=== PATIENT | female | born 1950 | race Caucasian/White ===

== ENCOUNTER → 2016-04-01 | Outpatient (CLI) | payer OTHER, MEDICARE ==
[~2016-04-01] MED LIST: ASPI81TA28 PO; CHOL2000 PO; EFFSR150 PO; GABA-113 PO; HMLI SC; INSDGIPEN SC; INSU100I2 SC; INSUINJ SC; METF-384 PO; NXM/40 PO; SIMV20TA2 PO; VENL150T33 PO
[2016-04-01 13:22] LABS: ALT/SGPT 22 U/L (12-78); BLOOD UREA NITROGEN 16 mg/dl (7-18); BUN/CREATININE RATIO 24.1 (10-20); CALCIUM 8.9 mg/dl (8.5-10.1); CARBON DIOXIDE 28 mmol/L (21-32); CHLORIDE 105 mmol/L (98-107); CHOLESTEROL 249 mg/dl (0-200); CREATININE 0.68 mg/dl (0.60-1.20); GLUCOSE 160 mg/dl (70-99); POTASSIUM 4.1 mmol/L (3.5-5.1); SODIUM 141 mmol/L (136-145); TRIGLYCERIDES 108 mg/dl (0-150); VERY LOW DENSITY LIPOPROT CALC 22 mg/dl
[2016-04-01 13:25] LABS: ALB/GLOB RATIO 0.9 (0.9-2); ALKALINE PHOSPHATASE 105 U/L (45-117); AST/SGOT 14 U/L (15-37); CHOLESTEROL/HDL RATIO 3.2; HDL CHOLESTEROL 77 mg/dl; LDL CHOLESTEROL CALCULATED 150 mg/dl
[2016-04-01 13:34] LABS: ESTIMATED AVERAGE GLUCOSE 286 mg/dl; HA1C FLAG Normal (Normal)
== END | disposition home or self-care (01) ==
LOC: C.LABBC 11:57
PROVIDERS: ATTEND Internal Medicine Geriatric Medicine
DX: E78.5 Hyperlipidemia, unspecified (principal); E11.65 Type 2 diabetes mellitus with hyperglycemia

== ENCOUNTER → 2016-06-24 | Outpatient (CLI) | payer OTHER, MEDICARE ==
[2016-06-24 13:14] LABS: URINE APPEARANCE CLEAR (CLEAR); URINE BILIRUBIN NEG (NEG); URINE COLOR YELLOW; URINE NITRITE NEG (NEG); URINE PH 6.5 (4.5-7.5); UROBILINOGEN NEG (NEG)
[2016-06-24 13:19] LABS: MANUAL MICROSCOPIC REQUIRED? NO; REVIEW REQ? NO
== END | disposition home or self-care (01) ==
LOC: C.LABBC 11:10
PROVIDERS: ATTEND Internal Medicine Geriatric Medicine
DX: R39.9 Unspecified symptoms and signs involving the genitourinary system (principal)

== ENCOUNTER → 2016-07-21 | Outpatient (CLI) | payer OTHER, MEDICARE ==
[~2016-07-21] MED LIST changes: -ASPI81TA28 PO; -INSUINJ SC
--- NOTE | 2016-07-21 16:09 | MAMMOGRAPHY REPORT ---
BILATERAL DIGITAL SCREENING MAMMOGRAM WITH CAD: 07/21/2016 CLINICAL HISTORY: Routine screening. Patient has no complaints. TECHNIQUE: Current study was also evaluated with a Computer Aided Detection (CAD) system. Bilatera l CC and MLO views were obtained. COMPARISON: Comparison is made to exams dated: 07/02/2015 mammogram, 09/10/2013 mammogram, 08/20/2012 m ammogram, 08/17/2009 mammogram - [facility], 08/04/2008, and 02/18/2008 mammogram - [facility]. BREAST COMPOSITION: There are scattered areas of fibroglandular density in both breasts. FINDINGS: No suspicious masses, calcifications, or areas of architectural distortion are noted in e ither breast. There has been no significant interval change compared to prior exams. Bilateral matt gn appearing masses/asymmetries are stable compared to prior exams. Bilateral benign-appearing calc ifications are stable. IMPRESSION: ACR BI-RADS CATEGORY 2: BENIGN There is no mammographic evidence of malignancy. A 1 year screening mammogram is recommended. The p atient will receive written notification of the results. Approximately 10% of breast cancers are not detected with mammography. A negative mammographic repor t should not delay biopsy if a clinically suggestive mass is present. Sue Nur M.D. /:07/21/2016 16:00:06 Asphalt Paving Superintendent: Mary Carmen Ortiz, [facility] letter sent: Normal 1/2 BI-RADS Code: ACR BI-RADS Category 2: Benign
== END | disposition home or self-care (01) ==
LOC: C.MAMM 13:07
PROVIDERS: ATTEND Internal Medicine Geriatric Medicine
DX: Z12.31 Encounter for screening mammogram for malignant neoplasm of breast (principal)

== ENCOUNTER → 2016-08-08 | Outpatient (CLI) | payer OTHER, MEDICARE ==
[2016-08-08 15:10] LABS: MANUAL MICROSCOPIC REQUIRED? YES; URINE APPEARANCE CLOUDY (CLEAR); URINE BILIRUBIN NEG (NEG); URINE NITRITE NEG (NEG); URINE SPECIFIC GRAVITY 1.025 (1.000-1.030); UROBILINOGEN NEG (NEG)
[2016-08-08 15:20] LABS: REVIEW REQ? NO; URINE COLOR YELLOW
[2016-08-08 15:22] LABS: URINE RBC 0-4 /hpf (0-4)
[2016-08-08 15:23] LABS: URINE BACTERIA 2+ (NEG)
[2016-08-08 15:55] LABS: RATIO 21.6 mcg/mg (0-30.0)
[2016-08-09 06:25] LABS: ESTIMATED AVERAGE GLUCOSE 269 mg/dl; HA1C FLAG Normal (Normal)
== END | disposition home or self-care (01) ==
LOC: C.LABBC 10:41
PROVIDERS: ATTEND Physician Assistant
DX: E66.9 Obesity, unspecified (principal); E11.65 Type 2 diabetes mellitus with hyperglycemia; R30.0 Dysuria

== ENCOUNTER 2016-10-28 16:39 | Emergency (ER) | payer OTHER, MEDICARE ==
[~2016-10-28 16:39] MED LIST changes: -CHOL2000 PO; -INSU100I2 SC; -VENL150T33 PO
[2016-10-28 16:44] VITALS: BP 119/77; PULSE 98; TEMP 36.7; O2SAT 98
[2016-10-28] MEDS ORDERED: VENL150T33 PO (17:26)
[2016-10-28] MEDS ORDERED: INSU100I2 SC ×3 (17:26)
[2016-10-28] MEDS ORDERED: CHOL2000 PO (17:27)
--- NOTE | 2016-10-28 20:31 | EMERGENCY ROOM VISIT NOTE ---
History First contact with patient: 16:47 Chief Complaint: FOREIGNBODY ANY BODY PART Stated Complaint: SOMETHING STUCK IN R EAR History of Present Illness The patient is a 66 year old female who presents to the Emergency Room with complaints of a Q-tip head stuck in her ear. The patient reports that she uses Q-tips daily. Her right ear has been itchy lately. She stuck a generic Q-tip in the ear and the cotton fell off. She was seen at her PCPs office where they tried to flush it out without success. The patient denies any pain or bleeding from the ear. Review of Systems 10 system review was performed and was negative except for pertinent positives and negatives as indicated in history of present illness Past Medical/Surgical History Medical Problems: (1) Gastroparesis (2) Major Depressive Disorder, Single Episode, Unspecified (3) Reflux Esophagitis (4) Type 2 Diabetes Mellitus Without Complications Surgical Problems: (1) History of right knee joint replacement Social History Problems: (1) Radiculopathy, Lumbar Region Family History FH: cancer Social History Smoking Status: Current Every Day Smoker Alcohol Use: occasionally Marital Status: Occupation Status: disabled Current/Historical Medications Scheduled Cholecalciferol (Vitamin D3), 1 CAP PO DAILY Esomeprazole Magnesium (Nexium), 40 MG PO DAILY Gabapentin (Neurontin), 300 MG PO BID Insulin Glargine (Lantus Solostar), 68 SC QPM Insulin Lispro (Human) (Humalog Kwikpen), 20 UNITS SC QAM Insulin Lispro (Human) (Humalog Kwikpen), 15 UNITS SC W/LUNCH Insulin Lispro (Human) (Humalog Kwikpen), 28 UNITS SC W/SUPPER Metformin Hcl (Glucophage), 1,000 MG PO BID Simvastatin (Zocor), 20 MG PO QPM Venlafaxine Hcl (Venlafaxine Hcl Er), 1 TAB PO DAILY Physical Exam Vital Signs Date Time Temp Pulse Resp B/P (MAP) Pulse Ox O2 Delivery O2 Flow Rate FiO2 10/28/16 16:44 36.7 98 20 119/77 98 Room Air Pain Rating (0-10): 0 Physical Exam CONSTITUTIONAL: Healthy and well nourished. Alert and oriented X 3 with positive affect. She does not appear in any acute distress. HEENT: Normocephalic, atraumatic. Pupils equal, round and reactive. Examination of the right ear shows white cotton consistent with a head of a Q- tip. There is no obvious trauma to the outer ear or auditory canal. Examination of the left ear shows significant scarring of the TM and external auditory canal. There is no erythema or edema of the auditory canal. NECK: Full active range of motion without discomfort. RESPIRATORY: Clear to auscultation bilaterally with no wheezing, crackles, rhonchi or stridor. CARDIOVASCULAR: Regular rate and rhythm with no murmurs, rubs or gallops. INTEGUMENTARY: No rash or other significant dermatologic conditions noted. NEUROLOGIC: No focal neurologic deficits noted. Medical Decision & Procedures Procedure The cotton Q-tip head was successfully removed using an otoscope and mosquito forceps. ED Course Patient history and physical exam were performed. Nurse's notes were reviewed. Vital signs were reviewed and normal. Foreign-body removal was performed using an otoscope and mosquito forceps. Reexamination of the ear does not show any additional trauma. The patient does have chronic changes in both ears consistent with prior Q-tip trauma. The patient was encouraged to refrain from cleaning her ears with a Q-tip. I did suggest using mineral oil. She may also follow-up with her family doctor for further management. The patient voiced understanding of all discharge instructions, and denied any pain at the time of discharge. The patient was also seen and examined by Dr. Trejo, ED attending physician, who agrees with workup and plan of care. Medical Decision Medication Reconcilliation Current Medication List: was personally reviewed by me Blood Pressure Screening Patient's blood pressure: Normal blood pressure Impression Primary Impression: Foreign body of ear, right Departure Information Dispostion Home / Self-Care Condition GOOD Forms HOME CARE DOCUMENTATION FORM, IMPORTANT VISIT INFORMATION Patient Instructions My [facility] [employer] Additional Instructions Do not use Q-tips inside the ear canal as it can cause damage and infection, plus impact what little earwax you may have further into the canal. Suggest applying a drop of mineral oil twice weekly over the next few weeks, then once weekly to help moisturize and keep your earwax soft. It is much safer to irrigate the ear with warm water and bulb suction. Problem Qualifiers Primary Impression: Foreign body of ear, right Encounter type: initial encounter Qualified Codes: T16.1XXA - Foreign body in right ear, initial encounter
== END 2016-10-28 17:27 | disposition home or self-care (01) ==
LOC: C.EDB 16:40 → C.EDD 17:27
DX: T16.1XXA Foreign body in right ear, initial encounter (principal); X58.XXXA Exposure to other specified factors, initial encounter; F32.9 Major depressive disorder, single episode, unspecified; K21.0 Gastro-esophageal reflux disease with esophagitis; K31.84 Gastroparesis; Z80.9 Family history of malignant neoplasm, unspecified; F17.210 Nicotine dependence, cigarettes, uncomplicated; Z79.4 Long term (current) use of insulin; Z79.899 Other long term (current) drug therapy; E78.5 Hyperlipidemia, unspecified; E11.65 Type 2 diabetes mellitus with hyperglycemia; R53.83 Other fatigue; E55.9 Vitamin D deficiency, unspecified; R39.9 Unspecified symptoms and signs involving the genitourinary system

== ENCOUNTER → 2016-10-28 | Outpatient (CLI) | payer OTHER, MEDICARE ==
[2016-10-28 13:14] LABS: BASO % 0.4 %; BASO ABS # 0.03 K/uL (0-0.2); COMPLETE YES; EOS % 3.2 %; HEMATOCRIT 42.5 % (37-47); IG% 0.3 %; LYMPH % 29.8 %; LYMPH ABS # 2.36 K/uL (1.2-3.4); MEAN CELL VOLUME 85.9 fL (80-100); MEAN CORPUSCULAR HEMOGLOBIN 28.3 pg (25-34); MEAN CORPUSCULAR HGB CONC 32.9 g/dl (32-36); MEAN PLATELET VOLUME 9.6 fL (7.4-10.4); MONO % 5.5 %; NEUT % 60.8 %; PLATELET COUNT 271 K/uL (130-400); RED BLOOD COUNT 4.95 M/uL (4.2-5.4); WHITE BLOOD COUNT 7.93 K/uL (4.8-10.8)
[2016-10-28 13:30] LABS: ALT/SGPT 34 U/L (12-78); BLOOD UREA NITROGEN 14 mg/dl (7-18); BUN/CREATININE RATIO 18.5 (10-20); CALCIUM 9.3 mg/dl (8.5-10.1); CARBON DIOXIDE 31 mmol/L (21-32); CHLORIDE 99 mmol/L (98-107); CHOLESTEROL 164 mg/dl (0-200); CREATININE 0.78 mg/dl (0.60-1.20); GLUCOSE 263 mg/dl (70-99); POTASSIUM 3.7 mmol/L (3.5-5.1); SODIUM 136 mmol/L (136-145)
[2016-10-28 13:39] LABS: ALKALINE PHOSPHATASE 127 U/L (45-117); AST/SGOT 13 U/L (15-37); CHOLESTEROL/HDL RATIO 2.6; HDL CHOLESTEROL 64 mg/dl; LDL CHOLESTEROL CALCULATED 76 mg/dl; TRIGLYCERIDES 121 mg/dl (0-150); VERY LOW DENSITY LIPOPROT CALC 24 mg/dl
[2016-10-28 14:54] LABS: MANUAL MICROSCOPIC REQUIRED? YES; URINE APPEARANCE SL CLOUDY (CLEAR); URINE BILIRUBIN NEG (NEG); URINE COLOR YELLOW; URINE NITRITE POS (NEG); URINE SPECIFIC GRAVITY >= 1.030 (1.000-1.030); UROBILINOGEN NEG (NEG)
[2016-10-28 14:55] LABS: REVIEW REQ? NO
[2016-10-28 15:03] LABS: ZZUR CULT IF INDIC CLEAN CATCH YES
[2016-10-28 15:10] LABS: URINE BACTERIA 4+ (NEG)
[2016-10-28 15:11] LABS: URINE RBC 0-4 /hpf (0-4)
== END | disposition home or self-care (01) ==
LOC: C.LABBC 12:09
PROVIDERS: ATTEND Internal Medicine Geriatric Medicine
DX: E78.5 Hyperlipidemia, unspecified (principal); E11.65 Type 2 diabetes mellitus with hyperglycemia; R53.83 Other fatigue; E55.9 Vitamin D deficiency, unspecified; R39.9 Unspecified symptoms and signs involving the genitourinary system

== ENCOUNTER → 2016-11-18 | Outpatient (CLI) | payer OTHER, MEDICARE ==
[~2016-11-18] MED LIST changes: +CHOL2000 PO; -EFFSR150 PO; -HMLI SC; +INSU100I2 SC; +VENL150T33 PO
[2016-11-18 13:39] LABS: ESTIMATED AVERAGE GLUCOSE 246 mg/dl; HA1C FLAG Normal (Normal)
== END | disposition home or self-care (01) ==
LOC: C.LABBC 11:43
PROVIDERS: ATTEND Nurse Practitioner Family
DX: E11.65 Type 2 diabetes mellitus with hyperglycemia (principal)

== ENCOUNTER → 2017-01-08 | Outpatient (CLI) | payer OTHER, MEDICARE ==
--- NOTE | 2017-01-08 16:53 | DIAGNOSTIC IMAGING REPORT ---
CHEST 2 VIEWS ROUTINE CLINICAL HISTORY: Shortness of breath on exertion. COMPARISON STUDY: Chest radiograph February 09, 2015. FINDINGS: Lung volumes are normal. No pneumothorax or pleural effusion is present. Minimal left basilar opacity favors atelectasis. There is no consolidation to suggest pneumonia and there is no evidence of pulmonary edema. Cardiomediastinal silhouette is stable. IMPRESSION: No acute cardiopulmonary findings. Electronically signed by: Noel New M.D. 01/08/2017 4:52 PM Dictated Date/Time: 01/08/2017 4:51 PM
== END | disposition home or self-care (01) ==
LOC: C.RADBC 15:44
PROVIDERS: ATTEND Physician Assistant
DX: R06.02 Shortness of breath (principal)

== ENCOUNTER 2017-02-13 10:14 | Inpatient (IN) | payer OTHER, MEDICARE ==
[~2017-02-13] VITALS: Ht 160 cm; Wt 97.3 kg
[2017-02-13] MEDS ORDERED: SODIUM CHLORIDE 0.9% 1000ML 2,000 ML IV STA (10:31)
[2017-02-13 10:39] LABS: MANUAL MICROSCOPIC REQUIRED? YES; URINE APPEARANCE CLEAR (CLEAR); URINE BILIRUBIN NEG (NEG); URINE COLOR YELLOW; URINE NITRITE NEG (NEG); URINE SPECIFIC GRAVITY <= 1.005 (1.000-1.030); UROBILINOGEN NEG (NEG)
[2017-02-13 10:42] LABS: REVIEW REQ? NO
[2017-02-13 10:50] LABS: BASO % 0.3 %; BASO ABS # 0.03 K/uL (0-0.2); COMPLETE YES; EOS % 0.9 %; HEMATOCRIT 40.2 % (37-47); IG% 0.3 %; LYMPH % 15.7 %; LYMPH ABS # 1.62 K/uL (1.2-3.4); MEAN CELL VOLUME 85.9 fL (80-100); MEAN CORPUSCULAR HEMOGLOBIN 29.1 pg (25-34); MEAN CORPUSCULAR HGB CONC 33.8 g/dl (32-36); MEAN PLATELET VOLUME 9.7 fL (7.4-10.4); MONO % 4.6 %; NEUT % 78.2 %; PLATELET COUNT 258 K/uL (130-400); RED BLOOD COUNT 4.68 M/uL (4.2-5.4); WHITE BLOOD COUNT 10.29 K/uL (4.8-10.8)
[2017-02-13] MEDS ORDERED: INSULIN IV INFUSION PROTOCOL STA ×2 (10:51→12:45)
[2017-02-13 10:55] LABS: ISTAT CARBON DIOXIDE 22 mEq/l (24-31); ISTAT CHLORIDE 96 mEq/L (101-112); ISTAT CREATININE 0.7 mg/dl (0.6-1.3); ISTAT HEMATOCRIT 41 % (37-47); ISTAT HEMOGLOBIN 13.9 g/dl (12.0-16.0); ISTAT IONIZED CALCIUM 1.26 mmol/l (1.12-1.32); ISTAT SODIUM 132 mEq/L (135-144)
[2017-02-13 10:57] LABS: URINE BACTERIA NEG (NEG); URINE RBC 0-4 /hpf (0-4)
[2017-02-13 10:59] LABS: ZZUR CULT IF INDIC CLEAN CATCH YES
[2017-02-13] MEDS ORDERED: DKA GOAL RANGE 150-250 mg/dl 1 EA ONE (11:00)
[2017-02-13] MEDS ORDERED: INSULIN PROTOCOL GOAL RANGE ONE (11:00)
[2017-02-13] MEDS ORDERED: MODERATE STRESS LEVEL ONE ×2 (11:00→12:45)
[2017-02-13 11:11] LABS: BUN/CREATININE RATIO 23.4 (10-20); CALCIUM 9.7 mg/dl (8.5-10.1); CREATININE 1.03 mg/dl (0.60-1.20); POTASSIUM 4.5 mmol/L (3.5-5.1)
[2017-02-13 11:22] LABS: BETA-HYDROXYBUTYRATE 29.34 mg/dL (0.2-2.81)
[2017-02-13] MEDS ORDERED: DEXTROSE 50% 50 ML SYR IV PRN (11:30)
[2017-02-13] MEDS ORDERED: GLUCAGON FOR INJ 1 MG VIAL SQ PRN (11:30)
[2017-02-13] MEDS ORDERED: INSULIN REGULAR 250 UNITS in SODIUM CHLORIDE 0.9% 250ML 250 ML IV SCH (11:30)
[2017-02-13] MEDS ORDERED: GLUCOSE 40% GEL 15 GM TUBE PO PRN (11:30)
[2017-02-13] MEDS ORDERED: NovoLIN R BOLUS FROM BAG IV ONE (11:30)
[2017-02-13] MEDS ORDERED: GLUCOSE 10 TABS/TUBE PO PRN (11:30)
[2017-02-13 12:10] VITALS: O2SAT 96; BMI 36.7
[2017-02-13 12:18] LABS: VEN BLD GAS O2 SATURATION < 60.0 %; VEN BLOOD GAS BASE EXCESS -1.7 mEq/L; VENOUS BLOOD GAS PCO2 50 mmHg (38.0-50.0); VENOUS BLOOD GAS PO2 28 mmHg
[2017-02-13 12:38] LABS: BUN/CREATININE RATIO 20.8 (10-20); CALCIUM 9.1 mg/dl (8.5-10.1); CREATININE 1.08 mg/dl (0.60-1.20); MAGNESIUM 2.3 mg/dl (1.8-2.4); PHOSPHORUS 4.1 mg/dl (2.5-4.9); POTASSIUM 4.3 mmol/L (3.5-5.1)
[2017-02-13] MEDS ORDERED: ONDANSETRON INJ 2 MG/ML 2 ML VIAL IV PRN (12:45)
[2017-02-13] MEDS ORDERED: PENDING NSS+20mEq KCL IVF SCH (12:45)
[2017-02-13] MEDS ORDERED: MAGNESIUM HYDROXIDE SUSP 30 ML UDC PO PRN (12:45)
[2017-02-13] MEDS ORDERED: ACETAMINOPHEN 325 MG TAB PO PRN (12:45)
[2017-02-13] MEDS ORDERED: HHS GOAL RANGE 250-350 mg/dl ONE (12:45)
[2017-02-13] MEDS ORDERED: PHARMACY GLYCEMIC MGMT CONSULT PRN (12:45)
[2017-02-13 12:55] LABS: BETA-HYDROXYBUTYRATE 28.94 mg/dL (0.2-2.81)
[2017-02-13] MEDS ORDERED: INSULIN ASPART 100 UNITS/ML 3 ML PEN SC SCH (13:00)
--- NOTE | 2017-02-13 13:04 | History and Physical ---
History & Physical Date & Time of Service: Feb 13, 2017 at 12:50 Chief Complaint: Confusion/Hyperglycemia Primary Care Physician: Dewayne Kay M.D. History of Present Illness Source: patient 66 y/o F who was sent here from her pain management office for AMS and elevated BS. Pt states that she was very thirsty all night last night, so she tried to stay hydrated by having several Coke Zeros and some sort of strawberries and cream breakfast supplement. She was having increased urination as well. This continued into today. She went to her scheduled pain management appt and had ongoing increased thirst and was noted to be somewhat confused. They took her BS in the office and it was unreadable by their machine, so she was sent to [facility] ED for further evaluation. Pt states that she ate dinner at [facility] last night for friend's birthday. She took her humulog last night, but did not take her lantus as she thought it was too late in the night and did not want to take it at the same time as she took her humulog. She did not take her humulog this AM because she was not having breakfast until she met with a friend after her appt today. Pt states she otherwise is at her usual. She gets occasional n/t in her feet and this is worse today. Pt states she never usually has SOB, but she was SOB going up the stairs for her appt today. No SOB at rest and no chest pain. Pt denies fever, abd pain, n/v/c/d, LE pain or swelling. She states that she is always thirsty and this has increased over the last 1-2 weeks. She does drink some water, but mostly Coke Zero. She usually does not have breakfast and therefore does not usually take her AM humalog. Pt states she follows with a DM educator named Criselda Pt is very concerned about a dog she is watching for a friend. Food was put out by the supervisor fabrication and assembly this AM, but she was to care for the dog tonight. He does have access to the outdoors, but no one else is available to feed him. She is considering leaving [place] for this purpose. Past Medical/Surgical History DM Hyperlipidemia Gastroparesis Depression Family History Family history was reviewed; no changes noted. Social History Smoking Status: Never Smoker Alcohol Use: occasionally (rare) Drug Use: none Marital Status: Housing status: lives with family Occupational Status: disabled Immunizations History of Influenza Vaccine: No History of Tetanus Vaccine?: Unknown History of Pneumococcal: Unknown History of Hepatitis B Vaccine: Unknown Multi-Drug Resistant Organisms History of MDRO: No Allergies Coded Allergies: No Known Allergies (Verified , 02/13/17) Home Medications Scheduled Cholecalciferol (Vitamin D3), 1 CAP PO 1700 Esomeprazole Magnesium (Nexium), 40 MG PO DAILY Gabapentin (Neurontin), 300 MG PO BID Insulin Glargine (Lantus Solostar), 70 SC QPM Insulin Lispro (Human) (Humalog Kwikpen), 20 UNITS SC QAM Insulin Lispro (Human) (Humalog Kwikpen), 15 UNITS SC W/LUNCH Insulin Lispro (Human) (Humalog Kwikpen), 28 UNITS SC W/SUPPER Metformin Hcl (Glucophage), 1,000 MG PO BID Simvastatin (Zocor), 20 MG PO QPM Venlafaxine Hcl (Venlafaxine Hcl Er), 1 TAB PO DAILY Review of Systems Pertinent positives and negatives reviewed in HPI--all others negative Physical Exam Vital Signs Date Time Temp Pulse Resp B/P (MAP) Pulse Ox O2 Delivery O2 Flow Rate FiO2 02/13/17 12:10 96 Room Air 02/13/17 11:52 77 20 138/73 96 02/13/17 10:26 87 02/13/17 10:21 36.6 88 18 158/83 95 Room Air General Appearance: no apparent distress, + obese Head: normocephalic, atraumatic Eyes: normal inspection, EOMI ENT: hearing grossly normal Neck: supple Respiratory/Chest: normal breath sounds, no respiratory distress Cardiovascular: regular rate, rhythm, no edema Abdomen/GI: non tender, soft Extremities/Musculoskelatal: no calf tenderness, no pedal edema Neurologic/Psych: alert, oriented x 3 Skin: normal color, warm/dry Diagnostics Laboratory Results Results Past 24 Hours Test 02/13/17 10:17 02/13/17 10:19 02/13/17 10:20 02/13/17 10:34 Range/Units Urine Color YELLOW Urine Appearance CLEAR CLEAR Urine pH 5.0 4.5-7.5 Urine Specific Hoven <= 1.005 1.000-1.030 Urine Protein NEG NEG Urine Glucose (UA) 3+ NEG Urine Ketones 2+ NEG Urine Occult Blood TRACE NEG Urine Nitrite NEG NEG Urine Bilirubin NEG NEG Urine Urobilinogen NEG NEG Urine Leukocyte Esterase NEG NEG Urine RBC 0-4 0-4 /hpf Urine WBC 5-10 0-5 /hpf Urine Epithelial Cells 10-20 0-5 /lpf Urine Bacteria NEG NEG Bedside Glucose > 600 > 600 70-90 mg/dl White Blood Count 10.29 4.8-10.8 K/uL Red Blood Count 4.68 4.2-5.4 M/uL Hemoglobin 13.6 12.0-16.0 g/dL Hematocrit 40.2 37-47 % Mean Corpuscular Volume 85.9 80-100 fL Mean Corpuscular Hemoglobin 29.1 25-34 pg Mean Corpuscular Hemoglobin Concent 33.8 32-36 g/dl Platelet Count 258 130-400 K/uL Mean Platelet Volume 9.7 7.4-10.4 fL Neutrophils (%) (Auto) 78.2 % Lymphocytes (%) (Auto) 15.7 % Monocytes (%) (Auto) 4.6 % Eosinophils (%) (Auto) 0.9 % Basophils (%) (Auto) 0.3 % Neutrophils # (Auto) 8.05 1.4-6.5 K/uL Lymphocytes # (Auto) 1.62 1.2-3.4 K/uL Monocytes # (Auto) 0.47 0.11-0.59 K/uL Eosinophils # (Auto) 0.09 0-0.5 K/uL Basophils # (Auto) 0.03 0-0.2 K/uL RDW Standard Deviation 40.8 36.4-46.3 fL RDW Coefficient of Variation 13.2 11.5-14.5 % Immature Granulocyte % (Auto) 0.3 % Immature Granulocyte # (Auto) 0.03 0.00-0.02 K/uL Sodium Level 131 136-145 mmol/L Potassium Level 4.5 3.5-5.1 mmol/L Chloride Level 96 98-107 mmol/L Carbon Dioxide Level 22 21-32 mmol/L Anion Gap 13.0 3-11 mmol/L Blood Urea Nitrogen 24 7-18 mg/dl Creatinine 1.03 0.60-1.20 mg/dl Est Creatinine Clear Calc Drug Dose 59.3 ml/min Estimated GFR () 66.1 Estimated GFR (Non- 57.0 BUN/Creatinine Ratio 23.4 10-20 Random Glucose 695 70-99 mg/dl Calcium Level 9.7 8.5-10.1 mg/dl Total Bilirubin 0.8 0.2-1 mg/dl Direct Bilirubin 0.2 0-0.2 mg/dl Aspartate Amino Transf (AST/SGOT) 11 15-37 U/L Alanine Aminotransferase (ALT/SGPT) 40 12-78 U/L Alkaline Phosphatase 213 45-117 U/L Total Protein 7.8 6.4-8.2 gm/dl Albumin 3.5 3.4-5.0 gm/dl Lipase 124 73-393 U/L Beta-Hydroxybutyric Acid 29.34 0.2-2.81 mg/dL Test 02/13/17 10:43 02/13/17 12:01 Range/Units Bedside Hemoglobin 13.9 12.0-16.0 g/dl Bedside Hematocrit 41 37-47 % Bedside Sodium 132 135-144 mEq/L Bedside Potassium 4.6 3.3-5.0 mEq/L Bedside Chloride 96 101-112 mEq/L Bedside Total CO2 22 24-31 mEq/l Anion Gap 19.0 11.0 3-11 mmol/L Bedside Blood Urea Nitrogen 24 7-18 mg/dl Bedside Creatinine 0.7 0.6-1.3 mg/dl Bedside Glucose (other) > 700 70-99 mg/dl Bedside Ionized Calcium (Wiley) 1.26 1.12-1.32 mmol/l Venous Blood pH 7.31 7.36-7.41 Venous Blood Partial Pressure CO2 50 38.0-50.0 mmHg Venous Blood Partial Pressure O2 28 mmHg Venous Blood HCO3 25 mmol/L Venous Blood Oxygen Saturation < 60.0 % Venous Blood Base Excess -1.7 mEq/L Sodium Level 135 136-145 mmol/L Potassium Level 4.3 3.5-5.1 mmol/L Chloride Level 100 98-107 mmol/L Carbon Dioxide Level 24 21-32 mmol/L Blood Urea Nitrogen 22 7-18 mg/dl Creatinine 1.08 0.60-1.20 mg/dl Est Creatinine Clear Calc Drug Dose 56.6 ml/min Estimated GFR () 62.4 Estimated GFR (Non- 53.8 BUN/Creatinine Ratio 20.8 10-20 Random Glucose 592 70-99 mg/dl Calcium Level 9.1 8.5-10.1 mg/dl Phosphorus Level 4.1 2.5-4.9 mg/dl Magnesium Level 2.3 1.8-2.4 mg/dl Microbiology Results 02/13/17 Urine Culture, Received Pending Impression Assessment and Plan 66 y/o F who was sent to the ED from pain management office for AMS and hyperglycemia AMS/hyperglycemia: pt is known DM pt, seems related to missing insulin doses in the setting of a large meal DKA/HHS protocol with BS >700 on arrival Elevated BHA with mildly elevated AG of 13 on arrival, now corrected UA noted for glucose and ketones Monitor electrolytes Pt has dietary issues including minimal water intake and large diet soda/ artificial sugar use Has a DM educator Last A1c 10.2 (11/18/16), will recheck HypoNa: in the setting of hyperglycemia Monitor with insulin correction Depression: continue home meds Advised that artificial sugars can interact with depression/anxiety medications and worsen these conditions Other: Full code, although pt is conflicted about vent status. She is aware that she will be a full code as default but that she can change her mind regarding this at any time. She does not wish for prolonged life support. SCDs for DVT proph NPO with sips until BS in WNL Level of Care Telemetry Advanced Directives Existing Living Will: No Existing Power of Sampler Radioactive Waste: No Resuscitation Status FULL RESUSCITATION VTE Prophylaxis VTE Risk Assessment Done? Y/N: Yes Risk Level: Low
--- NOTE | 2017-02-13 14:12 | Pharmacy Progress Note ---
Glycemic Control Intl Consult Date of Service Feb 13, 2017. Scope Glycemic Pharmacist consulted by Dr Snow on 02/13/17 for glycemic control and to write orders per [facility] inpatient glycemic control protocol Objective Weight (Kilograms): 94.000 Accuchecks BSG (last 24hrs): Test 02/13/17 10:19 02/13/17 10:20 02/13/17 10:34 02/13/17 12:01 Bedside Glucose > 600 mg/dl (70-90) > 600 mg/dl (70-90) Random Glucose 695 mg/dl (70-99) 592 mg/dl (70-99) Laboratory Data (last 24hrs) Test 02/13/17 10:34 02/13/17 10:43 02/13/17 12:01 Anion Gap 13.0 mmol/L 19.0 mmol/L 11.0 mmol/L BUN/Creatinine Ratio 23.4 20.8 Blood Urea Nitrogen 24 mg/dl 22 mg/dl Creatinine 1.03 mg/dl 1.08 mg/dl Potassium Level 4.5 mmol/L 4.3 mmol/L Sodium Level 131 mmol/L 135 mmol/L White Blood Count 10.29 K/uL Red Blood Count 4.68 M/uL Hemoglobin 13.6 g/dL Hematocrit 40.2 % Mean Corpuscular Volume 85.9 fL Mean Corpuscular Hemoglobin 29.1 pg Mean Corpuscular Hemoglobin Concent 33.8 g/dl Platelet Count 258 K/uL Mean Platelet Volume 9.7 fL Neutrophils (%) (Auto) 78.2 % Lymphocytes (%) (Auto) 15.7 % Monocytes (%) (Auto) 4.6 % Eosinophils (%) (Auto) 0.9 % Basophils (%) (Auto) 0.3 % Neutrophils # (Auto) 8.05 K/uL Lymphocytes # (Auto) 1.62 K/uL Monocytes # (Auto) 0.47 K/uL Eosinophils # (Auto) 0.09 K/uL Basophils # (Auto) 0.03 K/uL HbA1c Test 02/13/17 10:34 Recent Pertinent Medications Outpatient Anti-diabetic Regimen: * Lantus 70 units QPM * Humalog units TIDM - sometimes missed breakfast dosing * Metformin 1 g PO BIDM * A1C = 10.2% 11/18/16 Assessment & Plan ASSESSMENT: * 66 yo T2D female admitted with severe hyperglycemia/HHS * Most recent A1c >9% indicative of poor glycemic control * Pt with extreme thirst over the past 24 hours and drank multiple coke zeros - pt does not like to drink water * Following HHS recommendations - initiate aggressive fluid replacement in addition to insulin drip per HHS protocol * Hold SQ insulin at this time and reassess in the AM PLAN FOR INPATIENT GLYCEMIC CONTROL: * Start IV insulin infusion per HHS protocol * Goal Range 200 - 300 mg/dl * Please note that the plan above was derived based on current level of insulin resistance and hospital stress. These recommendations are appropriate for inpatient admission only. Plan of care upon discharge will need to be reassessed to avoid potential outpatient hypo/hyperglycemia. Thank you.
--- NOTE | 2017-02-13 14:13 | EMERGENCY ROOM VISIT NOTE ---
History Report prepared by Susanne: Shelly Vick Under the Supervision of: Dr. Alan Miller D.O. First contact with patient: 10:15 Stated Complaint: CONFUSION/HYPERGLYCEMIA History of Present Illness The patient is a 66 year old female who presents to the Emergency Room with complaints of persistent hyperglycemia that was found today prior to arrival. The patient states that since last evening she was noticing increased thirst and urination. She states that today she went for a follow up appointment with the pain clinic after she got an epidural two weeks ago. The patient states that she received the epidural due to pain that has been radiating down her legs. She states that she is a diabetic but denies checking her blood glucose her level. She states that she took her normal Humalog last night and Metformin. The patient states that she was supposed to take 71 units of Lantus last evening but states that she did not. Pt denies headache, change in vision , fevers, chest pain, shortness of breath, nausea, vomiting, diarrhea, pain with urination, and melena. Source of History: patient Onset: prior to arrival Position: other (global) Quality: other (hyperglycemia) Timing: other (persistent) Note: Associated symptoms: increased urination and thirst Review of Systems See HPI for pertinent positives & negatives. A total of 10 systems reviewed and were otherwise negative. Past Medical & Surgical Medical Problems: (1) Altered mental status (2) Gastroparesis (3) Major Depressive Disorder, Single Episode, Unspecified (4) Reflux Esophagitis (5) Type 2 Diabetes Mellitus Without Complications Surgical Problems: (1) History of right knee joint replacement Social History Problems: (1) Radiculopathy, Lumbar Region Family History FH: cancer Social History Smoking Status: Never Smoker Alcohol Use: occasionally Marital Status: Occupation Status: disabled Current/Historical Medications Scheduled Cholecalciferol (Vitamin D3), 1 CAP PO 1700 Esomeprazole Magnesium (Nexium), 40 MG PO DAILY Gabapentin (Neurontin), 300 MG PO BID Insulin Glargine (Lantus Solostar), 70 SC QPM Insulin Lispro (Human) (Humalog Kwikpen), 20 UNITS SC QAM Insulin Lispro (Human) (Humalog Kwikpen), 15 UNITS SC W/LUNCH Insulin Lispro (Human) (Humalog Kwikpen), 28 UNITS SC W/SUPPER Metformin Hcl (Glucophage), 1,000 MG PO BID Simvastatin (Zocor), 20 MG PO QPM Venlafaxine Hcl (Venlafaxine Hcl Er), 1 TAB PO DAILY Allergies Coded Allergies: No Known Allergies (Verified , 02/13/17) Physical Exam Vital Signs Date Time Temp Pulse Resp B/P (MAP) Pulse Ox O2 Delivery O2 Flow Rate FiO2 02/13/17 13:36 81 18 138/73 99 02/13/17 12:10 96 Room Air 02/13/17 11:52 77 20 138/73 96 02/13/17 10:26 87 02/13/17 10:21 36.6 88 18 158/83 95 Room Air Physical Exam GENERAL: Sitting up in bed, anxious, alert, well appearing, well nourished, no distress, non-toxic EYE EXAM: normal conjunctiva. OROPHARYNX: no exudate, no erythema, lips, buccal mucosa, and tongue normal and mucous membranes are moist NECK: supple, no nuchal rigidity, no adenopathy, non-tender LUNGS: Clear to auscultation. Normal chest wall mechanics HEART: no murmurs, S1 normal and S2 normal ABDOMEN: abdomen soft, non-tender, normo-active bowel sounds, no masses, no rebound or guarding. BACK: Back is symmetrical on inspection and there is no deformity, no midline tenderness, no CVA tenderness. SKIN: no rashes and no bruising UPPER EXTREMITIES: upper extremities are grossly normal. LOWER EXTREMITIES: No pitting edema. NEURO EXAM: Oriented to person, place, year, and day, cranial nerves II-XII grossly intact, normal speech, no gross weakness of arms, no gross weakness of legs. Medical Decision & Procedures Laboratory Results 02/13/17 10:34 Red Blood Count 4.68, Mean Corpuscular Volume 85.9, Mean Corpuscular Hemoglobin 29.1, Mean Corpuscular Hemoglobin Concent 33.8, Mean Platelet Volume 9.7, Neutrophils (%) (Auto) 78.2, Lymphocytes (%) (Auto) 15.7, Monocytes (%) (Auto) 4.6, Eosinophils (%) (Auto) 0.9, Basophils (%) (Auto) 0.3, Neutrophils # (Auto) 8.05, Lymphocytes # (Auto) 1.62, Monocytes # (Auto) 0.47, Eosinophils # (Auto) 0.09, Basophils # (Auto) 0.03 02/13/17 12:01 Test 02/13/17 10:17 02/13/17 10:20 02/13/17 10:34 02/13/17 10:43 Urine Color YELLOW Urine Appearance CLEAR (CLEAR) Urine pH 5.0 (4.5-7.5) Urine Specific [place] <= 1.005 (1.000-1.030) Urine Protein NEG (NEG) Urine Glucose (UA) 3+ (NEG) Urine Ketones 2+ (NEG) Urine Occult Blood TRACE (NEG) Urine Nitrite NEG (NEG) Urine Bilirubin NEG (NEG) Urine Urobilinogen NEG (NEG) Urine Leukocyte Esterase NEG (NEG) Urine RBC 0-4 /hpf (0-4) Urine WBC 5-10 /hpf (0-5) Urine Epithelial Cells 10-20 /lpf (0-5) Urine Bacteria NEG (NEG) Bedside Glucose > 600 mg/dl (70-90) White Blood Count 10.29 K/uL (4.8-10.8) Red Blood Count 4.68 M/uL (4.2-5.4) Hemoglobin 13.6 g/dL (12.0-16.0) Hematocrit 40.2 % (37-47) Mean Corpuscular Volume 85.9 fL (80-100) Mean Corpuscular Hemoglobin 29.1 pg (25-34) Mean Corpuscular Hemoglobin Concent 33.8 g/dl (32-36) Platelet Count 258 K/uL (130-400) Mean Platelet Volume 9.7 fL (7.4-10.4) Neutrophils (%) (Auto) 78.2 % Lymphocytes (%) (Auto) 15.7 % Monocytes (%) (Auto) 4.6 % Eosinophils (%) (Auto) 0.9 % Basophils (%) (Auto) 0.3 % Neutrophils # (Auto) 8.05 K/uL (1.4-6.5) Lymphocytes # (Auto) 1.62 K/uL (1.2-3.4) Monocytes # (Auto) 0.47 K/uL (0.11-0.59) Eosinophils # (Auto) 0.09 K/uL (0-0.5) Basophils # (Auto) 0.03 K/uL (0-0.2) RDW Standard Deviation 40.8 fL (36.4-46.3) RDW Coefficient of Variation 13.2 % (11.5-14.5) Immature Granulocyte % (Auto) 0.3 % Immature Granulocyte # (Auto) 0.03 K/uL (0.00-0.02) Total Bilirubin 0.8 mg/dl (0.2-1) Direct Bilirubin 0.2 mg/dl (0-0.2) Aspartate Amino Transf (AST/SGOT) 11 U/L (15-37) Alanine Aminotransferase (ALT/SGPT) 40 U/L (12-78) Alkaline Phosphatase 213 U/L (45-117) Total Protein 7.8 gm/dl (6.4-8.2) Albumin 3.5 gm/dl (3.4-5.0) Lipase 124 U/L (73-393) Bedside Hemoglobin 13.9 g/dl (12.0-16.0) Bedside Hematocrit 41 % (37-47) Bedside Sodium 132 mEq/L (135-144) Bedside Potassium 4.6 mEq/L (3.3-5.0) Bedside Chloride 96 mEq/L (101-112) Bedside Total CO2 22 mEq/l (24-31) Bedside Blood Urea Nitrogen 24 mg/dl (7-18) Bedside Creatinine 0.7 mg/dl (0.6-1.3) Bedside Glucose (other) > 700 mg/dl (70-99) Bedside Ionized Calcium (Wiley) 1.26 mmol/l (1.12-1.32) Test 02/13/17 12:01 Venous Blood pH 7.31 (7.36-7.41) Venous Blood Partial Pressure CO2 50 mmHg (38.0-50.0) Venous Blood Partial Pressure O2 28 mmHg Venous Blood HCO3 25 mmol/L Venous Blood Oxygen Saturation < 60.0 % Venous Blood Base Excess -1.7 mEq/L Anion Gap 11.0 mmol/L (3-11) Est Creatinine Clear Calc Drug Dose 56.6 ml/min Estimated GFR () 62.4 Estimated GFR (Non- 53.8 BUN/Creatinine Ratio 20.8 (10-20) Calcium Level 9.1 mg/dl (8.5-10.1) Phosphorus Level 4.1 mg/dl (2.5-4.9) Magnesium Level 2.3 mg/dl (1.8-2.4) Beta-Hydroxybutyric Acid 28.94 mg/dL (0.2-2.81) Laboratory results per my review. Medications Administered Medications (Trade) Dose Ordered Sig/Manjeet Route Start Time Stop Time Status Last Admin Dose Admin Sodium Chloride 2,000 ml @ 999 mls/hr Q2H1M STAT IV 02/13/17 10:31 02/13/17 12:31 DC 02/13/17 10:46 999 MLS/HR Insulin Human Regular (NovoLIN R BOLUS FROM BAG) 4 unit ONE ONCE IV 02/13/17 11:30 02/13/17 11:31 DC 02/13/17 11:47 4 UNIT Insulin Human Regular 250 units/ Sodium Chloride 252.5 ml @ 0 mls/hr Q24H IV 02/13/17 11:30 02/13/17 11:31 DC 02/13/17 11:45 5 MLS/HR ED Course ED COURSE: Vital signs were reviewed and showed hypertension The patients medical record was reviewed The above diagnostic studies were performed and reviewed. ED treatments and interventions as stated above. 1020: The patient was evaluated in room B12B. A complete history and physical examination was performed. 1031: Ordered Sodium Chloride 2000 ml @ 999 mls/hr IV. 1051: Ordered Insulin IV Infusion Protocol 1 ea Protocol NA. 1130: Ordered Glucagon 1 mg SQ, Dextrose 50 ml IV, Glucose 1 tabs PO, Glucose PO , Insulin Human Regular 250 units/Sodium Chloride 252.5 ml @ 9 mls/hr IV, Insulin Human Regular 4 units IV. 1148: I discussed the patients case with Dr. Snow [facility] [place]. She is going to evaluate the patient for further treatment. 1152: Upon reevaluation, the patient is resting comfortably.I discussed my findings with the patient and she understands and agrees with the treatment plan. Based on the patients age, coexisting illnesses, exam and lab findings the decision to treat as an inpatient was made. The patient remained stable while under my care. The patient will be evaluated for further management. 1300: Ordered Insulin Aspart Sliding Scale SC. Medical Decision Differential Diagnosis includes but is not limited to dehydration, stroke, anemia, hypoglycemia, hyponatremia, hypernatremia, urinary tract infection, pneumonia, bronchitis, sepsis, gastroenteritis, additional abdominal pathology, metabolic abnormalities and infections. Patient is a 66-year-old female who is a type II diabetic and was sent over from pain management for confusion associated with hyperglycemia. Upon arrival i-STAT shows blood sugar greater than 700. Patient is completely oriented. She is confused whether she took Lantus last night or not she notes she did not take her morning insulin. She has been feeling very thirsty. CBC was unremarkable. Mild anion gap of 13. Ketones in UA +2. Patient was updated bedside. She is given 2 L normal saline. She was placed on insulin drip and bolus. She is admitted to internal medicine for further workup of her DKA which I favor secondary to noncompliance with medications. Medication Reconcilliation Current Medication List: was personally reviewed by me Blood Pressure Screening Patient's blood pressure: Elevated blood pressure Blood pressure disposition: Elevated BP felt to be situational, Did not require urgent referral Consults Time Called: 1147 Consulting Physician: MACHELLE Palmer Returned Call: [phone] I discussed the patients case with MACHELLE Palmer. She is going to evaluate the patient for further treatment. Impression Primary Impression: DKA (diabetic ketoacidoses) Critical Care I have personally spent 35 minutes of critical care time in the direct management of this patient. This includes bedside care, interpretation of diagnostic studies, and testing, discussion with consultants, patient, and family members, and other required patient management activities. This 35 minutes is in excess of all separately billable procedures. Scribe Attestation The scribe's documentation has been prepared under my direction and personally reviewed by me in its entirety. I confirm that the note above accurately reflects all work, treatment, procedures, and medical decision making performed by me. Departure Information Dispostion Being Evaluated By Hospitalist Dewayne Mandel M.D. (PCP) Problem Qualifiers Primary Impression: DKA (diabetic ketoacidoses) Diabetes mellitus type: type 2 Diabetes mellitus complication detail: without coma Qualified Codes: E13.10 - Other specified diabetes mellitus with ketoacidosis without coma
[2017-02-13 14:24] VITALS: BP 122/66; PULSE 81; O2SAT 97
[2017-02-13] MEDS ORDERED: SODIUM CHLORIDE 0.9% 1000ML 1,000 ML IV SCH (15:00)
[2017-02-13] MEDS: INSULIN REGULAR 250 UNITS in SODIUM CHLORIDE 0.9% 250ML 250 ML IV SCH (15:00)
[2017-02-13 15:38] VITALS: BP 112/68; PULSE 88; TEMP 36.7; O2SAT 97
[2017-02-13] MEDS ORDERED: PNEUMOCOCCAL ADMINISTRATION CHARGE ONE (16:00)
[2017-02-13] MEDS ORDERED: PNEUMOCOCCAL POLYSACCHARIDES 25 MCG/0.5 ML VIAL/SYR IM. ONE (16:00)
[2017-02-13] MEDS ORDERED: PENDING D5 1/2NS+20mEq KCL IVF SCH (16:00)
[2017-02-13 16:40] LABS: BUN/CREATININE RATIO 19.5 (10-20); CALCIUM 9.4 mg/dl (8.5-10.1); CREATININE 0.88 mg/dl (0.60-1.20); MAGNESIUM 2.1 mg/dl (1.8-2.4)
[2017-02-13 16:55] LABS: PHOSPHORUS 2.9 mg/dl (2.5-4.9)
[2017-02-13] MEDS: INSULIN ASPART 100 UNITS/ML 3 ML PEN SC SCH ×2 (17:15→20:19)
[2017-02-13] MEDS ORDERED: NURSING DECISION MEDICATION ORDER SCH (18:15)
[2017-02-13] MEDS: CHOLECALCIFEROL 1000 INTER.UNIT TAB PO SCH (18:42)
[2017-02-13] MEDS: D5W AND 1/2NSS + 20MEQ KCL 1000 ML IV SCH ×2 (18:42→23:43)
[2017-02-13 19:17] VITALS: BP 110/63; PULSE 82; TEMP 37.1; O2SAT 94
[2017-02-13] MEDS: GABAPENTIN 300 MG CAP PO SCH (20:19)
[2017-02-13] MEDS: SIMVASTATIN 20 MG TAB PO SCH (20:19)
[2017-02-13 20:27] LABS: BUN/CREATININE RATIO 19.8 (10-20); CREATININE 0.77 mg/dl (0.60-1.20); PHOSPHORUS 3.2 mg/dl (2.5-4.9); POTASSIUM 3.8 mmol/L (3.5-5.1)
[2017-02-13 23:40] VITALS: BP 139/73; PULSE 71; TEMP 37; O2SAT 95
[2017-02-14] VITALS (10 sets, daily range): BP systolic 107–129; BP diastolic 66–81; PULSE 72–92; TEMP 36.5–37; O2SAT 94–98; Ht 160 cm; Wt 97.3 kg
[2017-02-14 00:22] LABS: BUN/CREATININE RATIO 18.5 (10-20); CALCIUM 8.4 mg/dl (8.5-10.1); CREATININE 0.72 mg/dl (0.60-1.20); MAGNESIUM 1.9 mg/dl (1.8-2.4); PHOSPHORUS 3.2 mg/dl (2.5-4.9); POTASSIUM 3.8 mmol/L (3.5-5.1)
[2017-02-14 04:31] LABS: BUN/CREATININE RATIO 13.3 (10-20); CALCIUM 8.5 mg/dl (8.5-10.1); CREATININE 0.9 mg/dl (0.60-1.20); MAGNESIUM 1.8 mg/dl (1.8-2.4); POTASSIUM 4.1 mmol/L (3.5-5.1)
[2017-02-14] MEDS: D5W AND 1/2NSS + 20MEQ KCL 1000 ML IV SCH ×2 (04:42→09:44)
[2017-02-14 07:47] LABS: ESTIMATED AVERAGE GLUCOSE 243 mg/dl; HA1C FLAG Normal (Normal)
[2017-02-14] MEDS: INSULIN ASPART 100 UNITS/ML 3 ML PEN SC SCH ×4 (08:00→21:03)
[2017-02-14] MEDS: PANTOprazole SOD 40 MG TAB PO SCH (08:17)
[2017-02-14] MEDS: VENLAFAXINE HCL XR 150 MG CAPXR PO SCH (08:17)
[2017-02-14] MEDS: GABAPENTIN 300 MG CAP PO SCH ×2 (08:17→21:00)
[2017-02-14 08:38] LABS: BUN/CREATININE RATIO 12.7 (10-20); CALCIUM 8.7 mg/dl (8.5-10.1); CREATININE 0.78 mg/dl (0.60-1.20); MAGNESIUM 1.8 mg/dl (1.8-2.4)
[2017-02-14 08:48] LABS: PHOSPHORUS 2.3 mg/dl (2.5-4.9)
[2017-02-14 08:56] LABS: HEMATOCRIT 35.9 % (37-47); MEAN CELL VOLUME 86.7 fL (80-100); MEAN CORPUSCULAR HEMOGLOBIN 28.7 pg (25-34); MEAN CORPUSCULAR HGB CONC 33.1 g/dl (32-36); MEAN PLATELET VOLUME 9.2 fL (7.4-10.4); PLATELET COUNT 232 K/uL (130-400); RED BLOOD COUNT 4.14 M/uL (4.2-5.4); WHITE BLOOD COUNT 10.78 K/uL (4.8-10.8)
--- NOTE | 2017-02-14 09:24 | Clinical Documentation Query ---
DAVE Santoro : CLINICAL DOCUMENTATION QUERIES QUERY 1 OF 2 Patient is a 66 year old female with known DM admitted for evaluation and treatment of "AMS and hyperglycemia" in the setting of non-compliance and a "large meal". Anion gap acidosis on arrival. POC glucose > 700. 2+ ketones in urine. Serum pH mildly acidotic. Please clarify as clinically appropriate. In your clinical opinion is this patient being managed for: (x ) Type 2 diabetes mellitus with hyperosmolarity/HHNKS, ( ) DKA ( ) Not Agree ( ) Other explanation of clinical findings (Please Explain) ( ) Unable to determine (Please Define) ( ) Need to Discuss The medical record reflects the following clinical findings, treatment, and risk factors. Clinical Indicators: As above Treatment: IVF, IV insulin, serial chemistries Risk Factors: DM, non-compliance with medication regimen QUERY 2 OF 2 "AMS" is the hallmark symptom of encephalopathy. Patient notably hyperglycemia, hyponatremic, and acidotic on admission with previously mentioned ketonuria. Please clarify as clinically appropriate. Thank you. In your clinical opinion is this patient being managed for: ( ) Metabolic encephalopathy upon admission ( ) Not Agree ( ) Other explanation of clinical findings (Please Explain) ( ) Unable to determine (Please Define) ( ) Need to Discuss The medical record reflects the following clinical findings, treatment, and risk factors. Clinical Indicators: As above Treatment: IVF, IV insulin, serial chemistries Risk Factors: DM, noncompliance with therapeutic regimen Please clarify and document your clinical opinion in the progress notes and discharge summary. Terms such as "probable", "suspected", "likely", "questionable", "possible", or "still to be ruled out" are acceptable. IF IN AGREEMENT, YOU MUST DOCUMENT ABOVE DIAGNOSTIC STATEMENT IN DAILY PROGRESS NOTES AND DISCHARGE SUMMARY. This document is not part of the patient's record. Thank You, Gabriel Gooden, RN [phone]
[2017-02-14] MEDS: SODIUM CHLOR 0.45% + 20MEQ KCL 1,000 ML IV SCH (10:51)
[2017-02-14] MEDS ORDERED: INSULIN GLARGINE SOLOSTAR 100 UNITS/ML 3 ML PEN SC ONE (11:00)
--- NOTE | 2017-02-14 12:32 | Progress Note ---
Progress Note Date of Service Feb 14, 2017. Progress Note Type 2 diabetes mellitus with hyperosmolarity/and possible HHNKS, Possible Metabolic encephalopathy upon admission
[2017-02-14] MEDS ORDERED: POTASSIUM PHOS 3 MMOL/1 ML INFUSION IV ONE (13:45)
--- NOTE | 2017-02-14 13:49 | Hospitalist Progress Note ---
Hospitalist Progress Note Date of Service Feb 14, 2017. Subjective Pt evaluation today including: conversation w/ patient, physical exam, chart review, lab review, review of inpatient medication list Pain: None PO Intake: Eating PO diet, vomited during meal Voiding: no voiding problems The patient reports feeling well. She was able to eat breakfast and lunch, however she did have some vomiting. She denied any preceding nausea. Per nursing, there was not any food in the emesis, and it appears more regurgitation secondary to her reflux than vomit. The patient reports that she has not taken her Nexium at home for the last few days, and this can make her GERD very severe. The patient denies fevers, chills, sweats, chest pain, palpitations, claudication, cough, wheezing, shortness of breath, nausea, abdominal pain, dysuria, hematuria, urinary retention, paralysis, weakness, numbness and tingling. Additional Comments: See HPI for pertinent positives and negatives. All other systems reviewed and negative. Objective Vital Signs Date Time Temp Pulse Resp B/P (MAP) Pulse Ox O2 Delivery O2 Flow Rate FiO2 02/14/17 12:00 96 Room Air 02/14/17 11:43 36.7 84 20 126/80 (95) 96 02/14/17 08:00 98 Room Air 02/14/17 07:50 36.5 75 20 113/81 (92) 98 02/14/17 04:11 36.8 72 18 107/66 (80) 94 Room Air 02/14/17 04:00 Room Air 02/13/17 23:59 Room Air 02/13/17 23:40 37.0 71 17 139/73 (95) 95 Room Air 02/13/17 20:00 Room Air 02/13/17 19:17 37.1 82 18 110/63 (79) 94 Room Air 02/13/17 16:18 Room Air 02/13/17 15:38 36.7 88 18 112/68 (83) 97 Room Air 02/13/17 14:24 81 16 122/66 (84) 97 Room Air 02/13/17 13:36 81 18 138/73 99 Physical Exam Notes: General appearance: +Obese. Well-developed, well-nourished, no apparent distress Head: Normocephalic, atraumatic Eyes: Normal inspection, PERRL, EOMI ENT: Normal ENT inspection, hearing grossly normal, pharynx normal Neck: Supple, no JVD, trachea midline Respiratory/Chest: Lungs clear to auscultation, normal breath sounds, no respiratory distress Cardiovascular: Regular rate & rhythm, no gallop, no murmur Abdomen/GI: Normal bowel sounds, non-tender, soft Extremities/Musculoskeletal: Normal inspection, no calf tenderness, no pedal edema Neurological/Psych: Alert, normal mood/affect, oriented x 3 Skin: Normal color, warm/dry, no rash Laboratory Results Last 24 Hours Test 02/13/17 13:50 02/13/17 14:49 02/13/17 16:01 02/13/17 16:13 Bedside Glucose 342 mg/dl 323 mg/dl 337 mg/dl Venous Blood pH 7.39 Sodium Level 138 mmol/L Potassium Level 4.0 mmol/L Chloride Level 103 mmol/L Carbon Dioxide Level 27 mmol/L Anion Gap 8.0 mmol/L Blood Urea Nitrogen 17 mg/dl Creatinine 0.88 mg/dl Est Creatinine Clear Calc Drug Dose 69.5 ml/min Estimated GFR () 79.9 Estimated GFR (Non- 68.9 BUN/Creatinine Ratio 19.5 Random Glucose 247 mg/dl Calcium Level 9.4 mg/dl Phosphorus Level 2.9 mg/dl Magnesium Level 2.1 mg/dl Test 02/13/17 17:16 02/13/17 18:04 02/13/17 19:16 02/13/17 19:58 Bedside Glucose 169 mg/dl 150 mg/dl 160 mg/dl Venous Blood pH 7.39 Sodium Level 138 mmol/L Potassium Level 3.8 mmol/L Chloride Level 104 mmol/L Carbon Dioxide Level 28 mmol/L Anion Gap 6.0 mmol/L Blood Urea Nitrogen 15 mg/dl Creatinine 0.77 mg/dl Est Creatinine Clear Calc Drug Dose 79.4 ml/min Estimated GFR () 93.9 Estimated GFR (Non- 81.0 BUN/Creatinine Ratio 19.8 Random Glucose 164 mg/dl Calcium Level 9.0 mg/dl Phosphorus Level 3.2 mg/dl Magnesium Level 2.0 mg/dl Test 02/13/17 20:07 02/13/17 21:08 02/13/17 22:08 02/13/17 23:03 Bedside Glucose 154 mg/dl 143 mg/dl 151 mg/dl 137 mg/dl Test 02/13/17 23:52 02/14/17 00:09 02/14/17 00:57 02/14/17 02:03 Venous Blood pH 7.37 Sodium Level 139 mmol/L Potassium Level 3.8 mmol/L Chloride Level 104 mmol/L Carbon Dioxide Level 27 mmol/L Anion Gap 8.0 mmol/L Blood Urea Nitrogen 13 mg/dl Creatinine 0.72 mg/dl Est Creatinine Clear Calc Drug Dose 84.9 ml/min Estimated GFR () 101.9 Estimated GFR (Non- 87.9 BUN/Creatinine Ratio 18.5 Random Glucose 148 mg/dl Calcium Level 8.4 mg/dl Phosphorus Level 3.2 mg/dl Magnesium Level 1.9 mg/dl Bedside Glucose 163 mg/dl 197 mg/dl 190 mg/dl Test 02/14/17 03:57 02/14/17 04:09 02/14/17 06:12 02/14/17 07:47 Venous Blood pH 7.35 Sodium Level 139 mmol/L Potassium Level 4.1 mmol/L Chloride Level 106 mmol/L Carbon Dioxide Level 27 mmol/L Anion Gap 6.0 mmol/L Blood Urea Nitrogen 12 mg/dl Creatinine 0.90 mg/dl Est Creatinine Clear Calc Drug Dose 67.9 ml/min Estimated GFR () 77.8 Estimated GFR (Non- 67.1 BUN/Creatinine Ratio 13.3 Random Glucose 205 mg/dl Calcium Level 8.5 mg/dl Phosphorus Level 3.0 mg/dl Magnesium Level 1.8 mg/dl Bedside Glucose 217 mg/dl 288 mg/dl 232 mg/dl Test 02/14/17 07:55 02/14/17 08:00 02/14/17 09:07 02/14/17 10:06 White Blood Count 10.78 K/uL Red Blood Count 4.14 M/uL Hemoglobin 11.9 g/dL Hematocrit 35.9 % Mean Corpuscular Volume 86.7 fL Mean Corpuscular Hemoglobin 28.7 pg Mean Corpuscular Hemoglobin Concent 33.1 g/dl RDW Standard Deviation 42.5 fL RDW Coefficient of Variation 13.5 % Platelet Count 232 K/uL Mean Platelet Volume 9.2 fL Sodium Level 137 mmol/L Potassium Level 4.0 mmol/L Chloride Level 105 mmol/L Carbon Dioxide Level 25 mmol/L Anion Gap 7.0 mmol/L Blood Urea Nitrogen 10 mg/dl Creatinine 0.78 mg/dl Est Creatinine Clear Calc Drug Dose 78.4 ml/min Estimated GFR () 92.5 Estimated GFR (Non- 79.8 BUN/Creatinine Ratio 12.7 Random Glucose 230 mg/dl Calcium Level 8.7 mg/dl Phosphorus Level 2.3 mg/dl Magnesium Level 1.8 mg/dl Venous Blood pH 7.38 Bedside Glucose 231 mg/dl 241 mg/dl Test 02/14/17 11:29 Bedside Glucose 223 mg/dl Assessment and Plan 66 y/o female with a history of DM II with neuropathy, HLD, depression and GERD who presents with hyperglycemia. Hyperglycemia, HSS vs DKA, h/o DM II--improving. Likely secondary to eating large meal and not taking her Lantus/Humalog -Admitted to telemetry. No acute events overnight. Pt in sinus rhythm with HR in 70s. -Pharmacy consulted for glycemic control, on [facility] protocol -Discussed with pharmacy. Start diet and will wean off insulin drip -Pt receiving Lantus and ISS per protocol. Insulin drip scheduled to stop at 1700 -IVF changed to 1/2NSS + 20 mEq KCl at 100 cc/hr -Elevated beta hydroxybutyric acid on admission -Anion gap 13 on admission, now WNL -UA positive for ketones -Non acidotic, bicarb WNL -BSGs improved, in 200 range -HgbA1c 10.1 on 02/13 -Monitor electrolytes, replace prn. Potassium and magnesium WNL. Phosphorus 2.3, given k phos 15 mmol IV x1 -Pt seen by perioperative educator Hyponatremia--resolved -Likely secondary to hyperglycemia Diabetic neuropathy--stable -Continue gabapentin 300 mg PO BID HLD -Continue simvastatin 20 mg PO hs Depression -Continue Effexor 150 mg PO qd GERD -Nexium converted to Protonix DVT prophylaxis -SCDs Code Status -Level I, FULL RESUSCITATION STATUS
[2017-02-14] MEDS ORDERED: POTASSIUM PHOSPHATE INJ 15 MMOL in SODIUM CHLORIDE 0.9% 250ML 250 ML IV ONE (14:00)
--- NOTE | 2017-02-14 14:05 | Pharmacy Progress Note ---
Glycemic Control Progress Note Date of Service Feb 14, 2017. Scope Glycemic Pharmacist consulted for glycemic control to write orders per [facility] inpatient glycemic control protocol. Objective Accuchecks BSG (last 24hrs): Test 02/13/17 14:49 02/13/17 16:01 02/13/17 16:13 02/13/17 17:16 Bedside Glucose 323 mg/dl (70-90) 337 mg/dl (70-90) 169 mg/dl (70-90) Random Glucose 247 mg/dl (70-99) Test 02/13/17 18:04 02/13/17 19:16 02/13/17 19:58 02/13/17 20:07 Bedside Glucose 150 mg/dl (70-90) 160 mg/dl (70-90) 154 mg/dl (70-90) Random Glucose 164 mg/dl (70-99) Test 02/13/17 21:08 02/13/17 22:08 02/13/17 23:03 02/13/17 23:52 Bedside Glucose 143 mg/dl (70-90) 151 mg/dl (70-90) 137 mg/dl (70-90) Random Glucose 148 mg/dl (70-99) Test 02/14/17 00:09 02/14/17 00:57 02/14/17 02:03 02/14/17 03:57 Bedside Glucose 163 mg/dl (70-90) 197 mg/dl (70-90) 190 mg/dl (70-90) Random Glucose 205 mg/dl (70-99) Test 02/14/17 04:09 02/14/17 06:12 02/14/17 07:47 02/14/17 07:55 Bedside Glucose 217 mg/dl (70-90) 288 mg/dl (70-90) 232 mg/dl (70-90) Random Glucose 230 mg/dl (70-99) Test 02/14/17 09:07 02/14/17 10:06 02/14/17 11:29 Bedside Glucose 231 mg/dl (70-90) 241 mg/dl (70-90) 223 mg/dl (70-90) HbA1c: Test 02/13/17 10:34 Hemoglobin A1c 10.1 % (4.5-5.6) H Recent Pertinent Medications The patient is currently receiving: * Basal insulin: Lantus 0 units every 24 hours * Correctional Insulin: Novolog Correction per scale ACHS Goal Range: Low 150 mg/dL - High 250 mg/dL Correction Factor: -- mg/dL/unit * Prandial insulin: Per carb ratio of 1 unit per (per insulin infusion) grams CHO consumed * Insulin infusion: currently running at 2.3-2.8 units/hr Outpatient Anti-Diabetic Meds Lantus 70 units in the evening and Humalog with meals....patient non- compliant with breakfast dose and appears to miss many doses Assessment & Plan ASSESSMENT: * See progress note from 02/13/17 for more background info, in short: * Pt receiving SQ basal bolus insulin regimen for hyperglycemia secondary to baseline DM (outpatient regimen on hold), stress (currently on insulin infusion for HHS), and now just started on type 2 diabetic diet * Patient is currently receiving an average of 55-65 units of insulin per day * 0 units of basal insulin * 0 units of prandial/correctional insulin * BSGs ranging 150 - >600 on admission mg/dl over the past 24hrs * Changes needed to insulin regimen: * AM Fasting BSG = 205 mg/dl. This is slightly above goal range for patient based on inpatient targets and co-morbidities. Insulin infusion continued until glycemic pharmacist spoke with hospitalist. Diet started for patient and dextrose removed from IV fluids. For first Lantus dose, 24 hours of Lantus given... as the patient missed her Lantus dose for 2 days a slightly higher dose was given. This correlated roughly to weight-based stress of 3. A scale based upon weight-based values was added for evening. * Post-prandial BSGs cannot be evaluated. Started weight-based stress of 3 as patient will be insulin resistant with insulin infusion stopping. Overnight accuchecks added to ensure 24 hours coverage. * Total daily dose = ~100 units. Estimate 1 unit/kg .... this is a 20-25% reduction from home dose. PLAN FOR INPATIENT GLYCEMIC CONTROL: * Basal insulin * Lantus 55 units SQ x 1 then Lantus 9-23 units SQ BID * Bolus insulin * NovoLog per scale ACHS or Q6hrs while NPO * Goal Range: Low 110 mg/dL - High 140 mg/dL * Correction Factor: 15 mg/dL/unit * Nutritional / Prandial insulin per carb ratio of 1 unit per 6 grams CHO consumed * Please note that the plan above was derived based on current level of insulin resistance and hospital stress. These recommendations are appropriate for inpatient admission only. Plan of care upon discharge will need to be reassessed to avoid potential outpatient hypo/hyperglycemia. Thank you.
[2017-02-14] MEDS: INSULIN REGULAR 250 UNITS in SODIUM CHLORIDE 0.9% 250ML 250 ML IV SCH (15:00)
[2017-02-14] MEDS: CHOLECALCIFEROL 1000 INTER.UNIT TAB PO SCH (16:48)
[2017-02-14] MEDS ORDERED: DC IV INSULIN INFUSION ONE (17:00)
[2017-02-14] MEDS ORDERED: INSULIN GLARGINE SOLOSTAR 100 UNITS/ML 3 ML PEN SC SCH (21:00)
[2017-02-14] MEDS: SIMVASTATIN 20 MG TAB PO SCH (21:00)
[2017-02-15] VITALS (8 sets, daily range): BP systolic 118–126; BP diastolic 64–79; PULSE 73–80; TEMP 36.7–37.6; O2SAT 93–97
[2017-02-15] MEDS: INSULIN ASPART 100 UNITS/ML 3 ML PEN SC SCH ×4 (00:02→11:44)
[2017-02-15 06:04] LABS: HEMATOCRIT 36.4 % (37-47); MEAN CELL VOLUME 88.1 fL (80-100); MEAN CORPUSCULAR HEMOGLOBIN 28.3 pg (25-34); MEAN CORPUSCULAR HGB CONC 32.1 g/dl (32-36); MEAN PLATELET VOLUME 9.1 fL (7.4-10.4); PLATELET COUNT 207 K/uL (130-400); RED BLOOD COUNT 4.13 M/uL (4.2-5.4); WHITE BLOOD COUNT 7.35 K/uL (4.8-10.8)
[2017-02-15 06:32] LABS: BUN/CREATININE RATIO 11.4 (10-20); CALCIUM 8.8 mg/dl (8.5-10.1); CREATININE 0.84 mg/dl (0.60-1.20); MAGNESIUM 1.9 mg/dl (1.8-2.4); POTASSIUM 4.2 mmol/L (3.5-5.1)
[2017-02-15 06:47] LABS: PHOSPHORUS 3.3 mg/dl (2.5-4.9)
[2017-02-15] MEDS: SODIUM CHLOR 0.45% + 20MEQ KCL 1,000 ML IV SCH ×2 (07:40)
[2017-02-15] MEDS: GABAPENTIN 300 MG CAP PO SCH (07:41)
[2017-02-15] MEDS: PANTOprazole SOD 40 MG TAB PO SCH (07:41)
[2017-02-15] MEDS: VENLAFAXINE HCL XR 150 MG CAPXR PO SCH (07:41)
[2017-02-15] MEDS ORDERED: INSULIN GLARGINE SOLOSTAR 100 UNITS/ML 3 ML PEN SC SCH (09:00)
[2017-02-15] MEDS ORDERED: INSDGIPEN SC (11:02)
--- NOTE | 2017-02-15 11:09 | Discharge Instructions ---
Discharge Instructions Date of Service Feb 15, 2017. Admission Reason for Admission: Altered Mental Status, Hyperglycemia Discharge Discharge Diagnosis / Problem: Hyperglycemia Discharge Goals Goal(s): Improve disease control, Therapeutic intervention Activity Recommendations Activity Limitations: resume your previous activity Exercise/Sports Limitations: gradually increase as tolerated Shower/Bathe: no limitations Driving or Machine Use: no limitations . Instructions / Follow-Up Instructions / Follow-Up You were admitted with hyperglycemia (very elevated glucose) due to missing your usual dose of Lantus. You were treated with an insulin drip and then eventually placed back on your Lantus. You received Lantus 30 units this morning, so ONLY TAKE LANTUS 40 UNITS TONIGHT , THEN RESUME YOUR USUAL LANTUS 70 UNITS WITH DINNER TOMORROW EVENING. You should be checking your glucose before each meal as well as every night at bedtime around 10 PM. Please call your Primary Care Doctor or your Die Attacher if you are experiencing any further high glucose readings (>300) or low glucose readings ( less than 70). If you have a glucose that is less then 70, please take a glucose tablet which can be bought at the drug store. Otherwise, you can drink 4-6 oz of orange juice. Please follow up with your PCP within 1-2 weeks and with Endocrinology as scheduled in February. Current Hospital Diet Patient's current hospital diet: Diabetes Type 2 Diet, AHA Diet (Heart Healthy) Discharge Diet Recommended Diet: Diabetes Type 2 Diet Pending Studies Studies pending at discharge: no Laboratory Results Hemoglobin A1c Test 02/13/17 10:34 Range/Units Estimated Average Glucose 243 mg/dl Hemoglobin A1c 10.1 H 4.5-5.6 % Medical Emergencies . Who to Call and When: Medical Emergencies: If at any time you feel your situation is an emergency, please call 911 immediately. . Non-Emergent Contact Non-Emergency issues call your: Primary Care Provider, Specialist ( Die Attacher) Call Non-Emergent contact if: you have any medication questions Your glucose is consistently > 300, or consistently < 70, or for any other acute concerns. . . "Provider Documentation" section prepared by Lu Herrera. . VTE Core Measure Inpt VTE Proph given/why not?: SCD's
--- NOTE | 2017-02-15 11:15 | Discharge Summary ---
Discharge Summary Date of Service Feb 15, 2017. 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 HLD Depression GERD Pseudohyponatremia Diabetic neuropathy Obesity, BMI 38 Immunizations: Have You Had Influenza Vaccine: No History of Tetanus Vaccine?: Unknown History of Pneumococcal: Unknown History of Hepatitis B Vaccine: Unknown Procedures: None Consultations: None Medication Reconciliation Changed Medications: Insulin Glargine (Lantus Solostar) 100 Unit/Ml Inj 70 UNIT SC QPM for 30 Days (Changed from: 70 ) TAKE LANTUS 40 UNITS THIS EVENING ONLY, THEN START BACK ON 70 UNITS WITH DINNER ON 02/16/17 Continued Medications: Cholecalciferol (Vitamin D3) 2,000 Unit Cap 1 CAP PO 1700 Esomeprazole Magnesium (Nexium) 40 Mg Capcr 40 MG PO DAILY Gabapentin (Neurontin) 300 Mg Cap 300 MG PO BID Insulin Lispro (Human) (Humalog Kwikpen) 100 Unit/Ml Inj 20 UNITS SC QAM Insulin Lispro (Human) (Humalog Kwikpen) 100 Unit/Ml Inj 15 UNITS SC W/LUNCH Insulin Lispro (Human) (Humalog Kwikpen) 100 Unit/Ml Inj 28 UNITS SC W/SUPPER Metformin Hcl (Glucophage) 1,000 Mg Tab 1000 MG PO BID Simvastatin (Zocor) 20 Mg Tab 20 MG PO QPM Venlafaxine Hcl (Venlafaxine Hcl Er) 150 Mg Tab 1 TAB PO DAILY Discharge Exam Pt feeling very well, no concerns. Glucose much improved. Discussed importance of routinely checking glucose qac and qhs Review of Systems: Constitutional: No fever Eyes: No problem reported ENT: No problem reported Respiratory: No shortness of breath Cardiovascular: No chest pain Abdomen: No nausea, No vomiting, No problem reported Musculoskeletal: No problem reported Genitourinary - Female: No problem reported Neurologic: No problem reported Psychiatric: No problem reported Endocrine: No problem reported Hematologic / Lymphatic: No problem reported Integumentary: No problem reported Physical Exam: General Appearance: WD/WN, no apparent distress, + obese Eyes: normal inspection, sclerae normal ENT: hearing grossly normal Neck: trachea midline Respiratory/Chest: lungs clear, normal breath sounds, no respiratory distress, no accessory muscle use Cardiovascular: regular rate, rhythm, no edema, no gallop, no murmur Abdomen / GI: normal bowel sounds, non tender, soft, no organomegaly, no pulsatile mass Extremities: normal inspection, no calf tenderness, normal capillary refill , no pedal edema Neurologic/Psychiatric: alert, normal mood/affect, oriented x 3 Skin: normal color, warm/dry, no rash Hospital Course 66 y/o female with a history of DM II with neuropathy, HLD, depression and GERD who presents with hyperglycemia in the 600s after skipping her evening Lantus dose and eating a large meal at [employer]. She states she just forgot to take it. Hyperglycemia, HSS, h/o DM II--Resolved. Was on insulin gtt and transitioned back to Lantus and Humalog for home use. Likely secondary to eating large meal and not taking her Lantus/Humalog -Admitted to telemetry. Pt in sinus rhythm with HR in 70s. treated with insulin gtt and IVFs, close monitoring of electrolytes -Elevated beta hydroxybutyric acid on admission -Anion gap 13 on admission, now WNL -UA positive for ketones -Non acidotic, bicarb WNL -BSGs improved, in 100-200 range -HgbA1c 10.1 on 02/13-uncontrolled- f/u with Endocrine as planned in 2 weeks -Monitor electrolytes, replaced prn. Potassium and magnesium WNL. Phosphorus 2.3, given k phos 15 mmol IV x1 -Pt seen by patient educator Pseudohyponatremia--resolved -secondary to hyperglycemia Diabetic neuropathy--stable -Continue gabapentin 300 mg PO BID HLD -Continue simvastatin 20 mg PO hs Depression -Continue Effexor 150 mg PO qd GERD -Nexium Stable for discharge to home Total Time Spent: Greater than 30 minutes This includes examination of the patient, discharge planning, medication reconciliation, and communication with other providers. Discharge Instructions Please refer to the electronic Patient Visit Report (Discharge Instructions) for additional information. Follow-Up PCP within 1-2 weeks Endocrinology as planned in 2 weeks Additional Copies To Dewanye Kay M.D.; Kelly Junior.[email or web address]
== END 2017-02-15 12:55 | disposition home or self-care (01) | DRG 637 ==
LOC: C.EDB 10:14 → EDBD 10:14 → C.2E 12:50 → ENRESERV 13:33 → C.2E 14:43 → UNDOADMIN 14:43
PROVIDERS: ADMIT Family Medicine; ATTEND Family Medicine
DX: E11.65 Type 2 diabetes mellitus with hyperglycemia (principal); G93.41 Metabolic encephalopathy; E87.1 Hypo-osmolality and hyponatremia; E78.5 Hyperlipidemia, unspecified; F32.9 Major depressive disorder, single episode, unspecified; E11.40 Type 2 diabetes mellitus with diabetic neuropathy, unspecified; Z79.4 Long term (current) use of insulin; Z79.84 Long term (current) use of oral hypoglycemic drugs; Z79.899 Other long term (current) drug therapy

== ENCOUNTER → 2017-02-26 | Outpatient (CLI) | payer OTHER, MEDICARE ==
[2017-02-26 12:18] LABS: ESTIMATED AVERAGE GLUCOSE 232 mg/dl; HA1C FLAG Normal (Normal)
== END | disposition home or self-care (01) ==
LOC: C.LAB 11:00
PROVIDERS: ATTEND Nurse Practitioner Family
DX: E11.65 Type 2 diabetes mellitus with hyperglycemia (principal)

== ENCOUNTER → 2017-05-01 | Outpatient (CLI) | payer OTHER, MEDICARE ==
[2017-05-02 06:50] LABS: HEMOGLOBIN A1C 9.2 % (4.5-5.6)
== END | disposition home or self-care (01) ==
LOC: C.LABBC 12:51
PROVIDERS: ATTEND Nurse Practitioner Family
DX: E11.65 Type 2 diabetes mellitus with hyperglycemia (principal)

== ENCOUNTER → 2017-06-06 | Outpatient (CLI) | payer OTHER, MEDICARE ==
[2017-06-06 13:53] LABS: ALBUMIN 3.5 gm/dl (3.4-5.0); ALT/SGPT 31 U/L (12-78); BLOOD UREA NITROGEN 16 mg/dl (7-18); CALCIUM 9.8 mg/dl (8.5-10.1); CARBON DIOXIDE 27 mmol/L (21-32); CREATININE 0.81 mg/dl (0.60-1.20); GLUCOSE 173 mg/dl (70-99); POTASSIUM 4.4 mmol/L (3.5-5.1); SODIUM 137 mmol/L (136-145)
[2017-06-06 13:56] LABS: ALKALINE PHOSPHATASE 125 U/L (45-117); AST/SGOT 17 U/L (15-37); TOTAL PROTEIN 6.8 gm/dl (6.4-8.2)
== END | disposition home or self-care (01) ==
LOC: C.LABBC 11:09
PROVIDERS: ATTEND Internal Medicine Geriatric Medicine
DX: E78.5 Hyperlipidemia, unspecified (principal); Z68.39 Body mass index [BMI] 39.0-39.9, adult; E11.65 Type 2 diabetes mellitus with hyperglycemia

== ENCOUNTER → 2017-07-12 | Outpatient (CLI) | payer OTHER, MEDICARE ==
--- NOTE | 2017-07-12 17:00 | DIAGNOSTIC IMAGING REPORT ---
L KNEE 1 OR 2 VIEWS ROUTINE HISTORY: 66 years-old Female M25.562 Left knee [id number] acute left knee pain COMPARISON: None available TECHNIQUE: 2 views of the left knee FINDINGS: At least moderate joint space narrowing with marginal spurring involves the medial and patellofemoral compartments. 9 mm lucency with mild cortical undulation involves the medial femoral condyle. Mild joint space narrowing with marginal spurring seen within the lateral compartment. Small joint effusion. No acute fracture or dislocation.10 mm linear density adjacent to the medial femoral condyle may reflect dystrophic calcification of the MCL. IMPRESSION: 1. No acute fracture or dislocation. 2. Tricompartmental osteoarthritis with probable osteochondral defect of the medial femoral condyle. The above report was generated using voice recognition software. It may contain grammatical, syntax or spelling errors. Electronically signed by: Steven Hylton M.D. 07/12/2017 4:59 PM Dictated Date/Time: 07/12/2017 4:55 PM
== END | disposition home or self-care (01) ==
LOC: C.RADBC 16:14
PROVIDERS: ATTEND Internal Medicine Geriatric Medicine
DX: M25.562 Pain in left knee (principal); M17.12 Unilateral primary osteoarthritis, left knee

== ENCOUNTER → 2017-07-13 | Outpatient (CLI) | payer OTHER, MEDICARE ==
--- NOTE | 2017-07-13 08:35 | DIAGNOSTIC IMAGING REPORT ---
ABDOMEN LIMITED (US) CLINICAL HISTORY: 66 years-old Female presenting with ELEVATED ALKALINE PHOPHATASE LEVEL. TECHNIQUE: Real-time grayscale and limited color Doppler ultrasound imaging of the abdomen limited to the right upper quadrant was performed. COMPARISON: None. FINDINGS: Pancreas: Visualized portions of the pancreatic head and body normal. Liver: Normal echogenicity and echotexture. No sonographic evidence of hepatic mass. Main portal vein patent with normal directional flow. Biliary: No intrahepatic biliary ductal dilatation. Common bile duct measures up to 4 mm in diameter. Gallbladder: Decompressed. The gallbladder is not well evaluated. Gallbladder sludge or gallstones are difficult to exclude. Right kidney: Normal in appearance. No hydronephrosis. Ascites: None. Other: None. IMPRESSION: Decompressed gallbladder, which is poorly evaluated. If there is continuing clinical concern, MRCP could be considered. No gross sonographic evidence of acute right upper quadrant pathology. Electronically signed by: Ric Darling M.D. 07/13/2017 8:33 AM Dictated Date/Time: 07/13/2017 8:31 AM
== END | disposition home or self-care (01) ==
LOC: C.ULTRBC 07:56
PROVIDERS: ATTEND Internal Medicine Geriatric Medicine
DX: R74.8 Abnormal levels of other serum enzymes (principal)

== ENCOUNTER → 2017-07-23 | Outpatient (CLI) | payer OTHER, MEDICARE ==
--- NOTE | 2017-07-24 12:46 | MAMMOGRAPHY REPORT ---
BILATERAL DIGITAL SCREENING MAMMOGRAM TOMOSYNTHESIS WITH CAD: 07/23/2017 CLINICAL HISTORY: Routine screening. Patient has no complaints. TECHNIQUE: Breast tomosynthesis in addition to standard 2D mammography was performed. Current study was also evaluated with a Computer Aided Detection (CAD) system. COMPARISON: Comparison is made to exams dated: 02/18/2008 mammogram - [facility], 08/04/2008, 08/17/2009 mammogram, 08/20/2012 mammogram, 09/10/2013 mammogram, and 07/02/2015 mammogram - [facility]. BREAST COMPOSITION: There are scattered areas of fibroglandular density in both breasts. FINDINGS: Benign circumscribed masses in each upper outer quadrant are stable in size and appearance dating back to at least 08/04/2008, therefore considered benign. There is expected architectural dist ortion in the superior left breast at the site of prior excision. A few benign-appearing calcificati ons bilaterally. No suspicious mass, architectural distortion or cluster of suspicious microcalcific ations is seen. IMPRESSION: ACR BI-RADS CATEGORY 1: NEGATIVE There is no mammographic evidence of malignancy. A 1 year screening mammogram is recommended. The pa tient will receive written notification of the results. Approximately 10% of breast cancers are not detected with mammography. A negative mammographic report should not delay biopsy if a clinically suggestive mass is present. Bailey Moran M.D. ay/:07/23/2017 16:40:57 Engine Maintenance Mechanic: Jessica MEJIA)([place]), [facility] letter sent: Normal 1/2 BI-RADS Code: ACR BI-RADS Category 1: Negative
== END | disposition home or self-care (01) ==
LOC: C.MAMM 14:38
PROVIDERS: ATTEND Internal Medicine Geriatric Medicine
DX: Z12.31 Encounter for screening mammogram for malignant neoplasm of breast (principal)

== ENCOUNTER → 2017-07-24 | Outpatient (CLI) | payer OTHER, MEDICARE ==
--- NOTE | 2017-07-24 18:01 | DIAGNOSTIC IMAGING REPORT ---
MRCP HISTORY: 67 years-old Female R93.8 Abnormal finding on [id number] elevated alkaline phosphatase level. Decompressed gallbladder seen on comparison ultrasound COMPARISON: Abdominal right upper quadrant ultrasound 07/13/2017 TECHNIQUE: MRCP without contrast was obtained according to institutional protocol FINDINGS: Large [id number] plant manager localizer images demonstrate sigmoidal scoliosis of the thoracolumbar spine. Patient obesity is noted. There are suggested renal sinus cysts noted bilaterally, right greater than left. 10 x 9 x 11 mm cystic lesion of the proximal pancreatic body appears to communicate with the main pancreatic duct. No pancreatic ductal dilation. No evidence of pancreatic divisum. Common bile duct is normal measuring 5 mm. No filling defects identified within the common bile duct. Multiple gallstones are seen within a partially decompressed gallbladder lumen. No evidence of gallbladder wall thickening or pericholecystic fluid. No intrahepatic biliary ductal dilation. No focal strictures or biliary filling defects. IMPRESSION: 1. Cholelithiasis without evidence of acute cholecystitis. 2. No biliary ductal dilation or biliary filling defects. 3. 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 The above report was generated using voice recognition software. It may contain grammatical, syntax or spelling errors. Electronically signed by: Steven Hylton M.D. 07/24/2017 6:00 PM Dictated Date/Time: 07/24/2017 5:50 PM
== END | disposition home or self-care (01) ==
LOC: C.MRIBC 15:15
PROVIDERS: ATTEND Internal Medicine Geriatric Medicine
DX: K80.20 Calculus of gallbladder without cholecystitis without obstruction (principal); K86.9 Disease of pancreas, unspecified; R93.8 Abnormal findings on diagnostic imaging of other specified body structures

== ENCOUNTER 2017-10-31 16:30 | Emergency (ER) | payer OTHER, MEDICARE ==
[~2017-10-31] VITALS: Ht 160 cm; Wt 92.0 kg
[~2017-10-31 16:30] MED LIST changes: -CHOL2000 PO; -INSU100I2 SC
[2017-10-31 16:32] VITALS: TEMP 36.6; Ht 160 cm; Wt 92.0 kg
[2017-10-31] MEDS ORDERED: ROSU20TA PO (17:22)
[2017-10-31] MEDS ORDERED: INSU100I2 SC ×3 (17:26)
--- NOTE | 2017-10-31 17:38 | DIAGNOSTIC IMAGING REPORT ---
HEAD WITHOUT CONTRAST (CT) CT DOSE: 1807.37 mGy.cm HISTORY: Trauma fall, head and neck pain TECHNIQUE: Multiaxial CT images of the head were performed without the use of intravenous contrast. A dose lowering technique was utilized adhering to the principles of ALARA. Comparison: 03/24/2014 Findings: The paranasal sinuses and mastoid air cells are clear. The calvarium and skull base are intact. The ventricles and sulci are within normal limits. There is no mass, hematoma, midline shift, or acute infarct. Impression: No acute intracranial abnormality. The above report was generated using voice recognition software. It may contain grammatical, syntax or spelling errors. Electronically signed by: Tim Piper M.D. 10/31/2017 5:36 PM Dictated Date/Time: 10/31/2017 5:35 PM
--- NOTE | 2017-10-31 17:40 | DIAGNOSTIC IMAGING REPORT ---
CERVICAL SPINE W/O CT DOSE: HISTORY: Trauma fall, head and neck pain TECHNIQUE: Multiaxial CT images of the cervical spine were performed and reformatted in the sagittal and coronal plane without the use of contrast. A dose lowering technique was utilized adhering to the principles of ALARA. COMPARISON: None. FINDINGS: No fractures. No subluxation. Prevertebral soft tissues and the C1-C2 interval are intact. No pneumothorax. Considerable degenerative disc changes throughout. IMPRESSION: No fractures within the cervical spine. Considerable degenerative change. The above report was generated using voice recognition software. It may contain grammatical, syntax or spelling errors. Electronically signed by: Tim Piper M.D. 10/31/2017 5:39 PM Dictated Date/Time: 10/31/2017 5:37 PM
[2017-10-31] MEDS ORDERED: ACETAMINOPHEN 500 MG TAB PO STA (18:21)
--- NOTE | 2017-10-31 19:03 | DIAGNOSTIC IMAGING REPORT ---
SACRUM COCCYX MIN 2 VIEWS CLINICAL HISTORY: low back pain, fall trauma. Pain. COMPARISON STUDY: No previous studies for comparison. FINDINGS: Nondisplaced cortical fracture sacrococcygeal junction. No additional acute abnormality. Sacral foramina are symmetric. IMPRESSION: Nondisplaced cortical fracture sacrococcygeal junction. The above report was generated using voice recognition software. It may contain grammatical, syntax or spelling errors. Electronically signed by: Tim Piper M.D. 10/31/2017 7:00 PM Dictated Date/Time: 10/31/2017 6:59 PM
--- NOTE | 2017-10-31 19:04 | DIAGNOSTIC IMAGING REPORT ---
L-SPINE MIN 4 VIEWS ROUTINE HISTORY: Pain. Trauma. low back pain, fall COMPARISON: None. FINDINGS: There is no fracture. Mild rotational scoliosis. Moderate degenerative disc change throughout. No evidence for compression deformity. IMPRESSION: Degenerative change. No acute process. The above report was generated using voice recognition software. It may contain grammatical, syntax or spelling errors. Electronically signed by: Tim Piper M.D. 10/31/2017 7:01 PM Dictated Date/Time: 10/31/2017 7:00 PM
--- NOTE | 2017-10-31 19:29 | EMERGENCY ROOM VISIT NOTE ---
ED Visit Note First contact with patient: 16:43 This Patient was discussed with the physician healthcare administrative assistant, Fabiola Farfan PA-C. The pertinent historical and physical exam findings were confirmed. I agree with the studies ordered and with the interpretations of these studies. I agree with the disposition and care plan.
[2017-10-31] MEDS ORDERED: NORCO 5/325MG HOME PACK PO ONE (19:30)
[2017-10-31] MEDS ORDERED: HYDR-5688 PO (19:32)
--- NOTE | 2017-10-31 19:35 | EMERGENCY ROOM VISIT NOTE ---
History First contact with patient: 16:43 Chief Complaint: FALL Stated Complaint: FALL History of Present Illness The patient is a 67 year old female who presents to the Emergency Room with complaints of a fall which occurred just prior to arrival. The patient states that she was looking in her car for her phone when she backed up, tripped and fell into the car mirror. She then fell backward onto her head and back. She does report a history of back trouble, but states she is having increased pain in her low back and tailbone since the injury. The pain is worse in the left buttock and back. She rates the discomfort a 9/10. She has not taken any medication for pain. She denies any loss of consciousness, significant headache , nausea/vomiting, numbness or weakness. Review of Systems A complete 6 point review of systems was reviewed with the patient with pertinent positives and negatives as per history of present illness. All else were negative. Past Medical/Surgical History Medical Problems: (1) Altered mental status (2) Gastroparesis (3) Major Depressive Disorder, Single Episode, Unspecified (4) Reflux Esophagitis (5) Type 2 Diabetes Mellitus Without Complications Surgical Problems: (1) History of right knee joint replacement Social History Problems: (1) Radiculopathy, Lumbar Region Family History FH: cancer Social History Smoking Status: Never Smoker Alcohol Use: occasionally Drug Use: none Marital Status: Occupation Status: disabled Current/Historical Medications Scheduled Docusate Sodium (Colace), 1 CAP PO BID Esomeprazole Magnesium (Nexium), 40 MG PO DAILY Gabapentin (Neurontin), 300 MG PO TID Insulin Glargine (Lantus Solostar), 48 UNITS SC W/SUPPER Insulin Lispro (Human) (Humalog Kwikpen), 17 UNITS SC W/BREAKFAST Insulin Lispro (Human) (Humalog Kwikpen), 12 UNITS SC W/LUNCH Insulin Lispro (Human) (Humalog Kwikpen), 17 UNITS SC W/SUPPER Metformin Hcl (Glucophage), 1,000 MG PO BID Rosuvastatin Calcium (Crestor), 20 MG PO DAILY Venlafaxine Hcl (Venlafaxine Hcl Er), 150 MG PO DAILY Scheduled PRN Hydrocodone/Acetaminophen 5MG/325MG (Elsah 5MG/325MG), 1 TABLET PO Q4H PRN for Pain Physical Exam Vital Signs Date Time Temp Pulse Resp B/P (MAP) Pulse Ox O2 Delivery O2 Flow Rate FiO2 10/31/17 19:47 93 16 98/71 100 Room Air 10/31/17 16:32 36.6 102 20 122/70 97 Room Air Physical Exam VITALS: Vitals are noted on the nurse's note and reviewed by myself. Vital signs stable. GENERAL: This is a 67-year-old female, in no acute distress, nondiaphoretic, well-developed well-nourished. SKIN: The skin was without rashes, erythema, edema, or bruising. HEAD: Normocephalic atraumatic. EARS: External auditory canals clear, tympanic membranes pearly quiroga without erythema or effusion bilaterally. EYES: Pupils equal round and reactive to light and accommodation. Extraocular movements intact. MOUTH: Mucous membranes moist. NECK: Supple without nuchal rigidity. Cervical spine is nontender. HEART: Regular rate and rhythm without murmurs gallops or rubs. LUNGS: Clear to auscultation bilaterally without wheezes, rales or rhonchi. MUSCULOSKELETAL: No deformities. There is tenderness to palpation of the left lumbar region and the sacrum/coccyx. NEURO: Patient was alert and oriented to person place and time. Medical Decision & Procedures ER Provider Diagnostic Interpretation: HEAD WITHOUT CONTRAST (CT) Findings: The paranasal sinuses and mastoid air cells are clear. The calvarium and skull base are intact. The ventricles and sulci are within normal limits. There is no mass, hematoma, midline shift, or acute infarct. Impression: No acute intracranial abnormality. CERVICAL SPINE W/O FINDINGS: No fractures. No subluxation. Prevertebral soft tissues and the C1-C2 interval are intact. No pneumothorax. Considerable degenerative disc changes throughout. IMPRESSION: No fractures within the cervical spine. Considerable degenerative change. L-SPINE MIN 4 VIEWS ROUTINE FINDINGS: There is no fracture. Mild rotational scoliosis. Moderate degenerative disc change throughout. No evidence for compression deformity. IMPRESSION: Degenerative change. No acute process. SACRUM COCCYX MIN 2 VIEWS FINDINGS: Nondisplaced cortical fracture sacrococcygeal junction. No additional acute abnormality. Sacral foramina are symmetric. IMPRESSION: Nondisplaced cortical fracture sacrococcygeal junction. Medications Administered Medications (Trade) Dose Ordered Sig/Manjeet Route Start Time Stop Time Status Last Admin Dose Admin Acetaminophen (Tylenol Tab) 1,000 mg NOW STAT PO 10/31/17 18:21 10/31/17 18:22 DC 10/31/17 18:28 1,000 MG Acetaminophen/ Hydrocodone Bitart (Elsah 5/325mg Home Pack) 1 homepack UD ONCE PO 10/31/17 19:30 10/31/17 19:31 DC 10/31/17 20:07 1 HOMEPACK Medical Decision Differential diagnosis includes fracture, contusion, sprain, closed head injury , intracranial bleed, among others. The patient was evaluated as above. Imaging studies were performed and read by radiology as above. The patient did sustain a fracture of the coccyx. She was given a home pack and prescription for pain medication. She was advised to follow-up with her primary care provider. She verbalized understanding of my assessment and treatment plan and was discharged home in good condition. The patient was independently evaluated by Dr. Gutierrez, ED attending physician, who agreed with my assessment and treatment plan. [place] Drug Monitoring Program Search Results: patient reviewed within database, no issues identified Head Trauma GCS Score: 15 Medication Reconcilliation Current Medication List: was personally reviewed by nm Blood Pressure Screening Patient's blood pressure: Normal blood pressure Impression Primary Impression: Fracture of coccyx Departure Information Dispostion Home / Self-Care Condition GOOD Prescriptions Docusate Sodium (COLACE) 100 Mg Cap 1 CAP PO BID for 5 Days, #10 CAP Prov: Fabiola Farfan PA-C 10/31/17 Hydrocodone/Acetaminophen 5MG/325MG (Elsah 5MG/325MG) Tab 1 TABLET PO Q4H Y for Pain, #15 TAB For Initial Treatment Prov: Fabiola Farfan PA-C 10/31/17 Referrals Dewayne Kay M.D. (PCP) Patient Instructions My [facility] Additional Instructions You have been treated in the Emergency Department for Back Pain. You have received pain medicine in the emergency department which impairs your ability to operate a vehicle. It is illegal for you to drive after receiving these medicines. You have been prescribed Elsah to be used for pain control. This is a narcotic medication. You cannot drive or consume alcohol while on this medicine. This medicine should only be used for pain that cannot be controlled with over-the- counter pain medicines. For pain control, you can use the following [id number] medicines (if >12 yo): - Regular strength (325mg/tab) Tylenol (acetaminophen) 2 tabs every 4-6 hours as needed. Do not exceed 12 tablets in a 24 hour period. Avoid taking more than 4 grams (4000 mg) of Tylenol per day. This includes any other sources of acetaminophen you may take on a regular basis. - Regular strength (200 mg/tab) Advil (ibuprofen) 1-2 tabs every 4-6 hours as needed. Do not exceed a dose of 3200 mg per day. Follow-up with your primary care provider within 1 week for a recheck. Return to the Emergency Department if your current symptoms worsen despite treatment course outlined above, or if you develop any of the following symptoms : intractable pain despite aforementioned treatment course, loss of control of your bowel or bladder, numbness or tingling in your groin, or development of a fever. Problem Qualifiers Primary Impression: Fracture of coccyx Encounter type: initial encounter Fracture type: closed Qualified Codes: S32.2XXA - Fracture of coccyx, initial encounter for closed fracture
[2017-10-31 19:47] VITALS: BP 98/71; PULSE 93; O2SAT 100
[2017-10-31] MEDS ORDERED: DOCU-94 PO (19:47)
== END 2017-10-31 20:29 | disposition home or self-care (01) ==
LOC: C.EDB 16:31 → C.EDD 20:29
DX: S32.2XXA Fracture of coccyx, initial encounter for closed fracture (principal); W01.198A Fall on same level from slipping, tripping and stumbling with subsequent striking against other object, initial encounter; R40.2412 Glasgow coma scale score 13-15, at arrival to emergency department; E11.9 Type 2 diabetes mellitus without complications; Z79.4 Long term (current) use of insulin; Z79.84 Long term (current) use of oral hypoglycemic drugs; Z79.899 Other long term (current) drug therapy

== ENCOUNTER 2018-04-10 19:44 | Observation (INO) ==
[2018-04-10] MEDS ORDERED: SODIUM CHLORIDE 0.9% 500 ML IV SCH (21:15)
[2018-04-10 21:23] LABS: Basophils # (auto) 0.06 K/uL (0-0.2); Basophils % (auto) 0.6 %; Eosinophils # (auto) 0.17 K/uL (0-0.5); Eosinophils % (auto) 1.6 %; Hematocrit (blood only) 39.8 % (37-47); Immature Granulocytes # (auto) 0.03 K/uL (0.00-0.02); Immature Granulocytes % (auto) 0.3 %; Lymphocytes % (auto) 33.2 %; Mean Corpuscular Hgb Conc 32.7 g/dL (32-36); Mean Corpuscular Volume 86.3 fL (80-100); Mean Platelet Volume 9.7 fL (7.4-10.4); Monocytes # (auto) 0.65 K/uL (0.11-0.59); Monocytes % (auto) 6.2 %; Neutrophils # (auto) 6.13 K/uL (1.4-6.5); Neutrophils % (auto) 58.1 %; Platelet Count 261 K/uL (130-400); RDW Coefficient of Variation 13.1 % (11.5-14.5); RDW Standard Deviation 41.1 fL (36.4-46.3); Red Blood Count 4.61 M/uL (4.2-5.4); White Blood Count 10.54 K/uL (4.8-10.8)
[2018-04-10] MEDS ORDERED: LORazepam 1 MG/2 ML VIAL IV STA (21:35)
[2018-04-10] MEDS ORDERED: LORazepam 1 MG/2 ML VIAL IV PRN (21:36)
[2018-04-10 21:37] LABS: iSTAT Hemoglobin 13.3 g/dl (12.0-16.0); iSTAT Ionized Calcium 1.27 mmol/l (1.12-1.32)
[2018-04-10 21:44] LABS: Albumin Level 3.4 gm/dl (3.4-5.0); BUN Creatinine Ratio 25.8 (10-20); Calcium 9.5 mg/dl (8.5-10.1); Creatinine Clr Calc Pharmacy 55.1 ml/min; Est GFR (African American) 66.4; Est GFR (Non-African American) 57.3; Magnesium 1.6 mg/dl (1.8-2.4); Potassium 3.7 mmol/L (3.5-5.1)
--- NOTE | 2018-04-10 21:53 | XRay Report ---
XR chest 1V portable HISTORY: Atypical Chest Pain COMPARISON: Chest 04/10/2018. FINDINGS: Slightly rotated study. No pneumothorax. No pleural effusions. No focal lung consolidations to suggest pneumonia. No evidence for pulmonary edema. The heart is stable in size. IMPRESSION: No acute process. Electronically signed by: Erasto Wilburn M.D. 04/10/2018 9:52 PM
[2018-04-10 22:00] LABS: Bilirubin,Total 0.2 mg/dl (0.2-1); Globulin 3.6 gm/dl (2.5-4.0); Troponin I 2.67 ng/ml (0-0.045)
[2018-04-10] MEDS ORDERED: OPTIRAY 320 125ml IV PRN (22:34)
[2018-04-10] MEDS ORDERED: ASPIRIN CHEW 324 MG PO STA (22:36)
--- NOTE | 2018-04-10 22:48 | CT Scan Report ---
CHEST CTA for PULMONARY ARTERIES CT DOSE: 544.24 mGy.cm HISTORY: Atypical chest pain. Short of breath. TECHNIQUE: Multiaxial CT images of the chest were performed following the intravenous administration of contrast to evaluate the pulmonary arteries. Maximal intensity projection images were also obtaine d. A dose lowering technique was utilized adhering to the principles of ALARA. COMPARISON STUDY: None. FINDINGS: Normal caliber thoracic aorta with no evidence for dissection. The heart is normal in size. Trace pericardial fluid. No pleural effusions. No filling defects within the pulmonary arteries to s uggest pulmonary embolus. Kyphosis of the thoracic spine. No suspicious lytic or blastic osseous lesi ons. Partially visualized cholelithiasis. The visualized liver, spleen, and adrenal glands are unrema rkable. Mild elevation of the left hemidiaphragm. The esophagus is normal in course and caliber. Tiny hiatus hernia. No mediastinal or hilar lymphadenopathy. No pneumothorax. The central airways are pat ent. Small subpleural densities within the lung apices favor mild scarring. No focal lung consolidati ons to suggest pneumonia. IMPRESSION: 1. No evidence for pulmonary embolus. 2. No focal lung consolidations to suggest pneumonia. 3. Trace pericardial effusion. 4. Cholelithiasis. Electronically signed by: Erasto Wilburn M.D. 04/10/2018 10:46 PM
--- NOTE | 2018-04-11 00:53 | History & Physical Report ---
Date of Service April 11, 2018 Assessment & Plan (1) Elevated troponin: Patient presently CP free. Elevated troponin at 2.67, no STEMI on EKG but nonspecific ST changes. Patient with cardiac risk factors to include DM, HTN, HLP. New murmur is concerning. Patient does not appear to be volume overloaded or in florid CHF at this time. She was administered ASA 324mg in ER. * Admit to medical floor with telemetry * Trend troponin x 3 sets * Repeat EKG on arrival to floor * Echocardiogram in the AM * Consider Cardiology consultation * Start ASA 81mg po daily * Continue Crestor 20mg po daily * Should patient develop chest pain will initiate heparin gtt and notify Cardiology * Will keep patient NPO after midnight tonight for possible cath in AM * Present on Admission?: Yes (2) Dyspnea on exertion: Patient does not endorse CP but does have some severe SORENSON which may be an anginal equivalent in diabetic female. Presently no respiratory distress, adequate oxygenation and ventilation on room air * Cardiac plan as above * Present on Admission?: Yes (3) DM type 2 (diabetes mellitus, type 2): Patient with longstanding history of DM on insulin therapy. Last HgAIC 9.3 on 01/11/18 * Continue Lantus 40 u qHS - Will give 20u tonight as patient will be NPO * ISS while NPO - CF 30, CR 7. * When diet advanced may continue Novolog at home dose (17u with breakfast, 12u with lunch and 13u with dinner) * Monitor blood glucose * Hold Metformin while inpatient * Present on Admission?: Yes (4) Hypertension: Blood pressure normal at present, 101/50 * Continue to monitor - patient presently not on antihypertensive agents Present on Admission?: Yes (5) Dyslipidemia: Chronic * Continue Crestor * Present on Admission?: Yes (6) Anxiety: Patient appears anxious during exam. Her PCP was planning to increase her PM Buspirone to 7.5mg. * Will continue Buspirone 5mg po TID * She may be discharged home on 5mg po in AM and afternoon and 7.5mg in the evening * Continue Effexor 150mg po daily * Present on Admission?: Yes (7) Chronic pain: Patient is in the process of decreasing her pain medication. She is presently taking one 5mg percocet daily and using Tylenol as needed * Will continue Oxycodone 5mg po daily PRN * Tylenol PRN * Present on Admission?: Yes (8) Seasonal allergies: Continue Claritin (9) GERD (gastroesophageal reflux disease): Chronic. Symptoms well controlled * Continue Nexium and Zantac at home dosages * \\ F/E/N - Heplock. Monitor electrolytes and replete as needed. NPO for now for possible procedure in AM Ppx - Lovenox for DVT prophylaxis Code - Full per discussion with patient Dispo - Medical floor with telemetry History of Present Illness Chief Complaint: elevated troponin Primary Care Provider: Ashlee Wan PA-C Patient is a 67yo C female with history of DM on insulin, HLP, GERD and Anxiety presenting with elevated troponin. Patient reports that on Sunday04/08/18 she had some hot flashes with chills and two episodes of non-bloody/non-bilious vomiting and abdominal pain. Also had a feeling of pressure in her chest and an episode of mild confusion which rapidly resolved. Her symptoms resolved quickly, however, she reports that she has been feeling quite anxious since. She was seen by her PCP today for the complaint of persistent anxiety. During the exam a new systolic murmur was appreciated. Labs were drawn and the patient was to be set up for an echocardiogram. Patient's troponin came back elevated at > 3 therefore she was contacted by Dr. Kay and instructed to come to the ER. Patient reports no additional episodes of chest heaviness or pain. She has occasional palpitations which she associates with her blood sugar being low. Denies dizziness, confusion or loss of consciousness. She does report a stable SORENSON that she feels has been present and unchanged for "months to years". She states that after climbing a flight of stairs she is extremely short of breath as if she "climbed a mountain". To her knowledge she has no history of CAD, has never had a heart attack, arrhythmia or CHF. She does report having a stress test in the past but does not recall when. No additional complaints at this time. ER Course: ASA 324mg, Ativan 1mg IV Allergies Allergy/AdvReac Type Severity Reaction Status Date / Time No Known Allergies Allergy Verified 04/10/18 22:48 Home Medications Home Medications Medication Instructions Recorded Confirmed Type buspirone 5 mg PO TID 01/11/18 04/10/18 History esomeprazole magnesium [Nexium] 40 mg PO QAM 01/11/18 04/10/18 History insulin glargine [Lantus U-100 42 unit SUBCUT QPM 01/11/18 04/10/18 History Insulin] insulin lispro [Humalog KwikPen 1 dose SUBCUT UD 01/11/18 04/10/18 History Insulin] metformin 1,000 mg PO BID 01/11/18 04/10/18 History rosuvastatin 20 mg PO QAM 01/11/18 04/10/18 History venlafaxine [Effexor XR] 150 mg PO QAM 01/11/18 04/10/18 History celecoxib [Celebrex] 200 mg PO BID #60 cap 01/27/18 04/10/18 Rx ondansetron HCl [Zofran] 8 mg PO Q8H PRN #20 tab 01/27/18 04/10/18 Rx oxycodone 5 - 10 mg PO Q4H PRN #60 tab 01/27/18 04/10/18 Rx oxycodone [OxyContin] 10 mg PO BID #20 tab 01/27/18 04/10/18 Rx diphenhydramine HCl [Benadryl] 25 mg PO Q6H #60 cap 03/15/18 04/10/18 Rx loratadine [Claritin] 10 mg PO DAILY #30 tab 03/15/18 04/10/18 Rx ranitidine HCl [Zantac] 150 mg PO BID #60 tab 03/15/18 04/10/18 Rx Past Med/Surg History Medical History Anxiety Depression Diabetes mellitus, type 2 GERD (gastroesophageal reflux disease) Hiatal hernia Small Hyperlipidemia Osteoarthritis Peripheral neuropathy Surgical History History of tonsillectomy History of total knee replacement RT TKA 12/2017 L TKA Social History Current Living Situation: Family Current Living Situation Comment: LIVES WITH MOTHER Feels Safe at Home: Yes Smoking Status: Never smoker Second Hand Exposure: No Hx Alcohol Use: No Hx Substance Use: No Beliefs That Will Affect Care: None Preferred Language: Sami Review of Systems All systems reviewed & are unremarkable except as noted in HPI & below Physical Exam 2 Vital Signs (Past 24 Hours): Last Vital Signs Temp 36.7 C 04/10/18 20:15 Pulse 93 H 04/10/18 22:55 Resp 20 04/10/18 22:55 BP 101/50 L 04/10/18 22:55 Pulse Ox 95 04/10/18 22:55 Physical Exam: General: patient resting comfortably, NAD, non-toxic in appearance, AA&O x 4 Skin: warm, dry, intact, no rashes or lesions HEENT: NC/AT, PERRL, EOMI, anicteric sclera, conjunctiva without injection, external ear normal to inspection and nontender, nares patent, moist mucus membranes, dentition intact, no oropharyngeal lesions, neck supple, trachea midline, no LAD, no thyromegaly, no JVD Heart: +S1/S2, regular, 2/6 MALA at cardiac apex with radiation to the axilla and back, no rubs/gallops Lungs: equal air entry bilaterally, no rales/rhonchi/wheezes Abd: +BS, soft, NT/ND, no masses/organomegaly/ascites Ext: warm, 2+ pulses in UE/LE bilaterally, no clubbing/cyanosis or edema Neuro: nonfocal, patient AA&O x 4, speech intact, no facial droop, moving all extremities on command with equal strength 5/5 Results & Data Laboratory Results Lab Results 04/10/18 04/10/18 04/10/18 Range/Units 21:10 21:10 21:24 WBC 10.54 (4.8-10.8) K/uL RBC 4.61 (4.2-5.4) M/uL Hgb 13.0 (12.0-16.0) g/dL POC Hgb 13.3 (12.0-16.0) g/dl Hct 39.8 (37-47) % POC Hct 39 (37-47) % MCV 86.3 (80-100) fL MCH 28.2 (25-34) pg MCHC 32.7 (32-36) g/dL RDW Std Deviation 41.1 (36.4-46.3) fL RDW Coeff of Barrett 13.1 (11.5-14.5) % Plt Count 261 (130-400) K/uL MPV 9.7 (7.4-10.4) fL Immature Gran % (Auto) 0.3 % Neut % (Auto) 58.1 % Lymph % (Auto) 33.2 % Knott % (Auto) 6.2 % Eos % (Auto) 1.6 % Baso % (Auto) 0.6 % Immature Gran # (Auto) 0.03 H (0.00-0.02) K/uL Neut # (Auto) 6.13 (1.4-6.5) K/uL Lymph # (Auto) 3.50 H (1.2-3.4) K/uL Knott # (Auto) 0.65 H (0.11-0.59) K/uL Eos # (Auto) 0.17 (0-0.5) K/uL Baso # (Auto) 0.06 (0-0.2) K/uL POC Sodium 139 (135-144) mEq/L Sodium 138 (136-145) mmol/L POC Potassium 3.7 (3.3-5.0) mEq/L Potassium 3.7 (3.5-5.1) mmol/L POC Chloride 103 (101-112) mEq/L Chloride 104 (98-107) mmol/L Carbon Dioxide 24 (21-32) mmol/L POC Total CO2 23 L (24-31) mEq/l Anion Gap 10.0 (3-11) POC Anion Gap 17.0 (16-25) mmol/L POC BUN 24 H (7-18) mg/dl BUN 26 H (7-18) mg/dl Creatinine 1.02 (0.6-1.2) mg/dl POC Creatinine 0.8 (0.6-1.3) mg/dl Est Cr Clr Drug Dosing 55.1 ml/min Est GFR ( Amer) 66.4 Est GFR (Non-Af Amer) 57.3 BUN/Creatinine Ratio 25.8 H (10-20) Glucose 139 H (70-99) mg/dl POC Glucose (other) 134 H (70-99) mg/dl Calcium 9.5 (8.5-10.1) mg/dl POC Ioniz Calcium Wiley 1.27 (1.12-1.32) mmol/l Magnesium 1.6 L (1.8-2.4) mg/dl Total Bilirubin 0.2 (0.2-1) mg/dl AST 20 (15-37) U/L ALT 24 (12-78) U/L Alkaline Phosphatase 112 (45-117) U/L Troponin I 2.670 H* (0-0.045) ng/ml NT-Pro-B Natriuret Pep 41191 H (0-900) pg/ml Total Protein 7.0 (6.4-8.2) gm/dl Albumin 3.4 (3.4-5.0) gm/dl Globulin 3.6 (2.5-4.0) gm/dl Albumin/Globulin Ratio 1.0 (0.9-2) Lipase 41 L (73-393) U/L Diagnostic Findings XR chest 1V portable HISTORY: Atypical Chest Pain COMPARISON: Chest 04/10/2018. FINDINGS: Slightly rotated study. No pneumothorax. No pleural effusions. No focal lung consolidations to suggest pneumonia. No evidence for pulmonary edema. The heart is stable in size. IMPRESSION: No acute process. Electronically signed by: Erasto Wilburn M.D. 04/10/2018 9:52 PM Dictated: 04/10/[id number] Transcribed: 04/10/182151 CHEST CTA for PULMONARY ARTERIES CT DOSE: 544.24 mGy.cm HISTORY: Atypical chest pain. Short of breath. TECHNIQUE: Multiaxial CT images of the chest were performed following the intravenous administration of contrast to evaluate the pulmonary arteries. Maximal intensity projection images were also obtained. A dose lowering technique was utilized adhering to the principles of ALARA. COMPARISON STUDY: None. FINDINGS: Normal caliber thoracic aorta with no evidence for dissection. The heart is normal in size. Trace pericardial fluid. No pleural effusions. No filling defects within the pulmonary arteries to suggest pulmonary embolus. Kyphosis of the thoracic spine. No suspicious lytic or blastic osseous lesions. Partially visualized cholelithiasis. The visualized liver, spleen, and adrenal glands are unremarkable. Mild elevation of the left hemidiaphragm. The esophagus is normal in course and caliber. Tiny hiatus hernia. No mediastinal or hilar lymphadenopathy. No pneumothorax. The central airways are patent. Small subpleural densities within the lung apices favor mild scarring. No focal lung consolidations to suggest pneumonia. IMPRESSION: 1. No evidence for pulmonary embolus. 2. No focal lung consolidations to suggest pneumonia. 3. Trace pericardial effusion. 4. Cholelithiasis. Electronically signed by: Erasto Wilburn M.D. 04/10/2018 10:46 PM Dictated: [id number] Transcribed: 04/10/[id number] ECG Additional Comments: EKG shows sinus tachycardia at 104bpm, right axis deviation , FC=636, QRS=88, FRq=870, nonspecific ST changes in inferior leads Code Status & VTE Plan Code Status Full VTE Prophylaxis Plan VTE Prophylaxis will be ordered: Yes Critical Care Time Critical Care Time: No _ (1) DM type 2 (diabetes mellitus, type 2) Diabetes mellitus [employer] insulin use: with intermediate use Diabetes mellitus complication status: without complication Qualified Code(s): E11.9 - Type 2 diabetes mellitus without complications; Z79.4 - [facility]FP (current) use of insulin (2) Hypertension Hypertension type: essential hypertension Qualified Code(s): I10 - Essential (primary) hypertension (3) Chronic pain Chronic pain type: other chronic pain Qualified Code(s): G89.29 - Other chronic pain (4) GERD (gastroesophageal reflux disease) Esophagitis presence: esophagitis presence not specified Qualified Code(s): K21.9 - Gastro-esophageal reflux disease without esophagitis
--- NOTE | 2018-04-11 01:06 | Emergency Department Note ---
Entered by Kiya Nielsen acting as a scribe for History of Present Illness General Chief complaint: Abnormal Labs/Diagnostic Testing Stated complaint: ABNORMAL LABS Time Seen by Provider: 04/10/18 21:03 Source: patient History of Present Illness Onset (ago): hour(s) (today) Pain Consistency: + constant Maximum Pain Intensity: 0 Quality: + other (abnormal labs) Associated symptoms: no chest pain and no shortness of breath Treatments prior to arrival: none The patient is a 67 year old white female w/ PMHx of Hypertension and Diabetes who presents to the ED w/ CC of abnormal labs beginning today. The patient states that she has not felt well over the past couple days, and states that she was found to have a murmur today. She states that she then had blood work done, which were found to be abnormal. The patient states that she was referred to the ED for further testing. The patient denies chest pain, shortness of breath, and swelling in her legs. The patient states that she vomited twice 3 days ago. She denies being on blood thinners currently. The patient denies a history of blood clots. Home Medications Home Medications Medication Instructions Recorded Confirmed Type buspirone 5 mg PO TID 01/11/18 04/10/18 History esomeprazole magnesium [Nexium] 40 mg PO QAM 01/11/18 04/10/18 History insulin glargine [Lantus U-100 42 unit SUBCUT QPM 01/11/18 04/10/18 History Insulin] insulin lispro [Humalog KwikPen 1 dose SUBCUT UD 01/11/18 04/10/18 History Insulin] metformin 1,000 mg PO BID 01/11/18 04/10/18 History rosuvastatin 20 mg PO QAM 01/11/18 04/10/18 History venlafaxine [Effexor XR] 150 mg PO QAM 01/11/18 04/10/18 History celecoxib [Celebrex] 200 mg PO BID #60 cap 01/27/18 04/10/18 Rx ondansetron HCl [Zofran] 8 mg PO Q8H PRN #20 tab 01/27/18 04/10/18 Rx oxycodone 5 - 10 mg PO Q4H PRN #60 tab 11/04/18 01/16/19 Rx oxycodone [OxyContin] 10 mg PO BID #20 tab 01/27/18 04/10/18 Rx diphenhydramine HCl [Benadryl] 25 mg PO Q6H #60 cap 03/15/18 04/10/18 Rx loratadine [Claritin] 10 mg PO DAILY #30 tab 03/15/18 04/10/18 Rx ranitidine HCl [Zantac] 150 mg PO BID #60 tab 03/15/18 04/10/18 Rx Allergies Allergy/AdvReac Type Severity Reaction Status Date / Time No Known Allergies Allergy Verified 04/10/18 22:48 Past Med/Surg History Medical History Anxiety Depression Diabetes mellitus, type 2 GERD (gastroesophageal reflux disease) Hiatal hernia Small Hyperlipidemia Osteoarthritis Peripheral neuropathy Surgical History History of tonsillectomy History of total knee replacement RT TKA 12/2017 L TKA Social History Current Living Situation: Family Current Living Situation Comment: LIVES WITH MOTHER Feels Safe at Home: Yes Smoking Status: Never smoker Second Hand Exposure: No Hx Alcohol Use: No Hx Substance Use: No Beliefs That Will Affect Care: None Preferred Language: Georgian Review of Systems See HPI for pertinent positives & negatives. and A total of 10 systems reviewed and were otherwise negative Physical Exam Vital Signs Vital Signs - 24 hr 04/10/18 20:15 04/10/18 21:13 04/10/18 22:55 Temperature 36.7 C Temperature Source Oral Sepsis Recent Fever Within 48 Hours No Sepsis New/Unexplained Change in Mental Status No Sepsis Action Taken by Nursing No Action Required Pulse Rate 118 H Pulse Rate [Left] 93 H Respiratory Rate 16 20 Respiratory Effort / Characteristics Non-Labored Spontaneous Non-Labored Spontaneous Respiratory Depth Normal Normal Blood Pressure 94/58 L Blood Pressure [Right Arm] 101/50 L Blood Pressure Mean 70 Blood Pressure Mean [Right Arm] 67 Pulse Oximetry 97 95 Oxygen Delivery Method Room Air Room Air Room Air GENERAL: Well appearing, well nourished, NAD, non-toxic. EYE EXAM: Normal conjunctiva. PERRL, no anisocoria and EOM's grossly intact w/o pain OROPHARYNX: No exudate, posterior pharynx is clear, no tonsillar/uvular deviation or swelling, NECK: Supple, no nuchal rigidity, no adenopathy, non-tender. no signs of meningismus LUNGS: Clear to auscultation. Normal chest wall mechanics HEART: Tachycardic rate, regular rhythm. Trace systolic injection murmur. ABDOMEN: Abdomen soft, non-tender, normo-active bowel sounds, no masses, no rebound or guarding. BACK: No CVA TTP SKIN: No rashes and no bruising UPPER EXTREMITIES: Upper extremities are grossly normal. LOWER EXTREMITIES: No pitting edema. No calf pain NEURO EXAM: Cranial nerves II-XII grossly intact, normal speech, 5/5 strength throughout, moves all 4s on command w/o issue Course 2105: Past medical records reviewed. The patient was evaluated in room C2B, and a complete history and physical examination were performed. 2255: I updated the patient and checked on her. 7: I discussed the case with Dr. Rosie Tang Cardiology. He agrees with giving the patient Aspirin. He does not recommend Heparin as the patient is not symptomatic and has a down-trending troponin. He states that he will heparinize the patient if her clinical condition changes. 2311: I discussed the case with Dr. Geo Tang Hospitalist who will further evaluate the patient. Consultations Consultation #1: I discussed the case with Dr. Rosie Tang Cardiology. He agrees with giving the patient Aspirin. He does not recommend Heparin as the patient is not symptomatic and has a down-trending troponin. He states that he will heparinize the patient if her clinical condition changes. Time: 23:07 Consultation #2: I discussed the case with Dr. Geo Tang Hospitalist who will further evaluate the patient. Time: 23:11 Administered Medications Ioversol (Optiray 320 125ml) 125 ml IV ONCE PRN PRN Reason: Interaction Checking Stop: 04/14/18 22:33 Last Admin: 04/10/18 22:34 Dose: 115 ml Discontinued Medications Aspirin (Aspirin) 324 mg PO NOW STA Stop: 04/10/18 22:37 Last Admin: 04/10/18 22:55 Dose: 324 mg Sodium Chloride (Nss) 500 mls @ 999 mls/hr IV .Q31M PETROS Stop: 04/10/18 21:45 Last Infusion: 04/10/18 22:42 Dose: 0 mls/hr Admin: 04/10/18 22:03 Dose: 999 mls/hr Lorazepam (Ativan) 1 mg in 2 mls @ 2 mls/min IV NOW STA Stop: 04/10/18 21:36 Last Admin: 04/10/18 22:03 Dose: 2 mls/min Medical Decision Making Medical Records Attestation: I reviewed the patient's medical records. Home Medications Current Medication List: was personally reviewed by me Laboratory Data Attestation: I reviewed the patient's lab results. Result diagrams: 04/10/18 21:10 04/10/18 21:10 Lab Results 04/10/18 04/10/18 04/10/18 Range/Units 21:10 21:10 21:24 WBC 10.54 (4.8-10.8) K/uL RBC 4.61 (4.2-5.4) M/uL Hgb 13.0 (12.0-16.0) g/dL POC Hgb 13.3 (12.0-16.0) g/dl Hct 39.8 (37-47) % POC Hct 39 (37-47) % MCV 86.3 (80-100) fL MCH 28.2 (25-34) pg MCHC 32.7 (32-36) g/dL RDW Std Deviation 41.1 (36.4-46.3) fL RDW Coeff of Barrett 13.1 (11.5-14.5) % Plt Count 261 (130-400) K/uL MPV 9.7 (7.4-10.4) fL Immature Gran % (Auto) 0.3 % Neut % (Auto) 58.1 % Lymph % (Auto) 33.2 % [place] % (Auto) 6.2 % Eos % (Auto) 1.6 % Baso % (Auto) 0.6 % Immature Gran # (Auto) 0.03 H (0.00-0.02) K/uL Neut # (Auto) 6.13 (1.4-6.5) K/uL Lymph # (Auto) 3.50 H (1.2-3.4) K/uL [place] # (Auto) 0.65 H (0.11-0.59) K/uL Eos # (Auto) 0.17 (0-0.5) K/uL Baso # (Auto) 0.06 (0-0.2) K/uL POC Sodium 139 (135-144) mEq/L Sodium 138 (136-145) mmol/L POC Potassium 3.7 (3.3-5.0) mEq/L Potassium 3.7 (3.5-5.1) mmol/L POC Chloride 103 (101-112) mEq/L Chloride 104 (98-107) mmol/L Carbon Dioxide 24 (21-32) mmol/L POC Total CO2 23 L (24-31) mEq/l Anion Gap 10.0 (3-11) POC Anion Gap 17.0 (16-25) mmol/L POC BUN 24 H (7-18) mg/dl BUN 26 H (7-18) mg/dl Creatinine 1.02 (0.6-1.2) mg/dl POC Creatinine 0.8 (0.6-1.3) mg/dl Est Cr Clr Drug Dosing 55.1 ml/min Est GFR ( Amer) 66.4 Est GFR (Non-Af Amer) 57.3 BUN/Creatinine Ratio 25.8 H (10-20) Glucose 139 H (70-99) mg/dl POC Glucose (other) 134 H (70-99) mg/dl Calcium 9.5 (8.5-10.1) mg/dl POC Ioniz Calcium Wiley 1.27 (1.12-1.32) mmol/l Magnesium 1.6 L (1.8-2.4) mg/dl Total Bilirubin 0.2 (0.2-1) mg/dl AST 20 (15-37) U/L ALT 24 (12-78) U/L Alkaline Phosphatase 112 (45-117) U/L Troponin I 2.670 H* (0-0.045) ng/ml NT-Pro-B Natriuret Pep 35293 H (0-900) pg/ml Total Protein 7.0 (6.4-8.2) gm/dl Albumin 3.4 (3.4-5.0) gm/dl Globulin 3.6 (2.5-4.0) gm/dl Albumin/Globulin Ratio 1.0 (0.9-2) Lipase 41 L (73-393) U/L Imaging Data Radiologist's Impression: Radiology results as stated below per my review and the radiologist's interpretation: CHEST CTA for PULMONARY ARTERIES CT DOSE: 544.24 mGy.cm HISTORY: Atypical chest pain. Short of breath. TECHNIQUE: Multiaxial CT images of the chest were performed following the intravenous administration of contrast to evaluate the pulmonary arteries. Maximal intensity projection images were also obtained. A dose lowering technique was utilized adhering to the principles of ALARA. COMPARISON STUDY: None. FINDINGS: Normal caliber thoracic aorta with no evidence for dissection. The heart is normal in size. Trace pericardial fluid. No pleural effusions. No filling defects within the pulmonary arteries to suggest pulmonary embolus. Kyphosis of the thoracic spine. No suspicious lytic or blastic osseous lesions. Partially visualized cholelithiasis. The visualized liver, spleen, and adrenal glands are unremarkable. Mild elevation of the left hemidiaphragm. The esophagus is normal in course and caliber. Tiny hiatus hernia. No mediastinal or hilar lymphadenopathy. No pneumothorax. The central airways are patent. Small subpleural densities within the lung apices favor mild scarring. No focal lung consolidations to suggest pneumonia. IMPRESSION: 1. No evidence for pulmonary embolus. 2. No focal lung consolidations to suggest pneumonia. 3. Trace pericardial effusion. 4. Cholelithiasis. Electronically signed by: Erasto Wilburn M.D. 04/10/2018 10:46 PM XR chest 1V portable HISTORY: Atypical Chest Pain COMPARISON: Chest 04/10/2018. FINDINGS: Slightly rotated study. No pneumothorax. No pleural effusions. No focal lung consolidations to suggest pneumonia. No evidence for pulmonary edema. The heart is stable in size. IMPRESSION: No acute process. Electronically signed by: Erasto Wilburn M.D. 04/10/2018 9:52 PM ECG Data Attestation: I personally reviewed and interpreted this ECG as follows: Indication: tachycardia Rate (beats per minute): 104 Rhythm: sinus tachycardia Findings: + other (normal intervals; right axis deviation) and + Q waves (V1, V2 , and avL ) Comparison ECG Date: from (01/11/2018) Change: the following changes noted (Q waves new; right axis deviation new ) Blood Pressure Blood Pressure Findings: Elevated blood pressure Blood Pressure Disposition: further management by hospitalist REGAN Narrative The patient is a 67 year old white female w/ PMHx of Hypertension and Diabetes who presents to the ED w/ CC of abnormal labs beginning today. Differential diagnosis: Etiologies such as infections, reactive airway disease, COPD, pneumonia, pleural effusion, pulmonary edema, ARDS, pneumothorax, CHF, cardiac ischemia, cardiac tamponade, dysrhythmia, anemia, pulmonary embolism, musculoskeletal, gastrointestinal process, as well as others were entertained. Patient was seen at the bedside. The patient was referred as the patient apparently had some abnormal blood work today. The patient states that she has been chronic dyspnea on exertion but no acute change recently. Patient denies any fevers or chills. Patient denies any recent prolonged car plane travel or history of blood clots in legs or lungs. Patient's EKG does show some right axis deviation as well as some Q waves which are changed compared to prior. No evidence of overt depressions or elevations seen on the CT troponin prior to arrival. This was repeated. Troponin is downtrending from 3-2. The patient denies any chest pains or shortness of breath. The patient was given a full dose aspirin. Patient did have a CT PE angiogram completed. The patient does not have any evidence of blood clot. I did speak the on-call plaster tender who stated given the patient's absence of chest pain downtrending troponin would not heparinize and that she has a clinical change in her condition. Patient did respond well to some fluids. I did speak with the on-call hospitalist who agreed to further evaluate treat the patient. Impression & Plan Elevated troponin, Acute electrocardiogram changes, Dyspnea on exertion Discharge Plan Visit Data Chief Complaint: Abnormal Labs/Diagnostic Testing Stated Complaint: ABNORMAL LABS ED Provider: Shay Trejo Discharge Problem: Elevated troponin, Acute electrocardiogram changes, Dyspnea on exertion Patient Disposition: Being Evaluated by Hospitalist Forms Stand Alone Forms: My [facility] Prescriptions Prescriptions: No Action buspirone 5 mg Tablet 5 mg PO TID RF: 0 insulin glargine [Lantus U-100 Insulin] 100 unit/mL Solution 42 unit SUBCUT QPM RF: 0 venlafaxine [Effexor XR] 150 mg Capsule,Extended Release 24hr 150 mg PO QAM RF: 0 metformin 1,000 mg Tablet 1,000 mg PO BID RF: 0 esomeprazole magnesium [Nexium] 40 mg Capsule,Delayed Release(Dr/Ec) 40 mg PO QAM RF: 0 insulin lispro [Humalog KwikPen Insulin] 100 unit/mL Insulin Pen 1 dose SUBCUT UD RF: 0 rosuvastatin 20 mg Tablet 20 mg PO QAM RF: 0 celecoxib [Celebrex] 200 mg Capsule 200 mg PO BID Qty: 60 RF: 0 oxycodone [OxyContin] 10 mg Tablet,Oral Only,Ext.Rel.12 Hr 10 mg PO BID Qty: 20 RF: 0 oxycodone 5 mg Tablet 5 - 10 mg PO Q4H PRN (Reason: pain) Qty: 60 RF: 0 ondansetron HCl [Zofran] 8 mg tablet 8 mg PO Q8H PRN (Reason: nausea and vomiting) Qty: 20 RF: 0 ranitidine HCl [Zantac] 150 mg tablet 150 mg PO BID Qty: 60 RF: 0 loratadine [Claritin] 10 mg tablet 10 mg PO DAILY Qty: 30 RF: 0 diphenhydramine HCl [Benadryl] 25 mg capsule 25 mg PO Q6H Qty: 60 RF: 0 Referrals Referrals: Ashlee Wan PAAngel LuisC [Primary Care Provider] - The scribe's documentation has been prepared under my direction and personally reviewed by me in its entirety. I confirm that the note above accurately reflects all work, treatment, procedures, and medical decision making performed by me.
[2018-04-11] MEDS ORDERED: GLUCOSE 40% GEL 15 GM TUBE PO PRN (01:46)
[2018-04-11] MEDS ORDERED: CARBOHYDRATES FOR HYPOGLYCEMIA PO PRN (01:46)
[2018-04-11] MEDS ORDERED: LORATADINE 10 MG TAB PO SCH ×2 (01:46→21:00)
[2018-04-11] MEDS ORDERED: ONDANSETRON INJ 2 MG/ML 2 ML VIAL IV PRN (01:46)
[2018-04-11] MEDS ORDERED: GLUCOSE 10 TABS/TUBE PO PRN (01:46)
[2018-04-11] MEDS ORDERED: ACETAMINOPHEN 325 MG TAB PO PRN ×2 (01:46→13:15)
[2018-04-11] MEDS ORDERED: DEXTROSE 50% 50 ML SYRINGE IV PRN (01:46)
[2018-04-11] MEDS ORDERED: GLUCAGON FOR INJ 1 MG VIAL SQ PRN (01:46)
[2018-04-11] MEDS ORDERED: DOCUSATE SODIUM 100 MG CAP PO ONE (02:15)
[2018-04-11] MEDS ORDERED: Nursing to Pharmacy Communication ONE (02:18)
[2018-04-11 02:26] LABS: BUN Creatinine Ratio 30.2 (10-20); Calcium 8.9 mg/dl (8.5-10.1); Creatinine Clr Calc Pharmacy 70.2 ml/min; Est GFR (Non-African American) 76.8; Potassium 3.5 mmol/L (3.5-5.1)
[2018-04-11] MEDS: OXYCODONE HCL IR 5 MG TAB (IMMEDIATE RELEASE) PO PRN (02:34)
[2018-04-11] MEDS: MAGNESIUM SULFATE / D5W 1 GM/100 ML BAG IV SCH ×2 (02:35→03:36)
[2018-04-11 02:40] LABS: Phosphorus 4.2 mg/dl (2.5-4.9); Troponin I 2.18 ng/ml (0-0.045)
[2018-04-11] MEDS: INSULIN ASPART 100 UNITS/ML 3 ML PEN SC SCH ×4 (05:47→20:20)
[2018-04-11] MEDS ORDERED: INSULIN ASPART 100 UNITS/ML 3 ML PEN SC SCH (07:30)
[2018-04-11] MEDS: ENOXAPARIN INJ 40 MG/0.4 ML SYR SQ SCH (07:59)
[2018-04-11] MEDS: DOCUSATE SODIUM 100 MG CAP PO SCH ×2 (07:59→20:10)
[2018-04-11] MEDS: ROSUVASTATIN CALCIUM 20 MG TAB PO SCH (08:00)
[2018-04-11] MEDS: PANTOprazole 40 MG TAB PO SCH (08:00)
[2018-04-11] MEDS: ASPIRIN 81 MG ECTAB PO SCH (08:00)
[2018-04-11] MEDS: VENLAFAXINE HCL XR 150 MG CAPXR PO SCH (08:00)
[2018-04-11 08:04] LABS: Basophils # (auto) 0.03 K/uL (0-0.2); Basophils % (auto) 0.5 %; Eosinophils % (auto) 1.7 %; Hematocrit (blood only) 36.3 % (37-47); Hemoglobin 11.7 g/dL (12.0-16.0); Immature Granulocytes # (auto) 0.02 K/uL (0.00-0.02); Immature Granulocytes % (auto) 0.3 %; Mean Corpuscular Hgb Conc 32.2 g/dL (32-36); Mean Corpuscular Volume 86.4 fL (80-100); Mean Platelet Volume 9.4 fL (7.4-10.4); Monocytes # (auto) 0.24 K/uL (0.11-0.59); Neutrophils # (auto) 3.65 K/uL (1.4-6.5); Neutrophils % (auto) 61.5 %; Platelet Count 204 K/uL (130-400); RDW Coefficient of Variation 13.3 % (11.5-14.5); RDW Standard Deviation 41.9 fL (36.4-46.3); White Blood Count 5.94 K/uL (4.8-10.8)
[2018-04-11 08:33] LABS: BUN Creatinine Ratio 25.6 (10-20); Calcium 8.8 mg/dl (8.5-10.1); Creatinine Clr Calc Pharmacy 70.3 ml/min; Est GFR (Non-African American) 76.8; Potassium 3.7 mmol/L (3.5-5.1)
[2018-04-11 08:42] LABS: Troponin I 1.76 ng/ml (0-0.045)
--- NOTE | 2018-04-11 09:46 | Cardiology Consultation ---
Addendum entered and electronically signed by Bailey Randall PA-C 04/11/18 11 :11: Addendum (Blank) Addendum April 11, 2018 11:10 Original Note: Date of Consultation April 11, 2018 Assessment & Plan (1) Elevated troponin: She had some fevers/chills, diaphoresis, vomiting, and an episode of chest pain earlier this week. She subsequently saw her PCP yesterday, and an outpatient troponin was drawn that was elevated at 3.49. Her troponin has since trended downward. ECG on arrival to the ED yesterday showed inferior T wave abnormality, which have now resolved. Echocardiogram shows large area of hypokinesis involving the entire apex and mid to distal anterior, anteroseptum, lateral, inferior and posterior brown. Her LV systolic function is moderate to severely reduced with an EF of 25-30%. Given the concerning nature of her symptoms earlier this week, elevated troponin, and abnormal echocardiogram, recommend proceed with cardiac catheterization for further evaluation. Will discuss with patient to see if she is agreeable to undergoing the study. Would keep her NPO for the time being. (2) Cardiomyopathy: Her echo showed an EF of 25-30% and wall motion abnormalities as noted above. This is a new finding compared to a prior echo in December 2016. Recommend cardiac catheterization as noted above. Patient would also benefit from the addition of a beta claudio and GARTH/ARB if heart rate and blood pressure will allow. (3) Dyslipidemia: Continue statin therapy. Patient was discussed with Dr. Jennings who will also be in to see the patient later this morning, and will further discuss cardiac catheterization with the patient at that time. History of Present Illness Reason for Consultation: Elevated troponin Requesting Physician: Dr. Metcalf Attending Physician: Dr. Jennings History of Present Illness Ms. Judge is a 67-year-old female with a past medical history significant for type 2 diabetes mellitus, dyslipidemia, GERD, and depression/anxiety who was admitted yesterday in the setting of an elevated troponin. The patient states that on Sunday, she felt hot then cold at times, and she also was rather diaphoretic. On Sunday night, she had an episode where she briefly felt disoriented and then vomited twice. She also reports an episode where she felt as though someone was sitting on her chest, but she is not sure as to when the chest discomfort occurred. She states that the pain was non- radiating and lasted a few minutes in duration. She states that she began feeling nervous, jittery, and anxious following all of these symptoms and decided to see her PCP yesterday for further evaluation of the anxiety and possible stomach flu. ECG in her PCP's office reportedly showed no acute changes. She was also ordered a chest x-ray and laboratory studies, including CBC, chem profile, lipase, and troponin. Her troponin was elevated at 3.490, and she was referred to the ED where she was then admitted. Her subsequent troponins have trended downward. Repeat ECG in the ED showed inferior T wave abnormality. Echocardiogram is abnormal with new wall motion abnormalities and reduced LV systolic function with an EF of 25-30%. The patient states that she is currently feeling well aside from left knee pain where she had a prior TKA. She denies any further episodes of chest discomfort. She reports chronic dyspnea on exertion, which she feels has been stable in nature. She denies orthopnea, PND, or edema. She reports occasional episodes of palpitations when her blood sugar is low. She denies syncope or presyncope. She denies abnormal bleeding such as melena, hematochezia, or hematuria. She denies cerebrovascular symptoms. Review of Systems: As noted in HPI. All other 10 point ROS are reviewed and otherwise negative at this time. PMH: 1. Type 2 diabetes mellitus - on insulin 2. Dyslipidemia 3. Depression/anxiety 4. GERD 5. Osteopenia 6. Hiatal hernia 7. Left total knee arthroplasty 01/23/2018 8. Left GSV RFA 12/06/2013 Family hx: She states that her parents have no cardiovascular history. She does not know the rest of her family history. Social hx: She is . She does not have children. She lives with her mother. She denies smoking. Rare alcohol use. Allergies Allergy/AdvReac Type Severity Reaction Status Date / Time No Known Allergies Allergy Verified 05/02/18 07:57 Home Medications Home Medications Medication Instructions Recorded Confirmed Type buspirone 5 mg PO TID 01/11/18 05/02/18 History esomeprazole magnesium [Nexium] 40 mg PO QAM 01/11/18 05/02/18 History insulin glargine [Lantus U-100 42 unit SUBCUT QPM 01/11/18 05/02/18 History Insulin] insulin lispro [Humalog KwikPen 1 dose SUBCUT UD 01/11/18 05/02/18 History Insulin] metformin 1,000 mg PO BID 01/11/18 05/02/18 History rosuvastatin 20 mg PO QAM 01/11/18 05/02/18 History venlafaxine [Effexor XR] 150 mg PO QAM 01/11/18 05/02/18 History ondansetron HCl [Zofran] 8 mg PO Q8H PRN #20 tab 01/27/18 05/02/18 Rx oxycodone 5 - 10 mg PO Q4H PRN #60 tab 01/27/18 05/02/18 Rx oxycodone [OxyContin] 10 mg PO BID #20 tab 01/27/18 05/02/18 Rx diphenhydramine HCl [Benadryl] 25 mg PO Q6H #60 cap 03/15/18 05/02/18 Rx loratadine [Claritin] 10 mg PO DAILY #30 tab 03/15/18 05/02/18 Rx ranitidine HCl [Zantac] 150 mg PO BID #60 tab 03/15/18 05/02/18 Rx aspirin [Ecotrin Low Strength] 81 mg PO DAILY #30 tab 04/12/18 05/02/18 Rx metoprolol succinate 25 mg PO QAM #30 tab 04/12/18 05/02/18 Rx Patient History Medical History Lumbago (Chronic) Lumbar spondylosis (Chronic) Lumbar facet joint syndrome (Chronic) Cardiomyopathy Seasonal allergies (Chronic) GERD (gastroesophageal reflux disease) (Chronic) Chronic pain (Chronic) Anxiety (Chronic) Elevated troponin (Acute) Acute electrocardiogram changes (Acute) Dyslipidemia (Chronic) Left knee DJD (Chronic) Hypertension (Chronic) DM type 2 (diabetes mellitus, type 2) (Chronic) Venous insufficiency (Acute 11/26/13) Back contusion (Acute) Fracture of coccyx (Acute) Anxiety Depression Diabetes mellitus, type 2 GERD (gastroesophageal reflux disease) Hiatal hernia Small Hyperlipidemia Osteoarthritis Peripheral neuropathy Surgical History History of tonsillectomy History of total knee replacement RT TKA 12/2017 L TKA Social History Current Living Situation: Parent Current Living Situation Comment: LIVES WITH MOTHER Feels Safe at Home: Yes Smoking Status: Never smoker Second Hand Exposure: No Hx Alcohol Use: No Hx Substance Use: Yes substance use type: prescription drug Substance Use Type Other:: joel prn Beliefs That Will Affect Care: None Preferred Language: Malay Physical Exam 2 Vital Signs (Past 24 Hours): Last Vital Signs Temp 36.7 C 04/11/18 07:52 Pulse 86 04/11/18 08:00 Resp 18 04/11/18 07:52 BP 104/66 04/11/18 07:52 Pulse Ox 96 04/11/18 07:52 Constitutional: Alert, oriented, in no acute distress HEENT: Head is atraumatic and normocephalic. EOMs intact. Sclera anicteric. Face is symmetric. No perioral cyanosis. Mucous membranes moist. Neck: Supple, no JVD, no carotid bruits Pulmonary: Normal respiratory effort, clear to auscultation bilaterally Cardiac: Regular rate and rhythm, normal S1 and S2, no gallops, no rubs, grade 2/6 apical systolic murmur Extremities: No clubbing, cyanosis, or edema. Pulses 2+ and symmetric Abdomen: Obese. Normal bowel sounds, soft, non-tender, no abdominal mass palpated Skin: Normal skin color, turgor, and pigmentation, no rash, no skin lesions Neurological: Oriented to person, place, and time Results & Data Laboratory Results Laboratory Results WBC 5.94 K/uL (4.8-10.8) 04/11/18 07:55 RBC 4.20 M/uL (4.2-5.4) 04/11/18 07:55 Hgb 11.7 g/dL (12.0-16.0) L 04/11/18 07:55 POC Hgb 13.3 g/dl (12.0-16.0) 04/10/18 21:24 Hct 36.3 % (37-47) L 04/11/18 07:55 POC Hct 39 % (37-47) 04/10/18 21:24 MCV 86.4 fL (80-100) 04/11/18 07:55 MCH 27.9 pg (25-34) 04/11/18 07:55 MCHC 32.2 g/dL (32-36) 04/11/18 07:55 RDW Std Deviation 41.9 fL (36.4-46.3) 04/11/18 07:55 RDW Coeff of Barrett 13.3 % (11.5-14.5) 04/11/18 07:55 Plt Count 204 K/uL (130-400) 04/11/18 07:55 MPV 9.4 fL (7.4-10.4) 04/11/18 07:55 Immature Gran % (Auto) 0.3 % 04/11/18 07:55 Neut % (Auto) 61.5 % 04/11/18 07:55 Lymph % (Auto) 32.0 % 04/11/18 07:55 [place] % (Auto) 4.0 % 04/11/18 07:55 Eos % (Auto) 1.7 % 04/11/18 07:55 Baso % (Auto) 0.5 % 04/11/18 07:55 Immature Gran # (Auto) 0.02 K/uL (0.00-0.02) 04/11/18 07:55 Neut # (Auto) 3.65 K/uL (1.4-6.5) 04/11/18 07:55 Lymph # (Auto) 1.90 K/uL (1.2-3.4) 04/11/18 07:55 [place] # (Auto) 0.24 K/uL (0.11-0.59) 04/11/18 07:55 Eos # (Auto) 0.10 K/uL (0-0.5) 04/11/18 07:55 Baso # (Auto) 0.03 K/uL (0-0.2) 04/11/18 07:55 PT 10.0 Seconds (9.0-12.0) 04/10/18 21:10 INR 1.0 (0.9-1.1) 04/10/18 21:10 POC Sodium 139 mEq/L (135-144) 04/10/18 21:24 Sodium 137 mmol/L (136-145) 04/11/18 07:55 POC Potassium 3.7 mEq/L (3.3-5.0) 04/10/18 21:24 Potassium 3.7 mmol/L (3.5-5.1) 04/11/18 07:55 POC Chloride 103 mEq/L (101-112) 04/10/18 21:24 Chloride 103 mmol/L (98-107) 04/11/18 07:55 Carbon Dioxide 26 mmol/L (21-32) 04/11/18 07:55 POC Total CO2 23 mEq/l (24-31) L 04/10/18 21:24 Anion Gap 8.0 (3-11) 04/11/18 07:55 POC Anion Gap 17.0 mmol/L (16-25) 04/10/18 21:24 POC BUN 24 mg/dl (7-18) H 04/10/18 21:24 BUN 20 mg/dl (7-18) H 04/11/18 07:55 Creatinine 0.80 mg/dl (0.6-1.2) 04/11/18 07:55 POC Creatinine 0.8 mg/dl (0.6-1.3) 04/10/18 21:24 Est Cr Clr Drug Dosing 70.3 ml/min 04/11/18 07:55 Est GFR ( Amer) 89.0 04/11/18 07:55 Est GFR (Non-Af Amer) 76.8 04/11/18 07:55 BUN/Creatinine Ratio 25.6 (10-20) H 04/11/18 07:55 Glucose 154 mg/dl (70-99) H 04/11/18 07:55 POC Glucose 105 (70-99) H 04/11/18 05:42 POC Glucose (other) 134 mg/dl (70-99) H 04/10/18 21:24 Calcium 8.8 mg/dl (8.5-10.1) 04/11/18 07:55 POC Ioniz Calcium Wiley 1.27 mmol/l (1.12-1.32) 04/10/18 21:24 Phosphorus 4.2 mg/dl (2.5-4.9) 04/11/18 01:54 Magnesium 1.6 mg/dl (1.8-2.4) L 04/10/18 21:10 Total Bilirubin 0.2 mg/dl (0.2-1) 04/10/18 21:10 AST 20 U/L (15-37) 04/10/18 21:10 ALT 24 U/L (12-78) 04/10/18 21:10 Alkaline Phosphatase 112 U/L (45-117) 04/10/18 21:10 Troponin I 1.760 ng/ml (0-0.045) H* 04/11/18 07:55 NT-Pro-B Natriuret Pep 30919 pg/ml (0-900) H 04/10/18 21:10 Total Protein 7.0 gm/dl (6.4-8.2) 04/10/18 21:10 Albumin 3.4 gm/dl (3.4-5.0) 04/10/18 21:10 Globulin 3.6 gm/dl (2.5-4.0) 04/10/18 21:10 Albumin/Globulin Ratio 1.0 (0.9-2) 04/10/18 21:10 Lipase 41 U/L (73-393) L 04/10/18 21:10 Diagnostic Findings Echocardiogram: 1. Left ventricular systolic function is moderate to severely reduced, EF 25-30% . 2. Large area of hypokinesis involving the entire apex and mid to distal anterior, anteroseptum, lateral, inverior and posterior brown. 3. Mild MR. 4. Compared to prior study in December 2016, LV systolic function has declined and wall motion abnormalities are now present. Chest CTA: 1. No evidence for pulmonary embolus. 2. No focal lung consolidations to suggest pneumonia. 3. Trace pericardial effusion. 4. Cholelithiasis. CXR: No acute process. ECG 04/11/2018: Normal sinus rhythm. Low voltage QRS. ECG 04/10/2018: Sinus tachycardia at 104 bpm. T wave inversion in leads III and aVF. Telemetry monitoring: Sinus rhythm in the 70s-80s.
--- NOTE | 2018-04-11 11:26 | Pre Anesthesia Assessment ---
Date of Service April 11, 2018 Pre Sedation Assessment Vital Signs Temp Pulse Pulse Resp BP BP Pulse Ox 04/11/18 08:00 86 04/11/18 07:52 36.7 C 83 18 104/66 96 04/11/18 04:02 36.6 C 80 18 111/67 97 04/11/18 02:50 86 04/11/18 01:42 76 04/11/18 01:35 36.5 C 85 18 103/63 95 04/11/18 01:00 90 18 118/58 L 97 04/11/18 00:00 88 18 112/63 95 04/10/18 22:55 93 H 20 101/50 L 95 04/10/18 20:15 36.7 C 118 H 16 94/58 L 97 Cardiovascular + regular rate Respiratory + respiratory effort normal Pre-Sedation Airway Assessment Smoking Status: Never smoker Hx Sleep Apnea: No Hx Difficult Intubation: No Short, Thick Neck: No Thyromental Distance: > or= 3.5 Finger Breadths Oral Cavity: + WNL Mallampati Class: III ASA: ASA3 Procedure Planning Contraindications for Sedation: none Current Medications Reviewed: Yes Notes The planned sedation has been discussed with the patient. Informed Consent was obtained. I have identified the patient, determined the appropriateness of sedation and have assessed the patient immediately prior to the procedure. All medicine(s) and interventions are by my order.
[2018-04-11] MEDS ORDERED: NiCARDipine HCL INJ 2.5 MG/ML 10 ML AMP ONE (11:44)
[2018-04-11] MEDS ORDERED: NITROGLYCERIN/D5W 100MCG/ML 20ML SYR ONE (11:45)
[2018-04-11] MEDS ORDERED: HEPARIN (PORCINE) 1000 UNIT/ML 10 ML (CATH LAB USE ONLY) ONE (11:45)
[2018-04-11] MEDS ORDERED: MIDAZOLAM HCL 1 MG/ML 2ML VIAL ONE (11:45)
[2018-04-11] MEDS ORDERED: fentaNYL citrate 100 MCG/2 ML VIAL ONE (11:46)
[2018-04-11] MEDS ORDERED: LIDOCAINE HCL 1% 20 ML VIAL ONE (11:53)
[2018-04-11] MEDS ORDERED: PNEUMOCOCCAL POLYSACCHARIDES 25 MCG/0.5 ML VIAL/SYR IM ONE (12:00)
[2018-04-11] MEDS ORDERED: PNEUMOCOCCAL ADMINISTRATION CHARGE ONE (12:00)
--- NOTE | 2018-04-11 13:15 | Cardiac Catheterization ---
Cardiac Cath Procedure: Brief Procedure Date April 11, 2018 Pre-Procedure Diagnosis Pre-Procedure Diagnosis: Non STEMI AUC Score AUC Score: 8 Post-Procedure Diagnosis Post-Procedure Diagnosis: Normal Coronary Arteries Procedure(s) Performed Procedure(s) Performed: Coronary Angiography and Left Heart Cath Building Service Worker Aubrey Jennings MD Casualty Claims Supervisor(s) [place] Estimated Blood Loss Estimated Blood Loss: 5cc Medication(s) Medication(s): Heparin, Morphine, Nicardipine, Nitroglycerin and Versed Preliminary Findings Normal coronaries. LV EDP 19mm/Hg Recommendations Recommendations: Medical Therapy and/or Counseling Specimens Specimens: None Procedural Complication(s) None Disposition PCU
[2018-04-11] MEDS: ACETAMINOPHEN W/CODEINE #3 1 TAB PO PRN ×2 (15:57→20:28)
[2018-04-11] MEDS: METOPROLOL SUCC 25MG EXT REL TAB PO SCH (15:58)
[2018-04-11] MEDS ORDERED: INSULIN GLARGINE SOLOSTAR 100 UNITS/ML 3 ML PEN SQ SCH (21:00)
--- NOTE | 2018-04-11 22:43 | Family Medicine Progress Note ---
Date of Service April 11, 2018 Assessment & Plan (1) Cardiomyopathy: (2) GERD (gastroesophageal reflux disease): (3) Chronic pain: (4) Anxiety: (5) Elevated troponin: (6) Acute electrocardiogram changes: (7) Dyslipidemia: (8) Left knee DJD: (9) Dyspnea on exertion: (10) Hypertension: (11) DM type 2 (diabetes mellitus, type 2): Elevated troponin/NSTEMI/Cardiomyopathy -Trops have trended down. nonspecific ST changes on EKG. -New murmur is concerning. Patient does not appear to be volume overloaded or in florid CHF at this time. -Echocardiogram shows global hypokinesis, EF 25-30% -Cardiology consultation appreciated, taken for catheterization today, normal coronary arteries -ASA 81mg po daily -Continue Crestor 20mg po daily Dyspnea on exertion: -Patient does not endorse CP but does have some severe SORENSON, this may be an anginal equivalent in diabetic female. -Vitals stable, no respiratory distress, adequate oxygenation and ventilation on room air -Cardiac plan as above DM type 2 (diabetes mellitus, type 2): -HbAIC 9.7 -Continue Lantus 40 u qHS -ISS, continue Novolog at home dose (17u with breakfast, 12u with lunch and 13u with dinner) -Monitor blood glucose -Hold Metformin Hypertension: -BPs well controlled -patient presently not on antihypertensive agents, consider adding GARTH/ARB/BB if BP and HR allow Dyslipidemia: -Chronic, Continue Crestor Anxiety: -PCP was planning to increase her PM Buspirone to 7.5mg. -Will continue Buspirone 5mg po TID -She may be discharged home on 5mg po in AM and afternoon and 7.5mg in the evening -Continue Effexor 150mg po daily Chronic pain: -Patient is in the process of decreasing her pain medication. Takes one 5mg percocet daily and using Tylenol as needed -Continue Oxycodone 5mg po daily PRN -Tylenol PRN -Tylenol #3 added post-cath Seasonal allergies: -Continue Claritin GERD (gastroesophageal reflux disease): -Chronic. Symptoms well controlled -Continue Nexium and Zantac at home dosages Ppx - Lovenox for DVT prophylaxis Code - Full per discussion with patient Dispo -PCU, likely home tomorrow Supervising Physician Co-Signing Physician Notes Resident Physician Supervision Note: I independently interviewed and examined the patient and verified the whatley history and physical, reviewed labs and image studies, discussed the case with the resident Dr. Christie and agree with the findings and care plan. Subjective Patient report she is feeling well this morning, and most of her symptoms have resolved. She states she is still a bit anxious as to what happened to her, and was surprised to hear she may have had a heart attack. She has many questions about what will be happening to her. Review of Systems All systems reviewed & are unremarkable except as noted in HPI & below Constitutional: no fever, no chills and no body aches Respiratory: + dyspnea on exertion; no cough and no chest congestion Cardiovascular: + dyspnea on exertion; no chest pain, no chest pain with activity, no radiating jaw, neck or arm pain and no palpitations Gastrointestinal: + heartburn; no abdominal pain Physical Exam 2 Vital Signs (Past 24 Hours): Last Vital Signs Temp 37 C 04/11/18 19:15 Pulse 77 04/11/18 19:15 Resp 20 04/11/18 19:15 BP 102/60 04/11/18 20:30 Pulse Ox 94 04/11/18 19:15 Constitutional: WD/WN, vitals as above Eyes: PERRL, conjunctivae normal, anicteric sclerae ENMT: external ear and nose normal, oropharynx normal Neck: normal visual inspection Respiratory: normal respiratory effort, lungs clear to auscultation Cardiovascular: Rate/Rhythm: regular rate and regular rhythm Heart Sounds: + murmur (MALA) Extremities: no calf tenderness and no pedal edema Gastrointestinal (Abdomen): normal bowel sounds, soft, nontender, no hepatosplenomegaly Musculoskeletal: no cyanosis or clubbing, extremities motor strength 5/5 Skin: no rashes, warm and dry Neurologic: PERRL, EOMI, accommodation nl, no face palsy, no dysarthria Psychiatric: A+Ox3, euthymic affect Results & Data Laboratory Results 04/11/18 04/11/18 04/11/18 Range/Units 20:17 16:26 13:42 WBC (4.8-10.8) K/uL RBC (4.2-5.4) M/uL Hgb (12.0-16.0) g/dL Hct (37-47) % MCV (80-100) fL MCH (25-34) pg MCHC (32-36) g/dL RDW Std Deviation (36.4-46.3) fL RDW Coeff of Barrett (11.5-14.5) % Plt Count (130-400) K/uL MPV (7.4-10.4) fL Immature Gran % (Auto) % Neut % (Auto) % Lymph % (Auto) % [place] % (Auto) % Eos % (Auto) % Baso % (Auto) % Immature Gran # (Auto) (0.00-0.02) K/uL Neut # (Auto) (1.4-6.5) K/uL Lymph # (Auto) (1.2-3.4) K/uL [place] # (Auto) (0.11-0.59) K/uL Eos # (Auto) (0-0.5) K/uL Baso # (Auto) (0-0.2) K/uL PT (9.0-12.0) Seconds INR (0.9-1.1) Sodium (136-145) mmol/L Potassium (3.5-5.1) mmol/L Chloride (98-107) mmol/L Carbon Dioxide (21-32) mmol/L Anion Gap (3-11) BUN (7-18) mg/dl Creatinine (0.6-1.2) mg/dl Est Cr Clr Drug Dosing ml/min Est GFR ( Amer) Est GFR (Non-Af Amer) BUN/Creatinine Ratio (10-20) Glucose (70-99) mg/dl POC Glucose 241 H 298 H 268 H (70-99) Calcium (8.5-10.1) mg/dl Phosphorus (2.5-4.9) mg/dl Troponin I (0-0.045) ng/ml 04/11/18 04/11/18 04/11/18 Range/Units 07:55 07:55 05:42 WBC 5.94 (4.8-10.8) K/uL RBC 4.20 (4.2-5.4) M/uL Hgb 11.7 L (12.0-16.0) g/dL Hct 36.3 L (37-47) % MCV 86.4 (80-100) fL MCH 27.9 (25-34) pg MCHC 32.2 (32-36) g/dL RDW Std Deviation 41.9 (36.4-46.3) fL RDW Coeff of Barrett 13.3 (11.5-14.5) % Plt Count 204 (130-400) K/uL MPV 9.4 (7.4-10.4) fL Immature Gran % (Auto) 0.3 % Neut % (Auto) 61.5 % Lymph % (Auto) 32.0 % [place] % (Auto) 4.0 % Eos % (Auto) 1.7 % Baso % (Auto) 0.5 % Immature Gran # (Auto) 0.02 (0.00-0.02) K/uL Neut # (Auto) 3.65 (1.4-6.5) K/uL Lymph # (Auto) 1.90 (1.2-3.4) K/uL [place] # (Auto) 0.24 (0.11-0.59) K/uL Eos # (Auto) 0.10 (0-0.5) K/uL Baso # (Auto) 0.03 (0-0.2) K/uL PT (9.0-12.0) Seconds INR (0.9-1.1) Sodium 137 (136-145) mmol/L Potassium 3.7 (3.5-5.1) mmol/L Chloride 103 (98-107) mmol/L Carbon Dioxide 26 (21-32) mmol/L Anion Gap 8.0 (3-11) BUN 20 H (7-18) mg/dl Creatinine 0.80 (0.6-1.2) mg/dl Est Cr Clr Drug Dosing 70.3 ml/min Est GFR ( Amer) 89.0 Est GFR (Non-Af Amer) 76.8 BUN/Creatinine Ratio 25.6 H (10-20) Glucose 154 H (70-99) mg/dl POC Glucose 105 H (70-99) Calcium 8.8 (8.5-10.1) mg/dl Phosphorus (2.5-4.9) mg/dl Troponin I 1.760 H* (0-0.045) ng/ml 04/11/18 04/11/18 04/10/18 Range/Units 02:27 01:54 21:10 WBC (4.8-10.8) K/uL RBC (4.2-5.4) M/uL Hgb (12.0-16.0) g/dL Hct (37-47) % MCV (80-100) fL MCH (25-34) pg MCHC (32-36) g/dL RDW Std Deviation (36.4-46.3) fL RDW Coeff of Barrett (11.5-14.5) % Plt Count (130-400) K/uL MPV (7.4-10.4) fL Immature Gran % (Auto) % Neut % (Auto) % Lymph % (Auto) % [place] % (Auto) % Eos % (Auto) % Baso % (Auto) % Immature Gran # (Auto) (0.00-0.02) K/uL Neut # (Auto) (1.4-6.5) K/uL Lymph # (Auto) (1.2-3.4) K/uL [facility] # (Auto) (0.11-0.59) K/uL Eos # (Auto) (0-0.5) K/uL Baso # (Auto) (0-0.2) K/uL PT 10.0 (9.0-12.0) Seconds INR 1.0 (0.9-1.1) Sodium 138 (136-145) mmol/L Potassium 3.5 (3.5-5.1) mmol/L Chloride 107 (98-107) mmol/L Carbon Dioxide 26 (21-32) mmol/L Anion Gap 5.0 (3-11) BUN 24 H (7-18) mg/dl Creatinine 0.80 (0.6-1.2) mg/dl Est Cr Clr Drug Dosing 70.2 ml/min Est GFR ( Amer) 89.0 Est GFR (Non-Af Amer) 76.8 BUN/Creatinine Ratio 30.2 H (10-20) Glucose 68 L (70-99) mg/dl POC Glucose 78 (70-99) Calcium 8.9 (8.5-10.1) mg/dl Phosphorus 4.2 (2.5-4.9) mg/dl Troponin I 2.180 H* (0-0.045) ng/ml Medications Administered Current Inpatient Medications Acetaminophen (Tylenol) 650 mg PO Q4H PRN PRN Reason: PAIN 1-3 Stop: 05/11/18 13:14 Acetaminophen/Codeine Phosphate (Tylenol W/Codeine #3) 1 tab PO Q4H PRN PRN Reason: Pain Stop: 05/11/18 15:28 Last Admin: 04/11/18 20:28 Dose: 1 tab Aspirin (Ecotrin Ectab) 81 mg PO DAILY PETROS Stop: 05/11/18 08:59 Last Admin: 04/11/18 08:00 Dose: 81 mg Buspirone HCl (Buspar) 5 mg PO TID PETROS Stop: 05/11/18 01:45 Last Admin: 04/11/18 20:13 Dose: 5 mg Dextrose (Dextrose 50%) 25 - 50 ml IV UD PRN; Protocol PRN Reason: Hypoglycemia Protocol Stop: 05/11/18 01:45 Docusate Sodium (Colace) 100 mg PO BID [facility] Stop: 05/11/18 08:59 Last Admin: 04/11/18 20:10 Dose: 100 mg Enoxaparin Sodium (Lovenox) 40 mg SQ Q24H PETROS Stop: 05/11/18 07:59 Last Admin: 04/11/18 07:59 Dose: 40 mg Glucagon (Glucagen) 1 mg SQ UD PRN; Protocol PRN Reason: Hypoglycemia Protocol Stop: 05/11/18 01:45 Glucose (Dex4 Glucose) 4 - 8 tabs PO UD PRN; Protocol PRN Reason: Hypoglycemia Protocol Stop: 05/11/18 01:45 Glucose (Glucose 40%) 15 - 30 gm PO UD PRN; Protocol PRN Reason: Hypoglycemia Protocol Stop: 05/11/18 01:45 Insulin Aspart (Novolog Flexpen) 0 units SC ACHS [facility] Stop: 04/16/18 16:29 Last Admin: 04/11/18 20:20 Dose: 10 units Insulin Glargine (Lantus Solostar Pen) 40 units SQ QPM [facility] Stop: 05/11/18 20:59 Last Admin: 04/11/18 20:20 Dose: 40 units Loratadine (Claritin) 10 mg PO HS [facility]ROS Stop: 05/11/18 20:59 Last Admin: 04/11/18 20:11 Dose: 10 mg Metoprolol Succinate (Toprol Xl) 25 mg PO QAM [facility] Stop: 05/11/18 15:29 Last Admin: 04/11/18 15:58 Dose: 25 mg Miscellaneous (Carbohydrates For Hypoglycemia) 15 - 30 gm PO UD PRN PRN Reason: Hypoglycemia Treatment Stop: 05/11/18 01:45 Ondansetron HCl (Zofran) 4 mg IV Q6H PRN PRN Reason: Nausea Stop: 05/11/18 01:45 Oxycodone HCl (Roxicodone Immediate Rel) 5 mg PO DAILY PRN PRN Reason: Pain Stop: 04/25/18 01:45 Last Admin: 04/11/18 02:34 Dose: 5 mg Pantoprazole Sodium (Protonix) 40 mg PO QAM [facility] Stop: 05/11/18 08:59 Last Admin: 04/11/18 08:00 Dose: 40 mg Ranitidine HCl (Zantac) 150 mg PO BID [facility] Stop: 05/11/18 08:59 Last Admin: 04/11/18 20:13 Dose: 150 mg Rosuvastatin Calcium ([facility]restor) [facility] [place] Stop: 05/11/18 08:59 Last Admin: 04/11/18 08:00 Dose: 20 mg Venlafaxine HCl (Effexor Extended Release) 150 mg PO QAM [facility] Stop: 05/11/18 08:59 Last Admin: 04/11/18 08:00 Dose: 150 mg Resident Activity Tracking Resident Involvement: Resident Care Provided Care Provided: [facility] _ (1) Chronic pain Chronic pain type: other chronic pain Qualified Code(s): G89.29 - Other chronic pain (2) DM type 2 (diabetes mellitus, type 2) Chronic kidney disease stage: Diabetes mellitus complication detail: Diabetes mellitus complication status: without complication Diabetes mellitus inspector automatic typewriter insulin use: with inspector automatic typewriter use Diabetes mellitus macular edema: Diabetic retinopathy severity: Laterality: Proliferative retinopathy type: Qualified Code(s): E11.9 - Type 2 diabetes mellitus without complications; Z79.4 - nursing home (current) use of insulin (3) GERD (gastroesophageal reflux disease) Esophagitis presence: esophagitis presence not specified Qualified Code(s): K21.9 - Gastro-esophageal reflux disease without esophagitis (4) Hypertension Hypertension type: essential hypertension Qualified Code(s): I10 - Essential (primary) hypertension
[2018-04-12] MEDS: ACETAMINOPHEN W/CODEINE #3 1 TAB PO PRN ×3 (00:26→08:40)
[2018-04-12 05:47] LABS: Basophils # (auto) 0.05 K/uL (0-0.2); Basophils % (auto) 0.7 %; Eosinophils # (auto) 0.22 K/uL (0-0.5); Hematocrit (blood only) 38.3 % (37-47); Hemoglobin 12.5 g/dL (12.0-16.0); Immature Granulocytes # (auto) 0.01 K/uL (0.00-0.02); Immature Granulocytes % (auto) 0.1 %; Lymphocytes # (auto) 2.26 K/uL (1.2-3.4); Lymphocytes % (auto) 31.3 %; Mean Corpuscular Hgb Conc 32.6 g/dL (32-36); Mean Corpuscular Volume 86.5 fL (80-100); Mean Platelet Volume 9.5 fL (7.4-10.4); Monocytes # (auto) 0.53 K/uL (0.11-0.59); Monocytes % (auto) 7.3 %; Neutrophils # (auto) 4.15 K/uL (1.4-6.5); Neutrophils % (auto) 57.6 %; Platelet Count 222 K/uL (130-400); RDW Coefficient of Variation 13.1 % (11.5-14.5); Red Blood Count 4.43 M/uL (4.2-5.4); White Blood Count 7.22 K/uL (4.8-10.8)
[2018-04-12 06:24] LABS: BUN Creatinine Ratio 18.6 (10-20); Calcium 9.4 mg/dl (8.5-10.1); Est GFR (African American) 72.3; Est GFR (Non-African American) 62.4; Potassium 4.5 mmol/L (3.5-5.1)
[2018-04-12] MEDS: DOCUSATE SODIUM 100 MG CAP PO SCH (07:42)
[2018-04-12] MEDS: PANTOprazole 40 MG TAB PO SCH (07:42)
[2018-04-12] MEDS: VENLAFAXINE HCL XR 150 MG CAPXR PO SCH (07:42)
[2018-04-12] MEDS: ROSUVASTATIN CALCIUM 20 MG TAB PO SCH (07:42)
[2018-04-12] MEDS: ASPIRIN 81 MG ECTAB PO SCH (07:43)
[2018-04-12] MEDS: ENOXAPARIN INJ 40 MG/0.4 ML SYR SQ SCH (07:43)
[2018-04-12] MEDS: METOPROLOL SUCC 25MG EXT REL TAB PO SCH (07:43)
[2018-04-12] MEDS: INSULIN ASPART 100 UNITS/ML 3 ML PEN SC SCH ×2 (07:50→13:06)
[2018-04-12] MEDS: OXYCODONE HCL IR 5 MG TAB (IMMEDIATE RELEASE) PO PRN (12:40)
--- NOTE | 2018-04-12 14:52 | Discharge Summary ---
Date of Service April 12, 2018 Admission HPI Per Admitting Provider Patient is a 67yo C female with history of DM on insulin, HLP, GERD and Anxiety presenting with elevated troponin. Patient reports that on Sunday04/08/18 she had some hot flashes with chills and two episodes of non-bloody/non-bilious vomiting and abdominal pain. Also had a feeling of pressure in her chest and an episode of mild confusion which rapidly resolved. Her symptoms resolved quickly, however, she reports that she has been feeling quite anxious since. She was seen by her PCP today for the complaint of persistent anxiety. During the exam a new systolic murmur was appreciated. Labs were drawn and the patient was to be set up for an echocardiogram. Patient's troponin came back elevated at > 3 therefore she was contacted by Dr. Kay and instructed to come to the ER. Patient reports no additional episodes of chest heaviness or pain. She has occasional palpitations which she associates with her blood sugar being low. Denies dizziness, confusion or loss of consciousness. She does report a stable SORENSON that she feels has been present and unchanged for "months to years". She states that after climbing a flight of stairs she is extremely short of breath as if she "climbed a mountain". To her knowledge she has no history of CAD, has never had a heart attack, arrhythmia or CHF. She does report having a stress test in the past but does not recall when. No additional complaints at this time. ER Course: ASA 324mg, Ativan 1mg IV Principal Diagnosis NSTEMI, Cardiomyopathy Discharge Exam Constitutional WD/WN, vitals as above comfortable; no acute distress Eyes PERRL, conjunctivae normal, anicteric sclerae ENMT external ear and nose normal, oropharynx normal Neck normal visual inspection Respiratory normal respiratory effort, lungs clear to auscultation Cardiovascular Rate/Rhythm: regular rate and regular rhythm Heart Sounds: normal S1, normal S2 and + murmur (soft systolic murmur at lower apex) Palpation: normal PMI Vessels: no JVD and no carotid bruit Extremities: normal capillary refill; no calf tenderness and no edema Gastrointestinal (Abdomen) normal bowel sounds, soft, nontender, no hepatosplenomegaly Musculoskeletal Extremities: extremities normal to inspection Skin no rashes, warm and dry Neurologic moves all extremities; no focal motor deficits Psychiatric A+Ox3, euthymic affect Lymphatic no cervical lymphadenopathy Discharge Data Allergies Allergy/AdvReac Type Severity Reaction Status Date / Time No Known Allergies Allergy Verified 04/10/18 22:48 Consultations 04/10/18 23:23 ED Decision to Admit Stat 04/11/18 07:40 Consult Cardiology Routine 04/12/18 12:34 Consult [facility] aircraft time clerk Routine Procedures Performed Operation Date: 04/11/18 11:30 Actual Procedures p Cath, Left with Cors and Vent - Yaya Jennings MD s Cineradiography w/Routine Exam - Yaya Jennings MD Ordered Studies 04/10/18 21:13 CT angio chest PE protocol Stat 04/11/18 11:31 CL Cath Imgs for PACS use only Urgent Hospital Course (1) Cardiomyopathy: (2) GERD (gastroesophageal reflux disease): (3) Chronic pain: (4) Anxiety: (5) Dyslipidemia: (6) Hypertension: (7) DM type 2 (diabetes mellitus, type 2): Elevated troponin/NSTEMI/Cardiomyopathy Trops peaked prior to arrival and trended trended down. Nonspecific ST changes on EKG. New murmur is concerning. Patient does not appear to be volume overloaded or in florid CHF at this time. Echocardiogram shows global hypokinesis, EF 25-30%. Catheterization revealed normal coronary arteries. PR likely from vasospasm. -Started ASA 81mg and metoprolol 50mg po daily, continue Crestor 20mg po daily -Follow up with cardiology DM type 2 HbAIC 9.7 -Continue metformin + Lantus 40 u qHS and Humalog 17u with breakfast, 12u with lunch and 13u with dinner -Follow up with PCP re: further optimization of DM control Hypertension -BPs well controlled -Metoprolol added for crdioprotective benefits. -Follow up with PCP and consider adding GARTH/ARB if BP and HR allow Dyslipidemia -Chronic, Continue Crestor Anxiety -Continue Buspirone 5mg po TID and Effexor 150mg po daily Chronic pain -Continue home meds Seasonal allergies -Continue Claritin GERD -Chronic, symptoms well controlled. Continue Nexium and Zantac Ppx - Lovenox for DVT prophylaxis Code - Full per discussion with patient Total Time Total Time Spent Total Time Spent (In Minutes): 20 Total Time Includes: Examination of the Patient, Discharge Planning and Medication Reconciliation Discharge Plan Discharge Items Patient Disposition: Home - Self-Care Reason For Visit: ELEVATED TROPONIN Discharge Diagnosis: Heart Attack, cardiomyopathy Condition: Good Discharge Goals: Decrease discomfort, Increase independence and Therapeutic intervention Activity: Resume your previous activity Non-emergency contact: Primary Care Provider and Mason Foreman/Superintendant Call non-emergency contact if: your symptoms worsen Diet: Carb Consistent or DM2 and Heart Healthy Addtl Provider Instructions: You were admitted to the hospital with an elevated troponin (heart muscle protein that leaks into the blood when the heart is strained) that was worrisome of a heart attack. Though no artery was blocked was noted during the cardiac catheterization, it was noted on echo that your heart is not squeezing as well. On discharge, we have added 2 new medications: a baby aspirin and metoprolol ( controls heart rate), both of which need to be taken daily. Continue all other medication as previous, unless otherwise instructed by your providers at the follow up appointment. Follow up with your PCP and packaging line attendant will be arranged for you. If you are not provided an appointment time by Sunday, April 15, 2018, please call their offices, or the hospital to verify scheduling. During follow up, you may want to discuss improved diabetes control, as well as cholesterol and blood pressure management. Seek medical care urgently if similar/worsening chest pain/pressure symptoms recur. Prescriptions: New metoprolol succinate 25 mg Tablet Extended Release 24 Hr 25 mg PO QAM Qty: 30 RF: 1 aspirin [Ecotrin Low Strength] 81 mg Tablet,Delayed Release (Dr/Ec) 81 mg PO DAILY Qty: 30 RF: 1 Continue buspirone 5 mg Tablet 5 mg PO TID RF: 0 insulin glargine [Lantus U-100 Insulin] 100 unit/mL Solution 42 unit SUBCUT QPM RF: 0 venlafaxine [Effexor XR] 150 mg Capsule,Extended Release 24hr 150 mg PO QAM RF: 0 metformin 1,000 mg Tablet 1,000 mg PO BID RF: 0 esomeprazole magnesium [Nexium] 40 mg Capsule,Delayed Release(Dr/Ec) 40 mg PO QAM RF: 0 insulin lispro [Humalog KwikPen Insulin] 100 unit/mL Insulin Pen 1 dose SUBCUT UD RF: 0 rosuvastatin 20 mg Tablet 20 mg PO QAM RF: 0 celecoxib [Celebrex] 200 mg Capsule 200 mg PO BID Qty: 60 RF: 0 oxycodone [OxyContin] 10 mg Tablet,Oral Only,Ext.Rel.12 Hr 10 mg PO BID Qty: 20 RF: 0 oxycodone 5 mg Tablet 5 - 10 mg PO Q4H PRN (Reason: pain) Qty: 60 RF: 0 ondansetron HCl [Zofran] 8 mg tablet 8 mg PO Q8H PRN (Reason: nausea and vomiting) Qty: 20 RF: 0 ranitidine HCl [Zantac] 150 mg tablet 150 mg PO BID Qty: 60 RF: 0 loratadine [Claritin] 10 mg tablet 10 mg PO DAILY Qty: 30 RF: 0 diphenhydramine HCl [Benadryl] 25 mg capsule 25 mg PO Q6H Qty: 60 RF: 0 Stand-Alone Forms: [facility] Discharge Orders: Discharge Order (Routine); Ordered 04/12/18 Ordered By: Cindi Metcalf Admission Data Admit Date/Time: 04/11/18 00:27 Attending Provider: Shelly Rain Admit Provider: Shelly Rain Primary Care Provider: Ashlee Wan Other Providers: Shelly Rain ; Mack Nayak Service: Telemetry Medical Other Interventions: Discharge Summary Assessment (RN) Last Done: 04/12/18 15:19 DC Date/Time DO NOT enter until pt leaves facility: 04/12/18 16:40 Supervising Physician Co-Signing Physician Notes Resident Physician Supervision Note: I independently interviewed and examined the patient and verified the whatley history and physical, reviewed labs and image studies, discussed the case with the resident Dr. Metcalf and agree with the findings and care plan. Time spent in discharge 35 min Resident Activity Tracking Resident Involvement: Resident Care Provided Care Provided: Adult Hospital Medicine
--- NOTE | 2018-04-12 17:59 | Cardiology Progress Note ---
Date of Service April 12, 2018 Assessment & Plan (1) Elevated troponin: She had some fevers/chills, diaphoresis, vomiting, and an episode of chest pain earlier this week. She subsequently saw her PCP yesterday, and an outpatient troponin was drawn that was elevated at 3.49. Her troponin has since trended downward. ECG on arrival to the ED yesterday showed inferior T wave abnormality, which have now resolved. Echocardiogram shows large area of hypokinesis involving the entire apex and mid to distal anterior, anteroseptum, lateral, inferior and posterior brown. Her LV systolic function is moderate to severely reduced with an EF of 25-30%. Given the concerning nature of her symptoms earlier this week, elevated troponin, and abnormal echocardiogram, recommend proceed with cardiac catheterization for further evaluation. Will discuss with patient to see if she is agreeable to undergoing the study. Would keep her NPO for the time being. (2) Cardiomyopathy: Her echo showed an EF of 25-30% and wall motion abnormalities as noted above. This is a new finding compared to a prior echo in December 2016. Recommend cardiac catheterization as noted above. Patient would also benefit from the addition of a beta claudio and GARTH/ARB if heart rate and blood pressure will allow. (3) Dyslipidemia: Continue statin therapy. Patient was discussed with Dr. Jennings who will also be in to see the patient later this morning, and will further discuss cardiac catheterization with the patient at that time. Subjective This morning patient claims to be feeling well. She was some concern about some bruising on her right forearm but has no pain at that site. She has been ambulatory to the bathroom without chest pain or dizziness. She has not report significant dyspnea and overall is feeling well. Physical Exam 2 Vital Signs (Past 24 Hours): Last Vital Signs Temp 36.6 C 04/12/18 15:19 Pulse 82 04/12/18 15:19 Resp 16 04/12/18 15:19 BP 89/55 L 04/12/18 15:19 Pulse Ox 96 04/12/18 15:19 Physical Exam: She is alert and oriented x3. Mood affect appear normal. She answered all questions appropriately. HEENT: Sclerae are anicteric. Pupils are equal and reactive to light and accommodation. Extraocular movements were intact. Neuro: Cranial nerves intact Neck: Examination of the submandibular region did not reveal any significant lymphadenopathy. Carotids are palpable bilaterally and free of bruits on auscultation. There was no evidence of jugular venous distention. The thyroid was not enlarged. Lungs: Lungs are clear to auscultation bilaterally. There are no rales wheezes or rhonchi. She has normal respiratory effort without use of accessory muscles. There is normal pulmonary excursion. Cardiac: The rhythm was regular. S1 and S2 were normal. Systolic murmur appreciated. The PMI was not markedly displaced on palpation. Abdomen: The abdomen was soft and nontender. Extremities: Patient has bilateral radial pulses that are equal in intensity. The hands are warm. There is some mild ecchymosis along the inner aspect of the left forearm There is no evidence cyanosis or clubbing. There was no evidence of significant peripheral edema bilaterally. Skin: There are no rashes noted on examination today. Results & Data Laboratory Results Abnormal Lab Results 04/11/18 04/12/18 04/12/18 20:17 05:32 05:32 WBC 7.22 RBC 4.43 Hgb 12.5 Hct 38.3 MCV 86.5 MCH 28.2 MCHC 32.6 RDW Std Deviation 42.0 RDW Coeff of Barrett 13.1 Plt Count 222 MPV 9.5 Immature Gran % (Auto) 0.1 Neut % (Auto) 57.6 Lymph % (Auto) 31.3 [place] % (Auto) 7.3 Eos % (Auto) 3.0 Baso % (Auto) 0.7 Immature Gran # (Auto) 0.01 Neut # (Auto) 4.15 Lymph # (Auto) 2.26 [place] # (Auto) 0.53 Eos # (Auto) 0.22 Baso # (Auto) 0.05 Sodium 138 Potassium 4.5 D Chloride 102 Carbon Dioxide 28 Anion Gap 8.0 BUN 18 Creatinine 0.95 Est Cr Clr Drug Dosing 59.0 Est GFR ( Amer) 72.3 Est GFR (Non-Af Amer) 62.4 BUN/Creatinine Ratio 18.6 Glucose 234 H POC Glucose 241 H Calcium 9.4 04/12/18 04/12/18 07:32 11:03 WBC RBC Hgb Hct MCV MCH MCHC RDW Std Deviation RDW Coeff of Barrett Plt Count MPV Immature Gran % (Auto) Neut % (Auto) Lymph % (Auto) [place] % (Auto) Eos % (Auto) Baso % (Auto) Immature Gran # (Auto) Neut # (Auto) Lymph # (Auto) [place] # (Auto) Eos # (Auto) Baso # (Auto) Sodium Potassium Chloride Carbon Dioxide Anion Gap BUN Creatinine Est Cr Clr Drug Dosing Est GFR ( Amer) Est GFR (Non-Af Amer) BUN/Creatinine Ratio Glucose POC Glucose 294 H 288 H Calcium
--- NOTE | 2018-04-16 09:35 | Cardiac Catheterization ---
Date of Service April 11, 2018 Cardiac Cath Report Cardiac Cath Report Procedure performed: Cardiac catheterization Staff curing supervisor: Aubrey Jennings MD Indication: Patient is a 67-year-old woman without a known history of coronary disease who presented with evidence of reduced LV systolic function and elevated cardiac biomarkers. She was felt to be a good candidate for coronary angiography in order to exclude significant coronary disease and recent non ST elevation myocardial infarction. Procedure in detail: The patient was informed of the risks benefits and alternatives to the intended procedure, he understood such and wished to proceed. He was taken to the cardiac catheterization suite in a fasting state. Conscious sedation was administered per protocol and the patient was monitored electrocardiographically throughout today's procedure. The right wrist area was prepped and draped in usual sterile fashion. This area was anesthetized using subcutaneous administration of a lidocaine solution. The right radial artery was then accessed using Seldinger technique, and a arterial sheath was placed at this site over a guidewire. The patient is left subclavian artery entered the ascending aorta at an odd angle which made transitioning to the ascending aorta and aortic root extremely difficult. After multiple attempts at correcting the catheter to the aortic root, the catheter and right radial artery sheath were removed and hemostasis was achieved at the access site using manual pressure. The left radial artery was then prepped and draped in the usual sterile fashion. This artery was subsequently access using Seldinger technique and a sheath was placed over guidewires at this site. This sheath was then used to facilitate passage of the cardiac catheters under fluoroscopic guidance. Coronary angiograms was then obtained in multiple orthogonal views prior to removal of the catheter. Left heart catheterization was also performed. At the conclusion of the procedure the sheath was removed and hemostasis was achieved at the access site using manual pressure. The patient tolerated procedure well, there were no immediate complications. Equipment used: 5 [place] a L2, 5 [place] JR4 Findings: Opening aortic pressure: 110/66 millimeters of mercury Left ventricular pressure: 106/7 millimeters of mercury Left ventricular end-diastolic pressure 19 millimeters of mercury Closing aortic pressure 106/54 millimeters of mercury Coronary angiography: Left main: Left main coronary is normal in size and caliber and bifurcated normally into the left anterior descending left circumflex artery. No significant disease in this vessel Left anterior descending: Left anterior descending artery was large transapical vessel. It produced essentially 1 large diagonal branch in its proximal portion which bifurcated immediately. There is approximately 30 percent stenosis just prior to the takeoff of this large diagonal system. There is no other obstructive disease in this vessel. Left circumflex: Left circumflex artery was a large codominant system. It produced an early high OM and 2 additional obtuse marginal branches. There is no obstructive disease in this distribution Right coronary artery: Right coronary artery was normal in size and caliber. There were luminal irregularities without discrete stenoses. Impression: Difficult right radial access requiring left radial access for coronary angiography Normal coronary anatomy without obstructive coronary disease Mildly elevated left ventricular end-diastolic pressure No evidence of aortic stenosis
== END 2018-04-12 16:40 | disposition home or self-care (01) ==
LOC: ED 19:44 → 2N 19:44 → 2S 04-11 13:34

== ENCOUNTER 2021-02-20 13:17 | Inpatient (IN) ==
[2021-02-20] MEDS ORDERED: OPTIRAY 320 100ml IV ONE (13:23)
[2021-02-20] MEDS ORDERED: MoRPHine SULFATE 4 MG/ML 1 ML CARP\\VIAL IV PRN (13:27)
[2021-02-20] MEDS ORDERED: ceFAZolin 2000MG 2,000 MG/15 ML SYR IV STA (13:27)
[2021-02-20] MEDS ORDERED: ONDANSETRON INJ 2 MG/ML 2 ML VIAL IV STA (13:27)
--- NOTE | 2021-02-20 13:32 | CT Scan Report ---
CT head/brain wo con CLINICAL HISTORY: Status post fall with left-sided facial pain COMPARISON STUDY: 11/19/2019 TECHNIQUE: Standard CT of the Brain was performed without IV contrast. A dose lowering technique was utilized adhering to the principles of ALARA. FINDINGS: Extraaxial space: There is no evidence for subdural hematoma. There are no extra-axial fluid collecti ons. Ventricles and cisterns: The ventricles are again mildly to moderately dilated bilaterally. There is no evidence for midline shift or mass effect. Parenchyma: There is no subarachnoid or intraparenchymal hemorrhage. There is no evidence for an acu te infarct or cerebral edema. There is mild cerebral cortical atrophy and decreased attenuation in th e periventricular white matter representing remote small vessel disease. There are no gross mass lesi ons. Osseous structures: There are nasal bone fractures present. There is no evidence for an acute fractur e. There is a fluid level in the left maxillary antrum. The remaining visualized paranasal sinuses ar e clear. The mastoid air cells are clear bilaterally. Soft tissues: There is no evidence for focal soft tissue swelling. IMPRESSION: No acute intracerebral pathology. Mild cerebral cortical atrophy and remote small vessel disease are again seen. Multiple nasal bone fractures and fluid level within the left maxillary antru m are present. Please see CT facial bones for further evaluation. ACT 112: Negative or not required by law. Electronically signed by: Kirk Sosa M.D. 02/20/2021 1:31 PM
--- NOTE | 2021-02-20 13:40 | Emergency Department Note ---
Impression & Plan Fracture closed, nasal bone, Acute anterior epistaxis, C6 cervical fracture, Fall, Contusion of face ED Provider Note NAME: PAUL PERSON AGE: 70 SEX: F : 1950 ARRIVES VIA: Ambulance INFORMANT: Patient, EMS personnel ED PROVIDER(S): Cody Gutierrez DO CHIEF COMPLAINT: Fall HPI: The patient is a 70-year-old female who presented to the emergency department for an evaluation of injury to her face. The patient arrived via ALS. The patient was walking this morning and trying to manage her dog when she fell forward walking up a hill. She struck her face. She was found to have very significant trauma and was found to have elevated blood sugar by the prehospital personnel. I did receive a prehospital notification about the patient. Orders were placed and she was taken directly to CT for trauma evaluation. Initially the patient's oxygen saturation was low. This improved with supplemental oxygen. She states initially she had a very severe nosebleed which stopped spontaneously. She complains of a headache as well as facial pain. She also states that she has dental pain. She denies having any chest pain or difficulty breathing. She was able to ambulate. She does not take oral anticoagulation that she is aware of. She does live locally but was watching a friend's dog today. ROS: See above HPI for pertinent positives & negatives. A total of 10 systems reviewed and were otherwise negative. PAST MEDICAL HISTORY: See Below PAST SURGICAL HISTORY: See Below FAMILY HISTORY: See Below SOCIAL HISTORY: See Below HOME MEDICATIONS: See Below ALLERGIES: See Below VITALS: See Below PHYSICAL EXAMINATION: GENERAL: The patient is awake and alert. The patient is very anxious appearing. EYES: The conjunctivae are clear. The pupils are round and reactive. Raccoon eyes are noted. EARS, NOSE, MOUTH AND THROAT: There is significant facial swelling and periorbital ecchymosis noted. There is tenderness over the bridge of the nose. There is also tenderness with palpation over the maxilla. Clotted blood is noted at both nares. There is no septal hematoma appreciated. NECK: Rigid cervical collar was placed prior to arrival. It remains in place. RESPIRATORY: Diminished breath sounds noted throughout. There is no tachypnea or conversational dyspnea. CARDIOVASCULAR: Regular rate and rhythm was noted to auscultation. Systolic murmur was suggested. GASTROINTESTINAL: The abdomen is soft. Abdomen is nontender. BACK: No midline tenderness or or step-off noted range of motion in flexion extension as well as rotation no signs of muscle spasm noted MUSCULOSKELETAL/EXTREMITIES: There is no evidence of gross deformity full range of motion is noted in the hips and shoulders. SKIN: Skin is warm and dry. There is no significant pedal edema noted. NEUROLOGIC: Patient is awake alert and oriented x3 strength is symmetric patellar reflexes are 2+ bilaterally MEDICAL DECISION MAKING: The patient is a 70-year-old female who presented to the emergency department after a fall. The patient had a very significant fall on her face had facial contusion and facial swelling. There was concern for a [place] fracture. The patient was initially hypoxic. When she was placed on submental oxygen she was able to clear her secretions and did much better. The patient appears to have signs of nasal bone fracture on radiographic studies. She does have some fluid in her sinus but this was not felt to be a facial bone injury otherwise or blood in the sinus. She also has a C6 fracture which appears to be stable. I discussed the patient's laboratory and radiographic studies with her. She was treated with pain medication as well as antibiotics. Given her difficulty breathing I discussed her case with the on-call ENT physician as well as orthopedic spine. I also discussed this case with the [facility] hospitalist group. They have agreed to evaluate the patient in the emergency department for further management and disposition. Triage Nursing notes reviewed. Prior medical records reviewed Vital Signs: reviewed and remarkable for no significant abnormalities Differential diagnosis: Fracture, dislocation, contusion, intra-abdominal, pneumothorax, intrathoracic, intracranial, neurologic, compartment syndrome, rhabdomyolysis, as well as other pathologies. ER treatment provided: See below Diagnostics interpreted by me: ECG: EKG was obtained in the emergency department. My interpretation is normal sinus rhythm at 77 bpm. There is no ectopy. Inferior Q waves were noted. This was compared to a tracing from April 11, 2018. No specific changes were noted. Cardiac Monitoring: An order was placed for continuous cardiac monitoring. The monitor shows a rate of 83 bpm with sinus rhythm. Laboratory studies: As stated above and show below. Imaging studies: See below Consultation(s): I discussed this case with Dr. Connor who is on-call for ear nose and throat. I discussed the patient's radiographic studies with him. He does not feel the patient would require emergency surgery and will likely require follow-up as an outpatient when the swelling is improved and the cervical spine fracture has been stabilized. I discussed his case with Dr. Kirkland who is on-call for orthopedic spine. He will evaluate the patient in consultation if needed. I discussed this case with Dr. Herrera who is on-call for the [facility] hospitalist group. They have agreed to evaluate the patient in the emergency department for further management and disposition. Past Med/Surg History Medical History Anxiety Cardiomyopathy Chronic osteoarthritis Depression Diabetic peripheral neuropathy associated with type 2 diabetes mellitus Dysesthesia Dyslipidemia Frequent falls Gastroparesis GERD (gastroesophageal reflux disease) Hiatal hernia Small Hypertension Lumbar radiculopathy Mixed conductive and sensorineural hearing loss of both ears NSTEMI (non-ST elevated myocardial infarction) Pancreatic cyst [facility] Perianal abscess Urinary incontinence Venous insufficiency (chronic) (peripheral) Vitamin D deficiency Vitiligo Surgical History History of total knee replacement RT TKA APPROX 15 YEARS AGO L TKA 01/23/2018 Hx of cardiac cath Mar 2018. Normal coronary arteries. Family History Mother Hypertension Father Breast cancer Family/Other Breast cancer Unknown Osteoarthritis Denies family history of Ovarian cancer Prostate cancer Colorectal cancer Lung disease Social History Smoking Status: Never smoker Second Hand Exposure: No; Hx Alcohol Use: No Hx Substance Use: No Preferred Language: Austrian Communication Ability: Effective Visual Impairment: Diminished Hearing Ability: Normal Green Hide Inspector Required: No Beliefs That Will Affect Care: None marital status: Current Living Situation: Family Current Living Situation Comment: RESIDES WITH MOTHER current occupational status: disabled Feels Safe at Home: Yes Childhood Exposure to Second-Hand Smoke: No caffeine: Yes Dental Care, Regularly: Yes Physical Activity Frequency: 3-4 Times per Week Physical Activity Frequency Comment: walk Seatbelt Use: always Sunscreen Use: No (not in the sun) Do you think of yourself as: straight/heterosexual Assistive Devices: Glasses Allergies Allergies Allergy/AdvReac Type Severity Reaction Status Date / Time No Known Allergies Allergy Verified 02/20/21 14:07 Home Meds Home Medications Medication Instructions Recorded Confirmed blood-glucose meter (OneTouch #1 ea 10/29/18 01/17/21 UltraMini) cholecalciferol (vitamin D3) 50 2,000 units PO DAILY 11/08/18 02/20/21 mcg (2,000 unit) capsule cyanocobalamin (vitamin B-12) 1,000 mcg PO DAILY 11/08/18 02/20/21 1,000 mcg tablet cyclobenzaprine 10 mg tablet 10 mg PO TID PRN tab 12/12/19 02/20/21 insulin lispro 100 unit/mL 0 unit SUBCUT TID ml 09/23/20 02/20/21 subcutaneous pen (Humalog KwikPen (U-100) Insulin) insulin glargine 100 unit/mL (3 44 unit SQ QPM ml 11/25/20 02/20/21 mL) subcutaneous pen (Lantus Solostar U-100 Insulin) venlafaxine 150 mg 150 mg PO DAILY 02/20/21 02/20/21 capsule,extended release 24 hr Previous Rx's Medication Instructions Recorded aspirin 81 mg tablet,delayed 81 mg PO DAILY #90 tab 06/23/19 release pen needle, diabetic 32 gauge x #200 ea 01/29/20" (BD Ultra-Fine Marleny Pen Needle) lisinopril 2.5 mg tablet 2.5 mg PO QAM #90 tab 04/06/20 albuterol sulfate 90 mcg/actuation 2 puff INH Q4H PRN #8.5 g 06/24/20 aerosol inhaler (ProAir HFA) ondansetron 8 mg disintegrating 8 mg PO Q8H PRN #42 tab 07/23/20 tablet gabapentin 300 mg capsule 300 mg PO TID #90 cap 08/09/20 amoxicillin 500 mg capsule See Rx Instructions PO .COMPLEX 08/19/20 #16 cap OneTouch Ultra Blue Test Strip #300 ea NS 09/13/20 (blood sugar diagnostic) metformin 1,000 mg tablet 1,000 mg PO BID #180 tab 09/14/20 rosuvastatin 20 mg tablet 20 mg PO QAM #90 tab 10/12/20 diclofenac sodium 75 mg 75 mg PO BID #60 tab 10/20/20 tablet,delayed release esomeprazole magnesium 40 mg 40 mg PO QAM #90 cap 12/06/20 capsule,delayed release (Nexium) buspirone 15 mg tablet 15 mg PO TID #90 tab 01/31/21 Results & Data (ED) Vital Signs Vital Signs - 24 hr 02/20/21 13:17 02/20/21 13:47 02/20/21 14:00 Temperature 36.5 C Temperature Source Oral Pulse Rate 80 80 77 Pulse Rate [Right Finger] Pulse Rate from SpO2 Sensor 77 Pulse Rhythm Regular Regular Respiratory Rate 12 12 13 Respiratory Effort / Characteristics Non-Labored Respiratory Depth Normal Respiratory Pattern Regular Blood Pressure 113/51 L 102/57 L Blood Pressure Mean 71 72 Pulse Oximetry 95 95 95 Oxygen Delivery Method Room Air Room Air Room Air Sepsis Recent Fever Within 48 Hours No Sepsis New/Unexplained Change in Mental Status No Sepsis Action Taken by Nursing No Action Required 02/20/21 14:30 02/20/21 15:00 02/20/21 16:27 Temperature Temperature Source Pulse Rate 77 82 Pulse Rate [Right Finger] 83 Pulse Rate from SpO2 Sensor 77 82 Pulse Rhythm Respiratory Rate 12 17 16 Respiratory Effort / Characteristics Respiratory Depth Respiratory Pattern Blood Pressure 98/64 L 115/85 Blood Pressure Mean 75 95 Pulse Oximetry 95 98 98 Oxygen Delivery Method Room Air Room Air Room Air Sepsis Recent Fever Within 48 Hours Sepsis New/Unexplained Change in Mental Status Sepsis Action Taken by Long Term Medications Current Medication List: was personally reviewed by me Laboratory Data Attestation: I reviewed the patient's lab results. Result diagrams: 02/20/21 13:25 02/20/21 13:25 Lab Results 02/20/21 02/20/21 02/20/21 Range/Units 13:25 13:25 13:25 WBC 9.90 (4.8-10.8) K/uL RBC 3.66 L (4.2-5.4) M/uL Hgb 10.7 L (12.0-16.0) g/dL POC Hgb (12.0-16.0) g/dl Hct 32.7 L (37-47) % POC Hct (37-47) % MCV 89.3 (80-100) fL MCH 29.2 (25-34) pg MCHC 32.7 (32-36) g/dL RDW Std Deviation 42.0 (36.4-46.3) fL RDW Coeff of Barrett 13.0 (11.5-14.5) % Plt Count 215 (130-400) K/uL MPV 10.1 (7.4-10.4) fL Immature Gran % (Auto) 0.2 % Neut % (Auto) 78.1 % Lymph % (Auto) 14.4 % [place] % (Auto) 6.4 % Eos % (Auto) 0.5 % Baso % (Auto) 0.4 % Neut # (Auto) 7.73 H (1.4-6.5) K/uL Lymph # (Auto) 1.43 (1.2-3.4) K/uL [place] # (Auto) 0.63 H (0.11-0.59) K/uL Eos # (Auto) 0.05 (0-0.5) K/uL Baso # (Auto) 0.04 (0-0.2) K/uL Immature Gran # (Auto) 0.02 (0.00-0.02) K/uL PT 10.4 (9.0-12.0) Seconds INR 1.0 (0.9-1.1) APTT 21.9 (21.0-31.0) Seconds PTT Ratio 0.8 POC Sodium (135-144) mmol/L Sodium 136 (136-145) mmol/L POC Potassium (3.3-5.0) mmol/L Potassium 4.5 (3.5-5.1) mmol/L POC Chloride (101-112) mmol/L Chloride 101 (98-107) mmol/L Carbon Dioxide 27 (21-32) mmol/L POC Total CO2 (24-31) mmol/L Anion Gap 8.0 (3-11) POC Anion Gap (16-25) mmol/L POC BUN (7-18) mg/dl BUN 41 H (7-18) mg/dl Creatinine 1.35 H (0.6-1.2) mg/dl POC Creatinine (0.6-1.3) mg/dl Est Cr Clr Drug Dosing 39.2 ml/min Est GFR ( Amer) 46.3 ml/min Est GFR (Non-Af Amer) 40.0 ml/min BUN/Creatinine Ratio 30.2 H (10-20) Glucose 355 H* (70-99) mg/dl POC Glucose (other) (70-99) mg/dl Calcium 9.2 (8.5-10.1) mg/dl POC Ioniz Calcium Wiley (1.12-1.32) mmol/l Magnesium 1.6 L (1.8-2.4) mg/dl Total Bilirubin 0.5 (0.2-1) mg/dl AST 22 (15-37) U/L ALT 162 H (12-78) U/L Alkaline Phosphatase 247 H (45-117) U/L Total Creatine Kinase 77 (26-192) U/L Troponin I 0.038 (0-0.045) ng/ml Total Protein 6.1 L (6.4-8.2) gm/dl Albumin 2.8 L (3.4-5.0) gm/dl Globulin 3.3 (2.5-4.0) gm/dl Albumin/Globulin Ratio 0.8 L (0.9-2) Beta-Hydroxybutyric Acd 1.24 (0.2-2.81) mg/dl TSH 2.180 (0.300-4.500) uIu/ml SARS-CoV-2, RNA, NAAT (NEGATIVE) 02/20/21 02/20/21 Range/Units 13:33 13:47 WBC (4.8-10.8) K/uL RBC (4.2-5.4) M/uL Hgb (12.0-16.0) g/dL POC Hgb 10.5 L (12.0-16.0) g/dl Hct (37-47) % POC Hct 31 L (37-47) % MCV (80-100) fL MCH (25-34) pg MCHC (32-36) g/dL RDW Std Deviation (36.4-46.3) fL RDW Coeff of Barrett (11.5-14.5) % Plt Count (130-400) K/uL MPV (7.4-10.4) fL Immature Gran % (Auto) % Neut % (Auto) % Lymph % (Auto) % [place] % (Auto) % Eos % (Auto) % Baso % (Auto) % Neut # (Auto) (1.4-6.5) K/uL Lymph # (Auto) (1.2-3.4) K/uL [place] # (Auto) (0.11-0.59) K/uL Eos # (Auto) (0-0.5) K/uL Baso # (Auto) (0-0.2) K/uL Immature Gran # (Auto) (0.00-0.02) K/uL PT (9.0-12.0) Seconds INR (0.9-1.1) APTT (21.0-31.0) Seconds PTT Ratio POC Sodium 136 (135-144) mmol/L Sodium (136-145) mmol/L POC Potassium 4.6 (3.3-5.0) mmol/L Potassium (3.5-5.1) mmol/L POC Chloride 98 L (101-112) mmol/L Chloride (98-107) mmol/L Carbon Dioxide (21-32) mmol/L POC Total CO2 26 (24-31) mmol/L Anion Gap (3-11) POC Anion Gap 18.0 (16-25) mmol/L POC BUN 38 H (7-18) mg/dl BUN (7-18) mg/dl Creatinine (0.6-1.2) mg/dl POC Creatinine 1.2 (0.6-1.3) mg/dl Est Cr Clr Drug Dosing ml/min Est GFR ( Amer) ml/min Est GFR (Non-Af Amer) ml/min BUN/Creatinine Ratio (10-20) Glucose (70-99) mg/dl POC Glucose (other) 344 H (70-99) mg/dl Calcium (8.5-10.1) mg/dl POC Ioniz Calcium Wiley 1.31 (1.12-1.32) mmol/l Magnesium (1.8-2.4) mg/dl Total Bilirubin (0.2-1) mg/dl AST (15-37) U/L ALT (12-78) U/L Alkaline Phosphatase (45-117) U/L Total Creatine Kinase (26-192) U/L Troponin I (0-0.045) ng/ml Total Protein (6.4-8.2) gm/dl Albumin (3.4-5.0) gm/dl Globulin (2.5-4.0) gm/dl Albumin/Globulin Ratio (0.9-2) Beta-Hydroxybutyric Acd (0.2-2.81) mg/dl TSH (0.300-4.500) uIu/ml SARS-CoV-2, RNA, NAAT NEGATIVE (NEGATIVE) Administered Medications Morphine Sulfate (Morphine Sulfate 4 Mg/Ml 1 Ml Carp\\Vial) 4 mg IV Q30M PRN PRN Reason: Pain Stop: 03/06/21 13:26 Last Admin: 02/20/21 13:40 Dose: 4 mg Documented by: [id number] Discontinued Medications Cefazolin Sodium (Ancef 2000mg) 2,000 mg in 15 mls @ 3.75 mls/min IV NOW STA Stop: 02/20/21 13:30 Last Admin: 02/20/21 13:40 Dose: 3.75 mls/min Documented by: [id number] Ioversol (Optiray 320 100ml) 95 ml IV ONCE ONE Stop: 02/20/21 13:24 Last Admin: 02/20/21 13:23 Dose: 95 ml Documented by: [id number] Ondansetron HCl (Ondansetron Inj 2 Mg/Ml 2 Ml Vial) 4 mg IV NOW STA Stop: 02/20/21 13:28 Last Admin: 02/20/21 13:40 Dose: 4 mg Documented by: [id number] Imaging Data Radiologist's Impression: Abdomen/Pelvis CT 02/20/21 13:01 CT abd pelvis IV con only CLINICAL HISTORY: Status post fall with pain COMPARISON STUDY: 04/01/2020 TECHNIQUE: Standard CT of the Abdomen and Pelvis was performed with IV contrast. A dose lowering technique was utilized adhering to the principles of ALARA. Contrast Volume: Omnipaque 320, 95 ml. The patient did not receive oral contrast. FINDINGS: Lung base: The lung bases are clear. Abdominal cavity: There is no evidence for abdominal mass, adenopathy or ascites. Liver: There is homogeneous attenuation of the liver parenchyma. There is no evidence for enhancing mass lesion. Spleen: There is homogeneous attenuation of the splenic parenchyma. There is no enhancing mass lesion. Pancreas: There is homogeneous attenuation of the pancreatic parenchyma. There is no evidence for mass lesion or peripancreatic fluid collection. Gall Bladder: The gallbladder is again well distended with cholelithiasis. There is no CT evidence for acute cholecystitis. Adrenal glands: The adrenal glands are normal in size and attenuation. There is no evidence for enhancing mass lesion. Kidneys: There is homogeneous attenuation of the renal parenchyma bilaterally. There is no evidence for renal calculus or hydronephrosis. There is no evidence for enhancing mass. Bowel: Small to moderate size hiatal hernia is present. The bowel loops are normally placed within the abdomen and pelvis without evidence for dilatation or obstruction. There is mild fecal stasis without evidence for impaction or obstruction. There are no inflammatory changes present. There is no evidence for free air. There is a normal appendix in the right lower quadrant. Bladder: The bladder is within normal limits with no evidence for focal mass, calculus or diverticulum. : There is no evidence for pelvic mass or adenopathy. There is no evidence for pelvic ascites. Vasculature: There is no evidence for aneurysmal dilatation of the abdominal aorta. Mild atherosclerotic calcification is present. Osseous structures: There is no acute osseous pathology. Prominent degenerative changes are seen within the lumbar spine. There are also degenerative changes of the SI joints. IMPRESSION: 1. No acute intra-abdominal or pelvic abnormality. 2. Mild fecal stasis without impaction or obstruction. 3. Small to moderate size hiatal hernia. 4. Cholelithiasis without CT evidence for acute cholecystitis is again seen. 5. Additional nonacute findings are delineated above. ACT 112: Negative or not required by law. Electronically signed by: Kirk Sosa M.D. 02/20/2021 2:[address] 02/20/21 13:01 CT cervical spine wo con CLINICAL HISTORY: Status post fall. Pain. COMPARISON STUDY: 11/19/2019 CT DOSE: 3229.39 mGy.cm TECHNIQUE: Standard CT of the Cervical Spine was performed without IV contrast. A dose lowering technique was utilized adhering to the principles of ALARA. FINDINGS: Bones: There is a comminuted, nondisplaced fracture through the C6 vertebral body. It is considered a stable fracture as there is fusion of C5 and C6 disc space level and there is bridging osteophyte formation between C6 and C7 a nteriorly. There is no posterior extrusion of a fracture fragment into the spinal canal. The remaining vertebral bodies are intact. There is no evidence for malalignment. The heights of the vertebral bodies are maintained. The vertebral bodies are in anatomic alignment. The odontoid is intact. Degenerative changes are seen at the atlantoaxial articulation. Disc spaces:There is moderate to marked disc space narrowing at C4-5. There is again fusion at the C5-6 level due to bridging osteophyte formation anteriorly and posteriorly. 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 Soft tissues:The prevertebral soft tissues are within normal limits. IMPRESSION: Evidence for a stable, comminuted fracture through the body of C6 as described above. No posterior extrusion into the spinal canal is identified. Degenerative disc and degenerative joint disease are also present. Emergency Department was called with results of the study. ACT 112: Negative or not required by law. Electronically signed by: Kirk Sosa M.D. 02/20/2021 1:[address] 02/20/21 13:01 CT chest diagnostic w con CLINICAL HISTORY: Status post fall with pain COMPARISON STUDY: Previous CTA chest from 04/10/2018 TECHNIQUE: Standard CT of the Chest was performed with IV contrast. A dose lowering technique was utilized adhering to the principles of ALARA. Contrast Volume: Optiray 320, 95 ml FINDINGS: Airway: The airway is clear. No endobronchial lesion is identified. Lungs: The lungs are clear of acute alveolar opacities, air bronchograms or pulmonary nodules. Pleura: There is no evidence for pleural effusion. There is no evidence for pneumothorax. Mediastinum: There is no evidence for pathologic adenopathy. The heart size is within normal limits. There is coronary artery calcification. The thoracic aorta is within normal limits. Mild atherosclerotic calcification is present. There is no evidence for pericardial effusion. There is asymmetric elevation left hemidiaphragm. Upper abdomen: The adrenal glands are normal bilaterally. There is a small to moderate size hiatal hernia. Osseous structures: There is no acute osseous pathology. Degenerative changes are seen within the thoracic spine. IMPRESSION: No acute chest disease. Nonacute findings as delineated above. ACT 112: Negative or not required by law. Electronically signed by: Kirk Sosa M.D. 02/20/2021 1:[address] 02/20/21 13:01 CT facial bones wo con CLINICAL HISTORY: Status post fall with left-sided facial pain COMPARISON STUDY: No previous studies for comparison. TECHNIQUE: Standard CT of the Facial Bones and Orbits was performed without IV contrast. A dose lowering technique was utilized adhering to the principles of ALARA. FINDINGS: Bones: There are comminuted, minimally displaced fractures present involving the lateral brown of the nasal bones, right greater than left. Cortical offset is present. There is also nondisplaced fracture at the bridge of the nasal bone. Nasal septum is slightly deviated to the right. The zygomatic arches are intact bilaterally. There is no definite fracture of the maxilla. The orbital rims are intact bilaterally. Mandible is intact with degenerative changes at the temporo mandibular joint. Paranasal sinuses:There is mucosal thickening with evidence for fluid level in the left maxillary sinus. Mucosal thickening of the ethmoid air cells is also seen. Soft tissues:There is soft tissue swelling over the forehead and nose. IMPRESSION: 1. Comminuted, essentially nondisplaced fracture nasal bones as described. 2. Slight deviation nasal septum to the right. 3. No evidence for maxillary fracture. 4. Mucosal thickening of the left maxillary antrum and ethmoid air cells. 5. Soft tissue swelling over the forehead and nose. ACT 112: Negative or not required by law. Electronically signed by: Kirk Sosa M.D. 02/20/2021 1:[address] 02/20/21 13:01 CT head/brain wo con CLINICAL HISTORY: Status post fall with left-sided facial pain COMPARISON STUDY: 11/19/2019 TECHNIQUE: Standard CT of the Brain was performed without IV contrast. A dose lowering technique was utilized adhering to the principles of ALARA. FINDINGS: Extraaxial space: There is no evidence for subdural hematoma. There are no e xtra-axial fluid collections. Ventricles and cisterns: The ventricles are again mildly to moderately dilated bilaterally. There is no evidence for midline shift or mass effect. Parenchyma: There is no subarachnoid or intraparenchymal hemorrhage. There is no evidence for an acute infarct or cerebral edema. There is mild cerebral cortical atrophy and decreased attenuation in the periventricular white matter representing remote small vessel disease. There are no gross mass lesions. Osseous structures: There are nasal bone fractures present. There is no evidence for an acute fracture. There is a fluid level in the left maxillary antrum. The remaining visualized paranasal sinuses are clear. The mastoid air cells are clear bilaterally. Soft tissues: There is no evidence for focal soft tissue swelling. IMPRESSION: No acute intracerebral pathology. Mild cerebral cortical atrophy and remote small vessel disease are again seen. Multiple nasal bone fractures and f luid level within the left maxillary antrum are present. Please see CT facial bones for further evaluation. ACT 112: Negative or not required by law. Electronically signed by: Kirk Sosa M.D. 02/20/2021 1:31 PM Discharge Plan Visit Data Chief Complaint: Fall Stated Complaint: FALL, FACIAL INJURY ED Provider: Cody Gutierrez Discharge Problem: Fracture closed, nasal bone, Acute anterior epistaxis, C6 cervical fracture, Fall, Contusion of face Patient Disposition: Being Evaluated by Hospitalist Forms Stand Alone Forms: [facility] Prescriptions Prescriptions: No Action aspirin 81 mg tablet,delayed release (DR/EC) 81 mg PO DAILY Qty: 90 RF: 3 (DME) pen needle, diabetic [BD Ultra-Fine Marleny Pen Needle] 32 gauge x 5/32" needle See Dose Instructions .ROUTE .MEDSUPPLY Qty: 200 RF: 11 lisinopril 2.5 mg tablet 2.5 mg PO QAM Qty: 90 RF: 3 ondansetron 8 mg tablet,disintegrating 8 mg PO Q8H PRN (Reason: nausea and vomiting) Qty: 42 RF: 1 gabapentin 300 mg capsule 300 mg PO TID Qty: 90 RF: 2 amoxicillin 500 mg capsule See Rx Instructions PO .COMPLEX Qty: 16 RF: 0 (DME) OneTouch Ultra Blue Test Strip Strip See Rx Instructions .ROUTE .MEDSUPPLY Qty: 300 RF: 3 metformin 1,000 mg tablet 1,000 mg PO BID Qty: 180 RF: 3 rosuvastatin 20 mg tablet 20 mg PO QAM Qty: 90 RF: 3 diclofenac sodium 75 mg tablet,delayed release (DR/EC) 75 mg PO BID Qty: 60 RF: 5 esomeprazole magnesium [Nexium] 40 mg capsule,delayed release(DR/EC) 40 mg PO QAM Qty: 90 RF: 1 buspirone 15 mg tablet 15 mg PO TID Qty: 90 RF: 0 insulin lispro [Humalog KwikPen Insulin] 100 unit/mL insulin pen 0 unit subcut TID RF: 0 Lantus Solostar U-100 Insulin 100 unit/mL (3 mL) insulin pen 44 unit SQ QPM RF: 0 cyclobenzaprine 10 mg tablet 10 mg PO TID PRN (Reason: muscle spasm) RF: 0 cyanocobalamin (vitamin B-12) 1,000 mcg tablet 1,000 mcg PO DAILY RF: 0 cholecalciferol (vitamin D3) 2,000 unit capsule 2,000 units PO DAILY RF: 0 (DME) blood-glucose meter [Layer3 TVuch UltraMini] kit See Dose Instructions .ROUTE .MEDSUPPLY Qty: 1 RF: 0 albuterol sulfate [ProAir HFA] 90 mcg/actuation HFA aerosol inhaler 2 puff INH Q4H PRN (Reason: Shortness Of Breath Or Wheezing) Qty: 8.5 RF: 3 venlafaxine 150 mg capsule,extended release 24hr 150 mg PO DAILY RF: 0 Referrals Referrals: PCP,NO [Physician] -
[2021-02-20 13:45] LABS: iSTAT Creatinine 1.2 mg/dl (0.6-1.3); iSTAT Hemoglobin 10.5 g/dl (12.0-16.0); iSTAT Ionized Calcium 1.31 mmol/l (1.12-1.32); iSTAT Potassium 4.6 mmol/L (3.3-5.0)
[2021-02-20 13:45] LABS: Basophils # (auto) 0.04 K/uL (0-0.2); Basophils % (auto) 0.4 %; Eosinophils # (auto) 0.05 K/uL (0-0.5); Eosinophils % (auto) 0.5 %; Hematocrit (blood only) 32.7 % (37-47); Hemoglobin 10.7 g/dL (12.0-16.0); Immature Granulocytes # (auto) 0.02 K/uL (0.00-0.02); Immature Granulocytes % (auto) 0.2 %; Lymphocytes # (auto) 1.43 K/uL (1.2-3.4); Lymphocytes % (auto) 14.4 %; Mean Corpuscular Hemoglobin 29.2 pg (25-34); Mean Corpuscular Hgb Conc 32.7 g/dL (32-36); Mean Corpuscular Volume 89.3 fL (80-100); Mean Platelet Volume 10.1 fL (7.4-10.4); Monocytes # (auto) 0.63 K/uL (0.11-0.59); Monocytes % (auto) 6.4 %; Neutrophils # (auto) 7.73 K/uL (1.4-6.5); Neutrophils % (auto) 78.1 %; Platelet Count 215 K/uL (130-400); Red Blood Count 3.66 M/uL (4.2-5.4)
--- NOTE | 2021-02-20 13:45 | CT Scan Report ---
CT cervical spine wo con CLINICAL HISTORY: Status post fall. Pain. COMPARISON STUDY: 11/19/2019 CT DOSE: 3229.39 mGy.cm TECHNIQUE: Standard CT of the Cervical Spine was performed without IV contrast. A dose lowering te chnique was utilized adhering to the principles of ALARA. FINDINGS: Bones: There is a comminuted, nondisplaced fracture through the C6 vertebral body. It is considered a stable fracture as there is fusion of C5 and C6 disc space level and there is bridging osteophyte fo rmation between C6 and C7 anteriorly. There is no posterior extrusion of a fracture fragment into the spinal canal. The remaining vertebral bodies are intact. There is no evidence for malalignment. The heights of the vertebral bodies are maintained. The vertebral bodies are in anatomic alignment. The odontoid is inta ct. Degenerative changes are seen at the atlantoaxial articulation. Disc spaces:There is moderate to marked disc space narrowing at C4-5. There is again fusion at the C5 -6 level due to bridging osteophyte formation anteriorly and posteriorly. 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 Soft tissues:The prevertebral soft tissues are within normal limits. IMPRESSION: Evidence for a stable, comminuted fracture through the body of C6 as described above. No posterior extrusion into the spinal canal is identified. Degenerative disc and degenerative joint dis ease are also present. Emergency Department was called with results of the study. ACT 112: Negative or not required by law. Electronically signed by: Kirk Sosa M.D. 02/20/2021 1:44 PM
--- NOTE | 2021-02-20 13:53 | CT Scan Report ---
CT facial bones wo con CLINICAL HISTORY: Status post fall with left-sided facial pain COMPARISON STUDY: No previous studies for comparison. TECHNIQUE: Standard CT of the Facial Bones and Orbits was performed without IV contrast. A dose lowe ring technique was utilized adhering to the principles of ALARA. FINDINGS: Bones: There are comminuted, minimally displaced fractures present involving the lateral brown of the nasal bones, right greater than left. Cortical offset is present. There is also nondisplaced fractur e at the bridge of the nasal bone. Nasal septum is slightly deviated to the right. The zygomatic arch es are intact bilaterally. There is no definite fracture of the maxilla. The orbital rims are intact bilaterally. Mandible is intact with degenerative changes at the temporomandibular joint. Paranasal sinuses:There is mucosal thickening with evidence for fluid level in the left maxillary sin us. Mucosal thickening of the ethmoid air cells is also seen. Soft tissues:There is soft tissue swelling over the forehead and nose. IMPRESSION: 1. Comminuted, essentially nondisplaced fracture nasal bones as described. 2. Slight deviation nasal septum to the right. 3. No evidence for maxillary fracture. 4. Mucosal thickening of the left maxillary antrum and ethmoid air cells. 5. Soft tissue swelling over the forehead and nose. ACT 112: Negative or not required by law. Electronically signed by: Kirk Sosa M.D. 02/20/2021 1:52 PM
--- NOTE | 2021-02-20 13:59 | CT Scan Report ---
CT chest diagnostic w con CLINICAL HISTORY: Status post fall with pain COMPARISON STUDY: Previous CTA chest from 04/10/2018 TECHNIQUE: Standard CT of the Chest was performed with IV contrast. A dose lowering technique was u tilized adhering to the principles of ALARA. Contrast Volume: Optiray 320, 95 ml FINDINGS: Airway: The airway is clear. No endobronchial lesion is identified. Lungs: The lungs are clear of acute alveolar opacities, air bronchograms or pulmonary nodules. Pleura: There is no evidence for pleural effusion. There is no evidence for pneumothorax. Mediastinum: There is no evidence for pathologic adenopathy. The heart size is within normal limits. There is coronary artery calcification. The thoracic aorta is within normal limits. Mild atherosclero tic calcification is present. There is no evidence for pericardial effusion. There is asymmetric elevation left hemidiaphragm. Upper abdomen: The adrenal glands are normal bilaterally. There is a small to moderate size hiatal he rnia. Osseous structures: There is no acute osseous pathology. Degenerative changes are seen within the tho racic spine. IMPRESSION: No acute chest disease. Nonacute findings as delineated above. ACT 112: Negative or not required by law. Electronically signed by: Kirk Sosa M.D. 02/20/2021 1:57 PM
[2021-02-20 14:02] LABS: Partial Thromboplastin Ratio 0.8; Partial Thromboplastin Time 21.9 Seconds (21.0-31.0); Prothrombin Time 10.4 Seconds (9.0-12.0)
--- NOTE | 2021-02-20 14:06 | CT Scan Report ---
CT abd pelvis IV con only CLINICAL HISTORY: Status post fall with pain COMPARISON STUDY: 04/01/2020 TECHNIQUE: Standard CT of the Abdomen and Pelvis was performed with IV contrast. A dose lowering bony hnique was utilized adhering to the principles of ALARA. Contrast Volume: Omnipaque 320, 95 ml. The patient did not receive oral contrast. FINDINGS: Lung base: The lung bases are clear. Abdominal cavity: There is no evidence for abdominal mass, adenopathy or ascites. Liver: There is homogeneous attenuation of the liver parenchyma. There is no evidence for enhancing m ass lesion. Spleen: There is homogeneous attenuation of the splenic parenchyma. There is no enhancing mass lesion . Pancreas: There is homogeneous attenuation of the pancreatic parenchyma. There is no evidence for mas s lesion or peripancreatic fluid collection. Gall Bladder: The gallbladder is again well distended with cholelithiasis. There is no CT evidence fo r acute cholecystitis. Adrenal glands: The adrenal glands are normal in size and attenuation. There is no evidence for enhan cing mass lesion. Kidneys: There is homogeneous attenuation of the renal parenchyma bilaterally. There is no evidence f or renal calculus or hydronephrosis. There is no evidence for enhancing mass. Bowel: Small to moderate size hiatal hernia is present. The bowel loops are normally placed within th e abdomen and pelvis without evidence for dilatation or obstruction. There is mild fecal stasis witho ut evidence for impaction or obstruction. There are no inflammatory changes present. There is no evid ence for free air. There is a normal appendix in the right lower quadrant. Bladder: The bladder is within normal limits with no evidence for focal mass, calculus or diverticulu m. : There is no evidence for pelvic mass or adenopathy. There is no evidence for pelvic ascites. Vasculature: There is no evidence for aneurysmal dilatation of the abdominal aorta. Mild atherosclero tic calcification is present. Osseous structures: There is no acute osseous pathology. Prominent degenerative changes are seen with in the lumbar spine. There are also degenerative changes of the SI joints. IMPRESSION: 1. No acute intra-abdominal or pelvic abnormality. 2. Mild fecal stasis without impaction or obstruction. 3. Small to moderate size hiatal hernia. 4. Cholelithiasis without CT evidence for acute cholecystitis is again seen. 5. Additional nonacute findings are delineated above. ACT 112: Negative or not required by law. Electronically signed by: Kirk Sosa M.D. 02/20/2021 2:04 PM
[2021-02-20 14:16] LABS: Albumin Globulin Ratio 0.8 (0.9-2); Albumin Level 2.8 gm/dl (3.4-5.0); BUN Creatinine Ratio 30.2 (10-20); Bilirubin,Total 0.5 mg/dl (0.2-1); Calcium 9.2 mg/dl (8.5-10.1); Creatinine Clr Calc Pharmacy 39.2 ml/min; Est GFR (African American) 46.3 ml/min; Globulin 3.3 gm/dl (2.5-4.0); Magnesium 1.6 mg/dl (1.8-2.4); Potassium 4.5 mmol/L (3.5-5.1); Thyroid Stimulating Hormone 2.18 uIu/ml (0.300-4.500); Total Protein 6.1 gm/dl (6.4-8.2); Troponin I 0.038 ng/ml (0-0.045)
[2021-02-20 14:50] LABS: Beta-Hydroxybutyrate 1.24 mg/dl (0.2-2.81)
--- NOTE | 2021-02-20 16:56 | History & Physical Report ---
Date of Service February 20, 2021 Assessment & Plan (1) Fall: Plan: Patient presents with seemingly mechanical fall while walking a dog, landed on her face sustaining nasal bone fractures and a C6 vertebral body fracture and contusions to the face. She did not lose consciousness but does not remember tripping on anything however she does have diabetic peripheral neuropathy and difficulty with balance. I do not think that she had syncope leading to her. -Admit for pain control, orthopedic spine surgery evaluation, and further observation of oxygenation/respiratory status as below (2) Fracture closed, nasal bone: Plan: With bilateral nasal bone fractures without significant displacement with fluid in left maxillary sinus Pain control with IV morphine as needed No further epistaxis Cautioned her not to blow her nose -Follow-up with ENT, Dr. Connor, as an outpatient in 1 week -Continue prophylactic antibiotics with Augmentin 875 mg p.o. twice daily x1 week (3) Acute anterior epistaxis: Plan: As above, lost quite a bit of blood initially, but now has stopped spontaneously She is not on blood thinners Hold home NSAIDs Advised to not to blow her nose Could use Afrin if needed Follow-up with ENT (4) C6 cervical fracture: Plan: With acute fracture to the C6 vertebral body secondary to fall Fortunately is a stable fracture given fusion to C5 with osteophytes and she has no focal neurological deficits at this time Consult orthopedic spine surgery for evaluation tomorrow Continue Rolette J-J collar IV morphine as needed for pain control (5) Elevated troponin: Plan: Troponin detectable on admission at 0.03, with some inferior T wave inversions on ECG change from previous She denies chest pain Repeat troponin more elevated at 0.33 but remains asymptomatic Head normal cardiac catheterization in 2019 Trend serial troponin and ECG Check echocardiogram for wall motion abnormalities in the morning (6) Acute blood loss anemia: Plan: Hemoglobin in the 10 range, normocytic Was normal previously Most likely due to acute blood loss from epistaxis Follow CBC in the morning (7) Acute respiratory failure with hypoxia: Plan: Requiring 2 L nasal cannula for mild hypoxia in the ER, likely related to blockage of nasal passages from blood clots from epistaxis and swelling from nasal bone fracture Also with allergy induced asthma Continue supplemental O2 to keep pulse ox greater than 90-92% Wean off O2 as able to -Continue home albuterol as needed (8) Contusion of face: Plan: Pain control as needed Secondary to fall (9) Hypertension: Plan: Blood pressures are acceptable She does not actually have hypertension, but was on lisinopril from her previous now resolved nonischemic cardiomyopathy -Holding lisinopril for mildly low blood pressures on admission and mildly elevated creatinine (10) Cardiomyopathy: Plan: Nonischemic cardiomyopathy-previously had reduced EF but has now resolved after being on metoprolol lisinopril Metoprolol has now been discontinued and she has been discharged from the care of a distance learning coordinator She remains on low-dose of lisinopril, but will hold for now as above due to renal insufficiency and mildly low blood pressures on arrival Echocardiogram to be checked tomorrow due to mild elevated troponin (11) Type 2 diabetes mellitus, uncontrolled: Plan: Uncontrolled Last hemoglobin A1c greater than 10% Follows with endocrinology Continue home Lantus and will give NovoLog sliding scale insulin Accu-Cheks, ADA diet Hold home Metformin (12) Diabetic peripheral neuropathy associated with type 2 diabetes mellitus: Plan: Continue home gabapentin (13) Dyslipidemia: Plan: Continue rosuvastatin (14) Depression: Plan: Continue venlafaxine and BuSpar (15) GERD (gastroesophageal reflux disease): Plan: Continue PPI (16) Renal insufficiency: Plan: BUN/creatinine mildly elevated upon admission likely secondary to mild dehydration Holding home diclofenac, lisinopril Follow BMP Plan: DVT prophylaxis-avoid Lovenox due to epistaxis, add SCDs Disposition-pending on observation on med-telemetry for pain control, observation for further hypoxia, and elevated troponin, await orthopedic spine surgery consultation History of Present Illness Chief Complaint: fall,facial injury Primary Care Provider: Gabriel Enriquez DO This patient is a 70-year-old female with a history of resolved nonischemic cardiomyopathy, uncontrolled DM 2, HTN, hyperlipidemia, GERD, venous insufficiency, gastroparesis, depression/anxiety, IPMN, and vitamin D deficiency who presents to the ER after she fell onto her face onto the sidewalk while walking a small dog. She reports she does not recall tripping, but she does have a history of pain similar events. She denies losing consciousness and remembers everything about the fall. She did not have time to put her arms out in front of her brace herself. She initially had a very severe nosebleed which stopped spontaneously prior to arrival. She complained of a headache and facial pain as well as lower neck pain in the midline which is now improved with pain medicine. She has no other injuries. She denies any numbness/tingling or weakness in the upper or lower extremities. She had a CT of her head, facial bones, cervical spine, chest, abdomen/pelvis which did reveal multiple essentially nondisplaced comminuted fractures of the nasal bones and fluid in the left maxillary sinus, as well as a fracture through the body of the C6 vertebrae which was considered to be stable due to fusion with C5 with osteophytes. ENT was consulted by the ER physician who recommended no need for urgent surgery and to follow-up as an outpatient. She was given IV Ancef in the ER for prophylaxis. Orthopedic spine surgeon was also contacted by the ER physician who recommended a Rolette-J collar and to be seen in consultation routinely. She did require 2 L nasal cannula supplemental O2 for mildly low pulse ox thought to be secondary to edema and blood clots in the nasal passages. Otherwise on labs, she was noted to be mildly anemic with a hemoglobin of 10 which was new for her, and with a low magnesium level of 1.6. Her BUN/creatinine was also mildly elevated from previous at 41/1.35, and her glucose was significantly elevated at 355. Patient was given IV morphine, IV Zofran, and IV Ancef in the ER She will be brought in on observation overnight for pain control, monitoring of her oxygen levels, and evaluation by orthopedic spine surgery for her C6 fracture. Allergies Allergy/AdvReac Type Severity Reaction Status Date / Time No Known Allergies Allergy Verified 02/20/21 14:07 Home Medications Medication Instructions Recorded Confirmed Type blood-glucose meter (QuboleTouch #1 ea 10/29/18 01/17/21 History UltraMini) cholecalciferol (vitamin D3) 50 2,000 units PO DAILY 11/08/18 02/20/21 History mcg (2,000 unit) capsule cyanocobalamin (vitamin B-12) 1,000 mcg PO DAILY 11/08/18 02/20/21 History 1,000 mcg tablet aspirin 81 mg tablet,delayed 81 mg PO DAILY #90 tab 06/23/19 02/20/21 Rx release cyclobenzaprine 10 mg tablet 10 mg PO TID PRN tab 12/12/19 02/20/21 History pen needle, diabetic 32 gauge x #200 ea 01/29/20 02/20/21 Rx 5/32" (BD Ultra-Fine Marleny Pen Needle) lisinopril 2.5 mg tablet 2.5 mg PO QAM #90 tab 04/06/20 02/20/21 Rx albuterol sulfate 90 mcg/actuation 2 puff INH Q4H PRN #8.5 g 06/24/20 02/20/21 Rx aerosol inhaler (ProAir HFA) ondansetron 8 mg disintegrating 8 mg PO Q8H PRN #42 tab 07/23/20 02/20/21 Rx tablet gabapentin 300 mg capsule 300 mg PO TID #90 cap 08/09/20 02/20/21 Rx amoxicillin 500 mg capsule See Rx Instructions PO .COMPLEX 08/19/20 02/20/21 Rx #16 cap QuboleTouch Ultra Blue Test Strip #300 ea NS 09/13/20 02/20/21 Rx (blood sugar diagnostic) metformin 1,000 mg tablet 1,000 mg PO BID #180 tab 09/14/20 02/20/21 Rx insulin lispro 100 unit/mL 0 unit SUBCUT TID ml 09/23/20 02/20/21 History subcutaneous pen (Humalog KwikPen (U-100) Insulin) rosuvastatin 20 mg tablet 20 mg PO QAM #90 tab 10/12/20 02/20/21 Rx diclofenac sodium 75 mg 75 mg PO BID #60 tab 10/20/20 02/20/21 Rx tablet,delayed release insulin glargine 100 unit/mL (3 44 unit SQ QPM ml 11/25/20 02/20/21 History mL) subcutaneous pen (Lantus Solostar U-100 Insulin) esomeprazole magnesium 40 mg 40 mg PO QAM #90 cap 12/06/20 02/20/21 Rx capsule,delayed release (Nexium) buspirone 15 mg tablet 15 mg PO TID #90 tab 01/31/21 02/20/21 Rx venlafaxine 150 mg 150 mg PO DAILY 02/20/21 02/20/21 History capsule,extended release 24 hr Past Med/Surg History Medical History Anxiety Cardiomyopathy Chronic osteoarthritis Depression Diabetic peripheral neuropathy associated with type 2 diabetes mellitus Dysesthesia Dyslipidemia Frequent falls Gastroparesis GERD (gastroesophageal reflux disease) Hiatal hernia Small Hypertension Lumbar radiculopathy Mixed conductive and sensorineural hearing loss of both ears NSTEMI (non-ST elevated myocardial infarction) Pancreatic cyst [facility] Perianal abscess Urinary incontinence Venous insufficiency (chronic) (peripheral) Vitamin D deficiency Vitiligo Surgical History History of total knee replacement RT TKA APPROX 15 YEARS AGO L TKA 01/23/2018 Hx of cardiac cath Mar 2018. Normal coronary arteries. Family History Mother Hypertension Father Breast cancer Family/Other Breast cancer Unknown Osteoarthritis Denies family history of Ovarian cancer Prostate cancer Colorectal cancer Lung disease Social History Smoking Status: Never smoker Second Hand Exposure: No; Hx Alcohol Use: No Hx Substance Use: No Preferred Language: Libyan Communication Ability: Effective Visual Impairment: Diminished Hearing Ability: Normal Franchise Development Manager Required: No Beliefs That Will Affect Care: None marital status: Current Living Situation: Family Current Living Situation Comment: RESIDES WITH MOTHER current occupational status: disabled Feels Safe at Home: Yes Childhood Exposure to Second-Hand Smoke: No caffeine: Yes Dental Care, Regularly: Yes Physical Activity Frequency: 3-4 Times per Week Physical Activity Frequency Comment: walk Seatbelt Use: always Sunscreen Use: No (not in the sun) Do you think of yourself as: straight/heterosexual Assistive Devices: Glasses Review of Systems Review of Systems: All systems reviewed & are unremarkable except as noted in HPI & below Denies chest pain or shortness of breath, no abdominal pain, denies nausea or vomiting currently but did have a small episode of emesis shortly after the fall onto her face. Denies joint pains elsewhere. Physical Exam Constitutional: WD/WN, vitals as above Eyes: PERRL, conjunctivae normal, anicteric sclerae With periorbital ecchymosis and edema bilaterally, with small hematoma in the central forehead Extraocular muscles intact without pain with movement No APD ENMT: Ears: no external ear abnormality, no EAC abnormality and no TM abnormality Nose: + external nose abnormality (Positive edema and ecchymosis); no septum abnormality (No septal hematoma) Mouth: + lip abnormality (Upper and lower lips with swelling and crusted blood); no tongue abnormality Throat: uvula midline; no posterior oropharynx abnormality Neck: trachea midline, no thyromegaly In Rolette J collar, not removed Respiratory: normal respiratory effort, lungs clear to auscultation Cardiovascular: RRR, no murmur, no edema Chest (Breasts): Chest: normal inspection of chest Gastrointestinal (Abdomen): normal bowel sounds, soft, nontender, no hepatosplenomegaly Musculoskeletal: Extremities: extremities normal to inspection; no cyanosis and no clubbing Skin: no rashes, warm and dry Neurologic: moves all extremities and awake; no focal motor deficits Motor/Sensory: no sensory deficit (Sensation intact throughout upper and lower extremities) Psychiatric: A+Ox3, euthymic affect Lymphatic: no lymphedema Results & Data Results & Data ([facility]) Vital Signs (Past 12 Hours) Vital Signs Temp Pulse Pulse Resp BP Pulse Ox 02/20/21 16:27 83 16 98 02/20/21 15:00 82 17 115/85 98 02/20/21 14:30 77 12 98/64 L 95 02/20/21 14:00 77 13 102/57 L 95 02/20/21 13:47 80 12 95 02/20/21 13:17 36.5 C 80 12 113/51 L 95 Laboratory Results 02/20/21 02/20/21 02/20/21 Range/Units 23:23 23:16 23:15 WBC (4.8-10.8) K/uL RBC (4.2-5.4) M/uL Hgb (12.0-16.0) g/dL POC Hgb (12.0-16.0) g/dl Hct (37-47) % POC Hct (37-47) % MCV (80-100) fL MCH (25-34) pg MCHC (32-36) g/dL RDW Std Deviation (36.4-46.3) fL RDW Coeff of Barrett (11.5-14.5) % Plt Count (130-400) K/uL MPV (7.4-10.4) fL Immature Gran % (Auto) % Neut % (Auto) % Lymph % (Auto) % Hall % (Auto) % Eos % (Auto) % Baso % (Auto) % Neut # (Auto) (1.4-6.5) K/uL Lymph # (Auto) (1.2-3.4) K/uL Hall # (Auto) (0.11-0.59) K/uL Eos # (Auto) (0-0.5) K/uL Baso # (Auto) (0-0.2) K/uL Immature Gran # (Auto) (0.00-0.02) K/uL PT (9.0-12.0) Seconds INR (0.9-1.1) APTT (21.0-31.0) Seconds PTT Ratio POC Sodium (135-144) mmol/L Sodium (136-145) mmol/L POC Potassium (3.3-5.0) mmol/L Potassium (3.5-5.1) mmol/L POC Chloride (101-112) mmol/L Chloride (98-107) mmol/L Carbon Dioxide (21-32) mmol/L POC Total CO2 (24-31) mmol/L Anion Gap (3-11) POC Anion Gap (16-25) mmol/L POC BUN (7-18) mg/dl BUN (7-18) mg/dl Creatinine (0.6-1.2) mg/dl POC Creatinine (0.6-1.3) mg/dl Est Cr Clr Drug Dosing ml/min Est GFR ( Amer) ml/min Est GFR (Non-Af Amer) ml/min BUN/Creatinine Ratio (10-20) Glucose (70-99) mg/dl POC Glucose 284 H 283 H 320 H* (70-99) mg/dl POC Glucose (other) (70-99) mg/dl Calcium (8.5-10.1) mg/dl POC Ioniz Calcium Wiley (1.12-1.32) mmol/l Magnesium (1.8-2.4) mg/dl Total Bilirubin (0.2-1) mg/dl AST (15-37) U/L ALT (12-78) U/L Alkaline Phosphatase (45-117) U/L Total Creatine Kinase (26-192) U/L Troponin I (0-0.045) ng/ml Total Protein (6.4-8.2) gm/dl Albumin (3.4-5.0) gm/dl Globulin (2.5-4.0) gm/dl Albumin/Globulin Ratio (0.9-2) Beta-Hydroxybutyric Acd (0.2-2.81) mg/dl TSH (0.300-4.500) uIu/ml Urine Color Urine Appearance (Clear) Urine pH (4.5-7.5) Ur Specific [place] (1.000-1.030) Urine Protein (Negative) Urine Glucose (UA) (Negative) Urine Ketones (Negative) Urine Blood (Negative) Urine Nitrite (Negative) Urine Bilirubin (Negative) Urine Urobilinogen (Negative) Ur Leukocyte Esterase (Negative) SARS-CoV-2, RNA, NAAT (NEGATIVE) 02/20/21 02/20/21 02/20/21 Range/Units 23:00 18:31 13:47 WBC (4.8-10.8) K/uL RBC (4.2-5.4) M/uL Hgb (12.0-16.0) g/dL POC Hgb (12.0-16.0) g/dl Hct (37-47) % POC Hct (37-47) % MCV (80-100) fL MCH (25-34) pg MCHC (32-36) g/dL RDW Std Deviation (36.4-46.3) fL RDW Coeff of Barrett (11.5-14.5) % Plt Count (130-400) K/uL MPV (7.4-10.4) fL Immature Gran % (Auto) % Neut % (Auto) % Lymph % (Auto) % Hall % (Auto) % Eos % (Auto) % Baso % (Auto) % Neut # (Auto) (1.4-6.5) K/uL Lymph # (Auto) (1.2-3.4) K/uL Hall # (Auto) (0.11-0.59) K/uL Eos # (Auto) (0-0.5) K/uL Baso # (Auto) (0-0.2) K/uL Immature Gran # (Auto) (0.00-0.02) K/uL PT (9.0-12.0) Seconds INR (0.9-1.1) APTT (21.0-31.0) Seconds PTT Ratio POC Sodium (135-144) mmol/L Sodium (136-145) mmol/L POC Potassium (3.3-5.0) mmol/L Potassium (3.5-5.1) mmol/L POC Chloride (101-112) mmol/L Chloride (98-107) mmol/L Carbon Dioxide (21-32) mmol/L POC Total CO2 (24-31) mmol/L Anion Gap (3-11) POC Anion Gap (16-25) mmol/L POC BUN (7-18) mg/dl BUN (7-18) mg/dl Creatinine (0.6-1.2) mg/dl POC Creatinine (0.6-1.3) mg/dl Est Cr Clr Drug Dosing ml/min Est GFR ( Amer) ml/min Est GFR (Non-Af Amer) ml/min BUN/Creatinine Ratio (10-20) Glucose (70-99) mg/dl POC Glucose (70-99) mg/dl POC Glucose (other) (70-99) mg/dl Calcium (8.5-10.1) mg/dl POC Ioniz Calcium Wiley (1.12-1.32) mmol/l Magnesium (1.8-2.4) mg/dl Total Bilirubin (0.2-1) mg/dl AST (15-37) U/L ALT (12-78) U/L Alkaline Phosphatase (45-117) U/L Total Creatine Kinase (26-192) U/L Troponin I 0.333 H* (0-0.045) ng/ml Total Protein (6.4-8.2) gm/dl Albumin (3.4-5.0) gm/dl Globulin (2.5-4.0) gm/dl Albumin/Globulin Ratio (0.9-2) Beta-Hydroxybutyric Acd (0.2-2.81) mg/dl TSH (0.300-4.500) uIu/ml Urine Color Yellow Urine Appearance Clear (Clear) Urine pH 5.0 (4.5-7.5) Ur Specific [place] 1.045 H (1.000-1.030) Urine Protein Negative (Negative) Urine Glucose (UA) 3+ H (Negative) Urine Ketones Negative (Negative) Urine Blood Negative (Negative) Urine Nitrite Negative (Negative) Urine Bilirubin Negative (Negative) Urine Urobilinogen Negative (Negative) Ur Leukocyte Esterase Negative (Negative) SARS-CoV-2, RNA, NAAT NEGATIVE (NEGATIVE) 02/20/21 02/20/21 02/20/21 Range/Units 13:33 13:25 13:25 WBC (4.8-10.8) K/uL RBC (4.2-5.4) M/uL Hgb (12.0-16.0) g/dL POC Hgb 10.5 L (12.0-16.0) g/dl Hct (37-47) % POC Hct 31 L (37-47) % MCV (80-100) fL MCH (25-34) pg MCHC (32-36) g/dL RDW Std Deviation (36.4-46.3) fL RDW Coeff of Barrett (11.5-14.5) % Plt Count (130-400) K/uL MPV (7.4-10.4) fL Immature Gran % (Auto) % Neut % (Auto) % Lymph % (Auto) % Hall % (Auto) % Eos % (Auto) % Baso % (Auto) % Neut # (Auto) (1.4-6.5) K/uL Lymph # (Auto) (1.2-3.4) K/uL Hall # (Auto) (0.11-0.59) K/uL Eos # (Auto) (0-0.5) K/uL Baso # (Auto) (0-0.2) K/uL Immature Gran # (Auto) (0.00-0.02) K/uL PT 10.4 (9.0-12.0) Seconds INR 1.0 (0.9-1.1) APTT 21.9 (21.0-31.0) Seconds PTT Ratio 0.8 POC Sodium 136 (135-144) mmol/L Sodium 136 (136-145) mmol/L POC Potassium 4.6 (3.3-5.0) mmol/L Potassium 4.5 (3.5-5.1) mmol/L POC Chloride 98 L (101-112) mmol/L Chloride 101 (98-107) mmol/L Carbon Dioxide 27 (21-32) mmol/L POC Total CO2 26 (24-31) mmol/L Anion Gap 8.0 (3-11) POC Anion Gap 18.0 (16-25) mmol/L POC BUN 38 H (7-18) mg/dl BUN 41 H (7-18) mg/dl Creatinine 1.35 H (0.6-1.2) mg/dl POC Creatinine 1.2 (0.6-1.3) mg/dl Est Cr Clr Drug Dosing 39.2 ml/min Est GFR ( Amer) 46.3 ml/min Est GFR (Non-Af Amer) 40.0 ml/min BUN/Creatinine Ratio 30.2 H (10-20) Glucose 355 H* (70-99) mg/dl POC Glucose (70-99) mg/dl POC Glucose (other) 344 H (70-99) mg/dl Calcium 9.2 (8.5-10.1) mg/dl POC Ioniz Calcium Wiley 1.31 (1.12-1.32) mmol/l Magnesium 1.6 L (1.8-2.4) mg/dl Total Bilirubin 0.5 (0.2-1) mg/dl AST 22 (15-37) U/L ALT 162 H (12-78) U/L Alkaline Phosphatase 247 H (45-117) U/L Total Creatine Kinase 77 (26-192) U/L Troponin I 0.038 (0-0.045) ng/ml Total Protein 6.1 L (6.4-8.2) gm/dl Albumin 2.8 L (3.4-5.0) gm/dl Globulin 3.3 (2.5-4.0) gm/dl Albumin/Globulin Ratio 0.8 L (0.9-2) Beta-Hydroxybutyric Acd 1.24 (0.2-2.81) mg/dl TSH 2.180 (0.300-4.500) uIu/ml Urine Color Urine Appearance (Clear) Urine pH (4.5-7.5) Ur Specific [place] (1.000-1.030) Urine Protein (Negative) Urine Glucose (UA) (Negative) Urine Ketones (Negative) Urine Blood (Negative) Urine Nitrite (Negative) Urine Bilirubin (Negative) Urine Urobilinogen (Negative) Ur Leukocyte Esterase (Negative) SARS-CoV-2, RNA, NAAT (NEGATIVE) 02/20/21 Range/Units 13:25 WBC 9.90 (4.8-10.8) K/uL RBC 3.66 L (4.2-5.4) M/uL Hgb 10.7 L (12.0-16.0) g/dL POC Hgb (12.0-16.0) g/dl Hct 32.7 L (37-47) % POC Hct (37-47) % MCV 89.3 (80-100) fL MCH 29.2 (25-34) pg MCHC 32.7 (32-36) g/dL RDW Std Deviation 42.0 (36.4-46.3) fL RDW Coeff of Barrett 13.0 (11.5-14.5) % Plt Count 215 (130-400) K/uL MPV 10.1 (7.4-10.4) fL Immature Gran % (Auto) 0.2 % Neut % (Auto) 78.1 % Lymph % (Auto) 14.4 % Hall % (Auto) 6.4 % Eos % (Auto) 0.5 % Baso % (Auto) 0.4 % Neut # (Auto) 7.73 H (1.4-6.5) K/uL Lymph # (Auto) 1.43 (1.2-3.4) K/uL Hall # (Auto) 0.63 H (0.11-0.59) K/uL Eos # (Auto) 0.05 (0-0.5) K/uL Baso # (Auto) 0.04 (0-0.2) K/uL Immature Gran # (Auto) 0.02 (0.00-0.02) K/uL PT (9.0-12.0) Seconds INR (0.9-1.1) APTT (21.0-31.0) Seconds PTT Ratio POC Sodium (135-144) mmol/L Sodium (136-145) mmol/L POC Potassium (3.3-5.0) mmol/L Potassium (3.5-5.1) mmol/L POC Chloride (101-112) mmol/L Chloride (98-107) mmol/L Carbon Dioxide (21-32) mmol/L POC Total CO2 (24-31) mmol/L Anion Gap (3-11) POC Anion Gap (16-25) mmol/L POC BUN (7-18) mg/dl BUN (7-18) mg/dl Creatinine (0.6-1.2) mg/dl POC Creatinine (0.6-1.3) mg/dl Est Cr Clr Drug Dosing ml/min Est GFR ( Amer) ml/min Est GFR (Non-Af Amer) ml/min BUN/Creatinine Ratio (10-20) Glucose (70-99) mg/dl POC Glucose (70-99) mg/dl POC Glucose (other) (70-99) mg/dl Calcium (8.5-10.1) mg/dl POC Ioniz Calcium Wiley (1.12-1.32) mmol/l Magnesium (1.8-2.4) mg/dl Total Bilirubin (0.2-1) mg/dl AST (15-37) U/L ALT (12-78) U/L Alkaline Phosphatase (45-117) U/L Total Creatine Kinase (26-192) U/L Troponin I (0-0.045) ng/ml Total Protein (6.4-8.2) gm/dl Albumin (3.4-5.0) gm/dl Globulin (2.5-4.0) gm/dl Albumin/Globulin Ratio (0.9-2) Beta-Hydroxybutyric Acd (0.2-2.81) mg/dl TSH (0.300-4.500) uIu/ml Urine Color Urine Appearance (Clear) Urine pH (4.5-7.5) Ur Specific [place] (1.000-1.030) Urine Protein (Negative) Urine Glucose (UA) (Negative) Urine Ketones (Negative) Urine Blood (Negative) Urine Nitrite (Negative) Urine Bilirubin (Negative) Urine Urobilinogen (Negative) Ur Leukocyte Esterase (Negative) SARS-CoV-2, RNA, NAAT (NEGATIVE) Diagnostic Findings Abdomen/Pelvis CT 02/20/21 13:01 CT abd pelvis IV con only CLINICAL HISTORY: Status post fall with pain COMPARISON STUDY: 04/01/2020 TECHNIQUE: Standard CT of the Abdomen and Pelvis was performed with IV contrast. A dose lowering technique was utilized adhering to the principles of ALARA. Contrast Volume: Omnipaque 320, 95 ml. The patient did not receive oral contrast. FINDINGS: Lung base: The lung bases are clear. Abdominal cavity: There is no evidence for abdominal mass, adenopathy or ascites. Liver: There is homogeneous attenuation of the liver parenchyma. There is no evidence for enhancing mass lesion. Spleen: There is homogeneous attenuation of the splenic parenchyma. There is no enhancing mass lesion. Pancreas: There is homogeneous attenuation of the pancreatic parenchyma. There is no evidence for mass lesion or peripancreatic fluid collection. Gall Bladder: The gallbladder is again well distended with cholelithiasis. There is no CT evidence for acute cholecystitis. Adrenal glands: The adrenal glands are normal in size and attenuation. There is no evidence for enhancing mass lesion. Kidneys: There is homogeneous attenuation of the renal parenchyma bilaterally. There is no evidence for renal calculus or hydronephrosis. There is no evidence for enhancing mass. Bowel: Small to moderate size hiatal hernia is present. The bowel loops are normally placed within the abdomen and pelvis without evidence for dilatation or obstruction. There is mild fecal stasis without evidence for impaction or obstruction. There are no inflammatory changes present. There is no evidence for free air. There is a normal appendix in the right lower quadrant. Bladder: The bladder is within normal limits with no evidence for focal mass, calculus or diverticulum. : There is no evidence for pelvic mass or adenopathy. There is no evidence for pelvic ascites. Vasculature: There is no evidence for aneurysmal dilatation of the abdominal aorta. Mild atherosclerotic calcification is present. Osseous structures: There is no acute osseous pathology. Prominent degenerative changes are seen within the lumbar spine. There are also degenerative changes of the SI joints. IMPRESSION: 1. No acute intra-abdominal or pelvic abnormality. 2. Mild fecal stasis without impaction or obstruction. 3. Small to moderate size hiatal hernia. 4. Cholelithiasis without CT evidence for acute cholecystitis is again seen. 5. Additional nonacute findings are delineated above. ACT 112: Negative or not required by law. Electronically signed by: Kirk Sosa M.D. 02/20/2021 2:[address] 02/20/21 13:01 CT cervical spine wo con CLINICAL HISTORY: Status post fall. Pain. COMPARISON STUDY: 11/19/2019 CT DOSE: 3229.39 mGy.cm TECHNIQUE: Standard CT of the Cervical Spine was performed without IV contrast. A dose lowering technique was utilized adhering to the principles of ALARA. FINDINGS: Bones: There is a comminuted, nondisplaced fracture through the C6 vertebral body. It is considered a stable fracture as there is fusion of C5 and C6 disc space level and there is bridging osteophyte formation between C6 and C7 anteriorly. There is no posterior extrusion of a fracture fragment into the spinal canal. The remaining vertebral bodies are intact. There is no evidence for malalignment. The heights of the vertebral bodies are maintained. The vertebral bodies are in anatomic alignment. The odontoid is intact. Degenerative changes are seen at the atlantoaxial articulation. Disc spaces:There is moderate to marked disc space narrowing at C4-5. There is again fusion at the C5-6 level due to bridging osteophyte formation anteriorly and posteriorly. 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 Soft tissues:The prevertebral soft tissues are within normal limits. IMPRESSION: Evidence for a stable, comminuted fracture through the body of C6 as described above. No posterior extrusion into the spinal canal is identified. Degenerative disc and degenerative joint disease are also present. Emergency Department was called with results of the study. ACT 112: Negative or not required by law. Electronically signed by: Kirk Sosa M.D. 02/20/2021 1:[address] 02/20/21 13:01 CT chest diagnostic w con CLINICAL HISTORY: Status post fall with pain COMPARISON STUDY: Previous CTA chest from 04/10/2018 TECHNIQUE: Standard CT of the Chest was performed with IV contrast. A dose lowering technique was utilized adhering to the principles of ALARA. Contrast Volume: Optiray 320, 95 ml FINDINGS: Airway: The airway is clear. No endobronchial lesion is identified. Lungs: The lungs are clear of acute alveolar opacities, air bronchograms or pulmonary nodules. Pleura: There is no evidence for pleural effusion. There is no evidence for pneumothorax. Mediastinum: There is no evidence for pathologic adenopathy. The heart size is within normal limits. There is coronary artery calcification. The thoracic aorta is within normal limits. Mild atherosclerotic calcification is present. There is no evidence for pericardial effusion. There is asymmetric elevation left hemidiaphragm. Upper abdomen: The adrenal glands are normal bilaterally. There is a small to moderate size hiatal hernia. Osseous structures: There is no acute osseous pathology. Degenerative changes are seen within the thoracic spine. IMPRESSION: No acute chest disease. Nonacute findings as delineated above. ACT 112: Negative or not required by law. Electronically signed by: Kirk Sosa M.D. 02/20/2021 1:[address] 02/20/21 13:01 CT facial bones wo con CLINICAL HISTORY: Status post fall with left-sided facial pain COMPARISON STUDY: No previous studies for comparison. TECHNIQUE: Standard CT of the Facial Bones and Orbits was performed without IV contrast. A dose lowering technique was utilized adhering to the principles of ALARA. FINDINGS: Bones: There are comminuted, minimally displaced fractures present involving the lateral brown of the nasal bones, right greater than left. Cortical offset is present. There is also nondisplaced fracture at the bridge of the nasal bone. Nasal septum is slightly deviated to the right. The zygomatic arches are intact bilaterally. There is no definite fracture of the maxilla. The orbital rims are intact bilaterally. Mandible is intact with degenerative changes at the temporomandibular joint. Paranasal sinuses:There is mucosal thickening with evidence for fluid level in the left maxillary sinus. Mucosal thickening of the ethmoid air cells is also seen. Soft tissues:There is soft tissue swelling over the forehead and nose. IMPRESSION: 1. Comminuted, essentially nondisplaced fracture nasal bones as described. 2. Slight deviation nasal septum to the right. 3. No evidence for maxillary fracture. 4. Mucosal thickening of the left maxillary antrum and ethmoid air cells. 5. Soft tissue swelling over the forehead and nose. ACT 112: Negative or not required by law. Electronically signed by: Kirk Sosa M.D. 02/20/2021 1:[address] 02/20/21 13:01 CT head/brain wo con CLINICAL HISTORY: Status post fall with left-sided facial pain COMPARISON STUDY: 11/19/2019 TECHNIQUE: Standard CT of the Brain was performed without IV contrast. A dose lowering technique was utilized adhering to the principles of ALARA. FINDINGS: Extraaxial space: There is no evidence for subdural hematoma. There are no extra-axial fluid collections. Ventricles and cisterns: The ventricles are again mildly to moderately dilated bilaterally. There is no evidence for midline shift or mass effect. Parenchyma: There is no subarachnoid or intraparenchymal hemorrhage. There is no evidence for an acute infarct or cerebral edema. There is mild cerebral cortical atrophy and decreased attenuation in the periventricular white matter representing remote small vessel disease. There are no gross mass lesions. Osseous structures: There are nasal bone fractures present. There is no evidence for an acute fracture. There is a fluid level in the left maxillary antrum. The remaining visualized paranasal sinuses are clear. The mastoid air cells are clear bilaterally. Soft tissues: There is no evidence for focal soft tissue swelling. IMPRESSION: No acute intracerebral pathology. Mild cerebral cortical atrophy and remote small vessel disease are again seen. Multiple nasal bone fractures and fluid level within the left maxillary antrum are present. Please see CT facial bones for further evaluation. ACT 112: Negative or not required by law. Electronically signed by: Kirk Sosa M.D. 02/20/2021 1:31 PM ECG Additional Comments: Normal sinus rhythm Normal ECG When compared with ECG of 11-APR-2018 02:19, T wave inversion now evident in Inferior leads T wave amplitude has increased in Lateral leads Code Status & VTE Plan Code Status Full code VTE Prophylaxis Plan VTE Prophylaxis will be ordered: Yes PG Care Time/CCT Total # of Minutes Spent Total Time Spent with Patient: Total time spent is greater than 50% in coordination of care (as documented) at patient's floor/unit and/or counseling patient: Coding Level of Care Code INT OBSERVATION CARE 70M LVL 3 Diagnoses Fracture closed, nasal bone S02.2XXA Encounter type: initial encounter Acute anterior epistaxis R04.0 C6 cervical fracture S12.501A Encounter type: initial encounter Fracture alignment: nondisplaced Fracture morphology: unspecified fracture morphology Fracture type: closed Fall W19.XXXA Encounter type: initial encounter Contusion of face S00.83XA Encounter type: initial encounter Hypertension I10 Hypertension type: essential hypertension Cardiomyopathy I42.9 Type 2 diabetes mellitus, uncontrolled E11.649 Glycemic state: with hypoglycemia Coma presence: without coma Diabetic peripheral neuropathy associated with type 2 diabetes mellitus E11.42 Dyslipidemia E78.5 Depression F32.9 GERD (gastroesophageal reflux disease) K21.9 Acute respiratory failure with hypoxia J96.01 Elevated troponin R77.8 Renal insufficiency N28.9 Acute blood loss anemia D62 (1) Fracture closed, nasal bone Encounter type: initial encounter Qualified Code(s): S02.2XXA - Fracture of nasal bones, initial encounter for closed fracture (2) C6 cervical fracture Encounter type: initial encounter Fracture alignment: nondisplaced Fracture morphology: unspecified fracture morphology Fracture type: closed Qualified Code(s): S12.501A - Unspecified nondisplaced fracture of sixth cervical edd tebra, initial encounter for closed fracture (3) Fall Encounter type: initial encounter Qualified Code(s): W19.XXXA - Unspecified fall, initial encounter (4) Contusion of face Encounter type: initial encounter Qualified Code(s): S00.83XA - Contusion of other part of head, initial encounter (5) Hypertension Hypertension type: essential hypertension Qualified Code(s): I10 - Essential (primary) hypertension (6) Type 2 diabetes mellitus, uncontrolled Glycemic state: with hypoglycemia Coma presence: without coma Qualified Code(s): E11.649 - Type 2 diabetes mellitus with hypoglycemia without coma
--- NOTE | 2021-02-20 17:19 | Electrocardiogram Report ---
Test Reason : Blood Pressure : / mmHG Vent. Rate : 077 BPM Atrial Rate : 077 BPM P-R Int : 184 ms QRS Dur : 092 ms QT Int : 388 ms P-R-T Axes : 102 003 006 degrees QTc Int : 439 ms Poor data quality, interpretation may be adversely affected Normal sinus rhythm Normal ECG When compared with ECG of 11-APR-2018 02:19, T wave inversion now evident in Inferior leads T wave amplitude has increased in Lateral leads Confirmed by Aubrey Jennings ([id number]) on 02/20/2021 5:18:31 PM Referred By: ER Confirmed By:Hua Jennings
[2021-02-20] MEDS ORDERED: MAGNESIUM SULFATE / D5W 1 GM/100 ML BAG IV STA (17:26)
[2021-02-20] MEDS ORDERED: CARBOHYDRATES FOR HYPOGLYCEMIA PO PRN (22:50)
[2021-02-20] MEDS ORDERED: GLUCAGON FOR INJ 1 MG VIAL SQ PRN (22:50)
[2021-02-20] MEDS ORDERED: CYCLOBENZAPRINE HCL 10 MG TAB PO PRN (22:50)
[2021-02-20] MEDS ORDERED: ACETAMINOPHEN 325 MG TAB PO PRN (22:50)
[2021-02-20] MEDS ORDERED: ONDANSETRON INJ 2 MG/ML 2 ML VIAL IV PRN (22:50)
[2021-02-20] MEDS ORDERED: GLUCOSE 40% GEL 15 GM TUBE PO PRN (22:50)
[2021-02-20] MEDS ORDERED: DEXTROSE 50% 50 ML SYRINGE IV PRN (22:50)
[2021-02-20] MEDS ORDERED: GLUCOSE 10 TABS/TUBE PO PRN (22:50)
[2021-02-20] MEDS ORDERED: ALBUTEROL HFA 8 GM INHALER INH PRN (22:57)
[2021-02-20 23:23] LABS: Appearance Urine Clear (Clear); Bilirubin Urine Negative (Negative); Blood Urine Negative (Negative); Color Urine Yellow; Glucose Urine UA 3+ (Negative); Ketones Urine Negative (Negative); Leukocyte Esterase Urine Negative (Negative); Nitrite Urine Negative (Negative); Protein Urine Negative (Negative); Specific Gravity Urine 1.045 (1.000-1.030); Urobilinogen Urine Negative (Negative)
[2021-02-20] MEDS: MoRPHine SULFATE 2 MG/ML CARP IV PRN (23:31)
[2021-02-20] MEDS: GABAPENTIN 300 MG CAP PO SCH (23:36)
[2021-02-20] MEDS: AMOXICILLIN/CLAVULANATE 875 MG TAB PO SCH (23:36)
[2021-02-20] MEDS: busPIRone 15 MG TAB PO SCH (23:37)
[2021-02-20] MEDS: INSULIN GLARGINE SOLOSTAR 100 UNITS/ML 3 ML PEN SQ SCH (23:38)
[2021-02-20] MEDS: INSULIN ASPART 100 UNITS/ML 3 ML PEN SC SCH (23:40)
[2021-02-21] MEDS: MoRPHine SULFATE 2 MG/ML CARP IV PRN ×5 (06:28→20:38)
[2021-02-21] MEDS ORDERED: PERFLUTREN LIPID MICROSPHERE (DEFINITY) IV ONE (07:18)
[2021-02-21] MEDS: busPIRone 15 MG TAB PO SCH ×3 (08:03→20:37)
[2021-02-21] MEDS: CHOLECALCIFEROL 1,000 UNITS 25 MCG TAB PO SCH (08:04)
[2021-02-21] MEDS: ASPIRIN 81 MG ECTAB PO SCH (08:04)
[2021-02-21] MEDS: PANTOprazole 40 MG TAB PO SCH (08:04)
[2021-02-21] MEDS: GABAPENTIN 300 MG CAP PO SCH ×3 (08:04→20:38)
[2021-02-21] MEDS: ROSUVASTATIN CALCIUM 20 MG TAB PO SCH (08:04)
[2021-02-21] MEDS: CYANOCOBALAMIN 500 MCG TABLET (VITAMIN B-12) PO SCH (08:04)
[2021-02-21] MEDS: AMOXICILLIN/CLAVULANATE 875 MG TAB PO SCH ×2 (08:05→17:01)
[2021-02-21] MEDS: INSULIN ASPART 100 UNITS/ML 3 ML PEN SC SCH ×4 (08:06→20:34)
[2021-02-21] MEDS: VENLAFAXINE HCL XR 150 MG CAPXR PO SCH (08:56)
[2021-02-21 09:33] LABS: Basophils # (auto) 0.05 K/uL (0-0.2); Basophils % (auto) 0.5 %; Eosinophils % (auto) 2.1 %; Hematocrit (blood only) 36.2 % (37-47); Hemoglobin 11.7 g/dL (12.0-16.0); Immature Granulocytes # (auto) 0.02 K/uL (0.00-0.02); Immature Granulocytes % (auto) 0.2 %; Lymphocytes % (auto) 19.2 %; Mean Corpuscular Hemoglobin 29.3 pg (25-34); Mean Corpuscular Hgb Conc 32.3 g/dL (32-36); Mean Corpuscular Volume 90.5 fL (80-100); Mean Platelet Volume 10.3 fL (7.4-10.4); Monocytes # (auto) 0.62 K/uL (0.11-0.59); Monocytes % (auto) 6.6 %; Neutrophils # (auto) 6.68 K/uL (1.4-6.5); Neutrophils % (auto) 71.4 %; Platelet Count 247 K/uL (130-400); RDW Coefficient of Variation 13.3 % (11.5-14.5); RDW Standard Deviation 43.6 fL (36.4-46.3); White Blood Count 9.37 K/uL (4.8-10.8)
[2021-02-21 10:10] LABS: Albumin Globulin Ratio 0.7 (0.9-2); BUN Creatinine Ratio 25.6 (10-20); Bilirubin,Total 0.8 mg/dl (0.2-1); Calcium 9.2 mg/dl (8.5-10.1); Creatinine Clr Calc Pharmacy 39.8 ml/min; Est GFR (African American) 47.2 ml/min; Est GFR (Non-African American) 40.7 ml/min; Globulin 4.1 gm/dl (2.5-4.0); Magnesium 1.8 mg/dl (1.8-2.4); Potassium 4.7 mmol/L (3.5-5.1); Total Protein 7.1 gm/dl (6.4-8.2)
[2021-02-21 10:21] LABS: Beta-Hydroxybutyrate 5.96 mg/dl (0.2-2.81)
[2021-02-21 10:30] LABS: Estimated Average Glucose 263 mg/dl; Hemoglobin A1C 10.8 % (4.5-5.6)
--- NOTE | 2021-02-21 11:13 | Consultation ---
Date of Consultation February 21, 2021 Assessment & Plan (1) C6 cervical fracture: MRI, clinical findings and plan of care have been reviewed with Dr. Kirkland. Treatment plan is conservative. No surgical intervention warranted at this time. Maintain [place] J collar at all times. May remove when eating or bathing. Would recommend follow-up start cervical spine x-rays next week. No lifting over 5 pounds. ambulate ad ady. History of Present Illness Reason for Consultation: Closed C6 fracture status post fall Attending Physician: Jim Hatfield DO History of Present Illness Is a very pleasant 70-year-old female who yesterday was walking a dog up a hill. She sustained a fall landing face first on the mikey ewalk. She denies any loss of consciousness. She was unable to get up on her own. Someone passing by was able to help her and then called for an ambulance and she was transported to [facility] emergency room for further evaluation. She was found to have nasal fractures, C6 fracture and multiple facial contusions. She ambulates independently typically. She lives with her mother. She does note posterior cervical neck pain. Denies radicular arm pain, paresthesia, numbness Allergies Allergy/AdvReac Type Severity Reaction Status Date / Time No Known Allergies Allergy Verified 02/20/21 14:07 Home Medications Medication Instructions Recorded Confirmed Type blood-glucose meter (OneTouch #1 ea 10/29/18 01/17/21 History UltraMini) cholecalciferol (vitamin D3) 50 2,000 units PO DAILY 11/08/18 02/20/21 History mcg (2,000 unit) capsule cyanocobalamin (vitamin B-12) 1,000 mcg PO DAILY 11/08/18 02/20/21 History 1,000 mcg tablet aspirin 81 mg tablet,delayed 81 mg PO DAILY #90 tab 06/23/19 02/20/21 Rx release cyclobenzaprine 10 mg tablet 10 mg PO TID PRN tab 12/12/19 02/20/21 History pen needle, diabetic 32 gauge x #200 ea 01/29/20 02/20/21 Rx 5/32" (BD Ultra-Fine Marleny Pen Needle) lisinopril 2.5 mg tablet 2.5 mg PO QAM #90 tab 04/06/20 02/20/21 Rx albuterol sulfate 90 mcg/actuation 2 puff INH Q4H PRN #8.5 g 06/24/20 02/20/21 Rx aerosol inhaler (ProAir HFA) ondansetron 8 mg disintegrating 8 mg PO Q8H PRN #42 tab 07/23/20 02/20/21 Rx tablet gabapentin 300 mg capsule 300 mg PO TID #90 cap 08/09/20 02/20/21 Rx amoxicillin 500 mg capsule See Rx Instructions PO .COMPLEX 08/19/20 02/20/21 Rx #16 cap Wedge BusterTouch Ultra Blue Test Strip #300 ea NS 09/13/20 02/20/21 Rx (blood sugar diagnostic) metformin 1,000 mg tablet 1,000 mg PO BID #180 tab 09/14/20 02/20/21 Rx insulin lispro 100 unit/mL 0 unit SUBCUT TID ml 09/23/20 02/20/21 History subcutaneous pen (Humalog KwikPen (U-100) Insulin) rosuvastatin 20 mg tablet 20 mg PO QAM #90 tab 10/12/20 02/20/21 Rx diclofenac sodium 75 mg 75 mg PO BID #60 tab 10/20/20 02/20/21 Rx tablet,delayed release insulin glargine 100 unit/mL (3 44 unit SQ QPM ml 11/25/20 02/20/21 History mL) subcutaneous pen (Lantus Solostar U-100 Insulin) esomeprazole magnesium 40 mg 40 mg PO QAM #90 cap 12/06/20 02/20/21 Rx capsule,delayed release (Nexium) buspirone 15 mg tablet 15 mg PO TID #90 tab 01/31/21 02/20/21 Rx venlafaxine 150 mg 150 mg PO DAILY 02/20/21 02/20/21 History capsule,extended release 24 hr Patient History Medical History Anxiety Cardiomyopathy Chronic osteoarthritis Depression Diabetic peripheral neuropathy associated with type 2 diabetes mellitus Dysesthesia Dyslipidemia Frequent falls Gastroparesis GERD (gastroesophageal reflux disease) Hiatal hernia Small Hypertension Lumbar radiculopathy Mixed conductive and sensorineural hearing loss of both ears NSTEMI (non-ST elevated myocardial infarction) Pancreatic cyst [facility] Perianal abscess Urinary incontinence Venous insufficiency (chronic) (peripheral) Vitamin D deficiency Vitiligo Surgical History History of total knee replacement RT TKA APPROX 15 YEARS AGO L TKA 01/23/2018 Hx of cardiac cath Mar 2018. Normal coronary arteries. Family History Mother Hypertension Father Breast cancer Family/Other Breast cancer Unknown Osteoarthritis Denies family history of Ovarian cancer Prostate cancer Colorectal cancer Lung disease Social History Smoking Status: Never smoker Second Hand Exposure: No; Hx Alcohol Use: No Hx Substance Use: No Preferred Language: Japanese Communication Ability: Effective Communication Ability Comment: D/t facial edema from fall pt cannot see well enough to sign documents now Visual Impairment: Diminished Hearing Ability: Normal Instant Powder Supervisor Required: No Beliefs That Will Affect Care: None marital status: Current Living Situation: Parent Current Living Situation Comment: Lives with very active 88 year old mother current occupational status: disabled Other Information That Helps Us Care for You: No Feels Safe at Home: Yes Safety Concerns: Feels Safe At This Time Childhood Exposure to Second-Hand Smoke: No caffeine: Yes Dental Care, Regularly: Yes Physical Activity Frequency: 3-4 Times per Week Physical Activity Frequency Comment: walk Seatbelt Use: always Sunscreen Use: No (not in the sun) Do you think of yourself as: straight/heterosexual Assistive Devices: Glasses Review of Systems Review of Systems: All systems reviewed & are unremarkable except as noted in HPI & below Physical Exam Physical Exam: She is seen in room 285 bed 2. Alert and oriented x3 Ecchymosis over both eyes, mid forehead, nose, swelling of the upper lip Speech is appropriate [place] J collar intact Strength is 5 5 bilateral finger intrinsics, finger extensors, wrist extensors, wrist flexors, biceps, triceps, deltoid Modestly positive left shoulder pain with range of motion no ecchymosis or lacerations around this region She is tender to palpation to the midline lower cervical region. No palpable step-offs. Constitutional: well developed Eyes: See above ENMT: See above Neck: normal visual inspection Respiratory: normal respiratory effort Cardiovascular: Extremities: normal capillary refill Chest (Breasts): Chest: normal inspection of chest Gastrointestinal (Abdomen): Inspection/Auscultation: abdomen normal to inspection Musculoskeletal: Extremities: extremities normal to inspection and strength 5/5 throughout Skin: normal turgor Trauma: + contusion Neurologic: patellar DTR's 2+ bilat, sensation intact normal touch/pain/proprioception and moves all extremities Psychiatric: Orientation: alert and oriented x 3 Results & Data ([facility]) Vital Signs (Past 12 Hours) Vital Signs Temp Pulse Pulse Resp BP BP Pulse Ox 02/21/21 10:52 36.5 C 78 18 112/69 90 02/21/21 07:00 37.1 C 76 78 18 100/62 90 02/21/21 02:50 36.8 C 72 18 98/60 L 95 02/21/21 00:01 36.8 C 78 20 119/73 92 02/21/21 00:00 82 Diagnostic Findings [place], [place] [phone] CT Scan Report Patient:PAUL PERSON Admit Date:02/20/21 MR#:[id number] Address1:[address] [place] [address] Acct ID:[id number] Address2:[place] [address] Date:1950 [facility] Zip:[place] [address] Age:70 Location:ED Sex:F Room/Bed: Att Phy: Diagnosis:FALL, FACIAL INJURY Mar Phy:PCP,NO Service Date:02/20/21 Fam Phy: Interpreting Phy:Kirk Sosa MDAdmit Phy: Ordering Phy:Cody Gutierrez DO cc: ~ CT cervical spine wo con CLINICAL HISTORY: Status post fall. Pain. COMPARISON STUDY: 11/19/2019 CT DOSE: 3229.39 mGy.cm TECHNIQUE: Standard CT of the Cervical Spine was performed without IV contrast. A dose lowering technique was utilized adhering to the principles of ALARA. FINDINGS: Bones: There is a comminuted, nondisplaced fracture through the C6 vertebral body. It is considered a stable fracture as there is fusion of C5 and C6 disc space level and there is bridging osteophyte formation between C6 and C7 anteriorly. There is no posterior extrusion of a fracture fragment into the spinal canal. The remaining vertebral bodies are intact. There is no evidence for malalignment. The heights of the vertebral bodies are maintained. The vertebral bodies are in anatomic alignment. The odontoid is intact. Degenerative changes are seen at the atlantoaxial articulation. Disc spaces:There is moderate to marked disc space narrowing at C4-5. There is again fusion at the C5-6 level due to bridging osteophyte formation anteriorly and posteriorly. 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 Soft tissues:The prevertebral soft tissues are within normal limits. IMPRESSION: Evidence for a stable, comminuted fracture through the body of C6 as described above. No posterior extrusion into the spinal canal is identified. Degenerative disc and degenerative joint disease are also present. Emergency Department was called with results of the study. ACT 112: Negative or not required by law. Electronically signed by: Kirk Sosa M.D. 02/20/2021 1:44 PM Dictated:02/20/214 Transcribed: 02/20/21 1334 (1) C6 cervical fracture Encounter type: initial encounter Fracture alignment: nondisplaced Fracture morphology: unspecified fracture morphology Fracture type: closed Qualified Code(s): S12.501A - Unspecified nondisplaced fracture of sixth cervical vertebra, initial encounter for closed fracture
--- NOTE | 2021-02-21 11:26 | XCELERA ---
[id number]
[2021-02-21] MEDS: ACETAMINOPHEN 325 MG TAB PO SCH ×2 (11:34→17:01)
--- NOTE | 2021-02-21 12:57 | Medical Student Progress Note ---
Date of Service February 21, 2021 Assessment & Plan (1) Fracture closed, nasal bone: Plan: Secondary to fall With bilateral nasal bone fractures without significant displacement with fluid in left maxillary sinus Pain control with IV morphine as needed No further epistaxis Cautioned her not to blow her nose * Follow-up with ENT, Dr. Connor, as an outpatient in 1 week * Continue prophylactic antibiotics with amoxicillin-clavulanic acid 875-125 mg p.o. twice daily 6 days Pain control with PO acetaminophen, PO oxycodone PRN, continue IV morphine PRN Encounter type: initial encounter Qualified Code(s): S02.2XXA - Fracture of nasal bones, initial encounter for closed fracture (2) C6 cervical fracture: Plan: With acute fracture to the C6 vertebral body secondary to fall Fortunately is a stable fracture given fusion to C5 with osteophytes and she has no focal neurological deficits at this time Seen by orthopedics, who does not recommend surgery Continue [place] J collar for 6-8 weeks No lifting more than 5 lbs Cervical spine x-ray next week Follow up with Dr. Kirkland Encounter type: initial encounter Fracture alignment: nondisplaced Fracture morphology: unspecified fracture morphology Fracture type: closed Qualified Code(s): S12.501A - Unspecified nondisplaced fracture of sixth cervical vertebra, initial encounter for closed fracture Present on Admission?: Yes (3) Elevated troponin: Plan: Troponin detectable on admission at 0.03, with some inferior T wave inversions on EKG change from previous She denies chest pain Repeated serial troponin 0.33, 0.81, 0.58, trending downward Had normal cardiac catheterization in 2019 Repeat EKG showed no significant change from previous Transthoracic echocardiogram showed normal LV systolic function, mild LV hypertrophy, mild aortic valve sclerosis, and elevated RV systolic pressure at 40-50 mmHg Recommend outpatient sleep study (4) Acute blood loss anemia: Plan: Hemoglobin 11.7, improved from 10.7, normocytic Was normal previously Most likely due to acute blood loss from epistaxis Follow CBC Present on Admission?: Yes (5) Type 2 diabetes mellitus, uncontrolled: Plan: This 70-year-old woman with a history of nonischemic cardiomyopathy and uncontrolled T2DM with peripheral neuropathy was admitted yesterday evening following a fall while walking a small dog. Upon arrival to the ED, she complained of facial pain, headache, and lower neck pain. Initially she had severe epistaxis, which resolved before arrival to ED. CT of the brain, head, neck, chest, abdomen, and pelvis demonstrated a stable fracture of the C6 vertebral body and bilateral nasal bone fracture without other significant abnormalities. Labs in the ED showed elevated BUN/Cr, elevated glucose, reduced oxygen saturation, which have since improved. Last hemoglobin A1c greater than 10% Follows with endocrinology Continue home Lantus and continue NovoLog sliding scale insulin Accu-Cheks, ADA diet Hold home Metformin Coma presence: without coma Glycemic state: with hypoglycemia Qualified Code(s): E11.649 - Type 2 diabetes mellitus with hypoglycemia without coma Present on Admission?: Yes (6) Renal insufficiency: Plan: BUN/creatinine mildly elevated upon admission likely secondary to mild dehydr ation Holding home diclofenac, lisinopril Follow BMP Present on Admission?: Yes (7) Cardiomyopathy: Plan: Nonischemic cardiomyopathy-previously had reduced EF but has now resolved after being on metoprolol lisinopril Metoprolol has now been discontinued and she has been discharged from the care of a airplane designer She remains on low-dose of lisinopril, but holding for now as above due to renal insufficiency and mildly low blood pressures on arrival Echocardiogram as above (8) Dyslipidemia: Plan: Continue rosuvastatin (9) Diabetic peripheral neuropathy associated with type 2 diabetes mellitus: Plan: Continue home gabapentin (10) Depression: Plan: Continue venlafaxine and BuSpar Plan: Disposition: med-surg with telemetry DVT prophylaxis: SCDs Diet: carb consistent Admission and Anticipated Discharge Date Admission Date: February 20, 2021 Anticipated date of discharge: 02/22/21 Supervising Attestation I also saw the patient with the medical student and the resident physician and completed a clinical history and physical exam. 70-year-old female admitted 02/20/2021 after she fell while walking her dog. She unfortunately later on her face sustaining both a nasal bone fracture and a C6 vertebral body fracture along with contusions to the face. The patient denies losing consciousness but does not member tripping over anything specific to cause the fall. She is noted to have a history of peripheral neuropathy secondary to her diabetes along with some difficulty with balance, so this is theorized to have led to the fall. She was admitted to the hospital for pain control, orthopedic evaluation, and further observation. In addition to the above, she was noted to have a small elevation of her troponin upon admission. 103/66, 84, 18, 36.5, 90% room air Data Hemoglobin 11.7, platelet count 247 Sodium 135, BUN 34, creatinine 1.33 Glucose elevated at 284, 398, 222 Hemoglobin A1c 10.8% Troponin I 0.333, 0.[address] scan of the abdomen pelvis showed no acute processes. CT scan of the head was unremarkable CT scan of the face showed essentially nondisplaced nasal bone fractures with slight deviation of the nasal septum to the right. CT scan of the chest was unremarkable for acute processes. Assessment and plan C6 cervical fracture Conservative treatment, no surgical intervention warranted [place] J collar, may remove when eating or bathing Follow-up x-rays in 1 week No lifting over 5 pounds PT/OT consultation Nondisplaced nasal fracture Early oncology follow-up as outpatient Pain control Elevated troponin Serial troponin Denies any chest pain Acute blood loss anemia Suspect secondary epistaxis Stable at this point, trend CBC Subjective No acute events overnight. This morning the patient has been sitting up eating solids and drinking. She reports pain of upper incisors and surrounding teeth while eating, as well as pain of posterior lower neck. IV morphine has been helpful in relieving the pain. No chest pain or dyspnea. No vision changes. Chronic mild numbness of feet. Review of Systems Review of Systems: As per Subjective/HPI. Physical Exam Physical Exam: The patient was observed sitting up, eating solid breakfast foods, and wearing a [place] J cervical collar. Constitutional: well developed, well nourished and + obese Eyes: + periorbital abnormality (ecchymosis) ENMT: Nose: + external nose abnormality (Positive edema and ecchymosis) Respiratory: normal respiratory effort, lungs clear to auscultation Cardiovascular: Heart Sounds: + murmur (grade 3 systolic) Skin: Trauma: + contusion Neurologic: PERRL, EOMI, accommodation nl, no face palsy, no dysarthria moves all extremities and awake; no focal motor deficits Psychiatric: A+Ox3, euthymic affect Results & Data ([facility]) Vital Signs (Past 12 Hours) Vital Signs Temp Pulse Pulse Resp BP BP Pulse Ox 02/21/21 10:52 36.5 C 78 18 112/69 90 02/21/21 07:00 37.1 C 76 78 18 100/62 90 02/21/21 02:50 36.8 C 72 18 98/60 L 95
[2021-02-21] MEDS ORDERED: oxyCODONE HCL IR 5 MG TAB (IMMEDIATE RELEASE) PO PRN (13:07)
--- NOTE | 2021-02-21 14:27 | Electrocardiogram Report ---
Test Reason : Blood Pressure : / mmHG Vent. Rate : 074 BPM Atrial Rate : 074 BPM P-R Int : 172 ms QRS Dur : 090 ms QT Int : 388 ms P-R-T Axes : 015 002 003 degrees QTc Int : 430 ms Normal sinus rhythm When compared with ECG of 20-FEB-2021 13:31, No significant change was found Confirmed by Aubrey Jennings ([id number]) on 02/21/2021 2:27:31 PM Referred By: REFERRED SELF Confirmed By:Hua Jennings
[2021-02-21] MEDS: INSULIN GLARGINE SOLOSTAR 100 UNITS/ML 3 ML PEN SQ SCH (20:35)
[2021-02-22] MEDS: ACETAMINOPHEN 325 MG TAB PO SCH ×5 (00:16→23:56)
[2021-02-22 07:34] LABS: Albumin Level 3.2 gm/dl (3.4-5.0); BUN Creatinine Ratio 24.2 (10-20); Calcium 9.6 mg/dl (8.5-10.1); Creatinine Clr Calc Pharmacy 42.5 ml/min; Est GFR (African American) 50.8 ml/min; Est GFR (Non-African American) 43.9 ml/min; Potassium 4.9 mmol/L (3.5-5.1)
[2021-02-22 07:37] LABS: Albumin Globulin Ratio 0.8 (0.9-2); Bilirubin,Total 0.5 mg/dl (0.2-1); Total Protein 7.2 gm/dl (6.4-8.2)
[2021-02-22] MEDS: ASPIRIN 81 MG ECTAB PO SCH (08:46)
[2021-02-22] MEDS: oxyCODONE HCL IR 5 MG TAB (IMMEDIATE RELEASE) PO PRN ×3 (08:46→18:20)
[2021-02-22] MEDS: GABAPENTIN 300 MG CAP PO SCH ×3 (08:46→21:41)
[2021-02-22] MEDS: busPIRone 15 MG TAB PO SCH ×3 (08:47→21:41)
[2021-02-22] MEDS: INSULIN ASPART 100 UNITS/ML 3 ML PEN SC SCH ×5 (08:47→21:42)
[2021-02-22] MEDS: PANTOprazole 40 MG TAB PO SCH (08:47)
[2021-02-22] MEDS: CYANOCOBALAMIN 500 MCG TABLET (VITAMIN B-12) PO SCH (08:47)
[2021-02-22] MEDS: CHOLECALCIFEROL 1,000 UNITS 25 MCG TAB PO SCH (08:47)
[2021-02-22] MEDS: AMOXICILLIN/CLAVULANATE 875 MG TAB PO SCH ×2 (08:47→17:36)
[2021-02-22] MEDS: VENLAFAXINE HCL XR 150 MG CAPXR PO SCH (08:47)
[2021-02-22] MEDS: ROSUVASTATIN CALCIUM 20 MG TAB PO SCH (08:47)
--- NOTE | 2021-02-22 09:20 | Medical Student Progress Note ---
Date of Service February 22, 2021 Assessment & Plan (1) Fracture closed, nasal bone: Plan: Secondary to fall With bilateral nasal bone fractures without significant displacement with fluid in left maxillary sinus No further epistaxis Cautioned her not to blow her nose * Follow-up with ENT, Dr. Connor, as an outpatient in 1 week * Continue prophylactic antibiotics with amoxicillin-clavulanic acid 875-125 mg p.o. twice daily 6 days Pain control with PO acetaminophen, PO oxycodone PRN, continue IV morphine PRN Encounter type: initial encounter Qualified Code(s): S02.2XXA - Fracture of nasal bones, initial encounter for closed fracture (2) C6 cervical fracture: Plan: With acute fracture to the C6 vertebral body secondary to fall Fortunately is a stable fracture given fusion to C5 with osteophytes and she has no focal neurological deficits at this time Seen by orthopedics, who does not recommend surgery Continue [place] J collar for 6-8 weeks No lifting more than 5 lbs Cervical spine x-ray next week Follow up with Dr. Kirkland Encounter type: initial encounter Fracture alignment: nondisplaced Fracture morphology: unspecified fracture morphology Fracture type: closed Qualified Code(s): S12.501A - Unspecified nondisplaced fracture of sixth cervical vertebra, initial encounter for closed fracture (3) Elevated troponin: Plan: Troponin detectable on admission at 0.03, with some inferior T wave inversions on EKG change from previous She denies chest pain Repeated serial troponin 0.33, 0.81, 0.58, trending downward Had normal cardiac catheterization in 2019 Repeat EKG showed no significant change from previous Transthoracic echocardiogram showed normal LV systolic function, mild LV hypertrophy, mild aortic valve sclerosis, and elevated RV systolic pressure at 40-50 mmHg Recommend outpatient sleep study (4) Acute blood loss anemia: Plan: Hemoglobin 11.7, improved from 10.7, normocytic Was normal previously Most likely due to acute blood loss from epistaxis Follow CBC (5) Type 2 diabetes mellitus, uncontrolled: Plan: This 70-year-old woman with a history of nonischemic cardiomyopathy and uncontrolled T2DM with peripheral neuropathy was admitted yesterday evening following a fall while walking a small dog. Upon arrival to the ED, she complained of facial pain, headache, and lower neck pain. Initially she had severe epistaxis, which resolved before arrival to ED. CT of the brain, head, neck, chest, abdomen, and pelvis demonstrated a stable fracture of the C6 vertebral body and bilateral nasal bone fracture without other significant abnormalities. Labs in the ED showed elevated BUN/Cr, elevated glucose, reduced oxygen saturation, which have since improved. Last hemoglobin A1c greater than 10% Follows with endocrinology Continue home Lantus and continue NovoLog sliding scale insulin Accu-Cheks, ADA diet Hold home Metformin Coma presence: without coma Glycemic state: with hypoglycemia Qualified Code(s): E11.649 - Type 2 diabetes mellitus with hypoglycemia without coma (6) Renal insufficiency: Plan: BUN/creatinine mildly elevated upon admission likely secondary to mild dehydration Holding home diclofenac, lisinopril Follow BMP (7) Cardiomyopathy: Plan: Nonischemic cardiomyopathy-previously had reduced EF but has now resolved after being on metoprolol lisinopril Metoprolol has now been discontinued and she has been discharged 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 the care of a 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 She remains on low-dose of lisinopril, but holding for now as above due to renal insufficiency and mildly low blood pressures on arrival Echocardiogram as above (8) Dyslipidemia: Plan: Continue rosuvastatin (9) Diabetic peripheral neuropathy associated with type 2 diabetes mellitus: Plan: Continue home gabapentin (10) Depression: Plan: Continue venlafaxine and BuSpar Plan: Disposition: med-surg with telemetry DVT prophylaxis: SCDs Diet: carb consistent Admission and Anticipated Discharge Date Admission Date: February 20, 2021 Supervising Attestation I saw the patient with the medical student and the resident physician and completed a clinical history and physical exam. 70-year-old female admitted 02/20/2021 after she fell while walking her dog. She unfortunately later on her face sustaining both a nasal bone fracture and a C6 vertebral body fracture along with contusions to the face. The patient denies losing consciousness but does not member tripping over anything specific to cause the fall. She is noted to have a history of peripheral neuropathy secondary to her diabetes along with some difficulty with balance, so this is theorized to have led to the fall. She was admitted to the hospital for pain control, orthopedic evaluation, and further observation. In addition to the above, she was noted to have a small elevation of her troponin upon admission. 109/65, 82, 18, 36.7, 93% on room air Data Sodium 137, potassium 4.9, BUN 30, creatinine 1.25. ALT 96, AP 235 Assessment and plan C6 cervical fracture Conservative treatment, no surgical intervention warranted [place] J collar, may remove when eating or bathing Follow-up x-rays in 1 week No lifting over 5 pounds PT/OT consultation recommends acute inpatient rehabilitation; patient somewhat resistant to this idea, though stressed that given her balance issues and current injuries, she does need some strengthening and instruction with regards to safe transfers/ambulation. Nondisplaced nasal fracture Otolaryngology follow-up as outpatient Augmentin for prophylaxis Pain control Additional as documentation above Subjective No acute events overnight. This morning the patient has been sitting up eating and drinking. She reports that her pain is improving but still significant. She reports bilateral shoulder discomfort related to the neck pain. Review of Systems Review of Systems: As per Subjective/HPI. Physical Exam Physical Exam: The patient was observed sitting up, eating solid breakfast foods, and wearing a [place] J cervical collar. Constitutional: well developed, well nourished and + obese Eyes: + periorbital abnormality (ecchymosis) ENMT: Nose: + external nose abnormality (Positive edema and ecchymosis) Respiratory: normal respiratory effort, lungs clear to auscultation Cardiovascular: Rate/Rhythm: regular rate and regular rhythm Heart Sounds: + murmur (grade 3 systolic) no peripheral edema Neurologic: PERRL, EOMI, accommodation nl, no face palsy, no dysarthria moves all extremities and awake; no focal motor deficits Psychiatric: A+Ox3, euthymic affect Results & Data ([facility]) Vital Signs (Past 12 Hours) Vital Signs Temp Pulse Resp BP BP Pulse Ox 02/22/21 08:00 36.9 C 87 18 114/72 93 02/22/21 03:05 36.9 C 79 18 137/76 92 02/21/21 22:44 36.9 C 81 18 113/75 90
--- NOTE | 2021-02-22 13:25 | Electrocardiogram Report ---
Test Reason : Blood Pressure : / mmHG Vent. Rate : 072 BPM Atrial Rate : 072 BPM P-R Int : 176 ms QRS Dur : 088 ms QT Int : 402 ms P-R-T Axes : 017 000 035 degrees QTc Int : 440 ms Normal sinus rhythm possible Inferior infarct (cited on or before 22-FEB-2021) Abnormal ECG When compared with ECG of 21-FEB-2021 06:34, No significant change was found Confirmed by Aubrey Jennings ([id number]) on 02/22/2021 1:25:35 PM Referred By: REFERRED SELF Confirmed By:Hua Jennings
[2021-02-22] MEDS ORDERED: MoRPHine SULFATE 2 MG/ML CARP IV STA (18:30)
[2021-02-22] MEDS: INSULIN GLARGINE SOLOSTAR 100 UNITS/ML 3 ML PEN SQ SCH (21:40)
[2021-02-22] MEDS ORDERED: MoRPHine SULFATE 2 MG/ML CARP ONE (23:54)
[2021-02-23] MEDS: ACETAMINOPHEN 325 MG TAB PO SCH ×4 (05:21→23:11)
[2021-02-23] MEDS: INSULIN ASPART 100 UNITS/ML 3 ML PEN SC SCH ×4 (08:52→20:39)
[2021-02-23] MEDS: AMOXICILLIN/CLAVULANATE 875 MG TAB PO SCH ×2 (08:54→17:52)
[2021-02-23] MEDS: ASPIRIN 81 MG ECTAB PO SCH (08:54)
[2021-02-23] MEDS: CHOLECALCIFEROL 1,000 UNITS 25 MCG TAB PO SCH (08:54)
[2021-02-23] MEDS: busPIRone 15 MG TAB PO SCH ×3 (08:55→20:38)
[2021-02-23] MEDS: CYANOCOBALAMIN 500 MCG TABLET (VITAMIN B-12) PO SCH (08:55)
[2021-02-23] MEDS: GABAPENTIN 300 MG CAP PO SCH ×3 (08:55→20:38)
[2021-02-23] MEDS: ROSUVASTATIN CALCIUM 20 MG TAB PO SCH (08:56)
[2021-02-23] MEDS: VENLAFAXINE HCL XR 150 MG CAPXR PO SCH (08:56)
[2021-02-23] MEDS: PANTOprazole 40 MG TAB PO SCH (08:56)
[2021-02-23 09:47] LABS: Albumin Level 3.1 gm/dl (3.4-5.0); BUN Creatinine Ratio 25.4 (10-20); Calcium 9.8 mg/dl (8.5-10.1); Creatinine Clr Calc Pharmacy 54.8 ml/min; Est GFR (African American) 69.1 ml/min; Est GFR (Non-African American) 59.6 ml/min; Potassium 4.6 mmol/L (3.5-5.1)
[2021-02-23 09:49] LABS: Albumin Globulin Ratio 0.8 (0.9-2); Bilirubin,Total 0.5 mg/dl (0.2-1); Total Protein 7.1 gm/dl (6.4-8.2)
[2021-02-23] MEDS: oxyCODONE HCL IR 5 MG TAB (IMMEDIATE RELEASE) PO PRN ×2 (12:28→18:05)
--- NOTE | 2021-02-23 18:15 | Hospitalist Progress Note ---
Date of Service February 23, 2021 Assessment & Plan (1) Fracture closed, nasal bone: Plan: This is a 70-year-old female with a past medical history of DM 2, previous NSTEMI, cardiomyopathy, dyslipidemia, and renal insufficiency presenting to the hospital for facial fractures secondary to fall. Secondary to fall With bilateral nasal bone fractures without significant displacement with fluid in left maxillary sinus No further epistaxis Cautioned her not to blow her nose * Follow-up with ENT, Dr. Connor, as an outpatient in 1 week * Continue prophylactic antibiotics with amoxicillin-clavulanic acid 875-125 mg p.o. twice daily 6 days Pain control with PO acetaminophen, PO oxycodone PRN, continue IV morphine PRN PT/OT recommends placement in rehab facility. Likely will have a bed in [facility] tomorrow. (2) C6 cervical fracture: Plan: With acute fracture to the C6 vertebral body secondary to fall Fortunately is a stable fracture given fusion to C5 with osteophytes and she has no focal neurological deficits at this time Seen by orthopedics, who does not recommend surgery Continue [place] J collar for 6-8 weeks No lifting more than 5 lbs Cervical spine x-ray next week Follow up with Dr. Kirkland in 1 week (3) Elevated troponin: Plan: Troponin detectable on admission at 0.03, with some inferior T wave inversions on EKG change from previous PR She denies chest pain Repeated serial troponin 0.33, 0.81, 0.58, trending downward Had normal cardiac catheterization in 2019 Repeat EKG showed no significant change from previous Transthoracic echocardiogram showed normal LV systolic function, mild LV hypertrophy, mild aortic valve sclerosis, and elevated RV systolic pressure at 40-50 mmHg Recommend outpatient sleep study (4) Acute blood loss anemia: Plan: Hemoglobin 11.7, improved from 10.7, normocytic Was normal previously Most likely due to acute blood loss from epistaxis Follow CBC (5) Type 2 diabetes mellitus, uncontrolled: Plan: Last hemoglobin A1c greater than 10% Follows with endocrinology Continue home Lantus and continue NovoLog sliding scale insulin Accu-Cheks, ADA diet Hold home Metformin Sugars have been much better controlled here than at her home regimen could be due to strict insulin control or dietary limitations. 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 She remains on low-dose of lisinopril, but holding for now as above due to renal insufficiency and mildly low blood pressures on arrival Echocardiogram as above (8) Dyslipidemia: Plan: Continue rosuvastatin (9) Diabetic peripheral neuropathy associated with type 2 diabetes mellitus: Plan: Continue home gabapentin (10) Depression: Plan: Continue venlafaxine and BuSpar Plan: Disposition: med-surg DVT prophylaxis: SCDs Diet: carb consistent Admission and Anticipated Discharge Date Admission Date: February 22, 2021 Supervising Physician Co-Signing Physician Notes I also saw the patient with the medical student and the resident physician and completed a clinical history and physical exam. 70-year-old female admitted 02/20/2021 after she fell while walking her dog. She unfortunately landed on her face sustaining both a nasal bone fracture and a C6 vertebral body fracture along with contusions to the face. She does live with her 88-year-old mother, and physical therapy here has recommended acute inpatient rehabilitation. 104/67, 95, 16, 36.7, 92% on room air Upon exam, she is ambulating in the room using a walker and 1 person assistance. She is now amenable to inpatient rehabilitation whereas yesterday she was somewhat resistant. Data Sodium 136, potassium 4.6, BUN 25, creatinine 0.97 AST 15, ALT 74, alkaline phosphatase 222 Troponin I 0.333, 0.582 Assessment and plan C6 cervical fracture Conservative treatment, no surgical intervention warranted [place] J collar, may remove when eating or bathing Follow-up x-rays in 1 week No lifting over 5 pounds PT/OT consultationappreciated, anticipate discharge to acute inpatient rehabilitation tomorrow Nondisplaced nasal fracture Otolaryngology follow-up as outpatient Augmentin 875 mg p.o. twice daily for prophylaxis Pain control Subjective Patient seen at bedside this morning. Allegedly her mother had discussed with her that her current injuries would be difficult to manage at home. Patient states that she is finally in agreement with going to a rehab facility. Acc ording to case management she will likely have a place to go to [facility] tomorrow. She states that her pain is for the most part controlled although she required an additional dose of morphine to her oxycodone last night. It was explained to her that we are using oxycodone because this would be the modality that she would likely be discharged on and we need to assure that her pain is controlled in this way. She states that she has no difficulty with eating or swallowing. Patient has no complaints at this time. Review of Systems Review of Systems: All systems reviewed & are unremarkable except as noted in HPI & below Physical Exam Constitutional: WD/WN, vitals as above Eyes: Periorbital ecchymosis bilaterally. ENMT: Mouth: + lip abnormality (Superior lip swelling) Neck: In a [place] J collar. Neck examination was deferred as she was in his collar and did not want to take it off. Respiratory: normal respiratory effort, lungs clear to auscultation Cardiovascular: RRR, no murmur, no edema Gastrointestinal (Abdomen): normal bowel sounds, soft, nontender, no hepatosplenomegaly Skin: no rashes, warm and dry Neurologic: moves all extremities Normal [id number] test. Psychiatric: A+Ox3, euthymic affect Results & Data Results & Data ([facility]) Vital Signs (Past 12 Hours) Vital Signs Temp Pulse Resp BP BP Pulse Ox 02/23/21 15:53 36.7 C 95 H 16 104/67 92 02/23/21 11:53 36.7 C 93 H 18 115/70 93 02/23/21 07:57 37.1 C 83 16 122/76 92 (1) Fracture closed, nasal bone Encounter type: initial encounter Qualified Code(s): S02.2XXA - Fracture of nasal bones, initial encounter for closed fracture (2) C6 cervical fracture Encounter type: initial encounter Fracture alignment: nondisplaced Fracture morphology: unspecified fracture morphology Fracture type: closed Qualified Code(s): S12.501A - Unspecified nondisplaced fracture of sixth cervical vertebra, initial encounter for closed fracture (3) Type 2 diabetes mellitus, uncontrolled Coma presence: without coma Glycemic state: with hypoglycemia Qualified Code(s): E11.649 - Type 2 diabetes mellitus with hypoglycemia without coma
[2021-02-23] MEDS: INSULIN GLARGINE SOLOSTAR 100 UNITS/ML 3 ML PEN SQ SCH (20:40)
[2021-02-23] MEDS: MoRPHine SULFATE 2 MG/ML CARP IV PRN (21:40)
[2021-02-24] MEDS: ACETAMINOPHEN 325 MG TAB PO SCH ×2 (05:34→11:37)
[2021-02-24] MEDS: AMOXICILLIN/CLAVULANATE 875 MG TAB PO SCH (09:20)
[2021-02-24] MEDS: PANTOprazole 40 MG TAB PO SCH (09:21)
[2021-02-24] MEDS: CHOLECALCIFEROL 1,000 UNITS 25 MCG TAB PO SCH (09:21)
[2021-02-24] MEDS: busPIRone 15 MG TAB PO SCH ×2 (09:21→13:27)
[2021-02-24] MEDS: ASPIRIN 81 MG ECTAB PO SCH (09:21)
[2021-02-24] MEDS: GABAPENTIN 300 MG CAP PO SCH ×2 (09:22→13:27)
[2021-02-24] MEDS: CYANOCOBALAMIN 500 MCG TABLET (VITAMIN B-12) PO SCH (09:22)
[2021-02-24] MEDS: ROSUVASTATIN CALCIUM 20 MG TAB PO SCH (09:23)
[2021-02-24] MEDS: VENLAFAXINE HCL XR 150 MG CAPXR PO SCH (09:23)
[2021-02-24] MEDS: INSULIN ASPART 100 UNITS/ML 3 ML PEN SC SCH ×2 (09:24→13:23)
--- NOTE | 2021-02-24 13:24 | Discharge Summary ---
Date of Service February 24, 2021 Principal Diagnosis Fall Discharge Exam Constitutional WD/WN, vitals as above ENMT Mouth: + lip abnormality (Superior lip swelling) Respiratory normal respiratory effort, lungs clear to auscultation Cardiovascular RRR, no murmur, no edema Gastrointestinal (Abdomen) normal bowel sounds, soft, nontender, no hepatosplenomegaly Skin no rashes, warm and dry Neurologic moves all extremities Psychiatric A+Ox3, euthymic affect Discharge Data Allergies Allergy/AdvReac Type Severity Reaction Status Date / Time No Known Allergies Allergy Verified 02/20/21 14:07 Consultations 02/20/21 15:28 ED Decision to Admit Stat 02/20/21 17:26 Consult Orthopedic Surgery Routine Ordered Studies 02/20/21 13:01 CT abd pelvis IV con only Stat CT cervical spine wo con Stat CT chest diagnostic w con Stat CT facial bones wo con Stat CT head/brain wo con Stat Diabetes Follow up Diabetes Follow-up Needed for HgbA1c >9% Hospital Course (1) Fracture closed, nasal bone: This is a 70-year-old female with a past medical history of DM 2, previous NSTEMI, cardiomyopathy, dyslipidemia, and renal insufficiency presenting to the hospital for facial fractures secondary to fall. Secondary to fall With bilateral nasal bone fractures without significant displacement with fluid in left maxillary sinus No further epistaxis Cautioned her not to blow her nose * Follow-up with ENT, Dr. Connor, as an outpatient in 1 week * Continue prophylactic antibiotics with amoxicillin-clavulanic acid 875-125 mg p.o. twice daily 6 days Pain control with PO acetaminophen, PO oxycodone PRN, continue IV morphine PRN PT/OT recommends placement in rehab facility. Discharged to [facility] Sent with 3 days worth of Augmentin for prophylaxis. (2) C6 cervical fracture: With acute fracture to the C6 vertebral body secondary to fall Fortunately is a stable fracture given fusion to C5 with osteophytes and she has no focal neurological deficits at this time Seen by orthopedics, who does not recommend surgery Continue Saratoga J collar for 6-8 weeks No lifting more than 5 lbs Cervical spine x-ray next week Follow up with Dr. Kirkland in 1 week (3) Elevated troponin: Troponin detectable on admission at 0.03, with some inferior T wave inversions on EKG change from previous MT She denies chest pain Repeated serial troponin 0.33, 0.81, 0.58, trending downward Had normal cardiac catheterization in 2019 Repeat EKG showed no significant change from previous Transthoracic echocardiogram showed normal LV systolic function, mild LV hypertrophy, mild aortic valve sclerosis, and elevated RV systolic pressure at 40-50 mmHg Recommend outpatient sleep study (4) Acute blood loss anemia: Hemoglobin 11.7, improved from 10.7, normocytic Was normal previously Most likely due to acute blood loss from epistaxis Follow CBC (5) Type 2 diabetes mellitus, uncontrolled: Last hemoglobin A1c greater than 10% Follows with endocrinology Continue home Lantus and continue NovoLog sliding scale insulin Accu-Cheks, ADA diet Hold home Metformin Sugars have been much better controlled here than at her home regimen could be due to strict insulin control or dietary limitations. (6) Renal insufficiency: BUN/creatinine mildly elevated upon admission likely secondary to mild dehydration Holding home diclofenac, lisinopril Follow BMP (7) Cardiomyopathy: Nonischemic cardiomyopathy-previously had reduced EF but has now resolved after being on metoprolol lisinopril Metoprolol has now been discontinued and she has been discharged from the care of a product steward She remains on low-dose of lisinopril, but holding for now as above due to renal insufficiency and mildly low blood pressures on arrival Echocardiogram as above (8) Dyslipidemia: Continue rosuvastatin (9) Diabetic peripheral neuropathy associated with type 2 diabetes mellitus: Continue home gabapentin (10) Depression: Continue venlafaxine and BuSpar Disposition: med-surg DVT prophylaxis: SCDs Diet: carb consistent Total Time Total Time Spent Total Time Spent (In Minutes): 30 Discharge Plan Discharge Items Patient Disposition: Transfer Inpatient Rehab Fac Reason For Visit: FALL, FACIAL INJURY Discharge Diagnosis: Fall Activity: Per Instructions section Non-emergency contact: Primary Care Provider Call non-emergency contact if: you have any medication questions and your pain is not controlled Follow-up/Referrals: Salas Kirkland DO [Surgeon] - Alma Connor MD [Physician] - Gabriel Enriquez DO [Primary Care Provider] - Diet: Carb Consistent or DM2 Addtl Attending Provider Instructions: He was seen in the hospital for facial fractures as well as a C6 cervical fracture secondary to a fall. While you were here you received imaging which confirmed these diagnoses. You were seen by orthopedics in the hospital who deemed that your fracture of your cervical spine was stable and only required conservative management which included wearing a Sar[place]oga J cervical collar. You have follow-up with orthopedics in 1 week with x-rays per their recommendation. ENT had reviewed your facial CT and deemed that your fractures were stable and they would follow up with you in 1 week in their clinic. Per ENT recommendations, you will be sent home with an antibiotic that you have been taking for bacterial infection prophylaxis. You will take this for 3 additional days with your first dose being today, 02/24/2021, at 9 PM. Your pain has been controlled for the past 24 hours we deem it is appropriate for you to be discharged to a rehab facility per physical therapy and Occupational Therapy's recommendations. This is to help regain your strength and prevent future falls. You have been accepted at [facility] where you receive physical therapy until you are well enough to return home. It has been a pleasure to be a part of your care and we wish you the best in your recovery. Pending Studies at Discharge: No Stand-Alone Forms: My [facility] Skilled Items Patient informed of condition?: Yes DNR: No Discharge Level of Care: Acute rehab Communicable Disease: No Discharge Prognosis: Stable Lines: None Urinary Catheter: No Medications and DC Order Prescriptions: New amoxicillin-pot clavulanate [Augmentin] 875-125 mg Tablet 1 tab PO BIDM 3 Days Qty: 6 RF: 0 Continued aspirin 81 mg tablet,delayed release (DR/EC) 81 mg PO DAILY Qty: 90 RF: 3 lisinopril 2.5 mg tablet 2.5 mg PO QAM Qty: 90 RF: 3 ondansetron 8 mg tablet,disintegrating 8 mg PO Q8H PRN (Reason: nausea and vomiting) Qty: 42 RF: 1 gabapentin 300 mg capsule 300 mg PO TID Qty: 90 RF: 2 amoxicillin 500 mg capsule See Rx Instructions PO .COMPLEX Qty: 16 RF: 0 (DME) OneTouch Ultra Blue Test Strip Strip See Rx Instructions .ROUTE .MEDSUPPLY Qty: 300 RF: 3 metformin 1,000 mg tablet 1,000 mg PO BID Qty: 180 RF: 3 rosuvastatin 20 mg tablet 20 mg PO QAM Qty: 90 RF: 3 diclofenac sodium 75 mg tablet,delayed release (DR/EC) 75 mg PO BID Qty: 60 RF: 5 esomeprazole magnesium [Nexium] 40 mg capsule,delayed release(DR/EC) 40 mg PO QAM Qty: 90 RF: 1 buspirone 15 mg tablet 15 mg PO TID Qty: 90 RF: 0 (DME) pen needle, diabetic [BD Ultra-Fine Marleny Pen Needle] 32 gauge x 5/32" needle See Dose Instructions .ROUTE .MEDSUPPLY Qty: 400 RF: 3 insulin lispro [Humalog KwikPen Insulin] 100 unit/mL insulin pen 0 unit subcut TID RF: 0 Lantus Solostar U-100 Insulin 100 unit/mL (3 mL) insulin pen 44 unit SQ QPM RF: 0 cyclobenzaprine 10 mg tablet 10 mg PO TID PRN (Reason: muscle spasm) RF: 0 cyanocobalamin (vitamin B-12) 1,000 mcg tablet 1,000 mcg PO DAILY RF: 0 cholecalciferol (vitamin D3) 2,000 unit capsule 2,000 units PO DAILY RF: 0 (DME) blood-glucose meter [OneTouch UltraMini] kit See Dose Instructions .ROUTE .MEDSUPPLY Qty: 1 RF: 0 albuterol sulfate [ProAir HFA] 90 mcg/actuation HFA aerosol inhaler 2 puff INH Q4H PRN (Reason: Shortness Of Breath Or Wheezing) Qty: 8.5 RF: 3 venlafaxine 150 mg capsule,extended release 24hr 150 mg PO DAILY RF: 0 Discharge Orders: Discharge Order (Routine); Ordered 02/24/21 Ordered By: Manuel Riggs Admission Data Admit Date/Time: 02/22/21 15:30 Attending Provider: Jim Hatfield Admit Provider: Lu Herrera Primary Care Provider: Gabriel Enriquez Other Providers: [facility] ; [facility],Home Healthcare ; [facility],Home Health ; Lu Herrera ; Salas Kirkland Other Interventions: Discharge Summary Assessment (RN) Last Done: 02/24/21 13:40 Supervising Physician Co-Signing Physician Notes I also saw the patient with the resident physician and completed a clinical history and physical exam. 70-year-old female admitted 02/20/2021 after she fell while walking her dog. She unfortunately landed on her face sustaining both a nasal bone fracture and a C6 vertebral body fracture along with contusions to the face. She does live wit h her 88-year-old mother, and physical therapy here has recommended acute inpatient rehabilitation. She is medical stable and ready for discharge to acute care facility for rehabilitation with eventual discharge to home. Assessment and plan C6 cervical fracture Conservative treatment, no surgical intervention warranted Saratoga J collar, may remove when eating or bathing Follow-up x-rays in 1 week No lifting over 5 pounds Nondisplaced nasal fracture Otolaryngology follow-up as outpatient Augmentin 875 mg p.o. twice daily for prophylaxis
--- NOTE | 2021-03-24 09:48 | Coding Query ---
To promote full compliance with coding requirements relating to patient care, provider participation is requested in all cases of health information coder uncertainty. Please assist us with the question(s) below: Coding Question(s): The diagnosis below was documented in the H&P, then subsequently fell off all further documentation. Please indicate if it is still a possible diagnosis or ruled out. Physician's Response(s): ACUTE RESPIRATORY FAILURE WITH HYPOXIA (documented on H&P) ( ) Diagnosed and POA ( ) Diagnosed and not POA ( X ) Ruled out ( ) Other (please specify) MTDD
== END 2021-02-24 16:11 | DRG 552 ==
LOC: EDBD → ED 13:17 → MERGE 13:17 → EDINP 13:17 → SUATTDRO 17:34 → 2N 22:39 → 3W 02-23 12:03
DX: K21.9 Gastro-esophageal reflux disease without esophagitis; Z82.49 Family history of ischemic heart disease and other diseases of the circulatory system; N28.9 Disorder of kidney and ureter, unspecified; R29.6 Repeated falls; E11.42 Type 2 diabetes mellitus with diabetic polyneuropathy; Z79.899 Other long term (current) drug therapy; F41.9 Anxiety disorder, unspecified; F32.9 Major depressive disorder, single episode, unspecified; Y99.8 Other external cause status; Z79.1 Long term (current) use of non-steroidal anti-inflammatories (NSAID); S02.2XXA Fracture of nasal bones, initial encounter for closed fracture; Z79.84 Long term (current) use of oral hypoglycemic drugs; E86.0 Dehydration; Z79.4 Long term (current) use of insulin; S12.501A Unspecified nondisplaced fracture of sixth cervical vertebra, initial encounter for closed fracture; W18.39XA Other fall on same level, initial encounter; E78.5 Hyperlipidemia, unspecified; Z79.82 Long term (current) use of aspirin; E55.9 Vitamin D deficiency, unspecified; J45.909 Unspecified asthma, uncomplicated; Z98.1 Arthrodesis status; E11.43 Type 2 diabetes mellitus with diabetic autonomic (poly)neuropathy; M19.90 Unspecified osteoarthritis, unspecified site; R04.0 Epistaxis; Y93.K1 Activity, walking an animal; E11.65 Type 2 diabetes mellitus with hyperglycemia; I25.2 Old myocardial infarction; D62 Acute posthemorrhagic anemia; R79.89 Other specified abnormal findings of blood chemistry; I10 Essential (primary) hypertension; Z91.81 History of falling

== ENCOUNTER 2022-12-27 17:08 | Inpatient (IN) ==
--- NOTE | 2022-12-27 17:14 | Emergency Department Note ---
Impression & Plan Fall, Back pain, Anterolisthesis of lumbar spine ED Provider Note NAME: PAUL PERSON AGE: 72 SEX: F : 1950 ARRIVES VIA: Ambulance INFORMANT: Patient, ED PROVIDER(S): Shay Trejo MD CHIEF COMPLAINT: Fall, back pain MEDICAL DECISION MAKING: Patient presents due to concern for fall and associated back pain. Do not believe the patient requires CT of the head and cervical spine. The patient denies any head strike or LOC. The patient may have had a very small abrasion to the left forehead but this only appears to be a scratch and not even really an abrasion. It is pinpoint in nature. There is no pain or surrounding ecchymosis and the patient does not take any blood thinners. Patient did have a CT of the lumbar spine completed and the patient did have an IV established blood work was obtained. Patient was ordered IV Valium given lidocaine patch as well as p.o. Tylenol. Blood work shows a normal white count mild anemia hemoglobin 11 with normal platelet count. Sodium slightly at 134 with the patient's BSG is slightly elevated to 85. No normal bicarb and anion gap. Patient did receive several rounds of IV pain narcotic medication. The patient states that she did not feel well enough to go home. CT of the lumbar spine does not show any obvious fractures but does show anterior listhesis which I did convey to the patient. Blood work is grossly unremarkable. I did speak with the on-call hospital service Dr. Rain the patient was admitted to the medicine service Discussion w/ other healthcare providers: Dr. Rain inpatient medicine service Prior /Outside records reviewed: I did review a primary care visit from December [address] Quach. Patient does have a history of type 2 diabetes hypertension hyperlipidemia. She had presented at that time for routine follow-up Differential diagnosis: Musculoskeletal, disc herniation, fracture, sprain, strain, cord compression, discitis, sciatica, cauda equina, infection, renal colic, as well as other pathologies were considered. Diagnostics, as interpreted by me: ECG: None Cardiac monitoring: An order was placed for continuous cardiac monitoring. The monitor shows a rate of 75 with sinus rhythm. Patient was placed on pulse oximetry Medical decision rules: None Imaging studies: I informally interpreted the patient's CT lumbar spine which does not show obvious fracture with formal report to follow. HPI: Patient presents from home after suffering a fall. The patient reportedly fell to her left side while she was in the driveway and had misstepped. Patient denies any head strike or LOC but was told that she might have a small abrasion to her left head. The patient does not take a blood thinner medications but does take baby aspirin. Patient denies any head neck chest abdominal or extremity pain. The patient states that she fell to her left side. The patient was unable to get up secondary to pain and the fact that she has had prior knee replacements. Patient states that the airport shuttle driver was also a pill. Patient does not take anything for pain prior to arrival. The patient does feel as though his back is spasming and describes most of her pain in the lower back. Patient denies any numbness tingling or focal weakness. PAST MEDICAL HISTORY: See Below PAST SURGICAL HISTORY: See Below SOCIAL HISTORY: See Below HOME MEDICATIONS: See Below ALLERGIES: See Below VITALS: See Below PHYSICAL EXAMINATION: GENERAL: NAD, non-toxic. EYE EXAM: Normal conjunctiva. PERRL, no anisocoria and EOM's grossly intact w/o pain. OROPHARYNX: Moist mucus membranes, grossly normal dentition. NECK: Supple, no nuchal rigidity, no adenopathy, non-tender. No signs of meningismus. FROM of the neck with good chin to chest and neck extension. No stridor. LUNGS: Clear to auscultation. Normal chest wall mechanics. HEART: NSR, no MRG. ABDOMEN: Abdomen soft, non-tender, no masses, no rebound or guarding. BACK: Reproducible midline lumbar TTP. SKIN: No rashes and no bruising. UPPER EXTREMITIES: Upper extremities are grossly normal. LOWER EXTREMITIES: Grossly normal, no edema. No sensory deficits NEURO EXAM: A&O x3, cranial nerves II-XII grossly intact, normal speech, moves all 4 extremities. Past Med/Surg History Medical History Acute anterior epistaxis Anxiety C6 cervical fracture Cardiomyopathy Chronic kidney disease Chronic osteoarthritis Depression Diabetic peripheral neuropathy associated with type 2 diabetes mellitus Dysesthesia Dyslipidemia Elevated troponin Fall Frequent falls Gastroparesis GERD (gastroesophageal reflux disease) Hiatal hernia Small Hypertension Lumbar radiculopathy Mixed conductive and sensorineural hearing loss of both ears NSTEMI (non-ST elevated myocardial infarction) Pancreatic cyst [facility] Perianal abscess Urinary incontinence Venous insufficiency (chronic) (peripheral) Vitamin D deficiency Vitiligo Surgical History History of total knee replacement RT TKA APPROX 15 YEARS AGO L TKA 01/23/2018 Hx of cardiac cath Mar 2018. Normal coronary arteries. Family History Mother Hypertension Cancer Melanoma Father Breast cancer Cancer Melanoma Family/Other Breast cancer Unknown Osteoarthritis Denies family history of Ovarian cancer Prostate cancer Heart disease Colorectal cancer Lung disease Stroke Asthma Social History Smoking Status: Never smoker Second Hand Exposure: No; Do You Dip or Chew Tobacco: No; Hx Alcohol Use: No Hx Substance Use: No Preferred Language: Hungarian Communication Ability: Effective Communication Ability Comment: D/t facial edema from fall pt cannot see well enough to sign documents now Visual Impairment: Diminished Hearing Ability: Normal Manager Of Case Required: No Beliefs That Will Affect Care: None marital status: Current Living Situation: Parent Current Living Situation Comment: Home with mother current occupational status: disabled Feels Safe at Home: No Is there a partner from a previous relationship who is making you feel unsafe now?: No Childhood Exposure to Second-Hand Smoke: No Diet: regular caffeine: Yes Dental Care, Regularly: Yes Physical Activity Frequency: 3-4 Times per Week Physical Activity Frequency Comment: walk Seatbelt Use: always Sunscreen Use: No (not in the sun) Do you think of yourself as: straight/heterosexual Assistive Devices: Walker Allergies Allergies Allergy/AdvReac Type Severity Reaction Status Date / Time No Known Drug Allergies Allergy Unknown Verified 12/19/22 14:16 Home Meds Home Medications Medication Instructions Recorded Confirmed blood-glucose meter (FastModel SportsTouch #1 ea 10/29/18 12/19/22 UltraMini kit) cholecalciferol (vitamin D3) 50 2,000 units PO DAILY 11/08/18 12/27/22 mcg (2,000 unit) capsule cyanocobalamin (vitamin B-12) 1,000 mcg PO DAILY 11/08/18 12/27/22 1,000 mcg tablet cyclobenzaprine 10 mg tablet 10 mg PO TID PRN muscle spasm 12/12/19 12/27/22 esomeprazole magnesium 40 mg 40 mg PO DAILY 10/31/21 12/27/22 capsule,delayed release (Nexium) venlafaxine 150 mg 150 mg PO BID 01/18/22 12/27/22 capsule,extended release 24 hr buspirone 15 mg tablet 30 mg PO BID 03/28/22 12/27/22 Previous Rx's Medication Instructions Recorded aspirin 81 mg tablet,delayed 81 mg PO DAILY #90 tabs 06/23/19 release albuterol sulfate 90 mcg/actuation 2 puff inhalation Q4H PRN 06/24/20 aerosol inhaler (ProAir HFA) Shortness Of Breath Or Wheezing #8.5 grams melatonin 3 mg tablet 3 mg PO HS PRN sleep #30 tabs 04/06/21 ondansetron 8 mg disintegrating 8 mg PO Q8H PRN nausea and 08/25/21 tablet vomiting #90 tabs pen needle, diabetic 32 gauge x #400 ea 05/23/22" (BD Ultra-Fine Marleny Pen Needle) amoxicillin 500 mg capsule See Rx Instructions PO .COMPLEX 08/25/22 #16 caps insulin lispro 100 unit/mL See Rx Instructions subcut TID #45 08/30/22 subcutaneous pen (Humalog KwikPen mL (U-100) Insulin) lisinopril 2.5 mg tablet 2.5 mg PO QAM #90 tabs 10/24/22 metformin 1,000 mg tablet 1,000 mg PO BID #180 tabs 10/24/22 rosuvastatin 20 mg tablet 20 mg PO QAM #90 tabs 10/24/22 gabapentin 300 mg capsule 300 mg PO TID #270 caps 11/30/22 blood sugar diagnostic (OneTouch #600 ea 12/05/22 Ultra Test strips) baclofen 10 mg tablet 10 mg PO TID #0 tabs 12/29/22 insulin NPH isoph U-100 human 100 15 unit (0.15 mL) SC BIDM #0 mL 12/29/22 unit/mL subcutaneous suspension (Novolin N NPH U-100 Insulin isophane) lidocaine 5 % topical patch 1 patch transdermal QAM #0 ea 12/29/22 metformin 500 mg tablet 1,000 mg PO BIDM #0 tabs 12/29/22 pantoprazole 40 mg tablet,delayed 40 mg PO DAILY #0 tabs 12/29/22 release Results & Data (ED) Vital Signs Vital Signs - 24 hr 12/27/22 17:16 12/27/22 17:16 Temperature 37 C Temperature Source Oral Pulse Rate 53 L Pulse Rate [Finger] 53 L Respiratory Rate 18 18 Blood Pressure 122/77 Blood Pressure [Right Arm] 122/77 Blood Pressure Mean 92 Blood Pressure Mean [Right Arm] 92 Pulse Oximetry 99 99 Oxygen Delivery Method Room Air Sepsis Recent Fever Within 48 Hours No Sepsis New/Unexplained Change in Mental Status No Sepsis Action Taken by Nursing No Action Required Home Medications Current Medication List: was personally reviewed by me Laboratory Data Attestation: I reviewed the patient's lab results. 12/27/22 17:27 12/27/22 17:27 Lab Results 12/27/22 12/27/22 12/27/22 Range/Units 17:27 17:27 20:13 WBC 7.23 (4.8-10.8) K/ul RBC 4.01 L (4.20-5.40) M/uL Hgb 11.8 L (12.0-16.0) g/dl Hct 35.3 L (37.0-47.0) % MCV 88.0 (80.0-100.0) fL MCH 29.4 (25.0-34.0) pg MCHC 33.4 (32.0-36.0) g/dL RDW Std Deviation 39.7 (36.4-46.3) fL RDW Coeff of Barrett 12.4 (11.5-14.5) % Plt Count 230 (130-400) K/uL MPV 10.0 (9.4-12.4) fL Immature Gran % (Auto) 0.3 % Neut % (Auto) 59.2 % Lymph % (Auto) 28.5 % [place] % (Auto) 7.9 % Eos % (Auto) 3.0 % Baso % (Auto) 1.1 % Neut # (Auto) 4.28 (1.40-6.50) K/uL Lymph # (Auto) 2.06 (1.20-3.40) K/uL [place] # (Auto) 0.57 (0.11-0.59) K/uL Eos # (Auto) 0.22 (0.00-0.50) K/uL Baso # (Auto) 0.08 (0.00-0.20) K/uL Immature Gran # (Auto) 0.02 (0.01-0.20) K/uL Sodium 134 L (136-145) mmol/L Potassium 4.3 (3.5-5.1) mmol/L Chloride 101 (98-107) mmol/L Carbon Dioxide 26 (21-32) mmol/L Anion Gap 7 (3-11) BUN 18 (6-23) mg/dl Creatinine 1.03 (0.6-1.2) mg/dl Est Cr Clr Drug Dosing 54.0 ml/min Est GFR ( Amer) 63.3 ml/min Est GFR (Non-Af Amer) 54.6 ml/min BUN/Creatinine Ratio 17.5 (10-20) Glucose 285 H (70-99(Fasting)) mg/dl POC Glucose 302 H* (70-99) mg/dl Calcium 9.2 (8.6-10.3) mg/dl 12/27/22 12/28/22 12/28/22 Range/Units 23:36 00:32 07:07 WBC (4.8-10.8) K/ul RBC (4.20-5.40) M/uL Hgb (12.0-16.0) g/dl Hct (37.0-47.0) % MCV (80.0-100.0) fL MCH (25.0-34.0) pg MCHC (32.0-36.0) g/dL RDW Std Deviation (36.4-46.3) fL RDW Coeff of Barrett (11.5-14.5) % Plt Count (130-400) K/uL MPV (9.4-12.4) fL Immature Gran % (Auto) % Neut % (Auto) % Lymph % (Auto) % [place] % (Auto) % Eos % (Auto) % Baso % (Auto) % Neut # (Auto) (1.40-6.50) K/uL Lymph # (Auto) (1.20-3.40) K/uL [place] # (Auto) (0.11-0.59) K/uL Eos # (Auto) (0.00-0.50) K/uL Baso # (Auto) (0.00-0.20) K/uL Immature Gran # (Auto) (0.01-0.20) K/uL Sodium 134 L (136-145) mmol/L Potassium 4.7 (3.5-5.1) mmol/L Chloride 102 (98-107) mmol/L Carbon Dioxide 27 (21-32) mmol/L Anion Gap 5 (3-11) BUN 23 (6-23) mg/dl Creatinine 1.03 (0.6-1.2) mg/dl Est Cr Clr Drug Dosing 54.0 ml/min Est GFR ( Amer) 63.3 ml/min Est GFR (Non-Af Amer) 54.6 ml/min BUN/Creatinine Ratio 22.3 H (10-20) Glucose 349 H* (70-99(Fasting)) mg/dl POC Glucose 334 H* 363 H* (70-99) mg/dl Calcium 9.0 (8.6-10.3) mg/dl 12/28/22 12/28/22 12/28/22 Range/Units 07:07 08:01 11:39 WBC 6.58 (4.8-10.8) K/ul RBC 3.66 L (4.20-5.40) M/uL Hgb 10.8 L (12.0-16.0) g/dl Hct 32.5 L (37.0-47.0) % MCV 88.8 (80.0-100.0) fL MCH 29.5 (25.0-34.0) pg MCHC 33.2 (32.0-36.0) g/dL RDW Std Deviation 40.8 (36.4-46.3) fL RDW Coeff of Barrett 12.5 (11.5-14.5) % Plt Count 187 (130-400) K/uL MPV 9.9 (9.4-12.4) fL Immature Gran % (Auto) % Neut % (Auto) % Lymph % (Auto) % [place] % (Auto) % Eos % (Auto) % Baso % (Auto) % Neut # (Auto) (1.40-6.50) K/uL Lymph # (Auto) (1.20-3.40) K/uL [place] # (Auto) (0.11-0.59) K/uL Eos # (Auto) (0.00-0.50) K/uL Baso # (Auto) (0.00-0.20) K/uL Immature Gran # (Auto) (0.01-0.20) K/uL Sodium (136-145) mmol/L Potassium (3.5-5.1) mmol/L Chloride (98-107) mmol/L Carbon Dioxide (21-32) mmol/L Anion Gap (3-11) BUN (6-23) mg/dl Creatinine (0.6-1.2) mg/dl Est Cr Clr Drug Dosing ml/min Est GFR ( Amer) ml/min Est GFR (Non-Af Amer) ml/min BUN/Creatinine Ratio (10-20) Glucose (70-99(Fasting)) mg/dl POC Glucose 328 H* 280 H (70-99) mg/dl Calcium (8.6-10.3) mg/dl Administered Medications Discontinued Medications Acetaminophen (Acetaminophen 500 Mg Tab) 1,000 mg PO NOW STA Stop: 12/27/22 17:28 Last Admin: 12/27/22 17:48 Dose: 1,000 mg Documented By: CORINNA Acetaminophen (Acetaminophen 500 Mg Tab) 1,000 mg PO Q8 PETROS Stop: 01/27/23 05:59 Last Admin: 12/29/22 14:24 Dose: 1,000 mg Documented By: Admin: 12/29/22 06:25 Dose: 1,000 mg Documented By: Admin: 12/28/22 22:42 Dose: Not Given Documented By: Admin: 12/28/22 14:28 Dose: 1,000 mg Documented By: Admin: 12/28/22 05:53 Dose: Not Given Documented By: YUSRA Aspirin (Aspirin 81 Mg Ectab) 81 mg PO DAILY PETROS Stop: 01/27/23 08:59 Last Admin: 12/29/22 08:43 Dose: 81 mg Documented By: Admin: 12/28/22 08:16 Dose: 81 mg Documented By: CASTILLO Baclofen (Baclofen 10 Mg Tab) 10 mg PO TID PETROS Stop: 01/27/23 20:59 Last Admin: 12/29/22 14:21 Dose: 10 mg Documented By: Admin: 12/29/22 08:42 Dose: 10 mg Documented By: Admin: 12/28/22 22:41 Dose: Not Given Documented By: YUSRA Buspirone HCl (Buspirone 15 Mg Tab) 30 mg PO NOW STA Stop: 12/27/22 22:31 Last Admin: 12/27/22 23:18 Dose: 30 mg Documented By: TAMIKO Buspirone HCl (Buspirone 15 Mg Tab) 30 mg PO BID PETROS Stop: 01/27/23 08:59 Last Admin: 12/29/22 08:44 Dose: 30 mg Documented By: Admin: 12/28/22 22:41 Dose: Not Given Documented By: Admin: 12/28/22 08:17 Dose: 30 mg Documented By: CASTILLO Cyclobenzaprine HCl (Cyclobenzaprine Hcl 10 Mg Tab) 10 mg PO TID PRN PRN Reason: muscle spasm Stop: 01/27/23 08:59 Last Admin: 12/28/22 14:49 Dose: 10 mg Documented By: Admin: 12/28/22 08:28 Dose: 10 mg Documented By: CASTILLO Cyclobenzaprine HCl (Cyclobenzaprine Hcl 10 Mg Tab) 10 mg PO NOW STA Stop: 12/28/22 00:36 Last Admin: 12/28/22 01:02 Dose: 10 mg Documented By: YUSRA Diazepam (Diazepam Inj 5 Mg/Ml 2 Ml Carp) 3 mg IV NOW STA Stop: 12/27/22 17:28 Last Admin: 12/27/22 17:49 Dose: 3 mg Documented By: CORINNA Fentanyl Citrate (Fentanyl Citrate Pf 100 Mcg/2 Ml Vial) 50 mcg IV NOW STA Stop: 12/27/22 20:01 Last Admin: 12/27/22 20:14 Dose: 50 mcg Documented By: CORINNA Gabapentin (Gabapentin 300 Mg Cap) 300 mg PO NOW STA Stop: 12/27/22 22:31 Last Admin: 12/27/22 23:19 Dose: 300 mg Documented By: TAMIKO Gabapentin (Gabapentin 300 Mg Cap) 300 mg PO TID PETROS Stop: 01/27/23 08:59 Last Admin: 12/29/22 14:22 Dose: 300 mg Documented By: Admin: 12/29/22 08:43 Dose: 300 mg Documented By: Admin: 12/28/22 22:42 Dose: Not Given Documented By: Admin: 12/28/22 14:27 Dose: 300 mg Documented By: Admin: 12/28/22 08:17 Dose: 300 mg Documented By: CASTILLO Insulin Aspart (Insulin Aspart Per Unit Charge) 12 units SC NOW STA Stop: 12/27/22 22:23 Last Admin: 12/27/22 23:44 Dose: 12 units Documented By: TAMIKO Co-signed By: JAMAR Insulin Aspart (Insulin Aspart Per Unit Charge) 0 units SC ACHS PETROS Stop: 01/27/23 07:29 Last Admin: 12/29/22 12:27 Dose: 7 units Documented By: CASTILLO Co-signed By: NARCISA Admin: 12/29/22 08:49 Dose: 4 units Documented By: CASTILLO Co-signed By: JACEY Admin: 12/28/22 22:46 Dose: 3 units Documented By: YUSRA Co-signed By: NORBERT Admin: 12/28/22 17:31 Dose: 8 units Documented By: CASTILLO Co-signed By: GAYATRI Admin: 12/28/22 12:48 Dose: 13 units Documented By: CASTILLO Co-signed By: JOSEPH Admin: 12/28/22 08:29 Dose: 15 units Documented By: CASTILLO Co-signed By: JERI Insulin Glargine (Lantus Per Unit Charge) 20 units SQ NOW STA Stop: 12/27/22 22:07 Last Admin: 12/27/22 23:43 Dose: 20 units Documented By: TAMIKO Co-signed By: JAMAR Insulin Glargine (Lantus Per Unit Charge) 20 units SQ BID PETROS Stop: 01/27/23 08:59 Last Admin: 12/28/22 08:29 Dose: 20 units Documented By: CASTILLO Co-signed By: JERI Insulin Human NPH (Insulin Human Nph) 20 units SC BIDM PETROS Stop: 01/27/23 16:59 Last Admin: 12/29/22 08:50 Dose: 20 units Documented By: CASTILLO Co-signed By: JACEY Admin: 12/28/22 17:42 Dose: 20 units Documented By: GAYATRI Co-signed By: CASTILLO Ketorolac Tromethamine (Ketorolac Tromethamine 15 Mg/Ml Vial) 15 mg IV Q6H PRN PRN Reason: Pain Stop: 01/02/23 00:34 Last Admin: 12/29/22 06:19 Dose: 15 mg Documented By: Admin: 12/28/22 01:22 Dose: 15 mg Documented By: YUSRA Lidocaine (Lidocaine 5% 1 Patch) 1 patch TD NOW [facility] Stop: 12/27/22 17:28 Last Admin: 12/27/22 17:49 Dose: 1 patch Documented By: CORINNA Lidocaine (Lidocaine 5% 1 Patch) 1 patch TD [facility] Stop: 01/28/23 08:59 Last Admin: 12/29/22 08:45 Dose: 1 patch Documented By: CASTILLO Lisinopril (Lisinopril 2.5 Mg Tab) [facility] [place] Stop: 01/27/23 08:59 Last Admin: 12/29/22 08:44 Dose: 2.5 mg Documented By: Admin: 12/28/22 08:16 Dose: 2.5 mg Documented By: CASTILLO Metformin HCl (Metformin Hcl 500 Mg Tab) 1,000 mg PO BIDM [facility] Stop: 01/27/23 07:59 Last Admin: 12/29/22 08:43 Dose: 1,000 mg Documented By: Admin: 12/28/22 17:20 Dose: 1,000 mg Documented By: [facility] Admin: 12/28/22 08:34 Dose: 1,000 mg Documented By: CASTILLO Miscellaneous (Remove Lidoderm Patch) 1 each N/A DAILY@2100 [facility] Stop: 01/26/23 20:59 Last Admin: 12/27/22 23:17 Dose: Not Given Documented By: TAMIKO Kateaneous (Carbohydrates For Hypoglycemia ) 15 - 30 gm PO UD PRN PRN Reason: Hypoglycemia Protocol Stop: 01/27/23 00:34 Last Admin: 12/29/22 14:29 Dose: 30 gm Documented By: CASTILLO Tenoriocellaneous (Remove Lidoderm Patch) 1 each N/A TODAY@0600 [facility] Stop: 12/28/22 06:01 Last Admin: 12/28/22 05:53 Dose: Not Given Documented By: YUSRA Morphine Sulfate (Morphine Sulfate 10 Mg/Ml Carp/Vial) 6 mg IV NOW STA Stop: 12/27/22 18:57 Last Admin: 12/27/22 19:02 Dose: 6 mg Documented By: CORINNA Morphine Sulfate (Morphine Sulfate 4 Mg/Ml 1 Ml Carp\\Vial) 4 mg IV NOW STA Stop: 12/27/22 23:14 Last Admin: 12/27/22 23:25 Dose: 4 mg Documented By: TAMIKO Morphine Sulfate (Morphine Sulfate 4 Mg/Ml 1 Ml Carp\\Vial) 4 mg IV Q3H PRN PRN Reason: Pain (6,7,8,9,10) Stop: 01/11/23 00:34 Last Admin: 12/29/22 10:45 Dose: 4 mg Documented By: Admin: 12/29/22 06:18 Dose: 4 mg Documented By: YUSRA Oxycodone HCl (Oxycodone Ir Home Pack) 1 each PO UD ONE Stop: 12/27/22 21:20 Last Admin: 12/27/22 23:06 Dose: Not Given Documented By: CORINNA Pantoprazole Sodium (Pantoprazole 40 Mg Tab) 40 mg PO DAILY [facility] Stop: 01/27/23 08:59 Last Admin: 12/29/22 08:43 Dose: 40 mg Documented By: Admin: 12/28/22 08:16 Dose: 40 mg Documented By: CASTILLO Rosuvastatin Calcium (Rosuvastatin Calcium 20 Mg Tab) 20 mg PO QAM [facility] Stop: 01/27/23 08:59 Last Admin: 12/29/22 08:43 Dose: 20 mg Documented By: Admin: 12/28/22 08:18 Dose: 20 mg Documented By: CASTILLO Venlafaxine HCl (Venlafaxine Hcl Xr 150 Mg Capxr) 150 mg PO BID [facility] Stop: 01/27/23 08:59 Last Admin: 12/29/22 08:43 Dose: 150 mg Documented By: Admin: 12/28/22 22:42 Dose: Not Given Documented By: Admin: 12/28/22 08:17 Dose: 150 mg Documented By: [facility] Imaging Data Radiologist's Impression: Lumbar Spine CT 12/27/22 17:27 Exam(s): CT L SPINE EXAM: CT Lumbar Spine Without Intravenous Contrast CLINICAL HISTORY: Reason for exam: Back Pain, s/p fall. TECHNIQUE: Axial computed tomography images of the lumbar spine without intravenous contrast. CTDI is 39.4 mGy and DLP is 1187.82 mGy-cm. Automated exposure control was utilized for the study. A dose lowering technique was utilized adhering to the principles of ALARA. COMPARISON: None FINDINGS: Bones: Left convex curvature of the spine. No acute fracture or bony lesion. Disc spaces: Grade 1 anterolisthesis of L4 on L5. Degenerative changes of the spine. Mild spinal canal stenosis at L3-4 and L4-5. Mild to moderate neural foraminal stenoses at L4-5 and L3-4. Soft tissues: Normal. Other: Atherosclerotic changes of the vasculature. Cholelithiasis. IMPRESSION: No acute traumatic abnormality. Electronically signed by: Dianna Dumont M.D. 12/27/22 19:41 PM Discharge Plan Visit Data Chief Complaint: Fall Stated Complaint: FALL, LOWER BACK PAIN ED Provider: Shay Trejo Discharge Problem: Fall, Back pain, Anterolisthesis of lumbar spine Patient Disposition: Home - Self-Care Condition: Fair Discharge Instructions Interventions: ED Discharge Assessment Last Done: 12/27/22 23:59 Fall Qualifiers: Encounter type: initial encounter Qualified Code(s): W19.XXXA - Unspecified fall, initial encounter Back pain Qualifiers: Back pain location: low back pain Chronicity: acute Back pain laterality: midline Sciatica presence: without sciatica Qualified Code(s): M54.50 - Low back pain, unspecified
[2022-12-27] MEDS ORDERED: ACETAMINOPHEN 500 MG TAB PO STA (17:27)
[2022-12-27] MEDS ORDERED: LIDOCAINE 5% 1 PATCH TD STA (17:27)
[2022-12-27] MEDS ORDERED: diazePAM INJ 5 MG/ML 2 ML CARP IV STA (17:27)
[2022-12-27 18:11] LABS: BUN Creatinine Ratio 17.5 (10-20); Basophils # (auto) 0.08 K/uL (0.00-0.20); Basophils % (auto) 1.1 %; Calcium 9.2 mg/dl (8.6-10.3); Eosinophils # (auto) 0.22 K/uL (0.00-0.50); Est GFR (African American) 63.3 ml/min; Est GFR (Non-African American) 54.6 ml/min; Hematocrit (blood only) 35.3 % (37.0-47.0); Hemoglobin 11.8 g/dl (12.0-16.0); Immature Granulocytes # (auto) 0.02 K/uL (0.01-0.20); Immature Granulocytes % (auto) 0.3 %; Lymphocytes # (auto) 2.06 K/uL (1.20-3.40); Lymphocytes % (auto) 28.5 %; Mean Corpuscular Hemoglobin 29.4 pg (25.0-34.0); Mean Corpuscular Hgb Conc 33.4 g/dL (32.0-36.0); Monocytes # (auto) 0.57 K/uL (0.11-0.59); Monocytes % (auto) 7.9 %; Neutrophils # (auto) 4.28 K/uL (1.40-6.50); Neutrophils % (auto) 59.2 %; Platelet Count 230 K/uL (130-400); Potassium 4.3 mmol/L (3.5-5.1); RDW Coefficient of Variation 12.4 % (11.5-14.5); RDW Standard Deviation 39.7 fL (36.4-46.3); Red Blood Count 4.01 M/uL (4.20-5.40); White Blood Count 7.23 K/ul (4.8-10.8)
[2022-12-27] MEDS ORDERED: MoRPHine SULFATE 10 MG/ML CARP/VIAL IV STA (18:56)
--- NOTE | 2022-12-27 19:42 | CT Scan Report ---
Exam(s): CT L SPINE EXAM: CT Lumbar Spine Without Intravenous Contrast CLINICAL HISTORY: Reason for exam: Back Pain, s/p fall. TECHNIQUE: Axial computed tomography images of the lumbar spine without intravenous contrast. CTDI is 39.4 mGy and DLP is 1187.82 mGy-cm. Automated exposure control was utilized for the study. A dose lowering technique was utilized adhering to the principles of ALARA. COMPARISON: None FINDINGS: Bones: Left convex curvature of the spine. No acute fracture or bony lesion. Disc spaces: Grade 1 anterolisthesis of L4 on L5. Degenerative changes of the spine. Mild spinal canal stenosis at L3-4 and L4-5. Mild to moderate neural foraminal stenoses at L4-5 and L3-4. Soft tissues: Normal. Other: Atherosclerotic changes of the vasculature. Cholelithiasis. IMPRESSION: No acute traumatic abnormality. Electronically signed by: Dianna Dumont M.D. 12/27/22 19:41 PM
[2022-12-27] MEDS ORDERED: fentaNYL citrate PF 100 MCG/2 ML VIAL IV STA (20:00)
[2022-12-27] MEDS: oxyCODONE IR HOME PACK PO ONE ×2 (21:36→23:06)
[2022-12-27] MEDS ORDERED: LANTUS PER UNIT CHARGE SQ STA (22:06)
--- NOTE | 2022-12-27 22:06 | History & Physical Report ---
Date of Service December 27, 2022 Assessment & Plan (1) Back pain: Plan: 72yo female presenting with severe back pain following a ground level fall. -Observation to medical -Tylenol 1gm PO TID -Lidoderm patch -Heat K-pad as needed -Toradol 15mg IV q6h as needed -Morphine as needed per tiered pain scale -Continue Flexeril 10mg po TID PRN -PT/OT evaluation (2) Type 2 diabetes mellitus, uncontrolled: Plan: Overall poorly controlled. Last [id number]=52.2 on 10/25/22. Elevated blood sugar today at 285 -Lantus 20u BID -ISS -Goal blood sugar 110-140 -Hold Metformin -Continue Gabapentin for peripheral neuropathy (3) Hypertension: Plan: Chronic. Well controlled -Continue Lisinopril 2.5mg po daily (4) Cardiomyopathy: Plan: Chronic. Compensated -Continue Lisinopril -Continue ASA (5) Dyslipidemia: Plan: -Continue Crestor (6) Depression: Plan: -Continue Buspirone -Continue Venlafaxine (7) GERD (gastroesophageal reflux disease): Plan: -Protonix during admission History of Present Illness Chief Complaint: back pain following fall Primary Care Provider: Yessi Gray MD [place] is a 72yo female with history of NICM with EF of 25-30%, HTN, HLP, GERD presenting with intractable back pain following a fall. Patient was staying a friend's house in [place] and caring for her dog. She was walking in the driveway when she lost her footing and fell onto her left side. She was unable to get up due to pain but a neighbor helped her up. She denies fever, chills, chest pain, palpitations, cough, SOB, dizziness, numbness/tingling or weakness preceding or following the fall. No head trauma or LOC. Patient presently complaining of ongoing back pain and spasm despite multiple doses of pain medication (Tylenol, Diazepam, Fentanyl, Morphine, Lidoderm). No additional complaints at this time. Patient lives alone and has 13 steps to get into the home. ER Course: Tyenol 1000mg PO Diazepam 3mg IV Lidocaine patch Morphine 6mg IV Fentanyl 50mcg IV Allergies Allergy/AdvReac Type Severity Reaction Status Date / Time No Known Drug Allergies Allergy Unknown Verified 12/19/22 14:16 Home Medications Medication Instructions Recorded Confirmed Type blood-glucose meter (OneTouch #1 ea 10/29/18 12/19/22 History UltraMini kit) cholecalciferol (vitamin D3) 50 2,000 units PO DAILY 11/08/18 12/27/22 History mcg (2,000 unit) capsule cyanocobalamin (vitamin B-12) 1,000 mcg PO DAILY 11/08/18 12/27/22 History 1,000 mcg tablet aspirin 81 mg tablet,delayed 81 mg PO DAILY #90 tabs 06/23/19 12/27/22 Rx release cyclobenzaprine 10 mg tablet 10 mg PO TID PRN muscle spasm 12/12/19 12/27/22 History albuterol sulfate 90 mcg/actuation 2 puff inhalation Q4H PRN 06/24/20 12/27/22 Rx aerosol inhaler (ProAir HFA) Shortness Of Breath Or Wheezing #8.5 grams melatonin 3 mg tablet 3 mg PO HS PRN sleep #30 tabs 04/06/21 12/27/22 Rx ondansetron 8 mg disintegrating 8 mg PO Q8H PRN nausea and 08/25/21 12/27/22 Rx tablet vomiting #90 tabs esomeprazole magnesium 40 mg 40 mg PO DAILY 10/31/21 12/27/22 History capsule,delayed release (Nexium) venlafaxine 150 mg 150 mg PO BID 01/18/22 12/27/22 History capsule,extended release 24 hr buspirone 15 mg tablet 30 mg PO BID 03/28/22 12/27/22 History pen needle, diabetic 32 gauge x #400 ea 05/23/22 12/19/22 Rx 5/32" (BD Ultra-Fine Marleny Pen Needle) amoxicillin 500 mg capsule See Rx Instructions PO .COMPLEX 08/25/22 12/27/22 Rx #16 caps insulin lispro 100 unit/mL See Rx Instructions subcut TID #45 08/30/22 12/27/22 Rx subcutaneous pen (Humalog KwikPen mL (U-100) Insulin) lisinopril 2.5 mg tablet 2.5 mg PO QAM #90 tabs 10/24/22 12/27/22 Rx metformin 1,000 mg tablet 1,000 mg PO BID #180 tabs 10/24/22 12/27/22 Rx rosuvastatin 20 mg tablet 20 mg PO QAM #90 tabs 10/24/22 12/27/22 Rx insulin glargine 100 unit/mL (3 40 unit (0.4 mL) subcut QPM #45 mL 11/29/22 12/27/22 Rx mL) subcutaneous pen (Lantus Solostar U-100 Insulin) gabapentin 300 mg capsule 300 mg PO TID #270 caps 11/30/22 12/27/22 Rx blood sugar diagnostic (OneTouch #600 ea 12/05/22 12/19/22 Rx Ultra Test strips) Past Med/Surg History Medical History Acute anterior epistaxis Anxiety C6 cervical fracture Cardiomyopathy Chronic kidney disease Chronic osteoarthritis Depression Diabetic peripheral neuropathy associated with type 2 diabetes mellitus Dysesthesia Dyslipidemia Elevated troponin Fall Frequent falls Gastroparesis GERD (gastroesophageal reflux disease) Hiatal hernia Small Hypertension Lumbar radiculopathy Mixed conductive and sensorineural hearing loss of both ears NSTEMI (non-ST elevated myocardial infarction) Pancreatic cyst [facility] Perianal abscess Urinary incontinence Venous insufficiency (chronic) (peripheral) Vitamin D deficiency Vitiligo Surgical History History of total knee replacement RT TKA APPROX 15 YEARS AGO L TKA 01/23/2018 Hx of cardiac cath Mar 2018. Normal coronary arteries. Family History Mother Hypertension Cancer Melanoma Father Breast cancer Cancer Melanoma Family/Other Breast cancer Unknown Osteoarthritis Denies family history of Ovarian cancer Prostate cancer Heart disease Colorectal cancer Lung disease Stroke Asthma Social History Smoking Status: Never smoker Second Hand Exposure: No; Do You Dip or Chew Tobacco: No; Hx Alcohol Use: No Hx Substance Use: No Preferred Language: [place] Citizen Communication Ability: Effective Communication Ability Comment: D/t facial edema from fall pt cannot see well enough to sign documents now Visual Impairment: Diminished Hearing Ability: Normal 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: No Beliefs That Will Affect Care: None marital status: Current Living Situation: Parent Current Living Situation Comment: Lives with very active 88 year old mother current occupational status: disabled Feels Safe at Home: Yes and No Is there a partner from a previous relationship who is making you feel unsafe now?: No Childhood Exposure to Second-Hand Smoke: No Diet: regular caffeine: Yes Dental Care, Regularly: Yes Physical Activity Frequency: 3-4 Times per Week Physical Activity Frequency Comment: walk Seatbelt Use: always Sunscreen Use: No (not in the sun) Do you think of yourself as: straight/heterosexual Assistive Devices: Walker Review of Systems Review of Systems: All systems reviewed & are unremarkable except as noted in HPI & below Physical Exam Physical Exam: General: patient using walker, pacing around room C10 with frequent back spasm, calling out in pain. Oriented x 4 Skin: warm, dry, intact, no rashes or lesions HEENT: NC/AT, PERRL, EOMI, anicteric sclera, conjunctiva without injection, external ear normal to inspection and nontender, nares patent, moist mucus membranes, dentition intact, no oropharyngeal lesions, neck supple, trachea midline, no LAD, no thyromegaly, no JVD Heart: +S1/S2, regular, no m/r/g Lungs: equal air entry bilaterally, no rales/rhonchi/wheezes Abd: +BS, soft, NT/ND, no masses/organomegaly/ascites Ext: warm, 2+ pulses in UE/LE bilaterally, no clubbing/cyanosis or edema Neuro: nonfocal, patient AA&O x 4, speech intact, no facial droop, moving all extremities on command with equal strength 5/5 Warmth and tenderness of left paraspinal musculature. Results & Data Results & Data Vital Signs (Past 12 Hours) Vital Signs Temp Pulse Pulse Resp BP BP Pulse Ox 12/27/22 17:16 53 L 18 122/77 99 12/27/22 17:16 37 C 53 L 18 122/77 99 O2 Del Method 12/27/22 17:16 12/27/22 17:16 Room Air Laboratory Results Laboratory Results WBC 7.23 K/ul (4.8-10.8) 12/27/22 17:27 RBC 4.01 M/uL (4.20-5.40) L 12/27/22 17:27 Hgb 11.8 g/dl (12.0-16.0) L 12/27/22 17:27 Hct 35.3 % (37.0-47.0) L 12/27/22: MCV 88.0 fL (80.0-100.0) 12/27/22: MCH 29.4 pg (25.0-34.0) 12/27/22: MCHC 33.4 g/dL (32.0-36.0) 12/27/22: RDW Std Deviation 39.7 fL (36.4-46.3) 12/27/22 RDW Coeff of Barrett 12.4 % (11.5-14.5) 12/27/22 Plt Count 230 K/uL (130-400) 12/27/22: MPV 10.0 fL (9.4-12.4) 12/27/22 Immature Gran % (Auto) 0.3 % 12/27/22 Neut % (Auto) 59.2 % 12/27/22 Lymph % (Auto) 28.5 % 12/27/22 Toombs % (Auto) 7.9 % 12/27/22 Eos % (Auto) 3.0 % 12/27/22: Baso % (Auto) 1.1 % 12/27/22 Neut # (Auto) 4.28 K/uL (1.40-6.50) 12/27/22 Lymph # (Auto) 2.06 K/uL (1.20-3.40) 12/27/22: Toombs # (Auto) 0.57 K/uL (0.11-0.59) 12/27/22: Eos # (Auto) 0.22 K/uL (0.00-0.50) 12/27/22: Baso # (Auto) 0.08 K/uL (0.00-0.20) 12/27/22 Immature Gran # (Auto) 0.02 K/uL (0.01-0.20) 12/27/22: Sodium 134 mmol/L (136-145) L 12/27/22: Potassium 4.3 mmol/L (3.5-5.1) 12/27/22: Chloride 101 mmol/L (98-107) 12/27/22: Carbon Dioxide 26 mmol/L (21-32) 12/27/22: Anion Gap 7 (3-11) 12/27/22: BUN 18 mg/dl (6-23) 12/27/22: Creatinine 1.03 mg/dl (0.6-1.2) 12/27/22: Est Cr Clr Drug Dosing 54.0 ml/min 12/27/22 Est GFR ( Amer) 63.3 ml/min 12/27/22: Est GFR (Non-Af Amer) 54.6 ml/min 12/27/22: BUN/Creatinine Ratio 17.5 (10-20) 12/27/22: Glucose 285 mg/dl (70-99(Fasting)) H 12/27/22: POC Glucose 302 mg/dl (70-99) H* 12/27/22 20:13 Calcium 9.2 mg/dl (8.6-10.3) 12/27/22: Impressions Lumbar Spine CT 12/27/22 Exam(s): CT L SPINE EXAM: CT Lumbar Spine Without Intravenous Contrast CLINICAL HISTORY: Reason for exam: Back Pain, s/p fall. TECHNIQUE: Axial computed tomography images of the lumbar spine without intravenous contrast. CTDI is 39.4 mGy and DLP is 1187.82 mGy-cm. Automated exposure control was utilized for the study. A dose lowering technique was utilized adhering to the principles of ALARA. COMPARISON: None FINDINGS: Bones: Left convex curvature of the spine. No acute fracture or bony lesion. Disc spaces: Grade 1 anterolisthesis of L4 on L5. Degenerative changes of the spine. Mild spinal canal stenosis at L3-4 and L4-5. Mild to moderate neural foraminal stenoses at L4-5 and L3-4. Soft tissues: Normal. Other: Atherosclerotic changes of the vasculature. Cholelithiasis. IMPRESSION: No acute traumatic abnormality. Electronically signed by: Dianna Dumont M.D. 12/27/22 19:41 PM PG Care Time/CCT Total # of Minutes Spent Total Time Spent with Patient: Total time spent is greater than 50% in coordination of care (as documented) at patient's floor/unit and/or counseling patient: Coding Level of Care Code 70071 INT INP/OBS CARE MIN Diagnoses Back pain M54.50 Back pain laterality: midline Back pain location: low back pain Chronicity: acute Sciatica presence: without sciatica Type 2 diabetes mellitus, uncontrolled E11.649 Coma presence: without coma Glycemic state: with hypoglycemia Hypertension I10 Hypertension type: essential hypertension Cardiomyopathy I42.9 Dyslipidemia E78.5 Depression F32.9 GERD (gastroesophageal reflux disease) K21.9 (1) Back pain Back pain laterality: midline Back pain location: low back pain Chronicity: acute Sciatica presence: without sciatica Qualified Code(s): M54.50 - Low back pain, unspecified (2) Type 2 diabetes mellitus, uncontrolled Coma presence: without coma Glycemic state: with hypoglycemia Qualified Code(s): E11.649 - Type 2 diabetes mellitus with hypoglycemia without coma (3) Hypertension Hypertension type: essential hypertension Qualified Code(s): I10 - Essential (primary) hypertension
[2022-12-27] MEDS ORDERED: INSULIN ASPART PER UNIT CHARGE SC STA (22:22)
[2022-12-27] MEDS ORDERED: busPIRone 15 MG TAB PO STA (22:30)
[2022-12-27] MEDS ORDERED: GABAPENTIN 300 MG CAP PO STA (22:30)
[2022-12-27] MEDS ORDERED: MoRPHine SULFATE 4 MG/ML 1 ML CARP\\VIAL IV STA (23:13)
[2022-12-28] MEDS ORDERED: ALBUTEROL HFA 8 GM INHALER INH PRN (00:35)
[2022-12-28] MEDS ORDERED: MoRPHine SULFATE 2 MG/ML CARP IV PRN (00:35)
[2022-12-28] MEDS ORDERED: GLUCOSE 40% GEL 15 GM TUBE PO PRN (00:35)
[2022-12-28] MEDS ORDERED: GLUCAGON FOR INJ 1 MG VIAL SQ PRN (00:35)
[2022-12-28] MEDS ORDERED: CYCLOBENZAPRINE HCL 10 MG TAB PO STA (00:35)
[2022-12-28] MEDS ORDERED: GLUCOSE 10 TAB/TUBE PO PRN (00:35)
[2022-12-28] MEDS ORDERED: ONDANSETRON INJ 2 MG/ML 2 ML VIAL IV PRN (00:35)
[2022-12-28] MEDS ORDERED: DEXTROSE 50% 50 ML SYRINGE IV PRN (00:35)
[2022-12-28] MEDS ORDERED: MELATONIN 3 MG TAB PO PRN (00:35)
[2022-12-28] MEDS ORDERED: CARBOHYDRATES FOR HYPOGLYCEMIA PO PRN (00:35)
[2022-12-28] MEDS: KETOROLAC TROMETHAMINE 15 MG/ML VIAL IV PRN (01:22)
[2022-12-28] MEDS: ACETAMINOPHEN 500 MG TAB PO SCH ×3 (05:53→22:42)
[2022-12-28 07:44] LABS: Hematocrit (blood only) 32.5 % (37.0-47.0); Hemoglobin 10.8 g/dl (12.0-16.0); Mean Corpuscular Hemoglobin 29.5 pg (25.0-34.0); Mean Corpuscular Hgb Conc 33.2 g/dL (32.0-36.0); Mean Corpuscular Volume 88.8 fL (80.0-100.0); Mean Platelet Volume 9.9 fL (9.4-12.4); Platelet Count 187 K/uL (130-400); RDW Coefficient of Variation 12.5 % (11.5-14.5); RDW Standard Deviation 40.8 fL (36.4-46.3); Red Blood Count 3.66 M/uL (4.20-5.40); White Blood Count 6.58 K/ul (4.8-10.8)
[2022-12-28] MEDS: lisinopril 2.5 MG TAB PO SCH (08:16)
[2022-12-28] MEDS: PANTOprazole 40 MG TAB PO SCH (08:16)
[2022-12-28] MEDS: ASPIRIN 81 MG ECTAB PO SCH (08:16)
[2022-12-28] MEDS: busPIRone 15 MG TAB PO SCH ×2 (08:17→22:41)
[2022-12-28] MEDS: GABAPENTIN 300 MG CAP PO SCH ×3 (08:17→22:42)
[2022-12-28] MEDS: VENLAFAXINE HCL XR 150 MG CAPXR PO SCH ×2 (08:17→22:42)
[2022-12-28] MEDS: ROSUVASTATIN CALCIUM 20 MG TAB PO SCH (08:18)
[2022-12-28] MEDS: CYCLOBENZAPRINE HCL 10 MG TAB PO PRN ×2 (08:28→14:49)
[2022-12-28] MEDS: INSULIN ASPART PER UNIT CHARGE SC SCH ×4 (08:29→22:46)
[2022-12-28 08:31] LABS: BUN Creatinine Ratio 22.3 (10-20); Est GFR (African American) 63.3 ml/min; Est GFR (Non-African American) 54.6 ml/min; Potassium 4.7 mmol/L (3.5-5.1)
[2022-12-28] MEDS: metFORMIN HCL 500 MG TAB PO SCH ×2 (08:34→17:20)
[2022-12-28] MEDS ORDERED: LANTUS PER UNIT CHARGE SQ SCH (09:00)
--- NOTE | 2022-12-28 15:52 | Hospitalist Progress Note ---
Date of Service December 28, 2022 Assessment & Plan (1) Back pain: Plan: Due to mechanical fall. With spasms. Baclofen and Lidoderm patch ordered. Heating pad also ordered as needed . Continue PT and OT while hospitalized (2) Type 2 diabetes mellitus, uncontrolled: Plan: Most recent hemoglobin A1c was greater than 10. Lantus has been switched to NPH insulin. Continue metformin. ADA diet. Sliding scale coverage. (3) Hypertension: Plan: Stable. Continue lisinopril (4) Cardiomyopathy: Plan: Stable. Continue lisinopril and aspirin therapy (5) Dyslipidemia: Plan: Stable. Continue statin therapy (6) Depression: Plan: Stable. Continue buspirone and venlafaxine (7) GERD (gastroesophageal reflux disease): Plan: Stable. Continue PPI therapy Plan Hopeful discharge to [facility] inpatient rehab tomorrowDecember 29 Admission and Anticipated Discharge Date Admission Date: December 28, 2022 Subjective Alert and oriented. Primary complaint is muscle spasms in her back with movement. Scheduled baclofen ordered. Diabetes is poorly controlled on Lantus and metformin. Last hemoglobin A1c was 10.2. Lantus switched to NPH insulin. We will continue metformin. [facility]ful discharge to [facility] tomorrowDecember 29 Review of Systems Review of Systems: Constitutional-no fever or chills ENT-no blurred vision, no double vision, no epistaxis, no sore throat Respiratory-no cough, no wheezing, no shortness of breath Cardiac-no palpitations, no chest pain, no syncope GI-no nausea, vomiting, diarrhea, melena, hematochezia -no urinary retention, no urinary incontinence, no dysuria, no hematuria Musculoskeletal-muscle spasms in back since her recent fall Skin-no bruising, no rashes, no pruritus Neuro-no isolated weakness, no paresthesia, no weakness Psych-no depression, no anxiety Physical Exam Physical Exam: General-alert and oriented x3, no fevers, no chills HEENT-head atraumatic and normocephalic, pupils equal and reactive to light, extraocular muscles intact Neck-no lymphadenopathy or thyromegaly, trachea midline Chest-clear to auscultation percussion. No rales, wheezing or rhonchi Cardiac-regular rate and rhythm, normal S1 and S2 Abdomen-normal bowel sounds, nontender, no hepatosplenomegaly Extremities-no cyanosis, clubbing, or edema Neuro-cranial nerves II through XII intact, motor and sensory function within normal limits, strength symmetrical , no focal deficits Psych-normal affect, normal mood Results & Data Results & Data Vital Signs (Past 12 Hours) Vital Signs Temp Pulse Resp BP Pulse Ox O2 Del Method 12/28/22 14:23 36.6 C 74 16 110/70 94 Room Air 12/28/22 07:32 36.6 C 71 16 106/66 94 Room Air Laboratory Results 12/28/22 07:07 12/28/22 07:07 PG Care Time/CCT Total # of Minutes Spent Total Time Spent with Patient: Total time spent is greater than 50% in coordination of care (as documented) at patient's floor/unit and/or counseling patient: Coding Level of Care Code 97627 SUB INP/OBS CARE 3/50MIN Diagnoses Back pain M54.50 Back pain laterality: midline Back pain location: low back pain Chronicity: acute Sciatica presence: without sciatica Type 2 diabetes mellitus, uncontrolled E11.649 Glycemic state: with hypoglycemia Coma presence: without coma Hypertension I10 Hypertension type: essential hypertension Cardiomyopathy I42.9 Dyslipidemia E78.5 Depression F32.9 GERD (gastroesophageal reflux disease) K21.9 (1) Back pain Back pain laterality: midline Back pain location: low back pain Chronicity: acute Sciatica presence: without sciatica Qualified Code(s): M54.50 - Low back pain, unspecified (2) Type 2 diabetes mellitus, uncontrolled Glycemic state: with hypoglycemia Coma presence: without coma Qualified Code(s): E11.649 - Type 2 diabetes mellitus with hypoglycemia without coma (3) Hypertension Hypertension type: essential hypertension Qualified Code(s): I10 - Essential (primary) hypertension
[2022-12-28] MEDS: INSULIN HUMAN NPH SC SCH (17:42)
[2022-12-28] MEDS: BACLOFEN 10 MG TAB PO SCH (22:41)
[2022-12-29 00:31] LABS: Hemoglobin 11.1 g/dl (12.0-16.0); Mean Corpuscular Hemoglobin 29.7 pg (25.0-34.0); Mean Corpuscular Hgb Conc 32.6 g/dL (32.0-36.0); Mean Corpuscular Volume 90.9 fL (80.0-100.0); Platelet Count 207 K/uL (130-400); RDW Coefficient of Variation 12.4 % (11.5-14.5); RDW Standard Deviation 41.3 fL (36.4-46.3); Red Blood Count 3.74 M/uL (4.20-5.40); White Blood Count 7.25 K/ul (4.8-10.8)
[2022-12-29 00:35] LABS: BUN Creatinine Ratio 26.2 (10-20); Calcium 9.1 mg/dl (8.6-10.3); Creatinine Clr Calc Pharmacy 44.1 ml/min; Est GFR (African American) 49.6 ml/min; Est GFR (Non-African American) 42.8 ml/min; Potassium 4.6 mmol/L (3.5-5.1)
--- NOTE | 2022-12-29 05:49 | CT Scan Report ---
CT OF THE HEAD WITHOUT CONTRAST CLINICAL HISTORY: lethargy 24 hrs after fall COMPARISON STUDY: Head CT February 20, 2021. CT DOSE: 625.8 mGy.cm TECHNIQUE: Helical axial images of the head were obtained without IV contrast. Automated exposure con trol was utilized for the study. A dose lowering technique was utilized adhering to the principles o f ALARA. FINDINGS: No acute intracranial hemorrhage, midline shift or mass effect is present. The ventricular system is stable. The basal cisterns are patent. No extra-axial collections are present. There are no findings to suggest acute dural sinus thrombosis or acute territorial infarct. There is no acute minal varial fracture. IMPRESSION: 1. No acute intracranial findings. 2. No acute calvarial fracture. ACT 112: Negative or not required by law. Electronically signed by: Noel New M.D. 12/29/2022 5:47 AM
[2022-12-29] MEDS: MoRPHine SULFATE 4 MG/ML 1 ML CARP\\VIAL IV PRN ×2 (06:18→10:45)
[2022-12-29] MEDS: KETOROLAC TROMETHAMINE 15 MG/ML VIAL IV PRN (06:19)
[2022-12-29] MEDS: ACETAMINOPHEN 500 MG TAB PO SCH ×2 (06:25→14:24)
[2022-12-29] MEDS: BACLOFEN 10 MG TAB PO SCH ×2 (08:42→14:21)
[2022-12-29] MEDS: ROSUVASTATIN CALCIUM 20 MG TAB PO SCH (08:43)
[2022-12-29] MEDS: VENLAFAXINE HCL XR 150 MG CAPXR PO SCH (08:43)
[2022-12-29] MEDS: PANTOprazole 40 MG TAB PO SCH (08:43)
[2022-12-29] MEDS: metFORMIN HCL 500 MG TAB PO SCH (08:43)
[2022-12-29] MEDS: ASPIRIN 81 MG ECTAB PO SCH (08:43)
[2022-12-29] MEDS: GABAPENTIN 300 MG CAP PO SCH ×2 (08:43→14:22)
[2022-12-29] MEDS: busPIRone 15 MG TAB PO SCH (08:44)
[2022-12-29] MEDS: lisinopril 2.5 MG TAB PO SCH (08:44)
[2022-12-29] MEDS: INSULIN ASPART PER UNIT CHARGE SC SCH ×2 (08:49→12:27)
[2022-12-29] MEDS: INSULIN HUMAN NPH SC SCH (08:50)
[2022-12-29] MEDS ORDERED: LIDOCAINE 5% 1 PATCH TD SCH (09:00)
--- NOTE | 2022-12-29 12:36 | Discharge Summary ---
Date of Service December 29, 2022 Admission HPI Per Admitting Provider [place] is a 72yo female with history of NICM with EF of 25-30%, HTN, HLP, GERD presenting with intractable back pain following a fall. Patient was staying a friend's house in [place] and caring for her dog. She was walking in the driveway when she lost her footing and fell onto her left side. She was unable to get up due to pain but a neighbor helped her up. She denies fever, chills, chest pain, palpitations, cough, SOB, dizziness, numbness/tingling or weakness preceding or following the fall. No head trauma or LOC. Patient presently complaining of ongoing back pain and spasm despite multiple do ses of pain medication (Tylenol, Diazepam, Fentanyl, Morphine, Lidoderm). No additional complaints at this time. Patient lives alone and has 13 steps to get into the home. ER Course: Tyenol 1000mg PO Diazepam 3mg IV Lidocaine patch Morphine 6mg IV Fentanyl 50mcg IV Principal Diagnosis Mechanical fall, back muscle strain with spasms, uncontrolled type 2 diabetes Discharge Exam General-alert and oriented x3, no fevers, no chills HEENT-head atraumatic and normocephalic, pupils equal and reactive to light, extraocular muscles intact Neck-no lymphadenopathy or thyromegaly, trachea midline Chest-clear to auscultation percussion. No rales, wheezing or rhonchi Cardiac-regular rate and rhythm, normal S1 and S2 Abdomen-normal bowel sounds, nontender, no hepatosplenomegaly Extremities-no cyanosis, clubbing, or edema Neuro-cranial nerves II through XII intact, motor and sensory function within normal limits, strength symmetrical , no focal deficits Psych-normal affect, normal mood Discharge Data Allergies Allergy/AdvReac Type Severity Reaction Status Date / Time No Known Drug Allergies Allergy Unknown Verified 12/19/22 14:16 Consultations 12/27/22 21:59 ED Decision to Admit Stat Ordered Studies 12/27/22 17:27 CT lumbar spine wo con Stat 12/28/22 23:23 CT head/brain wo con Stat Hospital Course (1) Back pain: Due to mechanical fall. With spasms. Baclofen and Lidoderm patch ordered. Heating pad also ordered as needed . Continue PT and OT while hospitalized. She prefers to stay hospitalized in acute care until the back spasms daily but this is not feasible. She has been accepted to [facility] and will be discharged today (2) Type 2 diabetes mellitus, uncontrolled: Most recent hemoglobin A1c was greater than 10. Lantus has been switched to NPH insulin. Continue metformin. ADA diet. Sliding scale coverage. Insulin levels have already improved. Unfortunately, she has incessant questions about her diabetic management and what she is going to do after discharge from [facility]. All questions were answered and she was reassured that the [facility] physicians will give her any new prescriptions that are required for proper diabetic management (3) Hypertension: Stable. Continue lisinopril (4) Cardiomyopathy: Stable. Continue lisinopril and aspirin therapy (5) Dyslipidemia: Stable. Continue statin therapy (6) Depression: Stable. Continue buspirone and venlafaxine (7) GERD (gastroesophageal reflux disease): Stable. Continue PPI therapy Plan Discharge to [facility] todayDecember 29 Total Time Total Time Spent Total Time Spent (In Minutes): 45 minutes Discharge Plan Discharge Items Patient Disposition: Transfer Inpatient Rehab Fac Reason For Visit: INTRACTABLE BACK PAIN S/P FALL Discharge Diagnosis: Mechanical fall, muscular back strain with intermittent spasms, uncontrolled type 2 diabetes Condition on Discharge: Fair Activity: Resume your previous activity Non-emergency contact: Primary Care Provider Call non-emergency contact if: you have any medication questions and your symptoms worsen Follow-up/Referrals: Yessi Gray MD [Primary Care Provider] - Diet: Carb Consistent or DM2 Addtl Attending Provider Instructions: Lantus has been switched to NPH insulin. Baclofen is used for muscle spasms. NPH insulin will be taken at breakfast and suppertime. Check your sugar level before each insulin dose and keep a record to show your primary care provider Pending Studies at Discharge: No Stand-Alone Forms: My [facility] Skilled Items Patient informed of condition?: Yes DNR: No Discharge Level of Care: Acute rehab Communicable Disease: No Discharge Prognosis: Stable Lines: None Urinary Catheter: No Medications and DC Order Prescriptions: New lidocaine 5 % Adhesive Patch,Medicated 1 patch transdermal QAM Qty: 0 0RF baclofen 10 mg Tablet 10 mg PO TID Qty: 0 0RF Novolin N NPH U-100 Insulin 100 unit/mL Suspension 20 unit SC BIDM Qty: 0 0RF pantoprazole 40 mg Tablet,Delayed Release (Dr/Ec) 40 mg PO DAILY Qty: 0 0RF metformin 500 mg Tablet 1,000 mg PO BIDM Qty: 0 0RF Continued aspirin 81 mg tablet,delayed release (DR/EC) 81 mg PO DAILY Qty: 90 3RF ondansetron 8 mg tablet,disintegrating 8 mg PO Q8H PRN (Reason: nausea and vomiting) Qty: 90 0RF (DME) pen needle, diabetic [BD Ultra-Fine Marleny Pen Needle] 32 gauge x 5/32" needle See Dose Instructions .ROUTE .MEDSUPPLY Qty: 400 3RF Dose Instruction: As directed Rx Instructions: use to inject insulin 4 x daily amoxicillin 500 mg capsule See Rx Instructions PO .COMPLEX Qty: 16 0RF Rx Instructions: TAKE 4 CAPSULES 1 HOUR PRIOR TO DENTAL APPOINTMENT insulin lispro [Humalog KwikPen Insulin] 100 unit/mL insulin pen See Rx Instructions subcut TID Qty: 45 3RF Rx Instructions: Use with scale 16 units in AM 10 units with lunch 10 units dinner subcut three times a day; MDD50 units lisinopril 2.5 mg tablet 2.5 mg PO QAM Qty: 90 3RF metformin 1,000 mg tablet 1,000 mg PO BID Qty: 180 3RF rosuvastatin 20 mg tablet 20 mg PO QAM Qty: 90 3RF gabapentin 300 mg capsule 300 mg PO TID Qty: 270 3RF (DME) OneTouch Ultra Test Strip See Rx Instructions .Route Qty: 600 1RF Rx Instructions: test 6 times a day esomeprazole magnesium [Nexium] 40 mg capsule,delayed release(DR/EC) 40 mg PO DAILY buspirone 15 mg tablet 30 mg PO BID cyclobenzaprine 10 mg tablet 10 mg PO TID PRN (Reason: muscle spasm) melatonin 3 mg tablet 3 mg PO HS PRN (Reason: sleep) Qty: 30 2RF Rx Instructions: take 1-2 hours prior to bedtime cyanocobalamin (vitamin B-12) 1,000 mcg tablet 1,000 mcg PO DAILY cholecalciferol (vitamin D3) 2,000 unit capsule 2,000 units PO DAILY (DME) blood-glucose meter [OneTouch UltraMini] kit See Dose Instructions .ROUTE .MEDSUPPLY Qty: 1 Rx Instructions: As directed albuterol sulfate [ProAir HFA] 90 mcg/actuation HFA aerosol inhaler 2 puff INH Q4H PRN (Reason: Shortness Of Breath Or Wheezing) Qty: 8.5 3RF venlafaxine 150 mg capsule,extended release 24hr 150 mg PO BID Discontinued insulin glargine [Lantus Solostar U-100 Insulin] 100 unit/mL (3 mL) insulin pen 40 unit SQ QPM Qty: 45 3RF Discharge Orders: Discharge Order (Routine); Ordered 12/29/22 Ordered By: Miguel Duckworth Admission Data Admit Date/Time: 12/28/22 14:36 Attending Provider: Miguel Duckworth Admit Provider: Shelly Rain Primary Care Provider: Yessi Gray Other Providers: Shelly Rain ; [facility] Coding Level of Care Code 62125 INP/OBS DISCH >30 MIN Diagnoses Back pain M54.50 Back pain laterality: midline Back pain location: low back pain Chronicity: acute Sciatica presence: without sciatica Type 2 diabetes mellitus, uncontrolled E11.649 Glycemic state: with hypoglycemia Coma presence: without coma Hypertension I10 Hypertension type: essential hypertension Cardiomyopathy I42.9 Dyslipidemia E78.5 Depression F32.9 GERD (gastroesophageal reflux disease) K21.9
[2022-12-29] MEDS ORDERED: INSULIN HUMAN NPH SC SCH (17:00)
--- NOTE | 2023-01-03 16:02 | Coding Query ---
CODING QUERY FOR UNCONTROLLED DIABETES To promote full compliance with coding requirements relating to patient care, provider participation is requested in all cases of cookie padder uncertainty. Please assist us with the question(s) below: Coding Question: The term uncontrolled Diabetes was used throughout the record. To be able to code this diagnosis properly, could you please clarify the diagnosis below: ( ) Uncontrolled Diabetes meaning hypoglycemia (x ) Uncontrolled Diabetes meaning hyperglycemia ( ) Other (please specify) Principal Diagnosis: "that condition established after study, to be chiefly responsible for occasioning the admission of the patient to the hospital for care." Co-Existing Principal Diagnosis: "when two or more diagnoses equally meet the criteria for principal diagnosis as determined by the circumstances of admission, diagnostic work up, and/or therapy provided, and the Alphabetic Index, Tabular List, or another coding guideline does not provide sequencing direction, any one of the diagnoses may be sequenced first." "When the physician has documented what appears to be a current diagnosis in the body of the record, but has not included the diagnosis in the final diagnostic statement, the physician should be asked whether the diagnosis should be added." (Source [facility]oding [facility] 2 QTR90. p3-4) RAS
== END 2022-12-29 15:20 | DRG 552 ==
LOC: ED 17:08 → 3N 17:08 → SUATTDRO 22:04 → 3N 23:59

== ENCOUNTER 2024-01-11 18:53 | Inpatient (IN) ==
[2024-01-11 20:08] LABS: Basophils # (auto) 0.07 K/uL (0.00-0.20); Basophils % (auto) 0.8 %; Eosinophils # (auto) 0.16 K/uL (0.00-0.50); Eosinophils % (auto) 1.9 %; Hematocrit (blood only) 40.1 % (37.0-47.0); Hemoglobin 12.9 g/dl (12.0-16.0); Immature Granulocytes # (auto) 0.04 K/uL (0.01-0.20); Immature Granulocytes % (auto) 0.5 %; Lymphocytes # (auto) 1.62 K/uL (1.20-3.40); Lymphocytes % (auto) 18.9 %; Mean Corpuscular Hemoglobin 28.9 pg (25.0-34.0); Mean Corpuscular Hgb Conc 32.2 g/dL (32.0-36.0); Mean Corpuscular Volume 89.9 fL (80.0-100.0); Mean Platelet Volume 10.2 fL (9.4-12.4); Monocytes # (auto) 0.54 K/uL (0.11-0.59); Monocytes % (auto) 6.3 %; Neutrophils # (auto) 6.13 K/uL (1.40-6.50); Neutrophils % (auto) 71.6 %; Platelet Count 375 K/uL (130-400); RDW Coefficient of Variation 13.8 % (11.5-14.5); RDW Standard Deviation 45.2 fL (36.4-46.3); Red Blood Count 4.46 M/uL (4.20-5.40); White Blood Count 8.56 K/ul (4.8-10.8)
[2024-01-11 20:18] LABS: Albumin Globulin Ratio 1.1 (0.9-2); BUN Creatinine Ratio 25.7 (10-20); Bilirubin,Total 0.5 mg/dl (0.2-1.0); Calcium 10.6 mg/dl (8.6-10.3); Creatinine Clr Calc Pharmacy 42.7 ml/min; Globulin 3.6 gm/dl (2.5-4.0); Magnesium 1.5 mg/dl (1.7-2.4); Phosphorus 4.2 mg/dl (2.5-4.9); Potassium 4.7 mmol/L (3.5-5.1); Total Protein 7.6 gm/dl (6.0-8.3)
[2024-01-11 20:31] LABS: INR 0.9 (0.9-1.1); Prothrombin Time 10.2 Seconds (9.0-12.0)
[2024-01-11 20:33] LABS: Thyroid Stimulating Hormone 3.231 uIu/ml (0.300-4.500)
--- NOTE | 2024-01-11 20:48 | Emergency Department Note ---
Impression & Plan Weakness, Ambulatory dysfunction, C2 cervical fracture, C1 cervical fracture, S/P cervical spinal fusion ED Provider Note NAME: PAUL PERSON AGE: 73 SEX: F : 1950 ARRIVES VIA: Ambulance INFORMANT: Patient ED PROVIDER(S): Ronnie Garcia MD CHIEF COMPLAINT: Weakness PLAN: Disposition: Admit MEDICAL DECISION MAKING: The patient is a pleasant 73-year-old woman with a past medical history of type 2 diabetes, diabetic peripheral neuropathy, gastroparesis, CKD with recent complicated history of a C2 fracture status post C1-C2 fusion who presents to the emergency department via EMS for ambulatory dysfunction where she is unable to walk with her walker. Patient presents in the setting of having C-spine surgery in September where in October this was complicated by a fall and pedicle screw that had entered the spinal canal was subsequently transferred back to [place] where she had again spine surgery and was discharged to [facility] and subsequently [facility] but after no improvement went back to [facility] where she completed rehab and was discharged today back to her home in the care of her mother. The mother describes that the hope was that given she could walk with a walker during her physical therapy sessions that she would not need to return to [place] and this is why she was discharged to home. However her mother reports upon arriving home she realized that her ability to ambulate was not good enough to care for her at home and reported she could not ambulate at all with her walker and so brought her back to the emergency department. They deny any falls since her discharge from [facility] today. On my evaluation the patient is chronically ill-appearing in no distress, afebrile with stable vital signs. She appears euvolemic. She exhibits generalized weakness without focal extremity deficits. Reflexes of the lower extremities are intact bilaterally. She has bilateral dorsal and plantarflexion intact. WBC, H/H and platelets within normal limits. Chemistry without metabolic acidosis. Calcium is 10.6 and magnesium 1.5 with IV repletion provided. Electrolytes otherwise unremarkable. LFTs unremarkable. High-sensitivity troponin 13.0, within normal limits. Lipase is not elevated. TSH was normal limits. UA is ordered and collection is pending. CT of the head and C-spine performed for completeness and are pending. Given the patient's ambulatory dysfunction where she is unable to manage at home patient was referred to hospital service for further management. Case was discussed with [place]. [place] [facility] [place], who will evaluate the patient for admission. CT of the head was subsequent negative for acute normalities. CT of the cervical spine describes old type II dens fracture where the dens remains offset by approximately 8 mm however status post posterior fusion at C1-C2. Further management per admitting team. Triage Nursing notes reviewed and agree them. Prior/external medical records reviewed Vital Signs: reviewed Differential diagnosis: Infection, dehydration, metabolic abnormality, hypo/hyperglycemia, electrolyte disturbance, anemia, hypoxia, cardiac sources, intracerebral event, toxicologic, neurologic, as well as other pathologies. ER treatment provided: See below. Diagnostics interpreted by me: ECG: Normal sinus rhythm, 98 bpm, no ectopy, no overt ST ovation or depression, QTc 449, QRS 82. Cardiac Monitoring: An order for continuous cardiac monitoring was placed and demonstrated Normal sinus rhythm, 98 bpm, no ectopy. Laboratory studies: See below Imaging studies: See below Consultation(s): Case was discussed with [place]. Zambrano [facility] [place], who will evaluate the patient for admission. HPI: The patient is a pleasant 73-year-old woman with a past medical history of type 2 diabetes, diabetic peripheral neuropathy, gastroparesis, CKD with recent complicated history of a C2 fracture status post C1-C2 fusion who presents to the emergency department via EMS for ambulatory dysfunction where she is unable to walk with her walker. Patient presents in the setting of having C-spine surgery in September where in October this was complicated by a fall and pedicle screw that had entered the spinal canal was subsequently transferred back to [place] where she had again spine surgery and was discharged to [facility] and subsequently [facility] but after no improvement went back to [facility] where she completed rehab and was discharged today back to her home in the care of her mother. The mother describes that the hope was that given she could walk with a walker during her physical therapy sessions that she would not need to return to [place] and this is why she was discharged to home. However her mother reports upon arriving home she realized that her ability to ambulate was not good enough to care for her at home and reported she could not ambulate at all with her walker and so brought her back to the emergency department. They deny any falls since her discharge from [facility] today. ROS: See above HPI for pertinent positives & negatives. A total of 10 systems reviewed and were otherwise negative. VITALS:See Below PHYSICAL EXAMINATION: GENERAL: Awake, alert, chronically ill-appearing, in no distress HENT: Normocephalic, atraumatic. Oropharynx unremarkable. EYES: Normal conjunctiva. Sclera non-icteric. NECK: Soft collar in place. RESPIRATORY: Clear to auscultation. CARDIAC: Regular rate, normal rhythm. Extremities warm and well perfused. Pulses equal. ABDOMEN: Soft, non-distended. No tenderness to palpation. No rebound or guarding. No masses. MUSCULOSKELETAL: Chest examination reveals no tenderness. The back is symmetrical on inspection without obvious abnormality. There is no CVA tenderness to palpation. No joint edema. LOWER EXTREMITIES: Calves are equal size bilaterally and non-tender. No edema. No discoloration. NEURO: CNII-XII grossly intact. No focal sensory or motor deficits noted. 4/5 strength and SILT x 4 extremities. SKIN: No rash or jaundice noted. Ronnie Garcia MD Past Med/Surg History Problem List (Updated 01/12/24 @ 04:05 by Ronnie Garcia MD) S/P cervical spinal fusion (Acute) Elevated alkaline phosphatase level Hypomagnesemia Ambulatory dysfunction (Acute) Weakness (Acute) C2 cervical fracture (Acute ~10/10/23) Nondisplaced fractures through the right and left posterior arches of C1 and C2 fracture/displaced type II odontoid fracture C1 cervical fracture (Acute ~10/10/23) Nondisplaced fractures through the right and left posterior arches of C1 and C2 fracture/displaced type II odontoid fracture Bile duct injury Cholecystitis Fall (Acute) Back pain (Acute) Chronic kidney disease Eustachian tube dysfunction Mixed hearing loss, bilateral Acquired deviated nasal septum Balance disorder Sacral back pain Type 2 diabetes mellitus, uncontrolled (Chronic) Diabetic peripheral neuropathy associated with type 2 diabetes mellitus (Chronic) Anxiety Pancreatic cyst (Chronic) [facility] Chronic osteoarthritis (Chronic) Greater trochanteric bursitis Chronic thoracic back pain Lumbar facet joint pain Urinary incontinence (Chronic) Lumbar radiculopathy (Chronic) Gastroparesis (Chronic) Dysesthesia (Chronic) Vitamin D deficiency (Chronic) Medical History Anterolisthesis of lumbar spine Elevated troponin Fall C6 cervical fracture Acute anterior epistaxis Perianal abscess Vitiligo Venous insufficiency (chronic) (peripheral) NSTEMI (non-ST elevated myocardial infarction) Mixed conductive and sensorineural hearing loss of both ears Frequent falls Cardiomyopathy Dyslipidemia Hypertension Hiatal hernia Small GERD (gastroesophageal reflux disease) Depression Surgical History Hx of cardiac cath Mar 2018. Normal coronary arteries. History of total knee replacement RT TKA APPROX 15 YEARS AGO L TKA 01/23/2018 Family History Mother Hypertension Cancer Melanoma Father Breast cancer Cancer Melanoma Family/Other Breast cancer Unknown Osteoarthritis Denies family history of Ovarian cancer Prostate cancer Heart disease Colorectal cancer Lung disease Stroke Asthma Social History Smoking Status: Never smoker Second Hand Exposure: No; Do You Dip or Chew Tobacco: No; Hx Alcohol Use: No Hx Substance Use: No Preferred Language: Polish Communication Ability: Effective Communication Ability Comment: D/t facial edema from fall pt cannot see well enough to sign documents now Visual Impairment: No Limitations Hearing Ability: Normal Latcher Required: No Beliefs That Will Affect Care: None marital status: Current Living Situation: Parent Current Living Situation Comment: Home with mother current occupational status: disabled Other Information That Helps Us Care for You: No Feels Safe at Home: Yes Safety Concerns: Feels Safe At This Time Childhood Exposure to Second-Hand Smoke: No Diet: regular caffeine: Yes Dental Care, Regularly: Yes Physical Activity Frequency: 3-4 Times per Week Physical Activity Frequency Comment: walk Seatbelt Use: always Sunscreen Use: No (not in the sun) Do you think of yourself as: straight/heterosexual Assistive Devices: Walker Allergies Allergies Allergy/AdvReac Type Severity Reaction Status Date / Time baclofen AdvReac Intermediate Hallucinati Verified 12/21/23 14:08 ng cyclobenzaprine AdvReac Intermediate Hallucinati Verified 12/21/23 14:08 ng Home Meds Home Medications Medication Instructions Recorded Confirmed cholecalciferol (vitamin D3) 50 2,000 units PO DAILY 11/08/18 12/21/23 mcg (2,000 unit) capsule cyanocobalamin (vitamin B-12) 1,000 mcg PO DAILY 11/08/18 12/21/23 1,000 mcg tablet venlafaxine 150 mg 150 mg PO BID 01/18/22 12/21/23 capsule,extended release 24 hr buspirone 15 mg tablet 30 mg PO BID 03/28/22 12/21/23 bupropion HCl 150 mg tablet,12 hr 300 mg PO DAILY 02/23/23 12/21/23 sustained-release amoxicillin 500 mg capsule 2,000 mg PO DIRECTED PRN 1 HR 03/09/23 12/21/23 PRIOR TO DENTAL PROCEDURES insulin lispro 100 unit/mL See Rx Instructions subcut TID 08/02/23 12/21/23 subcutaneous pen (Humalog KwikPen (U-100) Insulin) albuterol sulfate 90 mcg/actuation 2 puff inhalation Q4H PRN 10/10/23 12/21/23 aerosol inhaler Shortness Of Breath Or Wheezing insulin glargine 100 unit/mL (3 35 unit subcut QPM 10/10/23 12/21/23 mL) subcutaneous pen (Lantus Solostar U-100 Insulin) gabapentin 300 mg capsule 300 mg PO TID 12/21/23 12/21/23 Previous Rx's Medication Instructions Recorded aspirin 81 mg tablet,delayed 81 mg PO DAILY #90 tabs 06/23/19 release metformin 1,000 mg tablet 1,000 mg PO BID #180 tabs 10/24/22 rosuvastatin 20 mg tablet 20 mg PO QAM #90 tabs 10/24/22 esomeprazole magnesium 40 mg 40 mg PO DAILY #90 caps 01/16/23 capsule,delayed release (Nexium) pen needle, diabetic 32 gauge x #400 ea 03/15/23" (BD Ultra-Fine Marleny Pen Needle) blood sugar diagnostic (OneTouch #600 ea 05/10/23 Ultra Test strips) blood-glucose meter #1 ea 08/10/23 acetaminophen 500 mg tablet 1,000 mg (2 x 500 mg) PO TID PRN 11/30/23 pain #90 tabs amoxicillin 500 mg-potassium 1 tab PO BID 5 days #10 tabs 12/13/23 clavulanate 125 mg tablet (Augmentin) Results & Data (ED) Vital Signs Vital Signs - 24 hr 01/11/24 18:57 01/11/24 19:02 01/11/24 19:04 Temperature 36.6 C Temperature Source Oral Pulse Rate 98 H 97 H Pulse Rate from SpO2 Sensor Respiratory Rate 16 15 Blood Pressure 106/66 106/66 Blood Pressure Mean 79 81 Pulse Oximetry 97 Oxygen Delivery Method Room Air Room Air Sepsis Recent Fever Within 48 Hours No Sepsis New/Unexplained Change in Mental Status N/A Sepsis Action Taken by Nursing No Action Required 01/11/24 19:06 01/11/24 19:30 01/11/24 19:34 Temperature Temperature Source Pulse Rate 99 H 96 H Pulse Rate from SpO2 Sensor Respiratory Rate 16 Blood Pressure 116/72 Blood Pressure Mean 84 Pulse Oximetry 96 Oxygen Delivery Method Room Air Sepsis Recent Fever Within 48 Hours Sepsis New/Unexplained Change in Mental Status Sepsis Action Taken by Nursing 01/11/24 20:30 01/11/24 20:30 01/11/24 21:00 Temperature Temperature Source Pulse Rate 95 H 96 H 96 H Pulse Rate from SpO2 Sensor 96 H Respiratory Rate 20 13 20 Blood Pressure 116/74 120/66 Blood Pressure Mean 94 95 Pulse Oximetry 96 Oxygen Delivery Method Sepsis Recent Fever Within 48 Hours Sepsis New/Unexplained Change in Mental Status Sepsis Action Taken by Nursing 01/11/24 21:00 Temperature Temperature Source Pulse Rate 92 H Pulse Rate from SpO2 Sensor Respiratory Rate 20 Blood Pressure 120/66 Blood Pressure Mean 95 Pulse Oximetry 95 Oxygen Delivery Method Sepsis Recent Fever Within 48 Hours Sepsis New/Unexplained Change in Mental Status Sepsis Action Taken by Nursing Laboratory Data Attestation: I reviewed the patient's lab results. 01/11/24 19:10 01/11/24 19:10 Lab Results 01/11/24 Range/Units 19:10 WBC 8.56 (4.8-10.8) K/ul RBC 4.46 (4.20-5.40) M/uL Hgb 12.9 (12.0-16.0) g/dl Hct 40.1 (37.0-47.0) % MCV 89.9 (80.0-100.0) fL MCH 28.9 (25.0-34.0) pg MCHC 32.2 (32.0-36.0) g/dL RDW Std Deviation 45.2 (36.4-46.3) fL RDW Coeff of Barrett 13.8 (11.5-14.5) % Plt Count 375 (130-400) K/uL MPV 10.2 (9.4-12.4) fL Immature Gran % (Auto) 0.5 % Neut % (Auto) 71.6 % Lymph % (Auto) 18.9 % [place] % (Auto) 6.3 % Eos % (Auto) 1.9 % Baso % (Auto) 0.8 % Neut # (Auto) 6.13 (1.40-6.50) K/uL Lymph # (Auto) 1.62 (1.20-3.40) K/uL [place] # (Auto) 0.54 (0.11-0.59) K/uL Eos # (Auto) 0.16 (0.00-0.50) K/uL Baso # (Auto) 0.07 (0.00-0.20) K/uL Immature Gran # (Auto) 0.04 (0.01-0.20) K/uL PT 10.2 (9.0-12.0) Seconds INR 0.9 (0.9-1.1) Sodium 137 (136-145) mmol/L Potassium 4.7 (3.5-5.1) mmol/L Chloride 99 (98-107) mmol/L Carbon Dioxide 28 (21-32) mmol/L Anion Gap 10 (3-11) BUN 28 H (6-23) mg/dl Creatinine 1.09 (0.6-1.2) mg/dl Est Cr Clr Drug Dosing 42.7 ml/min eGFR 53.98 BUN/Creatinine Ratio 25.7 H (10-20) Glucose 143 H (70-99(Fasting)) mg/dl Calcium 10.6 H (8.6-10.3) mg/dl Phosphorus 4.2 (2.5-4.9) mg/dl Magnesium 1.5 L (1.7-2.4) mg/dl Total Bilirubin 0.5 (0.2-1.0) mg/dl AST 33 (13-39) U/L ALT 29 (7-52) U/L Alkaline Phosphatase 619 H (34-104) U/L Troponin I High Sens 13.0 (0-14) pg/ml Total Protein 7.6 (6.0-8.3) gm/dl Albumin 4.0 (3.4-5.0) gm/dl Globulin 3.6 (2.5-4.0) gm/dl Albumin/Globulin Ratio 1.1 (0.9-2) Lipase 5 L (11-82) U/L TSH 3.231 (0.300-4.500) uIu/ml Administered Medications Insulin Aspart (Insulin Aspart Per Unit Charge) 0 units SC ACHS PETROS Stop: 02/10/24 23:44 Last Admin: 01/11/24 23:52 Dose: 3 units Documented By: YAMILETH Co-signed By: HRB Discontinued Medications Magnesium Sulfate/Dextrose (Magnesium Sulfate / D5w) 1 gm in 100 mls @ 100 mls/hr IV NOW STA Stop: 01/11/24 21:55 Last Infusion: 01/11/24 22:13 Dose: Infused Documented By: Admin: 01/11/24 21:12 Dose: 100 mls/hr Documented By: SHONDA Imaging Data Radiologist's Impression: Cervical Spine CT 01/11/24 20:54 Exam(s): CT C SPINE EXAM: CT Cervical Spine Without Intravenous Contrast CLINICAL HISTORY: Reason for exam: BLE weakness,ho cspine fx. TECHNIQUE: Axial computed tomography images of the cervical spine without intravenous contrast. CTDI is 38 mGy and DLP is 546 mGy-cm. Automated exposure control was utilized for the study. A dose lowering technique was utilized adhering to the principles of ALARA. COMPARISON: No relevant prior studies available. FINDINGS: The vertebral body heights are maintained. The craniocervical junction is intact. The atlanto-dens interval is maintained. Old type II dens fracture. Status-post posterior fusion at C1-C2. The dens remains offset by approximately 8 mm. There is no spondylolisthesis. Multilevel cervical spondylosis and degenerative disc disease. Straightening of the cervical lordosis. The unenhanced neck soft tissues are grossly unremarkable. The visualized lung apices are grossly clear. IMPRESSION: No acute fracture of the cervical spine. Old type II dens fracture. Status-post posterior fusion at C1-C2. The dens remains offset by approximately 8 mm. Electronically signed by: Jef Hdz MD 01/11/24 22:[address] 01/11/24 20:54 Exam(s): CT HEAD Without Contrast EXAM: CT Head Without Intravenous Contrast CLINICAL HISTORY: Reason for exam: BLE weakness,ho cspine fx. TECHNIQUE: Axial computed tomography images of the head/brain without intravenous contrast. CTDI is 38 mGy and DLP is 546 mGy-cm. Automated exposure control was utilized for the study. A dose lowering technique was utilized adhering to the principles of ALARA. COMPARISON: No relevant prior studies available. FINDINGS: No acute intracranial hemorrhage. No midline shift or mass effect. The territorial quiroga-white matter differentiation is maintained throughout. Age-related cerebral volume loss. Periventricular and subcortical white matter hypoattenuation, consistent with chronic microangiopathy. The visualized orbits appear grossly unremarkable. The calvarium is intact. The visualized paranasal sinuses and mastoid air cells are grossly clear. IMPRESSION: No acute intracranial hemorrhage, midline shift, or mass effect. Electronically signed by: Jef Hdz MD 01/11/24 22:39 PM Discharge Plan Visit Data Chief Complaint: Weakness Stated Complaint: Unable to Ambulate ED Provider: Ronnie Garcia Discharge Problem: Weakness, Ambulatory dysfunction, C2 cervical fracture, C1 cervical fracture, S/P cervical spinal fusion Patient Disposition: Admitted As Inpatient Discharge Problem: C2 cervical fracture Qualifiers: Encounter type: subsequent encounter Fracture type: closed Fracture morphology: type II dens Fracture alignment: posteriorly displaced C1 cervical fracture Qualifiers: Encounter type: subsequent encounter Fracture type: closed Fracture morphology: unspecified fracture morphology
[2024-01-11] MEDS: MAGNESIUM SULFATE / D5W 1 GM/100 ML BAG IV STA (21:12)
--- NOTE | 2024-01-11 21:23 | History & Physical Report ---
Date of Service January 11, 2024 Assessment & Plan (1) Ambulatory dysfunction: Plan: - in the setting of recent spinal surgery - no new acute findings on exam, not acute worsening, not back to baseline from prior and unable to complete ADLs at home - head CT on admission without acute pathology - Consult PT/OT -> will likely require further rehab/placement at d/c - unsafe to d/c home at present (2) C2 cervical fracture: Plan: - Plan as per above - no acute changes in pain/weakness->no indication for repeat imagining at this time (3) Type 2 diabetes mellitus, uncontrolled: Plan: -Last hemoglobin a1c= 9.6 06/16-> repeat qAM - continue home Lantus dosing 26 units daily- recently adjusted at [facility], SSI while inpatient - hold metformin , Januvia (4) Hypomagnesemia: Plan: - mg= 1.5; repleted - repeat qAM (5) Elevated alkaline phosphatase level: Plan: - Alk phos= 619, downtrending from 1020 09/16 - no abdominal symptoms at present - ggt elevated on prior labs with history of biliary stent- replaced 08/2023 Plan Chronic Stable Medical Conditions- HLD- continue statin Depression- continue venlafaxine, BuSpar, Wellbutrin Diet: DM2 Code: Full Dispo: Med Surg VTE Prophylaxis: Lovenox History of Present Illness Primary Care Provider: Yessi Gray MD 73 year old female with a past medical history of DM2, HTN, HLD, depression presenting with concern for weakness after d/c from [facility] this afternoon. She has a C2 fracture requiring surgery in 09/2023, in October she had a fall which resulted in pedicle screw that had entered the spinal canal. This required repeat surgery in [place]. She was discharged to [facility] and then to [facility]. Limited improvement at [facility] and was sent back to [facility]. Today she was discharged from [facility] to home. Lives alone with mother, who is 92. No other family in the area. At home pt was not able to ambulatory and had concerns for falling, which prompted mother to call EMS. Denies fall. Denie new weakness/pain. Allergies Allergy/AdvReac Type Severity Reaction Status Date / Time baclofen AdvReac Intermediate Hallucinati Verified 12/21/23 14:08 ng cyclobenzaprine AdvReac Intermediate Hallucinati Verified 12/21/23 14:08 ng Home Medications Medication Instructions Recorded Confirmed Type cholecalciferol (vitamin D3) 50 2,000 units PO DAILY 11/08/18 12/21/23 History mcg (2,000 unit) capsule cyanocobalamin (vitamin B-12) 1,000 mcg PO DAILY 11/08/18 12/21/23 History 1,000 mcg tablet aspirin 81 mg tablet,delayed 81 mg PO DAILY #90 tabs 06/23/19 12/21/23 Rx release venlafaxine 150 mg 150 mg PO BID 01/18/22 12/21/23 History capsule,extended release 24 hr buspirone 15 mg tablet 30 mg PO BID 03/28/22 12/21/23 History metformin 1,000 mg tablet 1,000 mg PO BID #180 tabs 10/24/22 12/21/23 Rx rosuvastatin 20 mg tablet 20 mg PO QAM #90 tabs 10/24/22 12/21/23 Rx esomeprazole magnesium 40 mg 40 mg PO DAILY #90 caps 01/16/23 12/21/23 Rx capsule,delayed release (Nexium) bupropion HCl 150 mg tablet,12 hr 300 mg PO DAILY 02/23/23 12/21/23 History sustained-release amoxicillin 500 mg capsule 2,000 mg PO DIRECTED PRN 1 HR 03/09/23 12/21/23 History PRIOR TO DENTAL PROCEDURES pen needle, diabetic 32 gauge x #400 ea 03/15/23 12/21/23 Rx 5/32" (BD Ultra-Fine Marleny Pen Needle) blood sugar diagnostic (OneTouch #600 ea 05/10/23 12/21/23 Rx Ultra Test strips) insulin lispro 100 unit/mL See Rx Instructions subcut TID 08/02/23 12/21/23 History subcutaneous pen (Humalog KwikPen (U-100) Insulin) blood-glucose meter #1 ea 08/10/23 12/21/23 Rx albuterol sulfate 90 mcg/actuation 2 puff inhalation Q4H PRN 10/10/23 12/21/23 History aerosol inhaler Shortness Of Breath Or Wheezing insulin glargine 100 unit/mL (3 35 unit subcut QPM 10/10/23 12/21/23 History mL) subcutaneous pen (Lantus Solostar U-100 Insulin) acetaminophen 500 mg tablet 1,000 mg (2 x 500 mg) PO TID PRN 11/30/23 12/21/23 Rx pain #90 tabs amoxicillin 500 mg-potassium 1 tab PO BID 5 days #10 tabs 12/13/23 12/21/23 Rx clavulanate 125 mg tablet (Augmentin) gabapentin 300 mg capsule 300 mg PO TID 12/21/23 12/21/23 History Past Med/Surg History Problem List (Updated 01/12/24 @ 04:05 by Ronnie Garcia MD) S/P cervical spinal fusion (Acute) Elevated alkaline phosphatase level Hypomagnesemia Ambulatory dysfunction (Acute) Weakness (Acute) C2 cervical fracture (Acute ~10/10/23) Nondisplaced fractures through the right and left posterior arches of C1 and C2 fracture/displaced type II odontoid fracture C1 cervical fracture (Acute ~10/10/23) Nondisplaced fractures through the right and left posterior arches of C1 and C2 fracture/displaced type II odontoid fracture Bile duct injury Cholecystitis Fall (Acute) Back pain (Acute) Chronic kidney disease Eustachian tube dysfunction Mixed hearing loss, bilateral Acquired deviated nasal septum Balance disorder Sacral back pain Type 2 diabetes mellitus, uncontrolled (Chronic) Diabetic peripheral neuropathy associated with type 2 diabetes mellitus (Chronic) Anxiety Pancreatic cyst (Chronic) [facility] Chronic osteoarthritis (Chronic) Greater trochanteric bursitis Chronic thoracic back pain Lumbar facet joint pain Urinary incontinence (Chronic) Lumbar radiculopathy (Chronic) Gastroparesis (Chronic) Dysesthesia (Chronic) Vitamin D deficiency (Chronic) Medical History Anterolisthesis of lumbar spine Elevated troponin Fall C6 cervical fracture Acute anterior epistaxis Perianal abscess Vitiligo Venous insufficiency (chronic) (peripheral) NSTEMI (non-ST elevated myocardial infarction) Mixed conductive and sensorineural hearing loss of both ears Frequent falls Cardiomyopathy Dyslipidemia Hypertension Hiatal hernia Small GERD (gastroesophageal reflux disease) Depression Surgical History Hx of cardiac cath Mar 2018. Normal coronary arteries. History of total knee replacement RT TKA APPROX 15 YEARS AGO L TKA 01/23/2018 Family History Mother Hypertension Cancer Melanoma Father Breast cancer Cancer Melanoma Family/Other Breast cancer Unknown Osteoarthritis Denies family history of Ovarian cancer Prostate cancer Heart disease Colorectal cancer Lung disease Stroke Asthma Social History Smoking Status: Never smoker Second Hand Exposure: No; Do You Dip or Chew Tobacco: No; Hx Alcohol Use: No Hx Substance Use: No Preferred Language: Swazi Communication Ability: Effective Communication Ability Comment: D/t facial edema from fall pt cannot see well enough to sign documents now Visual Impairment: No Limitations Hearing Ability: Normal [employer] Required: No Beliefs That Will Affect Care: None marital status: Current Living Situation: Parent Current Living Situation Comment: Home with mother current occupational status: disabled Other Information That Helps Us Care for You: No Feels Safe at Home: Yes Safety Concerns: Feels Safe At This Time Childhood Exposure to Second-Hand Smoke: No Diet: regular caffeine: Yes Dental Care, Regularly: Yes Physical Activity Frequency: 3-4 Times per Week Physical Activity Frequency Comment: walk Seatbelt Use: always Sunscreen Use: No (not in the sun) Do you think of yourself as: straight/heterosexual Assistive Devices: Walker Review of Systems Review of Systems: As per above Physical Exam Physical Exam: Constitutional: well-appearing, no acute distress HEENT: NCAT, no conjunctival injection CV: regular rhythm, no murmur appreciated, extremities well-perfused, no LE edema Resp: CTABL, no wheezes/rales/rhonchi appreciated, no increased work of breathing MSK: no gross deformities appreciated Skin: warm, dry, no rash appreciated Neuro: alert, oriented, no focal neurologic deficit appreciated Results & Data Results & Data Vital Signs (Past 12 Hours) Vital Signs Temp Pulse Resp BP Pulse Ox O2 Del Method 01/11/24 21:00 96 H 20 120/66 01/11/24 20:30 96 H 13 96 01/11/24 20:30 95 H 20 116/74 01/11/24 19:34 96 Room Air 01/11/24 19:30 96 H 16 116/72 01/11/24 19:06 99 H 01/11/24 19:04 Room Air 01/11/24 19:02 97 H 15 106/66 01/11/24 18:57 36.6 C 98 H 16 106/66 97 Room Air Supervising Physician Co-Signing Physician Notes Attending addendum: I have physically seen this patient, have supervised the medical residents activities, and agree with the H&P unless as otherwise noted. Assessment and Plan: Ambulatory dysfunction- Generalized weakness aggravated by recovering from recent spinal surgery for C2 cervical fracture Family thought they would be able to take care of patient after discharge from [facility], however, she is brought back to the ED for assessment for further inpatient rehab Unable to complete ADLs at home CT head without contrast negative Consult physical therapy/Occupational Therapy Patient will need inpatient rehab Diabetes mellitus type 2- Last A1c 9.6 on 06/16 Hold metformin and Januvia Continue Lantus 26 units subcu daily Placed on Accu-Cheks with NovoLog SSI Hypomagnesemia- Magnesium 1.5 on admission Replace IV as noted, recheck laboratories in a.m. Resident Activity Tracking Resident Involvement: Resident Care Provided Care Provided: Adult Hospital Medicine (3) Type 2 diabetes mellitus, uncontrolled Coma presence: without coma Glycemic state: with hypoglycemia Qualified Code(s): E11.649 - Type 2 diabetes mellitus with hypoglycemia without coma
[2024-01-11] MEDS ORDERED: MELATONIN 3 MG TAB PO PRN (21:48)
--- NOTE | 2024-01-11 22:40 | CT Scan Report ---
Exam(s): CT HEAD Without Contrast EXAM: CT Head Without Intravenous Contrast CLINICAL HISTORY: Reason for exam: BLE weakness,ho cspine fx. TECHNIQUE: Axial computed tomography images of the head/brain without intravenous contrast. CTDI is 38 mGy and DLP is 546 mGy-cm. Automated exposure control was utilized for the study. A dose lowering technique was utilized adhering to the principles of ALARA. COMPARISON: No relevant prior studies available. FINDINGS: No acute intracranial hemorrhage. No midline shift or mass effect. The territorial quiroga-white matter differentiation is maintained throughout. Age-related cerebral volume loss. Periventricular and subcortical white matter hypoattenuation, consistent with chronic microangiopathy. The visualized orbits appear grossly unremarkable. The calvarium is intact. The visualized paranasal sinuses and mastoid air cells are grossly clear. IMPRESSION: No acute intracranial hemorrhage, midline shift, or mass effect. Electronically signed by: Jef Hdz MD 01/11/24 22:39 PM
--- NOTE | 2024-01-11 22:42 | CT Scan Report ---
Exam(s): CT C SPINE EXAM: CT Cervical Spine Without Intravenous Contrast CLINICAL HISTORY: Reason for exam: BLE weakness,ho cspine fx. TECHNIQUE: Axial computed tomography images of the cervical spine without intravenous contrast. CTDI is 38 mGy and DLP is 546 mGy-cm. Automated exposure control was utilized for the study. A dose lowering technique was utilized adhering to the principles of ALARA. COMPARISON: No relevant prior studies available. FINDINGS: The vertebral body heights are maintained. The craniocervical junction is intact. The atlanto-dens interval is maintained. Old type II dens fracture. Status-post posterior fusion at C1-C2. The dens remains offset by approximately 8 mm. There is no spondylolisthesis. Multilevel cervical spondylosis and degenerative disc disease. Straightening of the cervical lordosis. The unenhanced neck soft tissues are grossly unremarkable. The visualized lung apices are grossly clear. IMPRESSION: No acute fracture of the cervical spine. Old type II dens fracture. Status-post posterior fusion at C1-C2. The dens remains offset by approximately 8 mm. Electronically signed by: Jef Hdz MD 01/11/24 22:41 PM
[2024-01-11] MEDS ORDERED: GLUCOSE 10 TAB/TUBE PO PRN (23:18)
[2024-01-11] MEDS ORDERED: DEXTROSE 50% 50 ML SYRINGE IV PRN (23:18)
[2024-01-11] MEDS ORDERED: GLUCAGON FOR INJ 1 MG VIAL SQ PRN (23:18)
[2024-01-11] MEDS ORDERED: GLUCOSE 40% GEL 15 GM TUBE PO PRN (23:18)
[2024-01-11] MEDS: INSULIN ASPART PER UNIT CHARGE SC SCH (23:52)
[2024-01-12 06:38] LABS: BUN Creatinine Ratio 26.4 (10-20); Calcium 9.7 mg/dl (8.6-10.3); Creatinine Clr Calc Pharmacy 51.1 ml/min; Magnesium 1.8 mg/dl (1.7-2.4)
--- OUTSIDE RECORDS SUMMARY | 2024-01-12 07:15 | External Medical Summary ---
Author Name Unknown Address Unknown Organization [id number][facility] [place] [address] Laboratory Report Ordering Provider Test Date Status HY,DEPAMPHILIS 12/31/2023 05:56:25 Final Observation Date Value Abnormality Reference (Units ) Status BUN 12/31/2023 05:56:25 20 6-20 (mg/dL) Final Creatinine 12/31/2023 05:56:25 1.0 0.5-1.0 (mg/dL) Final Glomerular filtration rate/1.73 sq M.predicted [Volume Rate/Area] in Serum, Plasma or Blood by Creatinine-based formula (CKD-EPI) 12/31/2023 05:56:25 58 Below low normal >=60 (mL/min) Final eGFR is calculated based on the CKD-EPI 2020 equation. Sodium 12/31/2023 05:56:25 138 135-146 (m mol/L) Final Potassium 12/31/2023 05:56:25 4.5 3.5-5.1 (m mol/L) Final Cl 12/31/2023 05:56:25 98 98-107 (mm ol/L) Final CO2 12/31/2023 05:56:25 28 22-32 (mmo l/L) Final Anion gap 12/31/2023 05:56:25 12 7-15 (mmol /L) Final Glucose 12/31/2023 05:56:25 201 Above high normal 70 -120 (mg/dL) Final Calcium 12/31/2023 05:56:25 10.4 Above high normal 8. 4-10.2 (mg/dL) Final Performing Location [facility] [place] [address]
--- OUTSIDE RECORDS SUMMARY | 2024-01-12 07:15 | External Medical Summary ---
Author Name Unknown Address Unknown Organization [id number][facility] [place] [address] Laboratory Report Ordering Provider Test Date Status HY,DEPAMPHILIS 01/07/2024 05:47:31 Final Observation Date Value Abnormality Reference (Units ) Status WBC, Total 01/07/2024 05:47:31 8.46 4.00-10.8 0 (K/uL) Final RBC 01/07/2024 05:47:31 4.21 3.85-5.15 (M/uL) Final Hemoglobin 01/07/2024 05:47:31 12.4 12.0-15.3 (g/dL) Final HCT 01/07/2024 05:47:31 38.7 36.0-45.2 (%) Final MCV 01/07/2024 05:47:31 91.9 81.5-97.5 (fL) Final MCH 01/07/2024 05:47:31 29.5 27.0-34.0 (pg) Final MCHC 01/07/2024 05:47:31 32.0 32.0-36.0 (g/dL) Final RDW 01/07/2024 05:47:31 14.0 11.5-15.5 (%) Final Platelets 01/07/2024 05:47:31 266 140-400 (K /uL) Final MPV 01/07/2024 05:47:31 10.6 6.6-11.1 ( fL) Final Performing Location [facility] [place] [address]
--- OUTSIDE RECORDS SUMMARY | 2024-01-12 07:15 | External Medical Summary ---
Author Name Unknown Address Unknown Organization [id number]:[facility] [place] [address] Laboratory Report Ordering Provider Test Date Status HY,DEPAMPHILIS 12/31/2023 05:56:25 Final Observation Date Value Abnormality Reference (Units ) Status WBC, Total 12/31/2023 05:56:25 8.91 4.00-10.8 0 (K/uL) Final RBC 12/31/2023 05:56:25 4.22 3.85-5.15 (M/uL) Final Hemoglobin 12/31/2023 05:56:25 12.4 12.0-15.3 (g/dL) Final HCT 12/31/2023 05:56:25 38.3 36.0-45.2 (%) Final MCV 12/31/2023 05:56:25 90.8 81.5-97.5 (fL) Final MCH 12/31/2023 05:56:25 29.4 27.0-34.0 (pg) Final MCHC 12/31/2023 05:56:25 32.4 32.0-36.0 (g/dL) Final RDW 12/31/2023 05:56:25 13.4 11.5-15.5 (%) Final Platelets 12/31/2023 05:56:25 230 140-400 (K /uL) Final MPV 12/31/2023 05:56:25 10.3 6.6-11.1 ( fL) Final Performing Location [facility] [place] [address]
--- OUTSIDE RECORDS SUMMARY | 2024-01-12 07:15 | External Medical Summary ---
Author Name Unknown Address Unknown Organization [id number]:[facility] [place] [address] Laboratory Report Ordering Provider Test Date Status HY,DEPAMPHILIS 01/07/2024 05:47:31 Final Observation Date Value Abnormality Reference (Units ) Status BUN 01/07/2024 05:47:31 18 6-20 (mg/dL) Final Creatinine 01/07/2024 05:47:31 1.1 Above high normal 0.5-1.0 (mg/dL) Final Glomerular filtration rate/1.73 sq M.predicted [Volume Rate/Area] in Serum, Plasma or Blood by Creatinine-based formula (CKD-EPI) 01/07/2024 05:47:31 55 Below low normal >=60 (mL/min) Final eGFR is calculated based on the CKD-EPI 2020 equation. Sodium 01/07/2024 05:47:31 136 135-146 (m mol/L) Final Potassium 01/07/2024 05:47:31 4.5 3.5-5.1 (m mol/L) Final Cl 01/07/2024 05:47:31 96 Below low normal 98- 107 (mmol/L) Final CO2 01/07/2024 05:47:31 26 22-32 (mmo l/L) Final Anion gap 01/07/2024 05:47:31 14 7-15 (mmol /L) Final Glucose 01/07/2024 05:47:31 182 Above high normal 70 -120 (mg/dL) Final Calcium 01/07/2024 05:47:31 9.9 8.4-10.2 ( mg/dL) Final Performing Location [facility] [place] [address]
--- OUTSIDE RECORDS SUMMARY | 2024-01-12 07:16 | External Medical Summary | Continuity of Care Document ---
Author Name Unknown Organization [facility] [address] Address [address] [facility] [address] [place] [phone] Care Team Providers Care Excel Analyst Name Role Phone Yessi Gray Primary Care Physician [phone] [id number] Date(s): 12/25/23 - 12/25/23 [facility] [address] [facility] Neurosurgery [address], [address] [place] [address] [phone] Discharge Disposition: Home or Self Care Attending Physician: MD Galindo Haejoe Referring Physician: MD Gray Jenna Lynn Allergies, Adverse Reactions, Alerts Substance Criticality Severity Reaction Reaction Severity Status cyclobenzaprine hallucinations Active baclofen hallucinations Activ e Assessment and Plan Extracted from: Title:Clinical Document Author:ANGELIQUE Sosa, Lynsey cervantes Date:12/25/23 NEUROSURGERY OUTPATIENT NOTE Name: PAUL PERSON Patient Number: [id number] : 1950 Date of Service: 12/25/2023 Chief Complaint: dens fracture, routine postoperative f/u HPI: last seen 11/28; s/p C1-2 fusion 10/12 with revision 11/05 due to hardware failure; continues to report left-sided posterior neck pain, stable; comes and goes; she states it is "hard to explain," and thinks Tylenol helps with it; has been compliant with cervical collar; denies current arm pain, numbness, or tingling; XR prior to visit Current Home Meds: (Last Updated 12/24 13:59) acetaminophen (Tylenol 500 mg oral tablet) 1,000 mg PO q8h albuterol (albuterol CFC free 90 mcg/inh MDI) 1 puff inhaled qid PRN: as needed for wheezing amoxicillin (amoxicillin 500 mg oral tablet) PRN: see order comments 4 tabs (2000mg) PRN - take 1h prior to dental procedure buPROPion (Wellbutrin XL 300 mg/24 hours oral tablet, extended release) 300 mg PO Daily busPIRone (BuSpar Dividose 30 mg oral tablet) 30 mg PO bid cholecalciferol (Vitamin D3) 2,000 Int_Unit PO Daily cyanocobalamin (Vitamin B12 1000 mcg oral tablet) 1,000 mcg PO Daily esomeprazole (NexIUM 40 mg oral delayed release capsule) 40 mg PO Daily insulin glargine (Lantus Solostar Pen 100 units/mL subcutaneous solution) INJECT 40 UNITS SUBCUTANEOUSLY ONCE DAILY IN THE EVENING insulin lispro (HumaLOG KwikPen 100 units/mL subcutaneous solution) use as directed by PCP15u before lunch, 15u before dinner, SSI q4h 16 units subq at breakfast and lunch. 25 units subq at supper - G Sechrist 03/11 11:45 metformin (metFORMIN 1000 mg oral tablet) 1,000 mg PO bid rosuvastatin (rosuvastatin 20 mg oral tablet) TAKE 1 TABLET BY MOUTH ONCE DAILY IN THE MORNING venlafaxine (venlafaxine 150 mg oral capsule, extended release) 150 mg PO bid Allergies and Sensitivities: cyclobenzaprine(hallucinations) baclofen(hallucinations) Past Medical History: Problems: Lumbar radiculopathy Gastroparesis Urinary incontinence Chronic thoracic back pain CKD (chronic kidney disease) Cholecystitis Pancreatic cyst Peripheral neuropathy Balance disorder Eustachian tube dysfunction Hiatal hernia Cardiomyopathy NSTEMI (non-ST elevated myocardial infarction) Anxiety Weight disorder Skin lesion Family history of melanoma Depression Elevated cholesterol Reflux DM (diabetes mellitus) OBJECTIVE Vitals: Last Updated 12/25/23 14:00 Date Temp BP Location Pulse RR SpO2 Pain 12/25/23 6 12/25/23 110/70 Right Arm 92 11/29/23 117/69 101 Vital Signs are the last 3 documented. No Orthostatic Data Available Height and Weight: Last Updated 11/29/23 09:08 Date BMI Wt(kg) Wt(lb) Method Ht(cm) (ft-in) Method 11/29/23 26.01 66.6 147 Standing Scale 160.02 5-3 Patient stated 11/06/23 27.15 69.5 153 Bed Scale 160 5-3 Patient stated 10/13/23 160.02 5-3 Heights and Weights are the last 3 documented. Physical Exam awake and alert, resting comfortably in wheelchair [place] collar in place; neck stiffness/limited ROM with removal posterior cervical incision CDI IMAGING XR Spine Cervical 2 or 3 Views - 12/25/23 C1-2 spinal fusion without evidence of hardware complication. Similar posterior dens displacement. ASSESSMENT: dens fracture PLAN: d/c collar, repeat XR in 1 month @ [facility], if stable, will plan to refer for therapy, f/u 2 months with rXR Medications albuterol CFC free 90 mcg/inh MDI Start: 10/11/23 4:09:00 AM EDT, 1 puff, inhaled, qid, PRN: as needed for wheezing Start Date: 10/11/23 Status: Ordered amoxicillin 500 mg oral tablet Start: 10/11/23 4:07:00 AM EDT, See Instructions, 4 tabs (2000mg) PRN - take 1h prior to dental procedure, PRN: see order comments Start Date: 10/11/23 Status: Ordered BuSpar Dividose 30 mg oral tablet Start: 10/11/23 4:10:00 AM EDT, 1 tab, PO, bid Start Date: 10/11/23 Status: Ordered HumaLOG KwikPen 100 units/mL subcutaneous solution Start: 03/11/14 11:43:00 AM EST, See Instructions, use as directed by PCP 15u before lunch, 15u before dinner, SSI q4h Start Date: 03/11/14 Status: Ordered Lantus Solostar Pen 100 units/mL subcutaneous solution INJECT 40 UNITS SUBCUTANEOUSLY ONCE DAILY IN THE EVENING Start Date: 11/06/23 Status: Ordered metFORMIN 1000 mg oral tablet Start: 03/11/14 11:43:00 AM EST, 1 tab, PO, bid Start Date: 03/11/14 Status: Ordered NexIUM 40 mg oral delayed release capsule Start: 03/11/14 11:43:00 AM EST, 1 cap, PO, Daily Start Date: 03/11/14 Status: Ordered rosuvastatin 20 mg oral tablet TAKE 1 TABLET BY MOUTH ONCE DAILY IN THE MORNING Start Date: 11/06/23 Status: Ordered Tylenol 500 mg oral tablet Start: 10/16/23 2:08:00 PM EDT, 2 tab, PO, q8h Start Date: 10/16/23 Status: Ordered venlafaxine 150 mg oral capsule, extended release Start: 03/11/14 11:43:00 AM EST, 1 cap, PO, bid Start Date: 03/11/14 Status: Ordered Vitamin B12 1000 mcg oral tablet Start: 10/11/23 4:09:00 AM EDT, 1 tab, PO, Daily Start Date: 10/11/23 Status: Ordered Vitamin D3 Start: 09/06/15 11:12:00 AM EDT, 2,000 Int_Unit =, PO, Daily Start Date: 09/06/15 Status: Ordered Wellbutrin XL 300 mg/24 hours oral tablet, extended release Start: 10/11/23 4:10:00 AM EDT, 1 tab, PO, Daily Start Date: 10/11/23 Status: Ordered Mental Status 12/25/23 Barriers to Learning one year None evide nt Mandatory Health Literacy Documentation Yes Health Literacy Communication Barriers N ever Primary Language Kinyarwanda Problem List Condition Confirmation Course Effective Dates Status H ealth Status Informant Anxiety Confirmed Active Cardiomyopathy Confirmed Active Cholecystitis Confirmed Active CKD (chronic kidney disease) Confirmed Active Chronic thoracic back pain Confirmed Active Pancreatic cyst Confirmed Active Depression Confirmed Active DM (diabetes mellitus) Confirmed Active Eustachian tube dysfunction Confirmed Active Family history of melanoma 1 Confirmed Active Gastroparesis Confirmed Active Hiatal hernia 2 Confirmed Active Elevated cholesterol Confirmed Active Balance disorder Confirmed Active Lumbar radiculopathy Confirmed Active NSTEMI (non-ST elevated myocardial infarction) Confirmed Active Peripheral neuropathy Confirmed Active Reflux Confirmed Active Skin lesion Confirmed Active Urinary incontinence Confirmed Active Weight disorder Confirmed Active 1father 2small Diagnosis Diagnosis Type Effective Dates Health Status Clini minal Service Informant Dens fracture 12/25/23 Non-Specified Procedures Procedure Date Related Diagnosis Body Site Status Upper GI endoscopy 2016 Comple abigail Shave biopsy and cauterizati on of skin 1 03/11/14 Completed Arthroscopy Completed Cardiac catheterization 2 Completed Knee replacement Complete d 1left medial distal villalba [address], normal vessels Results Radiology Reports * Exam Date Time Procedure Performing Provider Status 12/25/23 1:39 PM XR Spine Cervical 2 or 3 Views Virginia Blanc; Final Notes: (XR Spine Cervical 2 or 3 Views) Reason For Exam: s/p fusion XR Spine Cervical 2 or 3 Views EXAMINATION: XR Spine Cervical 2 or 3 Views CLINICAL HISTORY: S12.110A: Anterior displaced Type II dens fracture, initial; S12.110A: Anterior displaced Type II dens fracture, initial; S/P fusion COMPARISON: Cervical spine radiograph dated 11/06/2023. CT of the cervical spine dated 11/29/2023. FINDINGS: 2 views. Status post C1-2 posterior spinal fusion. No significant interval change in approximately 10 mm of posterior dens displacement. No hardware complication. Vertebral body heights are preserved. Moderate diffuse degenerative disc change and facet arthropathy. IMPRESSION: C1-2 spinal fusion without evidence of hardware complication. Similar posterior dens displacement. Workstation ID: [id number] Final Dictated by:MD Walker Eric A Dictated DT/TM:12/25/2023 1:56 Signed by:MD Walker Eric A Signed (Electronic Signature):12/25/2023 1:55 p Vital Signs Most recent to oldest [Reference Range]: 1 Heart Rate 92 bpm (12/25/23 1:59 PM) Blood Pressure 110/70mmHg (12/25/23 1:59 PM) BP Location # 1 Right Arm (12/25/23 1:59 PM) Social History Social History Type Response Smoking Status Never smoked cigaret rosaura Sex Female Sex Representation Female (finding) Implantable Device List Procedure Provider Procedure Date Device Type Site Unknown Unknown 11/06/23 Unknown Unknown Device Identifier Serial Number Lot or Batch Number Manufacturing Date Expiration Date Distinct Identification Code MRI Safety Implantable Status Assigning Authority Unknown Unknown [id number] Unknown 10/23/25 Unknown Unknown Active Unk nown Unknown Unknown n/a Unknown 06/25/26 Unknown Unknown Active Unkno wn Procedure Provider Procedure Date Device Type Site Unknown Unknown 10/13/23 Unknown Unknown Device Identifier Serial Number Lot or Batch Number Manufacturing Date Expiration Date Distinct Identification Code MRI Safety Implantable Status Assigning Authority Unknown Unknown na Unknown Unknown Unknown Unknown Active Unkn own Unknown Unknown na Unknown Unknown Unknown Unknown Active Unkn own Unknown Unknown na Unknown Unknown Unknown Unknown Active Unkn own Unknown Unknown na Unknown Unknown Unknown Unknown Active Unkn own Unknown Unknown [id number] Unknown 09/22/25 Unknown Unknown Active Unk nown Outpatient Note * ANGELIQUE Sosa Ashley: PERFORM Event Display: .Outpt Note Authored Date: [id number] NEUROSURGERY OUTPATIENT NOTE Name: PAUL PERSON Patient Number: [id number] : 1950 Date of Service: 12/25/2023 Chief Complaint: dens fracture, routine postoperative f/u HPI: last seen 11/28; s/p C1-2 fusion 10/12 with revision 11/05 due to hardware failure; continues to report left-sided posterior neck pain, stable; comes and goes; she states it is "hard to explain," and thinks Tylenol helps with it; has been compliant with cervical collar; denies current arm pain, numbness, or tingling; XR prior to visit Current Home Meds: (Last Updated 12/24 13:59) acetaminophen (Tylenol 500 mg oral tablet) 1,000 mg PO q8h albuterol (albuterol CFC free 90 mcg/inh MDI) 1 puff inhaled qid PRN: as needed for wheezing amoxicillin (amoxicillin 500 mg oral tablet) PRN: see order comments 4 tabs (2000mg) PRN - take 1h prior to dental procedure buPROPion (Wellbutrin XL 300 mg/24 hours oral tablet, extended release) 300 mg PO Daily busPIRone (BuSpar Dividose 30 mg oral tablet) 30 mg PO bid cholecalciferol (Vitamin D3) 2,000 Int_Unit PO Daily cyanocobalamin (Vitamin B12 1000 mcg oral tablet) 1,000 mcg PO Daily esomeprazole (NexIUM 40 mg oral delayed release capsule) 40 mg PO Daily insulin glargine (Lantus Solostar Pen 100 units/mL subcutaneous solution) INJECT 40 UNITS SUBCUTANEOUSLY ONCE DAILY IN THE EVENING insulin lispro (HumaLOG KwikPen 100 units/mL subcutaneous solution) use as directed by PCP15u before lunch, 15u before dinner, SSI q4h 16 units subq at breakfast and lunch. 25 units subq at supper - G Sechrist 03/11 11:45 metformin (metFORMIN 1000 mg oral tablet) 1,000 mg PO bid rosuvastatin (rosuvastatin 20 mg oral tablet) TAKE 1 TABLET BY MOUTH ONCE DAILY IN THE MORNING venlafaxine (venlafaxine 150 mg oral capsule, extended release) 150 mg PO bid Allergies and Sensitivities: cyclobenzaprine(hallucinations) baclofen(hallucinations) Past Medical History: Problems: Lumbar radiculopathy Gastroparesis Urinary incontinence Chronic thoracic back pain CKD (chronic kidney disease) Cholecystitis Pancreatic cyst Peripheral neuropathy Balance disorder Eustachian tube dysfunction Hiatal hernia Cardiomyopathy NSTEMI (non-ST elevated myocardial infarction) Anxiety Weight disorder Skin lesion Family history of melanoma Depression Elevated cholesterol Reflux DM (diabetes mellitus) OBJECTIVE Vitals: Last Updated 12/25/23 14:00 Date Temp BP Location Pulse RR SpO2 Pain 12/25/23 6 12/25/23 110/70 Right Arm 92 11/29/23 117/69 101 Vital Signs are the last 3 documented. No Orthostatic Data Available Height and Weight: Last Updated 11/29/23 09:08 Date BMI Wt(kg) Wt(lb) Method Ht(cm) (ft-in) Method 11/29/23 26.01 66.6 147 Standing Scale 160.02 5-3 Patient stated 11/06/23 27.15 69.5 153 Bed Scale 160 5-3 Patient stated 10/13/23 160.02 5-3 Heights and Weights are the last 3 documented. Physical Exam awake and alert, resting comfortably in wheelchair [place] collar in place; neck stiffness/limited ROM with removal posterior cervical incision CDI IMAGING XR Spine Cervical 2 or 3 Views - 12/25/23 C1-2 spinal fusion without evidence of hardware complication. Similar posterior dens displacement. ASSESSMENT: dens fracture PLAN: d/c collar, repeat XR in 1 month @ [facility], if stable, will plan to refer for therapy, f/u 2 months with rXR Electronic Signature on File Electronically Reviewed/Signed by: LUIS CARLOS Hall Author Signature Dt/Tm:12/25/2023 02:25 PM Department of Neurosurgery Electronically Reviewed/Signed by: Nayeli Galindo MD Cosigner Signature Dt/Tm: 12/25/2023 07:32 PM Department of Neurosurgery AC Patient Care team information Care Team Personnel Name: Emerita Briggs Amy E Position: Pharmacist Member Role: Pharmacy - Lifetime Address: [facility] [address] [place] [address] [place] Name: ANGELIQUE Sosa Ashley Position: Physician Treatment Coordinator - Neurosurgery Member Role: Lifetime Relationship Address: [address] [facility] [address] [place] [address] [place] Name: MD Gray Jenna Lynn Position: Referring Member Role: Primary Care Provider Address: [facility] [address], [address] [address] [place] Care Team Related Persons Name: JURGEN MULLEN
--- OUTSIDE RECORDS SUMMARY | 2024-01-12 07:16 | External Medical Summary | Summary of Care ---
Author Name Unknown Organization [facility] Address [address] [place] [address] Phone [phone] Care Team Providers Care Paint Sprayer Sandblaster Name Role Phone Yessi Gray MD Primary Care Provide r Reason for Visit * Reason Onset Date Comments Advice 09/26/2023 Encounter Details Date Type Department Care Team (Late st Contact Info) Description 09/26/2023 Telephone Gastroenterology, [place] [address] [place] [address] Kelsey Coronado MD [address] [place] [address] Advice Allergies Active Allergy Reactions Criticality Noted Date Comments Baclofen High 02/23/2023 Other Reaction(s): Hallucinating Cyclobenzaprine High 02/23/2023 Other Reaction(s): Hallucinating documented as of this encounter (statuses as of 12/26/2023) Medications Medication Sig Dispensed Refills Start Date End Date Status Aspirin 81 MG Tablet Take 1 Tablet by mouth in the morning. Active MetFORMIN (GLUCOPHAGE) 1000 MG Tablet Take 1 Tablet by mouth 2 times a day with morning and evening meals. Active fluticasone (FLONASE) 50 MCG/ACT nasal spray Administer 2 Sprays into nostril in the morning. Active insulin glargine (LANTUS SOLOSTAR) 100 UNIT/ML SOPN Inject 20 Units under the skin at bedtime. 06/09/2016 Active Insulin Lispro (HUMALOG KWIKPEN) 100 UNIT/ML SOPN Inject under the skin. 10 units before each meal plus sliding scale Active gabapentin (NEURONTIN) 300 MG Capsule Take 1 Capsule by mouth in the morning and 1 Capsule at noon and 1 Capsule before bedtime. 08/09/2016 Active ondansetron ODT (ZOFRAN) 8 MG TBDP Take 1 Tablet by mouth every 8 hours as needed. 08/24/2017 Active albuterol (PROAIR HFA) 108 (90 BASE) MCG/ACT inhaler Inhale by mouth. 01/19/2017 Act aleksandra Cholecalciferol (VITAMIN D3) 2000 units Capsule Take 1 Capsule by mouth in the morning. 07/09/2015 Active metoprolol succinate XL (TOPROL XL) 25 MG TB24 Take 1 Tablet by mouth in the morning. Active rosuvastatin (CRESTOR) 20 MG Tablet Take 1 Tablet by mouth in the morning. Active Normal Saline Flush 0.9 % Intravenous Solution Flush IR drain with sterile 10ml saline twice daily 10 mL 03/22/2023 Active oxyCODONE HCl 5 MG Oral Tablet (Oxy IR) Take 1 Tablet by mouth every 6 hours as needed for Other (severe incisional pain). 20 Tablet 03/22/2023 Active Additional Information Patient not taking.Reported on 09/20/2023 Venlafaxine HCl ER 75 MG Oral Capsule Extended Release 24 Hour (Effexor XR) Take 1 Capsule by mouth in the morning and 1 Capsule before bedtime. Follow up with your primary care provider for further management.. 1 Capsule 03/22/2023 Active Vitamin B-12 1000 MCG Oral Tablet (Cyanocobalamin) Take 1 Tablet by mouth in the morning. Follow up with your primary care provider for further management.. 1 Tablet 03/23/2023 Active Folic Acid 1 MG Oral Tablet Take 1 Tablet by mouth in the morning. Follow up with your primary care provider for further management.. 1 Tablet 03/23/2023 Active Additional Information Patient not taking.Reported on 09/17/2023 Miconazole Nitrate 2 % External Powder (Remedy) Apply topically to affected area 2 times a day. Apply to pannus 1 g 03/23/2023 Active Additional Information Patient not taking.Reported on 04/18/2023 Acetaminophen 500 MG Oral Tablet (Tylenol Extra Strength) Take 2 Tablets by mouth every 6 hours as needed. Active busPIRone HCl 10 MG Oral Tablet (Buspar) Take 1 Tablet by mouth in the morning and 1 Tablet at noon and 1 Tablet before bedtime. Active Pantoprazole Sodium 40 MG Oral Tablet Delayed Release (Protonix) Take 1 Tablet by mouth in the morning. Active Tamsulosin HCl 0.4 MG Oral Capsule (Flomax) Take 1 Capsule by mouth in the morning. 30 Capsule 6 04/18/2023 Active Additional Information Patient not taking.Reported on 09/17/2023 Esomeprazole Magnesium 10 MG Oral Packet (NexIUM) Take 30 mg by mouth daily before breakfast. Active documented as of this encounter (statuses as of 12/26/2023) Active Problems Problem Noted Date Diagnosed Date JORGE (generalized anxiety disorder) 03/10/2023 Type 2 diabetes mellitus, wi th long-term current use of insulin 03/10/2023 Hyperlipidemia 03/10/2023 GERD (gastroesophageal reflux disease) DEPRESSION RECURRENT( Moderate) 11/29/2005 Nausea with vomiting 12/08/2004 Gastroparesis 11/07/2004 Uterine leiomyoma 03/02/2003 documented as of this encounter (statuses as of 12/26/2023) Resolved Problems Problem Noted Date Diagnosed Date Resolved Date Elevated LFTs 03/11/2023 03/23/2023 Acute cholecystitis 03/10/2023 03/23/20 23 documented as of this encounter (statuses as of 12/26/2023) Social History Tobacco Use Types Packs/Day Years Used Date Smoking Tobacco: Never Smokeless Tobacco: Never Alcohol Use Standard Drinks/Week Comments Yes 0 (1 standard drink = 0.6 oz pur e alcohol) seldom Personal Safety Answer Date Recorded Do you feel unsafe or have concerns for your saf ety? No 03/09/2023 Do you have concerns for you r family's safety? (Household - for ages 0-17 years) Not on file 03/09/2023 Utilities Answer Date Recorded Do you have trouble paying y our heating, water, or electric bill? No 03/09/2023 Is your family able to pay t he heat, water, or electric bill? (Household - for ages 0-17 years) Not on file 03/09/2023 Does your family have access to good internet? (Household - for ages 0-17 years) Not on file 03/09/2023 Social Connections Answer Date Recorded How often do you feel lonely or isolated from those around you? (Adult - for ages 18 years and over) Not on file 09/11/2023 Transportation Needs Answer Date Record ed READ ONLY Do you have troubl e getting a ride to medical visits or work? Never True 03/09/2023 Does your family have a hard time getting a ride to doctors visits? (Household - for ages 0-17 years) Not on file 03/09/2023 Has lack of transportation k ept you from medical appointments, meetings, work, or from getting things needed for daily living? Check all that apply. (Adult - for ages 18 years and over) Not on file 03/09/2023 Do you (or your family) have trouble finding or paying for a ride (transportation)? (Household - for ages 0-17 years) Not on file 03/09/2023 Housing Stability Answer Date Recorded Do you currently live in a s helter or have no steady place to sleep at night? (Adult - for ages 18 years and over) Not on file 03/09/2023 READ ONLY Do you think you a re at risk of becoming homeless? No 03/09/2023 Does your family worry about paying for your home or becoming homeless? (Household - for ages 0-17 years) Not on file 1 05/10/2022 Are you homeless or worried that you might be in the future? (Adult - for ages 18 years and over) Not on file Are you (or your family) elena eless or worried that you might be in the future? (Household - for ages 0-17 years) Not on file Food Insecurity Answer Date Recorded Do you need food for this week? No 03/09/2023 Are you able to get enough f ood for your family? (Household - for ages 0-17 years) Not on file 03/09/2023 Does your family need food t his week? (Household - for ages 0-17 years) Not on file 03/09/2023 Do you always have enough fo od for your family? (Household - for ages 0-17 years) Not on file 03/09/2023 Sex and Gender Information Value Date Recorded Sex Assigned at Not on file Gender Identity Not on file Sexual Orientation Not on file Job Start Date Occupation Industry Not on file Not on file Not on file documented as of this encounter Functional Status Functional Status Response Date of Assess ment Are you deaf or do you have serious difficulty hearing? No 03/09/2023 Are you blind or do you have serious difficulty seeing, even when wearing glasses? No 03/09/2023 Do you have serious difficul ty walking or climbing stairs? (5 years old or older) Yes-bilateral knee replacements 03/09/2023 Do you have difficulty dress ing or bathing? (5 years old or older) No 03/09/2023 Because of a physical, menta l, or emotional condition, do you have difficulty doing errands alone such as visiting a doctor s office or shopping? (15 years old or older) No 03/09/2023 Cognitive Status Response Date of Assessm ent Because of a physical, menta l, or emotional condition, do you have serious difficulty concentrating, remembering, or making decisions? (5 years old or older) No 03/09/2023 documented as of this encounter Miscellaneous Notes * Telephone Encounter - Wang Puga OSA - 09/26/2023 3:04 PM EDT Patient called into apologize for calling to speak to Brandy so many times as she was not trying to bestressful. Patient would like a callback to say she is sorry before the day is over. documented in this encounter Plan of Treatment Upcoming Encounters Date Type Department Care Team (Latest Contact Info) Description 12/31/2023 10:28 AM EDT Hospital Encounter OR [facility], Operating Room, [facility] - 4th Floor [address] [place] [address] Hank Lopez MD [address] [place] [address] 12/31/2023 10:28 AM EDT - 12/31/2023 11:05 AM EDT Surgery OR [facility], Operating Room, [facility] - 4th Floor [address] [place] [address] Hank Lopez MD [address] [place] [address] ENDOSCOPIC RETROGRADE CHOLANGIOPANCREATOGRAPHY (ERCP) W/STENT REMOVAL AND EXCHANGE; INC DILATION, GUIDE WIRE AND SPHINCTEROTOMY Scheduled Procedures Name Priority Associated Diagnoses Date/Ti md ENDOSCOPIC RETROGRADE CHOLANGIOPANCREATOGRAPHY (ERCP) W/STENT REMOVAL AND EXCHANGE; INC DILATION, GUIDE WIRE AND SPHINCTEROTOMY Elevated liver enzymes 12/31/2023 10:28 AM EDT Health Maintenance Due Date Last Done Comments DXA Scan 1950 Lipid Panel 1951 Depression Monitoring 1963 Albumin/Creatinine Ratio 07/18/1969 Diabetic Eye Exam 07/18/1969 Diabetic Foot Exam 07/18/1969 Hepatitis C Screening 07/18/1969 DTap/Tdap Vaccines (1 - Tdap) 07/18/1970 Cologuard 07/18/1996 Colonoscopy 07/18/1996 Colorectal Cancer Screening 07/18/1996 Fecal Occult Blood Test 07/18/1996 Sigmoidoscopy 07/18/1996 Mammogram 05/02/2002 05/02/2001 COVID-19 Vaccine ( season) 2023 01/16/2023, 09/07/2022, 08/26/2021, Additional history exists Influenza Vaccine (FLU shot) (#1) 2023 01/20/2019, 12/20/2016, 01/05/2016, Additional history exists HbA1c 05/13/2024 11/11/2023, 03/10/2023 GFR 11/16/2024 11/17/2023, 10/24, 11/10/2023, Additional history exists Pneumococcal Vaccine: 65+ Years Completed 02/15/2017, 10/18/2016, 06/07/2010 Zoster Vaccines Completed 04/21/2019, 10/25, 04/23/2018, Additional history exists HPV (Gardasil) Vaccine Aged Out No lo nger eligible based on patient's age to complete this topic Hepatitis B Vaccine Aged Out No longe r eligible based on patient's age to complete this topic MENINGOCOCCAL (MENACTRA/MENVEO) Aged Out No longer eligible based on patient's age to complete this topic documented as of this encounter Medical Devices Implanted Type Area Regional Construction Manager Device Identifier Shelf Expiration Date Model / Serial / Lot Balloon Rx Hurcan 6-4x5.8 4592 - [id number] Implanted:Qty: 1 on 03/14/2023 by Juan Nguyen DO at [facility] [employer] : ENDOSCOPY [id number] 01/11/2025 [id number] / / [id number] Cath Drainage 12fr [id number] - [id number] Implanted:Qty: 1 on 03/21/2023 at [facility] : INTRV RAD 12/26/2025 [id number] / / [id number] Catheter 0.035in [id number] Balln Dilatation Rapid - [id number] Implanted:Qty: 1 on 04/26/2023 by Mark Morton MD at [facility] [employer] : ENDOSCOPY [id number] 10/22/2024 [id number] / / [id number] Stent Advanix Bili Db 7fr 12cm - [id number] Implanted:Qty: 1 on 09/20/2023 by Hank Lopez MD at OR [facility] [employer] : ENDOSCOPY [id number] 02/27/2025 [id number] / / [id number] Stent Advanix Bili Db 7fr 12cm - [id number] Implanted:Qty: 1 on 09/20/2023 by Hank Lopez MD at OR [facility] [employer] : ENDOSCOPY [id number] 10/08/2024 [id number] / / [id number] documented as of this encounter Advance Directives * Full Code (Latest Code Status on File) Date Activated Date Inactivated Comments 03/09/2023 11:44 PM 03/23/2023 6:37 PM This orde r reflects the patients wishes and were consensually agreed upon. Question Answer Comments Discussion of Advance Directives occurred with: Patient Care Teams Paint Sprayer Sandblaster Relationship Specialty Start Date End Date Yessi Gray MD [address] [place] [address] PCP - General Internal Medicine 03/09/23 documented as of this encounter
--- OUTSIDE RECORDS SUMMARY | 2024-01-12 07:16 | External Medical Summary | Summary of Care ---
Author Name Unknown Organization [facility] Address [address] [place] [address] Phone [phone] Care Team Providers Care Wood And Hardware Outfitter Name Role Phone Yessi Gray MD Primary Care Provide r Reason for Visit * Reason Onset Date Comments Appointment Canceled 12/28/2023 Encounter Details Date Type Department Care Team (Late st Contact Info) Description 12/28/2023 Telephone Gastroenterology, [address] [address] Hank Lopez MD [address] [facility] [place] [address] Appointment Canceled Allergies Active Allergy Reactions Criticality Noted Date Comments Baclofen High 02/23/2023 Other Reaction(s): Hallucinating Cyclobenzaprine High 02/23/2023 Other Reaction(s): Hallucinating documented as of this encounter (statuses as of 12/28/2023) Medications Medication Sig Dispensed Refills Start Date [...] as of this encounter (statuses as of 12/28/2023) Active Problems Problem Noted Date Diagnosed Date JORGE (generalized anxiety disorder) 03/10/2023 Type 2 diabetes mellitus, wi th long-term current use of insulin 03/10/2023 Hyperlipidemia 03/10/2023 GERD (gastroesophageal reflux disease) DEPRESSION RECURRENT( Moderate) 11/29/2005 Nausea with vomiting 12/08/2004 Gastroparesis 11/07/2004 Uterine leiomyoma 03/02/2003 documented as of this encounter (statuses as of 12/28/2023) Resolved Problems Problem Noted Date Diagnosed Date Resolved Date Elevated LFTs 03/11/2023 03/23/2023 Acute cholecystitis 03/10/2023 03/23/20 23 documented as of this encounter (statuses as of 12/28/2023) Social History Tobacco Use Types Packs/Day Years [...] encounter Miscellaneous Notes * Telephone Encounter - Nita Kirkland OSA - 12/28/2023 9:13 AM EDT Per pts sister, pt fell and broke her neck and is in rehab. ERCP stent removal was cx'd for 12/30. She will call back to khoi. documented in this encounter Plan of Treatment Health Maintenance Due Date Last Done Comments [...] this encounter Medical Devices Implanted Type Area Production Mechanic Tin Cans Device Identifier Shelf Expiration Date Model / Serial / Lot Balloon Rx Hurcan 6-4x5.8 4592 - [id number] Implanted:Qty: 1 on 03/14/2023 by Juan Nguyen DO [place] [facility] [place] [employer] [place] [id number] 01/11/2025 [id number] / / [id number] Cath Drainage 12fr [id number] - [id number] Implanted:Qty: 1 on 03/21/2023 at [facility] : INTRV RAD 12/26/2025 [id number] / / [id number] Catheter 0.035in [id number] Balln Dilatation Rapid - [id number] Implanted:Qty: 1 on 04/26/2023 by Mark Morton MD [place] [facility] [employer] [place] [id number] 10/22/2024 [id number] / / [id number] Stent Advanix Bili Db 7fr 12cm - [id number] Implanted:Qty: 1 on 09/20/2023 by Hank Lopez MD at OR [facility] [employer] : ENDOSCOPY [id number] 02/27/2025 [id number] / / [id number] Stent Advanix Bili Db 7fr 12cm - [id number] Implanted:Qty: 1 on 09/20/2023 by Hank Lopez MD at OR [facility] [employer] : ENDOSCOPY [id number] 10/08/2024 [id number] / / [id number] documented as of this encounter Advance Directives * Full Code (Latest Code Status on File) Date Activated Date Inactivated Comments 03/09/2023 11:44 PM 03/23/2023 6:37 PM This orde r reflects the patients wishes and were consensually agreed upon. Question Answer Comments Discussion of Advance Directives occurred with: Patient Care Teams Wood And Hardware Outfitter Relationship Specialty Start Date End Date Yessi Gray MD [address] [facility] [address] PCP - General Internal Medicine 03/09/23 documented as of this encounter
--- OUTSIDE RECORDS SUMMARY | 2024-01-12 07:16 | External Medical Summary | Continuity of Care Document ---
Author Name Unknown Organization [place] [address] [address] [address] [id number] Care Team Providers Care Study Coordinator Name Role Phone Yessi Gray Primary Care Physician [phone] [id number] Date(s): 12/25/23 - 12/25/23 [facility] [address] [facility] Neurosurgery [address], [address] [place] [address] [phone] Discharge Disposition: Home or Self Care Attending Physician: ANGELIQUE Sosa, Stefani Referring Physician: MD Isaac, Yessi Buitrago Allergies, Adverse Reactions, Alerts Substance Criticality Severity Reaction Reaction Severity Status cyclobenzaprine hallucinations Active baclofen hallucinations Activ e Medications albuterol CFC free 90 mcg/inh MDI [...] PO, Daily Start Date: 10/11/23 Status: Ordered Problem List Condition Confirmation Course Effective Dates [...] Active Weight disorder Confirmed Active 1father 2small Procedures Procedure Date Related Diagnosis Body Site Status Upper GI endoscopy 2016 Jesusita haeys Shave biopsy and cauterizati on of skin 1 03/11/14 Completed Arthroscopy Completed Cardiac catheterization 2 Completed Knee replacement Complete d 1left medial distal villalba [address], normal vessels Social History Social History Type Response Smoking Status Never smoked cigaret rosaura Sex Female Sex Representation Female (finding) Implantable Device List Procedure Provider Procedure Date Device Type Site Unknown Unknown 11/06/23 Unknown Unknown Device Identifier Serial Number Lot or Batch Number Manufacturing Date Expiration Date Distinct Identification Code MRI Safety Implantable Status Assigning Authority Unknown Unknown [id number] Unknown 10/23/25 Unknown Unknown Active Unk nown [...] Unknown Unknown Active Unkn own Unknown Unknown [id number] Unknown 09/22/25 Unknown Unknown Active Unk nown Patient Care team information Care Team Personnel Name: Emerita Briggs Amy E Position: Pharmacist Member Role: Pharmacy - Lifetime Address: [facility] [address] [place] [address] [place] Name: ANGELIQUE Sosa Ashley Position: Physician Canvas Marker - Neurosurgery Member Role: Lifetime Relationship Address: [address] [place] [address] [place] [address] [place] Name: MD Isaac, Yessi Buitrago Position: Referring Member Role: Primary Care Provider Address: [facility] Internal Medicine [address] [address] [place] Care Team Related Persons Name: JURGEN MULLEN
[2024-01-12 07:42] LABS: Estimated Average Glucose 214 mg/dl; Hemoglobin A1C 9.1 % (4.5-5.6)
--- NOTE | 2024-01-12 07:43 | XRay Report ---
XR chest 1V portable CLINICAL HISTORY: weakness TECHNIQUE: Single frontal radiograph of the chest was obtained. Comparison: Comparison is made to chest radiograph 11/05/2023 FINDINGS: No lines and tubes are seen. Calcified aortic knob is seen. The lungs are clear. No evidence of pleur al effusion or pneumothorax. IMPRESSION: No acute chest disease. ACT 112: Negative or not required by law. Electronically signed by: Omar Sloan M.D. 01/12/2024 7:41 AM
[2024-01-12] MEDS: ROSUVASTATIN CALCIUM 20 MG TAB PO SCH (08:01)
[2024-01-12] MEDS: PANTOprazole 40 MG TAB PO SCH (08:02)
[2024-01-12] MEDS: busPIRone 15 MG TAB PO SCH (08:02)
[2024-01-12] MEDS: CHOLECALCIFEROL 25 MCG (1000 UNITS) TAB PO SCH (08:02)
[2024-01-12] MEDS: VENLAFAXINE HCL XR 150 MG CAPXR PO SCH (08:02)
[2024-01-12] MEDS: buPROPion SR 150 MG TABCR PO SCH (08:03)
[2024-01-12] MEDS: CYANOCOBALAMIN (B-12) 500 MCG TABLET PO SCH (08:03)
[2024-01-12] MEDS: LANTUS PER UNIT CHARGE SQ SCH (08:28)
[2024-01-12] MEDS: ENOXAPARIN INJ 40 MG/0.4 ML SYR SQ SCH (12:47)
--- NOTE | 2024-01-12 14:22 | Hospitalist Progress Note ---
Date of Service January 12, 2024 Assessment & Plan (1) Ambulatory dysfunction: Plan: - in the setting of recent spinal surgery - no new acute findings on exam, not acute worsening, not back to baseline from prior and unable to complete ADLs at home - head CT on admission without acute pathology - Consult PT/OT -> will likely require further rehab/placement at d/c - unsafe to d/c home at present (2) C2 cervical fracture: Plan: - Plan as per above - no acute changes in pain/weakness (3) Type 2 diabetes mellitus, uncontrolled: Plan: -Last hemoglobin a1c= 9.6 06/16-> repeat qAM - continue home Lantus dosing 26 units daily- recently adjusted at [facility], [facility] while inpatient - hold metformin , Januvia (4) Hypomagnesemia: Plan: - mg= 1.5; repleted (5) Elevated alkaline phosphatase level: Plan: - Alk phos= 619, downtrending from 1020 09/16 - no abdominal symptoms at present - ggt elevated on prior labs with history of biliary stent- replaced 08/2023 Plan Chronic Stable Medical Conditions- HLD- continue statin Depression- continue venlafaxine, BuSpar, Wellbutrin Diet: DM2 Code: Full VTE Prophylaxis: Lovenox Admission and Anticipated Discharge Date Admission Date: January 11, 2024 Subjective Patient was seen and examined at 11:10 AM. She feels weak and tired. Denies any chest pain or shortness of breath. Review of Systems Review of Systems: All systems reviewed & are unremarkable except as noted in Subjective Physical Exam Physical Exam: General: Awake, conversant. Neck collar in place Heart: S1, S2/regular rate and rhythm, no murmur rubs or gallops Lungs: Clear to auscultation bilaterally. Normal effort Abdomen: Soft/nontender/nondistended. No hepatosplenomegaly Extremities: No clubbing/cyanosis. No edema Behavior: Appropriate, cooperative Results & Data Results & Data Vital Signs (Past 12 Hours) Vital Signs Temp Pulse Resp BP Pulse Ox O2 Del Method 01/12/24 14:17 36.6 C 88 17 99/64 L 97 Room Air 01/12/24 07:55 36.7 C 81 17 110/72 97 Room Air Laboratory Results Abnormal lab results 10/18/24 10/18/24 10/19/24 Range/Units 19:10 23:26 05:51 BUN 28 H 24 H (6-23) mg/dl BUN/Creatinine Ratio 25.7 H 26.4 H (10-20) Glucose 143 H 130 H (70-99(Fasting)) mg/dl POC Glucose 213 H (70-99) mg/dl Hemoglobin A1c 9.1 H (4.5-5.6) % Calcium 10.6 H (8.6-10.3) mg/dl Magnesium 1.5 L (1.7-2.4) mg/dl Alkaline Phosphatase 619 H (34-104) U/L Lipase 5 L (11-82) U/L 01/12/24 01/12/24 Range/Units 07:43 11:28 BUN (6-23) mg/dl BUN/Creatinine Ratio (10-20) Glucose (70-99(Fasting)) mg/dl POC Glucose 113 H 254 H (70-99) mg/dl Hemoglobin A1c (4.5-5.6) % Calcium (8.6-10.3) mg/dl Magnesium (1.7-2.4) mg/dl Alkaline Phosphatase (34-104) U/L Lipase (11-82) U/L Diagnostic Findings Chest X-Ray 01/11/24 19:28 XR chest 1V portable CLINICAL HISTORY: weakness TECHNIQUE: Single frontal radiograph of the chest was obtained. Comparison: Comparison is made to chest radiograph 11/05/2023 FINDINGS: No lines and tubes are seen. Calcified aortic knob is seen. The lungs are clear. No evidence of pleural effusion or pneumothorax. IMPRESSION: No acute chest disease. ACT 112: Negative or not required by law. Electronically signed by: Omar Sloan M.D. 01/12/2024 7:[address] 01/11/24 20:54 Exam(s): CT C SPINE EXAM: CT Cervical Spine Without Intravenous Contrast CLINICAL HISTORY: Reason for exam: BLE weakness,ho cspine fx. TECHNIQUE: Axial computed tomography images of the cervical spine without intravenous contrast. CTDI is 38 mGy and DLP is 546 mGy-cm. Automated exposure control was utilized for the study. A dose lowering technique was utilized adhering to the principles of ALARA. COMPARISON: No relevant prior studies available. FINDINGS: The vertebral body heights are maintained. The craniocervical junction is intact. The atlanto-dens interval is maintained. Old type II dens fracture. Status-post posterior fusion at C1-C2. The dens remains offset by approximately 8 mm. There is no spondylolisthesis. Multilevel cervical spondylosis and degenerative disc disease. Straightening of the cervical lordosis. The unenhanced neck soft tissues are grossly unremarkable. The visualized lung apices are grossly clear. IMPRESSION: No acute fracture of the cervical spine. Old type II dens fracture. Status-post posterior fusion at C1-C2. The dens remains offset by approximately 8 mm. Electronically signed by: Jef Hdz MD 01/11/24 22:[address] 01/11/24 20:54 Exam(s): CT HEAD Without Contrast EXAM: CT Head Without Intravenous Contrast CLINICAL HISTORY: Reason for exam: BLE weakness,ho cspine fx. TECHNIQUE: Axial computed tomography images of the head/brain without intravenous contrast. CTDI is 38 mGy and DLP is 546 mGy-cm. Automated exposure control was utilized for the study. A dose lowering technique was utilized adhering to the principles of ALARA. COMPARISON: No relevant prior studies available. FINDINGS: No acute intracranial hemorrhage. No midline shift or mass effect. The territorial quiroga-white matter differentiation is maintained throughout. Age-related cerebral volume loss. Periventricular and subcortical white matter hypoattenuation, consistent with chronic microangiopathy. The visualized orbits appear grossly unremarkable. The calvarium is intact. The visualized paranasal sinuses and mastoid air cells are grossly clear. IMPRESSION: No acute intracranial hemorrhage, midline shift, or mass effect. Electronically signed by: Jef Hdz MD 01/11/24 22:39 PM PG Care Time/CCT Total # of Minutes Spent Total Time Spent with Patient: Total time spent is greater than 50% in coordination of care (as documented) at patient's floor/unit and/or counseling patient: Coding Level of Care Code 94622 SUB INP/OBS CARE 2/35MIN Diagnoses Ambulatory dysfunction R26.2 C2 cervical fracture S12.100A Encounter type: subsequent encounter Fracture alignment: posteriorly displaced Fracture morphology: type II dens Fracture type: closed Uncontrolled type 2 diabetes mellitus with hypoglycemia without coma E11.649 Glycemic state: with hypoglycemia Coma presence: without coma Hypomagnesemia E83.42 Elevated alkaline phosphatase level R74.8 (2) C2 cervical fracture Encounter type: subsequent encounter Fracture alignment: posteriorly displaced Fracture morphology: type II dens Fracture type: closed (3) Type 2 diabetes mellitus, uncontrolled Glycemic state: with hypoglycemia Coma presence: without coma Qualified Code(s): E11.649 - Type 2 diabetes mellitus with hypoglycemia without coma
--- NOTE | 2024-01-13 13:16 | Hospitalist Progress Note ---
Date of Service January 13, 2024 Assessment & Plan (1) Ambulatory dysfunction: Plan: - in the setting of recent spinal surgery - no new acute findings on exam, not acute worsening, not back to baseline from prior and unable to complete ADLs at home - head CT on admission without acute pathology - Consult PT/OT -> will likely require further rehab/placement at d/c. - unsafe to d/c home at present (2) C2 cervical fracture: Plan: - Plan as per above - no acute changes in pain/weakness (3) Type 2 diabetes mellitus, uncontrolled: Plan: -Last hemoglobin a1c= 9.6 06/16-> repeat qAM - continue home Lantus dosing 26 units daily- recently adjusted at [facility], [facility] while inpatient - hold metformin , Januvia (4) Hypomagnesemia: Plan: - mg= 1.5; repleted (5) Elevated alkaline phosphatase level: Plan: - Alk phos= 619, downtrending from 1020 09/16 - no abdominal symptoms at present - ggt elevated on prior labs with history of biliary stent- replaced 08/2023 Plan Chronic Stable Medical Conditions- HLD- continue statin Depression- continue venlafaxine, BuSpar, Wellbutrin Diet: DM2 Code: Full VTE Prophylaxis: Lovenox Pending PT/OT eval Admission and Anticipated Discharge Date Admission Date: January 11, 2024 Subjective Patient was seen and examined at 10 AM. She complains of feeling weak in general. Denies chest pain or shortness of breath. Review of Systems Review of Systems: All systems reviewed & are unremarkable except as noted in Subjective Physical Exam Physical Exam: General: Awake, conversant. Neck collar in place Heart: S1, S2/regular rate and rhythm, no murmur rubs or gallops Lungs: Clear to auscultation bilaterally. Normal effort Abdomen: Soft/nontender/nondistended. No hepatosplenomegaly Extremities: No clubbing/cyanosis. No edema Behavior: Appropriate, cooperative Results & Data Results & Data Vital Signs (Past 12 Hours) Vital Signs Temp Pulse Resp BP Pulse Ox O2 Del Method 01/13/24 07:27 36.4 C L 91 H 17 125/83 96 Room Air PG Care Time/CCT Total # of Minutes Spent Total Time Spent with Patient: Total time spent is greater than 50% in coordination of care (as documented) at patient's floor/unit and/or counseling patient: Coding Level of Care Code 18948 SUB INP/OBS CARE 2/35MIN Diagnoses Ambulatory dysfunction R26.2 C2 cervical fracture S12.100A Encounter type: subsequent encounter Fracture alignment: posteriorly displaced Fracture morphology: type II dens Fracture type: closed Uncontrolled type 2 diabetes mellitus with hypoglycemia without coma E11.649 Glycemic state: with hypoglycemia Coma presence: without coma Hypomagnesemia E83.42 Elevated alkaline phosphatase level R74.8 (2) C2 cervical fracture Encounter type: subsequent encounter Fracture alignment: posteriorly displaced Fracture morphology: type II dens Fracture type: closed (3) Type 2 diabetes mellitus, uncontrolled Glycemic state: with hypoglycemia Coma presence: without coma Qualified Code(s): E11.649 - Type 2 diabetes mellitus with hypoglycemia without coma
--- NOTE | 2024-01-13 19:11 | Billing Data ---
Date of Service January 13, 2024 Coding Level of Care Code 32480 INT INP/OBS CARE
[2024-01-14] MEDS: INSULIN ASPART PER UNIT CHARGE SC STA (00:07)
[2024-01-14] MEDS ORDERED: PHARMACY GLYCEMIC MGMT CONSULT PRN (02:11)
[2024-01-14] MEDS: INSULIN ASPART PER UNIT CHARGE SC ONE (02:55)
[2024-01-14 07:44] LABS: Appearance Urine Cloudy (Clear); Bacteria Urine Automated 4+ (None Seen); Bilirubin Urine Negative (Negative); Blood Urine Negative (Negative); Cast Urine Automated 0-2 /lpf (0-2); Color Urine Yellow; Epithelial Cell Urine Auto 0-2 /hpf (0-2); Glucose Urine UA 3+ (Negative); Ketones Urine Trace (Negative); Leukocyte Esterase Urine 1+ (Negative); Nitrite Urine Positive (Negative); Protein Urine Negative (Negative); RBC Urine Automated >20 /hpf (0-2); Specific Gravity Urine 1.029 (1.000-1.030); Urobilinogen Urine Negative (Negative); WBC Urine Automated 21-50 /hpf (0-5); pH Urine 5.5 (4.5-7.5)
[2024-01-14] MEDS: LANTUS PER UNIT CHARGE SQ SCH (08:36)
--- NOTE | 2024-01-14 09:53 | Pharmacy Report ---
Pharmacy Glycemic Short Note 2 - Date of Service January 14, 2024 - Glycemic Short BSG Results (Last 24 hours): 01/13/24 01/13/24 01/13/24 11:28 16:43 20:27 POC Glucose 269 H 193 H 335 H* 01/13/24 01/13/24 01/13/24 20:32 23:21 23:23 POC Glucose 363 H* 311 H* 319 H* 01/14/24 01/14/24 02:00 07:43 POC Glucose 296 H 78 OUTPATIENT ANTIDIABETIC REGIMEN: * Insulin glargine 35 units QPM * Metformin 1000 mg BID * SSI Lispro up to 50 units daily * A1c 9.1% 01/12/24 ASSESSMENT: 01/13 * BENY is here for ambulatory dysfunction after her recent spinal surgery. Pharmacy has been consulted to manage her T2DM while inpatient. * Pt received 54 units of insulin yesterday * 26 units of glargine * 28 units of aspart * BSGs trended above goal range yesterday, then peaked last night. Pt note from last night states that pt ate food brought in from outside after already eating her dinner. BSG was corrected last night and this morning, BSG down to 78 before breakfast. Prior day's fasting BSGs above goal range so lantus increased this morning. * Pt ordered T2DM diet. PLAN FOR INPATIENT GLYCEMIC CONTROL: * Hold outpatient diabetes medications * Basal insulin * Lantus 30 units SQ * Bolus insulin * NovoLog per scale ACHS or Q6hrs while NPO * Goal Range: Low 110 mg/dL - High 140 mg/dL * Correction Factor: 25 mg/dL/unit * Nutritional / Prandial insulin per carb ratio of 1 unit per 8 grams CHO consumed
--- NOTE | 2024-01-14 14:21 | Hospitalist Progress Note ---
Date of Service January 14, 2024 Assessment & Plan (1) Ambulatory dysfunction: Plan: - in the setting of recent spinal surgery - no new acute findings on exam, not acute worsening, not back to baseline from prior and unable to complete ADLs at home - head CT on admission without acute pathology - Consult PT/OT, recommends rehab Case management on board (2) C2 cervical fracture: Plan: - Plan as per above - no acute changes in pain/weakness->no indication for repeat imagining at this time (3) Type 2 diabetes mellitus, uncontrolled: Plan: -Last hemoglobin a1c= 9.6 06/16. Repeat A1c was 9.1 - continue home Lantus dosing 26 units daily- recently adjusted at [facility], [facility] while inpatient - hold metformin , Januvia (4) Hypomagnesemia: Plan: - mg= 1.5; repleted - repeat qAM (5) Elevated alkaline phosphatase level: Plan: - Alk phos= 619, downtrending from 1020 09/16 - no abdominal symptoms at present - ggt elevated on prior labs with history of biliary stent- replaced 08/2023 Plan Chronic Stable Medical Conditions- HLD- continue statin Depression- continue venlafaxine, BuSpar, Wellbutrin Diet: DM2 Code: Full Dispo: Med Surg VTE Prophylaxis: Lovenox Admission and Anticipated Discharge Date Admission Date: January 11, 2024 Subjective Patient feels well. Denies chest pain or shortness of breath. Complains of fatigue and weak Review of Systems Review of Systems: All systems reviewed & are unremarkable except as noted in Subjective Physical Exam Physical Exam: General: Awake, conversant. Neck collar in place. Frail looking Heart: S1, S2/regular rate and rhythm, no murmur rubs or gallops Lungs: Clear to auscultation bilaterally. Normal effort Abdomen: Soft/nontender/nondistended. No hepatosplenomegaly Extremities: No clubbing/cyanosis. No edema Behavior: Appropriate, cooperative Results & Data Results & Data Vital Signs (Past 12 Hours) Vital Signs Temp Pulse Resp BP Pulse Ox O2 Del Method 01/14/24 11:34 98 01/14/24 07:45 Room Air 01/14/24 07:42 37.2 C 83 16 146/77 H 98 Room Air Laboratory Results Abnormal lab results 10/20/24 10/20/24 10/20/24 Range/Units 16:43 20:27 20:32 POC Glucose 193 H 335 H* 363 H* (70-99) mg/dl Urine Appearance (Clear) Urine Glucose (UA) (Negative) Urine Ketones (Negative) Urine Nitrite (Negative) Ur Leukocyte Esterase (Negative) Urine WBC (Auto) (0-5) /hpf Urine RBC (Auto) (0-2) /hpf Urine Bacteria (Auto) (None Seen) 01/13/24 01/13/24 01/14/24 Range/Units 23:21 23:23 02:00 POC Glucose 311 H* 319 H* 296 H (70-99) mg/dl Urine Appearance (Clear) Urine Glucose (UA) (Negative) Urine Ketones (Negative) Urine Nitrite (Negative) Ur Leukocyte Esterase (Negative) Urine WBC (Auto) (0-5) /hpf Urine RBC (Auto) (0-2) /hpf Urine Bacteria (Auto) (None Seen) 01/14/24 01/14/24 Range/Units 06:30 11:17 POC Glucose 197 H (70-99) mg/dl Urine Appearance Cloudy A (Clear) Urine Glucose (UA) 3+ H (Negative) Urine Ketones Trace H (Negative) Urine Nitrite Positive A (Negative) Ur Leukocyte Esterase 1+ H (Negative) Urine WBC (Auto) 21-50 H (0-5) /hpf Urine RBC (Auto) >20 H (0-2) /hpf Urine Bacteria (Auto) 4+ H (None Seen) PG Care Time/CCT Total # of Minutes Spent Total Time Spent with Patient: Total time spent is greater than 50% in coordination of care (as documented) at patient's floor/unit and/or counseling patient: Coding Level of Care Code 93023 SUB INP/OBS CARE 2/35MIN Diagnoses Ambulatory dysfunction R26.2 C2 cervical fracture S12.100A Encounter type: subsequent encounter Fracture alignment: posteriorly displaced Fracture morphology: type II dens Fracture type: closed Uncontrolled type 2 diabetes mellitus with hypoglycemia without coma E11.649 Glycemic state: with hypoglycemia Coma presence: without coma Hypomagnesemia E83.42 Elevated alkaline phosphatase level R74.8 (2) C2 cervical fracture Encounter type: subsequent encounter Fracture alignment: posteriorly displaced Fracture morphology: type II dens Fracture type: closed (3) Type 2 diabetes mellitus, uncontrolled Glycemic state: with hypoglycemia Coma presence: without coma Qualified Code(s): E11.649 - Type 2 diabetes mellitus with hypoglycemia without coma
[2024-01-14] MEDS: ACETAMINOPHEN 325 MG TAB PO PRN (20:42)
[2024-01-15 08:52] LABS: Hematocrit (blood only) 37.9 % (37.0-47.0); Hemoglobin 12.7 g/dl (12.0-16.0); Mean Corpuscular Hemoglobin 29.5 pg (25.0-34.0); Mean Corpuscular Hgb Conc 33.5 g/dL (32.0-36.0); Mean Corpuscular Volume 87.9 fL (80.0-100.0); Mean Platelet Volume 9.5 fL (9.4-12.4); Platelet Count 287 K/uL (130-400); RDW Coefficient of Variation 13.4 % (11.5-14.5); RDW Standard Deviation 43.3 fL (36.4-46.3); Red Blood Count 4.31 M/uL (4.20-5.40); White Blood Count 9.49 K/ul (4.8-10.8)
[2024-01-15 09:07] LABS: BUN Creatinine Ratio 18.6 (10-20); Creatinine Clr Calc Pharmacy 41.2 ml/min; Potassium 4.7 mmol/L (3.5-5.1)
--- NOTE | 2024-01-15 14:51 | Hospitalist Progress Note ---
Date of Service January 15, 2024 Assessment & Plan (1) Ambulatory dysfunction: Plan: - in the setting of recent spinal surgery - no new acute findings on exam, not acute worsening, not back to baseline from prior and unable to complete ADLs at home - head CT on admission without acute pathology - Consult PT/OT, recommends rehab Case management working on it (2) C2 cervical fracture: Plan: - Plan as per above - no acute changes in pain/weakness->no indication for repeat imagining at this time (3) Type 2 diabetes mellitus, uncontrolled: Plan: -Last hemoglobin a1c= 9.6 06/16. Repeat A1c was 9.1 - continue home Lantus dosing 26 units daily- recently adjusted at [facility], [facility] while inpatient - hold metformin , Januvia (4) Hypomagnesemia: Plan: - mg= 1.5; repleted - repeat qAM (5) Elevated alkaline phosphatase level: Plan: - Alk phos= 619, downtrending from 1020 09/16 - no abdominal symptoms at present - ggt elevated on prior labs with history of biliary stent- replaced 08/2023 Plan Chronic Stable Medical Conditions- HLD- continue statin Depression- continue venlafaxine, BuSpar, Wellbutrin Diet: DM2 Code: Full Dispo: Case management working on placement VTE Prophylaxis: Lovenox Admission and Anticipated Discharge Date Admission Date: January 11, 2024 Subjective Patient was seen and examined at 10:35 AM. She still complains of feeling very weak. Per nurse, patient is feeling weak. Review of Systems Review of Systems: All systems reviewed & are unremarkable except as noted in Subjective Physical Exam Physical Exam: General: Awake, conversant. Neck collar in place. Frail looking Heart: S1, S2/regular rate and rhythm, no murmur rubs or gallops Lungs: Clear to auscultation bilaterally. Normal effort Abdomen: Soft/nontender/nondistended. No hepatosplenomegaly Extremities: No clubbing/cyanosis. No edema Behavior: Appropriate, cooperative Results & Data Results & Data Vital Signs (Past 12 Hours) Vital Signs Temp Pulse Resp BP Pulse Ox O2 Del Method 01/15/24 07:55 36.6 C 87 16 110/72 95 Room Air 01/15/24 07:35 Room Air PG Care Time/CCT Total # of Minutes Spent Total Time Spent with Patient: Total time spent is greater than 50% in coordination of care (as documented) at patient's floor/unit and/or counseling patient: Coding Level of Care Code 71844 SUB INP/OBS CARE 2/35MIN Diagnoses Ambulatory dysfunction R26.2 C2 cervical fracture S12.100A Encounter type: subsequent encounter Fracture alignment: posteriorly displaced Fracture morphology: type II dens Fracture type: closed Uncontrolled type 2 diabetes mellitus with hypoglycemia without coma E11.649 Glycemic state: with hypoglycemia Coma presence: without coma Hypomagnesemia E83.42 Elevated alkaline phosphatase level R74.8 (2) C2 cervical fracture Encounter type: subsequent encounter Fracture alignment: posteriorly displaced Fracture morphology: type II dens Fracture type: closed (3) Type 2 diabetes mellitus, uncontrolled Glycemic state: with hypoglycemia Coma presence: without coma Qualified Code(s): E11.649 - Type 2 diabetes mellitus with hypoglycemia without coma
--- NOTE | 2024-01-15 15:11 | Pharmacy Report ---
Pharmacy Glycemic Short Note 2 - Date of Service January 15, 2024 - Glycemic Short BSG Results (Last 24 hours): 01/14/24 01/14/24 01/15/24 16:29 20:39 07:48 Glucose POC Glucose 207 H 132 H 256 H 01/15/24 01/15/24 01/15/24 08:34 11:33 11:35 Glucose 296 H POC Glucose 324 H* 288 H OUTPATIENT ANTIDIABETIC REGIMEN: * Insulin glargine 35 units QPM * Metformin 1000 mg BID * SSI Lispro up to 50 units daily * A1c 9.1% 01/12/24 ASSESSMENT: 01/14 * Sole received 56 units of insulin yesterday (30 units basal + 26 units bolus) * Fasting BSG of 256 mg/dL. RN reports patient eating/snacking overnight and between meals. This is not a true fasting. Will hold off on increasing basal for now. * Post prandial BSG elevation also noted. Novolog CF/CR tightened yesterday. Difficult to assess dose changes with carbs being consumed between meals. Will add overnight checks to assist in covering carbs consumed overnight. 01/13 * BENY is here for ambulatory dysfunction after her recent spinal surgery. Pharmacy has been consulted to manage her T2DM while inpatient. * Pt received 54 units of insulin yesterday * 26 units of glargine * 28 units of aspart * BSGs trended above goal range yesterday, then peaked last night. Pt note from last night states that pt ate food brought in from outside after already eating her dinner. BSG was corrected last night and this morning, BSG down to 78 before breakfast. Prior day's fasting BSGs above goal range so lantus increased this morning. * Pt ordered T2DM diet. PLAN FOR INPATIENT GLYCEMIC CONTROL: * Hold outpatient diabetes medications * Basal insulin * Lantus 30 units SQ * Bolus insulin * NovoLog per scale ACHS or Q6hrs while NPO * Goal Range: Low 110 mg/dL - High 140 mg/dL * Correction Factor: 25 mg/dL/unit * Nutritional / Prandial insulin per carb ratio of 1 unit per 7 grams CHO consumed
--- NOTE | 2024-01-15 22:49 | Electrocardiogram Report ---
Test Reason : Blood Pressure : */* mmHG Vent. Rate : 98 BPM Atrial Rate : 98 BPM P-R Int : 156 ms QRS Dur : 82 ms QT Int : 352 ms P-R-T Axes : -16 4 23 degrees QTcB Int : 449 ms Normal sinus rhythm Low voltage QRS When compared with ECG of 10-Oct-2023 22:10, No significant change was found Confirmed by Shaq Sumner ([id number]) on 01/15/2024 10:49:39 PM Referred By: REFERRED SELF Confirmed By: Shaq Sumner
[2024-01-16] MEDS: CARBOHYDRATES FOR HYPOGLYCEMIA PO PRN
[2024-01-16] MEDS: INSULIN ASPART PER UNIT CHARGE SC SCH ×3 (00:17→12:22)
--- NOTE | 2024-01-16 09:21 | Pharmacy Report ---
Pharmacy Glycemic Short Note 2 - Date of Service January 16, 2024 - Glycemic Short BSG Results (Last 24 hours): 01/15/24 01/15/24 01/15/24 11:33 11:35 16:34 POC Glucose 324 H* 288 H 192 H 01/15/24 01/15/24 01/15/24 20:07 23:55 23:57 POC Glucose 110 H 59 L* 56 L* 01/16/24 01/16/24 01/16/24 00:17 00:19 00:20 POC Glucose 60 L* 83 81 01/16/24 01/16/24 03:30 08:02 POC Glucose 282 H 259 H OUTPATIENT ANTIDIABETIC REGIMEN: * Insulin glargine 35 units SC PM * Metformin 1000 mg PO BID * SSI Lispro up to 50 units daily * A1c 9.1% 01/12/24 ASSESSMENT: 01/15: * Patient received 62 units of insulin yesterday (30 units basal + 32 units bolus). BSGs were [phone] mg/dL. * Overnight check at 0000 was low at 56 mg/dL. No symptoms reporting in nursing documentation. Treated with 15 g of carbs and BSG came up to 81 mg/dL. * BSG this AM was 259 mg/dL. Patient is known to be snacking. Due to hypoglycemia overnight, hesitant to increase basal. * Will tighten Novolog with breakfast today and then loosen for the rest of the day in hopes to prevent hypoglycemia but also control lunchtime BSGs better. 01/14: * Sole received 56 units of insulin yesterday (30 units basal + 26 units bolus) * Fasting BSG of 256 mg/dL. RN reports patient eating/snacking overnight and between meals. This is not a true fasting. Will hold off on increasing basal for now. * Post prandial BSG elevation also noted. Novolog CF/CR tightened yesterday. Difficult to assess dose changes with carbs being consumed between meals. Will add overnight checks to assist in covering carbs consumed overnight. 01/13: * BENY is here for ambulatory dysfunction after her recent spinal surgery. Pharmacy has been consulted to manage her T2DM while inpatient. * Pt received 54 units of insulin yesterday * 26 units of glargine * 28 units of aspart * BSGs trended above goal range yesterday, then peaked last night. Pt note from last night states that pt ate food brought in from outside after already eating her dinner. BSG was corrected last night and this morning, BSG down to 78 before breakfast. Prior day's fasting BSGs above goal range so lantus increased this morning. * Pt ordered T2DM diet. PLAN FOR INPATIENT GLYCEMIC CONTROL: * Hold outpatient diabetes medications * Basal insulin * Lantus 30 units SC AM * Bolus insulin * NovoLog per scale ACHS or Q6hrs while NPO * Goal Range: Low 110 mg/dL - High 140 mg/dL * Breakfast: Correction Factor: 20 mg/dL/unit ; Carb ratio of 1 unit per 6 grams CHO consumed * Lunch, Dinner, Bedtime: Correction Factor: 25 mg/dL/unit ; Carb ratio of 1 unit per 8 grams CHO consumed
--- NOTE | 2024-01-16 13:11 | Hospitalist Progress Note ---
Date of Service January 16, 2024 Assessment & Plan (1) Ambulatory dysfunction: Plan: - in the setting of recent spinal surgery - no new acute findings on exam, not acute worsening, not back to baseline from prior and unable to complete ADLs at home - head CT on admission without acute pathology - Consult PT/OT, recommends rehab Case management working on it (2) C2 cervical fracture: Plan: - Plan as per above - no acute changes in pain/weakness->no indication for repeat imagining at this time (3) Type 2 diabetes mellitus, uncontrolled: Plan: -Last hemoglobin a1c= 9.6 06/16. Repeat A1c was 9.1 - continue home Lantus dosing 26 units daily- recently adjusted at [facility], SSI while inpatient - hold metformin , Januvia (4) Hypomagnesemia: Plan: - mg= 1.5; repleted (5) Elevated alkaline phosphatase level: Plan: - Alk phos= 619, downtrending from 1020 09/16 - no abdominal symptoms at present - ggt elevated on prior labs with history of biliary stent- replaced 08/2023 Plan Chronic Stable Medical Conditions- HLD- continue statin Depression- continue venlafaxine, BuSpar, Wellbutrin Diet: DM2 Code: Full Dispo: Case management working on placement VTE Prophylaxis: Lovenox Admission and Anticipated Discharge Date Admission Date: January 11, 2024 Subjective Patient was seen and examined at 9:45 AM. She feels weak in general but no new complaints. Nurse reported no new concerns Review of Systems Review of Systems: All systems reviewed & are unremarkable except as noted in Subjective Physical Exam Physical Exam: General: Awake, conversant. Neck collar in place. Frail looking Heart: S1, S2/regular rate and rhythm, no murmur rubs or gallops Lungs: Clear to auscultation bilaterally. Normal effort Abdomen: Soft/nontender/nondistended. No hepatosplenomegaly Extremities: No clubbing/cyanosis. No edema Behavior: Appropriate, cooperative Results & Data Results & Data Vital Signs (Past 12 Hours) Vital Signs Temp Pulse Resp BP Pulse Ox O2 Del Method 01/16/24 06:37 36.9 C 87 16 100/69 97 Room Air PG Care Time/CCT Total # of Minutes Spent Total Time Spent with Patient: Total time spent is greater than 50% in coordination of care (as documented) at patient's floor/unit and/or counseling patient: Coding Level of Care Code 43596 SUB INP/OBS CARE 2/35MIN Diagnoses Ambulatory dysfunction R26.2 C2 cervical fracture S12.100A Encounter type: subsequent encounter Fracture alignment: posteriorly displaced Fracture morphology: type II dens Fracture type: closed Uncontrolled type 2 diabetes mellitus with hypoglycemia without coma E11.649 Glycemic state: with hypoglycemia Coma presence: without coma Hypomagnesemia E83.42 Elevated alkaline phosphatase level R74.8 (2) C2 cervical fracture Encounter type: subsequent encounter Fracture alignment: posteriorly displaced Fracture morphology: type II dens Fracture type: closed (3) Type 2 diabetes mellitus, uncontrolled Glycemic state: with hypoglycemia Coma presence: without coma Qualified Code(s): E11.649 - Type 2 diabetes mellitus with hypoglycemia without coma
[2024-01-16] MEDS: POLYETHYLENE (MIRALAX) 17 GM PACK PO PRN (17:46)
--- NOTE | 2024-01-17 16:12 | Hospitalist Progress Note ---
Date of Service January 17, 2024 Assessment & Plan (1) Ambulatory dysfunction: Plan: - in the setting of recent spinal surgery - no new acute findings on exam, not acute worsening, not back to baseline from prior and unable to complete ADLs at home - head CT on admission without acute pathology - Consult PT/OT, recommends rehab Case management working on it (2) C2 cervical fracture: Plan: - Plan as per above - no acute changes in pain/weakness->no indication for repeat imagining at this time (3) Type 2 diabetes mellitus, uncontrolled: Plan: -Last hemoglobin a1c= 9.6 06/16. Repeat A1c was 9.1 - continue home Lantus dosing 26 units daily- recently adjusted at [facility], SSI while inpatient - hold metformin , Januvia (4) Hypomagnesemia: Plan: - mg= 1.5; repleted (5) Elevated alkaline phosphatase level: Plan: - Alk phos= 619, downtrending from 1020 09/16 - no abdominal symptoms at present - ggt elevated on prior labs with history of biliary stent- replaced 08/2023 Plan Chronic Stable Medical Conditions- HLD- continue statin Depression- continue venlafaxine, BuSpar, Wellbutrin Diet: DM2 Code: Full Dispo: Case management working on placement VTE Prophylaxis: Lovenox Admission and Anticipated Discharge Date Admission Date: January 11, 2024 Subjective Patient was seen and examined at 10:25 AM. Patient has no complaints. Denies chest pain or shortness of breath. Nurse reports no concerns. Review of Systems Review of Systems: All systems reviewed & are unremarkable except as noted in Subjective Physical Exam Physical Exam: General: Awake, conversant. Frail looking Heart: S1, S2/regular rate and rhythm, no murmur rubs or gallops Lungs: Clear to auscultation bilaterally. Normal effort Abdomen: Soft/nontender/nondistended. No hepatosplenomegaly Extremities: No clubbing/cyanosis. No edema Behavior: Appropriate, cooperative Results & Data Results & Data Vital Signs (Past 12 Hours) Vital Signs Temp Pulse Pulse Resp BP Pulse Ox O2 Del Method 01/17/24 14:37 36.7 C 98 H 16 103/67 98 Room Air 01/17/24 09:45 Room Air 01/17/24 07:05 36.6 C 89 16 97/67 L 96 Room Air Laboratory Results Abnormal lab results 01/16/24 01/17/24 01/17/24 Range/Units 20:22 07:07 11:56 POC Glucose 108 H 233 H 294 H (70-99) mg/dl PG Care Time/CCT Total # of Minutes Spent Total Time Spent with Patient: Total time spent is greater than 50% in coordination of care (as documented) at patient's floor/unit and/or counseling patient: Coding Level of Care Code 31057 SUB INP/OBS CARE 2/35MIN Diagnoses Ambulatory dysfunction R26.2 C2 cervical fracture S12.100A Encounter type: subsequent encounter Fracture alignment: posteriorly displaced Fracture morphology: type II dens Fracture type: closed Uncontrolled type 2 diabetes mellitus with hypoglycemia without coma E11.649 Glycemic state: with hypoglycemia Coma presence: without coma Hypomagnesemia E83.42 Elevated alkaline phosphatase level R74.8 (2) C2 cervical fracture Encounter type: subsequent encounter Fracture alignment: posteriorly displaced Fracture morphology: type II dens Fracture type: closed (3) Type 2 diabetes mellitus, uncontrolled Glycemic state: with hypoglycemia Coma presence: without coma Qualified Code(s): E11.649 - Type 2 diabetes mellitus with hypoglycemia without coma
[2024-01-17] MEDS: DOCUSATE SODIUM 100 MG CAP PO SCH (20:15)
[2024-01-17] MEDS ORDERED: LANTUS PER UNIT CHARGE SC SCH (21:00)
[2024-01-18] MEDS: LANTUS PER UNIT CHARGE SQ SCH (09:08)
--- NOTE | 2024-01-18 14:35 | Hospitalist Progress Note ---
Date of Service January 18, 2024 Assessment & Plan (1) Ambulatory dysfunction: Plan: - in the setting of recent spinal surgery - no new acute findings on exam, not acute worsening, not back to baseline from prior and unable to complete ADLs at home - head CT on admission without acute pathology - Consult PT/OT, recommends rehab Case management working on it (2) C2 cervical fracture: Plan: - Plan as per above - no acute changes in pain/weakness->no indication for repeat imagining at this time (3) Type 2 diabetes mellitus, uncontrolled: Plan: -Last hemoglobin a1c= 9.6 06/16. Repeat A1c was 9.1 - continue home Lantus dosing 26 units daily- recently adjusted at [facility], SSI while inpatient - hold metformin , Januvia (4) Hypomagnesemia: Plan: - mg= 1.5; repleted (5) Elevated alkaline phosphatase level: Plan: - Alk phos= 619, downtrending from 1020 09/16 - no abdominal symptoms at present - ggt elevated on prior labs with history of biliary stent- replaced 08/2023 Plan Chronic Stable Medical Conditions- HLD- continue statin Depression- continue venlafaxine, BuSpar, Wellbutrin Diet: DM2 Code: Full Dispo: Case management working on placement VTE Prophylaxis: Lovenox Admission and Anticipated Discharge Date Admission Date: January 11, 2024 Subjective Patient was seen and examined at 10:35 AM. Patient complains of feeling weak. No other complaints. No concerns from nursing either. Physical Exam Physical Exam: General: Awake, conversant. Frail looking Heart: S1, S2/regular rate and rhythm, no murmur rubs or gallops Lungs: Clear to auscultation bilaterally. Normal effort Abdomen: Soft/nontender/nondistended. No hepatosplenomegaly Extremities: No clubbing/cyanosis. No edema Behavior: Appropriate, cooperative Results & Data Results & Data Vital Signs (Past 12 Hours) Vital Signs Temp Pulse Resp BP Pulse Ox O2 Del Method 01/18/24 08:01 37.4 C 88 16 119/79 96 Room Air Laboratory Results Abnormal lab results 01/17/24 01/17/24 01/18/24 Range/Units 16:40 20:13 11:46 POC Glucose 167 H 110 H 194 H (70-99) mg/dl PG Care Time/CCT Total # of Minutes Spent Total Time Spent with Patient: Total time spent is greater than 50% in coordination of care (as documented) at patient's floor/unit and/or counseling patient: Coding Level of Care Code 04858 SUB INP/OBS CARE 2/35MIN Diagnoses Ambulatory dysfunction R26.2 C2 cervical fracture S12.100A Encounter type: subsequent encounter Fracture alignment: posteriorly displaced Fracture morphology: type II dens Fracture type: closed Uncontrolled type 2 diabetes mellitus with hypoglycemia without coma E11.649 Glycemic state: with hypoglycemia Coma presence: without coma Hypomagnesemia E83.42 Elevated alkaline phosphatase level R74.8 (2) C2 cervical fracture Encounter type: subsequent encounter Fracture alignment: posteriorly displaced Fracture morphology: type II dens Fracture type: closed (3) Type 2 diabetes mellitus, uncontrolled Glycemic state: with hypoglycemia Coma presence: without coma Qualified Code(s): E11.649 - Type 2 diabetes mellitus with hypoglycemia without coma
--- NOTE | 2024-01-18 15:00 | Pharmacy Report ---
Pharmacy Glycemic Short Note 2 - Date of Service January 18, 2024 - Glycemic Short BSG Results (Last 24 hours): 01/17/24 01/17/24 01/18/24 16:40 20:13 07:59 POC Glucose 167 H 110 H 92 01/18/24 11:46 POC Glucose 194 H OUTPATIENT ANTIDIABETIC REGIMEN: * Insulin glargine 35 units SC PM * Metformin 1000 mg PO BID * SSI Lispro up to 50 units daily * A1c 9.1% 01/12/24 ASSESSMENT: 01/17 * Patient received a total of 60 units of insulin yesterday. 30 units were basal and 30 units were bolus. * BSG have been trending on the lower end in the evenings so the AM dose of Lantus was decreased to 27 units. * Fasting BSG was 92mg/dL this morning and lunch BSG was 194. Bolus parameters recently tightened with breakfast which has decreased the lunch time BSG. Will continue the tighter parameters for breakfast and the looser parameters the rest of the day to also help prevent the lower BSGs in the evening. 01/15: * Patient received 62 units of insulin yesterday (30 units basal + 32 units bolus). BSGs were 190-123-632-110 mg/dL. * Overnight check at 0000 was low at 56 mg/dL. No symptoms reporting in nursing documentation. Treated with 15 g of carbs and BSG came up to 81 mg/dL. * BSG this AM was 259 mg/dL. Patient is known to be snacking. Due to hypoglycemia overnight, hesitant to increase basal. * Will tighten Novolog with breakfast today and then loosen for the rest of the day in hopes to prevent hypoglycemia but also control lunchtime BSGs better. 01/14: * Sole received 56 units of insulin yesterday (30 units basal + 26 units bolus) * Fasting BSG of 256 mg/dL. RN reports patient eating/snacking overnight and between meals. This is not a true fasting. Will hold off on increasing basal for now. * Post prandial BSG elevation also noted. Novolog CF/CR tightened yesterday. Difficult to assess dose changes with carbs being consumed between meals. Will add overnight checks to assist in covering carbs consumed overnight. 01/13: * BENY is here for ambulatory dysfunction after her recent spinal surgery. Pharmacy has been consulted to manage her T2DM while inpatient. * Pt received 54 units of insulin yesterday * 26 units of glargine * 28 units of aspart * BSGs trended above goal range yesterday, then peaked last night. Pt note from last night states that pt ate food brought in from outside after already eating her dinner. BSG was corrected last night and this morning, BSG down to 78 before breakfast. Prior day's fasting BSGs above goal range so lantus increased this morning. * Pt ordered T2DM diet. PLAN FOR INPATIENT GLYCEMIC CONTROL: * Hold outpatient diabetes medications * Basal insulin * Lantus 27 units SC AM * Bolus insulin * NovoLog per scale ACHS or Q6hrs while NPO * Goal Range: Low 110 mg/dL - High 140 mg/dL * Breakfast: Correction Factor: 20 mg/dL/unit ; Carb ratio of 1 unit per 6 grams CHO consumed * Lunch, Dinner, Bedtime: Correction Factor: 30 mg/dL/unit ; Carb ratio of 1 unit per 8 grams CHO consumed
[2024-01-18] MEDS: POLYETHYLENE (MIRALAX) 17 GM PACK PO SCH (22:35)
[2024-01-19] MEDS: LANTUS PER UNIT CHARGE SQ SCH (09:04)
--- NOTE | 2024-01-19 11:17 | Hospitalist Progress Note ---
Date of Service January 19, 2024 Assessment & Plan (1) Ambulatory dysfunction: Plan: - in the setting of recent spinal surgery - no new acute findings on exam, not acute worsening, not back to baseline from prior and unable to complete ADLs at home - head CT on admission without acute pathology - Consult PT/OT, recommends rehab Case management working on it (2) C2 cervical fracture: Plan: - Plan as per above - no acute changes in pain/weakness->no indication for repeat imagining at this time (3) Type 2 diabetes mellitus, uncontrolled: Plan: -Last hemoglobin a1c= 9.6 06/16. Repeat A1c was 9.1 - continue home Lantus dosing 26 units daily- recently adjusted at [facility], SSI while inpatient - hold metformin , Januvia (4) Hypomagnesemia: Plan: - replaced (5) Elevated alkaline phosphatase level: Plan: - Alk phos= 619, downtrending from 1020 09/16 - no abdominal symptoms at present - ggt elevated on prior labs with history of biliary stent- replaced 08/2023 Plan Chronic Stable Medical Conditions- HLD- continue statin Depression- continue venlafaxine, BuSpar, Wellbutrin Diet: DM2 Code: Full Dispo: Case management working on placement, hopefully ceter care VTE Prophylaxis: Lovenox Admission and Anticipated Discharge Date Admission Date: January 11, 2024 Subjective patient seen and examined, no new complaints Review of Systems Review of Systems: All systems reviewed are negative, apart from the ones contained in the history. Physical Exam Physical Exam: The patient is awake, alert and oriented 3, well developed and well nourished, normocephalic and atraumatic, lying in bed and in no acute distress. HEENT--PERRL, EOMI, mucous membranes and oropharynx mildly dry Neck--supple. No JVD. No bruits. Thyroid normal, trachea midline, no adenopathy. Heart--normal S1 and S2. No murmurs, rubs or gallops. Lungs--clear bilaterally, no respiratory distress, no accessory muscle use. Abdomen--normal bowel sounds and soft. Extremities--no cyanosis or clubbing. No edema. Dermatologic--normal skin turgor, normal color, no abnormal lymph nodes, no rash. Neurologic--cranial nerves II through XII grossly intact. Rheumatologic--normal range of motion. Psychiatric--normal affect. Results & Data Results & Data Vital Signs (Past 12 Hours) Vital Signs Temp Pulse Resp BP Pulse Ox O2 Del Method 01/19/24 07:22 97.7 F 89 16 115/70 96 Room Air PG Care Time/CCT Total # of Minutes Spent Total Time Spent with Patient: Total time spent is greater than 50% in coordination of care (as documented) at patient's floor/unit and/or counseling patient: Coding Level of Care Code 61108 SUB INP/OBS CARE 2/35MIN Diagnoses Ambulatory dysfunction R26.2 C2 cervical fracture S12.100A Encounter type: subsequent encounter Fracture alignment: posteriorly displaced Fracture morphology: type II dens Fracture type: closed Uncontrolled type 2 diabetes mellitus with hypoglycemia without coma E11.649 Glycemic state: with hypoglycemia Coma presence: without coma Hypomagnesemia E83.42 Elevated alkaline phosphatase level R74.8 Time Spent (min) 35 (2) C2 cervical fracture Encounter type: subsequent encounter Fracture alignment: posteriorly displaced Fracture morphology: type II dens Fracture type: closed (3) Type 2 diabetes mellitus, uncontrolled Glycemic state: with hypoglycemia Coma presence: without coma Qualified Code(s): E11.649 - Type 2 diabetes mellitus with hypoglycemia without coma
--- NOTE | 2024-01-19 14:57 | Pharmacy Report ---
Pharmacy Glycemic Short Note 2 - Date of Service January 19, 2024 - Glycemic Short BSG Results (Last 24 hours): 01/18/24 01/18/24 01/18/24 16:32 16:35 18:35 POC Glucose 61 L* 67 L* 127 H 01/18/24 01/19/24 01/19/24 20:34 07:29 11:46 POC Glucose 107 H 182 H 242 H OUTPATIENT ANTIDIABETIC REGIMEN: * Insulin glargine 35 units SC PM * Metformin 1000 mg PO BID * SSI Lispro up to 50 units daily * A1c 9.1% 01/12/24 ASSESSMENT: 01/18: * BSGs erratic the last 24h: 62-859-196-242mgd/L. Received 47 units of insulin yesterday (27 units basal and 20 units bolus insulin). Patient did have one low BSG to 61mg/dl last evening. Tends to be high in the AM/lunch and low in the evening. * Tolerating diet, other stressors stable. * Basal increased to 30 units today given elevated fasting. Novolog loosened fur ther for lunch/evening doses to prevent lows toward the end of the day. Breakfast Novolog tightened starting tomorrow. 01/17 * Patient received a total of 60 units of insulin yesterday. 30 units were basal and 30 units were bolus. * BSG have been trending on the lower end in the evenings so the AM dose of Lantus was decreased to 27 units. * Fasting BSG was 92mg/dL this morning and lunch BSG was 194. Bolus parameters recently tightened with breakfast which has decreased the lunch time BSG. Will continue the tighter parameters for breakfast and the looser parameters the rest of the day to also help prevent the lower BSGs in the evening. 01/15: * Patient received 62 units of insulin yesterday (30 units basal + 32 units bolus). BSGs were 735-468-957-110 mg/dL. * Overnight check at 0000 was low at 56 mg/dL. No symptoms reporting in nursing documentation. Treated with 15 g of carbs and BSG came up to 81 mg/dL. * BSG this AM was 259 mg/dL. Patient is known to be snacking. Due to hypoglycemi a overnight, hesitant to increase basal. * Will tighten Novolog with breakfast today and then loosen for the rest of the day in hopes to prevent hypoglycemia but also control lunchtime BSGs better. 01/14: * Sole received 56 units of insulin yesterday (30 units basal + 26 units bolus) * Fasting BSG of 256 mg/dL. RN reports patient eating/snacking overnight and between meals. This is not a true fasting. Will hold off on increasing basal for now. * Post prandial BSG elevation also noted. Novolog CF/CR tightened yesterday. Difficult to assess dose changes with carbs being consumed between meals. Will add overnight checks to assist in covering carbs consumed overnight. 01/13: * BENY is here for ambulatory dysfunction after her recent spinal surgery. Pharmacy has been consulted to manage her T2DM while inpatient. * Pt received 54 units of insulin yesterday * 26 units of glargine * 28 units of aspart * BSGs trended above goal range yesterday, then peaked last night. Pt note from last night states that pt ate food brought in from outside after already eating her dinner. BSG was corrected last night and this morning, BSG down to 78 before breakfast. Prior day's fasting BSGs above goal range so lantus increased this morning. * Pt ordered T2DM diet. PLAN FOR INPATIENT GLYCEMIC CONTROL: * Hold outpatient diabetes medications * Basal insulin * Lantus 30 units SC AM * Bolus insulin * NovoLog per scale ACHS or Q6hrs while NPO * Goal Range: Low 110 mg/dL - High 140 mg/dL * Breakfast: Correction Factor: 15 mg/dL/unit ; Carb ratio of 1 unit per 5 grams CHO consumed * Lunch, Dinner, Bedtime: Correction Factor: 35 mg/dL/unit ; Carb ratio of 1 unit per 9 grams CHO consumed
--- NOTE | 2024-01-20 10:54 | Hospitalist Progress Note ---
Date of Service January 20, 2024 Assessment & Plan (1) Ambulatory dysfunction: Plan: - in the setting of recent spinal surgery - no new acute findings on exam, not acute worsening, not back to baseline from prior and unable to complete ADLs at home - head CT on admission without acute pathology - Consult PT/OT, recommends rehab Case management working on it (2) C2 cervical fracture: Plan: - Plan as per above - complained of some mild neck pain and discomfort (3) Type 2 diabetes mellitus, uncontrolled: Plan: -Last hemoglobin a1c= 9.6 06/16. Repeat A1c was 9.1 - continue home Lantus dosing 26 units daily- recently adjusted at [facility], SSI while inpatient - hold metformin , Januvia (4) Hypomagnesemia: Plan: - replaced (5) Elevated alkaline phosphatase level: Plan: - Alk phos= 619, downtrending from 1020 09/16 - no abdominal symptoms at present - ggt elevated on prior labs with history of biliary stent- replaced 08/2023 Plan Chronic Stable Medical Conditions- HLD- continue statin Depression- continue venlafaxine, BuSpar, Wellbutrin Diet: DM2 Code: Full Dispo: Case management working on placement, hopefully ceter care VTE Prophylaxis: Lovenox Admission and Anticipated Discharge Date Admission Date: January 11, 2024 Subjective patient seen and examined,complained of some neck pain Review of Systems Review of Systems: All systems reviewed are negative, apart from the ones contained in the history. Physical Exam Physical Exam: The patient is awake, alert and oriented 3, well developed and well nourished, normocephalic and atraumatic, lying in bed and in no acute distress. HEENT--PERRL, EOMI, mucous membranes and oropharynx mildly dry Neck--supple. No JVD. No bruits. Thyroid normal, trachea midline, no adenopathy. Heart--normal S1 and S2. No murmurs, rubs or gallops. Lungs--clear bilaterally, no respiratory distress, no accessory muscle use. Abdomen--normal bowel sounds and soft. Extremities--no cyanosis or clubbing. No edema. Dermatologic--normal skin turgor, normal color, no abnormal lymph nodes, no rash. Neurologic--cranial nerves II through XII grossly intact. Rheumatologic--normal range of motion. Psychiatric--normal affect. Results & Data Results & Data Vital Signs (Past 12 Hours) Vital Signs Temp Pulse Resp BP Pulse Ox O2 Del Method 01/20/24 07:23 97.3 F L 81 16 115/75 94 Room Air PG Care Time/CCT Total # of Minutes Spent Total Time Spent with Patient: Total time spent is greater than 50% in coordination of care (as documented) at patient's floor/unit and/or counseling patient: Coding Level of Care Code 86624 SUB INP/OBS CARE 2/35MIN Diagnoses Ambulatory dysfunction R26.2 C2 cervical fracture S12.100A Encounter type: subsequent encounter Fracture alignment: posteriorly displaced Fracture morphology: type II dens Fracture type: closed Uncontrolled type 2 diabetes mellitus with hypoglycemia without coma E11.649 Glycemic state: with hypoglycemia Coma presence: without coma Hypomagnesemia E83.42 Elevated alkaline phosphatase level R74.8 Time Spent (min) 35 (2) C2 cervical fracture Encounter type: subsequent encounter Fracture alignment: posteriorly displaced Fracture morphology: type II dens Fracture type: closed (3) Type 2 diabetes mellitus, uncontrolled Glycemic state: with hypoglycemia Coma presence: without coma Qualified Code(s): E11.649 - Type 2 diabetes mellitus with hypoglycemia without coma
[2024-01-20] MEDS: INSULIN ASPART PER UNIT CHARGE SC ONE (14:40)
[2024-01-20] MEDS: POLYETHYLENE (MIRALAX) 17 GM PACK PO SCH (20:25)
[2024-01-20] MEDS: GLYCERIN ADULT 12 SUPP/BOX SUPP PR ONE (21:30)
[2024-01-21] MEDS: LANTUS PER UNIT CHARGE SQ SCH (08:46)
[2024-01-21 08:52] LABS: Hematocrit (blood only) 33.8 % (37.0-47.0); Hemoglobin 11.2 g/dl (12.0-16.0); Mean Corpuscular Hemoglobin 29.2 pg (25.0-34.0); Mean Corpuscular Hgb Conc 33.1 g/dL (32.0-36.0); Mean Corpuscular Volume 88.3 fL (80.0-100.0); Mean Platelet Volume 10.3 fL (9.4-12.4); Platelet Count 205 K/uL (130-400); RDW Coefficient of Variation 13.6 % (11.5-14.5); RDW Standard Deviation 43.9 fL (36.4-46.3); Red Blood Count 3.83 M/uL (4.20-5.40)
--- NOTE | 2024-01-21 09:11 | Pharmacy Report ---
Pharmacy Glycemic Short Note 2 - Date of Service January 21, 2024 - Glycemic Short BSG Results (Last 24 hours): 01/20/24 01/20/24 01/20/24 11:22 11:23 13:54 POC Glucose 335 H* 332 H* 273 H 01/20/24 01/20/24 01/21/24 16:37 20:07 07:47 POC Glucose 122 H 176 H 244 H OUTPATIENT ANTIDIABETIC REGIMEN: * Insulin glargine 35 units SC PM * Metformin 1000 mg PO BID * SSI Lispro up to 50 units daily HbA1c: 9.1% 01/12/24 ASSESSMENT: 01/20: * Blood sugars remain elevated overall w/ highest blood sugar at lunchtime * Fasting blood sugar of 244 mg/dL this morning (has been elevated largely been elevated, but w/ occasional lower fasting blood sugars noted as well) * Will increase basal by 10% today * Continue w/ more aggressive Novolog parameters in AM and loosen for rest of day 01/18: * BSGs erratic the last 24h: 66-213-661-242mgd/L. Received 47 units of insulin yesterday (27 units basal and 20 units bolus insulin). Patient did have one low BSG to 61mg/dl last evening. Tends to be high in the AM/lunch and low in the evening. * Tolerating diet, other stressors stable. * Basal increased to 30 units today given elevated fasting. Novolog loosened further for lunch/evening doses to prevent lows toward the end of the day. Breakfast Novolog tightened starting tomorrow. 01/17 * Patient received a total of 60 units of insulin yesterday. 30 units were basal and 30 units were bolus. * BSG have been trending on the lower end in the evenings so the AM dose of Lantus was decreased to 27 units. * Fasting BSG was 92mg/dL this morning and lunch BSG was 194. Bolus parameters recently tightened with breakfast which has decreased the lunch time BSG. Will continue the tighter parameters for breakfast and the looser parameters the rest of the day to also help prevent the lower BSGs in the evening. 01/13: * BENY is here for ambulatory dysfunction after her recent spinal surgery. Pharmacy has been consulted to manage her T2DM while inpatient. * Pt received 54 units of insulin yesterday * 26 units of glargine * 28 units of aspart * BSGs trended above goal range yesterday, then peaked last night. Pt note from last night states that pt ate food brought in from outside after already eating her dinner. BSG was corrected last night and this morning, BSG down to 78 before breakfast. Prior day's fasting BSGs above goal range so lantus increased this morning. * Pt ordered T2DM diet. PLAN FOR INPATIENT GLYCEMIC CONTROL: * Hold outpatient diabetes medications * Basal insulin - increase * Lantus 33 units SC AM * Bolus insulin * NovoLog per scale ACHS or Q6hrs while NPO * Goal Range: Low 110 mg/dL - High 140 mg/dL * Breakfast: Correction Factor: 15 mg/dL/unit ; Carb ratio of 1 unit per 4 grams CHO consumed * Lunch, Dinner, Bedtime: Correction Factor: 35 mg/dL/unit ; Carb ratio of 1 unit per 9 grams CHO consumed
[2024-01-21 09:12] LABS: BUN Creatinine Ratio 23.3 (10-20); Calcium 9.7 mg/dl (8.6-10.3); Creatinine Clr Calc Pharmacy 54.1 ml/min; Potassium 4.3 mmol/L (3.5-5.1)
--- NOTE | 2024-01-21 10:42 | XRay Report ---
KUB CLINICAL HISTORY: no BM, concern for obstruction COMPARISON STUDY: CT of the abdomen and pelvis September 07, 2023. FINDINGS: Cholecystectomy clips and biliary stents are incidentally noted. The bowel gas pattern is n ormal. There is a large amount stool within the rectum and colon. No urinary calculi are identified. IMPRESSION: 1. Large amount of stool within the rectum and colon. 2. No evidence for a bowel obstruction. 3. Biliary stents in place. ACT 112: Negative or not required by law. Electronically signed by: Noel New M.D. 01/21/2024 10:41 AM
--- NOTE | 2024-01-21 11:27 | Discharge Summary ---
Date of Service January 21, 2024 Admission HPI Per Admitting Provider 73 year old female with a past medical history of DM2, HTN, HLD, depression presenting with concern for weakness after d/c from [facility] this afternoon. She has a C2 fracture requiring surgery in 09/2023, in October she had a fall which resulted in pedicle screw that had entered the spinal canal. This required repeat surgery in [place]. She was discharged to [facility] and then to [facility]. Limited improvement at [facility] and was sent back to [facility]. Today she was discharged from [facility] to home. Lives alone with mother, who is 92. No other family in the area. At home pt was not able to ambulatory and had concerns for falling, which prompted mother to call EMS. Denies fall. Denie new weakness/pain. Admission Exam (Per Admitting) Constitutional The patient is awake, alert and oriented 3, well developed and well nourished, normocephalic and atraumatic, lying in bed and in no acute distress. HEENT--PERRL, EOMI, mucous membranes and oropharynx mildly dry Neck--supple. No JVD. No bruits. Thyroid normal, trachea midline, no adenopathy. Heart--normal S1 and S2. No murmurs, rubs or gallops. Lungs--clear bilaterally, no respiratory distress, no accessory muscle use. Abdomen--normal bowel sounds and soft. Extremities--no cyanosis or clubbing. No edema. Dermatologic--normal skin turgor, normal color, no abnormal lymph nodes, no rash. Neurologic--cranial nerves II through XII grossly intact. Rheumatologic--normal range of motion. Psychiatric--normal affect. Discharge Data Consultations 01/11/24 22:36 ED Decision to Admit Stat Diabetes Follow Up Diabetes Follow Up: Diabetes Follow-up Needed for HgbA1c >9% Hospital Course (1) Ambulatory dysfunction: - in the setting of recent spinal surgery - no new acute findings on exam, not acute worsening, not back to baseline from prior and unable to complete ADLs at home - head CT on admission without acute pathology - Consult PT/OT, recommends rehab Case management working on it (2) C2 cervical fracture: - Plan as per above - complained of some mild neck pain and discomfort (3) Type 2 diabetes mellitus, uncontrolled: -Last hemoglobin a1c= 9.6 06/16. Repeat A1c was 9.1 - continue home Lantus dosing 26 units daily- recently adjusted at [facility], SSI while inpatient - hold metformin , Januvia (4) Hypomagnesemia: - replaced (5) Elevated alkaline phosphatase level: - Alk phos= 619, downtrending from 1020 09/16 - no abdominal symptoms at present - ggt elevated on prior labs with history of biliary stent- replaced 08/2023 Plan Chronic Stable Medical Conditions- HLD- continue statin Depression- continue venlafaxine, BuSpar, Wellbutrin Diet: DM2 Code: Full Dispo: Case management working on placement, hopefully ceter care VTE Prophylaxis: Lovenox Coding Level of Care Code 13447 INP/OBS DISCH >30 MIN Diagnoses Ambulatory dysfunction R26.2 C2 cervical fracture S12.100A Encounter type: subsequent encounter Fracture alignment: posteriorly displaced Fracture morphology: type II dens Fracture type: closed Uncontrolled type 2 diabetes mellitus with hypoglycemia without coma E11.649 Glycemic state: with hypoglycemia Coma presence: without coma Hypomagnesemia E83.42 Elevated alkaline phosphatase level R74.8 Time Spent (min) 35
--- NOTE | 2024-01-21 14:36 | Hospitalist Progress Note ---
Date of Service January 21, 2024 Assessment & Plan (1) Ambulatory dysfunction: Plan: - in the setting of recent spinal surgery - no new acute findings on exam, not acute worsening, not back to baseline from prior and unable to complete ADLs at home - head CT on admission without acute pathology - Consult PT/OT, recommends rehab Case management working on it (2) C2 cervical fracture: Plan: - Plan as per above - complained of some mild neck pain and discomfort (3) Type 2 diabetes mellitus, uncontrolled: Plan: -Last hemoglobin a1c= 9.6 06/16. Repeat A1c was 9.1 - continue home Lantus dosing 26 units daily- recently adjusted at [facility], SSI while inpatient - hold metformin , Januvia (4) Hypomagnesemia: Plan: - replaced (5) Elevated alkaline phosphatase level: Plan: - Alk phos= 619, downtrending from 1020 09/16 - no abdominal symptoms at present - ggt elevated on prior labs with history of biliary stent- replaced 08/2023 Plan Chronic Stable Medical Conditions- HLD- continue statin Depression- continue venlafaxine, BuSpar, Wellbutrin Diet: DM2 Code: Full Dispo: Case management working on placement, hopefully center care. unable to get litter transport today. hopefully tomorrow VTE Prophylaxis: Lovenox Admission and Anticipated Discharge Date Admission Date: January 11, 2024 Subjective patient seen and examined,complained of some neck pain Review of Systems Review of Systems: All systems reviewed are negative, apart from the ones contained in the history. Physical Exam Physical Exam: The patient is awake, alert and oriented 3, well developed and well nourished, normocephalic and atraumatic, lying in bed and in no acute distress. HEENT--PERRL, EOMI, mucous membranes and oropharynx mildly dry Neck--supple. No JVD. No bruits. Thyroid normal, trachea midline, no adenopathy. Heart--normal S1 and S2. No murmurs, rubs or gallops. Lungs--clear bilaterally, no respiratory distress, no accessory muscle use. Abdomen--normal bowel sounds and soft. Extremities--no cyanosis or clubbing. No edema. Dermatologic--normal skin turgor, normal color, no abnormal lymph nodes, no rash. Neurologic--cranial nerves II through XII grossly intact. Rheumatologic--normal range of motion. Psychiatric--normal affect. Results & Data Results & Data Vital Signs (Past 12 Hours) Vital Signs Temp Pulse Resp BP Pulse Ox O2 Del Method 01/21/24 14:17 97.9 F 16 126/76 92 Room Air 01/21/24 12:35 97.9 F 89 16 137/81 94 Room Air 01/21/24 07:30 Room Air 01/21/24 07:18 98.2 F 86 16 116/72 96 Room Air PG Care Time/CCT Total # of Minutes Spent Total Time Spent with Patient: Total time spent is greater than 50% in coordination of care (as documented) at patient's floor/unit and/or counseling patient: Coding Level of Care Code 62763 SUB INP/OBS CARE 2/35MIN Diagnoses Ambulatory dysfunction R26.2 C2 cervical fracture S12.100A Encounter type: subsequent encounter Fracture alignment: posteriorly displaced Fracture morphology: type II dens Fracture type: closed Uncontrolled type 2 diabetes mellitus with hypoglycemia without coma E11.649 Glycemic state: with hypoglycemia Coma presence: without coma Hypomagnesemia E83.42 Elevated alkaline phosphatase level R74.8 Time Spent (min) 35 (2) C2 cervical fracture Encounter type: subsequent encounter Fracture alignment: posteriorly displaced Fracture morphology: type II dens Fracture type: closed (3) Type 2 diabetes mellitus, uncontrolled Glycemic state: with hypoglycemia Coma presence: without coma Qualified Code(s): E11.649 - Type 2 diabetes mellitus with hypoglycemia without coma
[2024-01-22 07:14] VITALS: BP 114/68; PULSE 85; RESP 16; TEMP 97.9; O2SAT 98
--- NOTE | 2024-01-22 10:40 | Discharge Summary ---
Date of Service January 22, 2024 Admission HPI Per Admitting Provider 73 year old female with a past medical history of DM2, HTN, HLD, depression presenting with concern for weakness after d/c from [facility] this afternoon. She has a C2 fracture requiring surgery in 09/2023, in October she had a fall which resulted in pedicle screw that had entered the spinal canal. This required repeat surgery in [place]. She was discharged to [facility] and then to [facility]. Limited improvement at [facility] and was sent back to [facility]. Today she was discharged from [facility] to home. Lives alone with mother, who is 92. No other family in the area. At home pt was not able to ambulatory and had concerns for falling, which prompted mother to call EMS. Denies fall. Denie new weakness/pain. Admission Exam (Per Admitting) Constitutional The patient is awake, alert and oriented 3, well developed and well nourished, normocephalic and atraumatic, lying in bed and in no acute distress. HEENT--PERRL, EOMI, mucous membranes and oropharynx mildly dry Neck--supple. No JVD. No bruits. Thyroid normal, trachea midline, no adenopathy. Heart--normal S1 and S2. No murmurs, rubs or gallops. Lungs--clear bilaterally, no respiratory distress, no accessory muscle use. Abdomen--normal bowel sounds and soft. Extremities--no cyanosis or clubbing. No edema. Dermatologic--normal skin turgor, normal color, no abnormal lymph nodes, no rash. Neurologic--cranial nerves II through XII grossly intact. Rheumatologic--normal range of motion. Psychiatric--normal affect. Discharge Data Consultations 01/11/24 22:36 ED Decision to Admit Stat Diabetes Follow Up Diabetes Follow Up: Diabetes Follow-up Needed for HgbA1c >9% Hospital Course (1) Ambulatory dysfunction: - in the setting of recent spinal surgery - no new acute findings on exam, not acute worsening, not back to baseline from prior and unable to complete ADLs at home - head CT on admission without acute pathology - Consult PT/OT, recommends rehab Case management working on it (2) C2 cervical fracture: - Plan as per above - complained of some mild neck pain and discomfort (3) Type 2 diabetes mellitus, uncontrolled: -Last hemoglobin a1c= 9.6 06/16. Repeat A1c was 9.1 - continue home Lantus dosing 26 units daily- recently adjusted at [facility], SSI while inpatient - hold metformin , Januvia (4) Hypomagnesemia: - replaced (5) Elevated alkaline phosphatase level: - Alk phos= 619, downtrending from 1020 09/16 - no abdominal symptoms at present - ggt elevated on prior labs with history of biliary stent- replaced 08/2023 Plan Chronic Stable Medical Conditions- HLD- continue statin Depression- continue venlafaxine, BuSpar, Wellbutrin Diet: DM2 Code: Full Dispo: Case management working on placement, hopefully center care. unable to get litter transport today. hopefully tomorrow VTE Prophylaxis: Lovenox Coding Level of Care Code 60506 INP/OBS DISCH >30 MIN Diagnoses Ambulatory dysfunction R26.2 C2 cervical fracture S12.100A Encounter type: subsequent encounter Fracture alignment: posteriorly displaced Fracture morphology: type II dens Fracture type: closed Uncontrolled type 2 diabetes mellitus with hypoglycemia without coma E11.649 Glycemic state: with hypoglycemia Coma presence: without coma Hypomagnesemia E83.42 Elevated alkaline phosphatase level R74.8 Time Spent (min) 35
== END 2024-01-22 10:45 | DRG 93 ==
LOC: ED 18:53 → 3E 21:24 → SUATTDRO 21:24 → 3E 01-12 02:13

== ENCOUNTER 2024-01-31 16:20 | Inpatient (IN) ==
[2024-01-31 17:02] LABS: Appearance Urine Cloudy (Clear); Bacteria Urine Automated 4+ (None Seen); Bilirubin Urine Negative (Negative); Blood Urine Negative (Negative); Color Urine Yellow; Glucose Urine UA 3+ (Negative); Ketones Urine Trace (Negative); Leukocyte Esterase Urine 2+ (Negative); Nitrite Urine Positive (Negative); Protein Urine Negative (Negative); Specific Gravity Urine 1.025 (1.000-1.030); Urobilinogen Urine Negative (Negative); WBC Urine Automated 21-50 /hpf (0-5); pH Urine 5.5 (4.5-7.5)
--- NOTE | 2024-01-31 17:48 | Emergency Department Note ---
Impression & Plan Complicated UTI (urinary tract infection), Sepsis, Hypoglycemia ED Provider Note Name: PAUL PERSON Age: 73 Sex: Female Arrives Via: Ambulance Informant: EMS, nursing staff ED Provider: Bari Swain MD Chief Complaint: Fall and weakness Impression: As per impressions above Medical Decision Makin-year-old female with extensive recent history including cervical fracture and surgery a few months ago. She arrives for evaluation following nursing staff finding her laying on her side in her wheelchair and being more obtunded than typical. Arrives to ER for evaluation. CT of the head and cervical spine reveal no acute findings. Given my concerns for sepsis blood cultures lactic acid were obtained. Urinalysis is consistent with UTI. She was given empiric broad-spectrum antibiotics which given past history cefepime should cover. She is given 1 L normal saline for fluid resuscitation. Lactic acid did return elevated but repeat was fortunately resolved. She is not hypotensive. Procalcitonin mildly elevated. Patient also had acute hypoglycemia. She was given IV dextrose for this as well. Mental status remained stable she is protecting airway. No evidence of trauma to thorax abdomen pelvis. Triage/Nursing Notes reviewed by Me External Chart Review by me: Reviewed recent discharge summary from 01/20/2024. Differential:Infection, dehydration, metabolic abnormality, hypo/hyperglycemia, electrolyte disturbance, anemia, hypoxia, cardiac sources, intracerebral event, toxicologic, neurologic, as well as other pathologies. Sepsis Resuscitation: Patient with UTI, poor mental status, elevated lactic acid consistent with severe sepsis. Patient given 1 L normal saline bolus rather than 30 mL/kg IV fluids as concern for fluid overload. Blood pressure stable throughout. Repeat lactate normalized Sepsis reevaluation: Sepsis reevaluation focused exam completed by me. Exam done at 2029 on 01/31/2024. Patient mental status is a bit improved. Vital signs have been stable with heart rate now in the 80s. Good cap refill. Patient without complaints. Soft abdomen and breathing comfortably. Further fluids are not indicated at this time. Pressors are not indicated at this time. Vital Signs: reviewed and remarkable for mild tachycardia Interventions: Normal saline bolus 1 L IV, dextrose 50 mL IV, cefepime 2 g IV. Labs:ED labs Reviewed by me and remarkable for elevated lactic acid, hypoglycemia Imaging: CT of the head without contrast as per my informal interpretation there is no intracranial hemorrhage or mass effect appreciated. Confirmed by radiologist. CT of the cervical spine as per radiologist chronic ongoing fracture no evidence of new or changed pathology. X ray results are stated below per my interpretation: Chest: 1 view: No infiltrate, no effusion, normal cardiac border. EKG:non as per my interpretation. Indication sepsis. Poor baseline due to tremor. Normal sinus rhythm at 94 beats with a QTc of 445. There is no ectopy nor ischemia. When compared to EKG of January 11, 2024 no significant change. Cardiac/Tele Monitoring: Cardiac Monitoring: An Order was placed for continuous cardiac monitoring. The monitor shows a rate of 90 with a normal sinus rhythm. Consults:Discussed with hospitalist who will further evaluate and manage as inpatient. Plan: Disposition:Hospitalization. Condition: Fair History of Present Illness: 73-year-old female sent from nursing facility due to altered mental status. Patient apparently with concern for UTI and increasing altered mental status of her underlying dementia already. This evening apparently and somehow knocked over wheelchair that she was sitting in laying on her side. No evidence of trauma but fall was unwitnessed. Patient has recent cervical fracture requiring surgery with multiple falls since then. There is report of possible fever as well prior to arrival. No intervention prior to arrival. There is no report of patient currently being on an antibiotic. Past Medical History:See Below Home Medications:See Below Allergies:See Below Vitals:Blood Pressure: 112/66, Pulse 99, RR 19, T 37.4C, O2 97% on RA Physical Exam: GENERAL: Patient is elderly/frail/dehydrated appearing and in mild distress. HEAD: AT/NC NECK: In soft cervical Collar. RESPIRATORY: No dyspnea. Clear to auscultation and equal bilaterally. CARDIOVASCULAR: Tachy.No murmur appreciated. GASTROINTESTINAL: Abdomen soft, non-tender, no peritonitis. EXTREMITIES: Diffuse generalized weakness good pulses sensation intact NEUROLOGIC: Patient does have some evidence of dementia answers some questions weakly. A bit somnolent but at times Awake and looking around the room. No neurodeficits appreciated SKIN: No rash, no jaundice, no diaphoresis. GCS: 15 ED Course: Times/Reassessments: Patient is improved with initial IV fluids. Bari Swain MD Past Med/Surg History Problem List (Updated 02/01/24 @ 11:05 by Bari Swain MD) Hypoglycemia (Acute) Sepsis (Acute) Complicated UTI (urinary tract infection) (Acute) Hypoglycemia associated with type 2 diabetes mellitus Sepsis due to urinary tract infection S/P cervical spinal fusion (Acute) Elevated alkaline phosphatase level Hypomagnesemia Ambulatory dysfunction (Acute) Weakness (Acute) C2 cervical fracture (Acute ~10/10/23) Nondisplaced fractures through the right and left posterior arches of C1 and C2 fracture/displaced type II odontoid fracture C1 cervical fracture (Acute ~10/10/23) Nondisplaced fractures through the right and left posterior arches of C1 and C2 fracture/displaced type II odontoid fracture Bile duct injury Cholecystitis Fall (Acute) Back pain (Acute) Chronic kidney disease Eustachian tube dysfunction Mixed hearing loss, bilateral Acquired deviated nasal septum Balance disorder Sacral back pain Type 2 diabetes mellitus, uncontrolled (Chronic) Diabetic peripheral neuropathy associated with type 2 diabetes mellitus (Chronic) Anxiety Pancreatic cyst (Chronic) [facility] Chronic osteoarthritis (Chronic) Greater trochanteric bursitis Chronic thoracic back pain Lumbar facet joint pain Urinary incontinence (Chronic) Lumbar radiculopathy (Chronic) Gastroparesis (Chronic) Dysesthesia (Chronic) Vitamin D deficiency (Chronic) Medical History Anterolisthesis of lumbar spine Elevated troponin Fall C6 cervical fracture Acute anterior epistaxis Perianal abscess Vitiligo Venous insufficiency (chronic) (peripheral) NSTEMI (non-ST elevated myocardial infarction) Mixed conductive and sensorineural hearing loss of both ears Frequent falls Cardiomyopathy Dyslipidemia Hypertension Hiatal hernia Small GERD (gastroesophageal reflux disease) Depression Surgical History Hx of cardiac cath Mar 2018. Normal coronary arteries. History of total knee replacement RT TKA APPROX 15 YEARS AGO L TKA 01/23/2018 Family History Mother Hypertension Cancer Melanoma Father Breast cancer Cancer Melanoma Family/Other Breast cancer Unknown Osteoarthritis Denies family history of Ovarian cancer Prostate cancer Heart disease Colorectal cancer Lung disease Stroke Asthma Social History Smoking Status: Never smoker Second Hand Exposure: No; Do You Dip or Chew Tobacco: No; Hx Alcohol Use: No Hx Substance Use: No Preferred Language: Divehi Communication Ability: Effective Communication Ability Comment: D/t facial edema from fall pt cannot see well enough to sign documents now Visual Impairment: No Limitations Hearing Ability: Normal Health Informatics Specialist Required: No Beliefs That Will Affect Care: None marital status: Current Living Situation: [facility] Current Living Situation Comment: Home with mother current occupational status: disabled Other Information That Helps Us Care for You: No Feels Safe at Home: Yes Safety Concerns: Feels Safe At This Time Childhood Exposure to Second-Hand Smoke: No Diet: regular caffeine: Yes Dental Care, Regularly: Yes Physical Activity Frequency: 3-4 Times per Week Physical Activity Frequency Comment: walk Seatbelt Use: always Sunscreen Use: No (not in the sun) Do you think of yourself as: straight/heterosexual Assistive Devices: Walker Allergies Allergies Allergy/AdvReac Type Severity Reaction Status Date / Time baclofen AdvReac Intermediate Hallucinati Verified 12/21/23 14:08 ng cyclobenzaprine AdvReac Intermediate Hallucinati Verified 12/21/23 14:08 ng Home Meds Home Medications Medication Instructions Recorded Confirmed cholecalciferol (vitamin D3) 50 2,000 units PO DAILY 11/08/18 12/21/23 mcg (2,000 unit) capsule cyanocobalamin (vitamin B-12) 1,000 mcg PO DAILY 11/08/18 12/21/23 1,000 mcg tablet venlafaxine 150 mg 150 mg PO BID 01/18/22 12/21/23 capsule,extended release 24 hr buspirone 15 mg tablet 30 mg PO BID 03/28/22 12/21/23 bupropion HCl 150 mg tablet,12 hr 300 mg PO DAILY 02/23/23 12/21/23 sustained-release amoxicillin 500 mg capsule 2,000 mg PO DIRECTED PRN 1 HR 03/09/23 12/21/23 PRIOR TO DENTAL PROCEDURES insulin lispro 100 unit/mL See Rx Instructions subcut TID 08/02/23 12/21/23 subcutaneous pen (Humalog KwikPen (U-100) Insulin) albuterol sulfate 90 mcg/actuation 2 puff inhalation Q4H PRN 10/10/23 12/21/23 aerosol inhaler Shortness Of Breath Or Wheezing insulin glargine 100 unit/mL (3 35 unit subcut QPM 10/10/23 12/21/23 mL) subcutaneous pen (Lantus Solostar U-100 Insulin) gabapentin 300 mg capsule 300 mg PO TID 12/21/23 12/21/23 Previous Rx's Medication Instructions Recorded aspirin 81 mg tablet,delayed 81 mg PO DAILY #90 tabs 06/23/19 release metformin 1,000 mg tablet 1,000 mg PO BID #180 tabs 10/24/22 rosuvastatin 20 mg tablet 20 mg PO QAM #90 tabs 10/24/22 esomeprazole magnesium 40 mg 40 mg PO DAILY #90 caps 01/16/23 capsule,delayed release (Nexium) pen needle, diabetic 32 gauge x #400 ea 03/15/23" (BD Ultra-Fine Marleny Pen Needle) blood sugar diagnostic (OneTouch #600 ea 05/10/23 Ultra Test strips) blood-glucose meter #1 ea 08/10/23 acetaminophen 500 mg tablet 1,000 mg (2 x 500 mg) PO TID PRN 11/30/23 pain #90 tabs Results & Data (ED) Vital Signs Vital Signs - 24 hr 01/31/24 16:26 01/31/24 16:27 01/31/24 16:36 Temperature 37.4 C Temperature Source Oral Pulse Rate 99 H 101 H 99 H Pulse Rate from SpO2 Sensor 102 H Respiratory Rate 19 20 23 Respiratory Effort / Characteristics Non-Labored Spontaneous Respiratory Depth Normal Respiratory Pattern Regular Blood Pressure 112/66 Blood Pressure Mean 81 Pulse Oximetry 97 97 Oxygen Delivery Method Room Air Sepsis Recent Fever Within 48 Hours No Sepsis New/Unexplained Change in Mental Status No Sepsis Action Taken by Nursing No Action Required 01/31/24 16:39 01/31/24 17:00 01/31/24 17:36 Temperature Temperature Source Pulse Rate 99 H 97 H 94 H Pulse Rate from SpO2 Sensor Respiratory Rate 21 22 Respiratory Effort / Characteristics Respiratory Depth Respiratory Pattern Blood Pressure 112/66 Blood Pressure Mean 81 Pulse Oximetry 95 Oxygen Delivery Method Sepsis Recent Fever Within 48 Hours Sepsis New/Unexplained Change in Mental Status Sepsis Action Taken by Nursing 01/31/24 18:00 01/31/24 18:03 01/31/24 18:30 Temperature Temperature Source Pulse Rate 94 H 96 H Pulse Rate from SpO2 Sensor 96 H Respiratory Rate 24 24 Respiratory Effort / Characteristics Respiratory Depth Respiratory Pattern Blood Pressure 105/71 138/75 Blood Pressure Mean 82 96 Pulse Oximetry 94 93 Oxygen Delivery Method Room Air Sepsis Recent Fever Within 48 Hours Sepsis New/Unexplained Change in Mental Status Sepsis Action Taken by Nursing Laboratory Data 02/01/24 06:09 02/01/24 06:09 Lab Results 01/31/24 01/31/24 01/31/24 Range/Units 16:35 18:11 18:12 WBC 13.64 H (4.8-10.8) K/ul RBC 4.27 (4.20-5.40) M/uL Hgb 12.6 (12.0-16.0) g/dl Hct 37.5 (37.0-47.0) % MCV 87.8 (80.0-100.0) fL MCH 29.5 (25.0-34.0) pg MCHC 33.6 (32.0-36.0) g/dL RDW Std Deviation 41.8 (36.4-46.3) fL RDW Coeff of Barrett 13.0 (11.5-14.5) % Plt Count 309 (130-400) K/uL MPV 9.6 (9.4-12.4) fL Immature Gran % (Auto) 0.6 % Neut % (Auto) 71.7 % Lymph % (Auto) 16.6 % [place] % (Auto) 7.8 % Eos % (Auto) 2.8 % Baso % (Auto) 0.5 % Neut # (Auto) 9.78 H (1.40-6.50) K/uL Lymph # (Auto) 2.27 (1.20-3.40) K/uL [place] # (Auto) 1.06 H (0.11-0.59) K/uL Eos # (Auto) 0.38 (0.00-0.50) K/uL Baso # (Auto) 0.07 (0.00-0.20) K/uL Immature Gran # (Auto) 0.08 (0.01-0.20) K/uL VBG pH 7.41 (7.36-7.41) VBG pCO2 45 (38-50) mmHg VBG pO2 55 mmHg VBG HCO3 29 mmol/L VBG O2 Saturation 85.6 % VBG Base Excess 3.2 mEq/L Sodium 136 (136-145) mmol/L Potassium 3.9 (3.5-5.1) mmol/L Chloride 98 (98-107) mmol/L Carbon Dioxide 29 (21-32) mmol/L Anion Gap 9 (3-11) BUN 24 H (6-23) mg/dl Creatinine 1.01 (0.6-1.2) mg/dl Est Cr Clr Drug Dosing 46.3 ml/min eGFR 59.15 BUN/Creatinine Ratio 23.8 H (10-20) Glucose 34 L* (70-99(Fasting)) mg/dl POC Glucose (70-99) mg/dl Lactate 2.6 H* (0.4-2.0) mmol/L Calcium 10.5 H (8.6-10.3) mg/dl Magnesium 1.5 L (1.7-2.4) mg/dl Total Bilirubin 0.5 (0.2-1.0) mg/dl Direct Bilirubin 0.1 (0-0.2) mg/dl AST 18 (13-39) U/L ALT 20 (7-52) U/L Alkaline Phosphatase 358 H (34-104) U/L Troponin I High Sens 11.7 (0-14) pg/ml Total Protein 7.5 (6.0-8.3) gm/dl Albumin 3.9 (3.4-5.0) gm/dl Procalcitonin 0.30 (0-0.5) ng/ml Urine Color Yellow Urine Appearance Cloudy A (Clear) Urine pH 5.5 (4.5-7.5) Ur Specific [place] 1.025 (1.000-1.030) Urine Protein Negative (Negative) Urine Glucose (UA) 3+ H (Negative) Urine Ketones Trace H (Negative) Urine Blood Negative (Negative) Urine Nitrite Positive A (Negative) Urine Bilirubin Negative (Negative) Urine Urobilinogen Negative (Negative) Ur Leukocyte Esterase 2+ H (Negative) Urine WBC (Auto) 21-50 H (0-5) /hpf Urine RBC (Auto) 3-5 H (0-2) /hpf U Hyaline Cast (Auto) 3-5 H (0-2) /lpf U Epithel Cells (Auto) 3-5 H (0-2) /hpf Urine Bacteria (Auto) 4+ H (None Seen) 01/31/24 01/31/24 Range/Units 19:11 19:33 WBC (4.8-10.8) K/ul RBC (4.20-5.40) M/uL Hgb (12.0-16.0) g/dl Hct (37.0-47.0) % MCV (80.0-100.0) fL MCH (25.0-34.0) pg MCHC (32.0-36.0) g/dL RDW Std Deviation (36.4-46.3) fL RDW Coeff of Barrett (11.5-14.5) % Plt Count (130-400) K/uL MPV (9.4-12.4) fL Immature Gran % (Auto) % Neut % (Auto) % Lymph % (Auto) % [place] % (Auto) % Eos % (Auto) % Baso % (Auto) % Neut # (Auto) (1.40-6.50) K/uL Lymph # (Auto) (1.20-3.40) K/uL [place] # (Auto) (0.11-0.59) K/uL Eos # (Auto) (0.00-0.50) K/uL Baso # (Auto) (0.00-0.20) K/uL Immature Gran # (Auto) (0.01-0.20) K/uL VBG pH (7.36-7.41) VBG pCO2 (38-50) mmHg VBG pO2 mmHg VBG HCO3 mmol/L VBG O2 Saturation % VBG Base Excess mEq/L Sodium (136-145) mmol/L Potassium (3.5-5.1) mmol/L Chloride (98-107) mmol/L Carbon Dioxide (21-32) mmol/L Anion Gap (3-11) BUN (6-23) mg/dl Creatinine (0.6-1.2) mg/dl Est Cr Clr Drug Dosing ml/min eGFR BUN/Creatinine Ratio (10-20) Glucose (70-99(Fasting)) mg/dl POC Glucose 49 L* 122 H (70-99) mg/dl Lactate (0.4-2.0) mmol/L Calcium (8.6-10.3) mg/dl Magnesium (1.7-2.4) mg/dl Total Bilirubin (0.2-1.0) mg/dl Direct Bilirubin (0-0.2) mg/dl AST (13-39) U/L ALT (7-52) U/L Alkaline Phosphatase (34-104) U/L Troponin I High Sens (0-14) pg/ml Total Protein (6.0-8.3) gm/dl Albumin (3.4-5.0) gm/dl Procalcitonin (0-0.5) ng/ml Urine Color Urine Appearance (Clear) Urine pH (4.5-7.5) Ur Specific [place] (1.000-1.030) Urine Protein (Negative) Urine Glucose (UA) (Negative) Urine Ketones (Negative) Urine Blood (Negative) Urine Nitrite (Negative) Urine Bilirubin (Negative) Urine Urobilinogen (Negative) Ur Leukocyte Esterase (Negative) Urine WBC (Auto) (0-5) /hpf Urine RBC (Auto) (0-2) /hpf U Hyaline Cast (Auto) (0-2) /lpf U Epithel Cells (Auto) (0-2) /hpf Urine Bacteria (Auto) (None Seen) Administered Medications Heparin Sodium (Porcine) (Heparin Sod 5,000 Unit/0.5 Ml Vial) 5,000 units SQ Q12 [facility] Stop: 03/01/24 21:44 Last Admin: 02/01/24 08:17 Dose: 5,000 units Documented By: Admin: 01/31/24 21:49 Dose: 5,000 units Documented By: LUC Cefepime HCl (Maxipime 2000mg) 2,000 mg in 20 mls @ 5 mls/min IV Q12H [facility]; Protocol Stop: 02/11/24 06:59 Last Admin: 02/01/24 06:20 Dose: 5 mls/min Documented By: LUC Sodium Chloride (Nss) 1,000 mls @ 80 mls/hr IV .[id number] [facility] Stop: 02/02/24 06:29 Last Admin: 02/01/24 06:31 Dose: 80 mls/hr Documented By: LUC Insulin Aspart (Insulin Aspart Per Unit Charge) 0 units SC Q6 [facility] Stop: 03/02/24 05:59 Last Admin: 02/01/24 08:17 Dose: 5 units Documented By: ELENA Co-signed By: IZABEL Admin: 02/01/24 04:13 Dose: 9 units Documented By: LUC Co-signed By: JABIER Insulin Glargine (Lantus Per Unit Charge) 20 units SQ QAM [facility] Stop: 03/02/24 08:59 Last Admin: 02/01/24 08:17 Dose: 20 units Documented By: ELENA Co-signed By: IZABEL Discontinued Medications Dextrose (Dextrose 50% 50 Ml Syringe) 50 ml IV NOW ONE Stop: 01/31/24 19:06 Last Admin: 01/31/24 19:15 Dose: 50 ml Documented By: RAFAEL Sodium Chloride (Nss) 1,000 mls @ 999 mls/hr IV .Q1H1M [facility] Stop: 01/31/24 18:45 Last Infusion: 01/31/24 19:37 Dose: Infused Documented By: Admin: 01/31/24 18:34 Dose: 999 mls/hr Documented By: DERICK Cefepime HCl (Maxipime 2000mg) 2,000 mg in 20 mls @ 5 mls/min IV NOW STA; Protocol Stop: 01/31/24 18:52 Last Admin: 01/31/24 19:01 Dose: 5 mls/min Documented By: DERICK Magnesium Sulfate/Dextrose (Magnesium Sulfate / D5w) 1 gm in 100 mls @ 50 mls/hr IV Q2H [facility] Stop: 02/01/24 00:29 Last Infusion: 02/01/24 01:29 Dose: Infused Documented By: Admin: 01/31/24 23:30 Dose: 50 mls/hr Documented By: Infusion: 01/31/24 23:30 Dose: Infused Documented By: Admin: 01/31/24 21:49 Dose: 50 mls/hr Documented By: LUC Potassium Chloride/Dextrose/Sod Cl (D5w And 1/2nss + 20meq Kcl) 20 meq in 1,000 mls @ 80 mls/hr IV .[id number] [facility] Stop: 02/01/24 09:29 Last Infusion: 02/01/24 06:26 Dose: Infused Documented By: Admin: 01/31/24 22:25 Dose: 80 mls/hr Documented By: LUC Insulin Aspart (Insulin Aspart Per Unit Charge) 0 units SC ACHS [facility] Stop: 03/01/24 21:44 Last Admin: 01/31/24 21:49 Dose: Not Given Documented By: LUC Insulin Aspart (Insulin Aspart Per Unit Charge) Confirm Administered Dose 9,000 units .ROUTE .STK-MED ONE Stop: 02/01/24 04:14 Last Admin: 02/01/24 05:08 Dose: Not Given Documented By: LUC Meclizine HCl (Meclizine 12.5 Mg Tab) 12.5 mg PO NOW STA Stop: 02/01/24 00:23 Last Admin: 02/01/24 03:51 Dose: 12.5 mg Documented By: LUC Discharge Plan Visit Data Chief Complaint: Fall Stated Complaint: FALL ED Provider: Bari Swain Discharge Problem: Complicated UTI (urinary tract infection), Sepsis, Hypoglycemia Patient Disposition: Admitted As Inpatient Discharge Instructions Interventions: ED Discharge Assessment Last Done: 01/31/24 21:16 Discharge Problem: Sepsis Qualifiers: Sepsis type: sepsis due to unspecified organism Sepsis acute organ dysfunction status: unspecified Qualified Code(s): A41.9 - Sepsis, unspecified organism
[2024-01-31] MEDS: SODIUM CHLORIDE 0.9% 1,000 ML IV SCH (18:34)
[2024-01-31 18:35] LABS: Base Excess VBG 3.2 mEq/L; HCO3 VBG 29 mmol/L; Oxygen Saturation VBG 85.6 %; PCO2 VBG 45 mmHg (38-50); PO2 VBG 55 mmHg; pH VBG 7.41 (7.36-7.41)
--- NOTE | 2024-01-31 18:37 | CT Scan Report ---
EXAM: CT Head Without Intravenous Contrast INDICATION: Closed head injury TECHNIQUE: Axial computed tomography images of the head/brain without intravenous contrast. Sagittal and/or coronal reformats are provided. Sagittal and coronal reformatted images were created and reviewed. This CT exam was performed using one or more of the following dose reduction techniques: automated exposure control, adjustment of the mA and/or kV according to patient size, and/or use of iterative reconstruction technique. COMPARISON: 01/11/2024 FINDINGS: Limitations: Study significantly limited by proximal cervical hardware and dental fillings. Brain and extra-axial spaces: There is age appropriate cortical atrophy and chronic ischemic periventricular white matter hypodensity. No acute infarct, hemorrhage or mass noted. Bones/joints: No acute changes. Soft tissues: No significant abnormality noted. Vasculature: No acute abnormality noted. Sinuses: Trace mucosal thickening floor of the right maxillary sinus. No sinus fluid. Mastoid air cells: No mastoid effusion. Orbits: No significant abnormality noted. IMPRESSION: Limited as above. Atrophic changes without acute abnormality. ACT 112: Negative or not required by law. Electronically signed by Elizabeth Connell 01-31-2024 6:37 PM
--- NOTE | 2024-01-31 18:43 | CT Scan Report ---
EXAM: CT Cervical Spine Without Intravenous Contrast INDICATION: Closed head injury. TECHNIQUE: Axial computed tomography images of the cervical spine without intravenous contrast. Sagittal and coronal reformatted images were created and reviewed. This CT exam was performed using one or more of the following dose reduction techniques: automated exposure control, adjustment of the mA and/or kV according to patient size, and/or use of iterative reconstruction technique. COMPARISON: 01/11/2024 FINDINGS: Limitations: None. Vertebrae: Ununited completely displaced type II odontoid fracture is unchanged. Posterior C1-C2 fusion hardware intact and well-seated. Stable bone grafting material about the hardware. Stable diffuse facet arthrosis. Stable multilevel spondylosis most notable at C6-C7. No acute fracture. No traumatic subluxation. Stable mild to moderate to space narrowing C4-C5 and C5-C6. Discs/spinal canal/neural foramina: No canal stenosis. There is stable right C3-C4 foraminal stenosis. Soft tissues: No significant abnormality noted. Lung apices: No significant abnormality noted. IMPRESSION: Stable ununited, displaced C2 fracture and degenerative and postoperative changes. No acute abnormality. ACT 112: Negative or not required by law. Electronically signed by Elizabeth Connell 01-31-2024 6:41 PM
[2024-01-31 18:48] LABS: Basophils # (auto) 0.07 K/uL (0.00-0.20); Basophils % (auto) 0.5 %; Eosinophils # (auto) 0.38 K/uL (0.00-0.50); Eosinophils % (auto) 2.8 %; Hematocrit (blood only) 37.5 % (37.0-47.0); Hemoglobin 12.6 g/dl (12.0-16.0); Immature Granulocytes # (auto) 0.08 K/uL (0.01-0.20); Immature Granulocytes % (auto) 0.6 %; Lymphocytes # (auto) 2.27 K/uL (1.20-3.40); Lymphocytes % (auto) 16.6 %; Mean Corpuscular Hemoglobin 29.5 pg (25.0-34.0); Mean Corpuscular Hgb Conc 33.6 g/dL (32.0-36.0); Mean Corpuscular Volume 87.8 fL (80.0-100.0); Mean Platelet Volume 9.6 fL (9.4-12.4); Monocytes # (auto) 1.06 K/uL (0.11-0.59); Monocytes % (auto) 7.8 %; Neutrophils # (auto) 9.78 K/uL (1.40-6.50); Neutrophils % (auto) 71.7 %; Platelet Count 309 K/uL (130-400); RDW Standard Deviation 41.8 fL (36.4-46.3); Red Blood Count 4.27 M/uL (4.20-5.40); White Blood Count 13.64 K/ul (4.8-10.8)
[2024-01-31 19:01] LABS: Albumin Level 3.9 gm/dl (3.4-5.0); BUN Creatinine Ratio 23.8 (10-20); Bilirubin Direct 0.1 mg/dl (0-0.2); Bilirubin,Total 0.5 mg/dl (0.2-1.0); Calcium 10.5 mg/dl (8.6-10.3); Creatinine Clr Calc Pharmacy 46.3 ml/min; Magnesium 1.5 mg/dl (1.7-2.4); Potassium 3.9 mmol/L (3.5-5.1); Total Protein 7.5 gm/dl (6.0-8.3)
[2024-01-31] MEDS: CEFEPIME 2000MG 2,000 MG/20 ML SYR IV STA (19:01)
[2024-01-31 19:04] LABS: Troponin I High Sensitivity 11.7 pg/ml (0-14)
[2024-01-31] MEDS: DEXTROSE 50% 50 ML SYRINGE IV ONE (19:15)
--- NOTE | 2024-01-31 20:18 | XRay Report ---
EXAM: Portable AP chest radiograph TECHNIQUE: AP portable radiograph of the chest was obtained. INDICATION: Shortness of breath Comparison: Chest radiograph January 11, 2024 FINDINGS: LINES and TUBES: None CARDIOVASCULAR: Cardiac silhouette is stably enlarged in size. LUNGS/PLEURA: No focal consolidation identified. No significant pleural fluid. No discernible pneumothorax. OSSEOUS/OTHER: No displaced acute osseous process identified. Catheter like material and surgical clips again seen overlying the right hemiabdomen. IMPRESSION: Unchanged cardiac enlargement. No radiographic evidence of acute cardiopulmonary process detected. Electronically signed by Ismael Ren 01-31-2024 8:18 PM
--- NOTE | 2024-01-31 20:42 | History & Physical Report ---
Date of Service January 31, 2024 Assessment & Plan (1) Sepsis due to urinary tract infection: (2) Hypoglycemia associated with type 2 diabetes mellitus: (3) Dehydration: (4) S/P cervical spinal fusion: (5) Hypomagnesemia: (6) Ambulatory dysfunction: (7) C2 cervical fracture: (8) C1 cervical fracture: Plan Sepsis due to urinary tract infection with dehydration and hypoglycemia- Patient with recent infections to Klebsiella pneumoniae, and MSSA over the past year Continue ceftriaxone 2 g IV every 24 hours begun in the ED Follow urine culture and sensitivities Status post normal saline 1 L bolus in the ED Patient did have hypoglycemia with glucose initially 34, that improved to 122 after 50 mL of D50 Maintenance fluids D5 half-normal saline with KCl 20 mEq at 80 mL/h x 1 L. Holding glargine, checking BSG every 4 hours. Resume glargine once able to eat Hypomagnesemia with magnesium of 1.5, was treated with 2 g of mag sulfate IV, and recheck laboratories in the a.m. Reassessed patient's status after rehydration and treatment of sepsis Limited ability to obtain patient's history and physical, and ROS, due to her present physical condition CT scan of head was negative CT scan cervical spine showed stable ununited displaced C1 and C2 fractures in the postoperative state History of Present Illness Chief Complaint: The patient is brought to the emergency department via ambulance, due to altered mentation Primary Care Provider: Yessi Gray MD The patient is a 73-year-old female with a past medical history of cervical spinal fusion, hypomagnesemia, C1 and C2 cervical fracture on 10/10/2023, CKD, diabetes mellitus type 2, diabetic peripheral neuropathy, gastroparesis and asthma. The patient brought to the emergency department via ambulance, due to confusion. Patient was unable to answer due to altered mentation. Allergies Allergy/AdvReac Type Severity Reaction Status Date / Time baclofen AdvReac Intermediate Hallucinati Verified 12/21/23 14:08 ng cyclobenzaprine AdvReac Intermediate Hallucinati Verified 12/21/23 14:08 ng Home Medications Medication Instructions Recorded Confirmed Type cholecalciferol (vitamin D3) 50 2,000 units PO DAILY 11/08/18 12/21/23 History mcg (2,000 unit) capsule cyanocobalamin (vitamin B-12) 1,000 mcg PO DAILY 11/08/18 12/21/23 History 1,000 mcg tablet aspirin 81 mg tablet,delayed 81 mg PO DAILY #90 tabs 06/23/19 12/21/23 Rx release venlafaxine 150 mg 150 mg PO BID 01/18/22 12/21/23 History capsule,extended release 24 hr buspirone 15 mg tablet 30 mg PO BID 03/28/22 12/21/23 History metformin 1,000 mg tablet 1,000 mg PO BID #180 tabs 10/24/22 12/21/23 Rx rosuvastatin 20 mg tablet 20 mg PO QAM #90 tabs 10/24/22 12/21/23 Rx esomeprazole magnesium 40 mg 40 mg PO DAILY #90 caps 01/16/23 12/21/23 Rx capsule,delayed release (Nexium) bupropion HCl 150 mg tablet,12 hr 300 mg PO DAILY 02/23/23 12/21/23 History sustained-release amoxicillin 500 mg capsule 2,000 mg PO DIRECTED PRN 1 HR 03/09/23 12/21/23 History PRIOR TO DENTAL PROCEDURES pen needle, diabetic 32 gauge x #400 ea 03/15/23 12/21/23 Rx 5/32" (BD Ultra-Fine Marleny Pen Needle) blood sugar diagnostic (OneTouch #600 ea 05/10/23 12/21/23 Rx Ultra Test strips) insulin lispro 100 unit/mL See Rx Instructions subcut TID 08/02/23 12/21/23 History subcutaneous pen (Humalog KwikPen (U-100) Insulin) blood-glucose meter #1 ea 08/10/23 12/21/23 Rx albuterol sulfate 90 mcg/actuation 2 puff inhalation Q4H PRN 10/10/23 12/21/23 History aerosol inhaler Shortness Of Breath Or Wheezing insulin glargine 100 unit/mL (3 35 unit subcut QPM 10/10/23 12/21/23 History mL) subcutaneous pen (Lantus Solostar U-100 Insulin) acetaminophen 500 mg tablet 1,000 mg (2 x 500 mg) PO TID PRN 11/30/23 12/21/23 Rx pain #90 tabs gabapentin 300 mg capsule 300 mg PO TID 12/21/23 12/21/23 History Past Med/Surg History Problem List (Updated 02/01/24 @ 05:23 by Beau Zambrano MD) Hypoglycemia associated with type 2 diabetes mellitus Sepsis due to urinary tract infection S/P cervical spinal fusion (Acute) Elevated alkaline phosphatase level Hypomagnesemia Ambulatory dysfunction (Acute) Weakness (Acute) C2 cervical fracture (Acute ~10/10/23) Nondisplaced fractures through the right and left posterior arches of C1 and C2 fracture/displaced type II odontoid fracture C1 cervical fracture (Acute ~10/10/23) Nondisplaced fractures through the right and left posterior arches of C1 and C2 fracture/displaced type II odontoid fracture Bile duct injury Cholecystitis Fall (Acute) Back pain (Acute) Chronic kidney disease Eustachian tube dysfunction Mixed hearing loss, bilateral Acquired deviated nasal septum Balance disorder Sacral back pain Type 2 diabetes mellitus, uncontrolled (Chronic) Diabetic peripheral neuropathy associated with type 2 diabetes mellitus (C hronic) Anxiety Pancreatic cyst (Chronic) [facility] Chronic osteoarthritis (Chronic) Greater trochanteric bursitis Chronic thoracic back pain Lumbar facet joint pain Urinary incontinence (Chronic) Lumbar radiculopathy (Chronic) Gastroparesis (Chronic) Dysesthesia (Chronic) Vitamin D deficiency (Chronic) Medical History Anterolisthesis of lumbar spine Elevated troponin Fall C6 cervical fracture Acute anterior epistaxis Perianal abscess Vitiligo Venous insufficiency (chronic) (peripheral) NSTEMI (non-ST elevated myocardial infarction) Mixed conductive and sensorineural hearing loss of both ears Frequent falls Cardiomyopathy Dyslipidemia Hypertension Hiatal hernia Small GERD (gastroesophageal reflux disease) Depression Surgical History Hx of cardiac cath Mar 2018. Normal coronary arteries. History of total knee replacement RT TKA APPROX 15 YEARS AGO L TKA 01/23/2018 Family History Mother Hypertension Cancer Melanoma Father Breast cancer Cancer Melanoma Family/Other Breast cancer Unknown Osteoarthritis Denies family history of Ovarian cancer Prostate cancer Heart disease Colorectal cancer Lung disease Stroke Asthma Social History Smoking Status: Never smoker Second Hand Exposure: No; Do You Dip or Chew Tobacco: No; Hx Alcohol Use: No Hx Substance Use: No Preferred Language: Maltese Communication Ability: Effective Communication Ability Comment: D/t facial edema from fall pt cannot see well enough to sign documents now Visual Impairment: No Limitations Hearing Ability: Normal Buzzle Buffer Required: No Beliefs That Will Affect Care: None marital status: Current Living Situation: [facility] Current Living Situation Comment: Home with mother current occupational status: disabled Other Information That Helps Us Care for You: No Feels Safe at Home: Yes Safety Concerns: Feels Safe At This Time Childhood Exposure to Second-Hand Smoke: No Diet: regular caffeine: Yes Dental Care, Regularly: Yes Physical Activity Frequency: 3-4 Times per Week Physical Activity Frequency Comment: walk Seatbelt Use: always Sunscreen Use: No (not in the sun) Do you think of yourself as: straight/heterosexual Assistive Devices: Walker Review of Systems Review of Systems: Review of systems limited due to patient's current mental state Physical Exam Physical Exam: The patient is awake, lethargic, wearing hard collar, lying in bed and in no acute distress. HEENT--PERRL, EOMI, mucous membranes and oropharynx dry. Neck--limited exam due to hard collar. Heart--normal S1 and S2. No murmurs, rubs or gallops. Lungs--clear bilaterally, no respiratory distress, no accessory muscle use. Abdomen--normal bowel sounds and soft. Nontender. Nondistended, no hernias or masses, no organomegaly. Extremities--no cyanosis or clubbing. No edema. Dermatologic--skin is dry Neurologic--cranial nerves II through XII grossly intact. Rheumatologic--normal range of motion. Psychiatric--lethargic Results & Data Results & Data Vital Signs (Past 12 Hours) Vital Signs Temp Pulse Pulse Resp BP BP Pulse Ox 01/31/24 20:38 85 22 115/63 95 01/31/24 18:30 96 H 24 138/75 93 01/31/24 18:03 94 01/31/24 18:00 94 H 24 105/71 01/31/24 17:36 94 H 22 01/31/24 17:00 97 H 21 112/66 95 01/31/24 16:39 99 H 01/31/24 16:36 99 H 23 01/31/24 16:27 101 H 20 97 01/31/24 16:26 37.4 C 99 H 19 112/66 97 O2 Del Method 01/31/24 20:38 Room Air 01/31/24 18:30 01/31/24 18:03 Room Air 01/31/24 18:00 01/31/24 17:36 01/31/24 17:00 01/31/24 16:39 01/31/24 16:36 01/31/24 16:27 01/31/24 16:26 Room Air Laboratory Results Laboratory Results WBC 13.64 K/ul (4.8-10.8) H 01/31/24 18:12 RBC 4.27 M/uL (4.20-5.40) 01/31/24 18:12 Hgb 12.6 g/dl (12.0-16.0) 01/31/24 18:12 Hct 37.5 % (37.0-47.0) 01/31/24 18:12 MCV 87.8 fL (80.0-100.0) 01/31/24 18:12 MCH 29.5 pg (25.0-34.0) 01/31/24 18:12 MCHC 33.6 g/dL (32.0-36.0) 01/31/24 18:12 RDW Std Deviation 41.8 fL (36.4-46.3) 01/31/24 18:12 RDW Coeff of Barrett 13.0 % (11.5-14.5) 01/31/24 18:12 Plt Count 309 K/uL (130-400) 01/31/24 18:12 MPV 9.6 fL (9.4-12.4) 01/31/24 18:12 Immature Gran % (Auto) 0.6 % 01/31/24 18:12 Neut % (Auto) 71.7 % 01/31/24 18:12 Lymph % (Auto) 16.6 % 01/31/24 18:12 Humphreys % (Auto) 7.8 % 01/31/24 18:12 Eos % (Auto) 2.8 % 01/31/24 18:12 Baso % (Auto) 0.5 % 01/31/24 18:12 Neut # (Auto) 9.78 K/uL (1.40-6.50) H 01/31/24 18:12 Lymph # (Auto) 2.27 K/uL (1.20-3.40) 01/31/24 18:12 Humphreys # (Auto) 1.06 K/uL (0.11-0.59) H 01/31/24 18:12 Eos # (Auto) 0.38 K/uL (0.00-0.50) 01/31/24 18:12 Baso # (Auto) 0.07 K/uL (0.00-0.20) 01/31/24 18:12 Immature Gran # (Auto) 0.08 K/uL (0.01-0.20) 01/31/24 18:12 VBG pH 7.41 (7.36-7.41) 01/31/24 18:12 VBG pCO2 45 mmHg (38-50) 01/31/24 18:12 VBG pO2 55 mmHg 01/31/24 18:12 VBG HCO3 29 mmol/L 01/31/24 18:12 VBG O2 Saturation 85.6 % 01/31/24 18:12 VBG Base Excess 3.2 mEq/L 01/31/24 18:12 Sodium 136 mmol/L (136-145) 01/31/24 18:11 Potassium 3.9 mmol/L (3.5-5.1) 01/31/24 18:11 Chloride 98 mmol/L (98-107) 01/31/24 18:11 Carbon Dioxide 29 mmol/L (21-32) 01/31/24 18:11 Anion Gap 9 (3-11) 01/31/24 18:11 BUN 24 mg/dl (6-23) H 01/31/24 18:11 Creatinine 1.01 mg/dl (0.6-1.2) 01/31/24 18:11 Est Cr Clr Drug Dosing 46.3 ml/min 01/31/24 18:11 eGFR 59.15 01/31/24 18:11 BUN/Creatinine Ratio 23.8 (10-20) H 01/31/24 18:11 Glucose 34 mg/dl (70-99(Fasting)) L* 01/31/24 18:11 POC Glucose 393 mg/dl (70-99) H* 02/01/24 05:15 Lactate 1.5 mmol/L (0.4-2.0) 01/31/24 20:49 Calcium 10.5 mg/dl (8.6-10.3) H 01/31/24 18:11 Magnesium 1.5 mg/dl (1.7-2.4) L 01/31/24 18:11 Total Bilirubin 0.5 mg/dl (0.2-1.0) 01/31/24 18:11 Direct Bilirubin 0.1 mg/dl (0-0.2) 01/31/24 18:11 AST 18 U/L (13-39) 01/31/24 18:11 ALT 20 U/L (7-52) 01/31/24 18:11 Alkaline Phosphatase 358 U/L (34-104) H 01/31/24 18:11 Troponin I High Sens 11.7 pg/ml (0-14) 01/31/24 18:11 Total Protein 7.5 gm/dl (6.0-8.3) 01/31/24 18:11 Albumin 3.9 gm/dl (3.4-5.0) 01/31/24 18:11 Procalcitonin 0.30 ng/ml (0-0.5) 01/31/24 18:11 Urine Color Yellow 01/31/24 16:35 Urine Appearance Cloudy (Clear) A 01/31/24 16:35 Urine pH 5.5 (4.5-7.5) 01/31/24 16:35 Ur Specific Marty 1.025 (1.000-1.030) 01/31/24 16:35 Urine Protein Negative (Negative) 01/31/24 16:35 Urine Glucose (UA) 3+ (Negative) H 01/31/24 16:35 Urine Ketones Trace (Negative) H 01/31/24 16:35 Urine Blood Negative (Negative) 01/31/24 16:35 Urine Nitrite Positive (Negative) A 01/31/24 16:35 Urine Bilirubin Negative (Negative) 01/31/24 16:35 Urine Urobilinogen Negative (Negative) 01/31/24 16:35 Ur Leukocyte Esterase 2+ (Negative) H 01/31/24 16:35 Urine WBC (Auto) 21-50 /hpf (0-5) H 01/31/24 16:35 Urine RBC (Auto) 3-5 /hpf (0-2) H 01/31/24 16:35 U Hyaline Cast (Auto) 3-5 /lpf (0-2) H 01/31/24 16:35 U Epithel Cells (Auto) 3-5 /hpf (0-2) H 01/31/24 16:35 Urine Bacteria (Auto) 4+ (None Seen) H 01/31/24 16:35 Nasal Screen MRSA (PCR) Negative (Negative) 02/01/24 00:[address] 01/31/24 17:44 EXAM: CT Cervical Spine Without Intravenous Contrast INDICATION: Closed head injury. TECHNIQUE: Axial computed tomography images of the cervical spine without intravenous contrast. Sagittal and coronal reformatted images were created and reviewed. This CT exam was performed using one or more of the following dose reduction techniques: automated exposure control, adjustment of the mA and/or kV according to patient size, and/or use of iterative reconstruction technique. COMPARISON: 01/11/2024 FINDINGS: Limitations: None. Vertebrae: Ununited completely displaced type II odontoid fracture is unchanged. Posterior C1-C2 fusion hardware intact and well-seated. Stable bone grafting material about the hardware. Stable diffuse facet arthrosis. Stable multilevel spondylosis most notable at C6-C7. No acute fracture. No traumatic subluxation. Stable mild to moderate to space narrowing C4-C5 and C5-C6. Discs/spinal canal/neural foramina: No canal stenosis. There is stable right C3-C4 foraminal stenosis. Soft tissues: No significant abnormality noted. Lung apices: No significant abnormality noted. IMPRESSION: Stable ununited, displaced C2 fracture and degenerative and postoperative changes. No acute abnormality. ACT 112: Negative or not required by law. Electronically signed by Elizabeth Connell 01-31-2024 6:41 PM Chest X-Ray 01/31/24 17:44 EXAM: Portable AP chest radiograph TECHNIQUE: AP portable radiograph of the chest was obtained. INDICATION: Shortness of breath Comparison: Chest radiograph January 11, 2024 FINDINGS: LINES and TUBES: None CARDIOVASCULAR: Cardiac silhouette is stably enlarged in size. LUNGS/PLEURA: No focal consolidation identified. No significant pleural fluid. No discernible pneumothorax. OSSEOUS/OTHER: No displaced acute osseous process identified. Catheter like material and surgical clips again seen overlying the right hemiabdomen. IMPRESSION: Unchanged cardiac enlargement. No radiographic evidence of acute cardiopulmonary process detected. Electronically signed by Ismael Ren 01-31-2024 8:[address] 01/31/24 17:44 EXAM: CT Head Without Intravenous Contrast INDICATION: Closed head injury TECHNIQUE: Axial computed tomography images of the head/brain without intravenous contrast. Sagittal and/or coronal reformats are provided. Sagittal and coronal reformatted images were created and reviewed. This CT exam was performed using one or more of the following dose reduction techniques: automated exposure control, adjustment of the mA and/or kV according to patient size, and/or use of iterative reconstruction technique. COMPARISON: 01/11/2024 FINDINGS: Limitations: Study significantly limited by proximal cervical hardware and dental fillings. Brain and extra-axial spaces: There is age appropriate cortical atrophy and chronic ischemic periventricular white matter hypodensity. No acute infarct, hemorrhage or mass noted. Bones/joints: No acute changes. Soft tissues: No significant abnormality noted. Vasculature: No acute abnormality noted. Sinuses: Trace mucosal thickening floor of the right maxillary sinus. No sinus fluid. Mastoid air cells: No mastoid effusion. Orbits: No significant abnormality noted. IMPRESSION: Limited as above. Atrophic changes without acute abnormality. ACT 112: Negative or not required by law. Electronically signed by Elizabeth Connell 01-31-2024 6:37 PM Code Status & VTE Plan Code Status Full code VTE Prophylaxis Plan VTE Prophylaxis will be ordered: Yes PG Care Time/CCT Total # of Minutes Spent Total Time Spent with Patient: Total time spent is greater than 50% in coordination of care (as documented) at patient's floor/unit and/or counseling patient: Coding Level of Care Code 67937 INT INP/OBS CARE 3/75MIN Diagnoses Sepsis due to urinary tract infection A41.9; N39.0 Hypoglycemia associated with type 2 diabetes mellitus E11.649 Dehydration E86.0 S/P cervical spinal fusion Z98.1 Hypomagnesemia E83.42 Ambulatory dysfunction R26.2 C2 cervical fracture S12.100A Encounter type: subsequent encounter Fracture alignment: posteriorly displaced Fracture morphology: type II dens Fracture type: closed C1 cervical fracture S12.000A Encounter type: subsequent encounter Fracture morphology: unspecified fracture morphology Fracture type: closed (7) C2 cervical fracture Encounter type: subsequent encounter Fracture alignment: posteriorly displaced Fracture morphology: type II dens Fracture type: closed (8) C1 cervical fracture Encounter type: subsequent encounter Fracture morphology: unspecified fracture morphology Fracture type: closed
[2024-01-31] MEDS ORDERED: GLUCAGON FOR INJ 1 MG VIAL SQ PRN (21:33)
[2024-01-31] MEDS ORDERED: ALBUTEROL HFA 8 GM INHALER INH PRN (21:33)
[2024-01-31] MEDS ORDERED: ONDANSETRON INJ 2 MG/ML 2 ML VIAL IV PRN (21:33)
[2024-01-31] MEDS ORDERED: GLUCOSE 10 TAB/TUBE PO PRN (21:33)
[2024-01-31] MEDS ORDERED: GLUCOSE 40% GEL 15 GM TUBE PO PRN (21:33)
[2024-01-31] MEDS: INSULIN ASPART PER UNIT CHARGE SC SCH (21:49)
[2024-01-31] MEDS: HEPARIN SOD 5,000 UNIT/0.5 ML VIAL SQ SCH (21:49)
[2024-01-31] MEDS: MAGNESIUM SULFATE / D5W 1 GM/100 ML BAG IV SCH (21:49)
[2024-01-31] MEDS: D5W AND 1/2NSS + 20MEQ KCL 20 MEQ/1,000 ML BAG IV SCH (22:25)
[2024-01-31] MEDS ORDERED: Nursing to Pharmacy Communication SCH (23:45)
[2024-02-01] MEDS: MECLIZINE 12.5 MG TAB PO STA (03:51)
[2024-02-01] MEDS: INSULIN ASPART PER UNIT CHARGE SC SCH ×2 (04:13→13:07)
[2024-02-01] MEDS: INSULIN ASPART PER UNIT CHARGE ONE (05:08)
[2024-02-01] MEDS: CEFEPIME 2000MG 2,000 MG/20 ML SYR IV SCH (06:20)
[2024-02-01] MEDS: SODIUM CHLORIDE 0.9% 1,000 ML IV SCH (06:31)
[2024-02-01 06:53] LABS: Basophils # (auto) 0.05 K/uL (0.00-0.20); Basophils % (auto) 0.6 %; Eosinophils # (auto) 0.23 K/uL (0.00-0.50); Eosinophils % (auto) 2.6 %; Hematocrit (blood only) 32.6 % (37.0-47.0); Hemoglobin 10.9 g/dl (12.0-16.0); Immature Granulocytes # (auto) 0.05 K/uL (0.01-0.20); Immature Granulocytes % (auto) 0.6 %; Lymphocytes # (auto) 1.16 K/uL (1.20-3.40); Mean Corpuscular Hemoglobin 29.1 pg (25.0-34.0); Mean Corpuscular Hgb Conc 33.4 g/dL (32.0-36.0); Mean Corpuscular Volume 86.9 fL (80.0-100.0); Mean Platelet Volume 9.7 fL (9.4-12.4); Monocytes # (auto) 0.55 K/uL (0.11-0.59); Monocytes % (auto) 6.2 %; Neutrophils # (auto) 6.88 K/uL (1.40-6.50); Platelet Count 225 K/uL (130-400); RDW Coefficient of Variation 12.8 % (11.5-14.5); Red Blood Count 3.75 M/uL (4.20-5.40); White Blood Count 8.92 K/ul (4.8-10.8)
[2024-02-01 07:22] LABS: Albumin Level 3.3 gm/dl (3.4-5.0); BUN Creatinine Ratio 22.4 (10-20); Calcium 9.5 mg/dl (8.6-10.3); Creatinine Clr Calc Pharmacy 47.3 ml/min; Magnesium 1.7 mg/dl (1.7-2.4); Phosphorus 2.2 mg/dl (2.5-4.9)
--- OUTSIDE RECORDS SUMMARY | 2024-02-01 07:35 | External Medical Summary | Summary of Care ---
Author Name Unknown Organization [facility] Address [address] [place] [address] Phone [phone] Care Team Providers Care Flumer Name Role Phone Yessi Gray MD Primary Care Provide r Reason for Visit * Reason Onset Date Comments FYI 01/23/2024 Encounter Details Date Type Department Care Team (Late st Contact Info) Description 01/23/2024 Telephone Access Center, [facility] [address] [facility] *DO NOT REMOVE THIS DEPARTMENT* [place] [address] Services, Scheduling [address] [place] [address] Allergies Active Allergy Reactions Criticality Noted Date Comments Baclofen High 02/23/2023 Other Reaction(s): Hallucinating Cyclobenzaprine High 02/23/2023 Other Reaction(s): Hallucinating documented as of this encounter (statuses as of 01/23/2024) Medications Medication Sig Dispensed Refills Start Date [...] as of this encounter (statuses as of 01/23/2024) Active Problems Problem Noted Date Diagnosed Date JORGE (generalized anxiety disorder) 03/10/2023 Type 2 diabetes mellitus, wi th long-term current use of insulin 03/10/2023 Hyperlipidemia 03/10/2023 GERD (gastroesophageal reflux disease) DEPRESSION RECURRENT( Moderate) 11/29/2005 Nausea with vomiting 12/08/2004 Gastroparesis 11/07/2004 Uterine leiomyoma 03/02/2003 documented as of this encounter (statuses as of 01/23/2024) Resolved Problems Problem Noted Date Diagnosed Date Resolved Date Elevated LFTs 03/11/2023 03/23/2023 Acute cholecystitis 03/10/2023 03/23/20 23 documented as of this encounter (statuses as of 01/23/2024) Social History Tobacco Use Types Packs/Day Years [...] Telephone Encounter - Nita Kirkland OSA - 01/23/2024 11:44 AM EDT Ercp 04/01 * Telephone Encounter - Belinda Pratt OSA - 01/23/2024 8:31 AM EDT Aruna called on patients behalf, Sole is now in the care of [facility], address and number updated on file. Patient had procedure on 09/20/[address] Lopez, with recommendation :Repeat ERCP in 3 months to exchange stent . Facility will be giving a call back once transportation can be arranged for patient care. Thank you documented in this encounter Plan of Treatment Upcoming Encounters Date Type Department Care Team (Latest Contact Info) Description 04/01/2024 1:17 PM EST Hospital Encounter OR GL, Operating Room, [facility] - 4th Floor [address] [place] [phone] Hank Lopez MD [address] [facility] [place] [id number] 04/01/2024 1:17 PM EST - 04/01/2024 1:56 PM EST Surgery OR [facility], Operating Room, [facility] - 4th Floor [address] [place] [phone] Hank Lopez MD [address] [place] [id number] ENDOSCOPIC RETROGRADE CHOLANGIOPANCREATOGRAPHY (ERCP) W/STENT REMOVAL AND EXCHANGE; INC DILATION, GUIDE WIRE AND SPHINCTEROTOMY Scheduled Procedures Name Priority Associated Diagnoses Date/Ti me ENDOSCOPIC RETROGRADE CHOLANGIOPANCREATOGRAPHY (ERCP) W/STENT REMOVAL AND EXCHANGE; INC DILATION, GUIDE WIRE AND SPHINCTEROTOMY Encounter for removal of biliary stent 04/01/2024 1:17 PM EST Health Maintenance Due Date Last Done Comments [...] history exists HbA1c 05/13/2024 11/11/2023, 03/10/2023 GFR 01/06/2025 01/07/2024, 09/2023, 11/17/2023, Additional history exists Pneumococcal Vaccine: 65+ Years [...] this encounter Medical Devices Implanted Type Area Side Stitcher Device Identifier Shelf Expiration Date Model / Serial / Lot Balloon Rx Hurcan 6-4x5.8 4592 - [id number] Implanted:Qty: 1 on 03/14/2023 by Juan Nguyen DO at ENDOSCOPY [facility] [employer] : ENDOSCOPY [id number] 01/11/2025 [id number] / / [id number] Cath Drainage 12fr [id number] - [id number] Implanted:Qty: 1 on 03/21/2023 at [facility] : INTRV RAD 12/26/2025 [id number] / / [id number] Catheter 0.035in 5.2nai303qb [id number] Balln Dilatation Rapid - [id number] Implanted:Qty: 1 on 04/26/2023 by Mark Morton MD at ENDOSCOPY [facility] [employer] : ENDOSCOPY [id number] 10/22/2024 [id number] / / [id number] Stent Advanix Bili Db 7fr 12cm - [id number] Implanted:Qty: 1 on 09/20/2023 by Hank Lopez MD at OR [facility] [employer] : ENDOSCOPY [id number] 02/27/2025 [id number] / / [id number] Stent Advanix Bili Db 7fr 12cm - [id number] Implanted:Qty: 1 on 09/20/2023 by Hank Lopez MD at OR [facility] [employer] : ENDOSCOPY [id number] 10/08/2024 [id number] / / [id number] documented as of this encounter Advance Directives * Full Code (Latest Code Status on File) Date Activated Date Inactivated Comments 03/09/2023 11:44 PM 03/23/2023 6:37 PM This orde r reflects the patients wishes and were consensually agreed upon. Question Answer Comments Discussion of Advance Directives occurred with: Patient Care Teams Flumer Relationship Specialty Start Date End Date Yessi Gray MD [address] [place] [address] PCP - General Internal Medicine 03/09/23 documented as of this encounter
[2024-02-01] MEDS: LANTUS PER UNIT CHARGE SQ SCH (08:17)
[2024-02-01] MEDS ORDERED: Nursing to Pharmacy Communication SCH (12:45)
--- NOTE | 2024-02-01 13:27 | Electrocardiogram Report ---
Test Reason : Blood Pressure : */* mmHG Vent. Rate : 94 BPM Atrial Rate : 94 BPM P-R Int : 166 ms QRS Dur : 74 ms QT Int : 356 ms P-R-T Axes : 64 -11 24 degrees QTcB Int : 445 ms Normal sinus rhythm Low voltage QRS Inferior infarct (cited on or before 11-Jan-2024) Cannot rule out Anterior infarct , age undetermined Abnormal ECG When compared with ECG of 11-Jan-2024 19:21, Minimal criteria for Anterior infarct are now Present Questionable change in initial forces of Inferior leads Nonspecific T wave abnormality now evident in Anterior leads Confirmed by Cody Moreau ([id number]) on 02/01/2024 1:26:52 PM Referred By: REFERRED SELF Confirmed By: Cody Moreau
--- NOTE | 2024-02-01 15:26 | Hospitalist Progress Note ---
Date of Service February 01, 2024 Assessment & Plan (1) Sepsis due to urinary tract infection: (2) Hypoglycemia associated with type 2 diabetes mellitus: (3) Dehydration: (4) S/P cervical spinal fusion: (5) Hypomagnesemia: (6) Ambulatory dysfunction: (7) C2 cervical fracture: (8) C1 cervical fracture: Plan Sepsis due to urinary tract infection with dehydration and hypoglycemia- Patient with recent infections to Klebsiella pneumoniae, and MSSA over the past year Urinalysis is suggestive of UTI Continue ceftriaxone 2 g IV every 24 hours begun in the ED Follow urine culture and sensitivities White count improved Hypoglycemia in a diabetic patient No more hypoglycemic Resume Lantus at 20 units every morning Carb consistent diet Magnesium replaced Metabolic encephalopathy Secondary to UTI CT scan of head was negative CT scan cervical spine showed stable ununited displaced C1 and C2 fractures in the postoperative state Admission and Anticipated Discharge Date Admission Date: January 31, 2024 Subjective Patient was seen and examined at 11:05 AM. Patient does not seem to have any major complaints. Denied any pain. Review of Systems Review of Systems: All systems reviewed & are unremarkable except as noted in Subjective Physical Exam Physical Exam: General: Awake, appears slightly restless and fidgety. Observed to be pulling on her monitor. Heart: S1, S2/regular rate and rhythm, no murmur rubs or gallops Lungs: Clear to auscultation bilaterally. Normal effort Abdomen: Soft/nontender/nondistended. No hepatosplenomegaly Extremities: No clubbing/cyanosis. No edema Behavior: Appropriate, cooperative Results & Data Results & Data Vital Signs (Past 12 Hours) Vital Signs Temp Pulse Pulse Resp BP Pulse Ox O2 Del Method 02/01/24 15:18 85 02/01/24 14:33 36.3 C L 86 18 110/67 97 Room Air 02/01/24 10:59 36.7 C 88 18 110/66 95 Room Air 02/01/24 08:00 88 02/01/24 07:25 36.4 C L 87 16 125/71 96 Room Air Laboratory Results Abnormal lab results 01/31/24 01/31/24 01/31/24 Range/Units 16:35 18:11 18:12 WBC 13.64 H (4.8-10.8) K/ul RBC (4.20-5.40) M/uL Hgb (12.0-16.0) g/dl Hct (37.0-47.0) % Neut # (Auto) 9.78 H (1.40-6.50) K/uL Lymph # (Auto) (1.20-3.40) K/uL [place] # (Auto) 1.06 H (0.11-0.59) K/uL Sodium (136-145) mmol/L BUN 24 H (6-23) mg/dl BUN/Creatinine Ratio 23.8 H (10-20) Glucose 34 L* (70-99(Fasting)) mg/dl POC Glucose (70-99) mg/dl Lactate 2.6 H* (0.4-2.0) mmol/L Calcium 10.5 H (8.6-10.3) mg/dl Phosphorus (2.5-4.9) mg/dl Magnesium 1.5 L (1.7-2.4) mg/dl Alkaline Phosphatase 358 H (34-104) U/L Albumin (3.4-5.0) gm/dl Urine Appearance Cloudy A (Clear) Urine Glucose (UA) 3+ H (Negative) Urine Ketones Trace H (Negative) Urine Nitrite Positive A (Negative) Ur Leukocyte Esterase 2+ H (Negative) Urine WBC (Auto) 21-50 H (0-5) /hpf Urine RBC (Auto) 3-5 H (0-2) /hpf U Hyaline Cast (Auto) 3-5 H (0-2) /lpf U Epithel Cells (Auto) 3-5 H (0-2) /hpf Urine Bacteria (Auto) 4+ H (None Seen) 01/31/24 01/31/24 01/31/24 Range/Units 19:11 19:33 20:43 WBC (4.8-10.8) K/ul RBC (4.20-5.40) M/uL Hgb (12.0-16.0) g/dl Hct (37.0-47.0) % Neut # (Auto) (1.40-6.50) K/uL Lymph # (Auto) (1.20-3.40) K/uL [place] # (Auto) (0.11-0.59) K/uL Sodium (136-145) mmol/L BUN (6-23) mg/dl BUN/Creatinine Ratio (10-20) Glucose (70-99(Fasting)) mg/dl POC Glucose 49 L* 122 H 149 H (70-99) mg/dl Lactate (0.4-2.0) mmol/L Calcium (8.6-10.3) mg/dl Phosphorus (2.5-4.9) mg/dl Magnesium (1.7-2.4) mg/dl Alkaline Phosphatase (34-104) U/L Albumin (3.4-5.0) gm/dl Urine Appearance (Clear) Urine Glucose (UA) (Negative) Urine Ketones (Negative) Urine Nitrite (Negative) Ur Leukocyte Esterase (Negative) Urine WBC (Auto) (0-5) /hpf Urine RBC (Auto) (0-2) /hpf U Hyaline Cast (Auto) (0-2) /lpf U Epithel Cells (Auto) (0-2) /hpf Urine Bacteria (Auto) (None Seen) 01/31/24 02/01/24 02/01/24 Range/Units 23:46 04:03 05:13 WBC (4.8-10.8) K/ul RBC (4.20-5.40) M/uL Hgb (12.0-16.0) g/dl Hct (37.0-47.0) % Neut # (Auto) (1.40-6.50) K/uL Lymph # (Auto) (1.20-3.40) K/uL [place] # (Auto) (0.11-0.59) K/uL Sodium (136-145) mmol/L BUN (6-23) mg/dl BUN/Creatinine Ratio (10-20) Glucose (70-99(Fasting)) mg/dl POC Glucose 294 H 420 H* 377 H* (70-99) mg/dl Lactate (0.4-2.0) mmol/L Calcium (8.6-10.3) mg/dl Phosphorus (2.5-4.9) mg/dl Magnesium (1.7-2.4) mg/dl Alkaline Phosphatase (34-104) U/L Albumin (3.4-5.0) gm/dl Urine Appearance (Clear) Urine Glucose (UA) (Negative) Urine Ketones (Negative) Urine Nitrite (Negative) Ur Leukocyte Esterase (Negative) Urine WBC (Auto) (0-5) /hpf Urine RBC (Auto) (0-2) /hpf U Hyaline Cast (Auto) (0-2) /lpf U Epithel Cells (Auto) (0-2) /hpf Urine Bacteria (Auto) (None Seen) 02/01/24 02/01/24 02/01/24 Range/Units 05:15 06:09 06:15 WBC (4.8-10.8) K/ul RBC 3.75 L (4.20-5.40) M/uL Hgb 10.9 L (12.0-16.0) g/dl Hct 32.6 L (37.0-47.0) % Neut # (Auto) 6.88 H (1.40-6.50) K/uL Lymph # (Auto) 1.16 L (1.20-3.40) K/uL [place] # (Auto) (0.11-0.59) K/uL Sodium 133 L (136-145) mmol/L BUN (6-23) mg/dl BUN/Creatinine Ratio 22.4 H (10-20) Glucose 367 H* (70-99(Fasting)) mg/dl POC Glucose 393 H* 369 H* (70-99) mg/dl Lactate (0.4-2.0) mmol/L Calcium (8.6-10.3) mg/dl Phosphorus 2.2 L (2.5-4.9) mg/dl Magnesium (1.7-2.4) mg/dl Alkaline Phosphatase (34-104) U/L Albumin 3.3 L (3.4-5.0) gm/dl Urine Appearance (Clear) Urine Glucose (UA) (Negative) Urine Ketones (Negative) Urine Nitrite (Negative) Ur Leukocyte Esterase (Negative) Urine WBC (Auto) (0-5) /hpf Urine RBC (Auto) (0-2) /hpf U Hyaline Cast (Auto) (0-2) /lpf U Epithel Cells (Auto) (0-2) /hpf Urine Bacteria (Auto) (None Seen) 02/01/24 02/01/24 Range/Units 07:24 11:06 WBC (4.8-10.8) K/ul RBC (4.20-5.40) M/uL Hgb (12.0-16.0) g/dl Hct (37.0-47.0) % Neut # (Auto) (1.40-6.50) K/uL Lymph # (Auto) (1.20-3.40) K/uL [place] # (Auto) (0.11-0.59) K/uL Sodium (136-145) mmol/L BUN (6-23) mg/dl BUN/Creatinine Ratio (10-20) Glucose (70-99(Fasting)) mg/dl POC Glucose 310 H* 208 H (70-99) mg/dl Lactate (0.4-2.0) mmol/L Calcium (8.6-10.3) mg/dl Phosphorus (2.5-4.9) mg/dl Magnesium (1.7-2.4) mg/dl Alkaline Phosphatase (34-104) U/L Albumin (3.4-5.0) gm/dl Urine Appearance (Clear) Urine Glucose (UA) (Negative) Urine Ketones (Negative) Urine Nitrite (Negative) Ur Leukocyte Esterase (Negative) Urine WBC (Auto) (0-5) /hpf Urine RBC (Auto) (0-2) /hpf U Hyaline Cast (Auto) (0-2) /lpf U Epithel Cells (Auto) (0-2) /hpf Urine Bacteria (Auto) (None Seen) Diagnostic Findings Cervical Spine CT 01/31/24 17:44 EXAM: CT Cervical Spine Without Intravenous Contrast INDICATION: Closed head injury. TECHNIQUE: Axial computed tomography images of the cervical spine without intravenous contrast. Sagittal and coronal reformatted images were created and reviewed. This CT exam was performed using one or more of the following dose reduction techniques: automated exposure control, adjustment of the mA and/or kV according to patient size, and/or use of iterative reconstruction technique. COMPARISON: 01/11/2024 FINDINGS: Limitations: None. Vertebrae: Ununited completely displaced type II odontoid fracture is unchanged. Posterior C1-C2 fusion hardware intact and well-seated. Stable bone grafting material about the hardware. Stable diffuse facet arthrosis. Stable multilevel spondylosis most notable at C6-C7. No acute fracture. No traumatic subluxation. Stable mild to moderate to space narrowing C4-C5 and C5-C6. Discs/spinal canal/neural foramina: No canal stenosis. There is stable right C3-C4 foraminal stenosis. Soft tissues: No significant abnormality noted. Lung apices: No significant abnormality noted. IMPRESSION: Stable ununited, displaced C2 fracture and degenerative and postoperative changes. No acute abnormality. ACT 112: Negative or not required by law. Electronically signed by Elizabeth Connell 01-31-2024 6:41 PM Chest X-Ray 01/31/24 17:44 EXAM: Portable AP chest radiograph TECHNIQUE: AP portable radiograph of the chest was obtained. INDICATION: Shortness of breath Comparison: Chest radiograph January 11, 2024 FINDINGS: LINES and TUBES: None CARDIOVASCULAR: Cardiac silhouette is stably enlarged in size. LUNGS/PLEURA: No focal consolidation identified. No significant pleural fluid. No discernible pneumothorax. OSSEOUS/OTHER: No displaced acute osseous process identified. Catheter like material and surgical clips again seen overlying the right hemiabdomen. IMPRESSION: Unchanged cardiac enlargement. No radiographic evidence of acute cardiopulmonary process detected. Electronically signed by Ismael Ren 01-31-2024 8:[address] 01/31/24 17:44 EXAM: CT Head Without Intravenous Contrast INDICATION: Closed head injury TECHNIQUE: Axial computed tomography images of the head/brain without intravenous contrast. Sagittal and/or coronal reformats are provided. Sagittal and coronal reformatted images were created and reviewed. This CT exam was performed using one or more of the following dose reduction techniques: automated exposure control, adjustment of the mA and/or kV according to patient size, and/or use of iterative reconstruction technique. COMPARISON: 01/11/2024 FINDINGS: Limitations: Study significantly limited by proximal cervical hardware and dental fillings. Brain and extra-axial spaces: There is age appropriate cortical atrophy and chronic ischemic periventricular white matter hypodensity. No acute infarct, hemorrhage or mass noted. Bones/joints: No acute changes. Soft tissues: No significant abnormality noted. Vasculature: No acute abnormality noted. Sinuses: Trace mucosal thickening floor of the right maxillary sinus. No sinus fluid. Mastoid air cells: No mastoid effusion. Orbits: No significant abnormality noted. IMPRESSION: Limited as above. Atrophic changes without acute abnormality. ACT 112: Negative or not required by law. Electronically signed by Elizabeth Connell 01-31-2024 6:37 PM PG Care Time/CCT Total # of Minutes Spent Total Time Spent with Patient: Total time spent is greater than 50% in coordination of care (as documented) at patient's floor/unit and/or counseling patient: Coding Level of Care Code 65681 SUB INP/OBS CARE 35MIN Diagnoses Sepsis due to urinary tract infection A41.9; N39.0 Hypoglycemia associated with type 2 diabetes mellitus E11.649 Dehydration E86.0 S/P cervical spinal fusion Z98.1 Hypomagnesemia E83.42 Ambulatory dysfunction R26.2 C2 cervical fracture S12.100A Encounter type: subsequent encounter Fracture alignment: posteriorly displaced Fracture morphology: type II dens Fracture type: closed C1 cervical fracture S12.000A Encounter type: subsequent encounter Fracture morphology: unspecified fracture morphology Fracture type: closed (7) C2 cervical fracture Encounter type: subsequent encounter Fracture alignment: posteriorly displaced Fracture morphology: type II dens Fracture type: closed (8) C1 cervical fracture Encounter type: subsequent encounter Fracture morphology: unspecified fracture morphology Fracture type: closed
[2024-02-01] MEDS: NYSTATIN CR 15 GM TUBE EXT SCH (19:32)
[2024-02-02 06:53] LABS: Basophils # (auto) 0.08 K/uL (0.00-0.20); Basophils % (auto) 1.2 %; Eosinophils # (auto) 0.29 K/uL (0.00-0.50); Eosinophils % (auto) 4.4 %; Hemoglobin 11.9 g/dl (12.0-16.0); Immature Granulocytes # (auto) 0.04 K/uL (0.01-0.20); Immature Granulocytes % (auto) 0.6 %; Lymphocytes % (auto) 16.6 %; Mean Corpuscular Hemoglobin 29.2 pg (25.0-34.0); Mean Corpuscular Hgb Conc 33.1 g/dL (32.0-36.0); Mean Corpuscular Volume 88.5 fL (80.0-100.0); Mean Platelet Volume 9.3 fL (9.4-12.4); Monocytes # (auto) 0.43 K/uL (0.11-0.59); Monocytes % (auto) 6.5 %; Neutrophils # (auto) 4.68 K/uL (1.40-6.50); Neutrophils % (auto) 70.7 %; Platelet Count 195 K/uL (130-400); RDW Coefficient of Variation 12.7 % (11.5-14.5); RDW Standard Deviation 41.1 fL (36.4-46.3); Red Blood Count 4.07 M/uL (4.20-5.40); White Blood Count 6.62 K/ul (4.8-10.8)
[2024-02-02 07:21] LABS: Albumin Level 3.3 gm/dl (3.4-5.0); BUN Creatinine Ratio 16.5 (10-20); Calcium 9.4 mg/dl (8.6-10.3); Magnesium 1.3 mg/dl (1.7-2.4); Phosphorus 3.2 mg/dl (2.5-4.9); Potassium 4.2 mmol/L (3.5-5.1)
[2024-02-02] MEDS: LANTUS PER UNIT CHARGE SQ STA (12:38)
--- NOTE | 2024-02-02 14:52 | Hospitalist Progress Note ---
Date of Service February 02, 2024 Assessment & Plan (1) Sepsis due to urinary tract infection: (2) Hypoglycemia associated with type 2 diabetes mellitus: (3) Dehydration: (4) S/P cervical spinal fusion: (5) Hypomagnesemia: (6) Ambulatory dysfunction: (7) C2 cervical fracture: (8) C1 cervical fracture: Plan Sepsis due to urinary tract infection with dehydration and hypoglycemia- Patient with recent infections to Klebsiella pneumoniae, and MSSA over the past year Urinalysis is suggestive of UTI but urine culture not growing anything. Continue ceftriaxone 2 g IV every 24 hours since there is clinical improvement White count improved Hypoglycemia in a diabetic patient No more hypoglycemic Resume Lantus at a lower dose but is hyperglycemic today. Will increase to Lantus 30 units every morning which is lower than her usual 35 units. Carb consistent diet Magnesium replaced Metabolic encephalopathy Secondary to UTI and hypoglycemia CT scan of head was negative CT scan cervical spine showed stable ununited displaced C1 and C2 fractures in the postoperative state Admission and Anticipated Discharge Date Admission Date: January 31, 2024 Subjective Patient was seen at 9:35 AM. She denied any chest pain or shortness of breath. She says that her brain was foggy and is starting to clear up. Review of Systems Review of Systems: All systems reviewed & are unremarkable except as noted in Subjective Physical Exam Physical Exam: General: Awake, conversant. Not fidgety today. Appears relaxed. Heart: S1, S2/regular rate and rhythm, no murmur rubs or gallops Lungs: Clear to auscultation bilaterally. Normal effort Abdomen: Soft/nontender/nondistended. No hepatosplenomegaly Extremities: No clubbing/cyanosis. No edema Behavior: Appropriate, cooperative Results & Data Results & Data Vital Signs (Past 12 Hours) Vital Signs Temp Pulse Resp BP Pulse Ox O2 Del Method 02/02/24 07:43 36.6 C 77 18 125/79 97 Room Air Laboratory Results Abnormal lab results 02/01/24 02/01/24 02/02/24 Range/Units 16:16 20:35 06:34 RBC 4.07 L (4.20-5.40) M/uL Hgb 11.9 L (12.0-16.0) g/dl Hct 36.0 L (37.0-47.0) % MPV 9.3 L (9.4-12.4) fL Lymph # (Auto) 1.10 L (1.20-3.40) K/uL Glucose 281 H (70-99(Fasting)) mg/dl POC Glucose 171 H 190 H (70-99) mg/dl Magnesium 1.3 L (1.7-2.4) mg/dl Albumin 3.3 L (3.4-5.0) gm/dl 02/02/24 02/02/24 02/02/24 Range/Units 07:45 07:46 11:55 RBC (4.20-5.40) M/uL Hgb (12.0-16.0) g/dl Hct (37.0-47.0) % MPV (9.4-12.4) fL Lymph # (Auto) (1.20-3.40) K/uL Glucose (70-99(Fasting)) mg/dl POC Glucose 302 H* 270 H 363 H* (70-99) mg/dl Magnesium (1.7-2.4) mg/dl Albumin (3.4-5.0) gm/dl 02/02/24 Range/Units 11:56 RBC (4.20-5.40) M/uL Hgb (12.0-16.0) g/dl Hct (37.0-47.0) % MPV (9.4-12.4) fL Lymph # (Auto) (1.20-3.40) K/uL Glucose (70-99(Fasting)) mg/dl POC Glucose 331 H* (70-99) mg/dl Magnesium (1.7-2.4) mg/dl Albumin (3.4-5.0) gm/dl PG Care Time/CCT Total # of Minutes Spent Total Time Spent with Patient: Total time spent is greater than 50% in coordination of care (as documented) at patient's floor/unit and/or counseling patient: Coding Level of Care Code 18510 SUB INP/OBS CARE 2/35MIN Diagnoses Sepsis due to urinary tract infection A41.9; N39.0 Hypoglycemia associated with type 2 diabetes mellitus E11.649 Dehydration E86.0 S/P cervical spinal fusion Z98.1 Hypomagnesemia E83.42 Ambulatory dysfunction R26.2 C2 cervical fracture S12.100A Encounter type: subsequent encounter Fracture alignment: posteriorly displaced Fracture morphology: type II dens Fracture type: closed C1 cervical fracture S12.000A Encounter type: subsequent encounter Fracture morphology: unspecified fracture morphology Fracture type: closed (7) C2 cervical fracture Encounter type: subsequent encounter Fracture alignment: posteriorly dis placed Fracture morphology: type II dens Fracture type: closed (8) C1 cervical fracture Encounter type: subsequent encounter Fracture morphology: unspecified fracture morphology Fracture type: closed
[2024-02-03 06:31] LABS: Basophils # (auto) 0.09 K/uL (0.00-0.20); Eosinophils # (auto) 0.33 K/uL (0.00-0.50); Eosinophils % (auto) 3.6 %; Hematocrit (blood only) 36.9 % (37.0-47.0); Hemoglobin 12.8 g/dl (12.0-16.0); Immature Granulocytes # (auto) 0.04 K/uL (0.01-0.20); Immature Granulocytes % (auto) 0.4 %; Lymphocytes # (auto) 1.51 K/uL (1.20-3.40); Lymphocytes % (auto) 16.4 %; Mean Corpuscular Hemoglobin 29.7 pg (25.0-34.0); Mean Corpuscular Hgb Conc 34.7 g/dL (32.0-36.0); Mean Corpuscular Volume 85.6 fL (80.0-100.0); Mean Platelet Volume 9.8 fL (9.4-12.4); Monocytes # (auto) 0.67 K/uL (0.11-0.59); Monocytes % (auto) 7.3 %; Neutrophils # (auto) 6.55 K/uL (1.40-6.50); Neutrophils % (auto) 71.3 %; Platelet Count 245 K/uL (130-400); RDW Coefficient of Variation 12.6 % (11.5-14.5); RDW Standard Deviation 39.3 fL (36.4-46.3); Red Blood Count 4.31 M/uL (4.20-5.40); White Blood Count 9.19 K/ul (4.8-10.8)
[2024-02-03 07:02] LABS: Albumin Level 3.5 gm/dl (3.4-5.0); BUN Creatinine Ratio 21.7 (10-20); Calcium 10.1 mg/dl (8.6-10.3); Creatinine Clr Calc Pharmacy 67.2 ml/min; Magnesium 1.3 mg/dl (1.7-2.4); Phosphorus 3.3 mg/dl (2.5-4.9); Potassium 4.1 mmol/L (3.5-5.1)
[2024-02-03] MEDS: LANTUS PER UNIT CHARGE SQ SCH (08:06)
[2024-02-03] MEDS ORDERED: LANTUS PER UNIT CHARGE SQ SCH (09:00)
[2024-02-03] MEDS ORDERED: PHARMACY GLYCEMIC MGMT CONSULT PRN (12:12)
[2024-02-03] MEDS ORDERED: DEXTROSE 50% 50 ML SYRINGE IV PRN (12:12)
[2024-02-03] MEDS: cephALEXin 500 MG CAP PO SCH (13:04)
--- NOTE | 2024-02-03 14:58 | Hospitalist Progress Note ---
Date of Service February 03, 2024 Assessment & Plan (1) Sepsis due to urinary tract infection: (2) Hypoglycemia associated with type 2 diabetes mellitus: (3) Dehydration: (4) S/P cervical spinal fusion: (5) Hypomagnesemia: (6) Ambulatory dysfunction: (7) C2 cervical fracture: (8) C1 cervical fracture: Plan Sepsis due to urinary tract infection with dehydration and hypoglycemia- Patient with recent infections to Klebsiella pneumoniae, and MSSA over the past year Urinalysis is suggestive of UTI but urine culture not growing anything. Ceftriaxone switched to Keflex since there is clinical improvement White count improved Hypoglycemia in a diabetic patient No more hypoglycemic Resume Lantus at a lower dose but is hyperglycemic today. Will increase to Lantus 30 units every morning which is lower than her usual 35 units. Carb consistent diet Magnesium replaced Metabolic encephalopathy Secondary to UTI and hypoglycemia CT scan of head was negative CT scan cervical spine showed stable ununited displaced C1 and C2 fractures in the postoperative state Patient appears to be repeating herself today. Appeared to be tired and anxious. Allowed her to sleep. Asked the nurse to inform me if she continues to be repeating herself. May repeat a CT brain. Hold discharge today Hypomagnesemia Replete Likely discharge tomorrow 02/03 if encephalopathy improved. Admission and Anticipated Discharge Date Admission Date: January 31, 2024 Subjective Patient was seen and examined at 9:15 AM. She was noted to be slightly confused, repeating herself. Review of Systems Review of Systems: All systems reviewed & are unremarkable except as noted in Subjective Physical Exam Physical Exam: General: Awake, conversant. Noted to be repeating herself. Appeared slightly anxious. Heart: S1, S2/regular rate and rhythm, no murmur rubs or gallops Lungs: Clear to auscultation bilaterally. Normal effort Abdomen: Soft/nontender/nondistended. No hepatosplenomegaly Extremities: No clubbing/cyanosis. No edema Behavior: Appropriate, cooperative Results & Data Results & Data Vital Signs (Past 12 Hours) Vital Signs Temp Pulse Resp BP Pulse Ox O2 Del Method 02/03/24 14:43 36.6 C 93 H 18 132/85 96 Room Air 02/03/24 07:21 36.6 C 89 18 106/72 97 Room Air 02/03/24 07:00 Room Air Laboratory Results Abnormal lab results 02/02/24 02/02/24 02/03/24 Range/Units 16:42 20:43 05:51 Hct 36.9 L (37.0-47.0) % Neut # (Auto) 6.55 H (1.40-6.50) K/uL [place] # (Auto) 0.67 H (0.11-0.59) K/uL BUN/Creatinine Ratio 21.7 H (10-20) Glucose 298 H (70-99(Fasting)) mg/dl POC Glucose 208 H 261 H (70-99) mg/dl Magnesium 1.3 L (1.7-2.4) mg/dl 02/03/24 02/03/24 02/03/24 Range/Units 07:39 11:39 11:41 Hct (37.0-47.0) % Neut # (Auto) (1.40-6.50) K/uL [place] # (Auto) (0.11-0.59) K/uL BUN/Creatinine Ratio (10-20) Glucose (70-99(Fasting)) mg/dl POC Glucose 272 H 427 H* 407 H* (70-99) mg/dl Magnesium (1.7-2.4) mg/dl PG Care Time/CCT Total # of Minutes Spent Total Time Spent with Patient: Total time spent is greater than 50% in coordination of care (as documented) at patient's floor/unit and/or counseling patient: Coding Level of Care Code 40353 SUB INP/OBS CARE 2/35MIN Diagnoses Sepsis due to urinary tract infection A41.9; N39.0 Hypoglycemia associated with type 2 diabetes mellitus E11.649 Dehydration E86.0 S/P cervical spinal fusion Z98.1 Hypomagnesemia E83.42 Ambulatory dysfunction R26.2 C2 cervical fracture S12.100A Encounter type: subsequent encounter Fracture alignment: posteriorly displaced Fracture morphology: type II dens Fracture type: closed C1 cervical fracture S12.000A Encounter type: subsequent encounter Fracture morphology: unspecified fracture morphology Fracture type: closed (7) C2 cervical fracture Encounter type: subsequent encounter Fracture alignment: posteriorly displaced Fracture morphology: type II dens Fracture type: closed (8) C1 cervical fracture Encounter type: subsequent encounter Fracture morphology: unspecified fracture morphology Fracture type: closed
--- NOTE | 2024-02-03 15:00 | Pharmacy Report ---
Pharmacy Glycemic Short Note 2 - Date of Service February 03, 2024 - Glycemic Short BSG Results (Last 24 hours): 02/02/24 02/02/24 02/03/24 16:42 20:43 05:51 Glucose 298 H POC Glucose 208 H 261 H 02/03/24 02/03/24 02/03/24 07:39 11:39 11:41 Glucose POC Glucose 272 H 427 H* 407 H* OUTPATIENT ANTIDIABETIC REGIMEN: * Lantus 35 units daily, lispro 12-18 units TID, metformin ASSESSMENT: * 73 year old admitted with sepsis/uti, receiving keflex. Pharmacy consulted for glycemic management. Patient's BSGs have been >200 over the past 24 hours. Had initially come into hospital with hypoglycemia, home basal insulin held 01/30, lower dose restarted on 01/31. Now up to 30 units of basal daily (home dose 35 units). * At time of consult BSG >400 - discussed with RN and confirms patient was not eating when blood sugar taken. She reports patient has been very lethargic during her time her, minimal PO intake. Will add in CR with lunch time check and have RN recheck BSG in a couple hours to ensure trending downward. * Patient known to glycemic from 01/13 admission - BSGs during that time very labile. Could consider tighter novolog with breakfast and looser rest of day, similar to regimen last admission. PLAN FOR INPATIENT GLYCEMIC CONTROL: * Hold outpatient oral diabetes medications * Basal insulin * Lantus 30 units daily * Bolus insulin * NovoLog per scale ACHS or Q6hrs while NPO * Goal Range: Low 120 mg/dL - High 160 mg/dL * Correction Factor: 30 mg/dL/unit * Nutritional / Prandial insulin per carb ratio of 1 unit per 9 grams CHO co nsumed
[2024-02-03] MEDS: MAGNESIUM OXIDE 400 MG TAB PO SCH (21:05)
[2024-02-04] MEDS: INSULIN ASPART PER UNIT CHARGE SC SCH ×3 (00:06→12:20)
[2024-02-04] MEDS ORDERED: INSULIN ASPART PER UNIT CHARGE SC SCH (11:30)
[2024-02-04] MEDS: metFORMIN HCL 500 MG TAB PO SCH (11:54)
[2024-02-04] MEDS: SODIUM CHLORIDE 0.9% 250 ML IV ONE (11:56)
[2024-02-04] MEDS: traMADol HCL 50 MG TABLET PO STA (14:12)
--- NOTE | 2024-02-04 16:33 | Hospitalist Progress Note ---
Date of Service February 04, 2024 Assessment & Plan (1) Sepsis due to urinary tract infection: Plan: Ruled out. Urine culture is negative. Antibiotic has been discontinued (2) Hypoglycemia associated with type 2 diabetes mellitus: Plan: Present on admission. Now resolved. Lantus dosage has been down titrated. Metformin has been restarted. (3) Dehydration: Plan: Resolved with IV fluids (4) S/P cervical spinal fusion: (5) Hypomagnesemia: Plan: Replacement therapy. Serial lab (6) Ambulatory dysfunction: Plan: Continue OT PT while hospitalized (7) C2 cervical fracture: Plan: Recent C1 and C2 fracture that was surgically repaired. Currently on a soft collar. Supportive care. Plan Hopeful discharge back to [facility] tomorrow, February 04 Admission and Anticipated Discharge Date Admission Date: January 31, 2024 Subjective Medically stable. Mental status appears to be at baseline. She was hypoglycemic on admission which could have caused the mental status changes. Urine and blood cultures on admission are negative. Blood pressure was mildly low today but responded to IV fluid bolus. Effexor has been restarted. Metformin has also been restarted. Hopefully she can return to [facility] tomorrow, February 04, where she has a bed hold Review of Systems 2 Review of Systems: Constitutionalno fever or chills ENTno blurred vision, no double vision, no epistaxis, no sore throat Respiratoryno cough, no wheezing, no shortness of breath Cardiacno palpitations, no chest pain, no syncope Jeffery nausea, vomiting, diarrhea, melena, hematochezia GUno urinary retention, no urinary incontinence, no dysuria, no hematuria Musculoskeletalno joint pain, no muscle tenderness Skinno bruising, no rashes, no pruritus Neurono isolated weakness, no paresthesia, no weakness Psychno depression, no anxiety Physical Exam 2 Physical Exam: General-alert and oriented x3, no fever, no chills HEENT-head atraumatic and normocephalic, pupils equal and reactive to light, extraocular muscles intact Neck-no lymphadenopathy or thyromegaly, trachea midline Chest-clear to auscultation. No rales, wheezing or rhonchi Cardiac-regular rate and rhythm, normal S1 and S2 Abdomen-normal bowel sounds, no hepatosplenomegaly Extremities-no cyanosis, clubbing, or edema Neuro-cranial nerves II through XII intact, motor and sensory function within normal limits, strength symmetrical, no focal deficits Psych-normal affect, normal mood Results & Data Results & Data Vital Signs (Past 12 Hours) Vital Signs Temp Pulse Resp BP Pulse Ox O2 Del Method 02/04/24 15:29 36.8 C 97 H 18 103/69 98 Room Air 02/04/24 13:18 36.9 C 96 H 14 90/59 L 99 Room Air 02/04/24 12:00 36.4 C L 98 H 16 89/63 L 96 Room Air 02/04/24 08:00 Room Air 02/04/24 07:51 36.3 C L 94 H 16 93/66 L 95 Room Air Laboratory Results 02/03/24 05:51 02/03/24 05:51 PG Care Time/CCT Total # of Minutes Spent Total Time Spent with Patient: Total time spent is greater than 50% in coordination of care (as documented) at patient's floor/unit and/or counseling patient: Coding Level of Care Code 81199 SUB INP/OBS CARE 3/50MIN Diagnoses Sepsis due to urinary tract infection A41.9; N39.0 Hypoglycemia associated with type 2 diabetes mellitus E11.649 Dehydration E86.0 S/P cervical spinal fusion Z98.1 Hypomagnesemia E83.42 Ambulatory dysfunction R26.2 C2 cervical fracture S12.100A Encounter type: subsequent encounter Fracture alignment: posteriorly displaced Fracture morphology: type II dens Fracture type: closed (7) C2 cervical fracture Encounter type: subsequent encounter Fracture alignment: posteriorly displaced Fracture morphology: type II dens Fracture type: closed
[2024-02-04] MEDS: ACETAMINOPHEN 500 MG TAB PO PRN (21:07)
[2024-02-04] MEDS: VENLAFAXINE HCL 50 MG TAB PO SCH (21:13)
--- NOTE | 2024-02-05 00:18 | Communication Note ---
Date of Service: February 05, 2024 Patient admitted for sepsis in the setting of UTI that improved with abx therapy. Antibiotics were stopped earlier this morning as patient had been impr oving. BPs were soft throughout the day, but did improve with a small bolus of NS and MAPs were maintaining perfusion. Resident contacted early in shift about pain control and PRN Tylenol was ordered. I was then contacted regarding continued pain and a BP of 94/61. A small bolus was ordered in addition to a one time dose of Toradol. Before these could be given a rapid response was called. Rapid response called for clamminess, hypotension, and tachycardia. They were unable to get a BP. Resident to bedside. Patient had been placed in a slight Trendelenburg. Reporting neck pain, but no CP or SOB. Patient awake and able to answer questions. ICU coverage NATALYA Prasad present as well. Reviewed ECHO - last EF preserved. Patient started on 1L NSS bolus. Chart was reviewed and no recent labs available. Ordered VBG, cortisol, procal, CBC, CMP, ionized calcium, mg, phos, and lactate. EKG showed some widening of the QRS and likely conduction delay. No obvious ST elevations. BP obtained with SBP in the 50s. Started on levo and transferred to the ICU. Resident Activity Tracking Resident Involvement: Resident Care Provided Care Provided: Adult Hospital Medicine
[2024-02-05] MEDS: NOREPINEPHRINE/D5W 4 MG/250 ML IV ONE (00:22)
[2024-02-05] MEDS ORDERED: STAT IV Infusion **Titration per Protocol STA ×2 (00:27→13:41)
[2024-02-05] MEDS: NOREPINEPHRINE/D5W 4 MG/250 ML PLCT IV SCH (00:37)
[2024-02-05 00:56] LABS: Albumin Level 3.7 gm/dl (3.4-5.0); Bilirubin,Total 0.6 mg/dl (0.2-1.0); Calcium 10.6 mg/dl (8.6-10.3); Potassium 4.1 mmol/L (3.5-5.1)
--- NOTE | 2024-02-05 01:07 | Critical Care Consultation ---
Date of Consultation February 05, 2024 Assessment & Plan (1) Shock: (2) Hypoglycemia associated with type 2 diabetes mellitus: (3) S/P cervical spinal fusion: (4) Encephalopathy: (5) Type 2 diabetes mellitus, uncontrolled: Plan Reason Critically Ill: 73 YOF on HD # 5 admitted for possible sepsis, hypoglycemia, hypovolemia. Rapid Response secondary to diaphoresis, tachycardia, and hypotension- now requiring vasopressor support. Neuro - Metabolic Encephalopathy, C1/C2 fracture- s/p repair- stable CAM ICU: JOSEFINA - Patient remains pleasantly confused, follows commands - Complains of neck pain- however with discussion of nursing this has been her normal - She has not received any narcotics prior to event - Tylenol for pain- Toradol discontinued Cardiac - Shock unspecified Shock- Cardiogenic vs. Distributive or combination of - Tachycardic and diaphoretic does not endorse chest pain- her ECG is with new IVCD not true LBB but with septal changes however not true STEMI noted - check HsCTNI and trend ECGs - Previous ECHO reviewed with EF 65-70% and no RWMA - Obtain ECHO in am - heparinization with ECG abnormalities with elevation of HsCTNI - Did communicate with trade mark examiner Dr. Justice via text- will see in morning with ECHO - Will repeat urine culture- PCT pending - Will place back on broad spectrum until follow up labs reviewed - Levophed to maintain MAPS >65 - Fluid administration- 1 L now and bolus or oral intake as needed for low MAPS or low Urine output - She is not overtly hypoxic and is with normal CO2 and PH - consider CTA of chest if hypoxia occurs Respiratory - - Normal ventilation and oxygenation with normal PH- doubt PE at this time as she is without hypoxia and VTE prophy with SCDS and Heparin has been provided since admission GI - NO acute needs - Advance diet as able pending pressor requirement RENAL/LYTES - NO acute needs - renal function is without LUTHER in setting of hypotension - electrolytes to be replaced per ICU protocol when they return if indicated - See below ID section - Smith placed for accurate BJ while on vasopressor agents ENDO - Hx DMII, - She was initially hypoglycemic on admission - her insulins have been adjusted - goal <180mg/Dl HEME - No concern at this time ID - Can't exclude sepsis source unspecified however will repeat urine with culture - Increase in WBC and Increase in NLR to 9:1 - Rocephin 1 GM now - MRSA swab pending - Previous Urine culture reviewed - PCT pending LINES/IV ACCESS - PIV, CVL, Smith Continue use of these lines DVT PROPHYLAXIS - SCDs, Heparin 5000 units subq DISPO: ICU while requiring vasopressors I have personally spent 50 minutes of critical care time in the direct management of this patient. This is a life/limb threatening event. This includes time spent evaluating patient, direct bedside care, chart review, placing orders, interpretation of diagnostic studies, discussion with consultants, patient, and family members, as well as other required patient management activities. This time is exclusive of all separately billable procedures, and teaching time and separate from and in addition to any other critical care service time. Thank you for allowing us to participate in the care of this patient. Please refer to my attending physician's documentation for any further recommendations. Supervising Physician Co-Signing Physician Notes I have personally evaluated and examined this patient. I agree with assessment and plan of Ferny HOANG. Patient needs surrogate decision-maker limited information in chart, increasing vasoactive requirement: Cortisol adequate. Repeating labs, transitioning to insulin infusion for persistently elevated blood sugars. Repeat urine culture sent, had completed 3 days of Rocephin however given the hypotension we will add Zosyn empirically, add fungal culture and repeat blood cultures. Cardiology consult ordered. Consideration also given to nonischemic cardiomyopathy versus sepsis, no obvious source at this time I have personally spent 50 minutes of critical care time in the direct management of this patient. This is a life/limb threatening event. This includes time spent evaluating patient, direct bedside care, chart review, placing orders, interpretation of diagnostic studies, discussion with consultants, patient, and/or family members regarding treatment decisions, as well as other required patient management activities. This time is exclusive of all separately billable procedures, and teaching time and separate from and in addition to any other critical care service time. History of Present Illness Reason for Consultation: shock unspecified Requesting Physician: Shelly Rain DO Attending Physician: Miguel Duckworth MD History of Present Illness 73 YOF who is on HD #5 following admission for presumed sepsis, hypoglycemia, and hypovolemia. Patient was a rapid response "CODE PURPLE" for diaphoresis and hypotension on medical floor. Patient was found to be tachycardic in the 140s and blood pressures 70s/40s. She was noted to be diaphoretic all over, however she was awake and conversant. She had IVF bolus initiated on floor prior to transfer to the ICU. She was with poor peripheral IV access and central line was obtained secondary to rapidly increasing vasopressor requirements. Once in ICU and on vasopressor agents her HR decreased to 90-100 and blood pressure improved. Will repeat urine, all labs are pending as no labs present for past 24 hours. Her hospital course was noted with discontinuation of IVF and ABX on 02/04/24 as blood and urine cultures from admission are with NGTD- Urine culture was notable for 3 types of organisms in high counts and re-collection was recommended. Allergies Allergy/AdvReac Type Severity Reaction Status Date / Time baclofen AdvReac Intermediate Hallucinati Verified 12/21/23 14:08 ng cyclobenzaprine AdvReac Intermediate Hallucinati Verified 12/21/23 14:08 ng Home Medications Medication Instructions Recorded Confirmed Type cholecalciferol (vitamin D3) 50 2,000 units PO DAILY 11/08/18 12/21/23 History mcg (2,000 unit) capsule cyanocobalamin (vitamin B-12) 1,000 mcg PO DAILY 11/08/18 12/21/23 History 1,000 mcg tablet aspirin 81 mg tablet,delayed 81 mg PO DAILY #90 tabs 06/23/19 12/21/23 Rx release venlafaxine 150 mg 150 mg PO BID 01/18/22 12/21/23 History capsule,extended release 24 hr buspirone 15 mg tablet 30 mg PO BID 03/28/22 12/21/23 History metformin 1,000 mg tablet 1,000 mg PO BID #180 tabs 10/24/22 12/21/23 Rx rosuvastatin 20 mg tablet 20 mg PO QAM #90 tabs 10/24/22 12/21/23 Rx esomeprazole magnesium 40 mg 40 mg PO DAILY #90 caps 01/16/23 12/21/23 Rx capsule,delayed release (Nexium) bupropion HCl 150 mg tablet,12 hr 300 mg PO DAILY 02/23/23 12/21/23 History sustained-release amoxicillin 500 mg capsule 2,000 mg PO DIRECTED PRN 1 HR 03/09/23 12/21/23 History PRIOR TO DENTAL PROCEDURES pen needle, diabetic 32 gauge x #400 ea 03/15/23 12/21/23 Rx 5/32" (BD Ultra-Fine Marleny Pen Needle) blood sugar diagnostic (OneTouch #600 ea 05/10/23 12/21/23 Rx Ultra Test strips) insulin lispro 100 unit/mL See Rx Instructions subcut TID 08/02/23 12/21/23 History subcutaneous pen (Humalog KwikPen (U-100) Insulin) blood-glucose meter #1 ea 08/10/23 12/21/23 Rx albuterol sulfate 90 mcg/actuation 2 puff inhalation Q4H PRN 10/10/23 12/21/23 History aerosol inhaler Shortness Of Breath Or Wheezing insulin glargine 100 unit/mL (3 35 unit subcut QPM 10/10/23 12/21/23 History mL) subcutaneous pen (Lantus Solostar U-100 Insulin) acetaminophen 500 mg tablet 1,000 mg (2 x 500 mg) PO TID PRN 11/30/23 12/21/23 Rx pain #90 tabs gabapentin 300 mg capsule 300 mg PO TID 12/21/23 12/21/23 History Patient History Medical History Anterolisthesis of lumbar spine Elevated troponin Fall C6 cervical fracture Acute anterior epistaxis Perianal abscess Vitiligo Venous insufficiency (chronic) (peripheral) NSTEMI (non-ST elevated myocardial infarction) Mixed conductive and sensorineural hearing loss of both ears Frequent falls Cardiomyopathy Dyslipidemia Hypertension Hiatal hernia Small GERD (gastroesophageal reflux disease) Depression Surgical History Hx of cardiac cath Mar 2018. Normal coronary arteries. History of total knee replacement RT TKA APPROX 15 YEARS AGO L TKA 01/23/2018 Family History Mother Hypertension Cancer Melanoma Father Breast cancer Cancer Melanoma Family/Other Breast cancer Unknown Osteoarthritis Denies family history of Ovarian cancer Prostate cancer Heart disease Colorectal cancer Lung disease Stroke Asthma Social History Smoking Status: Never smoker Second Hand Exposure: No; Do You Dip or Chew Tobacco: No; Hx Alcohol Use: No Hx Substance Use: No Preferred Language: Amharic Communication Ability: Effective Communication Ability Comment: D/t facial edema from fall pt cannot see well enough to sign documents now Visual Impairment: No Limitations Hearing Ability: Normal Software Firmware Engineer Required: No Beliefs That Will Affect Care: None marital status: Current Living Situation: [facility] Current Living Situation Comment: Home with mother current occupational status: disabled Feels Safe at Home: Yes Childhood Exposure to Second-Hand Smoke: No Diet: regular caffeine: Yes Dental Care, Regularly: Yes Physical Activity Frequency: 3-4 Times per Week Physical Activity Frequency Comment: walk Seatbelt Use: always Sunscreen Use: No (not in the sun) Do you think of yourself as: straight/heterosexual Assistive Devices: Walker Review of Systems Review of Systems: unable to obtain secondary to encephalopathy Physical Exam Physical Exam: PHYSICAL EXAM: General: awake, pleasantly confused, diaphoretic Head: Normocephalic, atraumatic ENT: PERRLA, EOMI, no pharyngeal exudate, mucous membranes dry Neuro: AAO x 1, speech clear and inappropriate, strength intact bilaterally 4/5 Cardiac: Regular rate and rhythm, ECG reviewed- tachycardic IVCD vs. abbarancy, skin cool and moist, cap refill >3 seconds, peripheral pulses +2 no JVD, no edema GI: NABS x 4 quadrants, soft, nontender to palpation, no rebound, guarding or tenderness : Spontaneously voiding, Results & Data Results & Data Vital Signs (Past 12 Hours) Vital Signs Temp Pulse Resp BP BP Pulse Ox O2 Del Method 02/04/24 20:34 36.5 C 102 H 18 93/61 L 96 Room Air 02/04/24 19:30 Room Air 02/04/24 15:29 36.8 C 97 H 18 103/69 98 Room Air 02/04/24 13:18 36.9 C 96 H 14 90/59 L 99 Room Air Medications Administered Home Medications cholecalciferol (vitamin D3) 50 mcg (2,000 unit) capsule 2,000 units PO DAILY 11/08/18 [History Confirmed 12/21/23] cyanocobalamin (vitamin B-12) 1,000 mcg tablet 1,000 mcg PO DAILY 11/08/18 [History Confirmed 12/21/23] aspirin 81 mg tablet,delayed release 81 mg PO DAILY #90 tabs 06/23/19 [Rx Confirmed 12/21/23] venlafaxine 150 mg capsule,extended release 24 hr 150 mg PO BID 01/18/22 [History Confirmed 12/21/23] buspirone 15 mg tablet 30 mg PO BID 03/28/22 [History Confirmed 12/21/23] metformin 1,000 mg tablet 1,000 mg PO BID #180 tabs 10/24/22 [Rx Confirmed 12/21/23] rosuvastatin 20 mg tablet 20 mg PO QAM #90 tabs 10/24/22 [Rx Confirmed 12/21/23] esomeprazole magnesium 40 mg capsule,delayed release (Nexium) 40 mg PO DAILY #90 caps 01/16/23 [Rx Confirmed 12/21/23] bupropion HCl 150 mg tablet,12 hr sustained-release 300 mg PO DAILY 02/23/23 [History Confirmed 12/21/23] amoxicillin 500 mg capsule 2,000 mg PO DIRECTED PRN 1 HR PRIOR TO DENTAL PROCEDURES 03/09/23 [History Confirmed 12/21/23] pen needle, diabetic 32 gauge x 5/32" (BD Ultra-Fine Marleny Pen Needle) #400 ea 03/15/23 [Rx Confirmed 12/21/23] blood sugar diagnostic (BeCouplyTouch Ultra Test strips) #600 ea 05/10/23 [Rx Confirmed 12/21/23] insulin lispro 100 unit/mL subcutaneous pen (Humalog KwikPen (U-100) Insulin) See Rx Instructions subcut TID 08/02/23 [History Confirmed 12/21/23] blood-glucose meter #1 ea 08/10/23 [Rx Confirmed 12/21/23] albuterol sulfate 90 mcg/actuation aerosol inhaler 2 puff inhalation Q4H PRN Shortness Of Breath Or Wheezing 10/10/23 [History Confirmed 12/21/23] insulin glargine 100 unit/mL (3 mL) subcutaneous pen (Lantus Solostar U-100 Insulin) 35 unit subcut QPM 10/10/23 [History Confirmed 12/21/23] acetaminophen 500 mg tablet 1,000 mg (2 x 500 mg) PO TID PRN pain #90 tabs 11/30/23 [Rx Confirmed 12/21/23] gabapentin 300 mg capsule 300 mg PO TID 12/21/23 [History Confirmed 12/21/23] Active Medications Acetaminophen (Acetaminophen 500 Mg Tab) 1,000 mg PO Q8H PRN PRN Reason: Pain or Agitation Stop: 03/05/24 19:42 Last Admin: 02/04/24 21:07 Dose: 1,000 mg Albuterol (Albuterol Hfa 8 Gm Inhaler) 2 puffs INH Q4H PRN PRN Reason: Shortness Of Breath Or Wheezing Stop: 03/01/24 21:32 Dextrose (Dextrose 50% 50 Ml Syringe) 25 - 50 ml IV UD PRN; Protocol PRN Reason: Hypoglycemia Protocol Stop: 03/01/24 21:32 Glucagon (Glucagon For Inj 1 Mg Vial) 1 mg SQ UD PRN; Protocol PRN Reason: Hypoglycemia Protocol Stop: 03/01/24 21:32 Glucose (Glucose 40% Gel 15 Gm Tube) 15 - 30 gm PO UD PRN; Protocol PRN Reason: Hypoglycemia Protocol Stop: 03/01/24 21:32 Glucose (Glucose 10 Tab/Tube) 4 - 8 tab PO UD PRN; Protocol PRN Reason: Hypoglycemia Protocol Stop: 03/01/24 21:32 Heparin Sodium (Porcine) (Heparin Sod 5,000 Unit/0.5 Ml Vial) 5,000 units SQ Q12 [facility] Stop: 03/01/24 21:44 Last Admin: 02/04/24 21:08 Dose: 5,000 units Norepinephrine Bitartrate (Levophed/D5w) 4 mg in 250 mls @ 12.356 mls/hr IV .Q2 0H14M [facility]; Protocol Stop: 03/06/24 00:29 Last Admin: 02/05/24 00:37 Dose: 0.17 mcg/kg/min, 42 mls/hr Insulin Aspart (Insulin Aspart Per Unit Charge) 0 units SC DAILY@0730 [facility] Stop: 03/05/24 07:29 Last Admin: 02/04/24 08:17 Dose: 13 units Insulin Aspart (Insulin Aspart Per Unit Charge) 0 units SC 1130,1630,2100 [facility] Stop: 03/05/24 11:29 Last Admin: 02/04/24 21:07 Dose: 1 units Insulin Glargine (Lantus Per Unit Charge) 30 units SQ QAM [facility] Stop: 03/04/24 08:59 Last Admin: 02/04/24 08:18 Dose: 30 units Magnesium Oxide (Magnesium Oxide 400 Mg Tab) 400 mg PO BID [facility] Stop: 03/04/24 20:59 Last Admin: 02/04/24 21:14 Dose: 400 mg Miscellaneous (Carbohydrates For Hypoglycemia ) 15 - 30 gm PO UD PRN PRN Reason: Hypoglycemia Protocol Stop: 03/01/24 21:32 Nystatin (Nystatin Cr 15 Gm Tube) 1 appln EXT BID [facility] Stop: 03/02/24 20:59 Last Admin: 02/04/24 21:20 Dose: 1 appln Ondansetron HCl (Ondansetron Inj 2 Mg/Ml 2 Ml Vial) 4 mg IV Q6H PRN PRN Reason: Nausea Stop: 03/01/24 21:32 Venlafaxine HCl (Venlafaxine Hcl 50 Mg Tab) 100 mg PO BID [facility] Stop: 03/05/24 20:59 Last Admin: 02/04/24 21:13 Dose: 100 mg Coding Level of Care Code 18722 CRITICAL CARE 1ST 30-74M Additional Critical Care Time Additional 30min Critical Care Time: Yes - 32004 Diagnoses Shock R57.9 Hypoglycemia associated with type 2 diabetes mellitus E11.649 S/P cervical spinal fusion Z98.1 Encephalopathy G93.40 Uncontrolled type 2 diabetes mellitus with hypoglycemia without coma E11.649 Coma presence: without coma Glycemic state: with hypoglycemia Additional Codes Critical Care Time - Additional 30min Critical Care Time: Yes - 51821 ([id number]) (5) Type 2 diabetes mellitus, uncontrolled Coma presence: without coma Glycemic state: with hypoglycemia Qualified Code(s): E11.649 - Type 2 diabetes mellitus with hypoglycemia without coma
[2024-02-05 01:11] LABS: Base Excess VBG -1.1 mEq/L; HCO3 VBG 25 mmol/L; Oxygen Saturation VBG < 60.0 %; PCO2 VBG 45 mmHg (38-50); PO2 VBG 32 mmHg; pH VBG 7.35 (7.36-7.41)
[2024-02-05 01:12] LABS: Basophils % (auto) 0.4 %; Eosinophils # (auto) 0.12 K/uL (0.00-0.50); Eosinophils % (auto) 0.5 %; Hematocrit (blood only) 39.1 % (37.0-47.0); Hemoglobin 13.2 g/dl (12.0-16.0); Immature Granulocytes # (auto) 0.14 K/uL (0.01-0.20); Immature Granulocytes % (auto) 0.6 %; Lymphocytes # (auto) 2.41 K/uL (1.20-3.40); Lymphocytes % (auto) 10.5 %; Mean Corpuscular Hemoglobin 29.3 pg (25.0-34.0); Mean Corpuscular Hgb Conc 33.8 g/dL (32.0-36.0); Mean Corpuscular Volume 86.9 fL (80.0-100.0); Mean Platelet Volume 9.7 fL (9.4-12.4); Monocytes # (auto) 1.41 K/uL (0.11-0.59); Monocytes % (auto) 6.1 %; Neutrophils # (auto) 18.83 K/uL (1.40-6.50); Neutrophils % (auto) 81.9 %; Platelet Count 368 K/uL (130-400); RDW Coefficient of Variation 12.8 % (11.5-14.5); RDW Standard Deviation 40.5 fL (36.4-46.3); White Blood Count 23.01 K/ul (4.8-10.8)
[2024-02-05 01:19] LABS: Albumin Globulin Ratio 1.2 (0.9-2); BUN Creatinine Ratio 19.2 (10-20); Creatinine Clr Calc Pharmacy 46.9 ml/min; Globulin 3.2 gm/dl (2.5-4.0); Total Protein 6.9 gm/dl (6.0-8.3)
--- NOTE | 2024-02-05 01:40 | Procedure Note ---
Procedure Note Date of Service February 05, 2024 Procedure: RIGHT FEMORAL Central Line Placement Proceduralist: Mino HOANG ([facility]) Attending: Dr. Triana Indication: Central Drug Administration, Poor Venous Access, Multiple Lab Draws Necessary, etc. Anesthesia: xLidocaine 1% Emergent Consent implied as patient is full code with very low blood pressure requiring hemodynamic support with rapidly escalating vasopressor requirements. A time-out was completed verifying correct patient, procedure, site, positioning. Patients RIGHT groin was cleansed and draped in the typical sterile fashion using Chloraprep. Femoral Vein and Femoral Artery were identified using ultrasound. The superficial tissue was anesthetized using 5 mL of 1% lidocaine without epinephrine under direct visualization with the ultrasound. After adequate anesthetization was achieved, the Femoral vein was cannulated under direct ultrasound guidance using an introducer needle on a syringe. Good venous blood return was maintained prior to removal of syringe from introducer needle. Using Seldinger Technique, a guide wire was advanced through the introducer needle without resistance. The introducer needle was removed and ultrasound images were obtained of the guide wire within the Femoral Vein. A small incision was made in penetrating fashion at the guide wire insertion site utilizing an 11 blade scalpel. The dilator was advanced to the vessel without resistance. The dilator was exchanged for the triple lumen catheter which was advanced into the vessel without resistance. The guide wire was removed intact from the catheter without issue. Claves were placed on each catheter tip with confirmation of good blood flow from each lumen. Each port was easily flushed with sterile saline. The catheter was placed at 20 cm and sutured in place. BioPatch was applied to the catheter and a sterile Tegaderm dressing was applied over the catheter with careful attention to sterility. Patient tolerated procedure well. No immediate complications were met. Line is ready for immediate use. Artery AND Vein visualized: YES Compressible Vein: YES Guidewire or Short Catheter seen in vein prior to dilation: YES [facility] Procedure Codes (Charges) Tubes, Drains, and Vasc Access Procedure 1: Tubes, Drains, and Vasc Access: [id number] Insertion Of Non-tunneled Catheter Age 6 Yrs> Coding CPT Codes Tubes, Drains, and Vasc Access - Tubes, Drains, and Vasc Access: 07012 Insertion Of Non-tunneled Catheter Age 6 Yrs> ([id number]) Additional Codes Date of Service ([email or web address])
[2024-02-05 01:52] LABS: Magnesium 1.3 mg/dl (1.7-2.4)
[2024-02-05] MEDS: cefTRIAXone SODIUM 1,000 MG/50 ML BAG IV STA (02:08)
[2024-02-05] MEDS: PLASMA-LYTE A 1,000 ML IV ONE (02:08)
[2024-02-05 02:36] LABS: Partial Thromboplastin Time 28 Seconds (21-31)
[2024-02-05] MEDS: HEPARIN SODIUM/DEXTROSE 25,000 UNITS/500 ML BAG IV SCH (02:41)
[2024-02-05] MEDS: HEPARIN SOD (PORCINE) 1000 UNIT/ML IV ONE (02:41)
[2024-02-05 02:50] LABS: BUN Creatinine Ratio 19.1 (10-20); Calcium 9.6 mg/dl (8.6-10.3); Creatinine Clr Calc Pharmacy 42.2 ml/min; Magnesium 1.2 mg/dl (1.7-2.4); Phosphorus 3.9 mg/dl (2.5-4.9); Potassium 4.2 mmol/L (3.5-5.1)
[2024-02-05] MEDS: PLASMA-LYTE A 250 ML IV ONE (03:04)
[2024-02-05] MEDS: MAGNESIUM SULFATE / D5W 1 GM/100 ML BAG IV SCH (03:05)
[2024-02-05] MEDS: SODIUM CHLORIDE 0.9% 250 ML IV ONE (05:47)
[2024-02-05] MEDS: Heparin IV Adult Wt-Based Low-Dose w/ INITIAL Bolus Protocol IV STA (08:19)
[2024-02-05] MEDS: ICU ELECTROLYTE REPLACEMENT PROTOCOL SCH (08:20)
[2024-02-05] MEDS: KETOROLAC TROMETHAMINE 15 MG/ML VIAL IV ONE (08:22)
[2024-02-05] MEDS: LANTUS PER UNIT CHARGE SQ SCH (08:42)
[2024-02-05 09:06] LABS: ANTI-Xa, UFH(UnfractionatedHep 0.42 IU/ml (0.3-0.7)
[2024-02-05] MEDS ORDERED: VANCOMYCIN CONSULT ACTIVE PRN (09:25)
[2024-02-05] MEDS ORDERED: VANCOMYCIN HCL 1,000 MG/270 ML BAG IV ONE (09:25)
[2024-02-05] MEDS ORDERED: VANCOMYCIN 1,500 MG in D5W 500mL (Use w/ NSS Shortage) IV SCH (09:45)
[2024-02-05] MEDS: PANTOprazole 40 MG/10 ML SYR x 1 IV SCH (10:38)
[2024-02-05] MEDS: LANTUS PER UNIT CHARGE SQ STA (10:40)
[2024-02-05] MEDS: VANCOMYCIN 1,500 MG in D5W 500mL (Use w/ NSS Shortage) IV ONE (10:46)
--- NOTE | 2024-02-05 11:22 | Pharmacy Report ---
Pharmacy PK ABX Note - Date of Service February 05, 2024 - Assessment and Plan Assessment 73 year old f receiving Vancomycin for empiric indication. * Day #1 of antimicrobial therapy. * Patient just completed 5 days of cephalosporins for a possible UTI. * Admission blood and urine cultures were negative. MRSA swab is negative. Repeat urine culture pending. * Lactate was elevated at 3.0 while procalcitonin was 0.19. Febrile at 38oC. White count increased significantly to 23k. SCr 1.10 with CrCl 42 mL/min. Plan Vancomycin * Loading dose: 1500 mg IV x 1 * Maintenance dose: 1250 mg IV every 24 hours * Regimen is predicted to achieve target AUC/HERMINIO of 400-600 mg/L.hr * Random level ordered for: 02/07/24 Pharmacy will continue to follow and will adjust dose/frequency as necessary. Thank you. Pharmacy has transitioned to AUC monitoring for vancomycin. AUC/HERMINIO is the preferred PK/PD target and is associated with decreased risk of nephrotoxicity compared to traditional trough targets.
[2024-02-05] MEDS: INSULIN ASPART PER UNIT CHARGE SC SCH ×2 (11:25→15:03)
[2024-02-05] MEDS: ACETAMINOPHEN 1,000 MG/100 ML VIAL IV PRN (12:06)
--- NOTE | 2024-02-05 12:15 | Cardiology Consultation ---
Date of Consultation February 05, 2024 Assessment & Plan (1) Shock: acute decompensation overnight not due to cardiogenic cause based on no clear evidence of severe myocardial injury, she does have a reduced EF this AM but I suspect that is secondary. - EKG only significant for sinus tachycardia - troponin elevated overnight to 1064, downtrending despite worsening status - lactate resolved: 3.0 -> 1.6 this AM - WBCs and neutrophils elevated, continue treating sepsis / complicated UTI with IV vancomycin - for now continue treating hypotension with IV pressors and fluids - awaiting official read on echo from this AM (2) Nonischemic cardiomyopathy: echo this AM showing reduced EF from prior in Oct 2023 - last time reduced was in Mar 2018, which had resolved by July 2018 and her arteries were normal - EKG at time of decompensation showing only sinus tachycardia, change from day prior showing tachycardia with non-specific IVCD - for now continue treating hypotension with IV pressors and fluids - awaiting official read on echo from this AM but on my review it is signif icantly reduced (3) Elevated troponin: peaked 1064 around 1am, downtrending - no ST elevation seen on EKG although with the conduction abnormality this could be missed - echo this AM showing reduced EF compared to prior in Oct 2023 (4) Hypomagnesemia: 1.2 this morning - has been receiving IV mag sulfate in dextrose - trend mag (5) Sepsis due to urinary tract infection: continue IV vancomycin - IV pressors and fluids for shock, which may be a combination of cardiogenic and distributive (6) Type 2 diabetes mellitus, uncontrolled: elevated blood glucose - continue insulin Supervising Physician Co-Signing Physician Notes Patient was seen and examined, history and physical exam reviewed with Dr. Brown. I doubt this is a primary cardiac event, she does not have a history of coronary artery disease and I suspect her severe left ventricular dysfunction is secondary to her underlying medical condition. I do not believe there is any role for invasive evaluation. She has a conduction abnormality at high heart rates, I suspect this is rate related. I would recommend managing her for her hypertension with pressors as noted above. Poor prognosis. History of Present Illness Reason for Consultation: shock: cardiogenic vs distributive due to sepsis Requesting Physician: NATALYA De Leon Attending Physician: Miguel Duckworth MD History of Present Illness Sole is a 73yo female with a severe cardiomyopathy in March 2018 with no obstructive coronary disease seen on cath at the time an LVEF 25-30%, resolved to 55-60% as of echo by July 2018. Has been on rosuvastatin 20mg and aspirin 81mg daily. Recent hospitalization at [place] in October 2023 for fall resulting in cervical fractures shows echo with EF 65-70%. Presents now to ER for unwitnessed fall and AMS. CT head negative but UA showing UTI and patient having signs of sepsis, admitted for sepsis due to UTI on 01/31/24. 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 Was still able to respond to questioning at the time. Troponin was elevated to 1064 around 1am and has since been downtrending. EKG at the time showed sinus tachycardia, compared to day prior showing tachycardia and non-specific IVCD. Patient received echocardiogram this AM showing reduced EF. At time of encounter, patient was lying in bed with her eyes closed. When addressed, patient was slow to reply and open her eyes. Was able to say no to being in particular pain at the time. Followed directions during physical exam with some success and slowly. Denies chest pain, shortness of breath, headache, dizziness, vision changes, abdominal pain. Allergies Allergy/AdvReac Type Severity Reaction Status Date / Time baclofen AdvReac Intermediate Hallucinati Verified 12/21/23 14:08 ng cyclobenzaprine AdvReac Intermediate Hallucinati Verified 12/21/23 14:08 ng Home Medications Medication Instructions Recorded Confirmed Type cholecalciferol (vitamin D3) 50 2,000 units PO DAILY 11/08/18 12/21/23 History mcg (2,000 unit) capsule cyanocobalamin (vitamin B-12) 1,000 mcg PO DAILY 11/08/18 12/21/23 History 1,000 mcg tablet aspirin 81 mg tablet,delayed 81 mg PO DAILY #90 tabs 06/23/19 12/21/23 Rx release venlafaxine 150 mg 150 mg PO BID 01/18/22 12/21/23 History capsule,extended release 24 hr buspirone 15 mg tablet 30 mg PO BID 03/28/22 12/21/23 History metformin 1,000 mg tablet 1,000 mg PO BID #180 tabs 10/24/22 12/21/23 Rx rosuvastatin 20 mg tablet 20 mg PO QAM #90 tabs 10/24/22 12/21/23 Rx esomeprazole magnesium 40 mg 40 mg PO DAILY #90 caps 01/16/23 12/21/23 Rx capsule,delayed release (Nexium) bupropion HCl 150 mg tablet,12 hr 300 mg PO DAILY 02/23/23 12/21/23 History sustained-release amoxicillin 500 mg capsule 2,000 mg PO DIRECTED PRN 1 HR 03/09/23 12/21/23 History PRIOR TO DENTAL PROCEDURES pen needle, diabetic 32 gauge x #400 ea 03/15/23 12/21/23 Rx 32" (BD Ultra-Fine Marleny Pen Needle) blood sugar diagnostic (OneTouch #600 ea 05/10/23 12/21/23 Rx Ultra Test strips) insulin lispro 100 unit/mL See Rx Instructions subcut TID 08/02/23 12/21/23 History subcutaneous pen (Humalog KwikPen (U-100) Insulin) blood-glucose meter #1 ea 08/10/23 12/21/23 Rx albuterol sulfate 90 mcg/actuation 2 puff inhalation Q4H PRN 10/10/23 12/21/23 History aerosol inhaler Shortness Of Breath Or Wheezing insulin glargine 100 unit/mL (3 35 unit subcut QPM 10/10/23 12/21/23 History mL) subcutaneous pen (Lantus Solostar U-100 Insulin) acetaminophen 500 mg tablet 1,000 mg (2 x 500 mg) PO TID PRN 11/30/23 12/21/23 Rx pain #90 tabs gabapentin 300 mg capsule 300 mg PO TID 12/21/23 12/21/23 History Patient History Medical History Anterolisthesis of lumbar spine Elevated troponin Fall C6 cervical fracture Acute anterior epistaxis Perianal abscess Vitiligo Venous insufficiency (chronic) (peripheral) NSTEMI (non-ST elevated myocardial infarction) Mixed conductive and sensorineural hearing loss of both ears Frequent falls Cardiomyopathy Dyslipidemia Hypertension Hiatal hernia Small GERD (gastroesophageal reflux disease) Depression Surgical History Hx of cardiac cath Mar 2018. Normal coronary arteries. History of total knee replacement RT TKA APPROX 15 YEARS AGO L TKA 01/23/2018 Family History Mother Hypertension Cancer Melanoma Father Breast cancer Cancer Melanoma Family/Other Breast cancer Unknown Osteoarthritis Denies family history of Ovarian cancer Prostate cancer Heart disease Colorectal cancer Lung disease Stroke Asthma Social History Smoking Status: Never smoker Second Hand Exposure: No; Do You Dip or Chew Tobacco: No; Hx Alcohol Use: No Hx Substance Use: No Preferred Language: [place] Communication Ability: Effective Communication Ability Comment: D/t facial edema from fall pt cannot see well enough to sign documents now Visual Impairment: No Limitations Hearing Ability: Normal Wheel Alignment Technician Required: No Beliefs That Will Affect Care: None marital status: Current Living Situation: Residential Current Living Situation Comment: Home with mother current occupational status: disabled Feels Safe at Home: Yes Childhood Exposure to Second-Hand Smoke: No Diet: regular caffeine: Yes Dental Care, Regularly: Yes Physical Activity Frequency: 3-4 Times per Week Physical Activity Frequency Comment: walk Seatbelt Use: always Sunscreen Use: No (not in the sun) Do you think of yourself as: straight/heterosexual Assistive Devices: Walker Review of Systems Review of Systems: per HPI Physical Exam Physical Exam: Constitutional: intermittently alert, limited orientation, appears stated age, not appearing in acute distress HEENT: NC/AT, PERRL, EOMI but significant lag, oropharynx dry in appearance Cardiovascular: tachycardic, regular rhythm, soft s1/s2, no murmurs/rubs/gallops heard on auscultation - pulses: carotid 2+ b/l, radial 1+ b/l; unable to palpate posterior tibial or dorsalis pedis pulses b/l Respiratory: clear to auscultation b/l, fair equal air entry b/l, no wheeze/rales/rhonchi GI: abdomen soft, +BS, nontender to palpation MSK: 3/5 strength throughout extremities, slow moving; b/l LE cold to touch from feet up to mid-villalba, pressure ulcer on back of R heel Neuro: no facial droop, speech slow but intact, CNII-XII grossly intact Results & Data Vital Signs (Past 12 Hours) Vital Signs Temp Pulse Pulse Resp BP BP Pulse Ox 02/05/24 11:30 38.1 C H 129 H 24 77/61 L 96 02/05/24 11:03 38.0 C H 127 H 17 84/61 L 95 02/05/24 10:36 37.8 C H 125 H 24 97/61 L 94 02/05/24 10:15 37.8 C H 94 H 17 95/61 L 97 02/05/24 09:39 37.7 C H 91 H 24 93/59 L 96 02/05/24 09:03 37.7 C H 93 H 23 95/64 L 95 02/05/24 08:30 37.6 C H 92 H 20 90/61 L 98 02/05/24 08:03 37.6 C H 92 H 18 84/59 L 99 02/05/24 07:20 37.6 C H 94 H 18 99/64 L 98 02/05/24 06:45 37.8 C H 92 H 15 85/61 L 98 02/05/24 06:15 37.8 C H 93 H 16 105/64 98 02/05/24 06:00 37.8 C H 92 H 16 96/73 L 98 02/05/24 05:45 37.8 C H 96 H 16 97/58 L 98 02/05/24 05:37 94/65 L 02/05/24 05:30 37.8 C H 94 H 15 83/63 L 98 02/05/24 05:15 37.8 C H 98 H 22 103/65 97 02/05/24 05:00 37.8 C H 95 H 15 102/66 98 02/05/24 04:45 37.8 C H 95 H 20 106/64 98 02/05/24 04:30 37.8 C H 95 H 22 92/63 L 97 02/05/24 04:15 37.8 C H 99 H 18 101/69 98 02/05/24 04:15 37.8 C H 96 H 16 101/69 98 02/05/24 04:00 37.8 C H 95 H 18 84/60 L 99 02/05/24 03:45 37.8 C H 96 H 22 95/63 L 97 02/05/24 03:30 37.8 C H 95 H 14 94/62 L 98 02/05/24 03:15 38 C H 100 H 15 84/63 L 97 02/05/24 03:00 38 C H 107 H 21 96/69 L 98 02/05/24 02:45 37.9 C H 108 H 18 99/64 L 99 02/05/24 02:30 37.8 C H 107 H 20 99/62 L 99 02/05/24 02:15 37.8 C H 110 H 22 91/70 L 100 02/05/24 02:00 37.6 C H 110 H 21 98/75 L 100 02/05/24 01:45 36.6 C 110 H 20 101/77 100 02/05/24 01:30 108 H 85/69 L 100 02/05/24 01:15 105 H 106/72 99 02/05/24 01:10 106 H 93/74 L 85 L 02/05/24 01:05 106 H 111/73 98 02/05/24 00:56 107 H 118/89 100 02/05/24 00:46 101 H 99/77 L 75 L 02/05/24 00:40 101 H 112/77 87 L 02/05/24 00:35 105 H 20 99/64 L 93 02/05/24 00:30 02/05/24 00:30 144 H 22 86/64 L 98 O2 Del Method O2 Flow Rate 02/05/24 11:30 02/05/24 11:03 02/05/24 10:36 02/05/24 10:15 02/05/24 09:39 02/05/24 09:03 Room Air 02/05/24 08:30 02/05/24 08:03 02/05/24 07:20 02/05/24 06:45 Oxymask 02/05/24 06:15 Oxymask 2 02/05/24 06:00 Oxymask 2 02/05/24 05:45 Oxymask 2 02/05/24 05:37 02/05/24 05:30 Oxymask 2 02/05/24 05:15 Oxymask 2 02/05/24 05:00 Oxymask 2 02/05/24 04:45 Oxymask 2 02/05/24 04:30 Oxymask 2 02/05/24 04:15 Oxymask 2 02/05/24 04:15 Oxymask 2 02/05/24 04:00 Oxymask 2 02/05/24 03:45 Oxymask 2 02/05/24 03:30 Nasal Cannula 2 02/05/24 03:15 Oxymask 2 02/05/24 03:00 Oxymask 2 02/05/24 02:45 Oxymask 2 02/05/24 02:30 Oxymask 2 02/05/24 02:15 Oxymask 2 02/05/24 02:00 Oxymask 2 02/05/24 01:45 Oxymask 4 02/05/24 01:30 Oxymask 4 02/05/24 01:15 Oxymask 4 02/05/24 01:10 Oxymask 4 02/05/24 01:05 Oxymask 4 02/05/24 00:56 Oxymask 4 02/05/24 00:46 Oxymask 6 02/05/24 00:40 Oxymask 4 02/05/24 00:35 Room Air 02/05/24 00:30 Room Air 02/05/24 00:30 Room Air Laboratory Results Abnormal lab results 02/04/24 02/04/24 02/04/24 Range/Units 16:45 20:31 23:27 WBC (4.8-10.8) K/ul Neut # (Auto) (1.40-6.50) K/uL Bowman # (Auto) (0.11-0.59) K/uL VBG pH (7.36-7.41) Sodium (136-145) mmol/L Anion Gap (3-11) Glucose (70-99(Fasting)) mg/dl POC Glucose 212 H 167 H 160 H (70-99) mg/dl Lactate (0.4-2.0) mmol/L Calcium (8.6-10.3) mg/dl Magnesium (1.7-2.4) mg/dl AST (13-39) U/L Alkaline Phosphatase (34-104) U/L Troponin I High Sens (0-14) pg/ml 02/05/24 02/05/24 02/05/24 Range/Units 00:20 00:52 00:55 WBC 23.01 H (4.8-10.8) K/ul Neut # (Auto) 18.83 H (1.40-6.50) K/uL Bowman # (Auto) 1.41 H (0.11-0.59) K/uL VBG pH 7.35 L (7.36-7.41) Sodium 134 L (136-145) mmol/L Anion Gap 14 H (3-11) Glucose 215 H (70-99(Fasting)) mg/dl POC Glucose (70-99) mg/dl Lactate 3.0 H* (0.4-2.0) mmol/L Calcium 10.6 H (8.6-10.3) mg/dl Magnesium 1.3 L (1.7-2.4) mg/dl AST 48 H (13-39) U/L Alkaline Phosphatase 506 H (34-104) U/L Troponin I High Sens 1064.2 H* (0-14) pg/ml 02/05/24 02/05/24 02/05/24 Range/Units 02:20 05:57 05:59 WBC (4.8-10.8) K/ul Neut # (Auto) (1.40-6.50) K/uL Bowman # (Auto) (0.11-0.59) K/uL VBG pH (7.36-7.41) Sodium 134 L (136-145) mmol/L Anion Gap (3-11) Glucose 297 H (70-99(Fasting)) mg/dl POC Glucose 333 H* 391 H* (70-99) mg/dl Lactate 2.1 H* (0.4-2.0) mmol/L Calcium (8.6-10.3) mg/dl Magnesium 1.2 L (1.7-2.4) mg/dl AST (13-39) U/L Alkaline Phosphatase (34-104) U/L Troponin I High Sens (0-14) pg/ml 02/05/24 02/05/24 02/05/24 Range/Units 06:06 08:35 10:48 WBC (4.8-10.8) K/ul Neut # (Auto) (1.40-6.50) K/uL Bowman # (Auto) (0.11-0.59) K/uL VBG pH (7.36-7.41) Sodium (136-145) mmol/L Anion Gap (3-11) Glucose (70-99(Fasting)) mg/dl POC Glucose 363 H* 332 H* (70-99) mg/dl Lactate (0.4-2.0) mmol/L Calcium (8.6-10.3) mg/dl Magnesium (1.7-2.4) mg/dl AST (13-39) U/L Alkaline Phosphatase (34-104) U/L Troponin I High Sens 962.1 H* (0-14) pg/ml Diagnostic Findings An electrocardiogram done February 05, 2024 at 1 AM showed sinus tachycardia at 106 bpm with a left bundle branch pattern. This was also present on February 04, 2024 but new compared to January 31, 2024 (rate related?) An echocardiogram done today which is not formally read as yet she has significant left ventricular dysfunction, much worse than her last echocardiogram. Telemetry rhythm shows sinus rhythm and sinus tachycardia. PG Care Time/CCT Total # of Minutes Spent Total Time Spent with Patient: Total time spent is greater than 50% in coordination of care (as documented) at patient's floor/unit and/or counseling patient: Coding Level of Care Code 86020 INT INP/OBS CARE 3/75MIN Diagnoses Shock R57.9 Nonischemic cardiomyopathy I42.8 Elevated troponin R77.8 Hypomagnesemia E83.42 Sepsis due to urinary tract infection A41.9; N39.0 Uncontrolled type 2 diabetes mellitus with hypoglycemia without coma E11.649 Coma presence: without coma Glycemic state: with hypoglycemia Resident Activity Tracking Resident Involvement: Resident Care Provided Care Provided: Adult Hospital Medicine (6) Type 2 diabetes mellitus, uncontrolled Coma presence: without coma Glycemic state: with hypoglycemia Qualified Code(s): E11.649 - Type 2 diabetes mellitus with hypoglycemia without coma
[2024-02-05] MEDS ORDERED: ACETAMINOPHEN 1,000 MG/100 ML VIAL IV PRN (12:17)
[2024-02-05] MEDS: SODIUM CHLORIDE 0.9% 1,000 ML IV SCH (13:13)
[2024-02-05] MEDS ORDERED: PHARMACY GLYCEMIC MGMT CONSULT PRN (13:52)
[2024-02-05] MEDS: INSULIN REGULAR 250 UNITS in SODIUM CHLORIDE 0.9% 247.5 ML IV SCH (14:11)
[2024-02-05] MEDS: PIPERACILLIN/TAZOBACTAM 4.5 GM/100 ML BAG IV STA (14:11)
[2024-02-05] MEDS: VASOPRESSIN 20 UNITS in SODIUM CHLORIDE 0.9% 100 ML IV SCH (14:11)
[2024-02-05] MEDS: NovoLIN-R BOLUS FROM BAG IV ONE (14:12)
[2024-02-05] MEDS: PLASMA-LYTE A 1,000 ML IV SCH (14:13)
--- NOTE | 2024-02-05 14:18 | Pharmacy Report ---
Pharmacy Glycemic Short Note 2 - Date of Service February 05, 2024 - Glycemic Short BSG Results (Last 24 hours): 02/04/24 02/04/24 02/04/24 16:45 20:31 23:27 Glucose POC Glucose 212 H 167 H 160 H 02/05/24 02/05/24 02/05/24 00:20 02:20 05:57 Glucose 215 H 297 H POC Glucose 333 H* 02/05/24 02/05/24 02/05/24 05:59 08:35 10:48 Glucose POC Glucose 391 H* 363 H* 332 H* 02/05/24 13:14 Glucose POC Glucose 358 H* OUTPATIENT ANTIDIABETIC REGIMEN: * Lantus 35 units SC HS * Humalo units SC for BSG < 250 mg/dL or 18 units SC for BSG > 250 mg/dL TID * Metformin 1000 mg PO BID HbA1c: * 9.1% (01/12/24) ASSESSMENT: * 73 yo F admitted on 01/31/24 secondary to sepsis. Pharmacy was consulted on 02/03/24 for glycemic control but then consult was discontinued the following day. Pharmacy has been consulted again to assist with inpatient glycemic management today. Patient is a Type 2 diabetic as an outpatient. Please refer to outpatient regimen and most recent HbA1c above. * Fasting BSG this AM was elevated at 363 mg/dL. Received 30 units of basal total this AM plus 20 units of bolus between breakfast and lunch. Patient was transferred to ICU overnight and condition has declined. Requiring large amounts of pressors right now in the form of norepinephrine and vasopressin. This may be altering the absorption of subcutaneous insulin. BSGs are not improving, with lunchtime BSG up to 358 mg/dL. * At this time, we will start an insulin drip for hyperglycemia. 2.5 unit IVP followed by 2.5 units/hr to start. Novolog per calculator to cover carbs. Lantus will be changed to 20 units daily starting tomorrow. PLAN FOR INPATIENT GLYCEMIC CONTROL: * Hold outpatient oral diabetes medications * Insulin drip for hyperglycemia * Goal range: 110-180 mg/dL * Stress level: HIGH * Starting rate: 2.5 unit IVP followed by 2.5 units/hr * Basal insulin * Lantus 20 units SC daily * Bolus insulin * Per insulin calculator for now * * * *
[2024-02-05 14:43] LABS: Base Excess VBG -3.9 mEq/L; HCO3 VBG 22 mmol/L; Oxygen Saturation VBG < 60.0 %; PCO2 VBG 43 mmHg (38-50); PO2 VBG 30 mmHg; pH VBG 7.32 (7.36-7.41)
[2024-02-05 15:08] LABS: Bilirubin,Total 0.5 mg/dl (0.2-1.0); Calcium 8.9 mg/dl (8.6-10.3); Creatinine Clr Calc Pharmacy 43.8 ml/min; Potassium 3.6 mmol/L (3.5-5.1); Total Protein 5.6 gm/dl (6.0-8.3)
--- NOTE | 2024-02-05 15:08 | Communication Note ---
Date of Service: February 05, 2024 Worsening hypotension. Patient without specific complaint and normal abdominal exam at this time. Lactic acid is now increased, she does have an aspect of a metabolic acidosis. Expanded antibiotic coverage added vasopressin. Attempting to find surrogate decision-maker, I am concerned about a poor prognosis. Coding Level of Care Code None
[2024-02-05] MEDS: THIAMINE HCL 100 MG in SYRINGE 9 ML IV SCH (15:19)
--- NOTE | 2024-02-05 15:50 | Hospitalist Progress Note ---
Date of Service February 05, 2024 Assessment & Plan (1) Sepsis due to urinary tract infection: Plan: Initially ruled out but current situation highly favor septic shock. She is now on vasopressor support and IV fluids. Blood and urine cultures have been obtained again and are pending. She is on intravenous vancomycin. (2) Hypoglycemia associated with type 2 diabetes mellitus: Plan: Present on admission. Now resolved. Sliding scale coverage as needed. Basal insulin was previously down titrated (3) Dehydration: Plan: Initially resolved with IV fluids but IV fluids have been restarted due to septic shock (4) S/P cervical spinal fusion: Plan: Orthopedic spine surgery consultation pending. She recently had surgery at another facility for a C1-C2 fracture (5) Hypomagnesemia: Plan: Replacement therapy. Serial lab (6) Ambulatory dysfunction: Plan: Continue OT PT when able (7) C2 cervical fracture: Plan: Recent C1 and C2 fracture that was surgically repaired. Currently in a soft collar. Supportive care. Plan I spoke to the patient's mother by phone. She is now a DO NOT RESUSCITATE level although we we will continue to treat her. Prognosis is poor however. Admission and Anticipated Discharge Date Admission Date: January 31, 2024 Subjective Unfortunately, the patient is now in the ICU and requiring vasopressor support. She appears to have developed septic shock. I spoke to her mother by phone and she is now a DNR although we will continue to treat her but no CODE BLUE if her condition deteriorates. She is on intravenous vancomycin and IV fluids. Cardiac echo was obtained and the results are pending. Review of Systems 2 Review of Systems: The patient is unable at this time to answer any questions regarding review of systems Physical Exam 2 Physical Exam: General-minimally responsive. No fever HEENT-head atraumatic and normocephalic, pupils equal and reactive to light, extraocular muscles intact Neck-no lymphadenopathy or thyromegaly, trachea midline Chest-scattered bilateral rhonchi. No wheezing. No inspiratory rales. i Cardiac-tachycardic rate. Normal S1 and S2 Abdomen-hypoactive bowel sounds, no hepatosplenomegaly Extremities-no cyanosis, clubbing, or edema Neuro-minimally responsive. Cannot assess Psych-minimally responsive. Cannot assess Results & Data Results & Data Vital Signs (Past 12 Hours) Vital Signs Temp Pulse Pulse Resp BP BP Pulse Ox 02/05/24 15:00 38.1 C H 131 H 21 84/64 L 95 02/05/24 14:36 38.1 C H 131 H 17 91/65 L 97 02/05/24 14:09 38.1 C H 131 H 20 93/64 L 97 02/05/24 13:30 38.1 C H 129 H 25 H 72/56 L 97 02/05/24 13:03 38.2 C H 130 H 26 H 86/63 L 93 02/05/24 12:33 38.2 C H 130 H 29 H 89/68 L 96 02/05/24 12:06 38.2 C H 133 H 14 80/62 L 96 02/05/24 11:30 38.1 C H 129 H 24 77/61 L 96 02/05/24 11:03 38.0 C H 127 H 17 84/61 L 95 02/05/24 10:36 37.8 C H 125 H 24 97/61 L 94 02/05/24 10:15 37.8 C H 94 H 17 95/61 L 97 02/05/24 09:39 37.7 C H 91 H 24 93/59 L 96 02/05/24 09:03 37.7 C H 93 H 23 95/64 L 95 02/05/24 08:30 37.6 C H 92 H 20 90/61 L 98 02/05/24 08:03 37.6 C H 92 H 18 84/59 L 99 02/05/24 07:20 37.6 C H 94 H 18 99/64 L 98 02/05/24 06:45 37.8 C H 92 H 15 85/61 L 98 02/05/24 06:15 37.8 C H 93 H 16 105/64 98 02/05/24 06:00 37.8 C H 92 H 16 96/73 L 98 02/05/24 05:45 37.8 C H 96 H 16 97/58 L 98 02/05/24 05:37 94/65 L 02/05/24 05:30 37.8 C H 94 H 15 83/63 L 98 02/05/24 05:15 37.8 C H 98 H 22 103/65 97 02/05/24 05:00 37.8 C H 95 H 15 102/66 98 02/05/24 04:45 37.8 C H 95 H 20 106/64 98 02/05/24 04:30 37.8 C H 95 H 22 92/63 L 97 02/05/24 04:15 37.8 C H 99 H 18 101/69 98 02/05/24 04:15 37.8 C H 96 H 16 101/69 98 02/05/24 04:00 37.8 C H 95 H 18 84/60 L 99 O2 Del Method O2 Flow Rate 02/05/24 15:00 02/05/24 14:36 02/05/24 14:09 02/05/24 13:30 02/05/24 13:03 02/05/24 12:33 02/05/24 12:06 02/05/24 11:30 02/05/24 11:03 02/05/24 10:36 02/05/24 10:15 02/05/24 09:39 02/05/24 09:03 Room Air 02/05/24 08:30 02/05/24 08:03 02/05/24 07:20 02/05/24 06:45 Oxymask 02/05/24 06:15 Oxymask 2 02/05/24 06:00 Oxymask 2 02/05/24 05:45 Oxymask 2 02/05/24 05:37 02/05/24 05:30 Oxymask 2 02/05/24 05:15 Oxymask 2 02/05/24 05:00 Oxymask 2 02/05/24 04:45 Oxymask 2 02/05/24 04:30 Oxymask 2 02/05/24 04:15 Oxymask 2 02/05/24 04:15 Oxymask 2 02/05/24 04:00 Oxymask 2 Laboratory Results 02/05/24 00:55 02/05/24 14:09 PG Care Time/CCT Total # of Minutes Spent Total Time Spent with Patient: Total time spent is greater than 50% in coordination of care (as documented) at patient's floor/unit and/or counseling patient: Coding Level of Care Code 96076 SUB INP/OBS CARE 3/50MIN Diagnoses Sepsis due to urinary tract infection A41.9; N39.0 Hypoglycemia associated with type 2 diabetes mellitus E11.649 Dehydration E86.0 S/P cervical spinal fusion Z98.1 Hypomagnesemia E83.42 Ambulatory dysfunction R26.2 C2 cervical fracture S12.100A Encounter type: subsequent encounter Fracture alignment: posteriorly displaced Fracture morphology: type II dens Fracture type: closed (7) C2 cervical fracture Encounter type: subsequent encounter Fracture alignment: posteriorly displaced Fracture morphology: type II dens Fracture type: closed
[2024-02-05] MEDS: POTASSIUM CHLORIDE / WTR 20 MEQ/100 ML PLCT IV SCH (16:05)
--- NOTE | 2024-02-05 17:12 | XCELERA ---
[id number] \\[id number]
[2024-02-05] MEDS: PIPERACILLIN/TAZOBACTAM 4.5 GM/100 ML BAG IV SCH (20:35)
[2024-02-06 04:45] LABS: BUN Creatinine Ratio 22.6 (10-20); Calcium 8.6 mg/dl (8.6-10.3); Creatinine Clr Calc Pharmacy 55.2 ml/min; Magnesium 1.8 mg/dl (1.7-2.4); Phosphorus 2.4 mg/dl (2.5-4.9); Potassium 4.5 mmol/L (3.5-5.1)
[2024-02-06 05:52] LABS: Basophils % (auto) 0.5 %; Eosinophils # (auto) 0.02 K/uL (0.00-0.50); Eosinophils % (auto) 0.1 %; Hemoglobin 10.3 g/dl (12.0-16.0); Immature Granulocytes % (auto) 0.5 %; Lymphocytes # (auto) 1.87 K/uL (1.20-3.40); Lymphocytes % (auto) 9.6 %; Mean Corpuscular Hemoglobin 29.5 pg (25.0-34.0); Mean Corpuscular Hgb Conc 34.3 g/dL (32.0-36.0); Monocytes % (auto) 4.6 %; Neutrophils # (auto) 16.59 K/uL (1.40-6.50); Neutrophils % (auto) 84.7 %; Platelet Count 239 K/uL (130-400); RDW Coefficient of Variation 12.9 % (11.5-14.5); RDW Standard Deviation 40.2 fL (36.4-46.3); Red Blood Count 3.49 M/uL (4.20-5.40); White Blood Count 19.58 K/ul (4.8-10.8)
[2024-02-06] MEDS ORDERED: VANCOMYCIN 1,250mg in D5W 250mL (Use w/ NSS Shortage) IV SCH (08:00)
[2024-02-06] MEDS: LANTUS PER UNIT CHARGE SQ SCH (08:33)
[2024-02-06] MEDS: VANCOMYCIN 750 MG in D5W 250mL (Use w/ Shortage) IV SCH (08:46)
[2024-02-06] MEDS ORDERED: LANTUS PER UNIT CHARGE SQ SCH ×2 (09:00)
--- NOTE | 2024-02-06 09:47 | Critical Care Progress Note ---
Date of Service February 06, 2024 Assessment & Plan (1) Shock: (2) Hypoglycemia associated with type 2 diabetes mellitus: (3) S/P cervical spinal fusion: (4) Encephalopathy: (5) Type 2 diabetes mellitus, uncontrolled: Plan Reason Critically Ill: 73 YOF on HD # 5 admitted for possible sepsis, hypoglycemia, hypovolemia. Rapid Response secondary to diaphoresis, tachycardia, and hypotension- now requiring vasopressor support. Neuro - Metabolic Encephalopathy, C1/C2 fracture- s/p repair- stable CAM ICU: [facility] - Patient remains pleasantly confused, follows commands - Complains of neck pain- however with discussion of nursing this has been her normal - She has not received any narcotics prior to event - Tylenol for pain- Toradol discontinued Cardiac - Shock unspecified: Improving Shock- Cardiogenic vs. Distributive or combination of Cardiomyopathy -Echocardiogram reviewed, could be consistent with Takotsubo's cardiomyopathy Respiratory - - Normal ventilation and oxygenation with normal PH- doubt PE at this time as she is without hypoxia and VTE prophy with SCDS and Heparin has been provided since admission GI - NO acute needs RENAL/LYTES - NO acute needs - renal function is without LUTHER in setting of hypotension - electrolytes to be replaced per ICU protocol when they return if indicated -Patient with positive fluid balance we will discontinue additional IV fluids at this time - See below ID section - Smith placed for accurate BJ while on vasopressor agents ENDO - Hx DMII, - She was initially hypoglycemic on admission -then was hyperglycemic requiring insulin infusion - goal <180mg/Dl HEME - No concern at this time ID - Can't exclude sepsis source unspecified however will repeat urine with culture - Procalcitonin largely unremarkable, will repeat in a.m. -Culture data remains unremarkable -Elevated white count of unclear significance -Decreasing vasoactive requirements however remains febrile -Completed course of Rocephin, now on expanded coverage: Vancomycin and Zosyn -Abdominal exam unremarkable mild transaminitis resolved: History of cholecystectomy, no infiltrate on chest x-ray, no oxygen requirement -Reviewed orthospine notes -Repeat procalcitonin, ESR CRP, check lipase LFTs -Fungal and blood cultures pending Febrile illness LINES/IV ACCESS - PIV, CVL, Smith Continue use of these lines DVT PROPHYLAXIS - SCDs, Heparin 5000 units subq DISPO: ICU while requiring vasopressors CODE STATUS: DO NOT RESUSCITATE in event of cardiac arrest At this point patient is responding to supportive measures, it is within the realm of possibility that this could be stress-induced cardiomyopathy secondary to fever of unclear etiology. Continue anti-infectives for additional 24 hours we will reevaluate at that time. I have personally spent 55 minutes of critical care time in the direct management of this patient. This is a life/limb threatening event. This includes time spent evaluating patient, direct bedside care, chart review, placing orders, interpretation of diagnostic studies, discussion with consultants, patient, and family members, as well as other required patient management activities. This time is exclusive of all separately billable procedures, and teaching time and separate from and in addition to any other critical care service time. Admission and Anticipated Discharge Date Admission Date: January 31, 2024 Physical Exam Physical Exam: General: Arousable with light tactile stimuli Skin: Warm, dry, Head: Atraumatic Ears, nose, mouth and throat: airway patent Cardiovascular: Normal peripheral perfusion along vasoactives Respiratory: no respiratory distress Gastrointestinal: Non distended, nontender Musculoskeletal: No deformity Results & Data Results & Data Vital Signs (Past 12 Hours) Vital Signs Temp Pulse Pulse Resp BP BP BP 02/06/24 09:30 38.1 C H 79 0 L 02/06/24 09:15 38.1 C H 76 16 02/06/24 09:03 38.0 C H 83 18 02/06/24 09:00 121/66 02/06/24 08:57 38.0 C H 84 19 02/06/24 08:30 37.4 C 88 19 02/06/24 08:27 38.0 C H 94 H 19 02/06/24 08:00 37.9 C H 85 17 02/06/24 07:54 37.9 C H 83 15 02/06/24 07:33 38.0 C H 86 23 02/06/24 07:00 37.9 C H 89 18 02/06/24 06:00 37.7 C H 87 18 131/72 131/72 02/06/24 04:09 37.8 C H 86 23 104/67 02/06/24 03:00 37.4 C 91 H 16 121/79 02/06/24 02:00 37.2 C 71 10 L 130/80 02/06/24 01:09 37.1 C 94 H 14 119/79 02/06/24 00:00 37.9 C H 91 H 15 02/05/24 23:03 38.3 C H 164 H 43 H 02/05/24 22:27 38.3 C H 130 H 16 106/69 Pulse Ox O2 Del Method 02/06/24 09:30 95 02/06/24 09:15 95 02/06/24 09:03 93 02/06/24 09:00 02/06/24 08:57 93 02/06/24 08:30 93 02/06/24 08:27 94 Room Air 02/06/24 08:00 93 02/06/24 07:54 95 02/06/24 07:33 94 02/06/24 07:00 94 02/06/24 06:00 97 Room Air 02/06/24 04:09 94 02/06/24 03:00 96 02/06/24 02:00 95 02/06/24 01:09 96 02/06/24 00:00 95 02/05/24 23:03 100 02/05/24 22:27 95 Critical Care Results & Data Vital Signs (Past 12 Hours) Vital Signs Temp Pulse Pulse Resp BP BP BP 02/06/24 09:30 38.1 C H 79 0 L 02/06/24 09:15 38.1 C H 76 16 02/06/24 09:03 38.0 C H 83 18 02/06/24 09:00 121/66 02/06/24 08:57 38.0 C H 84 19 02/06/24 08:30 37.4 C 88 19 02/06/24 08:27 38.0 C H 94 H 19 02/06/24 08:00 37.9 C H 85 17 02/06/24 07:54 37.9 C H 83 15 02/06/24 07:33 38.0 C H 86 23 02/06/24 07:00 37.9 C H 89 18 02/06/24 06:00 37.7 C H 87 18 131/72 131/72 02/06/24 04:09 37.8 C H 86 23 104/67 02/06/24 03:00 37.4 C 91 H 16 121/79 02/06/24 02:00 37.2 C 71 10 L 130/80 02/06/24 01:09 37.1 C 94 H 14 119/79 02/06/24 00:00 37.9 C H 91 H 15 02/05/24 23:03 38.3 C H 164 H 43 H 02/05/24 22:27 38.3 C H 130 H 16 106/69 Pulse Ox O2 Del Method 02/06/24 09:30 95 02/06/24 09:15 95 02/06/24 09:03 93 02/06/24 09:00 02/06/24 08:57 93 02/06/24 08:30 93 02/06/24 08:27 94 Room Air 02/06/24 08:00 93 02/06/24 07:54 95 02/06/24 07:33 94 02/06/24 07:00 94 02/06/24 06:00 97 Room Air 02/06/24 04:09 94 02/06/24 03:00 96 02/06/24 02:00 95 02/06/24 01:09 96 02/06/24 00:00 95 02/05/24 23:03 100 02/05/24 22:27 95 Lab & Micro Results (Past 24 Hours) RBC 3.49 M/uL (4.20-5.40) L 02/06/24 WBC 19.58 K/ul (4.8-10.8) H 02/06/24 Hgb 10.3 g/dl (12.0-16.0) L 02/06/24 Hct 30.0 % (37.0-47.0) L 02/06/24 MCV 86.0 fL (80.0-100.0) 02/06/24 MCH 29.5 pg (25.0-34.0) 02/06/24 MCHC 34.3 g/dL (32.0-36.0) 02/06/24 RDW Standard Deviation 40.2 fL (36.4-46.3) 02/06/24 RDW Coefficient of Variation 12.9 % (11.5-14.5) 02/06/24 Plt Count 239 K/uL (130-400) 02/06/24 MPV 10.0 fL (9.4-12.4) 02/06/24 Neutrophils (%) (Auto) 84.7 % 02/06/24 Lymphocytes (%) (Auto) 9.6 % 02/06/24 Monocytes # (Auto) 0.90 K/uL (0.11-0.59) H 02/06/24 Eosinophils # (Auto) 0.02 K/uL (0.00-0.50) 02/06/24 Immature Granulocyte % (Auto) 0.5 % 02/06/24 Neutrophils # (Auto) 16.59 K/uL (1.40-6.50) H 02/06/24 Lymphocytes # (Auto) 1.87 K/uL (1.20-3.40) 02/06/24 Monocytes # (Auto) 0.90 K/uL (0.11-0.59) H 02/06/24 Eosinophils # (Auto) 0.02 K/uL (0.00-0.50) 02/06/24 Basophils # (Auto) 0.10 K/uL (0.00-0.20) 02/06/24 Immature Granulocyte # (Auto) 0.10 K/uL (0.01-0.20) 4 Na 129 mmol/L (136-145) L 02/06/24 K 4.5 mmol/L (3.5-5.1) 02/06/24 Cl 96 mmol/L (98-107) L 02/06/24 CO2 24 mmol/L (21-32) 02/06/24 Anion Gap 9 (3-11) 02/06/24 BUN 19 mg/dl (6-23) 02/06/24 Creatinine 0.84 mg/dl (0.6-1.2) 02/06/24 BUN/Creatinine Ratio 22.6 (10-20) H 02/06/24 Glu 139 mg/dl (70-99(Fasting)) H 02/06/24 Ca 8.6 mg/dl (8.6-10.3) 02/06/24 Phosphorus Level 2.4 mg/dl (2.5-4.9) L 02/06/24 Total Bilirubin 0.5 mg/dl (0.2-1.0) 02/05/24 Direct Bilirubin 0.0 mg/dl (0-0.2) 02/05/24 AST 23 U/L (13-39) 02/05/24 ALT 20 U/L (7-52) 02/05/24 Alkaline Phosphatase 347 U/L (34-104) H 02/05/24 TP 5.6 gm/dl (6.0-8.3) L 02/05/24 Albumin 3.0 gm/dl (3.4-5.0) L 02/05/24 Mg 1.8 mg/dl (1.7-2.4) 02/06/24 04:08 Calcium Level 8.6 mg/dl (8.6-10.3) 02/06/24 04:08 Venous Blood pH 7.32 (7.36-7.41) L 02/05/24 14:10 Venous Blood Partial Pressure CO2 43 mmHg (38-50) 02/05/24 14:1 0 Venous Blood Partial Pressure O2 30 mmHg 02/05/24 14:10 Venous Blood HCO3 22 mmol/L 02/05/24 14:10 Venous Blood Base Excess -3.9 mEq/L 02/05/24 14:10 Venous Blood Oxygen Saturation < 60.0 % 02/05/24 14:10 Microbiology 01/31/24 18:11 Aerobic Blood Culture - Final Blood No growth in Aerobic bottle after 5 days. Anaerobic Blood Culture - Final No growth in Anaerobic bottle after 5 days. 01/31/24 18:12 Aerobic Blood Culture - Final Blood No growth in Aerobic bottle after 5 days. Anaerobic Blood Culture - Final No growth in Anaerobic bottle after 5 days. 02/05/24 14:10 Fungal Smear - Final Blood I & O Totals 24 Hours 02/05/24 02/06/24 02/07/24 06:59 06:59 06:59 Intake Total 1407.8 / 1407.8 5245.492 / 5245.492 500.100 / 500.100 Output Total 476 / 476 700 / 700 Balance 931.8 / 931.8 4545.492 / 4545.492 500.100 / 500.100 Cumulative 01/31/24 16:11 thru 02/06/24 08:00 Intake Total 53699.559 Output Total 4127 Balance 9100.559 RT Ventilator Mngmt (Last Documented) Ventilator Ordered Settings Respiratory Rate 0 02/06/24 09:30 Ventilator - PT Measurements Respiratory Rate 0 Coding Level of Care Code 07512 CRITICAL CARE 1ST 30-74M Diagnoses Shock R57.9 Hypoglycemia associated with type 2 diabetes mellitus E11.649 S/P cervical spinal fusion Z98.1 Encephalopathy G93.40 Uncontrolled type 2 diabetes mellitus with hypoglycemia without coma E11.649 Coma presence: without coma Glycemic state: with hypoglycemia (5) Type 2 diabetes mellitus, uncontrolled Coma presence: without coma Glycemic state: with hypoglycemia Qualified Code(s): E11.649 - Type 2 diabetes mellitus with hypoglycemia without coma
[2024-02-06] MEDS: MAGNESIUM SULFATE / D5W 1 GM/100 ML BAG IV SCH (10:33)
--- NOTE | 2024-02-06 11:10 | Orthopedic Consultation ---
Date of Consultation February 06, 2024 Assessment & Plan (1) S/P cervical spinal fusion: Assessment status post C1-C2 posterior fusion. I did have the opportunity review her CAT scan of the cervical spine performed at [facility]. The instrumentation appears to be in place and there is maturation of the bone graft. Do not appreciate any evidence of significant fluid collection or infection. At this point her fusion appears to be stable and no specific precautions need to be taken. History of Present Illness Reason for Consultation: Status post cervical spine surgery with sepsis Attending Physician: Miguel Duckworth MD History of Present Illness This is a 73-year-old female that had surgery earlier this summer involving a posterior fusion C1-C2. She presents the hospital with evidence of sepsis and there is a concern as to the etiology. Patient at this time is nonverbal. All history is obtained by way of the chart. Allergies Allergy/AdvReac Type Severity Reaction Status Date / Time baclofen AdvReac Intermediate Hallucinati Verified 12/21/23 14:08 ng cyclobenzaprine AdvReac Intermediate Hallucinati Verified 12/21/23 14:08 ng Home Medications Medication Instructions Recorded Confirmed Type cholecalciferol (vitamin D3) 50 2,000 units PO DAILY 11/08/18 12/21/23 History mcg (2,000 unit) capsule cyanocobalamin (vitamin B-12) 1,000 mcg PO DAILY 11/08/18 12/21/23 History 1,000 mcg tablet aspirin 81 mg tablet,delayed 81 mg PO DAILY #90 tabs 06/23/19 12/21/23 Rx release venlafaxine 150 mg 150 mg PO BID 01/18/22 12/21/23 History capsule,extended release 24 hr buspirone 15 mg tablet 30 mg PO BID 03/28/22 12/21/23 History metformin 1,000 mg tablet 1,000 mg PO BID #180 tabs 10/24/22 12/21/23 Rx rosuvastatin 20 mg tablet 20 mg PO QAM #90 tabs 10/24/22 12/21/23 Rx esomeprazole magnesium 40 mg 40 mg PO DAILY #90 caps 01/16/23 12/21/23 Rx capsule,delayed release (Nexium) bupropion HCl 150 mg tablet,12 hr 300 mg PO DAILY 02/23/23 12/21/23 History sustained-release amoxicillin 500 mg capsule 2,000 mg PO DIRECTED PRN 1 HR 03/09/23 12/21/23 History PRIOR TO DENTAL PROCEDURES pen needle, diabetic 32 gauge x #400 ea 03/15/23 12/21/23 Rx 5/32" (BD Ultra-Fine Marleny Pen Needle) blood sugar diagnostic (OneTouch #600 ea 05/10/23 12/21/23 Rx Ultra Test strips) insulin lispro 100 unit/mL See Rx Instructions subcut TID 08/02/23 12/21/23 History subcutaneous pen (Humalog KwikPen (U-100) Insulin) blood-glucose meter #1 ea 08/10/23 12/21/23 Rx albuterol sulfate 90 mcg/actuation 2 puff inhalation Q4H PRN 10/10/23 12/21/23 History aerosol inhaler Shortness Of Breath Or Wheezing insulin glargine 100 unit/mL (3 35 unit subcut QPM 10/10/23 12/21/23 History mL) subcutaneous pen (Lantus Solostar U-100 Insulin) acetaminophen 500 mg tablet 1,000 mg (2 x 500 mg) PO TID PRN 11/30/23 12/21/23 Rx pain #90 tabs gabapentin 300 mg capsule 300 mg PO TID 12/21/23 12/21/23 History Patient History Medical History Anterolisthesis of lumbar spine Elevated troponin Fall C6 cervical fracture Acute anterior epistaxis Perianal abscess Vitiligo Venous insufficiency (chronic) (peripheral) NSTEMI (non-ST elevated myocardial infarction) Mixed conductive and sensorineural hearing loss of both ears Frequent falls Cardiomyopathy Dyslipidemia Hypertension Hiatal hernia Small GERD (gastroesophageal reflux disease) Depression Surgical History Hx of cardiac cath Mar 2018. Normal coronary arteries. History of total knee replacement RT TKA APPROX 15 YEARS AGO L TKA 01/23/2018 Family History Mother Hypertension Cancer Melanoma Father Breast cancer Cancer Melanoma Family/Other Breast cancer Unknown Osteoarthritis Denies family history of Ovarian cancer Prostate cancer Heart disease Colorectal cancer Lung disease Stroke Asthma Social History Smoking Status: Never smoker Second Hand Exposure: No; Do You Dip or Chew Tobacco: No; Hx Alcohol Use: No Hx Substance Use: No Preferred Language: Uzbek Communication Ability: Effective Communication Ability Comment: D/t facial edema from fall pt cannot see well enough to sign documents now Visual Impairment: No Limitations Hearing Ability: Normal Living Specialist Required: No Beliefs That Will Affect Care: None marital status: Current Living Situation: Custodial Current Living Situation Comment: Home with mother current occupational status: disabled Feels Safe at Home: Yes Childhood Exposure to Second-Hand Smoke: No Diet: regular caffeine: Yes Dental Care, Regularly: Yes Physical Activity Frequency: 3-4 Times per Week Physical Activity Frequency Comment: walk Seatbelt Use: always Sunscreen Use: No (not in the sun) Do you think of yourself as: straight/heterosexual Assistive Devices: Walker Physical Exam Physical Exam: On exam patient is not responsive to questioning. I did inspect her posterior cervical spine and the incision. It appears to be intact. There is no swelling erythema or drainage. Results & Data Vital Signs (Past 12 Hours) Vital Signs Temp Pulse Pulse Resp BP BP BP 02/06/24 09:30 38.1 C H 79 0 L 02/06/24 09:15 38.1 C H 76 16 02/06/24 09:03 38.0 C H 83 18 02/06/24 09:00 121/66 02/06/24 08:57 38.0 C H 84 19 02/06/24 08:30 37.4 C 88 19 02/06/24 08:27 38.0 C H 94 H 19 02/06/24 08:00 37.9 C H 85 17 02/06/24 07:54 37.9 C H 83 15 02/06/24 07:33 38.0 C H 86 23 02/06/24 07:00 37.9 C H 89 18 02/06/24 06:00 37.7 C H 87 18 131/72 131/72 02/06/24 04:09 37.8 C H 86 23 104/67 02/06/24 03:00 37.4 C 91 H 16 121/79 02/06/24 02:00 37.2 C 71 10 L 130/80 02/06/24 01:09 37.1 C 94 H 14 119/79 02/06/24 00:00 37.9 C H 91 H 15 Pulse Ox O2 Del Method 02/06/24 09:30 95 02/06/24 09:15 95 02/06/24 09:03 93 02/06/24 09:00 02/06/24 08:57 93 02/06/24 08:30 93 02/06/24 08:27 94 Room Air 02/06/24 08:00 93 02/06/24 07:54 95 02/06/24 07:33 94 02/06/24 07:00 94 02/06/24 06:00 97 Room Air 02/06/24 04:09 94 02/06/24 03:00 96 02/06/24 02:00 95 02/06/24 01:09 96 02/06/24 00:00 95
[2024-02-06] MEDS: SODIUM PHOSPHATE 21 MMOL in SODIUM CHLORIDE 0.9% 500 ML IV ONE (11:11)
--- NOTE | 2024-02-06 11:32 | Cardiology Progress Note ---
Date of Service February 06, 2024 Assessment & Plan (1) Shock: (2) Nonischemic cardiomyopathy: (3) Elevated troponin: Plan: peaked 1064 around 1am, downtrending - no ST elevation seen on EKG although with the conduction abnormality this could be missed (4) Hypomagnesemia: Plan 1. Shock: Still on pressors, I do not believe this is cardiogenic. 2. Cardiomyopathy: Presumably due to her underlying condition, perhaps sepsis. 3. Elevated troponin: Not consistent with an acute cardiac event. Admission and Anticipated Discharge Date Admission Date: January 31, 2024 Subjective She is responsive today although not conversational Physical Exam Physical Exam: Constitutional: In no distress. Does not answer questions. Pulmonary: Rhonchi on auscultation bilaterally. Cardiac: Regular rhythm with no murmur, gallop or rub. Abdomen: Soft, nontender with normal bowel sounds. Extremities: No edema. Skin: No rash, ecchymoses or petechiae. EXTR Results & Data Vital Signs (Past 12 Hours) Vital Signs Temp Pulse Pulse Resp BP BP BP 02/06/24 09:30 38.1 C H 79 0 L 02/06/24 09:15 38.1 C H 76 16 02/06/24 09:03 38.0 C H 83 18 02/06/24 09:00 121/66 02/06/24 08:57 38.0 C H 84 19 02/06/24 08:30 37.4 C 88 19 02/06/24 08:27 38.0 C H 94 H 19 02/06/24 08:00 37.9 C H 85 17 02/06/24 07:54 37.9 C H 83 15 02/06/24 07:33 38.0 C H 86 23 02/06/24 07:00 37.9 C H 89 18 02/06/24 06:00 37.7 C H 87 18 131/72 131/72 02/06/24 04:09 37.8 C H 86 23 104/67 02/06/24 03:00 37.4 C 91 H 16 121/79 02/06/24 02:00 37.2 C 71 10 L 130/80 02/06/24 01:09 37.1 C 94 H 14 119/79 02/06/24 00:00 37.9 C H 91 H 15 Pulse Ox O2 Del Method 02/06/24 09:30 95 02/06/24 09:15 95 02/06/24 09:03 93 02/06/24 09:00 02/06/24 08:57 93 02/06/24 08:30 93 02/06/24 08:27 94 Room Air 02/06/24 08:00 93 02/06/24 07:54 95 02/06/24 07:33 94 02/06/24 07:00 94 02/06/24 06:00 97 Room Air 02/06/24 04:09 94 02/06/24 03:00 96 02/06/24 02:00 95 02/06/24 01:09 96 02/06/24 00:00 95 Laboratory Results Cardiac Enzymes 02/05/24 02/05/24 02/05/24 Range/Units 11:55 14:09 17:55 AST 23 (13-39) U/L Troponin I High Sens 957.0 H* 953.5 H* (0-14) pg/ml CBC 02/06/24 Range/Units 04:08 WBC 19.58 H (4.8-10.8) K/ul RBC 3.49 L (4.20-5.40) M/uL Hgb 10.3 L D (12.0-16.0) g/dl Hct 30.0 L (37.0-47.0) % Plt Count 239 (130-400) K/uL Neut # (Auto) 16.59 H (1.40-6.50) K/uL Lymph # (Auto) 1.87 (1.20-3.40) K/uL [place] # (Auto) 0.90 H (0.11-0.59) K/uL Eos # (Auto) 0.02 (0.00-0.50) K/uL Baso # (Auto) 0.10 (0.00-0.20) K/uL Comprehensive Metabolic Panel 02/05/24 02/06/24 Range/Units 14:09 04:08 Sodium 122 L D 129 L (136-145) mmol/L Potassium 3.6 4.5 D (3.5-5.1) mmol/L Chloride 92 L 96 L (98-107) mmol/L Carbon Dioxide 23 24 (21-32) mmol/L BUN 17 19 (6-23) mg/dl Creatinine 1.06 0.84 (0.6-1.2) mg/dl Glucose 499 H* 139 H (70-99(Fasting)) mg/dl Calcium 8.9 8.6 (8.6-10.3) mg/dl Direct Bilirubin 0.0 (0-0.2) mg/dl AST 23 (13-39) U/L ALT 20 (7-52) U/L Alkaline Phosphatase 347 H (34-104) U/L Total Protein 5.6 L (6.0-8.3) gm/dl Albumin 3.0 L (3.4-5.0) gm/dl Intake and Output 02/05/24 02/06/24 02/06/24 22:59 06:59 14:59 Intake Total 905.367 / 5245.492 1704.457 / 5245.492 601.305 / 601.305 Output Total 125 / 700 125 / 700 Balance 780.367 / 4545.492 1579.457 / 4545.492 601.305 / 601.305 Intake: IV 905.367 / 5245.492 1704.457 / 5245.492 601.305 / 601.305 Insulin Regular 250 units In 24.527 / 27.984 3.457 / 27.984 7.848 / 7.848 Sodium Chloride 0.9% 247.5 ml @ 1.7 UNITS/HR 1.7 mls/hr IV . Q24H [facility] Rx#:[id number] Norepinephrine/D5w 4 mg In 250 588.477 / 1442.145 500 / 1442.145 351.205 / 351.205 ml @ 0.21 MCG/KG/MIN 51.896 mls /hr IV .Q4H50M [facility] Rx#:[id number] Piperacillin/Tazobactam 4.5 gm 100 / 100 In 100 ml @ 25 mls/hr IV Q8H [facility] Rx#:[id number] Plasma-Lyte A 1,000 ml @ 80 mls 1000 / 1000 236 / 236 /hr IV .[id number] [facility] Rx#: [id number] Potassium Chloride / Wtr 20 meq 200 / 200 In 100 ml @ 50 mls/hr IV Q2H [facility] Rx#:[id number] Vasopressin 20 units In Sodium 92.363 / 193.363 101 / 193.363 6.252 / 6.252 Chloride 0.9% 100 ml @ 0.04 UNIT/MIN 12.12 mls/hr IV . Q8H20M [facility] Rx#:[id number] Oral 0 / 0 0 / 0 0 / 0 Output: Urine Amount (Catheter) 125 / 700 125 / 700 Smith/Indwelling 125 / 700 125 / 700 Diagnostic Findings Telemetry: Sinus rhythm since around midnight, rapid heart rate prior PG Care Time/CCT Total # of Minutes Spent Total Time Spent with Patient: Total time spent is greater than 50% in coordination of care (as documented) at patient's floor/unit and/or counseling patient: Coding Level of Care Code 38508 SUB INP/OBS CARE 2/35MIN Diagnoses Shock R57.9 Nonischemic cardiomyopathy I42.8 Elevated troponin R77.8 Hypomagnesemia E83.42
--- NOTE | 2024-02-06 11:36 | Pharmacy Report ---
Pharmacy Glycemic Short Note 2 - Date of Service February 06, 2024 - Glycemic Short BSG Results (Last 24 hours): 02/05/24 02/05/24 02/05/24 13:14 14:09 15:10 Glucose 499 H* POC Glucose 358 H* POC Glucose (other) 477 H* 360 H* 02/05/24 02/05/24 02/05/24 16:05 17:12 18:02 Glucose POC Glucose POC Glucose (other) 324 H 275 H 256 H 02/05/24 02/05/24 02/05/24 19:13 20:40 22:15 Glucose POC Glucose POC Glucose (other) 186 H 186 H 102 H 02/05/24 02/05/24 02/06/24 22:42 23:26 00:05 Glucose POC Glucose POC Glucose (other) 95 117 H 125 H 02/06/24 02/06/24 02/06/24 02:11 04:08 04:12 Glucose 139 H POC Glucose POC Glucose (other) 149 H 143 H 02/06/24 08:17 Glucose POC Glucose POC Glucose (other) 164 H OUTPATIENT ANTIDIABETIC REGIMEN: * Lantus 35 units SC HS * Humalo units SC for BSG < 250 mg/dL or 18 units SC for BSG > 250 mg/dL TID * Metformin 1000 mg PO BID HbA1c: * 9.1% (01/12/24) ASSESSMENT: 02/05: * Patient received approximately 75 units of insulin yesterday, 30 units basal + 20 units bolus + ~25 units from insulin drip. BSGs were in the mid 300's most of the day but finally started improving last evening. * Remains on high doses of vasopressors today. Plan is to continue insulin drip until vasopressor requirements have significantly decreased. Highly unlikely that drip will be discontinued today. Remains on Vancomycin and Zosyn. * Continue with 30 units of basal per day. 02/04: * 73 yo F admitted on 01/31/24 secondary to sepsis. Pharmacy was consulted on 02/03/24 for glycemic control but then consult was discontinued the following day. Pharmacy has been consulted again to assist with inpatient glycemic management today. Patient is a Type 2 diabetic as an outpatient. Please refer to outpatient regimen and most recent HbA1c above. * Fasting BSG this AM was elevated at 363 mg/dL. Received 30 units of basal total this AM plus 20 units of bolus between breakfast and lunch. Patient was transferred to ICU overnight and condition has declined. Requiring large amounts of pressors right now in the form of norepinephrine and vasopressin. This may be altering the absorption of subcutaneous insulin. BSGs are not improving, with lunchtime BSG up to 358 mg/dL. * At this time, we will start an insulin drip for hyperglycemia. 2.5 unit IVP followed by 2.5 units/hr to start. Novolog per calculator to cover carbs. Lantus will be changed to 20 units daily starting tomorrow. PLAN FOR INPATIENT GLYCEMIC CONTROL: * Hold outpatient oral diabetes medications * Insulin drip for hyperglycemia * Goal range: 110-180 mg/dL * Stress level: HIGH * Current rate: 1.7 units/hr * Basal insulin * Lantus 30 units SC daily * Bolus insulin * Per insulin calculator for now * * * *
--- NOTE | 2024-02-06 12:33 | Hospitalist Progress Note ---
Date of Service February 06, 2024 Assessment & Plan (1) Sepsis due to urinary tract infection: Plan: Initially ruled out but current situation highly favors septic shock. She is now on vasopressor support and IV fluids. Blood and urine cultures have been obtained again and are negative to date although final reports are pending. Orthopedic spine consultation has been requested due to recent C-spine surgery and there is no evidence of active infection. Spine CT scan is negative for abscess formation. She is on intravenous vancomycin and Zosyn. (2) Hypoglycemia associated with type 2 diabetes mellitus: Plan: Present on admission. Now resolved. Sliding scale coverage as needed. Basal insulin was previously down titrated (3) Dehydration: Plan: Initially resolved with IV fluids but IV fluids have been restarted due to septic shock (4) S/P cervical spinal fusion: Plan: Orthopedic spine surgery consultation noted. C-spine CT scan negative for any signs of infection or abscess formation. She recently had surgery at another facility for a C1-C2 fracture (5) Hypomagnesemia: Plan: Replacement therapy. Serial lab (6) Ambulatory dysfunction: Plan: Continue OT /PT when able (7) C2 cervical fracture: Plan: Recent C1 and C2 fracture that was surgically repaired. Supportive care. Plan I spoke to the patient's mother by phone yesterday, February 04. She is now a DO NOT RESUSCITATE level although we we will continue to treat her. Prognosis is poor however. Admission and Anticipated Discharge Date Admission Date: January 31, 2024 Subjective Unfortunately, the patient is unresponsive to me. She remains on pressor support which is being weaned off. Cardiology consultation noted. Ejection fraction is low at 25% and findings are consistent with Takotsubo stress cardiomyopathy. She remains on intravenous vancomycin and Zosyn. Urine and blood cultures obtained February 04 are negative to date and final results are pending Review of Systems 2 Review of Systems: The patient is unable at this time to answer any questions regarding review of systems Physical Exam 2 Physical Exam: General-unresponsive. No fever HEENT-head atraumatic and normocephalic, pupils equal and reactive to light, extraocular muscles intact Neck-no lymphadenopathy or thyromegaly, trachea midline Chest-scattered bilateral rhonchi. No wheezing. No inspiratory rales. i Cardiac-tachycardic rate. Normal S1 and S2 Abdomen-hypoactive bowel sounds, no hepatosplenomegaly Extremities-no cyanosis, clubbing, or edema Neuro-minimally responsive. Cannot assess Psych-minimally responsive. Cannot assess Results & Data Results & Data Vital Signs (Past 12 Hours) Vital Signs Temp Pulse Pulse Resp BP BP BP 02/06/24 11:30 38.4 C H 87 20 119/67 02/06/24 11:15 38.3 C H 90 14 02/06/24 11:00 38.3 C H 88 20 02/06/24 10:45 38.1 C H 85 19 02/06/24 10:33 38.2 C H 89 22 02/06/24 10:24 38.2 C H 83 18 02/06/24 10:00 38.1 C H 76 14 02/06/24 09:45 38.1 C H 78 13 02/06/24 09:30 38.1 C H 79 0 L 02/06/24 09:15 38.1 C H 76 16 02/06/24 09:03 38.0 C H 83 18 02/06/24 09:00 121/66 02/06/24 08:57 38.0 C H 84 19 02/06/24 08:30 37.4 C 88 19 02/06/24 08:27 38.0 C H 94 H 19 02/06/24 08:00 37.9 C H 85 17 02/06/24 07:54 37.9 C H 83 15 02/06/24 07:33 38.0 C H 86 23 02/06/24 07:00 37.9 C H 89 18 02/06/24 06:00 37.7 C H 87 18 131/72 131/72 02/06/24 04:09 37.8 C H 86 23 104/67 02/06/24 03:00 37.4 C 91 H 16 121/79 02/06/24 02:00 37.2 C 71 10 L 130/80 02/06/24 01:09 37.1 C 94 H 14 119/79 Pulse Ox O2 Del Method 02/06/24 11:30 93 02/06/24 11:15 94 02/06/24 11:00 93 02/06/24 10:45 92 02/06/24 10:33 94 02/06/24 10:24 96 02/06/24 10:00 95 Room Air 02/06/24 09:45 96 02/06/24 09:30 95 02/06/24 09:15 95 02/06/24 09:03 93 02/06/24 09:00 02/06/24 08:57 93 02/06/24 08:30 93 02/06/24 08:27 94 Room Air 02/06/24 08:00 93 02/06/24 07:54 95 02/06/24 07:33 94 02/06/24 07:00 94 02/06/24 06:00 97 Room Air 02/06/24 04:09 94 02/06/24 03:00 96 02/06/24 02:00 95 02/06/24 01:09 96 Laboratory Results 02/06/24 04:08 02/06/24 04:08 PG Care Time/CCT Total # of Minutes Spent Total Time Spent with Patient: Total time spent is greater than 50% in coordination of care (as documented) at patient's floor/unit and/or counseling patient: Coding Level of Care Code 36221 SUB INP/OBS CARE 2/35MIN Diagnoses Sepsis due to urinary tract infection A41.9; N39.0 Hypoglycemia associated with type 2 diabetes mellitus E11.649 Dehydration E86.0 S/P cervical spinal fusion Z98.1 Hypomagnesemia E83.42 Ambulatory dysfunction R26.2 C2 cervical fracture S12.100A Encounter type: subsequent encounter Fracture alignment: posteriorly displaced Fracture morphology: type II dens Fracture type: closed (7) C2 cervical fracture Encounter type: subsequent encounter Fracture alignment: posteriorly displaced Fracture morphology: type II dens Fracture type: closed
[2024-02-06 14:28] LABS: Base Excess VBG -0.2 mEq/L; HCO3 VBG 23 mmol/L; Oxygen Saturation VBG 60.6 %; PCO2 VBG 31 mmHg (38-50); PO2 VBG 38 mmHg; pH VBG 7.47 (7.36-7.41)
[2024-02-06 15:01] LABS: Albumin Level 2.8 gm/dl (3.4-5.0); Bilirubin Direct 0.1 mg/dl (0-0.2); Bilirubin,Total 0.5 mg/dl (0.2-1.0)
[2024-02-06 15:07] LABS: C Reactive Protein 12.96 mg/dl (0-0.5)
[2024-02-06 15:21] LABS: Fibrinogen 521 mg/dl (184-400); Prothrombin Time 10.7 Seconds (9.0-12.0)
[2024-02-07 04:27] LABS: Basophils # (auto) 0.03 K/uL (0.00-0.20); Basophils % (auto) 0.3 %; Eosinophils # (auto) 0.02 K/uL (0.00-0.50); Eosinophils % (auto) 0.2 %; Hematocrit (blood only) 23.3 % (37.0-47.0); Hemoglobin 7.9 g/dl (12.0-16.0); Immature Granulocytes # (auto) 0.05 K/uL (0.01-0.20); Immature Granulocytes % (auto) 0.4 %; Lymphocytes # (auto) 1.16 K/uL (1.20-3.40); Mean Corpuscular Hemoglobin 29.3 pg (25.0-34.0); Mean Corpuscular Hgb Conc 33.9 g/dL (32.0-36.0); Mean Corpuscular Volume 86.3 fL (80.0-100.0); Mean Platelet Volume 10.2 fL (9.4-12.4); Monocytes # (auto) 0.55 K/uL (0.11-0.59); Monocytes % (auto) 4.7 %; Neutrophils # (auto) 9.78 K/uL (1.40-6.50); Neutrophils % (auto) 84.4 %; Platelet Count 149 K/uL (130-400); RDW Coefficient of Variation 13.2 % (11.5-14.5); RDW Standard Deviation 41.1 fL (36.4-46.3); White Blood Count 11.59 K/ul (4.8-10.8)
[2024-02-07 04:47] LABS: Polychromasia 1+
[2024-02-07 04:48] LABS: BUN Creatinine Ratio 18.8 (10-20); Calcium 8.3 mg/dl (8.6-10.3); Creatinine Clr Calc Pharmacy 54.6 ml/min; Magnesium 1.5 mg/dl (1.7-2.4); Potassium 3.6 mmol/L (3.5-5.1)
[2024-02-07] MEDS: POTASSIUM CHLORIDE / WTR 20 MEQ/100 ML PLCT IV SCH (05:07)
[2024-02-07] MEDS: MAGNESIUM SULFATE / D5W 1 GM/100 ML BAG IV SCH (05:07)
[2024-02-07 06:38] LABS: Basophils # (auto) 0.03 K/uL (0.00-0.20); Basophils % (auto) 0.3 %; Eosinophils # (auto) 0.02 K/uL (0.00-0.50); Eosinophils % (auto) 0.2 %; Hemoglobin 7.4 g/dl (12.0-16.0); Immature Granulocytes # (auto) 0.06 K/uL (0.01-0.20); Immature Granulocytes % (auto) 0.6 %; Lymphocytes # (auto) 1.14 K/uL (1.20-3.40); Lymphocytes % (auto) 10.5 %; Mean Corpuscular Hemoglobin 28.9 pg (25.0-34.0); Mean Corpuscular Hgb Conc 33.6 g/dL (32.0-36.0); Mean Corpuscular Volume 85.9 fL (80.0-100.0); Mean Platelet Volume 10.1 fL (9.4-12.4); Monocytes # (auto) 0.55 K/uL (0.11-0.59); Monocytes % (auto) 5.1 %; Neutrophils # (auto) 9.05 K/uL (1.40-6.50); Neutrophils % (auto) 83.3 %; Platelet Count 138 K/uL (130-400); RDW Coefficient of Variation 13.1 % (11.5-14.5); RDW Standard Deviation 40.9 fL (36.4-46.3); Red Blood Count 2.56 M/uL (4.20-5.40); White Blood Count 10.85 K/ul (4.8-10.8)
[2024-02-07 06:58] LABS: RBC Morphology Unremarkable
[2024-02-07] MEDS ORDERED: VANCOMYCIN 1,250mg in D5W 250mL (Use w/ NSS Shortage) IV SCH (08:00)
--- NOTE | 2024-02-07 08:21 | Critical Care Progress Note ---
Date of Service February 07, 2024 Assessment & Plan (1) Shock: (2) Hypoglycemia associated with type 2 diabetes mellitus: (3) S/P cervical spinal fusion: (4) Encephalopathy: (5) Type 2 diabetes mellitus, uncontrolled: Plan Reason Critically Ill: 73 YOF on HD # 5 admitted for possible sepsis, hypoglycemia, hypovolemia. Rapid Response secondary to diaphoresis, tachycardia, and hypotension- now requiring vasopressor support. Neuro - Metabolic Encephalopathy, C1/C2 fracture- s/p repair- stable -Decreased responsiveness compared to yesterday Cardiac - Shock unspecified: Improving, weaned off vasoactives this morning Shock- Cardiogenic vs. Distributive or combination of Cardiomyopathy -Echocardiogram reviewed, could be consistent with Takotsubo's cardiomyopathy Respiratory - - Normal ventilation and oxygenation with normal PH- doubt PE at this time as she is without hypoxia and VTE prophy with SCDS and Heparin has been provided since admission GI - NO acute needs RENAL/LYTES - NO acute needs -Hyponatremia -Hypomagnesemia -Globally positive fluid balance - See below ID section - Smith placed for accurate BJ while on vasopressor agents ENDO - Hx DMII, - She was initially hypoglycemic on admission -then was hyperglycemic requiring insulin infusion - goal <180mg/Dl HEME -anemia: No obvious source of blood loss -Recent bowel movement no indication of GI bleeding -Adding reticulocyte count, type and screen already ordered -All cell lines decreased on a.m. labs today including repeat ID - Can't exclude sepsis source unspecified however will repeat urine with culture - Procalcitonin largely unremarkable, will repeat in a.m. -Culture data remains unremarkable -Abdominal exam unremarkable mild transaminitis resolved: History of cholecystectomy, no infiltrate on chest x-ray, no oxygen requirement -Normal lactic acid -LFTs unremarkable, C-reactive protein elevated, procalcitonin mildly elevated however not in range associated with severe sepsis, ESR mildly elevated however not greater than patient's age -Fungal and blood cultures no growth to date Febrile illness -Patient finished course of Rocephin she has been on several days of broad- spectrum antibiotics without clear source, I feel it is most prudent to discontinue antibiotics as this could also contribute to some aspect of bone marrow suppression. I feel the hypotension is most consistent with takosubo stress cardiomyopathy as opposed to ongoing infection LINES/IV ACCESS - PIV, CVL, Smith Continue use of these lines DVT PROPHYLAXIS - SCDs, Heparin 5000 units subq DISPO: ICU while requiring vasopressors CODE STATUS: DO NOT RESUSCITATE in event of cardiac arrest Updated patient's mother and had discussion with her yesterday. Patient's mother and family support at bedside were questioning if the patient would want ongoing aggressive measures undertaken. I am concerned about the long-term prognosis, patient is not actively eating, and concerned she is decreasing her conditioning and losing lean muscle mass. We discussed possibilities of artificial feeding, this is not necessarily in line with the patient's wishes. Hope to further to have discussion today regarding long-term goals of care I have personally spent 45 minutes of critical care time in the direct management of this patient. This is a life/limb threatening event. This includes time spent evaluating patient, direct bedside care, chart review, placing orders, interpretation of diagnostic studies, discussion with consultants, patient, and family members, as well as other required patient management activities. This time is exclusive of all separately billable procedures, and teaching time and separate from and in addition to any other critical care service time. Admission and Anticipated Discharge Date Admission Date: January 31, 2024 Subjective Patient marginally responsive with deep tactile stimuli Physical Exam Physical Exam: General: Glascow Coma Scale: Eyes: 2, Verbal 2, Motor 5, Total 9 Skin: Cool, dry, Head: Atraumatic Ears, nose, mouth and throat: airway patent Cardiovascular: Normal capillary refill on vasoactive Respiratory: no respiratory distress Gastrointestinal: Non distended, nontender Musculoskeletal: No deformity Results & Data Results & Data Vital Signs (Past 12 Hours) Vital Signs Temp Pulse Resp BP Pulse Ox O2 Del Method 02/07/24 06:00 37.6 C H 84 24 109/53 L 96 Room Air 02/07/24 05:30 37.7 C H 79 18 114/57 L 95 Room Air 02/07/24 05:00 37.9 C H 81 20 109/47 L 95 Room Air 02/07/24 04:30 37.9 C H 73 22 100/51 L 97 Room Air 02/07/24 04:00 37.9 C H 75 15 105/48 L 94 Room Air 02/07/24 03:33 37.8 C H 79 18 106/63 95 Room Air 02/07/24 03:00 37.8 C H 77 15 108/61 96 Room Air 02/07/24 02:30 37.9 C H 83 15 114/66 95 Room Air 02/07/24 02:00 37.9 C H 80 14 110/61 95 Room Air 02/07/24 01:30 37.9 C H 76 20 104/58 L 95 Room Air 02/07/24 01:00 37.8 C H 82 15 111/65 98 Room Air 02/07/24 00:00 37.6 C H 73 16 118/52 L 97 Room Air 02/06/24 23:30 37.6 C H 71 20 132/66 98 Room Air 02/06/24 23:00 37.4 C 86 20 118/69 97 Room Air 02/06/24 22:30 37.5 C 80 24 93/55 L 95 Room Air 02/06/24 22:09 37.6 C H 77 19 119/60 99 Room Air 02/06/24 21:30 37.8 C H 65 20 101/61 97 Room Air 02/06/24 21:00 37.9 C H 76 20 106/60 94 Room Air Critical Care Results & Data Vital Signs (Past 12 Hours) Vital Signs Temp Pulse Resp BP Pulse Ox O2 Del Method 02/07/24 08:30 93/42 L 02/07/24 08:30 93/42 L 02/07/24 08:03 37.5 C 74 23 93 02/07/24 08:00 118/49 L 02/07/24 08:00 118/49 L 02/07/24 07:48 37.5 C 80 22 92 02/07/24 07:30 37.5 C 87 24 74 L 02/07/24 07:15 37.5 C 79 18 97 02/07/24 07:00 115/57 L 02/07/24 07:00 115/57 L 02/07/24 07:00 115/57 L 02/07/24 06:00 37.6 C H 84 24 109/53 L 96 Room Air 02/07/24 05:30 37.7 C H 79 18 114/57 L 95 Room Air 02/07/24 05:00 37.9 C H 81 20 109/47 L 95 Room Air 02/07/24 04:30 37.9 C H 73 22 100/51 L 97 Room Air 02/07/24 04:00 37.9 C H 75 15 105/48 L 94 Room Air 02/07/24 03:33 37.8 C H 79 18 106/63 95 Room Air 02/07/24 03:00 37.8 C H 77 15 108/61 96 Room Air 02/07/24 02:30 37.9 C H 83 15 114/66 95 Room Air 02/07/24 02:00 37.9 C H 80 14 110/61 95 Room Air 02/07/24 01:30 37.9 C H 76 20 104/58 L 95 Room Air 02/07/24 01:00 37.8 C H 82 15 111/65 98 Room Air 02/07/24 00:00 37.6 C H 73 16 118/52 L 97 Room Air 02/06/24 23:30 37.6 C H 71 20 132/66 98 Room Air 02/06/24 23:00 37.4 C 86 20 118/69 97 Room Air 02/06/24 22:30 37.5 C 80 24 93/55 L 95 Room Air 02/06/24 22:09 37.6 C H 77 19 119/60 99 Room Air 02/06/24 21:30 37.8 C H 65 20 101/61 97 Room Air 02/06/24 21:00 37.9 C H 76 20 106/60 94 Room Air Lab & Micro Results (Past 24 Hours) RBC 3.42 M/uL (4.20-5.40) L 02/08/24 WBC 7.35 K/ul (4.8-10.8) 02/08/24 Hgb 10.1 g/dl (12.0-16.0) L 02/08/24 Hct 30.4 % (37.0-47.0) L 02/08/24 MCV 88.9 fL (80.0-100.0) 02/08/24 MCH 29.5 pg (25.0-34.0) 02/08/24 MCHC 33.2 g/dL (32.0-36.0) 02/08/24 RDW Standard Deviation 44.1 fL (36.4-46.3) 02/08/24 RDW Coefficient of Variation 13.6 % (11.5-14.5) 02/08/24 Plt Count 188 K/uL (130-400) 02/08/24 MPV 10.1 fL (9.4-12.4) 02/08/24 Neutrophils (%) (Auto) 73.2 % 02/08/24 Lymphocytes (%) (Auto) 17.4 % 02/08/24 Monocytes # (Auto) 0.46 K/uL (0.11-0.59) 02/08/24 Eosinophils # (Auto) 0.16 K/uL (0.00-0.50) 02/08/24 Immature Granulocyte % (Auto) 0.4 % 02/08/24 Neutrophils # (Auto) 5.38 K/uL (1.40-6.50) 02/08/24 Lymphocytes # (Auto) 1.28 K/uL (1.20-3.40) 02/08/24 Monocytes # (Auto) 0.46 K/uL (0.11-0.59) 02/08/24 Eosinophils # (Auto) 0.16 K/uL (0.00-0.50) 02/08/24 Basophils # (Auto) 0.04 K/uL (0.00-0.20) 02/08/24 Immature Granulocyte # (Auto) 0.03 K/uL (0.01-0.20) 4 Na 141 mmol/L (136-145) 02/08/24 K 3.6 mmol/L (3.5-5.1) 02/08/24 Cl 109 mmol/L (98-107) H 02/08/24 CO2 28 mmol/L (21-32) 02/08/24 Anion Gap 4 (3-11) 02/08/24 BUN 12 mg/dl (6-23) 02/08/24 Creatinine 0.79 mg/dl (0.6-1.2) 02/08/24 BUN/Creatinine Ratio 15.2 (10-20) 02/08/24 Glu 137 mg/dl (70-99(Fasting)) H 02/08/24 Ca 9.5 mg/dl (8.6-10.3) 02/08/24 Mg 2.1 mg/dl (1.7-2.4) 02/08/24 04:33 Calcium Level 9.5 mg/dl (8.6-10.3) 02/08/24 04:33 Microbiology 02/05/24 14:29 Aerobic Blood Culture - Preliminary Blood No growth in Aerobic bottle after 24 hours. Anaerobic Blood Culture - Final 02/05/24 14:04 Aerobic Blood Culture - Preliminary Blood No growth in Aerobic bottle after 24 hours. Anaerobic Blood Culture - Preliminary No growth in Anaerobic bottle after 24 hours. 02/05/24 00:52 Urine Culture - Preliminary Urine,Straight Cath No growth - Less than 1,000 colonies/mL, Final report to follow. 01/31/24 18:11 Aerobic Blood Culture - Final Blood No growth in Aerobic bottle after 5 days. Anaerobic Blood Culture - Final No growth in Anaerobic bottle after 5 days. 01/31/24 18:12 Aerobic Blood Culture - Final Blood No growth in Aerobic bottle after 5 days. Anaerobic Blood Culture - Final No growth in Anaerobic bottle after 5 days. I & O Totals 24 Hours 02/06/24 02/07/24 02/08/24 06:59 06:59 06:59 Intake Total 5245.492 / 5245.492 3875.487 / 3875.487 93.775 / 93.775 Output Total 700 / 700 917 / 917 Balance 4545.492 / 4545.492 2958.487 / 2958.487 93.775 / 93.775 Cumulative 01/31/24 16:11 thru 02/07/24 07:24 Intake Total 31310.721 Output Total 5044 Balance 43768.721 RT Ventilator Mngmt (Last Documented) Ventilator Ordered Settings Respiratory Rate 23 02/07/24 08:03 Ventilator - PT Measurements Respiratory Rate 23 Coding Level of Care Code 13530 CRITICAL CARE 1ST 30-74M Diagnoses Shock R57.9 Hypoglycemia associated with type 2 diabetes mellitus E11.649 S/P cervical spinal fusion Z98.1 Encephalopathy G93.40 Uncontrolled type 2 diabetes mellitus with hypoglycemia without coma E11.649 Coma presence: without coma Glycemic state: with hypoglycemia (5) Type 2 diabetes mellitus, uncontrolled Coma presence: without coma Glycemic state: with hypoglycemia Qualified Code(s): E11.649 - Type 2 diabetes mellitus with hypoglycemia without coma
--- NOTE | 2024-02-07 08:31 | Electrocardiogram Report ---
Test Reason : Blood Pressure : */* mmHG Vent. Rate : 141 BPM Atrial Rate : 120 BPM P-R Int : * ms QRS Dur : 126 ms QT Int : 350 ms P-R-T Axes : * 69 255 degrees QTcB Int : 536 ms Wide QRS tachycardia vs. aflutter with IVCD Nonspecific ST and T wave abnormality Abnormal ECG When compared with ECG of 31-Jan-2024 17:54, Wide QRS tachycardia has replaced Sinus rhythm Vent. rate has increased by 47 bpm Reconfirmed by Jeffrey Wren ([id number]) on 02/07/2024 8:35:25 AM Referred By: REFERRED SELF Confirmed By: Jeffrey Wren
--- NOTE | 2024-02-07 08:34 | Electrocardiogram Report ---
Test Reason : Blood Pressure : */* mmHG Vent. Rate : 106 BPM Atrial Rate : 106 BPM P-R Int : 164 ms QRS Dur : 110 ms QT Int : 366 ms P-R-T Axes : 52 56 -26 degrees QTcB Int : 486 ms Sinus tachycardia Non-specific intra-ventricular conduction delay Abnormal ECG When compared with ECG of 04-Feb-2024 23:01, Sinus rhythm now present Confirmed by Jeffrey Wren ([id number]) on 02/07/2024 8:34:24 AM Referred By: REFERRED SELF Confirmed By: Jeffrey Wren
--- NOTE | 2024-02-07 08:43 | Electrocardiogram Report ---
Test Reason : Blood Pressure : */* mmHG Vent. Rate : 92 BPM Atrial Rate : 92 BPM P-R Int : 178 ms QRS Dur : 122 ms QT Int : 438 ms P-R-T Axes : 37 56 233 degrees QTcB Int : 541 ms Normal sinus rhythm Non-specific intra-ventricular conduction delay Prolonged QT Abnormal ECG When compared with ECG of 05-Feb-2024 01:03, No significant change Confirmed by Jeffrey Wren ([id number]) on 02/07/2024 8:43:06 AM Referred By: REFERRED SELF Confirmed By: Jeffrey Wren
[2024-02-07] MEDS: INSULIN ASPART PER UNIT CHARGE SC SCH (08:48)
--- NOTE | 2024-02-07 08:52 | Electrocardiogram Report ---
Test Reason : Blood Pressure : */* mmHG Vent. Rate : 129 BPM Atrial Rate : 113 BPM P-R Int : * ms QRS Dur : 132 ms QT Int : 342 ms P-R-T Axes : * 25 199 degrees QTcB Int : 501 ms Possible Junctional tachycardia Non-specific intra-ventricular conduction block Abnormal ECG When compared with ECG of 05-Feb-2024 06:37, Possible Junctional tachycardia has replaced Sinus rhythm Confirmed by Jeffrey Wren ([id number]) on 02/07/2024 8:51:58 AM Referred By: REFERRED SELF Confirmed By: Jeffrey Wren
[2024-02-07] MEDS: VANCOMYCIN HCL 1,000 MG/270 ML BAG IV SCH (09:00)
--- NOTE | 2024-02-07 10:44 | Pharmacy Report ---
Pharmacy Glycemic Short Note 2 - Date of Service February 07, 2024 - Glycemic Short BSG Results (Last 24 hours): 02/06/24 02/06/24 02/06/24 12:06 14:06 15:57 Glucose POC Glucose POC Glucose (other) 224 H 255 H 293 H 02/06/24 02/06/24 02/06/24 17:26 18:43 20:16 Glucose POC Glucose POC Glucose (other) 179 H 164 H 127 H 02/06/24 02/06/24 02/06/24 21:20 22:07 22:58 Glucose POC Glucose POC Glucose (other) 135 H 158 H 138 H 02/07/24 02/07/24 02/07/24 00:03 01:59 02:59 Glucose POC Glucose POC Glucose (other) 122 H 95 96 02/07/24 02/07/24 02/07/24 04:13 06:14 09:06 Glucose 117 H POC Glucose 122 H 170 H POC Glucose (other) 156 H OUTPATIENT ANTIDIABETIC REGIMEN: * Lantus 35 units SC HS * Humalo units SC for BSG < 250 mg/dL or 18 units SC for BSG > 250 mg/dL TID * Metformin 1000 mg PO BID HbA1c: * 9.1% (01/12/24) ASSESSMENT: 02/06: * BSGs well controlled over last 24 hours * Insulin drip weaned off overnight. Norepi requirements decreased over the course of the day yesterday and was weaned off overnight. Vasopressin weaned off this AM as well. * ABX discontinued this AM * Patient remains NPO at this time. * Will return to SQ basal/bolus regimen at this time 02/05: * Patient received approximately 75 units of insulin yesterday, 30 units basal + 20 units bolus + ~25 units from insulin drip. BSGs were in the mid 300's most of the day but finally started improving last evening. * Remains on high doses of vasopressors today. Plan is to continue insulin drip until vasopressor requirements have significantly decreased. Highly unlikely that drip will be discontinued today. Remains on Vancomycin and Zosyn. * Continue with 30 units of basal per day. 02/04: * 73 yo F admitted on 01/31/24 secondary to sepsis. Pharmacy was consulted on 02/03/24 for glycemic control but then consult was discontinued the following day. Pharmacy has been consulted again to assist with inpatient glycemic management today. Patient is a Type 2 diabetic as an outpatient. Please refer to outpatient regimen and most recent HbA1c above. * Fasting BSG this AM was elevated at 363 mg/dL. Received 30 units of basal total this AM plus 20 units of bolus between breakfast and lunch. Patient was transferred to ICU overnight and condition has declined. Requiring large amounts of pressors right now in the form of norepinephrine and vasopressin. This may be altering the absorption of subcutaneous insulin. BSGs are not improving, with lunchtime BSG up to 358 mg/dL. * At this time, we will start an insulin drip for hyperglycemia. 2.5 unit IVP followed by 2.5 units/hr to start. Novolog per calculator to cover carbs. Lantus will be changed to 20 units daily starting tomorrow. PLAN FOR INPATIENT GLYCEMIC CONTROL: * Hold outpatient oral diabetes medications * DC insulin drip * Basal insulin * Lantus 30 units SC daily for now based upon prior insulin needs this admission - may need to reduce if prolonged NPO * Bolus insulin * NovoLog per scale q 4 hrs * Goal Range: Low 110 mg/dL - High 140 mg/dL * Correction Factor: 20 mg/dL/unit * Nutritional / Prandial insulin per carb ratio of 1 unit per 8 grams CHO consumed
--- NOTE | 2024-02-07 11:32 | Hospitalist Progress Note ---
Date of Service February 07, 2024 Assessment & Plan (1) Sepsis due to urinary tract infection: Plan: Initially ruled out but current situation highly favors septic shock. She is now on vasopressor support and IV fluids. Blood and urine cultures have been obtained again and are negative to date although final reports are pending. Orthopedic spine consultation appreciated. Cervical spine CT scan unremarkable. No evidence of any postoperative infection or abscess. She remains on intravenous vancomycin and Zosyn. (2) Hypoglycemia associated with type 2 diabetes mellitus: Plan: Present on admission. Now resolved. Sliding scale coverage as needed. Basal insulin was previously down titrated (3) Dehydration: Plan: Initially resolved with IV fluids but IV fluids have been restarted due to suspected septic shock (4) S/P cervical spinal fusion: Plan: Orthopedic spine surgery consultation noted. C-spine CT scan negative for any signs of infection or abscess formation. She recently had surgery at another facility for a C1-C2 fracture (5) Hypomagnesemia: Plan: Replacement therapy. Serial lab (6) Ambulatory dysfunction: Plan: Continue OT /PT when able (7) C2 cervical fracture: Plan: Recent C1 and C2 fracture that was surgically repaired. Supportive care. (8) Encephalopathy: Plan: Appears to be metabolic. Supportive care. Repeat head CT scan today, February 06 Plan I spoke to the patient's mother by phone on February 04. She is now a DO NOT RESUSCITATE level although we we will continue to treat her. Prognosis is poor however. Admission and Anticipated Discharge Date Admission Date: January 31, 2024 Subjective The patient groans with sternal rub but is otherwise unresponsive. Case discussed with cardiology. Will repeat head CT scan today, February 06, 2 make sure there has been no intervening [employer] event. Previous head CT scan was done on January 30 and revealed only age-related changes. She remains on pressor support with Levophed and vasopressin. Hemoglobin is drifted down to 7.4. No overt GI bleeding however. Review of Systems 2 Review of Systems: The patient is unable at this time to answer any questions regarding review of systems Physical Exam 2 Physical Exam: General-grimaces with sternal rubbing. Nonverbal. No fever HEENT-head atraumatic and normocephalic, pupils equal and reactive to light, extraocular muscles intact Neck-no lymphadenopathy or thyromegaly, trachea midline Chest-scattered bilateral rhonchi. No wheezing. No inspiratory rales. i Cardiac-tachycardic rate. Normal S1 and S2 Abdomen-hypoactive bowel sounds, no hepatosplenomegaly Extremities-no cyanosis, clubbing, or edema Neuro-minimally responsive. Cannot assess Psych-minimally responsive. Cannot assess Results & Data Results & Data Vital Signs (Past 12 Hours) Vital Signs Temp Pulse Resp BP Pulse Ox O2 Del Method 02/07/24 08:30 93/42 L 02/07/24 08:30 93/42 L 02/07/24 08:03 37.5 C 74 23 93 02/07/24 08:00 118/49 L 02/07/24 08:00 118/49 L 02/07/24 07:48 37.5 C 80 22 92 02/07/24 07:30 37.5 C 87 24 74 L 02/07/24 07:15 37.5 C 79 18 97 02/07/24 07:00 115/57 L 02/07/24 07:00 115/57 L 02/07/24 07:00 115/57 L 02/07/24 06:00 37.6 C H 84 24 109/53 L 96 Room Air 02/07/24 05:30 37.7 C H 79 18 114/57 L 95 Room Air 02/07/24 05:00 37.9 C H 81 20 109/47 L 95 Room Air 02/07/24 04:30 37.9 C H 73 22 100/51 L 97 Room Air 02/07/24 04:00 37.9 C H 75 15 105/48 L 94 Room Air 02/07/24 03:33 37.8 C H 79 18 106/63 95 Room Air 02/07/24 03:00 37.8 C H 77 15 108/61 96 Room Air 02/07/24 02:30 37.9 C H 83 15 114/66 95 Room Air 02/07/24 02:00 37.9 C H 80 14 110/61 95 Room Air 02/07/24 01:30 37.9 C H 76 20 104/58 L 95 Room Air 02/07/24 01:00 37.8 C H 82 15 111/65 98 Room Air 02/07/24 00:00 37.6 C H 73 16 118/52 L 97 Room Air 02/06/24 23:30 37.6 C H 71 20 132/66 98 Room Air Laboratory Results 02/07/24 06:23 02/07/24 04:13 PG Care Time/CCT Total # of Minutes Spent Total Time Spent with Patient: Total time spent is greater than 50% in coordination of care (as documented) at patient's floor/unit and/or counseling patient: Coding Level of Care Code 55727 SUB INP/OBS CARE 2/35MIN Diagnoses Sepsis due to urinary tract infection A41.9; N39.0 Hypoglycemia associated with type 2 diabetes mellitus E11.649 Dehydration E86.0 S/P cervical spinal fusion Z98.1 Hypomagnesemia E83.42 Ambulatory dysfunction R26.2 C2 cervical fracture S12.100A Encounter type: subsequent encounter Fracture alignment: posteriorly displaced Fracture morphology: type II dens Fracture type: closed Encephalopathy G93.40 (7) C2 cervical fracture Encounter type: subsequent encounter Fracture alignment: posteriorly displaced Fracture morphology: type II dens Fracture type: closed
--- NOTE | 2024-02-07 12:08 | Cardiology Progress Note ---
Date of Service February 07, 2024 Assessment & Plan (1) Nonischemic cardiomyopathy: (2) Demand ischemia: Plan BP normotensive off pressors. Elevated troponin likely demand ischemia secondary to hypotension in the context of pre-existing nonischemic cardiomyopathy. No specific cardiac recommendations, will sign off. Please contact if change in cardiac status. Admission and Anticipated Discharge Date Admission Date: January 31, 2024 Subjective Patient nonverbal. Opens eyes briefly to tactile stimuli. Off pressors. Physical Exam Physical Exam: Skin: no ecchymoses or generalized lesions. HEENT: unremarkable. Neck: JVP just above the clavicle at 30 degrees, no carotid bruits. Lungs: clear bilaterally. Cardiac: regular rhythm, normal S1-2, no murmur. Abdomen: benign. Extremities: no edema, pulses intact. Neurologic: As per HPI. Results & Data Laboratory Results Hemoglobin 7.4. Normal electrolytes, BUN 16, creatinine 0.85. PG Care Time/CCT Total # of Minutes Spent Total Time Spent with Patient: Total time spent is greater than 50% in coordination of care (as documented) at patient's floor/unit and/or counseling patient: Coding Level of Care Code 01010 SUB INP/OBS CARE 2/35MIN Diagnoses Nonischemic cardiomyopathy I42.8 Demand ischemia I24.89
--- NOTE | 2024-02-07 12:25 | CT Scan Report ---
CT head/brain wo con CLINICAL HISTORY: 73 years-old Female with unresponsive. Acutely altered mental status TECHNIQUE: Multiple axial CT images of the head were obtained without contrast. A dose lowering tech nique was utilized adhering to the principles of ALARA. CT DOSE: 1406.31 mGy.cm COMPARISON: 01/31/2024 FINDINGS: No acute intracranial hemorrhage, midline shift, intracranial mass, hydrocephalus, territorial ischem ia or abnormal extra-axial collection. Motion degraded exam. Involutional changes with chronic microv ascular ischemic disease and unchanged ventriculomegaly. The calvarium is intact. Partially imaged cervical spinal fusion hardware. The paranasal sinuses, mas toid air cells, and middle ear cavities are clear. IMPRESSION: No acute intracranial abnormality identified. ACT 112: Negative or not required by law. The above report was generated using voice recognition software. It may contain grammatical, syntax o r spelling errors. Electronically signed by: Saurabh Hylton M.D. 02/07/2024 12:23 PM
--- NOTE | 2024-02-07 16:28 | Electrocardiogram Report ---
Test Reason : Blood Pressure : */* mmHG Vent. Rate : 80 BPM Atrial Rate : 79 BPM P-R Int : * ms QRS Dur : 64 ms QT Int : 408 ms P-R-T Axes : * 30 44 degrees QTcB Int : 470 ms Poor data quality, interpretation may be adversely affected Sinus rhythm Low voltage QRS Abnormal ECG When compared with ECG of 05-Feb-2024 14:43, Non-specific intra-ventricular conduction delay no longer present Junctional tachycardia no longer present Confirmed by Jeffrey Wren ([id number]) on 02/07/2024 4:28:19 PM Referred By: REFERRED SELF Confirmed By: Jeffrey Wren
[2024-02-07] MEDS: DEXTROSE 50% 50 ML SYRINGE IV PRN (23:41)
[2024-02-08 05:04] LABS: Basophils # (auto) 0.04 K/uL (0.00-0.20); Basophils % (auto) 0.5 %; Eosinophils # (auto) 0.16 K/uL (0.00-0.50); Eosinophils % (auto) 2.2 %; Hematocrit (blood only) 30.4 % (37.0-47.0); Hemoglobin 10.1 g/dl (12.0-16.0); Immature Granulocytes # (auto) 0.03 K/uL (0.01-0.20); Immature Granulocytes % (auto) 0.4 %; Lymphocytes # (auto) 1.28 K/uL (1.20-3.40); Lymphocytes % (auto) 17.4 %; Mean Corpuscular Hemoglobin 29.5 pg (25.0-34.0); Mean Corpuscular Hgb Conc 33.2 g/dL (32.0-36.0); Mean Corpuscular Volume 88.9 fL (80.0-100.0); Mean Platelet Volume 10.1 fL (9.4-12.4); Monocytes # (auto) 0.46 K/uL (0.11-0.59); Monocytes % (auto) 6.3 %; Neutrophils # (auto) 5.38 K/uL (1.40-6.50); Neutrophils % (auto) 73.2 %; Platelet Count 188 K/uL (130-400); RDW Coefficient of Variation 13.6 % (11.5-14.5); RDW Standard Deviation 44.1 fL (36.4-46.3); Red Blood Count 3.42 M/uL (4.20-5.40); Reticulocyte % 1.98 % (0.50-2.00); White Blood Count 7.35 K/ul (4.8-10.8)
[2024-02-08 05:16] LABS: BUN Creatinine Ratio 15.2 (10-20); Calcium 9.5 mg/dl (8.6-10.3); Creatinine Clr Calc Pharmacy 60.9 ml/min; Magnesium 2.1 mg/dl (1.7-2.4); Potassium 3.6 mmol/L (3.5-5.1)
[2024-02-08] MEDS: POTASSIUM CHLORIDE / WTR 20 MEQ/100 ML PLCT IV SCH (06:32)
--- NOTE | 2024-02-08 06:39 | Critical Care Progress Note ---
Date of Service February 08, 2024 Assessment & Plan (1) Shock: (2) Nonischemic cardiomyopathy: (3) Demand ischemia: (4) Encephalopathy: (5) Hypoglycemia associated with type 2 diabetes mellitus: (6) S/P cervical spinal fusion: (7) Type 2 diabetes mellitus, uncontrolled: Plan Reason Critically Ill: 73 YOF admitted for possible sepsis, hypoglycemia, hypovolemia. Rapid Response secondary to diaphoresis, tachycardia, and hypotension- requiring vasopressor support. Neuro - Metabolic Encephalopathy, C1/C2 fracture- s/p repair- stable - AOx1 but appears more alert compared to documentation from yesterday Cardiac - Shock unspecified: Again required pressor support intermittently overnight, continue NE as needed to maintain MAP>65, discontinue Vasopressin Shock- Cardiogenic vs. Distributive or combination Cardiomyopathy -Echocardiogram reviewed, could be consistent with Takotsubo's cardiomyopathy Respiratory - - Normal ventilation and oxygenation - no acute concerns GI - - ERCP September 20, 2023: 2 stents removed from common bile duct 2 plastic biliary stents were placed into the left hepatic duct, complete occlusion of the right hepatic duct - LFTs appear to have been historically unremarkable for the most part, however significantly elevated Alk phos >1000 prior to ERCP - Recheck hepatic function panel, obtain RUQ US to evaluate biliary tree - GI consulted, ?whether biliary pathology could be contributing to current presentation - Patient has been NPO for several days, consider initiating tube feeds pending goals of care discussion with family. Palliative consult also placed. RENAL/LYTES - NO acute needs -Hyponatremia -Hypomagnesemia -Globally positive fluid balance - Smith placed for accurate BJ while on vasopressor agents, adequate urine output over last 24 hours ENDO - Hx DMII, - She was initially hypoglycemic on admission - since then, primarily hyperglycemic requiring insulin, occasional hypoglycemia - goal <180mg/Dl - Will check random cortisol level to r/o adrenal insufficiency as potential contributing factor HEME -anemia: AM hemoglobin improved, 10.1 - no obvious source of blood loss ID - Can't exclude sepsis, source unclear but WBC count normalized and patient appeared to show some clinical improvement on Vanc + Zosyn. - Will repeat lactate, blood and fungal cultures + check 1,3-B-D glucan - resume Vanc and Zosyn, empirically start Caspofungin x10 days LINES/IV ACCESS - PIV, CVL, Smith Continue use of these lines DVT PROPHYLAXIS - SCDs, Lovenox DISPO: ICU while requiring vasopressors CODE STATUS: DO NOT RESUSCITATE in event of cardiac arrest Admission and Anticipated Discharge Date Admission Date: January 31, 2024 Supervising Physician Co-Signing Physician Notes Dr. Cisneros was resident physician during care of patient. I separately evaluated patient for whatley portions of the history and the exam. I was present during the critical portion of medical decision making, and I discussed the case with the resident. I generally agree with the findings and plan. Patient's white count has normalized H&H improved: I suspect there was lab error in the previous drop. Patient's blood pressure is low, I am unclear the etiology again I do not believe that this is true sepsis more possibly stress- induced cardiomyopathy. Discussed with the patient's mother yesterday the possibility of palliative care. She is having increasing frequency of hospitalizations. I believe the patient is within the last 3 months of her life expectancy. Patient's mother also question whether this could be related to gallbladder issues and stent. Mother reports that this was placed approximately September of this year Patient had ERCP done in August and at [facility]: There is a scanned note from September 20, 2023: 2 stents removed from common bile duct 2 plastic biliary stents were placed into the left hepatic duct, complete occlusion of the right hepatic duct, plan at that time was to have a return in 3 months for repeat ERCP and stent exchange. LFTs have by enlarge part been unremarkable. We will obtain repeat LFTs. lipase, repeat lactate, right upper quadrant ultrasound to evaluate common bile duct. And consult GI for any additional input as far as etiology of biliary contribution to the patient's current state. Patient mildly hypothermic today given history of fevers and hypothermia and question of infectious etiology will repeat fungal blood culture send 1 3 beta D glucan and empirically start the patient on 10 days of caspofungin. Patient has not volitionally eaten in several days, I think it is appropriate to supply supplemental nutrition if we want to be aggressive we will revisit this with mother and ideally place a course a feeding tube and start trickle feeds. Additionally will repeat blood cultures patient improved on 48-hour hours of vancomycin and Zosyn reinitiate both of those medications and continue for 10-day course Palliative care also discussing treatment options with mother as she appears to be feeling significantly invasive procedures or not in the patient's long-term best interests. Patient critically ill secondary to need for vasoactive medication. I have personally spent 45 minutes of critical care time in the direct management of this patient. This is a life/limb threatening event. This in cludes time spent evaluating patient, direct bedside care, chart review, placing orders, interpretation of diagnostic studies, discussion with consultants, patient, and/or family members regarding treatment decisions, as well as other required patient management activities. This time is exclusive of all separately billable procedures, and teaching time and separate from and in addition to any other critical care service time. Subjective Patient oriented to self but not to time or place. Denies pain, fevers/chills, urinary sx, shortness of breath. Review of Systems Review of Systems: as per HPI Physical Exam Constitutional: + frail appearing and comfortable; no ac verónica distress Respiratory: normal respiratory effort; no respiratory distress and no labored breathing Skin: no rashes, warm and dry Neurologic: AOx1, spontaneously opens eyes, speaks but not always coherently Results & Data Results & Data Vital Signs (Past 12 Hours) Vital Signs Temp Pulse Resp BP Pulse Ox O2 Del Method 02/08/24 05:06 35.9 C L 84 16 99 02/08/24 05:00 96/48 L 02/08/24 04:57 35.8 C L 71 11 L 99 02/08/24 04:51 35.8 C L 60 16 95 02/08/24 04:30 113/72 02/08/24 04:21 35.8 C L 64 18 99 02/08/24 04:12 35.8 C L 77 19 92 02/08/24 04:00 114/56 L 02/08/24 03:36 35.9 C L 62 17 99 02/08/24 03:31 116/56 L 02/08/24 03:31 116/56 L 02/08/24 03:30 35.9 C L 77 18 98 02/08/24 03:03 36.0 C L 62 19 95 02/08/24 03:00 106/55 L 02/08/24 03:00 106/55 L 02/08/24 02:54 36.0 C L 69 31 H 99 02/08/24 02:45 36.0 C L 55 L 20 96 11/15/24 02:30 133/74 02/08/24 02:27 36.1 C L 53 L 24 95 02/08/24 02:12 36.1 C L 55 L 18 96 02/08/24 02:00 123/57 L 02/08/24 01:57 36.1 C L 56 L 16 100 02/08/24 01:36 36.1 C L 57 L 17 98 02/08/24 01:03 36.0 C L 68 20 100 02/08/24 01:00 122/57 L 02/08/24 01:00 122/57 L 02/08/24 00:54 36.0 C L 58 L 19 99 02/08/24 00:41 113/58 L 02/08/24 00:30 83/49 L 02/08/24 00:30 83/49 L 02/08/24 00:00 71 02/07/24 23:57 35.8 C L 72 14 97 02/07/24 23:34 96/49 L 02/07/24 23:34 96/49 L 02/07/24 23:34 96/49 L 02/07/24 23:33 35.8 C L 74 16 98 02/07/24 23:30 89/63 L 02/07/24 23:30 89/63 L 02/07/24 23:06 35.9 C L 70 23 98 02/07/24 23:00 114/55 L 02/07/24 23:00 114/55 L 02/07/24 22:54 36.0 C L 63 17 99 02/07/24 22:36 36.0 C L 65 22 100 02/07/24 22:30 100/66 02/07/24 22:30 100/66 02/07/24 22:30 100/66 02/07/24 22:24 36.1 C L 74 17 99 02/07/24 22:17 109/53 L 02/07/24 22:12 36.3 C L 79 25 H 97 02/07/24 21:30 36.8 C 64 16 97 02/07/24 21:30 113/58 L 02/07/24 21:30 113/58 L 02/07/24 21:03 37.1 C 66 18 97 02/07/24 21:00 104/57 L 02/07/24 20:42 37.3 C 69 15 96 02/07/24 20:32 95/58 L 02/07/24 20:30 37.3 C 72 21 97 02/07/24 20:18 37.4 C 66 16 95 02/07/24 20:00 94/48 L 02/07/24 19:57 37.4 C 76 16 97 02/07/24 19:51 37.5 C 71 17 99 02/07/24 19:45 99/53 L 02/07/24 19:45 99/53 L 02/07/24 19:30 85/43 L 02/07/24 19:21 37.5 C 80 22 99 02/07/24 19:20 Room Air 02/07/24 19:06 37.5 C 78 18 99 02/07/24 19:00 90/49 L Resident Activity Tracking Resident Involvement: Resident Care Provided Care Provided: Adult Hospital Medicine (7) Type 2 diabetes mellitus, uncontrolled Coma presence: without coma Glycemic state: with hypoglycemia Qualified Code(s): E11.649 - Type 2 diabetes mellitus with hypoglycemia without coma
--- NOTE | 2024-02-08 08:24 | Palliative Care Consultation ---
Date of Consultation February 08, 2024 Assessment & Plan (1) Encephalopathy: (2) Shock: (3) Sepsis due to urinary tract infection: (4) S/P cervical spinal fusion: Plan Medical management per primary team. No family present at bedside today, attempt to contact pt's mother/NOK by phone unsuccessful. VM left, no return call recieved. Will attempt to revisit GOC on 02/11/24. History of Present Illness Reason for Consultation: goals of care Requesting Physician: Gabriel Triana DO Attending Physician: Miguel Duckworth MD History of Present Illness The patient is a 73-year-old female with a past medical history of cervical spinal fusion, Perianal abscess, Venous insufficiency (chronic), C1 and C2 cervical fracture on 10/10/2023, Cardiomyopathy, Dyslipidemia, CKD, NSTEMI, diabetes mellitus type 2, HTN, diabetic peripheral neuropathy, gastroparesis, BL sensorineural hearing loss, Perianal abscess, GERD and asthma. She was brought to the emergency department via ambulance on 01/31/24, due to confusion. Palliative care has been consulted for assistance with establishing GOC in the patient with frequent hospitalization and multiple comorbidities. Allergies Allergy/AdvReac Type Severity Reaction Status Date / Time baclofen AdvReac Intermediate Hallucinati Verified 12/21/23 14:08 ng cyclobenzaprine AdvReac Intermediate Hallucinati Verified 12/21/23 14:08 ng Home Medications Medication Instructions Recorded Confirmed Type cholecalciferol (vitamin D3) 50 2,000 units PO DAILY 11/08/18 12/21/23 History mcg (2,000 unit) capsule cyanocobalamin (vitamin B-12) 1,000 mcg PO DAILY 11/08/18 12/21/23 History 1,000 mcg tablet aspirin 81 mg tablet,delayed 81 mg PO DAILY #90 tabs 06/23/19 12/21/23 Rx release venlafaxine 150 mg 150 mg PO BID 01/18/22 12/21/23 History capsule,extended release 24 hr buspirone 15 mg tablet 30 mg PO BID 03/28/22 12/21/23 History metformin 1,000 mg tablet 1,000 mg PO BID #180 tabs 10/24/22 02/08/24 Rx rosuvastatin 20 mg tablet 20 mg PO QAM #90 tabs 10/24/22 12/21/23 Rx esomeprazole magnesium 40 mg 40 mg PO DAILY #90 caps 01/16/23 12/21/23 Rx capsule,delayed release (Nexium) bupropion HCl 150 mg tablet,12 hr 300 mg PO DAILY 02/23/23 12/21/23 History sustained-release amoxicillin 500 mg capsule 2,000 mg PO DIRECTED PRN 1 HR 03/09/23 12/21/23 History PRIOR TO DENTAL PROCEDURES pen needle, diabetic 32 gauge x #400 ea 03/15/23 12/21/23 Rx 32" (BD Ultra-Fine Marleny Pen Needle) blood sugar diagnostic (OneTouch #600 ea 05/10/23 12/21/23 Rx Ultra Test strips) insulin lispro 100 unit/mL See Rx Instructions subcut TID 08/02/23 02/08/24 History subcutaneous pen (Humalog KwikPen (U-100) Insulin) blood-glucose meter #1 ea 08/10/23 12/21/23 Rx albuterol sulfate 90 mcg/actuation 2 puff inhalation Q4H PRN 10/10/23 12/21/23 History aerosol inhaler Shortness Of Breath Or Wheezing insulin glargine 100 unit/mL (3 25 unit subcut QPM 10/10/23 02/08/24 History mL) subcutaneous pen (Lantus Solostar U-100 Insulin) acetaminophen 500 mg tablet 1,000 mg (2 x 500 mg) PO TID PRN 11/30/23 12/21/23 Rx pain #90 tabs gabapentin 300 mg capsule 300 mg PO TID 12/21/23 12/21/23 History Patient History Medical History Anterolisthesis of lumbar spine Elevated troponin Fall C6 cervical fracture Acute anterior epistaxis Perianal abscess Vitiligo Venous insufficiency (chronic) (peripheral) NSTEMI (non-ST elevated myocardial infarction) Mixed conductive and sensorineural hearing loss of both ears Frequent falls Cardiomyopathy Dyslipidemia Hypertension Hiatal hernia Small GERD (gastroesophageal reflux disease) Depression Surgical History Hx of cardiac cath Mar 2018. Normal coronary arteries. History of total knee replacement RT TKA APPROX 15 YEARS AGO L TKA 01/23/2018 Family History Mother Hypertension Cancer Melanoma Father Breast cancer Cancer Melanoma Family/Other Breast cancer Unknown Osteoarthritis Denies family history of Ovarian cancer Prostate cancer Heart disease Colorectal cancer Lung disease Stroke Asthma Social History Smoking Status: Never smoker Second Hand Exposure: No; Do You Dip or Chew Tobacco: No; Hx Alcohol Use: No Hx Substance Use: No Preferred Language: Bruneian Communication Ability: Effective Communication Ability Comment: D/t facial edema from fall pt cannot see well enough to sign documents now Visual Impairment: No Limitations Hearing Ability: Normal Community Living Coach Required: No Beliefs That Will Affect Care: None marital status: Current Living Situation: Correction Current Living Situation Comment: Home with mother current occupational status: disabled Feels Safe at Home: Yes Childhood Exposure to Second-Hand Smoke: No Diet: regular caffeine: Yes Dental Care, Regularly: Yes Physical Activity Frequency: 3-4 Times per Week Physical Activity Frequency Comment: walk Seatbelt Use: always Sunscreen Use: No (not in the sun) Do you think of yourself as: straight/heterosexual Assistive Devices: Walker Review of Systems Review of Systems: JOSEFINA due to pt mental status. Physical Exam Physical Exam: General-grimaces with sternal rubbing. Nonverbal. No fever HEENT-head atraumatic and normocephalic, pupils equal and reactive to light, extraocular muscles intact Neck-no lymphadenopathy or thyromegaly, trachea midline Chest-scattered bilateral rhonchi. No wheezing. No inspiratory rales. i Cardiac-tachycardic rate. Normal S1 and S2 Abdomen-hypoactive bowel sounds, no hepatosplenomegaly Extremities-no cyanosis, clubbing, or edema Neuro-minimally responsive. Cannot assess Psych-minimally responsive. Cannot assess Results & Data Vital Signs (Past 12 Hours) Vital Signs Temp Pulse Resp BP Pulse Ox 02/08/24 07:03 36.1 C L 69 22 90 02/08/24 07:00 97/72 L 02/08/24 07:00 97/72 L 02/08/24 06:45 36.0 C L 81 14 98 02/08/24 06:30 92/55 L 02/08/24 06:30 36.0 C L 67 27 H 98 02/08/24 06:01 133/60 11/15/24 06:00 36.0 C L 79 22 100 02/08/24 05:33 35.9 C L 77 24 100 02/08/24 05:32 112/53 L 02/08/24 05:32 112/53 L 02/08/24 05:32 112/53 L 02/08/24 05:15 35.9 C L 71 21 95 02/08/24 05:06 35.9 C L 84 16 99 02/08/24 05:00 96/48 L 02/08/24 04:57 35.8 C L 71 11 L 99 02/08/24 04:51 35.8 C L 60 16 95 02/08/24 04:30 113/72 02/08/24 04:21 35.8 C L 64 18 99 02/08/24 04:12 35.8 C L 77 19 92 02/08/24 04:00 114/56 L 02/08/24 03:36 35.9 C L 62 17 99 02/08/24 03:31 116/56 L 02/08/24 03:31 116/56 L 02/08/24 03:30 35.9 C L 77 18 98 02/08/24 03:03 36.0 C L 62 19 95 02/08/24 03:00 106/55 L 02/08/24 03:00 106/55 L 02/08/24 02:54 36.0 C L 69 31 H 99 02/08/24 02:45 36.0 C L 55 L 20 96 02/08/24 02:30 133/74 02/08/24 02:27 36.1 C L 53 L 24 95 02/08/24 02:12 36.1 C L 55 L 18 96 02/08/24 02:00 123/57 L 02/08/24 01:57 36.1 C L 56 L 16 100 02/08/24 01:36 36.1 C L 57 L 17 98 02/08/24 01:03 36.0 C L 68 20 100 02/08/24 01:00 122/57 L 02/08/24 01:00 122/57 L 02/08/24 00:54 36.0 C L 58 L 19 99 02/08/24 00:41 113/58 L 02/08/24 00:30 83/49 L 02/08/24 00:30 83/49 L 02/08/24 00:00 71 02/07/24 23:57 35.8 C L 72 14 97 02/07/24 23:34 96/49 L 02/07/24 23:34 96/49 L 02/07/24 23:34 96/49 L 02/07/24 23:33 35.8 C L 74 16 98 02/07/24 23:30 89/63 L 02/07/24 23:30 89/63 L 02/07/24 23:06 35.9 C L 70 23 98 02/07/24 23:00 114/55 L 02/07/24 23:00 114/55 L 02/07/24 22:54 36.0 C L 63 17 99 02/07/24 22:36 36.0 C L 65 22 100 02/07/24 22:30 100/66 02/07/24 22:30 100/66 02/07/24 22:30 100/66 02/07/24 22:24 36.1 C L 74 17 99 02/07/24 22:17 109/53 L 02/07/24 22:12 36.3 C L 79 25 H 97 02/07/24 21:30 36.8 C 64 16 97 02/07/24 21:30 113/58 L 02/07/24 21:30 113/58 L 02/07/24 21:03 37.1 C 66 18 97 02/07/24 21:00 104/57 L 02/07/24 20:42 37.3 C 69 15 96 02/07/24 20:32 95/58 L 02/07/24 20:30 37.3 C 72 21 97 02/07/24 20:18 37.4 C 66 16 95 Laboratory Results Abnormal lab results 02/07/24 02/07/24 02/07/24 Range/Units 09:06 11: 16:54 RBC (4.20-5.40) M/uL Hgb (12.0-16.0) g/dl Hct (37.0-47.0) % Chloride (98-107) mmol/L Glucose (70-99(Fasting)) mg/dl POC Glucose 170 H 201 H 186 H (70-99) mg/dl 02/07/24 02/07/24 02/07/24 Range/Units 19:56 23:37 23:39 RBC (4.20-5.40) M/uL Hgb (12.0-16.0) g/dl Hct (37.0-47.0) % Chloride (98-107) mmol/L Glucose (70-99(Fasting)) mg/dl POC Glucose 117 H 52 L* 41 L* (70-99) mg/dl 02/07/24 02/08/24 02/08/24 Range/Units 23:57 00:19 02:12 RBC (4.20-5.40) M/uL Hgb (12.0-16.0) g/dl Hct (37.0-47.0) % Chloride (98-107) mmol/L Glucose (70-99(Fasting)) mg/dl POC Glucose 66 L* 69 L* 118 H (70-99) mg/dl 02/08/24 02/08/24 02/08/24 Range/Units 04:25 04:33 07:41 RBC 3.42 L (4.20-5.40) M/uL Hgb 10.1 L (12.0-16.0) g/dl Hct 30.4 L (37.0-47.0) % Chloride 109 H (98-107) mmol/L Glucose 137 H (70-99(Fasting)) mg/dl POC Glucose 117 H 108 H (70-99) mg/dl Diagnostic Findings Cervical Spine CT 01/31/24 17:44 EXAM: CT Cervical Spine Without Intravenous Contrast INDICATION: Closed head injury. TECHNIQUE: Axial computed tomography images of the cervical spine without intravenous contrast. Sagittal and coronal reformatted images were created and reviewed. This CT exam was performed using one or more of the following dose reduction techniques: automated exposure control, adjustment of the mA and/or kV according to patient size, and/or use of iterative reconstruction technique. COMPARISON: 01/11/2024 FINDINGS: Limitations: None. Vertebrae: Ununited completely displaced type II odontoid fracture is unchanged. Posterior C1-C2 fusion hardware intact and well-seated. Stable bone grafting material about the hardware. Stable diffuse facet arthrosis. Stable multilevel spondylosis most notable at C6-C7. No acute fracture. No traumatic subluxation. Stable mild to moderate to space narrowing C4-C5 and C5-C6. Discs/spinal canal/neural foramina: No canal stenosis. There is stable right C3-C4 foraminal stenosis. Soft tissues: No significant abnormality noted. Lung apices: No significant abnormality noted. IMPRESSION: Stable ununited, displaced C2 fracture and degenerative and postoperative changes. No acute abnormality. ACT 112: Negative or not required by law. Electronically signed by Elizabeth Connell 01-31-2024 6:41 PM Chest X-Ray 01/31/24 17:44 EXAM: Portable AP chest radiograph TECHNIQUE: AP portable radiograph of the chest was obtained. INDICATION: Shortness of breath Comparison: Chest radiograph January 11, 2024 FINDINGS: LINES and TUBES: None CARDIOVASCULAR: Cardiac silhouette is stably enlarged in size. LUNGS/PLEURA: No focal consolidation identified. No significant pleural fluid. No discernible pneumothorax. OSSEOUS/OTHER: No displaced acute osseous process identified. Catheter like material and surgical clips again seen overlying the right hemiabdomen. IMPRESSION: Unchanged cardiac enlargement. No radiographic evidence of acute cardiopulmonary process detected. Electronically signed by Ismael Ren 01-31-2024 8:[address] 02/07/24 10:53 CT head/brain wo con CLINICAL HISTORY: 73 years-old Female with unresponsive. Acutely altered mental status TECHNIQUE: Multiple axial CT images of the head were obtained without contrast. A dose lowering technique was utilized adhering to the principles of ALARA. CT DOSE: 1406.31 mGy.cm COMPARISON: 01/31/2024 FINDINGS: No acute intracranial hemorrhage, midline shift, intracranial mass, hydrocephalus, territorial ischemia or abnormal extra-axial collection. Motion degraded exam. Involutional changes with chronic microvascular ischemic disease and unchanged ventriculomegaly. The calvarium is intact. Partially imaged cervical spinal fusion hardware. The paranasal sinuses, mastoid air cells, and middle ear cavities are clear. IMPRESSION: No acute intracranial abnormality identified. ACT 112: Negative or not required by law. The above report was generated using voice recognition software. It may contain grammatical, syntax or spelling errors. Electronically signed by: Saurabh Hylton M.D. 02/07/2024 12:23 PM Medications Administered Current Inpatient Medications Albuterol (Albuterol Hfa 8 Gm Inhaler) 2 puffs INH Q4H PRN PRN Reason: Shortness Of Breath Or Wheezing Stop: 03/01/24 21:32 Dextrose (Dextrose 50% 50 Ml Syringe) 25 - 50 ml IV UD PRN; Protocol PRN Reason: Hypoglycemia Protocol Stop: 03/01/24 21:32 Last Admin: 02/08/24 00:02 Dose: 25 ml Glucagon (Glucagon For Inj 1 Mg Vial) 1 mg SQ UD PRN; Protocol PRN Reason: Hypoglycemia Protocol Stop: 03/01/24 21:32 Glucose (Glucose 40% Gel 15 Gm Tube) 15 - 30 gm PO UD PRN; Protocol PRN Reason: Hypoglycemia Protocol Stop: 03/01/24 21:32 Glucose (Glucose 10 Tab/Tube) 4 - 8 tab PO UD PRN; Protocol PRN Reason: Hypoglycemia Protocol Stop: 03/01/24 21:32 Heparin Sodium (Beef Lung) (Heparin 10 Unit/Ml 5 Ml Flush) 5 ml FLUSH PRN PRN PRN Reason: Flush Stop: 03/06/24 04:11 Norepinephrine Bitartrate (Levophed/D5w) 4 mg in 250 mls @ 12.356 mls/hr IV .[id number] [facility]; Protocol Stop: 03/06/24 00:29 Last Titration: 02/08/24 07:57 Dose: 0.05 mcg/kg/min, 12.4 mls/hr Pantoprazole Sodium (Protonix) 40 mg in 10 mls @ 5 mls/min IV DAILY@1100 PETROS Stop: 03/06/24 10:59 Last Admin: 02/07/24 11:29 Dose: 5 mls/min Acetaminophen (Ofirmev) 1,000 mg in 100 mls @ 400 mls/hr IV Q8H PRN PRN Reason: Pain or Fever Stop: 02/08/24 11:35 Last Infusion: 02/06/24 21:40 Dose: Infused Vasopressin 20 units/ Sodium (Chloride) 101 mls @ 12.12 mls/hr IV .[id number] [facility] Stop: 03/06/24 13:59 Last Admin: 02/08/24 08:01 Dose: Not Given Thiamine HCl 100 mg/ Syringe 10 mls @ 2 mls/min IV QAM [facility] Stop: 02/11/24 09:04 Last Admin: 02/08/24 07:59 Dose: 2 mls/min Potassium Chloride (K Shad / Wtr) 20 meq in 100 mls @ 50 mls/hr IV Q2H [facility]; Protocol Stop: 02/08/24 10:29 Last Admin: 02/08/24 08:09 Dose: 50 mls/hr Insulin Aspart (Insulin Aspart Per Unit Charge) 0 units SC Q6 PETROS Stop: 03/09/24 11:59 Insulin Glargine (Lantus Per Unit Charge) 12 units SQ QAM PETROS Stop: 03/09/24 08:59 Magnesium Oxide (Magnesium Oxide 400 Mg Tab) 400 mg PO BID [facility] Stop: 03/04/24 20:59 Last Admin: 02/08/24 07:58 Dose: Not Given Miscellaneous (Carbohydrates For Hypoglycemia ) 15 - 30 gm PO UD PRN PRN Reason: Hypoglycemia Protocol Stop: 03/01/24 21:32 Miscellaneous (Icu Electrolyte Replacement Protocol) 1 each N/A BID@06,18 PETROS; Protocol Stop: 02/12/24 05:59 Last Admin: 02/08/24 06:20 Dose: Not Given Miscellaneous Information (Pharmacy Glycemic Mgmt Consult) 1 each N/A UD PRN; Protocol PRN Reason: Consult Stop: 03/06/24 13:51 Nystatin (Nystatin Cr 15 Gm Tube) 1 appln EXT BID [facility] Stop: 03/02/24 20:59 Last Admin: 02/08/24 07:59 Dose: 1 appln Ondansetron HCl (Ondansetron Inj 2 Mg/Ml 2 Ml Vial) 4 mg IV Q6H PRN PRN Reason: Nausea Stop: 03/01/24 21:32 Venlafaxine HCl (Venlafaxine Hcl 50 Mg Tab) 100 mg PO BID [facility] Stop: 03/05/24 20:59 Last Admin: 02/08/24 07:58 Dose: Not Given PG Care Time/CCT Total # of Minutes Spent Total Time Spent with Patient: Total time spent is greater than 50% in coordination of care (as documented) at patient's floor/unit and/or counseling patient: Coding Patient Type New History Problem Focused Exam Problem Focused Medical Decision Making Moderate Complexity Diagnoses Encephalopathy G93.40 Shock R57.9 Sepsis due to urinary tract infection A41.9; N39.0 S/P cervical spinal fusion Z98.1
[2024-02-08] MEDS ORDERED: LANTUS PER UNIT CHARGE SQ SCH ×2 (09:00→12:00)
[2024-02-08] MEDS ORDERED: VANCOMYCIN CONSULT ACTIVE PRN (10:12)
--- NOTE | 2024-02-08 10:54 | Pharmacy Report ---
Pharmacy Glycemic Short Note 2 - Date of Service February 08, 2024 - Glycemic Short BSG Results (Last 24 hours): 02/07/24 02/07/24 02/07/24 11:27 16:54 19:56 Glucose POC Glucose 201 H 186 H 117 H 02/07/24 02/07/24 02/07/24 23:37 23:39 23:57 Glucose POC Glucose 52 L* 41 L* 66 L* 02/07/24 02/08/24 02/08/24 23:58 00:19 00:20 Glucose POC Glucose 70 69 L* 80 02/08/24 02/08/24 02/08/24 02:12 04:25 04:33 Glucose 137 H POC Glucose 118 H 117 H 02/08/24 07:41 Glucose POC Glucose 108 H OUTPATIENT ANTIDIABETIC REGIMEN: * Lantus 35 units SC HS * Humalo units SC for BSG < 250 mg/dL or 18 units SC for BSG > 250 mg/dL TID * Metformin 1000 mg PO BID HbA1c: * 9.1% (01/12/24) ASSESSMENT: 02/07: * Patient did develop significant hypoglycemia yesterday evening - this was likely due to decreasing stressors combined with ongoing NPO status. * Patient patient was restarted on pressors and abx therapy resumed. * Patient's insulin needs likely to increase today. She had required insulin drip when last on pressors. * Will rely more heavily on correctional insulin today given recent low's with long acting basal. Basal doses will be scaled and given BID to provide some protection against hypoglycemia. 02/06: * BSGs well controlled over last 24 hours * Insulin drip weaned off overnight. Norepi requirements decreased over the course of the day yesterday and was weaned off overnight. Vasopressin weaned off this AM as well. * ABX discontinued this AM * Patient remains NPO at this time. * Will return to SQ basal/bolus regimen at this time 02/05: * Patient received approximately 75 units of insulin yesterday, 30 units basal + 20 units bolus + ~25 units from insulin drip. BSGs were in the mid 300's most of the day but finally started improving last evening. * Remains on high doses of vasopressors today. Plan is to continue insulin drip until vasopressor requirements have significantly decreased. Highly unlikely that drip will be discontinued today. Remains on Vancomycin and Zosyn. * Continue with 30 units of basal per day. 02/04: * 73 yo F admitted on 01/31/24 secondary to sepsis. Pharmacy was consulted on 02/03/24 for glycemic control but then consult was discontinued the following day. Pharmacy has been consulted again to assist with inpatient glycemic management today. Patient is a Type 2 diabetic as an outpatient. Please refer to outpatient regimen and most recent HbA1c above. * Fasting BSG this AM was elevated at 363 mg/dL. Received 30 units of basal total this AM plus 20 units of bolus between breakfast and lunch. Patient was transferred to ICU overnight and condition has declined. Requiring large amounts of pressors right now in the form of norepinephrine and vasopressin. This may be altering the absorption of subcutaneous insulin. BSGs are not improving, with lunchtime BSG up to 358 mg/dL. * At this time, we will start an insulin drip for hyperglycemia. 2.5 unit IVP followed by 2.5 units/hr to start. Novolog per calculator to cover carbs. Lantus will be changed to 20 units daily starting tomorrow. PLAN FOR INPATIENT GLYCEMIC CONTROL: * Hold outpatient oral diabetes medications * Basal insulin * Lantus 10 units SC x 1, then BID per the following scale: 0 unit if BSG less than 140, 5 units is 140-180, 10 units if greater than 180 * Bolus insulin * NovoLog per scale q 4 hrs * Goal Range: Low 110 mg/dL - High 140 mg/dL * Correction Factor: 20 mg/dL/unit * Nutritional / Prandial insulin per carb ratio of 1 unit per 8 grams CHO consumed
[2024-02-08 11:27] LABS: Albumin Level 2.8 gm/dl (3.4-5.0); Bilirubin Direct 0.1 mg/dl (0-0.2); Bilirubin,Total 0.4 mg/dl (0.2-1.0); Total Protein 5.2 gm/dl (6.0-8.3)
--- NOTE | 2024-02-08 11:34 | Gastrointestinal Consultation ---
Date of Consultation February 08, 2024 Assessment & Plan (1) Shock: GI asked to weigh in whether it is felt that there is a biliary source of this patient's shock. LFTs are unremarkable with exception of alk phos, though this is at its lowest value in recent history. Blood cultures thus far negative. Liver US & CT abdomen/pelvis without any acute biliary abnormalities. No evidence of biliary involvement contributing to her overall clinical picture at this time. Patient will need to reschedule her stent exchange with [facility]. Supervising Physician Co-Signing Physician Notes I saw and examined this patient with our nurse practitioner and agree with her assessment and plan. Unclear etiology of recent hemodynamic events over last 24 hours. Sepsis has been ruled out. Although patient has not been febrile. She may have had a cardiac event as per ICU team. I reviewed her prior ERCPs recent ultrasound and CAT scan and discussed her history with her mother. Apparently she had a bile duct injury during cholecystectomy which is being managed by [facility] she has required biliary stents in an attempt to help heal the bile duct injury. Liver enzymes presently a relatively normal no evidence of hepatic abscess, no right upper quadrant pain or tenderness. Pneumobilia in the bile duct supports patency of the stents that are present. Will await results of blood cultures and cardiac evaluation prior to considering any further biliary tract intervention. If no other etiology for her recent clinical deterioration surfaces then would contact the [facility] group who is more familiar with her biliary anatomy if biliary intervention is being considered. History of Present Illness Reason for Consultation: shock, ?GI related - h/o hepatic duct occlusion Attending Physician: Miguel Duckworth MD History of Present Illness Patient is a 73 yo critically ill female under the care of the ICU with cardiogenic shock. GI has been involved to determine if her shock is GI related. She reportedly had an ERCP in August 2023 at [facility] where 2 stents were removed from the CBD and 2 plastic stents were placed into the L hepatic duct. There was complete occlusion of the right hepatic duct and the plan was to have patient return in 3 months for repeat ERCP with stent exchange. Patient has not had abdominal imaging this stay, but has unremarkable LFTs and normal blood cultures. Alk phos 225, but at its lowest recent point. Echocardiogram consistent with a similar pattern to Takotsubu cardiomyopathy. Troponin ranging 900s-1000s. BP 110/52 on pressors. Patient had been hypothermic in previous days. Palliative care involved at present. Allergies Allergy/AdvReac Type Severity Reaction Status Date / Time baclofen AdvReac Intermediate Hallucinati Verified 12/21/23 14:08 ng cyclobenzaprine AdvReac Intermediate Hallucinati Verified 12/21/23 14:08 ng Home Medications Medication Instructions Recorded Confirmed Type cholecalciferol (vitamin D3) 50 2,000 units PO DAILY 11/08/18 12/21/23 History mcg (2,000 unit) capsule cyanocobalamin (vitamin B-12) 1,000 mcg PO DAILY 11/08/18 12/21/23 History 1,000 mcg tablet aspirin 81 mg tablet,delayed 81 mg PO DAILY #90 tabs 06/23/19 12/21/23 Rx release venlafaxine 150 mg 150 mg PO BID 01/18/22 12/21/23 History capsule,extended release 24 hr buspirone 15 mg tablet 30 mg PO BID 03/28/22 12/21/23 History metformin 1,000 mg tablet 1,000 mg PO BID #180 tabs 10/24/22 02/08/24 Rx rosuvastatin 20 mg tablet 20 mg PO QAM #90 tabs 10/24/22 12/21/23 Rx esomeprazole magnesium 40 mg 40 mg PO DAILY #90 caps 01/16/23 12/21/23 Rx capsule,delayed release (Nexium) bupropion HCl 150 mg tablet,12 hr 300 mg PO DAILY 02/23/23 12/21/23 History sustained-release amoxicillin 500 mg capsule 2,000 mg PO DIRECTED PRN 1 HR 03/09/23 12/21/23 History PRIOR TO DENTAL PROCEDURES pen needle, diabetic 32 gauge x #400 ea 03/15/23 12/21/23 Rx 5/32" (BD Ultra-Fine Marleny Pen Needle) blood sugar diagnostic (OneTouch #600 ea 05/10/23 12/21/23 Rx Ultra Test strips) insulin lispro 100 unit/mL See Rx Instructions subcut TID 08/02/23 02/08/24 History subcutaneous pen (Humalog KwikPen (U-100) Insulin) blood-glucose meter #1 ea 08/10/23 12/21/23 Rx albuterol sulfate 90 mcg/actuation 2 puff inhalation Q4H PRN 10/10/23 12/21/23 History aerosol inhaler Shortness Of Breath Or Wheezing insulin glargine 100 unit/mL (3 25 unit subcut QPM 10/10/23 02/08/24 History mL) subcutaneous pen (Lantus Solostar U-100 Insulin) acetaminophen 500 mg tablet 1,000 mg (2 x 500 mg) PO TID PRN 11/30/23 12/21/23 Rx pain #90 tabs gabapentin 300 mg capsule 300 mg PO TID 12/21/23 12/21/23 History Patient History Medical History Anterolisthesis of lumbar spine Elevated troponin Fall C6 cervical fracture Acute anterior epistaxis Perianal abscess Vitiligo Venous insufficiency (chronic) (peripheral) NSTEMI (non-ST elevated myocardial infarction) Mixed conductive and sensorineural hearing loss of both ears Frequent falls Cardiomyopathy Dyslipidemia Hypertension Hiatal hernia Small GERD (gastroesophageal reflux disease) Depression Surgical History Hx of cardiac cath Mar 2018. Normal coronary arteries. History of total knee replacement RT TKA APPROX 15 YEARS AGO L TKA 01/23/2018 Family History Mother Hypertension Cancer Melanoma Father Breast cancer Cancer Melanoma Family/Other Breast cancer Unknown Osteoarthritis Denies family history of Ovarian cancer Prostate cancer Heart disease Colorectal cancer Lung disease Stroke Asthma Social History Smoking Status: Never smoker Second Hand Exposure: No; Do You Dip or Chew Tobacco: No; Hx Alcohol Use: No Hx Substance Use: No Preferred Language: Hungarian Communication Ability: Effective Communication Ability Comment: D/t facial edema from fall pt cannot see well enough to sign documents now Visual Impairment: No Limitations Hearing Ability: Normal Patient Accounting Representative Required: No Beliefs That Will Affect Care: None marital status: Current Living Situation: Retirement Current Living Situation Comment: Home with mother current occupational status: disabled Feels Safe at Home: Yes Childhood Exposure to Second-Hand Smoke: No Diet: regular caffeine: Yes Dental Care, Regularly: Yes Physical Activity Frequency: 3-4 Times per Week Physical Activity Frequency Comment: walk Seatbelt Use: always Sunscreen Use: No (not in the sun) Do you think of yourself as: straight/heterosexual Assistive Devices: Walker Review of Systems Gastrointestinal: no abdominal pain Physical Exam Constitutional: + ill appearing Gastrointestinal (Abdomen): Inspection/Auscultation: abdomen normal to inspection and normal bowel sounds Percussion/Palpation: abdomen soft; abdomen nontender Psychiatric: Orientation: alert and oriented x 3 Results & Data Vital Signs (Past 12 Hours) Vital Signs Temp Pulse Resp BP Pulse Ox O2 Del Method 02/08/24 10:00 110/52 L 02/08/24 09:48 36.7 C 76 19 97 02/08/24 09:42 36.7 C 78 21 97 02/08/24 08:33 36.5 C 68 20 95 02/08/24 08:30 112/60 02/08/24 08:30 112/60 02/08/24 08:27 36.5 C 81 17 97 02/08/24 08:03 36.4 C L 78 17 96 02/08/24 08:00 Room Air 02/08/24 08:00 104/57 L 02/08/24 08:00 104/57 L 02/08/24 07:57 36.4 C L 69 25 H 96 02/08/24 07:54 36.4 C L 67 17 99 02/08/24 07:30 82/49 L 02/08/24 07:15 36.2 C L 69 10 L 92 02/08/24 07:03 36.1 C L 69 22 90 02/08/24 07:00 97/72 L 02/08/24 07:00 97/72 L 02/08/24 06:45 36.0 C L 81 14 98 02/08/24 06:30 92/55 L 02/08/24 06:30 36.0 C L 67 27 H 98 02/08/24 06:01 133/60 02/08/24 06:00 36.0 C L 79 22 100 02/08/24 05:33 35.9 C L 77 24 100 02/08/24 05:32 112/53 L 02/08/24 05:32 112/53 L 02/08/24 05:32 112/53 L 02/08/24 05:15 35.9 C L 71 21 95 02/08/24 05:06 35.9 C L 84 16 99 02/08/24 05:00 96/48 L 02/08/24 04:57 35.8 C L 71 11 L 99 02/08/24 04:51 35.8 C L 60 16 95 02/08/24 04:30 113/72 02/08/24 04:21 35.8 C L 64 18 99 02/08/24 04:12 35.8 C L 77 19 92 02/08/24 04:00 114/56 L 02/08/24 03:36 35.9 C L 62 17 99 02/08/24 03:31 116/56 L 02/08/24 03:31 116/56 L 02/08/24 03:30 35.9 C L 77 18 98 02/08/24 03:03 36.0 C L 62 19 95 02/08/24 03:00 106/55 L 02/08/24 03:00 106/55 L 02/08/24 02:54 36.0 C L 69 31 H 99 02/08/24 02:45 36.0 C L 55 L 20 96 02/08/24 02:30 133/74 02/08/24 02:27 36.1 C L 53 L 24 95 02/08/24 02:12 36.1 C L 55 L 18 96 02/08/24 02:00 123/57 L 02/08/24 01:57 36.1 C L 56 L 16 100 02/08/24 01:36 36.1 C L 57 L 17 98 02/08/24 01:03 36.0 C L 68 20 100 02/08/24 01:00 122/57 L 02/08/24 01:00 122/57 L 02/08/24 00:54 36.0 C L 58 L 19 99 02/08/24 00:41 113/58 L 02/08/24 00:30 83/49 L 02/08/24 00:30 83/49 L 02/08/24 00:00 71 02/07/24 23:57 35.8 C L 72 14 97 02/07/24 23:34 96/49 L 02/07/24 23:34 96/49 L 02/07/24 23:34 96/49 L PG Care Time/CCT Total # of Minutes Spent Total Time Spent with Patient: Total time spent is greater than 50% in coordination of care (as documented) at patient's floor/unit and/or counseling patient: Coding Level of Care Code 04116 INT INP/OBS CARE 75MIN Diagnoses Shock R57.9
[2024-02-08] MEDS: INSULIN ASPART PER UNIT CHARGE SC SCH (11:37)
[2024-02-08] MEDS: 4.5GM X1 IV STA (11:39)
[2024-02-08] MEDS: VANCOMYCIN HCL 1,250 MG in SODIUM CHLORIDE 0.9% 250 ML IV ONE (11:40)
[2024-02-08] MEDS: CASPOFUNGIN 70 MG in SODIUM CHLORIDE 0.9% 250 ML IV SCH (11:41)
--- NOTE | 2024-02-08 11:59 | Pharmacy Report ---
Pharmacy Vanc AUC Short Note - Date of Service February 08, 2024 - Assessment & Plan Assessment 73 year old F receiving VANCOMYCIN + ZOSYN + CASPOFUNGIN for treatment of septic shock of unknown source (possible GI?). Patient had been admitted to hospital 01/30 for encephalopathy, hypoglycemia, hypovolemia, UTI. She received Cefepime 01/30-02/02 before starting Keflex on 02/02, however this was converted to Rocephin on 02/04. Pt had spiked a fever 02/04 which peaked 02/05. Leukocytosis had also worsened at that time. On 02/05 patient was transferred to ICU for hypotension and concerns for septic shock. Vasopressor therapy was initiated and abx therapy broadened to Vancomycin + Zosyn. Cultures remained negative after 48 hrs on broad spectrum abx therapy as abx d/c'd on 02/06. Pt again hypotensive this AM requiring vasopressor support. GI consulted for possible biliary source of infxn. Broad spectrum abx resumed including antifungal therapy. Pertinent microbiologic data includes: 02/04 BLCXs no growth to date, BLCX fungal smear negative, Fungal BLCX pending, Repeat BLCXs drawn 02/07, UCx no growth. GI imaging pending, CT C-spine read as "no acute abnormality", procal 0.87, ESR 50, CRP 12.96, 1,3-zahe-J-glucan pending Plan Vancomycin * AUC/HERMINIO is the preferred PK/PD target for vancomycin * AUC guided dosing is effective and associated with decreased risk of nephrotoxicity compared to traditional trough targets * Loading dose 1250mg IV x 1 * Maint dose 1000mg IV Q 12 hrs is predicted to achieve target AUC/HERMINIO of 400- 600 mg/L.hr * Will check a level in the next 48 hours if therapy to continue Pharmacy will continue to follow and will adjust dose/frequency as necessary. Thank you.
[2024-02-08] MEDS ORDERED: INSULIN ASPART PER UNIT CHARGE SC SCH (12:00)
--- NOTE | 2024-02-08 12:46 | Ultrasound Report ---
ABDOMINAL ULTRASOUND, RIGHT UPPER QUADRANT HISTORY: Acute right upper quadrant abdominal pain h/o biliary tree stenting, right hepatic duct occ l. COMPARISON: CT 09/07/2023 FINDINGS: Overall Limited exam secondary to body habitus and positioning. Pancreas: The pancreas demonstrates a normal echotexture, partially obscured by bowel. Liver: 15 cm in length. Echogenic parenchyma with possible pneumobilia. No focal mass identified. Gallbladder: Cholecystectomy. CBD: 3 mm Right kidney: No hydronephrosis. IMPRESSION: 1. Limited exam as above. 2. No biliary ductal dilation identified by ultrasound. 3. Probable pneumobilia associated with the patient's common bile duct stent. 4. Cholecystectomy. ACT 112: Negative or not required by law. Electronically signed by: Saurabh Hylton M.D. 02/08/2024 12:45 PM
[2024-02-08] MEDS: OPTIRAY 320 100ml IV ONE (13:38)
[2024-02-08] MEDS: PLASMA-LYTE A 500 ML IV SCH (13:45)
--- NOTE | 2024-02-08 14:00 | Billing Data ---
Date of Service February 08, 2024 Coding Level of Care Code 46233 CRITICAL CARE
[2024-02-08] MEDS: ENOXAPARIN INJ 40 MG/0.4 ML SYR SQ SCH (14:11)
[2024-02-08] MEDS: PLASMA-LYTE A 1,000 ML IV SCH (14:21)
--- NOTE | 2024-02-08 14:26 | CT Scan Report ---
ABDOMEN AND PELVIS CT WITH IV CONTRAST CT DOSE: 1086.1 mGy.cm HISTORY: Acute right upper quadrant abdominal pain rule out biliary issues TECHNIQUE: Multiaxial CT images of the abdomen and pelvis were performed following the IV administrat ion of 94 cc of Optiray, A dose lowering technique was utilized adhering to the principles of ALARA. COMPARISON STUDY: Ultrasound of same day, CT abdomen and pelvis 09/07/2023 FINDINGS: Small pleural effusions with dependent bibasilar consolidation, likely atelectatic. Moderat e to severe coronary artery calcifications. Study is degraded by respiratory motion artifact. No pneu matosis or pneumoperitoneum identified. Unremarkable spleen and adrenal glands. Atrophic pancreas. Mild intrahepatic biliary ductal dilation with pneumobilia redemonstrated. The degree of biliary duct dilation has not significant changed. No hepatic mass lesions identified. The visualized portal vein appears patent. Surgical clips in the por ta hepatis suggest a prior cholecystectomy. There are 2 common bile duct stents in place which appear to be within satisfactory positioning. No choledocholithiasis identified on this study. Unremarkable kidneys. No hydronephrosis. Smith catheter noted within the urinary bladder lumen along with intraluminal air. Hyperdense subcentimeter focus noted within the dependent aspect of the right urinary bladder represent a stone versus blood products. Atherosclerosis of the aorta without aneurys m. A right femoral central venous catheter is in place. Small hiatal hernia with mild distal esophageal wall thickening. Nonspecific trace free pelvic fluid. Fibroid uterus. Moderate fecal retention of the rectum with mild rectal wall thickening. Normal appe ndix. No small bowel obstruction. Small fat filled umbilical hernia with diastases of 3 cm. No acute fracture. IMPRESSION: 1. Motion degraded exam. 2. Small pleural effusions with bibasilar densities favoring atelectasis. 3. No bowel obstruction or pneumoperitoneum. 4. Constipation with possible mild stercoral proctitis. 5. Cholecystectomy with common bile duct stents in place. Pneumobilia is noted which generally unchan ged biliary ductal dilation compared to the 09/07/2023 study. 6. Additional findings as above. ACT 112: Negative or not required by law. The above report was generated using voice recognition software. It may contain grammatical, syntax o r spelling errors. Electronically signed by: Saurabh Hylton M.D. 02/08/2024 2:24 PM
--- NOTE | 2024-02-08 15:25 | Hospitalist Progress Note ---
Date of Service February 08, 2024 Assessment & Plan (1) Sepsis due to urinary tract infection: Plan: Initially ruled out but recent clinical situation highly favored septic shock. She is now off vasopressor support. Blood and urine cultures are negative. Orthopedic spine consultation appreciated. Cervical spine CT scan unremarkable. No evidence of any postoperative infection or abscess. She remains on broad- spectrum antibiotic coverage (2) Hypoglycemia associated with type 2 diabetes mellitus: Plan: Present on admission. Now resolved. Sliding scale coverage as needed. Basal insulin was previously down titrated (3) Dehydration: Plan: Initially resolved with IV fluids but IV fluids were restarted due to suspected septic shock (4) S/P cervical spinal fusion: Plan: Orthopedic spine surgery consultation noted. C-spine CT scan negative for any signs of infection or abscess formation. She recently had surgery at another facility for a C1-C2 fracture (5) Hypomagnesemia: Plan: Replacement therapy. Serial lab (6) Ambulatory dysfunction: Plan: Continue OT /PT when able (7) C2 cervical fracture: Plan: Recent C1 and C2 fracture that was surgically repaired. Supportive care. (8) Encephalopathy: Plan: Now resolved. Appeared to be metabolic. Supportive care. Repeat head CT scan done on February 06 was negative for CVA or hemorrhage Plan Anticipate eventual discharge to rehab facility sometime next week Admission and Anticipated Discharge Date Admission Date: January 31, 2024 Subjective The patient is awake, alert, and conversant this morning. Dramatic improvement over the past 24 hours. Multiple entries noted. Blood cultures are negative to date. She is now off pressor support. Review of Systems 2 Review of Systems: Constitutionalno fever or chills ENTno blurred vision, no double vision, no epistaxis, no sore throat Respiratoryno cough, no wheezing, no shortness of breath Cardiacno palpitations, no chest pain, no syncope Jeffery nausea, vomiting, diarrhea, melena, hematochezia GUno urinary retention, no urinary incontinence, no dysuria, no hematuria Musculoskeletalno joint pain, no muscle tenderness Skinno bruising, no rashes, no pruritus Neurogeneralized weakness. No focal deficits Psychno depression, no anxiety Physical Exam 2 Physical Exam: General-alert and oriented x3, no fever, no chills HEENT-head atraumatic and normocephalic, pupils equal and reactive to light, extraocular muscles intact Neck-no lymphadenopathy or thyromegaly, trachea midline. Limited range of motion due to recent surgery Chest-clear to auscultation. No rales, wheezing or rhonchi Cardiac-regular rate and rhythm, normal S1 and S2 Abdomen-normal bowel sounds, no hepatosplenomegaly Extremities-no cyanosis, clubbing, or edema Neuro-cranial nerves II through XII intact, motor and sensory function within normal limits, strength symmetrical with generalized weakness, no focal deficits Psych-normal affect, normal mood Results & Data Results & Data Vital Signs (Past 12 Hours) Vital Signs Temp Pulse Resp BP Pulse Ox O2 Del Method 02/08/24 12:00 103/50 L 02/08/24 12:00 36.5 C 65 22 96 02/08/24 11:30 110/55 L 02/08/24 11:24 36.6 C 73 20 95 02/08/24 11:00 36.6 C 75 17 97 02/08/24 11:00 107/55 L 02/08/24 11:00 107/55 L 02/08/24 11:00 107/55 L 02/08/24 11:00 107/55 L 02/08/24 10:21 36.7 C 78 19 97 02/08/24 10:00 110/52 L 02/08/24 09:48 36.7 C 76 19 97 02/08/24 09:42 36.7 C 78 21 97 02/08/24 08:33 36.5 C 68 20 95 02/08/24 08:30 112/60 02/08/24 08:30 112/60 02/08/24 08:27 36.5 C 81 17 97 02/08/24 08:03 36.4 C L 78 17 96 02/08/24 08:00 Room Air 02/08/24 08:00 104/57 L 02/08/24 08:00 104/57 L 02/08/24 07:57 36.4 C L 69 25 H 96 02/08/24 07:54 36.4 C L 67 17 99 02/08/24 07:30 82/49 L 02/08/24 07:15 36.2 C L 69 10 L 92 02/08/24 07:03 36.1 C L 69 22 90 02/08/24 07:00 97/72 L 02/08/24 07:00 97/72 L 02/08/24 06:45 36.0 C L 81 14 98 02/08/24 06:30 92/55 L 02/08/24 06:30 36.0 C L 67 27 H 98 02/08/24 06:01 133/60 02/08/24 06:00 36.0 C L 79 22 100 02/08/24 05:33 35.9 C L 77 24 100 02/08/24 05:32 112/53 L 02/08/24 05:32 112/53 L 02/08/24 05:32 112/53 L 02/08/24 05:15 35.9 C L 71 21 95 02/08/24 05:06 35.9 C L 84 16 99 02/08/24 05:00 96/48 L 02/08/24 04:57 35.8 C L 71 11 L 99 02/08/24 04:51 35.8 C L 60 16 95 02/08/24 04:30 113/72 02/08/24 04:21 35.8 C L 64 18 99 02/08/24 04:12 35.8 C L 77 19 92 02/08/24 04:00 114/56 L 02/08/24 03:36 35.9 C L 62 17 99 02/08/24 03:31 116/56 L 02/08/24 03:31 116/56 L 02/08/24 03:30 35.9 C L 77 18 98 Laboratory Results 02/08/24 04:33 02/08/24 04:33 PG Care Time/CCT Total # of Minutes Spent Total Time Spent with Patient: Total time spent is greater than 50% in coordination of care (as documented) at patient's floor/unit and/or counseling patient: Coding Level of Care Code 57786 SUB INP/OBS CARE 2/35MIN Diagnoses Sepsis due to urinary tract infection A41.9; N39.0 Hypoglycemia associated with type 2 diabetes mellitus E11.649 Dehydration E86.0 S/P cervical spinal fusion Z98.1 Hypomagnesemia E83.42 Ambulatory dysfunction R26.2 C2 cervical fracture S12.100A Encounter type: subsequent encounter Fracture alignment: posteriorly displaced Fracture morphology: type II dens Fracture type: closed Encephalopathy G93.40 (7) C2 cervical fracture Encounter type: subsequent encounter Fracture alignment: posteriorly displaced Fracture morphology: type II dens Fracture type: closed
[2024-02-08] MEDS: 4.5GM EXT INFUSION IV SCH (16:42)
[2024-02-08] MEDS: LANTUS PER UNIT CHARGE SQ SCH (20:08)
[2024-02-08] MEDS: VANCOMYCIN HCL 1,000 MG in SODIUM CHLORIDE 0.9% 250 ML IV SCH (20:14)
[2024-02-08] MEDS: HYDROCORTISONE SOD 100 MG in SYRINGE 0 ML IV STA (20:40)
[2024-02-09] MEDS: HYDROCORTISONE SOD 50 MG in SYRINGE 0 ML IV SCH ×2 (00:40→13:44)
[2024-02-09 04:55] LABS: Basophils # (auto) 0.03 K/uL (0.00-0.20); Basophils % (auto) 0.6 %; Eosinophils # (auto) 0.01 K/uL (0.00-0.50); Eosinophils % (auto) 0.2 %; Hematocrit (blood only) 28.3 % (37.0-47.0); Hemoglobin 9.2 g/dl (12.0-16.0); Immature Granulocytes # (auto) 0.02 K/uL (0.01-0.20); Immature Granulocytes % (auto) 0.4 %; Lymphocytes # (auto) 0.57 K/uL (1.20-3.40); Lymphocytes % (auto) 11.3 %; Mean Corpuscular Hemoglobin 29.4 pg (25.0-34.0); Mean Corpuscular Hgb Conc 32.5 g/dL (32.0-36.0); Mean Corpuscular Volume 90.4 fL (80.0-100.0); Mean Platelet Volume 9.9 fL (9.4-12.4); Monocytes # (auto) 0.13 K/uL (0.11-0.59); Monocytes % (auto) 2.6 %; Neutrophils # (auto) 4.27 K/uL (1.40-6.50); Neutrophils % (auto) 84.9 %; Platelet Count 200 K/uL (130-400); RDW Coefficient of Variation 13.5 % (11.5-14.5); RDW Standard Deviation 43.8 fL (36.4-46.3); Red Blood Count 3.13 M/uL (4.20-5.40); White Blood Count 5.03 K/ul (4.8-10.8)
[2024-02-09 05:06] LABS: BUN Creatinine Ratio 18.8 (10-20); Calcium 8.7 mg/dl (8.6-10.3); Potassium 4.4 mmol/L (3.5-5.1)
--- NOTE | 2024-02-09 06:41 | Critical Care Progress Note ---
Date of Service February 09, 2024 Assessment & Plan (1) Shock: (2) Nonischemic cardiomyopathy: (3) Demand ischemia: (4) Encephalopathy: (5) Hypoglycemia associated with type 2 diabetes mellitus: (6) S/P cervical spinal fusion: (7) Type 2 diabetes mellitus, uncontrolled: Plan Reason Critically Ill: 73 YOF admitted for possible sepsis, hypoglycemia, hypovolemia. Rapid Response secondary to diaphoresis, tachycardia, and hypotension- initially requiring vasopressor support. Neuro - Metabolic Encephalopathy, C1/C2 fracture- s/p repair- stable - AOx2 (self and place), continues to improve. Cardiac - Shock unspecified: No longer requiring pressors, stable for downgrade Shock- Cardiogenic vs. Distributive or combination - remains slightly unclear but clinical course overall improving Cardiomyopathy -Echocardiogram possibly consistent with Takotsubo's cardiomyopathy Respiratory - - Normal ventilation and oxygenation - no acute concerns GI - - ERCP September 20, 2023: 2 stents removed from common bile duct 2 plastic biliary stents were placed into the left hepatic duct, complete occlusion of the right hepatic duct - GI consulted - US/CT suggestive of patent biliary stents, repeat hepatic panel 02/07 largely unchanged - low suspicion for biliary process as underlying etiology for presenting sx - consider revisiting based on repeat culture results - Patient has been NPO for several days, consider initiating tube feeds pending goals of care discussion with family. Palliative consult also placed. RENAL/LYTES - NO acute needs -Globally positive fluid balance - Smith in place, continue to monitor urine output ENDO - Hx DMII, - She was initially hypoglycemic on admission - goal <180mg/Dl - Random cortisol on the lower end, continue hydrocortisone x72H total HEME -anemia: AM hemoglobin stable - no obvious source of blood loss ID - Can't exclude sepsis, source unclear but WBC count normalized and patient continues to demonstrate clinical improvement. - Final cultures pending, discontinue Vancomycin, continue Zosyn x7 days, Caspo x10 days LINES/IV ACCESS - PIV, CVL, Smith Continue use of these lines DVT PROPHYLAXIS - SCDs, Lovenox DISPO: Stable for downgrade, critical care will sign off CODE STATUS: DO NOT RESUSCITATE in event of cardiac arrest Admission and Anticipated Discharge Date Admission Date: January 31, 2024 Supervising Physician Co-Signing Physician Notes Dr. Cisneros was resident physician during care of patient. I separately evaluated patient for whatley portions of the history and the exam. I was present during the critical portion of medical decision making, and I discussed the case with the resident. I generally agree with the findings and plan. Patient off vasoactives. Generally proved overall, will discontinue vancomycin as I do not feel and have not seen culture data to support an gram-positive infection. Continue with 7 days of gram-negative coverage and 10 days of antifungal coverage empirically. This may reflect recovery of a stress-induced cardiomyopathy, unclear what the exact inciting stress may be. Random cortisol was relatively low started supplemental hydrocortisone continue this for 72 hours. Awaiting further evaluation and goals of care discussion with palliative and patient's mother. Patient stable for downgrade out of the ICU Subjective Patient seen at bedside, oriented to self and place, still transiently confused but overall improved compared to yesterday. Denies shortness of breath, fevers/chills. Review of Systems Review of Systems: as per HPI Physical Exam Constitutional: + frail appearing and comfortable; no ac pechanga distress Respiratory: normal respiratory effort; no respiratory distress and no labored breathing Skin: no rashes, warm and dry Neurologic: AOx2, tangential speech with increased speech latency Results & Data Results & Data Vital Signs (Past 12 Hours) Vital Signs Temp Pulse Resp BP Pulse Ox 02/09/24 05:03 35.8 C L 61 15 100 02/09/24 05:00 105/52 L 02/09/24 05:00 105/52 L 02/09/24 04:57 35.8 C L 56 L 4 L 99 02/09/24 04:39 35.8 C L 59 L 0 L 100 02/09/24 04:03 35.7 C L 67 13 99 02/09/24 04:00 129/69 02/09/24 04:00 129/69 02/09/24 04:00 129/69 02/09/24 04:00 129/69 02/09/24 03:57 35.7 C L 57 L 8 L 95 02/09/24 03:33 60 02/09/24 03:30 35.7 C L 60 21 99 02/09/24 03:21 35.7 C L 58 L 23 97 02/09/24 03:00 98/50 L 02/09/24 03:00 98/50 L 02/09/24 02:54 35.8 C L 74 13 100 02/09/24 02:30 35.8 C L 69 15 98 02/09/24 02:03 35.8 C L 52 L 7 L 98 02/09/24 02:00 107/54 L 02/09/24 02:00 107/54 L 02/09/24 01:57 35.9 C L 46 L 4 L 96 02/09/24 01:30 35.9 C L 67 21 98 02/09/24 01:03 35.9 C L 65 24 98 02/09/24 01:00 98/59 L 02/09/24 01:00 98/59 L 02/09/24 00:21 35.9 C L 54 L 9 L 93 02/09/24 00:09 35.9 C L 54 L 7 L 95 02/09/24 00:00 106/52 L 02/09/24 00:00 106/52 L 02/08/24 23:48 36.0 C L 67 9 L 98 02/08/24 23:42 35.9 C L 67 17 99 02/08/24 23:12 35.9 C L 70 26 H 95 02/08/24 23:00 106/58 L 02/08/24 23:00 106/58 L 02/08/24 23:00 106/58 L 02/08/24 22:51 35.9 C L 64 13 100 02/08/24 22:33 36.0 C L 59 L 17 98 02/08/24 22:00 88/54 L 02/08/24 22:00 36.0 C L 64 14 99 02/08/24 21:33 36.1 C L 64 14 99 02/08/24 21:00 92/56 L 02/08/24 21:00 36.1 C L 66 16 98 02/08/24 20:33 36.1 C L 80 17 98 02/08/24 20:15 36.1 C L 62 18 97 02/08/24 19:30 36.2 C L 69 15 98 02/08/24 19:12 36.2 C L 73 15 98 02/08/24 19:00 94/56 L Resident Activity Tracking Resident Involvement: Resident Care Provided Care Provided: Adult Hospital Medicine (7) Type 2 diabetes mellitus, uncontrolled Coma presence: without coma Glycemic state: with hypoglycemia Qualified Code(s): E11.649 - Type 2 diabetes mellitus with hypoglycemia without coma
[2024-02-09 07:29] LABS: Magnesium 1.7 mg/dl (1.7-2.4)
[2024-02-09] MEDS: RAPID SEQUENCE INDUCTION BAG ONE (07:53)
[2024-02-09 09:37] LABS: Thyroid Stimulating Hormone 0.934 uIu/ml (0.300-4.500)
[2024-02-09 09:38] LABS: T4 Free Thyroxine 1.03 ng/dl (0.61-1.60)
--- NOTE | 2024-02-09 12:02 | Hospitalist Progress Note ---
Date of Service February 09, 2024 Assessment & Plan (1) Sepsis due to urinary tract infection: Plan: Initially ruled out but recent clinical situation highly favored septic shock. She is now off vasopressor support. Blood and urine cultures are negative. Orthopedic spine consultation appreciated. Cervical spine CT scan unremarkable. No evidence of any postoperative infection or abscess. Antibiotics have been tapered to only Zosyn and she remains on caspofungin for now. (2) Adrenal insufficiency: Plan: Possible cause of hypotension. She is now on intravenous hydrocortisone and off pressor support. Eventually she will be switched to oral hydrocortisone treatment. (3) Hypoglycemia associated with type 2 diabetes mellitus: Plan: Present on admission. Now resolved. Sliding scale coverage as needed. Basal insulin was previously down titrated (4) Dehydration: Plan: Initially resolved with IV fluids but IV fluids were restarted due to suspected septic shock (5) S/P cervical spinal fusion: Plan: Orthopedic spine surgery consultation noted. C-spine CT scan negative for any signs of infection or abscess formation. She recently had surgery at another facility for a C1-C2 fracture (6) Hypomagnesemia: Plan: Replacement therapy. Serial lab (7) Ambulatory dysfunction: Plan: Continue OT /PT when able (8) C2 cervical fracture: Plan: Recent C1 and C2 fracture that was surgically repaired. Supportive care. (9) Encephalopathy: Plan: Now resolved. Appeared to be metabolic. Supportive care. Repeat head CT scan done on February 06 was negative for CVA or hemorrhage Plan Probable return to [facility] this coming week. Admission and Anticipated Discharge Date Admission Date: January 31, 2024 Subjective Alert and oriented. Hemodynamically stable now. She is on steroid therapy and she may have had adrenal insufficiency causing the hypotension which has resolved once hydrocortisone has been started. Cultures remain negative. She remains on Zosyn and caspofungin for now. Review of Systems 2 Review of Systems: Constitutionalno fever or chills ENTno blurred vision, no double vision, no epistaxis, no sore throat Respiratoryno cough, no wheezing, no shortness of breath Cardiacno palpitations, no chest pain, no syncope Jeffery nausea, vomiting, diarrhea, melena, hematochezia GUno urinary retention, no urinary incontinence, no dysuria, no hematuria Musculoskeletalno joint pain, no muscle tenderness Skinno bruising, no rashes, no pruritus Neurogeneralized weakness. No focal deficits Psychno depression, no anxiety Physical Exam 2 Physical Exam: General-alert and oriented x3, no fever, no chills HEENT-head atraumatic and normocephalic, pupils equal and reactive to light, extraocular muscles intact Neck-no lymphadenopathy or thyromegaly, trachea midline. Limited range of motion due to recent surgery Chest-clear to auscultation. No rales, wheezing or rhonchi Cardiac-regular rate and rhythm, normal S1 and S2 Abdomen-normal bowel sounds, no hepatosplenomegaly Extremities-no cyanosis, clubbing, or edema Neuro-cranial nerves II through XII intact, motor and sensory function within normal limits, strength symmetrical with generalized weakness, no focal deficits Psych-normal affect, normal mood Results & Data Results & Data Vital Signs (Past 12 Hours) Vital Signs Temp Pulse Resp BP Pulse Ox O2 Del Method 02/09/24 10:06 36.3 C L 02/09/24 10:00 102/60 02/09/24 09:57 36.2 C L 76 19 100 02/09/24 09:03 36.0 C L 80 21 97 02/09/24 09:00 101/60 02/09/24 08:00 91/54 L 02/09/24 08:00 36.1 C L 82 14 99 02/09/24 08:00 76 02/09/24 07:00 106/66 02/09/24 06:54 35.8 C L 75 19 100 Room Air 02/09/24 06:33 35.9 C L 56 L 5 L 100 02/09/24 06:03 35.9 C L 71 20 89 L 02/09/24 06:02 96/54 L 02/09/24 06:02 96/54 L 02/09/24 05:57 35.9 C L 62 22 97 02/09/24 05:39 35.9 C L 60 5 L 100 02/09/24 05:03 35.8 C L 61 15 100 02/09/24 05:00 105/52 L 02/09/24 05:00 105/52 L 02/09/24 04:57 35.8 C L 56 L 4 L 99 02/09/24 04:39 35.8 C L 59 L 0 L 100 02/09/24 04:03 35.7 C L 67 13 99 02/09/24 04:00 129/69 02/09/24 04:00 129/69 02/09/24 04:00 129/69 02/09/24 04:00 129/69 02/09/24 03:57 35.7 C L 57 L 8 L 95 02/09/24 03:33 60 02/09/24 03:30 35.7 C L 60 21 99 02/09/24 03:21 35.7 C L 58 L 23 97 02/09/24 03:00 98/50 L 02/09/24 03:00 98/50 L 02/09/24 02:54 35.8 C L 74 13 100 02/09/24 02:30 35.8 C L 69 15 98 02/09/24 02:03 35.8 C L 52 L 7 L 98 02/09/24 02:00 107/54 L 02/09/24 02:00 107/54 L 02/09/24 01:57 35.9 C L 46 L 4 L 96 02/09/24 01:30 35.9 C L 67 21 98 02/09/24 01:03 35.9 C L 65 24 98 02/09/24 01:00 98/59 L 02/09/24 01:00 98/59 L 02/09/24 00:21 35.9 C L 54 L 9 L 93 02/09/24 00:09 35.9 C L 54 L 7 L 95 Laboratory Results 02/09/24 04:21 02/09/24 04:21 PG Care Time/CCT Total # of Minutes Spent Total Time Spent with Patient: Total time spent is greater than 50% in coordination of care (as documented) at patient's floor/unit and/or counseling patient: Coding Level of Care Code 79836 SUB INP/OBS CARE 2/35MIN Diagnoses Sepsis due to urinary tract infection A41.9; N39.0 Adrenal insufficiency E27.40 Hypoglycemia associated with type 2 diabetes mellitus E11.649 Dehydration E86.0 S/P cervical spinal fusion Z98.1 Hypomagnesemia E83.42 Ambulatory dysfunction R26.2 C2 cervical fracture S12.100A Encounter type: subsequent encounter Fracture alignment: posteriorly displaced Fracture morphology: type II dens Fracture type: closed Encephalopathy G93.40 (8) C2 cervical fracture Encounter type: subsequent encounter Fracture alignment: posteriorly displaced Fracture morphology: type II dens Fracture type: closed
[2024-02-09] MEDS: CASPOFUNGIN 50 MG in SODIUM CHLORIDE 0.9% 250 ML IV SCH (12:21)
[2024-02-09] MEDS: INSULIN ASPART PER UNIT CHARGE SC SCH (17:22)
[2024-02-09] MEDS ORDERED: LANTUS PER UNIT CHARGE SQ SCH (20:00)
[2024-02-09] MEDS: LANTUS PER UNIT CHARGE SQ SCH (20:19)
[2024-02-10] MEDS ORDERED: INSULIN ASPART PER UNIT CHARGE SC ONE (00:45)
[2024-02-10] MEDS ORDERED: INSULIN HUMAN REGULAR PER UNIT 10 UNITS in SYRINGE 9.9 ML IV ONE (00:45)
[2024-02-10] MEDS: INSULIN ASPART PER UNIT CHARGE SC SCH (01:05)
[2024-02-10] MEDS: INSULIN ASPART PER UNIT CHARGE SC ONE (05:00)
[2024-02-10 05:52] LABS: Basophils # (auto) 0.01 K/uL (0.00-0.20); Basophils % (auto) 0.1 %; Hematocrit (blood only) 24.2 % (37.0-47.0); Hemoglobin 8.1 g/dl (12.0-16.0); Immature Granulocytes # (auto) 0.04 K/uL (0.01-0.20); Immature Granulocytes % (auto) 0.6 %; Lymphocytes # (auto) 0.79 K/uL (1.20-3.40); Lymphocytes % (auto) 11.1 %; Mean Corpuscular Hemoglobin 29.8 pg (25.0-34.0); Mean Corpuscular Hgb Conc 33.5 g/dL (32.0-36.0); Monocytes # (auto) 0.32 K/uL (0.11-0.59); Monocytes % (auto) 4.5 %; Neutrophils # (auto) 5.96 K/uL (1.40-6.50); Neutrophils % (auto) 83.7 %; Platelet Count 203 K/uL (130-400); RDW Coefficient of Variation 13.3 % (11.5-14.5); RDW Standard Deviation 42.9 fL (36.4-46.3); Red Blood Count 2.72 M/uL (4.20-5.40); White Blood Count 7.12 K/ul (4.8-10.8)
[2024-02-10 06:24] LABS: Calcium 8.3 mg/dl (8.6-10.3); Potassium 3.9 mmol/L (3.5-5.1)
[2024-02-10 06:30] LABS: BUN Creatinine Ratio 25.3 (10-20); Creatinine Clr Calc Pharmacy 55.9 ml/min
[2024-02-10] MEDS: LANTUS PER UNIT CHARGE SC ONE (07:39)
[2024-02-10] MEDS ORDERED: LANTUS PER UNIT CHARGE SQ SCH ×2 (08:00→09:00)
--- NOTE | 2024-02-10 08:21 | Billing Data ---
Date of Service February 10, 2024 Coding Level of Care Code 02895 SUB INP/OBS CARE MIN
[2024-02-10] MEDS: LANTUS PER UNIT CHARGE SQ SCH (09:05)
[2024-02-10] MEDS: PANTOprazole 40 MG TAB PO SCH (09:36)
[2024-02-10] MEDS: HYDROCORTISONE 10 MG TAB PO SCH ×2 (09:36→20:37)
--- NOTE | 2024-02-10 14:42 | Hospitalist Progress Note ---
Date of Service February 10, 2024 Assessment & Plan (1) Sepsis due to urinary tract infection: Plan: Initially ruled out but recent clinical situation highly favored septic shock but turned out to be adrenal insufficiency. Cultures are negative. Antibiotics and antifungals discontinued. She is now off vasopressor support. Orthopedic spine consultation appreciated. Cervical spine CT scan unremarkable. No evidence of any postoperative infection or abscess. (2) Adrenal insufficiency: Plan: Suspected cause of hypotension which resolved once intravenous hydrocortisone was started. She has been switched to oral hydrocortisone 20 mg in the morning and 10 mg in the evening. (3) Hypoglycemia associated with type 2 diabetes mellitus: Plan: Present on admission. Now resolved. Sliding scale coverage as needed. Basal insulin was previously down titrated (4) Dehydration: Plan: Initially resolved with IV fluids but IV fluids were restarted due to low blood pressure. She is now doing well and off IV fluids (5) S/P cervical spinal fusion: Plan: Orthopedic spine surgery consultation noted. C-spine CT scan negative for any signs of infection or abscess formation. She recently had surgery at another facility for a C1-C2 fracture (6) Hypomagnesemia: Plan: Corrected with replacement therapy. Serial lab (7) Ambulatory dysfunction: Plan: Continue OT /PT when able (8) C2 cervical fracture: Plan: Recent C1 and C2 fracture that was surgically repaired. Supportive care. (9) Encephalopathy: Plan: Now resolved. Appeared to be metabolic. Supportive care. Repeat head CT scan done on February 06 was negative for CVA or hemorrhage Plan Probable return to [facility] where she has a bed hold. Hopefully within the next 24 to 48 hours Admission and Anticipated Discharge Date Admission Date: January 31, 2024 Subjective Alert and oriented. No distress. Intravenous hydrocortisone switch to oral dosing. Glucose 294 this morning, February 09. Lantus 20 units twice daily has been ordered. Will discontinue antibiotic and antifungal at this point. Cultures are negative. OT and PT requested. Review of Systems 2 Review of Systems: Constitutionalno fever or chills ENTno blurred vision, no double vision, no epistaxis, no sore throat Respiratoryno cough, no wheezing, no shortness of breath Cardiacno palpitations, no chest pain, no syncope Jeffery nausea, vomiting, diarrhea, melena, hematochezia GUno urinary retention, no urinary incontinence, no dysuria, no hematuria Musculoskeletalno joint pain, no muscle tenderness Skinno bruising, no rashes, no pruritus Neurogeneralized weakness. No focal deficits Psychno depression, no anxiety Physical Exam 2 Physical Exam: General-alert and oriented x3, no fever, no chills HEENT-head atraumatic and normocephalic, pupils equal and reactive to light, extraocular muscles intact Neck-no lymphadenopathy or thyromegaly, trachea midline. Limited range of motion due to recent surgery Chest-clear to auscultation. No rales, wheezing or rhonchi Cardiac-regular rate and rhythm, normal S1 and S2 Abdomen-normal bowel sounds, no hepatosplenomegaly Extremities-no cyanosis, clubbing, or edema Neuro-cranial nerves II through XII intact, motor and sensory function within normal limits, strength symmetrical with generalized weakness, no focal deficits Psych-normal affect, normal mood Results & Data Results & Data Vital Signs (Past 12 Hours) Vital Signs Temp Pulse Pulse Resp BP BP Pulse Ox 02/10/24 13:35 82 02/10/24 10:26 36.7 C 78 18 104/61 98 02/10/24 08:52 76 02/10/24 07:50 36.6 C 76 17 109/64 96 02/10/24 03:59 36.5 C 79 17 114/63 96 O2 Del Method 02/10/24 13:35 02/10/24 10:26 Room Air 02/10/24 08:52 02/10/24 07:50 Room Air 02/10/24 03:59 Room Air Laboratory Results 02/10/24 05:09 02/10/24 05:09 PG Care Time/CCT Total # of Minutes Spent Total Time Spent with Patient: Total time spent is greater than 50% in coordination of care (as documented) at patient's floor/unit and/or counseling patient: Coding Level of Care Code 95121 SUB INP/OBS CARE 3/50MIN Diagnoses Sepsis due to urinary tract infection A41.9; N39.0 Adrenal insufficiency E27.40 Hypoglycemia associated with type 2 diabetes mellitus E11.649 Dehydration E86.0 S/P cervical spinal fusion Z98.1 Hypomagnesemia E83.42 Ambulatory dysfunction R26.2 C2 cervical fracture S12.100A Encounter type: subsequent encounter Fracture alignment: posteriorly displaced Fracture morphology: type II dens Fracture type: closed Encephalopathy G93.40 (8) C2 cervical fracture Encounter type: subsequent encounter Fracture alignment: posteriorly displaced Fracture morphology: type II dens Fracture type: closed
[2024-02-11 11:54] VITALS: RESP 18
--- NOTE | 2024-02-11 13:08 | Hospitalist Progress Note ---
Date of Service February 11, 2024 Assessment & Plan (1) Sepsis due to urinary tract infection: Plan: Initially ruled out but recent clinical situation highly favored septic shock but turned out to be adrenal insufficiency. Cultures are negative. Antibiotics and antifungals discontinued. She is now off vasopressor support. Orthopedic spine consultation appreciated. Cervical spine CT scan unremarkable. No evidence of any postoperative infection or abscess. (2) Adrenal insufficiency: Plan: Suspected cause of hypotension which resolved once intravenous hydrocortisone was started. She has been switched to oral hydrocortisone 20 mg in the morning and 10 mg in the evening. (3) Hypoglycemia associated with type 2 diabetes mellitus: Plan: Present on admission. Now resolved. Sliding scale coverage as needed. Basal insulin was previously down titrated (4) Dehydration: Plan: Initially resolved with IV fluids but IV fluids were restarted due to low blood pressure. She is now doing well and off IV fluids (5) S/P cervical spinal fusion: Plan: Orthopedic spine surgery consultation noted. C-spine CT scan negative for any signs of infection or abscess formation. She recently had surgery at another facility for a C1-C2 fracture (6) Hypomagnesemia: Plan: Corrected with replacement therapy. Serial lab (7) Ambulatory dysfunction: Plan: Continue OT /PT when able (8) C2 cervical fracture: Plan: Recent C1 and C2 fracture that was surgically repaired. Supportive care. (9) Encephalopathy: Plan: Now resolved. Appeared to be metabolic. Supportive care. Repeat head CT scan done on February 06 was negative for CVA or hemorrhage Plan [facility]able return to [facility] where [facility] a bed hold. Hopefully within the next 24 hours Admission and Anticipated Discharge Date Admission Date: January 31, 2024 Subjective Patient was seen and examined at 11:10 AM. She was able to recognize me from a week ago but did not quite remember my name. She says that she is tired. This seems to be her baseline from my prior encounters with her. Review of Systems Review of Systems: All systems reviewed & are unremarkable except as noted in Subjective Physical Exam Physical Exam: General: Awake, conversant. Heart: S1, S2/regular rate and rhythm, no murmur rubs or gallops Lungs: Clear to auscultation bilaterally. Normal effort Abdomen: Soft/nontender/nondistended. No hepatosplenomegaly Extremities: No clubbing/cyanosis. No edema Behavior: Appropriate, cooperative Results & Data Results & Data Vital Signs (Past 12 Hours) Vital Signs Temp Pulse Pulse Resp BP Pulse Ox O2 Del Method 02/11/24 11:53 36.4 C L 77 18 108/61 95 Room Air 02/11/24 08:15 71 02/11/24 08:00 36.9 C 66 17 126/67 95 Room Air Laboratory Results Abnormal lab results 02/10/24 02/10/24 02/11/24 Range/Units 16:26 20:11 00:01 POC Glucose 296 H 257 H 190 H (70-99) mg/dl 02/11/24 02/11/24 02/11/24 Range/Units 04:21 07:19 11:19 POC Glucose 235 H 126 H 207 H (70-99) mg/dl PG Care Time/CCT Total # of Minutes Spent Total Time Spent with Patient: Total time spent is greater than 50% in coordination of care (as documented) at patient's floor/unit and/or counseling patient: Coding Level of Care Code 94127 SUB INP/OBS CARE 2/35MIN Diagnoses Sepsis due to urinary tract infection A41.9; N39.0 Adrenal insufficiency E27.40 Hypoglycemia associated with type 2 diabetes mellitus E11.649 Dehydration E86.0 S/P cervical spinal fusion Z98.1 Hypomagnesemia E83.42 Ambulatory dysfunction R26.2 C2 cervical fracture S12.100A Encounter type: subsequent encounter Fracture alignment: posteriorly displaced Fracture morphology: type II dens Fracture type: closed Encephalopathy G93.40 (8) C2 cervical fracture Encounter type: subsequent encounter Fracture alignment: posteriorly displaced Fracture morphology: type II dens Fracture type: closed
[2024-02-12 06:18] LABS: Hematocrit (blood only) 30.4 % (37.0-47.0); Mean Corpuscular Hemoglobin 29.3 pg (25.0-34.0); Mean Corpuscular Hgb Conc 32.9 g/dL (32.0-36.0); Mean Corpuscular Volume 89.1 fL (80.0-100.0); Mean Platelet Volume 9.4 fL (9.4-12.4); Platelet Count 252 K/uL (130-400); RDW Coefficient of Variation 14.2 % (11.5-14.5); RDW Standard Deviation 44.5 fL (36.4-46.3); Red Blood Count 3.41 M/uL (4.20-5.40)
[2024-02-12 06:54] LABS: BUN Creatinine Ratio 27.1 (10-20); Calcium 8.8 mg/dl (8.6-10.3); Creatinine Clr Calc Pharmacy 71.4 ml/min; Potassium 3.8 mmol/L (3.5-5.1)
[2024-02-12] MEDS: CARBOHYDRATES FOR HYPOGLYCEMIA PO PRN (07:04)
[2024-02-12] MEDS: LANTUS PER UNIT CHARGE SQ SCH (08:35)
[2024-02-12 12:03] VITALS: PULSE 92; TEMP 98.1; O2SAT 97
--- NOTE | 2024-02-12 12:19 | Discharge Summary ---
Date of Service February 12, 2024 Admission HPI Per Admitting Provider The patient is a 73-year-old female with a past medical history of cervical spinal fusion, hypomagnesemia, C1 and C2 cervical fracture on 10/10/2023, CKD, diabetes mellitus type 2, diabetic peripheral neuropathy, gastroparesis and asthma. The patient brought to the emergency department via ambulance, due to confusion. Patient was unable to answer due to altered mentation. Admission Exam Per Admitting Provider The patient is awake, lethargic, wearing hard collar, lying in bed and in no acute distress. HEENT--PERRL, EOMI, mucous membranes and oropharynx dry. Neck--limited exam due to hard collar. Heart--normal S1 and S2. No murmurs, rubs or gallops. Lungs--clear bilaterally, no respiratory distress, no accessory muscle use. Abdomen--normal bowel sounds and soft. Nontender. Nondistended, no hernias or masses, no organomegaly. Extremities--no cyanosis or clubbing. No edema. Dermatologic--skin is dry Neurologic--cranial nerves II through XII grossly intact. Rheumatologic--normal range of motion. Psychiatric--lethargic Principal Diagnosis Metabolic encephalopathy likely due to hypoglycemia Hypotension likely due to adrenal insufficiency. Sepsis ruled out. All antibiotics discontinued. Now being discharged on oral hydrocortisone Hypomagnesemia Ambulatory dysfunction Status post spinal fusion surgery Discharge Exam General: Awake, conversant. Heart: S1, S2/regular rate and rhythm, no murmur rubs or gallops Lungs: Clear to auscultation bilaterally. Normal effort Abdomen: Soft/nontender/nondistended. No hepatosplenomegaly Extremities: No clubbing/cyanosis. No edema Behavior: Appropriate, cooperative Discharge Data Allergies Allergy/AdvReac Type Severity Reaction Status Date / Time baclofen AdvReac Intermediate Hallucinati Verified 12/21/23 14:08 ng cyclobenzaprine AdvReac Intermediate Hallucinati Verified 12/21/23 14:08 ng Consultations 01/31/24 19:45 ED Decision to Admit Stat 02/05/24 01:51 Consult Cardiology Routine 02/05/24 09:12 Consult Sanforizer Routine 02/05/24 09:22 Consult Orthopedic Spine Surgery Routine 02/08/24 07:00 Consult Palliative Care Routine 02/08/24 10:15 Consult Gastroenterology Routine Ordered Studies 01/31/24 17:44 CT cervical spine wo con Stat CT head/brain wo con Stat 02/07/24 10:[address] [CT head/brain wo con] Urgent 02/08/24 10:03 US RUQ [US liver] Routine 02/08/24 13:00 CT abd pelvis IV con only Routine Hospital Course (1) Sepsis due to urinary tract infection: Initially ruled out but recent clinical situation highly favored septic shock but turned out to be adrenal insufficiency. Cultures are negative. Antibiotics and antifungals discontinued. She is now off vasopressor support. Orthopedic spine consultation appreciated. Cervical spine CT scan unremarkable. No evidence of any postoperative infection or abscess. Patient continues to do well without antibiotics and antifungals. (2) Adrenal insufficiency: Suspected cause of hypotension which resolved once intravenous hydrocortisone was started. She has been switched to oral hydrocortisone 20 mg in the morning and 10 mg in the evening. (3) Hypoglycemia associated with type 2 diabetes mellitus: Present on admission. Now improved. Sliding scale coverage as needed. Basal insulin was previously down titrated (4) Dehydration: Initially resolved with IV fluids but IV fluids were restarted due to low blood pressure. She is now doing well and off IV fluids (5) S/P cervical spinal fusion: Orthopedic spine surgery consultation noted. C-spine CT scan negative for any signs of infection or abscess formation. She recently had surgery at another facility for a C1-C2 fracture (6) Hypomagnesemia: Corrected with replacement therapy. Serial lab (7) Ambulatory dysfunction: Continue OT /PT when able (8) C2 cervical fracture: Recent C1 and C2 fracture that was surgically repaired. Supportive care. (9) Encephalopathy: Now resolved. Appeared to be metabolic. Supportive care. Repeat head CT scan done on February 06 was negative for CVA or hemorrhage Plan Return to Center care Total Time Total Time Spent Total Time Spent (In Minutes): 35 Discharge Plan Discharge Items Patient Disposition: Transfer Detention Fac Reason For Visit: SEPSIS DUE TO UTI, HYPOGLYCEMIA Discharge Diagnosis: Metabolic encephalopathy likely due to hypoglycemia Hypotension likely due to adrenal insufficiency. Sepsis ruled out. All antibiotics discontinued. Now being discharged on oral hydrocortisone Hypomagnesemia Ambulatory dysfunction Status post spinal fusion surgery Activity: As commented below Activity Comment: Per PT/OT recommendation Non-emergency contact: Primary Care Provider Call non-emergency contact if: you have any medication questions and your symptoms worsen Follow-up/Referrals: Yessi Gray MD [Primary Care Provider] - Diet: Carb Consistent or DM2 and Heart Healthy Addtl Attending Provider Instructions: Advised to follow-up with PCP in 1 week Pending Studies at Discharge: No Stand-Alone Forms: My [facility] Skilled Items Patient informed of condition?: Yes DNR: Yes Discharge Level of Care: Skilled Communicable Disease: No Discharge Prognosis: Stable Lines: None Urinary Catheter: No Medications and DC Order Prescriptions: New magnesium oxide 400 mg (241.3 mg magnesium) Tablet 400 mg PO BID 30 Days Qty: 60 0RF hydrocortisone [Cortef] 10 mg Tablet 20 mg PO QAM 30 Days Qty: 60 0RF hydrocortisone [Cortef] 10 mg Tablet 10 mg PO QPM 30 Days Qty: 30 0RF Continued aspirin 81 mg tablet,delayed release (DR/EC) 81 mg PO DAILY Qty: 90 3RF metformin 1,000 mg tablet 1,000 mg PO BID Qty: 180 3RF rosuvastatin 20 mg tablet 20 mg PO QAM Qty: 90 3RF (DME) pen needle, diabetic [BD Ultra-Fine Marleny Pen Needle] 32 gauge x 5/32" needle See Dose Instructions .ROUTE .MEDSUPPLY Qty: 400 3RF Dose Instruction: As directed Rx Instructions: use to inject insulin 4 x daily (DME) OneTouch Ultra Test Strip See Rx Instructions .Route Qty: 600 1RF Rx Instructions: test 6 times a day (DME) blood-glucose meter Kit See Dose Instructions .ROUTE .MEDSUPPLY Qty: 1 0RF Rx Instructions: Test 6 times a day. OneTouch Ultra acetaminophen 500 mg tablet 1,000 mg PO TID PRN (Reason: pain) Qty: 90 1RF buspirone 15 mg tablet 30 mg PO BID insulin lispro [Humalog KwikPen Insulin] 100 unit/mL insulin pen See Rx Instructions subcut TID Rx Instructions: TID with meals. Hold dose if pt eats < 25% of meal. Pre-Meal BG < 250: 12 units Pre-Meal BG >/= 250: 18 units up to TDD 50 units esomeprazole magnesium [Nexium] 40 mg capsule,delayed release(DR/EC) 40 mg PO DAILY Qty: 90 1RF bupropion HCl 150 mg tablet sustained-release 12 hr 300 mg PO DAILY cyanocobalamin (vitamin B-12) 1,000 mcg tablet 1,000 mcg PO DAILY cholecalciferol (vitamin D3) 2,000 unit capsule 2,000 units PO DAILY venlafaxine 150 mg capsule,extended release 24hr 150 mg PO BID gabapentin 300 mg capsule 300 mg PO TID amoxicillin 500 mg capsule 2,000 mg PO DIRECTED PRN (Reason: 1 HR PRIOR TO DENTAL PROCEDURES) Rx Instructions: TAKE 4 CAPSULES 1 HOUR PRIOR TO DENTAL APPOINTMENT albuterol sulfate 90 mcg/actuation Hfa Aerosol Inhaler 2 puff INHALATION Q4H PRN (Reason: Shortness Of Breath Or Wheezing) Changed insulin glargine [Lantus Solostar U-100 Insulin] 100 unit/mL (3 mL) insulin pen 16 unit subcut BID Qty: 0 0RF Discharge Orders: Discharge Order (Routine); Ordered 02/12/24 Ordered By: Abbey Griffith Admission Data Admit Date/Time: 01/31/24 20:38 Attending Provider: Abbey Griffith Admit Provider: Beau Zambrano Primary Care Provider: Yessi Gray Other Providers: [place]; Beau Zambrano; Ulises Meyer; Gabriel Triana; Salas Kirkland; Michelle Carlos; Bekah Devi; Nile Wells I Other Interventions: Discharge Summary Assessment (RN) Last Done: 02/12/24 12:29
[2024-02-12 12:31] VITALS: BP 109/64
[2024-02-12 23:45] LABS: Fungitell (1-3)-B-D-Glucan <31 pg/mL
== END 2024-02-12 15:31 | DRG 637 ==
LOC: ED 16:20 → 2S 20:38 → SUATTDRO 20:38 → 2S 21:16 → 3W 02-01 17:31 → 1E 02-05 00:16 → 2E 02-09 22:17

== ENCOUNTER 2024-03-09 09:05 | Inpatient (IN) ==
[2024-03-09] MEDS: SODIUM CHLORIDE 0.9% 1,000 ML IV ONE ×2 (09:20→09:46)
[2024-03-09] MEDS: HYDROCORTISONE SOD SUCCINATE 100 MG/2 ML VIAL IV STA (09:22)
--- NOTE | 2024-03-09 09:23 | Emergency Department Note ---
Impression & Plan Sepsis, Pneumonia, Tachycardia, Tachypnea, Acute UTI, Leukocytosis, Acute hyperglycemia ED Provider Note NAME: PAUL PERSON AGE: 73 SEX: F : 1950 ARRIVES VIA: Ambulance INFORMANT: [ems, nursing] ED PROVIDER(S): [Gold Phan MD] CHIEF COMPLAINT: Hyperglycemia, mental status change HISTORY OF PRESENT ILLNESS: The patient is a 73-year-old female who apparently has had a decline in her mental state and condition in the last 24 hours. This morning, she was confused, tachycardic and hyperglycemic. She was given some long-acting insulin. Because of her decline, because of her mental status change, she was sent to the ER. The patient can provide no history. She does have some baseline encephalopathy/confusion. As per the EMS crew, the patient does respond to pain. Her blood pressure has been adequate, they found her to be hypoxic initially and applied oxygen. She was tachycardic and noted to be diaphoretic. Her blood sugar was in the 500s. Of note, the patient is by report a full code PMHx/PSHx/Social Hx: See Below PHYSICAL EXAM: GENERAL: Patient is in moderate distress, diaphoretic, tachypneic HEENT: No acute trauma, normocephalic atraumatic, mucous membranes quite dry, no nasal congestion. NECK: No stridor, no adenopathy, no meningismus, trachea is midline. LUNGS: Clear to auscultation bilaterally, no wheeze, no rhonchi, breath sounds equal. Significantly increased respiratory rate, moderate respiratory distress HEART: Tachycardic with a 2/6 systolic murmur, regular rate and rhythm. ABDOMEN: Soft, nontender, no peritonitis. EXTREMITIES: No cyanosis, full range of motion of all the joints without pain or difficulty. NEUROLOGIC: Winces to pain. Awake, nonverbal. Seen to move all extremities. SKIN: No jaundice, moderate diaphoresis. Skin is somewhat mottled especially in the lower extremities. DIFFERENTIAL DIAGNOSIS: Sepsis or bacteremia, adrenal insufficiency, hyperglycemia, DKA, electrolyte abnormality, acidosis, pneumonia, UTI, among others. EMERGENCY DEPARTMENT PROCEDURES: MEDICAL DECISION MAKING: There is a marked leukocytosis of 20,000, this would be consistent with infection. There was a normal hemoglobin and platelet count. No coagulopathy. ABG did not show significant acidosis, CO2 retention or hypoxia. Renal panel testing showed a high sugar at over 500. There was some evidence for dehydration/acute kidney injury with a elevated creatinine. Lactic acid level was quite high at over 5, consistent with sepsis. Alk phos was elevated, the remaining liver enzymes were unremarkable. ECG showed a sinus tachycardia without acute ischemic change. Cardiac enzyme testing x 1 was slightly elevated. This troponin elevation could be secondary cardiac injury or just mismatch from her illness and tachycardia. Chest film shows a patchy right lower lung infiltrate. No heart failure. Urinalysis is consistent with infection. Respiratory bio fire was negative. The patient was aggressively managed given her presentation. I met her in the room when she arrived. The patient was placed immediately on BiPAP. This did seem to help her breathing. She received 2 L of IV saline. This amount of saline should suffice for sepsis protocol based on her actual body weight. She received IV cefepime and IV daptomycin as antibiotic coverage. She was given IV hydrocortisone for presumed adrenal insufficiency, she has had this issue previously. She was given a 1 hour DuoNeb. She was given IV Tylenol. With the above interventions, the patient has slowly started to show improvement. She seems in less distress. She is breathing easier, her heart rate has decreased, her temperature is decreasing. I did speak with the ICU attending, I spoke with the on-call hospitalist as well as case management. The patient is in need of a hospital stay. She is septic. She appears to have infection in the urine and also her lung. Patient is currently maintaining her airway and does not require intubation. I did consider intubation when she first arrived however, with the BiPAP, she has shown some improvement. Of note, prior to the patient being transferred to the ICU, the hospital service spoke with her family, she was made a DNR/DNI. Prior/Outside records/notes reviewed: Today's EMS notes describing her presentation and transport to this hospital. ECG per my interpretation: Indication was sepsis. The ECG shows a sinus tachycardia with a rate of 128. There is diffuse nonspecific ST change and baseline artifact. There is no ST elevation. There is an old anterior infarct. No PVCs. QTc is 458. Continuous Cardiac Monitoring per my interpretation: An order was placed for continuous cardiac monitoring. The monitor shows a rate of 131 with sinus tachycardia. Imaging/x-ray results per my interpretation: Chest x-ray shows some congestion of the right lower lung consistent with pneumonia. No heart failure. Chronic Medical/Social conditions affecting care: History of previous sepsis as well as dementia Care/Management discussed with: Case management, the on-call hospitalist. ICU attending-Dr. Triana. Level of care consideration(s): After review of the information above and other included data: --I believe the patient requires escalation of care to admission Critical Care Note: I have personally spent 56 minutes of critical care time in the direct management of this patient. This includes bedside care, interpretation of diagnostic studies, and testing, discussion with consultants, patient, and family members, and other required patient management activities. This 56 minutes is in excess of all separately billable procedures. DISPOSITION: Admission Past Med/Surg History Problem List (Updated 03/09/24 @ 17:24 by Gold Phan MD) Acute hyperglycemia (Acute) Leukocytosis (Acute) Acute UTI (Acute) Tachypnea (Acute) Tachycardia (Acute) Pneumonia (Acute) Sepsis (Acute) Pneumonia Adrenal insufficiency Demand ischemia Encephalopathy Nonischemic cardiomyopathy Encephalopathy Shock Hypoglycemia (Acute) Sepsis (Acute) Complicated UTI (urinary tract infection) (Acute) Hypoglycemia associated with type 2 diabetes mellitus Sepsis due to urinary tract infection S/P cervical spinal fusion (Acute) Elevated alkaline phosphatase level Hypomagnesemia Ambulatory dysfunction (Acute) Weakness (Acute) C2 cervical fracture (Acute ~10/10/23) Nondisplaced fractures through the right and left posterior arches of C1 and C2 fracture/displaced type II odontoid fracture C1 cervical fracture (Acute ~10/10/23) Nondisplaced fractures through the right and left posterior arches of C1 and C2 fracture/displaced type II odontoid fracture Bile duct injury Cholecystitis Fall (Acute) Back pain (Acute) Chronic kidney disease Eustachian tube dysfunction Mixed hearing loss, bilateral Acquired deviated nasal septum Balance disorder Sacral back pain Type 2 diabetes mellitus, uncontrolled (Chronic) Diabetic peripheral neuropathy associated with type 2 diabetes mellitus (Chronic) Anxiety Pancreatic cyst (Chronic) [facility] Chronic osteoarthritis (Chronic) Greater trochanteric bursitis Chronic thoracic back pain Lumbar facet joint pain Urinary incontinence (Chronic) Lumbar radiculopathy (Chronic) Gastroparesis (Chronic) Dysesthesia (Chronic) Vitamin D deficiency (Chronic) Medical History Anterolisthesis of lumbar spine Elevated troponin Fall C6 cervical fracture Acute anterior epistaxis Perianal abscess Vitiligo Venous insufficiency (chronic) (peripheral) NSTEMI (non-ST elevated myocardial infarction) Mixed conductive and sensorineural hearing loss of both ears Frequent falls Cardiomyopathy Dyslipidemia Hypertension Hiatal hernia Small GERD (gastroesophageal reflux disease) Depression Surgical History Hx of cardiac cath Mar 2018. Normal coronary arteries. History of total knee replacement RT TKA APPROX 15 YEARS AGO L TKA 01/23/2018 Family History Mother Hypertension Cancer Melanoma Father Breast cancer Cancer Melanoma Family/Other Breast cancer Unknown Osteoarthritis Denies family history of Ovarian cancer Prostate cancer Heart disease Colorectal cancer Lung disease Stroke Asthma Social History Smoking Status: Never smoker Second Hand Exposure: No; Do You Dip or Chew Tobacco: No; Hx Alcohol Use: No Hx Substance Use: No Preferred Language: Turkmen Communication Ability: Impaired Communication Ability Comment: D/t facial edema from fall pt cannot see well enough to sign documents now Visual Impairment: No Limitations Hearing Ability: Normal [employer] Silviculture Required: No Beliefs That Will Affect Care: None marital status: Current Living Situation: Assisted Current Living Situation Comment: [facility] current occupational status: disabled Other Information That Helps Us Care for You: No Feels Safe at Home: Yes Childhood Exposure to Second-Hand Smoke: No Diet: regular caffeine: Yes Dental Care, Regularly: Yes Physical Activity Frequency: 3-4 Times per Week Physical Activity Frequency Comment: walk Seatbelt Use: always Sunscreen Use: No (not in the sun) Do you think of yourself as: straight/heterosexual Assistive Devices: Glasses Allergies Allergies Allergy/AdvReac Type Severity Reaction Status Date / Time baclofen AdvReac Intermediate Hallucinati Verified 12/21/23 14:08 ng cyclobenzaprine AdvReac Intermediate Hallucinati Verified 12/21/23 14:08 ng Home Meds Home Medications Medication Instructions Recorded Confirmed cholecalciferol (vitamin D3) 50 2,000 units PO DAILY 11/08/18 12/21/23 mcg (2,000 unit) capsule cyanocobalamin (vitamin B-12) 1,000 mcg PO DAILY 11/08/18 12/21/23 1,000 mcg tablet venlafaxine 150 mg 150 mg PO BID 01/18/22 12/21/23 capsule,extended release 24 hr buspirone 15 mg tablet 30 mg PO BID 03/28/22 12/21/23 bupropion HCl 150 mg tablet,12 hr 300 mg PO DAILY 02/23/23 12/21/23 sustained-release amoxicillin 500 mg capsule 2,000 mg PO DIRECTED PRN 1 HR 03/09/23 12/21/23 PRIOR TO DENTAL PROCEDURES insulin lispro 100 unit/mL See Rx Instructions subcut TID 08/02/23 02/08/24 subcutaneous pen (Humalog KwikPen (U-100) Insulin) albuterol sulfate 90 mcg/actuation 2 puff inhalation Q4H PRN 10/10/23 12/21/23 aerosol inhaler Shortness Of Breath Or Wheezing gabapentin 300 mg capsule 300 mg PO TID 12/21/23 12/21/23 Previous Rx's Medication Instructions Recorded aspirin 81 mg tablet,delayed 81 mg PO DAILY #90 tabs 06/23/19 release metformin 1,000 mg tablet 1,000 mg PO BID #180 tabs 10/24/22 rosuvastatin 20 mg tablet 20 mg PO QAM #90 tabs 10/24/22 esomeprazole magnesium 40 mg 40 mg PO DAILY #90 caps 01/16/23 capsule,delayed release (Nexium) pen needle, diabetic 32 gauge x #400 ea 03/15/2332" (BD Ultra-Fine Marleny Pen Needle) blood sugar diagnostic (OneTouch #600 ea 05/10/23 Ultra Test strips) blood-glucose meter #1 ea 08/10/23 acetaminophen 500 mg tablet 1,000 mg (2 x 500 mg) PO TID PRN 11/30/23 pain #90 tabs hydrocortisone 10 mg tablet 10 mg PO QPM 1 month #30 tabs 02/12/24 (Cortef) hydrocortisone 10 mg tablet 20 mg (2 x 10 mg) PO QAM 1 month 02/12/24 (Cortef) #60 tabs insulin glargine 100 unit/mL (3 16 unit (0.16 mL) subcut BID #0 mL 02/12/24 mL) subcutaneous pen (Lantus Solostar U-100 Insulin) magnesium oxide 400 mg (241.3 mg 400 mg PO BID 1 month #60 tabs 02/12/24 magnesium) tablet Results & Data (ED) Vital Signs Vital Signs - 24 hr 03/09/24 09:08 03/09/24 09:15 03/09/24 09:23 Temperature Temperature Source Pulse Rate 132 H Pulse Rate [Right Finger] Respiratory Rate 35 H 35 H Respiratory Effort / Characteristics Spontaneous Labored Labored Respiratory Depth Respiratory Pattern Agonal Blood Pressure 144/73 H Blood Pressure [Right Arm] Blood Pressure Mean 96 Blood Pressure Mean [Right Arm] Pulse Oximetry 94 94 100 Oxygen Delivery Method Non-rebreather Non-rebreather Non-rebreather Oxygen Flow Rate 15 15 15 Fraction of Inspired Oxygen SaO2/FiO2 Ratio Sepsis Recent Fever Within 48 Hours No Sepsis New/Unexplained Change in Mental Status Yes Sepsis Action Taken by Nursing Physician Notified 03/09/24 09:27 03/09/24 09:27 03/09/24 09:37 Temperature 38.8 C H 39.7 C H Temperature Source Smith Cath ( Temp Sensing) Smith Cath ( Temp Sensing) Pulse Rate Pulse Rate [Right Finger] 128 H 128 H Respiratory Rate 26 H 32 H Respiratory Effort / Characteristics Spontaneous Labored Labored Respiratory Depth Respiratory Pattern Agonal Blood Pressure Blood Pressure [Right Arm] 108/89 157/98 H Blood Pressure Mean Blood Pressure Mean [Right Arm] 95 117 Pulse Oximetry 100 97 Oxygen Delivery Method BiPAP BiPAP Oxygen Flow Rate Fraction of Inspired Oxygen 100 100 SaO2/FiO2 Ratio 100 97 Sepsis Recent Fever Within 48 Hours Sepsis New/Unexplained Change in Mental Status Sepsis Action Taken by Nursing 03/09/24 09:40 03/09/24 09:43 03/09/24 09:50 Temperature 39.9 C H Temperature Source Smith Cath ( Temp Sensing) Pulse Rate 132 H 110 H Pulse Rate [Right Finger] Respiratory Rate 33 H Respiratory Effort / Characteristics Spontaneous Labored Respiratory Depth Normal Respiratory Pattern Regular Blood Pressure Blood Pressure [Right Arm] Blood Pressure Mean Blood Pressure Mean [Right Arm] Pulse Oximetry 98 Oxygen Delivery Method Oxygen Flow Rate Fraction of Inspired Oxygen 40 SaO2/FiO2 Ratio Sepsis Recent Fever Within 48 Hours Sepsis New/Unexplained Change in Mental Status Sepsis Action Taken by Nursing 03/09/24 09:50 03/09/24 09:59 03/09/24 10:05 Temperature 39.3 C H Temperature Source Smith Cath ( Temp Sensing) Pulse Rate Pulse Rate [Right Finger] 126 H 122 H 122 H Respiratory Rate 33 H 32 H 34 H Respiratory Effort / Characteristics Spontaneous Labored Labored Other Respiratory Depth Respiratory Pattern Blood Pressure Blood Pressure [Right Arm] 98/81 L 128/91 91/70 L Blood Pressure Mean Blood Pressure Mean [Right Arm] 86 103 77 Pulse Oximetry 95 95 94 Oxygen Delivery Method BiPAP BiPAP BiPAP Oxygen Flow Rate Fraction of Inspired Oxygen 100 100 40 SaO2/FiO2 Ratio 95 95 235 Sepsis Recent Fever Within 48 Hours Sepsis New/Unexplained Change in Mental Status Sepsis Action Taken by Assisted Medications Current Medication List: was personally reviewed by me Laboratory Data Attestation: I reviewed the patient's lab results. 03/09/24 09:10 03/09/24 12:46 Lab Results 03/09/24 03/09/24 03/09/24 Range/Units 09:10 09:15 09:20 WBC 20.59 H (4.8-10.8) K/ul RBC 4.34 (4.20-5.40) M/uL Hgb 12.5 (12.0-16.0) g/dl POC Hgb 12.9 (12.0-16.0) g/dl Hct 39.6 (37.0-47.0) % POC Hct 38 (37-47) % MCV 91.2 (80.0-100.0) fL MCH 28.8 (25.0-34.0) pg MCHC 31.6 L (32.0-36.0) g/dL RDW Std Deviation 48.1 H (36.4-46.3) fL RDW Coeff of Barrett 14.4 (11.5-14.5) % Plt Count 278 (130-400) K/uL MPV 10.3 (9.4-12.4) fL Immature Gran % (Auto) 0.3 % Neut % (Auto) 92.4 % Lymph % (Auto) 4.1 % Butler % (Auto) 2.9 % Eos % (Auto) 0.0 % Baso % (Auto) 0.3 % Neut # (Auto) 19.01 H (1.40-6.50) K/uL Lymph # (Auto) 0.85 L (1.20-3.40) K/uL Butler # (Auto) 0.59 (0.11-0.59) K/uL Eos # (Auto) 0.00 (0.00-0.50) K/uL Baso # (Auto) 0.07 (0.00-0.20) K/uL Immature Gran # (Auto) 0.07 (0.01-0.20) K/uL PT 10.8 (9.0-12.0) Seconds INR 1.0 (0.9-1.1) APTT 22 (21-31) Seconds PTT Ratio 0.8 POC Sodium 141 (135-144) mmol/L Sodium 141 (136-145) mmol/L POC Potassium 5.0 (3.3-5.0) mmol/L Potassium 4.2 (3.5-5.1) mmol/L POC Chloride 104 (101-112) mmol/L Chloride 102 (98-107) mmol/L Carbon Dioxide 23 (21-32) mmol/L POC Total CO2 24 (24-31) mmol/L Anion Gap 16 H (3-11) POC Anion Gap 19.0 (16-25) mmol/L POC BUN 53 H (7-18) mg/dl BUN 47 H (6-23) mg/dl Creatinine 1.72 H (0.6-1.2) mg/dl POC Creatinine 1.6 H (0.6-1.3) mg/dl Est Cr Clr Drug Dosing Not Reportable eGFR 31.22 BUN/Creatinine Ratio 27.3 H (10-20) Glucose 518 H* (70-99(Fasting)) mg/dl POC Glucose (other) 518 H* (70-99) mg/dl Lactate 5.2 H* (0.4-2.0) mmol/L Calcium 10.0 (8.6-10.3) mg/dl POC Ioniz Calcium Wiley 1.25 (1.12-1.32) mmol/l Magnesium 2.1 (1.7-2.4) mg/dl Total Bilirubin 0.5 (0.2-1.0) mg/dl Direct Bilirubin 0.0 (0-0.2) mg/dl AST 14 (13-39) U/L ALT 13 (7-52) U/L Alkaline Phosphatase 194 H (34-104) U/L Troponin I High Sens 28.5 H (0-14) pg/ml Total Protein 6.8 (6.0-8.3) gm/dl Albumin 3.7 (3.4-5.0) gm/dl Procalcitonin 0.90 H (0-0.5) ng/ml Urine Color Yellow Urine Appearance Turbid A (Clear) Urine pH 5.0 (4.5-7.5) Ur Specific [place] 1.033 H (1.000-1.030) Urine Protein Trace H (Negative) Urine Glucose (UA) 3+ H (Negative) Urine Ketones 2+ H (Negative) Urine Blood 1+ H (Negative) Urine Nitrite Positive A (Negative) Urine Bilirubin Negative (Negative) Urine Urobilinogen Negative (Negative) Ur Leukocyte Esterase 2+ H (Negative) Urine WBC (Auto) >50 H (0-5) /hpf Urine RBC (Auto) 0-2 (0-2) /hpf U Hyaline Cast (Auto) 6-10 H (0-2) /lpf U Epithel Cells (Auto) 0-2 (0-2) /hpf Urine Bacteria (Auto) 4+ H (None Seen) Adenovirus (PCR) (NotDetected) B. pertussis DNA (PCR) (NotDetected) B.parapertussis DNA PCR (NotDetected) C. pneumoniae DNA (PCR) (NotDetected) Coronavirus OC43 (PCR) (NotDetected) Coronavirus HKU1 (PCR) (NotDetected) Coronavirus 229E (PCR) (NotDetected) SARS-CoV-2 (PCR) (NotDetected) Coronavirus NL63 (PCR) (NotDetected) Human Metapneumovir PCR (NotDetected) Influenza Type A (PCR) (NotDetected) Influenza Type B (PCR) (NotDetected) M. pneumoniae (PCR) (NotDetected) Parainfluenza 1 (PCR) (NotDetected) Parainfluenza 2 (PCR) (NotDetected) Parainfluenza 3 (PCR) (NotDetected) Parainfluenza 4 (PCR) (NotDetected) RSV (PCR) (NotDetected) Entero/Rhino (PCR) (NotDetected) 03/09/24 Range/Units 09:57 WBC (4.8-10.8) K/ul RBC (4.20-5.40) M/uL Hgb (12.0-16.0) g/dl POC Hgb (12.0-16.0) g/dl Hct (37.0-47.0) % POC Hct (37-47) % MCV (80.0-100.0) fL MCH (25.0-34.0) pg MCHC (32.0-36.0) g/dL RDW Std Deviation (36.4-46.3) fL RDW Coeff of Barrett (11.5-14.5) % Plt Count (130-400) K/uL MPV (9.4-12.4) fL Immature Gran % (Auto) % Neut % (Auto) % Lymph % (Auto) % Butler % (Auto) % Eos % (Auto) % Baso % (Auto) % Neut # (Auto) (1.40-6.50) K/uL Lymph # (Auto) (1.20-3.40) K/uL Butler # (Auto) (0.11-0.59) K/uL Eos # (Auto) (0.00-0.50) K/uL Baso # (Auto) (0.00-0.20) K/uL Immature Gran # (Auto) (0.01-0.20) K/uL PT (9.0-12.0) Seconds INR (0.9-1.1) APTT (21-31) Seconds PTT Ratio POC Sodium (135-144) mmol/L Sodium (136-145) mmol/L POC Potassium (3.3-5.0) mmol/L Potassium (3.5-5.1) mmol/L POC Chloride (101-112) mmol/L Chloride (98-107) mmol/L Carbon Dioxide (21-32) mmol/L POC Total CO2 (24-31) mmol/L Anion Gap (3-11) POC Anion Gap (16-25) mmol/L POC BUN (7-18) mg/dl BUN (6-23) mg/dl Creatinine (0.6-1.2) mg/dl POC Creatinine (0.6-1.3) mg/dl Est Cr Clr Drug Dosing eGFR BUN/Creatinine Ratio (10-20) Glucose (70-99(Fasting)) mg/dl POC Glucose (other) (70-99) mg/dl Lactate (0.4-2.0) mmol/L Calcium (8.6-10.3) mg/dl POC Ioniz Calcium Wiley (1.12-1.32) mmol/l Magnesium (1.7-2.4) mg/dl Total Bilirubin (0.2-1.0) mg/dl Direct Bilirubin (0-0.2) mg/dl AST (13-39) U/L ALT (7-52) U/L Alkaline Phosphatase (34-104) U/L Troponin I High Sens (0-14) pg/ml Total Protein (6.0-8.3) gm/dl Albumin (3.4-5.0) gm/dl Procalcitonin (0-0.5) ng/ml Urine Color Urine Appearance (Clear) Urine pH (4.5-7.5) Ur Specific [place] (1.000-1.030) Urine Protein (Negative) Urine Glucose (UA) (Negative) Urine Ketones (Negative) Urine Blood (Negative) Urine Nitrite (Negative) Urine Bilirubin (Negative) Urine Urobilinogen (Negative) Ur Leukocyte Esterase (Negative) Urine WBC (Auto) (0-5) /hpf Urine RBC (Auto) (0-2) /hpf U Hyaline Cast (Auto) (0-2) /lpf U Epithel Cells (Auto) (0-2) /hpf Urine Bacteria (Auto) (None Seen) Adenovirus (PCR) Not Detected (NotDetected) B. pertussis DNA (PCR) Not Detected (NotDetected) B.parapertussis DNA PCR Not Detected (NotDetected) C. pneumoniae DNA (PCR) Not Detected (NotDetected) Coronavirus OC43 (PCR) Not Detected (NotDetected) Coronavirus HKU1 (PCR) Not Detected (NotDetected) Coronavirus 229E (PCR) Not Detected (NotDetected) SARS-CoV-2 (PCR) Not Detected (NotDetected) Coronavirus NL63 (PCR) Not Detected (NotDetected) Human Metapneumovir PCR Not Detected (NotDetected) Influenza Type A (PCR) Not Detected (NotDetected) Influenza Type B (PCR) Not Detected (NotDetected) M. pneumoniae (PCR) Not Detected (NotDetected) Parainfluenza 1 (PCR) Not Detected (NotDetected) Parainfluenza 2 (PCR) Not Detected (NotDetected) Parainfluenza 3 (PCR) Not Detected (NotDetected) Parainfluenza 4 (PCR) Not Detected (NotDetected) RSV (PCR) Not Detected (NotDetected) Entero/Rhino (PCR) Not Detected (NotDetected) Administered Medications Potassium Chloride 40 meq/ (Dextrose/Sodium Chloride) 1,000 ml in 1,020 mls @ 125 mls/hr IV .Q8H10M PETROS Stop: 04/08/24 14:29 Last Admin: 03/09/24 14:45 Dose: 125 mls/hr Documented By: JOSE Insulin Aspart (Insulin Aspart Per Unit Charge) 0 units SC Q4 PETROS Stop: 04/08/24 15:59 Last Admin: 03/09/24 16:05 Dose: Not Given Documented By: JOSE Co-signed By: MATHIEU Miscellaneous (Pending 1/2nss+40meq Kcl Ivf) 1 each N/A Q2H PETROS Stop: 04/08/24 15:59 Last Admin: 03/09/24 16:28 Dose: 1 each Documented By: JOSE Discontinued Medications Acetaminophen (Acetaminophen 1000 Mg/100 Ml Iv) Confirm Administered Dose 1,000 mg IV .STK-MED ONE Stop: 03/09/24 09:29 Last Admin: 03/09/24 09:29 Dose: Not Given Documented By: CAITLIN Albuterol (Albut/Ipratrop 3mg/0.5mg Neb 3 Ml Vial) 12 ml NEB ONE ONE; Protocol Stop: 03/09/24 09:30 Last Admin: 03/09/24 09:35 Dose: 12 ml Documented By: CAITLIN Hydrocortisone Sodium Succinate (Hydrocortisone Sod Succinate 100 Mg/2 Ml Vial) 100 mg IV NOW STA Stop: 03/09/24 09:14 Last Admin: 03/09/24 09:22 Dose: 100 mg Documented By: CAITLIN Sodium Chloride (Nss) 1,000 mls @ 999 mls/hr IV .Q1H1M ONE Stop: 03/09/24 10:13 Last Infusion: 03/09/24 13:08 Dose: Infused Documented By: Admin: 03/09/24 09:46 Dose: 999 mls/hr Documented By: Infusion: 03/09/24 09:46 Dose: Infused Documented By: Admin: 03/09/24 09:20 Dose: 999 mls/hr Documented By: CAITLIN Cefepime HCl (Maxipime 2000mg) 2,000 mg in 20 mls @ 5 mls/min IV NOW STA; Protocol Stop: 03/09/24 09:18 Last Admin: 03/09/24 09:46 Dose: 5 mls/min Documented By: CAITLIN Acetaminophen (Ofirmev) 1,000 mg in 100 mls @ 400 mls/hr IV NOW STA Stop: 03/09/24 09:41 Last Infusion: 03/09/24 09:46 Dose: Infused Documented By: Admin: 03/09/24 09:29 Dose: 400 mls/hr Documented By: CAITLIN Daptomycin 360 mg/ Syringe 7.2 mls @ 3.6 mls/min IV NOW STA; Protocol Stop: 03/09/24 09:39 Last Admin: 03/09/24 10:14 Dose: 3.6 mls/min Documented By: CAITLIN Sodium Chloride (Nss) 1,000 mls @ 999 mls/hr IV .Q1H1M ONE Stop: 03/09/24 10:40 Last Infusion: 03/09/24 10:42 Dose: Infused Documented By: Admin: 03/09/24 09:46 Dose: 999 mls/hr Documented By: CAITLIN Insulin Human Regular 250 (units/ Sodium Chloride) 250 mls @ 0 mls/hr IV .Q0M PETROS; Protocol Stop: 03/09/24 20:00 Last Titration: 03/09/24 15:45 Dose: Infused Documented By: JOSE Co-signed By: CB Titration: 03/09/24 14:15 Dose: 0 units/hr, 0 mls/hr Documented By: JOSE Co-signed By: RNEdison Titration: 03/09/24 13:19 Dose: 3.6 units/hr, 3.6 mls/hr Documented By: JOSE Co-signed By: WRS Admin: 03/09/24 11:16 Dose: 6 units/hr, 6 mls/hr Documented By: CAITLIN Co-signed By: Sodium Chloride (Nss) 1,000 mls @ 125 mls/hr IV .Q8H PETROS Stop: 03/10/24 10:14 Last Infusion: 03/09/24 13:08 Dose: Infused Documented By: Admin: 03/09/24 10:51 Dose: 125 mls/hr Documented By: CAITLIN Potassium Chloride 40 meq/ (Sodium Chloride) 1,020 mls @ 125 mls/hr IV .Q8H10M [facility] Stop: 04/08/24 11:44 Last Infusion: 03/09/24 15:14 Dose: Infused Documented By: Admin: 03/09/24 13:11 Dose: 125 mls/hr Documented By: JOSE Insulin Aspart (Insulin Aspart Per Unit Charge) 0 units SC ACHS [facility] Stop: 03/09/24 19:59 Last Admin: 03/09/24 13:09 Dose: Not Given Documented By: JOSE Insulin Glargine (Lantus Per Unit Charge) 10 units SQ TODAY@1600 PETROS Stop: 03/09/24 16:01 Last Admin: 03/09/24 16:27 Dose: 10 units Documented By: JOSE Co-signed By: MATHIEU Miscellaneous (Pending D5 1/2ns+40meq Kcl Ivf) 1 each N/A Q2H [facility] Stop: 04/08/24 10:14 Last Admin: 03/09/24 15:14 Dose: Not Given Documented By: Admin: 03/09/24 13:25 Dose: 1 each Documented By: Admin: 03/09/24 13:25 Dose: 1 each Documented By: JOSE Miscellaneous (Dka Goal Range 150-250 Mg/Dl) 1 each N/A ONE ONE Stop: 03/09/24 10:06 Last Admin: 03/09/24 13:09 Dose: 1 each Documented By: JOSE Imaging Data Radiologist's Impression: Chest X-Ray 03/09/24 09:13 XR chest 1V portable CLINICAL HISTORY: Shortness of breath. COMPARISON STUDY: Chest radiograph January 31, 2024. Chest CT February 20, 2021. FINDINGS: Patchy right lower lung opacities have developed since prior exam. Left lung is clear. There is no pneumothorax or pleural effusion. Pulmonary vascularity is normal. Biliary stents are partially imaged. Gaseous distention of visualized portions of the colon is incidentally noted. IMPRESSION: Interval development of patchy right basilar opacities consistent with pneumonia. ACT 112: Negative or not required by law. Electronically signed by: Noel New M.D. 03/09/2024 9:32 AM Discharge Plan Visit Data Chief Complaint: Hyperglycemia ED Provider: Gold Phan Discharge Problem: Sepsis, Pneumonia, Tachycardia, Tachypnea, Acute UTI, Leukocytosis, Acute hyperglycemia Patient Disposition: Admitted As Inpatient Condition: Serious Discharge Instructions Interventions: ED Discharge Assessment Last Done: 03/09/24 12:07 Discharge Problem: Sepsis Qualifiers: Sepsis type: sepsis due to unspecified organism Sepsis acute organ dysfunction status: without acute organ dysfunction Qualified Code(s): A41.9 - Sepsis, unspecified organism Pneumonia Qualifiers: Pneumonia type: due to unspecified organism Laterality: right Lung location: l ower lobe of lung Qualified Code(s): J18.9 - Pneumonia, unspecified organism Leukocytosis Qualifiers: Leukocytosis type: unspecified Qualified Code(s): D72.829 - Elevated white blood cell count, unspecified
[2024-03-09 09:28] LABS: iSTAT Creatinine 1.6 mg/dl (0.6-1.3); iSTAT Hemoglobin 12.9 g/dl (12.0-16.0); iSTAT Ionized Calcium 1.25 mmol/l (1.12-1.32)
[2024-03-09] MEDS: ACETAMINOPHEN 1,000 MG/100 ML VIAL IV STA (09:29)
[2024-03-09] MEDS: ACETAMINOPHEN 1000 MG/100 ML IV IV ONE (09:29)
[2024-03-09 09:34] LABS: Hematocrit (blood only) 39.6 % (37.0-47.0); Hemoglobin 12.5 g/dl (12.0-16.0); Mean Corpuscular Hemoglobin 28.8 pg (25.0-34.0); Mean Corpuscular Hgb Conc 31.6 g/dL (32.0-36.0); Mean Corpuscular Volume 91.2 fL (80.0-100.0); Mean Platelet Volume 10.3 fL (9.4-12.4); Platelet Count 278 K/uL (130-400); RDW Coefficient of Variation 14.4 % (11.5-14.5); RDW Standard Deviation 48.1 fL (36.4-46.3); Red Blood Count 4.34 M/uL (4.20-5.40); White Blood Count 20.59 K/ul (4.8-10.8)
--- NOTE | 2024-03-09 09:34 | XRay Report ---
XR chest 1V portable CLINICAL HISTORY: Shortness of breath. COMPARISON STUDY: Chest radiograph January 31, 2024. Chest CT February 20, 2021. FINDINGS: Patchy right lower lung opacities have developed since prior exam. Left lung is clear. Ther e is no pneumothorax or pleural effusion. Pulmonary vascularity is normal. Biliary stents are partial ly imaged. Gaseous distention of visualized portions of the colon is incidentally noted. IMPRESSION: Interval development of patchy right basilar opacities consistent with pneumonia. ACT 112: Negative or not required by law. Electronically signed by: Noel New M.D. 03/09/2024 9:32 AM
[2024-03-09] MEDS: ALBUT/IPRATROP 3MG/0.5MG NEB 3 ML VIAL NEB ONE (09:35)
[2024-03-09] MEDS: CEFEPIME 2000MG 2,000 MG/20 ML SYR IV STA (09:46)
[2024-03-09 09:56] LABS: Alanine Aminotransferase 13 U/L (7-52); Albumin Level 3.7 gm/dl (3.4-5.0); Alkaline Phosphatase 194 U/L (34-104); Anion Gap 16 (3-11); Aspartate Aminotransferase 14 U/L (13-39); BUN Creatinine Ratio 27.3 (10-20); Bilirubin,Total 0.5 mg/dl (0.2-1.0); Blood Urea Nitrogen 47 mg/dl (6-23); Carbon Dioxide 23 mmol/L (21-32); Chloride 102 mmol/L (98-107); Glucose 518 mg/dl (70-99(Fasting)); Magnesium 2.1 mg/dl (1.7-2.4); Potassium 4.2 mmol/L (3.5-5.1); Sodium 141 mmol/L (136-145); Total Protein 6.8 gm/dl (6.0-8.3)
[2024-03-09 09:58] LABS: Troponin I High Sensitivity 28.5 pg/ml (0-14)
[2024-03-09 09:59] LABS: Basophils # (auto) 0.07 K/uL (0.00-0.20); Basophils % (auto) 0.3 %; Immature Granulocytes # (auto) 0.07 K/uL (0.01-0.20); Immature Granulocytes % (auto) 0.3 %; Lymphocytes # (auto) 0.85 K/uL (1.20-3.40); Lymphocytes % (auto) 4.1 %; Monocytes # (auto) 0.59 K/uL (0.11-0.59); Monocytes % (auto) 2.9 %; Neutrophils # (auto) 19.01 K/uL (1.40-6.50); Neutrophils % (auto) 92.4 %
[2024-03-09 10:01] LABS: Appearance Urine Turbid (Clear); Bacteria Urine Automated 4+ (None Seen); Bilirubin Urine Negative (Negative); Blood Urine 1+ (Negative); Color Urine Yellow; Epithelial Cell Urine Auto 0-2 /hpf (0-2); Glucose Urine UA 3+ (Negative); Ketones Urine 2+ (Negative); Leukocyte Esterase Urine 2+ (Negative); Nitrite Urine Positive (Negative); Protein Urine Trace (Negative); RBC Urine Automated 0-2 /hpf (0-2); Specific Gravity Urine 1.033 (1.000-1.030); Urobilinogen Urine Negative (Negative); WBC Urine Automated >50 /hpf (0-5)
[2024-03-09 10:02] LABS: Partial Thromboplastin Ratio 0.8; Partial Thromboplastin Time 22 Seconds (21-31); Prothrombin Time 10.8 Seconds (9.0-12.0)
--- NOTE | 2024-03-09 10:02 | Critical Care Consultation ---
Date of Consultation March 09, 2024 Assessment & Plan (1) Sepsis: Reason Critically Ill: 73 YOF with concerns for sepsis, encephalopathy, shock given lactic acid acidosis Neuro - Metabolic Encephalopathy, C1/C2 fracture- s/p repair- stable CAM ICU: Cardiac - Shock previous hospital admission had combination of adrenal insufficiency, possible underlying sepsis, possible underlying takosubo abuse Respiratory - -Probable right lung infiltrates -At risk for healthcare associated pneumonia, cefepime and daptomycin; normal QTc could cover with Zithromax versus Levaquin for possible atypicals -BioFire pending -Close observation for respiratory failure given full compensation of met abolic acidosis GI -n.p.o. RENAL/LYTES - NO acute needs -Acute kidney injury -High gap metabolic acidosis with full respiratory compensation: Lactic acid acidosis - See below ID section - Smith placed for accurate BJ while on vasopressor agents ENDO - Hx DMII, -Hyperglycemia will be placed on insulin infusion -Stress dose steroids given relative adrenal insufficiency on last admission HEME - No concern at this time ID -probable sepsis versus multifactorial hypotension -Antibiotics to include daptomycin, cefepime, Levaquin -Previous admission: No specific source was ever isolated LINES/IV ACCESS - PIV, DVT PROPHYLAXIS - SCDs, Heparin 5000 units subq DISPO: ICU for impending respiratory failure in the setting of lactic acid acidosis I have personally spent 50 minutes of critical care time in the direct management of this patient. This is a life/limb threatening event. This includes time spent evaluating patient, direct bedside care, chart review, placing orders, interpretation of diagnostic studies, discussion with consultants, patient, and family members, as well as other required patient management activities. This time is exclusive of all separately billable procedures, and teaching time and separate from and in addition to any other critical care service time. (2) Adrenal insufficiency: (3) Demand ischemia: (4) Encephalopathy: (5) Nonischemic cardiomyopathy: (6) Shock: History of Present Illness Reason for Consultation: Sepsis History of Present Illness Patient 73-year-old female whose had 2 relatively recent hospital admissions. Most recent admission she was found to have relative adrenal insufficiency, no obvious source was identified for sepsis and possible takosubo cardiomyopathy. Today in the emergency department patient was found to have an obvious clinical urinary tract infection and is currently compensating her metabolic acidosis. She has been volume expanded and blood cultures and urine cultures have been obtained and appropriate antibiotics have been started. She has also been started on stress dose steroids. She is sent to the ICU on noninvasive mechanical ventilation. After extensive discussion with the mother previously she was made DNR/DNI in event of cardiac arrest. She is not requiring vasoactive medication administration at this time. Allergies Allergy/AdvReac Type Severity Reaction Status Date / Time baclofen AdvReac Intermediate Hallucinati Verified 12/21/23 14:08 ng cyclobenzaprine AdvReac Intermediate Hallucinati Verified 12/21/23 14:08 ng Home Medications Medication Instructions Recorded Confirmed Type cholecalciferol (vitamin D3) 50 2,000 units PO DAILY 11/08/18 12/21/23 History mcg (2,000 unit) capsule cyanocobalamin (vitamin B-12) 1,000 mcg PO DAILY 11/08/18 12/21/23 History 1,000 mcg tablet aspirin 81 mg tablet,delayed 81 mg PO DAILY #90 tabs 06/23/19 12/21/23 Rx release venlafaxine 150 mg 150 mg PO BID 01/18/22 12/21/23 History capsule,extended release 24 hr buspirone 15 mg tablet 30 mg PO BID 03/28/22 12/21/23 History metformin 1,000 mg tablet 1,000 mg PO BID #180 tabs 10/24/22 02/08/24 Rx rosuvastatin 20 mg tablet 20 mg PO QAM #90 tabs 10/24/22 12/21/23 Rx esomeprazole magnesium 40 mg 40 mg PO DAILY #90 caps 01/16/23 12/21/23 Rx capsule,delayed release (Nexium) bupropion HCl 150 mg tablet,12 hr 300 mg PO DAILY 02/23/23 12/21/23 History sustained-release amoxicillin 500 mg capsule 2,000 mg PO DIRECTED PRN 1 HR 03/09/23 12/21/23 History PRIOR TO DENTAL PROCEDURES pen needle, diabetic 32 gauge x #400 ea 03/15/23 12/21/23 Rx 532" (BD Ultra-Fine Marleny Pen Needle) blood sugar diagnostic (OneTouch #600 ea 05/10/23 12/21/23 Rx Ultra Test strips) insulin lispro 100 unit/mL See Rx Instructions subcut TID 08/02/23 02/08/24 History subcutaneous pen (Humalog KwikPen (U-100) Insulin) blood-glucose meter #1 ea 08/10/23 12/21/23 Rx albuterol sulfate 90 mcg/actuation 2 puff inhalation Q4H PRN 10/10/23 12/21/23 History aerosol inhaler Shortness Of Breath Or Wheezing acetaminophen 500 mg tablet 1,000 mg (2 x 500 mg) PO TID PRN 11/30/23 12/21/23 Rx pain #90 tabs gabapentin 300 mg capsule 300 mg PO TID 12/21/23 12/21/23 History hydrocortisone 10 mg tablet 10 mg PO QPM 1 month #30 tabs 02/12/24 Rx (Cortef) hydrocortisone 10 mg tablet 20 mg (2 x 10 mg) PO QAM 1 month 02/12/24 Rx (Cortef) #60 tabs insulin glargine 100 unit/mL (3 16 unit (0.16 mL) subcut BID #0 mL 02/12/24 02/08/24 Rx mL) subcutaneous pen (Lantus Solostar U-100 Insulin) magnesium oxide 400 mg (241.3 mg 400 mg PO BID 1 month #60 tabs 02/12/24 Rx magnesium) tablet Patient History Medical History Anterolisthesis of lumbar spine Elevated troponin Fall C6 cervical fracture Acute anterior epistaxis Perianal abscess Vitiligo Venous insufficiency (chronic) (peripheral) NSTEMI (non-ST elevated myocardial infarction) Mixed conductive and sensorineural hearing loss of both ears Frequent falls Cardiomyopathy Dyslipidemia Hypertension Hiatal hernia Small GERD (gastroesophageal reflux disease) Depression Surgical History Hx of cardiac cath Mar 2018. Normal coronary arteries. History of total knee replacement RT TKA APPROX 15 YEARS AGO L TKA 01/23/2018 Family History Mother Hypertension Cancer Melanoma Father Breast cancer Cancer Melanoma Family/Other Breast cancer Unknown Osteoarthritis Denies family history of Ovarian cancer Prostate cancer Heart disease Colorectal cancer Lung disease Stroke Asthma Social History Smoking Status: Unknown if ever smoked Second Hand Exposure: No; Do You Dip or Chew Tobacco: No; Hx Alcohol Use: No Hx Substance Use: No Preferred Language: Italian Communication Ability: Effective Communication Ability Comment: D/t facial edema from fall pt cannot see well enough to sign documents now Visual Impairment: No Limitations Hearing Ability: Normal Catalogue Maker Required: No Beliefs That Will Affect Care: None marital status: Current Living Situation: Alf Current Living Situation Comment: Home with mother current occupational status: disabled Feels Safe at Home: Yes Childhood Exposure to Second-Hand Smoke: No Diet: regular caffeine: Yes Dental Care, Regularly: Yes Physical Activity Frequency: 3-4 Times per Week Physical Activity Frequency Comment: walk Seatbelt Use: always Sunscreen Use: No (not in the sun) Do you think of yourself as: straight/heterosexual Assistive Devices: Walker Results & Data Results & Data Vital Signs (Past 12 Hours) Vital Signs Temp Pulse Pulse Resp BP BP Pulse Ox 03/09/24 09:50 39.9 C H 03/09/24 09:43 110 H 33 H 98 03/09/24 09:40 132 H 03/09/24 09:37 39.7 C H 128 H 32 H 157/98 H 97 03/09/24 09:27 128 H 26 H 108/89 100 03/09/24 09:27 38.8 C H 03/09/24 09:23 100 03/09/24 09:08 132 H 35 H 144/73 H 94 O2 Del Method O2 Flow Rate FiO2 03/09/24 09:50 03/09/24 09:43 40 03/09/24 09:40 03/09/24 09:37 BiPAP 100 03/09/24 09:27 BiPAP 100 03/09/24 09:27 03/09/24 09:23 Non-rebreather 15 03/09/24 09:08 Non-rebreather 15 Coding Level of Care Code 94177 CRITICAL CARE 1ST 30-74M Diagnoses Sepsis A41.9 Sepsis acute organ dysfunction status: unspecified Sepsis type: sepsis due to unspecified organism Adrenal insufficiency E27.40 Demand ischemia I24.89 Encephalopathy G93.40 Nonischemic cardiomyopathy I42.8 Shock R57.9 (1) Sepsis Sepsis acute organ dysfunction status: unspecified Sepsis type: sepsis due to unspecified organism Qualified Code(s): A41.9 - Sepsis, unspecified organism
[2024-03-09] MEDS ORDERED: PHARMACY GLYCEMIC MGMT CONSULT PRN (10:05)
[2024-03-09] MEDS ORDERED: STAT IV Infusion **Titration per Protocol STA (10:05)
[2024-03-09] MEDS: DAPTOmycin 360 MG in SYRINGE 0 ML IV STA (10:14)
[2024-03-09] MEDS ORDERED: PENDING 1/2NSS+40mEq KCL IVF SCH (10:15)
--- NOTE | 2024-03-09 10:34 | History & Physical Report ---
Date of Service March 09, 2024 Assessment & Plan (1) Sepsis: Plan: This is a 73-year-old female with past medical history of CKD, type 2 diabetes, gastroparesis, vitamin D deficiency, adrenal insufficiency who presented to the emergency department on 03/09/24 due to a decline in mental state over 24 hours. Patient currently tachycardic, hypotensive, tachypneic, and on BiPAP Admit to ICU. Chest x-ray: Interval development of patchy right basilar opacities consistent with pneumonia CBC: Leukocytosis of 20.59, hemoglobin stable PT/INR stable BMP: Creatinine elevated 1.72, glucose 518 sodium calculation due to DKA elevated at 151. (lab value 141) Lactate 5.2, repeat pending Troponin 28.5, repeat pending Procalcitonin 0.90 Urinalysis positive for UTI Blood cultures and urine cultures pending S/p cefepime and daptomycin in the ER continue daptomycin, cefepime, add Levaquin pending BC/UC results. AM CBC, BMP, magnesium, procal, CRP (2) DKA (diabetic ketoacidoses): Plan: patient placed on insulin drip in the ER BG 518 on admission last A1c 01/12/24: 9.1% on Insulin therapy and Metformin outpatient. Continue to monitor electrolytes closely AM A1c (3) Pneumonia: Plan: CXR + for right lung infiltrate Respiratory Biofire pending on BiPAP remainder of plan see #1 (4) UTI (urinary tract infection): Plan: Urinalysis + for UTI UC pending Continue Cefepime on admission remainder of plan see #1 (5) Adrenal insufficiency: Plan: Diagnosed on last hospital admission (01/31/24-02/12/24) On hydrocortisone outpatient - 20mg in AM and 10mg PM s/p 100mg IV Hydrocortisone in ED (6) LUTHER (acute kidney injury): Plan: Creatine elevated on admission at 1.72, baseline ~0.8 likely secondary to dehydration, infection, and DKA s/p 2L NSS in ER Plan Discussed code status with patient's mother via phone 03/09. Risks and benefits of resuscitation discussed in detail on the phone and Ms. Gooden informed me that Sole is a DNR/DNI. Case discussed with Dr. Swenson at time of admission. History of Present Illness Primary Care Provider: Yessi Gray MD This is a 73-year-old female with past medical history of CKD, type 2 diabetes, gastroparesis, vitamin D deficiency, adrenal insufficiency who presented to the emergency department on 03/09/24 due to a decline in mental state over 24 hours. The patient was seen and examined at bedside. She appeared in moderate distress. She was hypotensive, tachycardic, and on BiPAP at time of encounter. She was unable to provide any meaningful history. She was unable to respond to verbal stimuli but did wince to pain. Nurse was at bedside at time of encounter. Following this encounter, patient's primary contact being her mother was notified by phone of her condition. Discussed CODE STATUS with the patient's mother who would like to keep the patient a DNR as this is her status during her last hospitalization. While in the emergency department patient did undergo a chest x-ray that was consistent with pneumonia. She was given daptomycin and cefepime. She was also found to be hyperglycemic and in DKA. Patient was started on an insulin drip. She was found to have a leukocytosis of 20.59 and a lactate of 5.2. Creatinine was elevated at 1.72. Tropes elevated at 28.5. Procalcitonin elevated at 0.90. Urinalysis positive for UTI as well. Blood cultures and urine culture are both pending. Allergies Allergy/AdvReac Type Severity Reaction Status Date / Time baclofen AdvReac Intermediate Hallucinati Verified 12/21/23 14:08 ng cyclobenzaprine AdvReac Intermediate Hallucinati Verified 12/21/23 14:08 ng Home Medications Medication Instructions Recorded Confirmed Type cholecalciferol (vitamin D3) 50 2,000 units PO DAILY 11/08/18 03/10/24 History mcg (2,000 unit) capsule cyanocobalamin (vitamin B-12) 1,000 mcg PO DAILY 11/08/18 03/10/24 History 1,000 mcg tablet aspirin 81 mg tablet,delayed 81 mg PO DAILY #90 tabs 06/23/19 03/10/24 Rx release venlafaxine 150 mg 150 mg PO BID 01/18/22 03/10/24 History capsule,extended release 24 hr metformin 1,000 mg tablet 1,000 mg PO BID #180 tabs 10/24/22 03/10/24 Rx rosuvastatin 20 mg tablet 20 mg PO QAM #90 tabs 10/24/22 03/10/24 Rx bupropion HCl 150 mg tablet,12 hr 300 mg PO DAILY 02/23/23 03/10/24 History sustained-release amoxicillin 500 mg capsule 2,000 mg PO DIRECTED PRN 1 HR 03/09/23 03/10/24 History PRIOR TO DENTAL PROCEDURES pen needle, diabetic 32 gauge x #400 ea 03/15/23 12/21/23 Rx 532" (BD Ultra-Fine Marleny Pen Needle) blood sugar diagnostic (OneTouch #600 ea 05/10/23 12/21/23 Rx Ultra Test strips) insulin lispro 100 unit/mL See Rx Instructions .Route .COMPLEX 08/02/23 03/10/24 History subcutaneous pen (Humalog KwikPen (U-100) Insulin) blood-glucose meter #1 ea 08/10/23 12/21/23 Rx albuterol sulfate 90 mcg/actuation 2 puff inhalation Q4H PRN 10/10/23 03/10/24 History aerosol inhaler Shortness Of Breath Or Wheezing gabapentin 300 mg capsule 300 mg PO TID 12/21/23 03/10/24 History hydrocortisone 10 mg tablet 10 mg PO QPM 1 month #30 tabs 02/12/24 03/10/24 Rx (Cortef) magnesium oxide 400 mg (241.3 mg 400 mg PO BID 1 month #60 tabs 02/12/24 03/10/24 Rx magnesium) tablet acetaminophen 500 mg tablet 1,000 mg PO Q8H PRN pain 03/10/24 03/10/24 History bisacodyl 10 mg rectal suppository 10 mg PA DAILY PRN Constipation 03/10/24 03/10/24 History (Dulcolax (bisacodyl)) buspirone 30 mg tablet 30 mg PO BID 03/10/24 03/10/24 History hydrocortisone 20 mg tablet 20 mg PO QAM 03/10/24 03/10/24 History insulin glargine 100 unit/mL (3 10 unit subcut BID 03/10/24 03/10/24 History mL) subcutaneous pen (Lantus Solostar U-100 Insulin) magnesium hydroxide 400 mg/5 mL See Rx Instructions .Route .COMPLEX 03/10/24 03/10/24 History oral suspension (Milk of Magnesia) pantoprazole 40 mg tablet,delayed 40 mg PO DAILY 03/10/24 03/10/24 History release sodium phosphates 19 gram-7 118 ml PA DAILY PRN Constipation 03/10/24 03/10/24 History gram/118 mL enema (Fleet Enema) Past Med/Surg History Problem List (Updated 03/13/24 @ 11:20 by Gabriel Henriquez MD) Embolic stroke Counseling regarding goals of care Advance care planning Counseling regarding advanced directives and goals of care Palliative care by specialist Acute hyperglycemia (Acute) Leukocytosis (Acute) Acute UTI (Acute) Tachypnea (Acute) Tachycardia (Acute) Pneumonia (Acute) Sepsis (Acute) Pneumonia Adrenal insufficiency Demand ischemia Encephalopathy Nonischemic cardiomyopathy Encephalopathy Shock Hypoglycemia (Acute) Sepsis (Acute) Complicated UTI (urinary tract infection) (Acute) Hypoglycemia associated with type 2 diabetes mellitus Sepsis due to urinary tract infection S/P cervical spinal fusion (Acute) Elevated alkaline phosphatase level Hypomagnesemia Ambulatory dysfunction (Acute) Weakness (Acute) C2 cervical fracture (Acute ~10/10/23) Nondisplaced fractures through the right and left posterior arches of C1 and C2 fracture/displaced type II odontoid fracture C1 cervical fracture (Acute ~10/10/23) Nondisplaced fractures through the right and left posterior arches of C1 and C2 fracture/displaced type II odontoid fracture Bile duct injury Cholecystitis Fall (Acute) Back pain (Acute) Chronic kidney disease Eustachian tube dysfunction Mixed hearing loss, bilateral Acquired deviated nasal septum Balance disorder Sacral back pain Type 2 diabetes mellitus, uncontrolled (Chronic) Diabetic peripheral neuropathy associated with type 2 diabetes mellitus (Chronic) Anxiety Pancreatic cyst (Chronic) [facility] Chronic osteoarthritis (Chronic) Greater trochanteric bursitis Chronic thoracic back pain Lumbar facet joint pain Urinary incontinence (Chronic) Lumbar radiculopathy (Chronic) Gastroparesis (Chronic) Dysesthesia (Chronic) Vitamin D deficiency (Chronic) Medical History Anterolisthesis of lumbar spine Elevated troponin Fall C6 cervical fracture Acute anterior epistaxis Perianal abscess Vitiligo Venous insufficiency (chronic) (peripheral) NSTEMI (non-ST elevated myocardial infarction) Mixed conductive and sensorineural hearing loss of both ears Frequent falls Cardiomyopathy Dyslipidemia Hypertension Hiatal hernia Small GERD (gastroesophageal reflux disease) Depression Surgical History Hx of cardiac cath Mar 2018. Normal coronary arteries. History of total knee replacement RT TKA APPROX 15 YEARS AGO L TKA 01/23/2018 Family History Mother Hypertension Cancer Melanoma Father Breast cancer Cancer Melanoma Family/Other Breast cancer Unknown Osteoarthritis Denies family history of Ovarian cancer Prostate cancer Heart disease Colorectal cancer Lung disease Stroke Asthma Social History Smoking Status: Never smoker Second Hand Exposure: No; Do You Dip or Chew Tobacco: No; Hx Alcohol Use: No Hx Substance Use: No Preferred Language: Belarusian Communication Ability: Impaired Communication Ability Comment: D/t facial edema from fall pt cannot see well enough to sign documents now Visual Impairment: No Limitations Hearing Ability: Normal Iv Therapy Nurse Required: No Beliefs That Will Affect Care: None marital status: Current Living Situation: Residential Current Living Situation Comment: [facility] current occupational status: disabled Other Information That Helps Us Care for You: No Feels Safe at Home: Yes Childhood Exposure to Second-Hand Smoke: No Diet: regular caffeine: Yes Dental Care, Regularly: Yes Physical Activity Frequency: 3-4 Times per Week Physical Activity Frequency Comment: walk Seatbelt Use: always Sunscreen Use: No (not in the sun) Do you think of yourself as: straight/heterosexual Assistive Devices: Glasses Physical Exam 2 Constitutional: moderate distress, hypotensive, tachycardic. on BiPaP Eyes: did not open eyes to verbal stimuli Respiratory: clear to auscultation, breath sounds equal. moderate respiratory distress Cardiovascular: tachycardic, systolic murmur. no edema Neurologic: winces to reyes. does not open eyes to verbal stimuli. Results & Data Results & Data Vital Signs (Past 12 Hours) Vital Signs Temp Pulse Pulse Resp BP BP Pulse Ox 03/09/24 10:15 39.2 C H 122 H 24 100/78 94 03/09/24 10:05 39.3 C H 122 H 34 H 91/70 L 94 03/09/24 09:59 122 H 32 H 128/91 95 03/09/24 09:50 126 H 33 H 98/81 L 95 03/09/24 09:50 39.9 C H 03/09/24 09:43 110 H 33 H 98 03/09/24 09:40 132 H 03/09/24 09:37 39.7 C H 128 H 32 H 157/98 H 97 03/09/24 09:27 128 H 26 H 108/89 100 03/09/24 09:27 38.8 C H 03/09/24 09:23 100 03/09/24 09:15 03/09/24 09:08 132 H 35 H 144/73 H 94 O2 Del Method O2 Flow Rate FiO2 03/09/24 10:15 BiPAP 40 03/09/24 10:05 BiPAP 40 03/09/24 09:59 BiPAP 100 03/09/24 09:50 BiPAP 100 03/09/24 09:50 03/09/24 09:43 40 03/09/24 09:40 03/09/24 09:37 BiPAP 100 03/09/24 09:27 BiPAP 100 03/09/24 09:27 03/09/24 09:23 Non-rebreather 15 03/09/24 09:15 Non-rebreather 15 03/09/24 09:08 Non-rebreather 15 Laboratory Results 03/09/24 09:10 03/09/24 09:10 Critical Care Time Critical Care Time: Yes Total Critical Care Time: 35 Supervising Physician Co-Signing Physician Notes During face to face encounter, I obtained a history and physical examination, discussed plan of care with patient. I discussed discharge plan of care with ROBBIE Thomas. I reviewed above note and agree with it except for the following: Patient will be admitted to the ICU for sepsis and DKA protocol as patient is having metabolic acidosis, aniongap. PG Care Time/CCT Total # of Minutes Spent Total Time Spent with Patient: Total time spent is greater than 50% in coordination of care (as documented) at patient's floor/unit and/or counseling patient: Critical Care Time: Yes Total Critical Care Time: 35 This is a life threatening event. Coding Level of Care Code 52727 INT INP/OBS CARE 3/75MIN (25 - SIGNIFICANT, SEPARATELY IDENTIFIABLE ) Diagnoses Sepsis A41.9 Sepsis acute organ dysfunction status: unspecified Sepsis type: sepsis due to unspecified organism DKA (diabetic ketoacidoses) E13.10 Pneumonia J18.9 UTI (urinary tract infection) N39.0 Adrenal insufficiency E27.40 LUTHER (acute kidney injury) N17.9 Additional Codes Critical Care Time - Critical Care Time: Yes ([id number]) (1) Sepsis Sepsis acute organ dysfunction status: unspecified Sepsis type: sepsis due to unspecified organism Qualified Code(s): A41.9 - Sepsis, unspecified organism
[2024-03-09] MEDS: SODIUM CHLORIDE 0.9% 1,000 ML IV SCH (10:51)
[2024-03-09 11:11] LABS: Adenovirus PCR Not Detected (NotDetected); Bordetella parapertussis PCR Not Detected (NotDetected); Bordetella pertussis PCR Not Detected (NotDetected); Chlamydia pneumoniae PCR Not Detected (NotDetected); Coronavirus 229E PCR Not Detected (NotDetected); Coronavirus CoV-2 (COVID19)PCR Not Detected (NotDetected); Coronavirus HKU1 PCR Not Detected (NotDetected); Coronavirus NL63 PCR Not Detected (NotDetected); Coronavirus OC43PCR Not Detected (NotDetected); Human Metapneumovirus PCR Not Detected (NotDetected); Influenza A PCR Not Detected (NotDetected); Influenza B PCR Not Detected (NotDetected); Mycoplasma pneumoniae PCR Not Detected (NotDetected); Parainfluenza Virus 1 PCR Not Detected (NotDetected); Parainfluenza Virus 2 PCR Not Detected (NotDetected); Parainfluenza Virus 3 PCR Not Detected (NotDetected); Parainfluenza Virus 4 PCR Not Detected (NotDetected); Respiratory Syncytial VirusPCR Not Detected (NotDetected); Rhinovirus/Enterovirus PCR Not Detected (NotDetected)
[2024-03-09] MEDS: INSULIN REGULAR 250 UNITS in SODIUM CHLORIDE 0.9% 247.5 ML IV SCH ×2 (11:16→20:24)
[2024-03-09 11:23] LABS: HCO3 VBG 23 mmol/L; Oxygen Saturation VBG < 60.0 %; PCO2 VBG 49 mmHg (38-50); PO2 VBG 37 mmHg; pH VBG 7.28 (7.36-7.41)
[2024-03-09] MEDS ORDERED: ICU Protocol for HYPERglycemia SCH (11:30)
[2024-03-09] MEDS: INSULIN ASPART PER UNIT CHARGE SC SCH ×3 (13:09→21:45)
[2024-03-09] MEDS: DKA GOAL RANGE 150-250 mg/dl ONE (13:09)
--- OUTSIDE RECORDS SUMMARY | 2024-03-09 13:09 | External Medical Summary | Summary of Care ---
Author Name Unknown Organization [facility] Address [address] [place] [address] Phone [phone] Care Team Providers Care Remote Pilot Operator Name Role Phone Yessi Gray MD Primary Care Provide r Reason for Visit * Reason Onset Date Comments FYI 01/23/2024 Encounter Details Date Type Department Care Team (Late st Contact Info) Description 01/23/2024 Telephone Access Center, [facility] [address] [facility] *DO NOT REMOVE THIS DEPARTMENT* [place] [address] Services, Scheduling [address] [place] [address] Allergies Active Allergy Reactions Criticality Noted Date Comments Baclofen High 02/23/2023 Other Reaction(s): Hallucinating Cyclobenzaprine High 02/23/2023 Other Reaction(s): Hallucinating documented as of this encounter (statuses as of 02/20/2024) Medications Aspirin 81 MG Tablet Take 1 Tablet by mouth in the morning. Active MetFORMIN (GLUCOPHAGE) 1000 MG Tablet Take 1 Tablet by mouth 2 times a day with morning and evening meals. Active fluticasone (FLONASE) 50 MCG/ACT nasal spray Administer 2 Sprays into nostril in the morning. Active insulin glargine (LANTUS SOLOSTAR) 100 UNIT/ML SOPN Inject 20 Units under the skin at bedtime. 7 Active Insulin Lispro (HUMALOG KWIKPEN) 100 UNIT/ML SOPN Inject under the skin. 10 units before each meal plus sliding scale Active gabapentin (NEURONTIN) 300 MG Capsule Take 1 Capsule by mouth in the morning and 1 Capsule at noon and 1 Capsule before bedtime. 7 Active ondansetron ODT (ZOFRAN) 8 MG TBDP Take 1 Tablet by mouth every 8 hours as needed. 8 Active albuterol (PROAIR HFA) 108 (90 BASE) MCG/ACT inhaler Inhale by mouth. 7 Active Cholecalciferol (VITAMIN D3) 2000 units Capsule Take 1 Capsule by mouth in the morning. 6 Active metoprolol succinate XL (TOPROL XL) 25 MG TB24 Take 1 Tablet by mouth in the morning. Active rosuvastatin (CRESTOR) 20 MG Tablet Take 1 Tablet by mouth in the morning. Active Normal Saline Flush 0.9 % Intravenous Solution Flush IR drain with sterile 10ml saline twice daily 10 mL 3 Active oxyCODONE HCl 5 MG Oral Tablet (Oxy IR) Take 1 Tablet by mouth every 6 hours as needed for Other (severe incisional pain). 20 Tablet 3 Active Additional Information Patient not taking.Reported on 09/20/2023 Venlafaxine HCl ER 75 MG Oral Capsule Extended Release 24 Hour (Effexor XR) Take 1 Capsule by mouth in the morning and 1 Capsule before bedtime. Follow up with your primary care provider for further management.. 1 Capsule 3 Active Vitamin B-12 1000 MCG Oral Tablet (Cyanocobalamin) Take 1 Tablet by mouth in the morning. Follow up with your primary care provider for further management.. 1 Tablet 3 Active Folic Acid 1 MG Oral Tablet Take 1 Tablet by mouth in the morning. Follow up with your primary care provider for further management.. 1 Tablet 3 Active Additional Information Patient not taking.Reported on 09/17/2023 Miconazole Nitrate 2 % External Powder (Remedy) Apply topically to affected area 2 times a day. Apply to pannus 1 g 3 Active Additional Information Patient not taking.Reported on [...] mouth in the morning. 30 Capsule 6 Active Additional Information Patient not taking.Reported on 09/17/2023 Esomeprazole Magnesium 10 MG Oral Packet (NexIUM) Take 30 mg by mouth daily before breakfast. Active documented as of this encounter (statuses as of 02/20/2024) Active Problems Problem Noted Date Diagnosed Date JORGE (generalized anxiety disorder) 03/10/2023 Type 2 diabetes mellitus, wi th long-term current use of insulin 03/10/2023 Hyperlipidemia 03/10/2023 GERD (gastroesophageal reflux disease) 3 DEPRESSION RECURRENT( Moderate) 11/29/2005 Nausea with vomiting 12/08/2004 Gastroparesis 11/07/2004 Uterine leiomyoma 03/02/2003 documented as of this encounter (statuses as of 02/20/2024) Resolved Problems Problem Noted Date Diagnosed Date Resolved Date Elevated LFTs 03/11/2023 03/23/2023 Acute cholecystitis 03/10/2023 03/23/20 23 documented as of this encounter (statuses as of 02/20/2024) Social History Tobacco Use Types Packs/Day Years [...] ages 0-17 years) Not on file 03/09/2023 Comments No Sex and Gender Information Value Date Recorded Sex Assigned at Not on file Legal Sex Female 7:23 AM EST Gender Identity Not on file Sexual Orientation Not on file documented as of this encounter Functional Status * Are you deaf or do you have serious difficulty hearing? Answer Date of Assessment Author No 03/09/2023 11:37 PM Susanne Watson RN * Are you blind or do you have serious difficulty seeing, even when wearing glasses? Answer Date of Assessment Author No 03/09/2023 11:37 PM Susanne Watson RN * Do you have serious difficulty walking or climbing stairs? (5 years old or older) Answer Date of Assessment Author Yes 03/09/2023 11:37 PM Susanne Watson RN * Do you have difficulty dressing or bathing? (5 years old or older) Answer Date of Assessment Author No 03/09/2023 11:37 PM Susanne Watson RN * Because of a physical, mental, or emotional condition, do you have difficulty doing errands alone such as visiting a doctors office or shopping? (15 years old or older) Answer Date of Assessment Author No 03/09/2023 11:37 PM Susanne Watson RN documented as of this encounter Mental Status * Because of a physical, mental, or emotional condition, do you have serious difficulty concentrating, remembering, or making decisions? (5 years old or older) Answer Entry Date Author No 03/09/2023 11:37 PM Susanne Watson RN documented in this encounter Miscellaneous Notes * Telephone Encounter - Hank Lopez MD - 02/20/2024 4:57 PM EST She never did the MRCP which we needed to get a map of her biliary tree and plan for next procedure. Her LFTs are stable with normal bilirubin so no armando on removed/exchanging the stent. Can we get the MRCP done and keep her on move up list. * Telephone Encounter - Joana Morris OSA - 02/19/2024 1:35 PM EST Spoke to [facility] to reschedule ERCP from 04/01/24 to 04/29/24. Person at [facility] states their doctor had wanted this pt in as soon as possible for the stent removal. He states pt was in the hospital at [place] from 01/30 to 02/12/24 with septic shock from UTI. I asked if pt was having any pain etc, he was unsure. I called for records from [place], which will be faxed to our office. FYI * Telephone Encounter - Nita Kirkland OSA - 01/23/2024 11:44 AM EDT Ercp 04/01 * Telephone Encounter - Belinda Pratt OSA - 01/23/2024 8:31 AM EDT Aruna called on patients behalf, Sole is now in the care of [facility], address and number updated on file. Patient had procedure on 09/20/[address] Loepz, with recommendation :Repeat ERCP in 3 months to exchange stent . Facility will be giving a call back once transportation can be arranged for patient care. Thank you documented in this encounter Plan of Treatment Upcoming Encounters Date Type Department Care Team (Latest Contact Info) Description 04/29/2024 9:27 AM EST Hospital Encounter OR [facility], Operating Room, [facility] - 4th Floor [address] [place] [address] Hank Lopez MD [address] [place] [id number] 04/29/2024 9:27 AM EST - 04/29/2024 10:06 AM EST Surgery OR [facility], Operating Room, [facility] - 4th Floor [address] [place] [place] [address] Hank Lopez MD [address] [place] [address] ENDOSCOPIC RETROGRADE CHOLANGIOPANCREATOGRAPHY (ERCP) W/STENT REMOVAL AND EXCHANGE; INC DILATION, GUIDE WIRE AND SPHINCTEROTOMY Scheduled Procedures Name Priority Associated Diagnoses Date/Ti me ENDOSCOPIC RETROGRADE CHOLANGIOPANCREATOGRAPHY (ERCP) W/STENT REMOVAL AND EXCHANGE; INC DILATION, GUIDE WIRE AND SPHINCTEROTOMY Encounter for removal of biliary stent 04/29/2024 9:27 AM EST Health Maintenance Due Date Last Done [...] HbA1c 05/13/2024 11/11/2023, 03/10/2023 GFR 01/06/2025 01/07/2024, 1009/2023, 11/17/2023, Additional history exists Pneumococcal Vaccine: 65+ [...] this encounter Medical Devices Implanted Type Area Buckshot Swage Operator Device Identifier Shelf Expiration Date Model / Serial / Lot Balloon Rx Hurcan 6-4x5.8 4592 - [id number] Implanted:Qty: 1 on 03/14/2023 by Juan Nguyen DO at ENDOSCOPY [facility] [employer] : ENDOSCOPY [id number] 01/11/2025 [id number] / / [id number] Cath Drainage 12fr [id number] - [id number] Implanted:Qty: 1 on 03/21/2023 at [facility] [employer] : INTRV RAD 12/26/2025 G11 [id number] / / [id number] Catheter 0.035in [id number] Balln Dilatation Rapid - [id number] Implanted:Qty: 1 on 04/26/2023 by Mark Morton MD at ENDOSCOPY [facility] [employer] : ENDOSCOPY [id number] 10/22/2024 [id number] / / [id number] Stent Advanix Bili Db 7fr 12cm - [id number] Implanted:Qty: 1 on 09/20/2023 by Hank Lopez MD at OR [facility] [employer] : ENDOSCOPY [id number] 02/27/2025 [id number] / / [id number] Stent Advanix Bili Db 7fr 12cm - [id number] Implanted:Qty: 1 on 09/20/2023 by Hank Lopez MD at OR [facility] [employer] : ENDOSCOPY [id number] 10/08/2024 [id number] / / [id number] documented as of this encounter Advance Directives * Full Code (Latest Code Status on File) Date Activated Date Inactivated Comments 03/09/2023 11:44 PM 03/23/2023 6:37 PM This orde r reflects the patients wishes and were consensually agreed upon. Question Answer Comments Discussion of Advance Directives occurred with: Patient Care Teams Remote Pilot Operator Relationship Specialty Start Date End Date Yessi Gray MD [address] [place] [facility] [place] [address] PCP - General Internal Medicine 03/09/23 documented as of this encounter
--- OUTSIDE RECORDS SUMMARY | 2024-03-09 13:09 | External Medical Summary | Summary of Care ---
Author Name Unknown Organization [facility] Address [address] [place] [address] Phone [phone] Care Team Providers Care Lever Tender Name Role Phone Yessi Gray MD Primary Care Provide r Reason for Visit * Reason Onset Date Comments Appointment Canceled 12/28/2023 Encounter Details Date Type Department Care Team (Late st Contact Info) Description 12/28/2023 Telephone Gastroenterology, [address] [address] Hank Lopez MD [address] [place] [address] Appointment Canceled Allergies Active Allergy Reactions Criticality Noted Date Comments Baclofen High 02/23/2023 Other Reaction(s): Hallucinating Cyclobenzaprine High 02/23/2023 Other Reaction(s): Hallucinating documented as of this encounter (statuses as of 02/07/2024) Medications Aspirin 81 MG Tablet Take 1 [...] as of this encounter (statuses as of 02/07/2024) Active Problems Problem Noted Date Diagnosed Date JORGE (generalized anxiety disorder) 03/10/2023 Type 2 diabetes mellitus, wi th long-term current use of insulin 03/10/2023 Hyperlipidemia 03/10/2023 GERD (gastroesophageal reflux disease) DEPRESSION RECURRENT( Moderate) 11/29/2005 Nausea with vomiting 12/08/2004 Gastroparesis 11/07/2004 Uterine leiomyoma 03/02/2003 documented as of this encounter (statuses as of 02/07/2024) Resolved Problems Problem Noted Date Diagnosed Date Resolved Date Elevated LFTs 03/11/2023 03/23/2023 Acute cholecystitis 03/10/2023 03/23/20 23 documented as of this encounter (statuses as of 02/07/2024) Social History Tobacco Use Types Packs/Day Years [...] encounter Miscellaneous Notes * Telephone Encounter - Nilda Ingram OSA - 02/07/2024 3:36 PM EST ERCP scheduled for 04/01/24 * Telephone Encounter - Nita Kirkland OSA - 12/28/2023 9:13 AM EDT Per pts sister, pt fell and broke her neck and is in rehab. ERCP stent removal was cx'd for 12/30. She will call back to [facility]. documented in this encounter Plan of Treatment Upcoming Encounters Date Type Department Care Team (Latest Contact Info) Description 04/01/2024 1:17 PM EST Hospital Encounter OR [facility], Operating Room, [facility] - 4th Floor [address] [place] [address] Hank Lopez MD [address] [place] [address] 04/01/2024 1:17 PM EST - 04/01/2024 1:56 PM EST Surgery OR [facility], Operating Room, [facility] - 4th Floor [address] [place] [phone] Hank Lopez MD [address] [place] [address] ENDOSCOPIC RETROGRADE CHOLANGIOPANCREATOGRAPHY (ERCP) W/STENT REMOVAL AND EXCHANGE; INC DILATION, GUIDE WIRE AND SPHINCTEROTOMY Scheduled Procedures Name Priority Associated Diagnoses Date/Ti sd ENDOSCOPIC RETROGRADE CHOLANGIOPANCREATOGRAPHY (ERCP) W/STENT REMOVAL AND [...] this encounter Medical Devices Implanted Type Area Electronic Systems Security Assessment Device Identifier Shelf Expiration Date Model / Serial / Lot Balloon Rx Hurcan 6-4x5.8 4592 - [id number] Implanted:Qty: 1 on 03/14/2023 by Juan Nguyen DO at ENDOSCOPY [facility] [employer] : ENDOSCOPY [id number] 01/11/2025 [id number] / / [id number] Cath Drainage 12fr [id number] - [id number] Implanted:Qty: 1 on 03/21/2023 at [facility] [employer] : INTRV RAD 12/26/2025 G11 975 / / [id number] Catheter 0.035in [id number] Balln Dilatation Rapid - [id number] Implanted:Qty: 1 on 04/26/2023 by Mark Morton MD at ENDOSCOPY [facility] [employer] : ENDOSCOPY [id number] 10/22/2024 [id number] / / [id number] Stent Advanix Bili Db 7fr 12cm - [id number] Implanted:Qty: 1 on 09/20/2023 by Hank Lopez MD at OR [facility] [employer] : ENDOSCOPY [id number] 02/27/2025 [id number] / / [id number] Stent Advanix Bili Db 7fr 12cm - [id number] Implanted:Qty: 1 on 09/20/2023 by Hank Lopez MD at OR [facility] [employer] : ENDOSCOPY [id number] 10/08/2024 [id number] / / [id number] documented as of this encounter Advance Directives * Full Code (Latest Code Status on File) Date Activated Date Inactivated Comments 03/09/2023 11:44 PM 03/23/2023 6:37 PM This orde r reflects the patients wishes and were consensually agreed upon. Question Answer Comments Discussion of Advance Directives occurred with: Patient Care Teams Lever Tender Relationship Specialty Start Date End Date Yessi Gray MD [address] [facility], [place] [address] PCP - General Internal Medicine 03/09/23 documented as of this encounter
--- OUTSIDE RECORDS SUMMARY | 2024-03-09 13:09 | External Medical Summary | Summary of Care ---
Author Name Unknown Organization [facility] Address [address] [place] [address] Phone [phone] Care Team Providers Care Technical Research Scientist Name Role Phone Yessi Gray MD Primary Care Provide r Reason for Visit * Reason Onset Date Comments FYI 01/23/2024 Encounter Details Date Type Department Care Team (Late st Contact Info) Description 01/23/2024 Telephone Access Center, [facility] [address] [facility] *DO NOT REMOVE THIS DEPARTMENT* [place] [address] Services, Scheduling [address] [place] [address] Allergies Active Allergy Reactions Criticality Noted Date Comments Baclofen High 02/23/2023 Other Reaction(s): Hallucinating Cyclobenzaprine High 02/23/2023 Other Reaction(s): Hallucinating documented as of this encounter (statuses as of 02/27/2024) Medications Aspirin 81 MG Tablet Take 1 [...] as of this encounter (statuses as of 02/27/2024) Active Problems Problem Noted Date Diagnosed Date JORGE (generalized anxiety disorder) 03/10/2023 Type 2 diabetes mellitus, wi th long-term current use of insulin 03/10/2023 Hyperlipidemia 03/10/2023 GERD (gastroesophageal reflux disease) 3 DEPRESSION RECURRENT( Moderate) 11/29/2005 Nausea with vomiting 12/08/2004 Gastroparesis 11/07/2004 Uterine leiomyoma 03/02/2003 documented as of this encounter (statuses as of 02/27/2024) Resolved Problems Problem Noted Date Diagnosed Date Resolved Date Elevated LFTs 03/11/2023 03/23/2023 Acute cholecystitis 03/10/2023 03/23/20 23 documented as of this encounter (statuses as of 02/27/2024) Social History Tobacco Use Types Packs/Day Years [...] Telephone Encounter - Nilda Ingram OSA - 02/27/2024 8:02 AM EST [facility] called and thought they needed to move up the ERCP. Advised an MRCP is an MRI and transferred to . * Telephone Encounter - Nita Kirkland OSA - 02/22/2024 3:13 PM EST Lm w/ senior care. They will have transportation call back on Sunday. * Telephone Encounter - Hank Lopez MD [...] - 02/19/2024 1:35 PM EST Spoke to [facility] to reschedule ERCP from 04/01/24 to 04/29/24. Person at [facility] states their doctor had wanted this pt in as soon as possible for the stent removal. He states pt was in the hospital at [place] from 01/30 to 02/12/24 with septic shock from UTI. I asked if pt was having any pain etc, he was unsure. I called for records from [place], which will be faxed to our office. FYI * Telephone Encounter - Nita Kirkland OSA - 01/23/2024 11:44 AM EDT Ercp 04/01 * Telephone Encounter - Belinda Pratt OSA - 01/23/2024 8:31 AM EDT Aruna called on patients behalf, Sole is now in the care of [facility], address and number updated on file. [...] 04/29/2024 9:27 AM EST Hospital Encounter OR [facility], Operating Room, [facility] - 4th Floor [address] [place] [address], [place] [address] Hank Lopez MD [address] [place] [address] 04/29/2024 9:27 AM EST - 04/29/2024 10:06 AM EST Surgery OR [facility], Operating Room, [facility] - 4th Floor [address] [place] [address] Hank Lopez MD [address] [place] [address] ENDOSCOPIC RETROGRADE CHOLANGIOPANCREATOGRAPHY (ERCP) W/STENT REMOVAL AND [...] this encounter Medical Devices Implanted Type Area Larry Car Operator Device Identifier Shelf Expiration Date Model / Serial / Lot Balloon Rx Hurcan 6-4x5.8 4592 - [id number] Implanted:Qty: 1 on 03/14/2023 by Juan Nguyen DO at ENDOSCOPY [facility] [employer] : ENDOSCOPY [id number] 01/11/2025 [id number] / / [id number] Cath Drainage 12fr [id number] - [id number] Implanted:Qty: 1 on 03/21/2023 at [employer] [facility] [employer] : INTRV RAD 12/26/2025 G11 975 / / [id number] Catheter 0.035in [id number] Balln Dilatation Rapid - [id number] Implanted:Qty: 1 on 04/26/2023 by Mark Morton MD at ENDOSCOPY [facility] [employer] : ENDOSCOPY [id number] 10/22/2024 [id number] / / [id number] Stent Advanix Bili Db 7fr 12cm - [id number] Implanted:Qty: 1 on 09/20/2023 by Hank Lopez MD at OR [facility] [employer] : ENDOSCOPY [id number] 02/27/2025 [id number] / / [id number] Stent Advanix Bili Db 7fr 12cm - [id number] Implanted:Qty: 1 on 09/20/2023 by Hank Lopez MD at OR [facility] [employer] : ENDOSCOPY [id number] 10/08/2024 [id number] / / [id number] documented as of this encounter Advance Directives * Full Code (Latest Code Status on File) Date Activated Date Inactivated Comments 03/09/2023 11:44 PM 03/23/2023 6:37 PM This orde r reflects the patients wishes and were consensually agreed upon. Question Answer Comments Discussion of Advance Directives occurred with: Patient Care Teams Technical Research Scientist Relationship Specialty Start Date End Date Yessi Gray MD [address] [place] [address] PCP - General Internal Medicine 03/09/23 documented as of this encounter
--- OUTSIDE RECORDS SUMMARY | 2024-03-09 13:09 | External Medical Summary | Summary of Care ---
Author Name Unknown Organization [facility] Address [address] [place] [address] Phone [phone] Care Team Providers Care Energy Efficiency Finance Manager Name Role Phone Yessi Gray MD Primary Care Provide r Reason for Visit * Reason Onset Date Comments FYI 01/23/2024 Encounter Details Date Type Department Care Team (Late st Contact Info) Description 01/23/2024 Telephone Access Center, [facility] [address] [facility] *DO NOT REMOVE THIS DEPARTMENT* [place] [address] Services, Scheduling [address] [place] [address] Allergies Active Allergy Reactions Criticality Noted Date Comments Baclofen High 02/23/2023 Other Reaction(s): Hallucinating Cyclobenzaprine High 02/23/2023 Other Reaction(s): Hallucinating documented as of this encounter (statuses as of 02/19/2024) Medications Aspirin 81 MG Tablet Take 1 [...] as of this encounter (statuses as of 02/19/2024) Active Problems Problem Noted Date Diagnosed Date JORGE (generalized anxiety disorder) 03/10/2023 Type 2 diabetes mellitus, wi th long-term current use of insulin 03/10/2023 Hyperlipidemia 03/10/2023 GERD (gastroesophageal reflux disease) 3 DEPRESSION RECURRENT( Moderate) 11/29/2005 Nausea with vomiting 12/08/2004 Gastroparesis 11/07/2004 Uterine leiomyoma 03/02/2003 documented as of this encounter (statuses as of 02/19/2024) Resolved Problems Problem Noted Date Diagnosed Date Resolved Date Elevated LFTs 03/11/2023 03/23/2023 Acute cholecystitis 03/10/2023 03/23/20 23 documented as of this encounter (statuses as of 02/19/2024) Social History Tobacco Use Types Packs/Day Years [...] encounter Miscellaneous Notes * Telephone Encounter - Joana Morris OSA - 02/19/2024 1:35 PM EST Spoke to [facility] to reschedule ERCP from 04/01/24 to 04/29/24. Person at [facility] states their doctor had wanted this pt in as soon as possible for the stent removal. He states pt was in the hospital at [place] from 01/30 to 02/12/24 with septic shock from UTI. I asked if pt was having any pain etc, he was unsure. I called for records from [place], which will be faxed to our office. FYI * Telephone Encounter - Nita Kirkland OSA - 01/23/2024 11:44 AM EDT Ercp 04/01 * Telephone Encounter - Belinda Pratt OSA - 01/23/2024 8:31 AM EDT Aruna called on patients behalf, oSle is now in the care of [facility], address and number updated on file. Patient had procedure on 09/20/[address] Lopez, with recommendation :Repeat ERCP in 3 months to exchange stent . Facility will be giving a call back once transportation can be arranged for patient care. Thank you documented in this encounter Plan of Treatment Upcoming Encounters Date Type Department Care Team (Latest Contact Info) Description 04/29/2024 8:53 AM EST Hospital Encounter OR [facility], Operating Room, [facility] - 4th Floor [address] [place] [phone] Hank Lopez MD [address] [place] [phone] 04/29/2024 8:53 AM EST - 04/29/2024 9:32 AM EST Surgery OR [facility], Operating Room, [facility] - 4th Floor [address] [place] [address] Hank Lopez MD [address] [place] [phone] ENDOSCOPIC RETROGRADE CHOLANGIOPANCREATOGRAPHY (ERCP) W/STENT REMOVAL AND EXCHANGE; INC DILATION, GUIDE WIRE AND SPHINCTEROTOMY Scheduled Procedures Name Priority Associated Diagnoses Date/Ti wy ENDOSCOPIC RETROGRADE CHOLANGIOPANCREATOGRAPHY (ERCP) W/STENT REMOVAL AND EXCHANGE; INC DILATION, GUIDE WIRE AND SPHINCTEROTOMY Encounter for removal of biliary stent 04/29/2024 8:53 AM EST Health Maintenance Due Date Last [...] HbA1c 05/13/2024 11/11/2023, 03/10/2023 GFR 01/06/2025 01/07/2024, 10/0 09/2023, 11/17/2023, Additional history exists Pneumococcal Vaccine: [...] this encounter Medical Devices Implanted Type Area Radiologic Technology Program Director Device Identifier Shelf Expiration Date Model / Serial / Lot Balloon Rx Hurcan 6-4x5.8 4592 - [id number] Implanted:Qty: 1 on 03/14/2023 by Juan Nguyen DO at ENDOSCOPY [facility] [place] [employer] : ENDOSCOPY [id number] 01/11/2025 [id number] / / [id number] Cath Drainage 12fr 627150 - [id number] Implanted:Qty: 1 on 03/21/2023 at [employer] [facility] : INTRV RAD 12/26/2025 G11 [id number] / / [id number] Catheter 0.035in [id number] [id number] Balln Dilatation Rapid - [id number] Implanted:Qty: 1 on 04/26/2023 by Mark Morton MD at ENDOSCOPY [facility] [place] [employer] : ENDOSCOPY [id number] 10/22/2024 [id number] / / [id number] Stent Advanix Bili Db 7fr 12cm - [id number] Implanted:Qty: 1 on 09/20/2023 by Hank Lopez MD at OR [facility] [employer] : ENDOSCOPY [id number] 02/27/2025 [id number] / / [id number] Stent Advanix Bili Db 7fr 12cm - [id number] Implanted:Qty: 1 on 09/20/2023 by Hank Lopez MD at OR [facility] [employer] : ENDOSCOPY [id number] 10/08/2024 [id number] / / [id number] documented as of this encounter Advance Directives * Full Code (Latest Code Status on File) Date Activated Date Inactivated Comments 03/09/2023 11:44 PM 03/23/2023 6:37 PM This orde r reflects the patients wishes and were consensually agreed upon. Question Answer Comments Discussion of Advance Directives occurred with: Patient Care Teams Energy Efficiency Finance Manager Relationship Specialty Start Date End Date Yessi Gray MD [address] [place] [address] PCP - General Internal Medicine 03/09/23 documented as of this encounter
--- OUTSIDE RECORDS SUMMARY | 2024-03-09 13:09 | External Medical Summary | Summary of Care ---
Author Name Unknown Organization [facility] Address [address] [place] [address] Phone [phone] Care Team Providers Care Emts Name Role Phone Yessi Gray MD Primary Care Provide r Reason for Visit * Reason Onset Date Comments FYI 01/23/2024 Encounter Details Date Type Department Care Team (Late st Contact Info) Description 01/23/2024 Telephone Access Center, [facility] [address] [facility] *DO NOT REMOVE THIS DEPARTMENT* [place] [address] Services, Scheduling [address] [place] [address] Allergies Active Allergy Reactions Criticality Noted Date Comments Baclofen High 02/23/2023 Other Reaction(s): Hallucinating Cyclobenzaprine High 02/23/2023 Other Reaction(s): Hallucinating documented as of this encounter (statuses as of 02/22/2024) Medications Aspirin 81 MG Tablet Take 1 [...] as of this encounter (statuses as of 02/22/2024) Active Problems Problem Noted Date Diagnosed Date JORGE (generalized anxiety disorder) 03/10/2023 Type 2 diabetes mellitus, wi th long-term current use of insulin 03/10/2023 Hyperlipidemia 03/10/2023 GERD (gastroesophageal reflux disease) 3 DEPRESSION RECURRENT( Moderate) 11/29/2005 Nausea with vomiting 12/08/2004 Gastroparesis 11/07/2004 Uterine leiomyoma 03/02/2003 documented as of this encounter (statuses as of 02/22/2024) Resolved Problems Problem Noted Date Diagnosed Date Resolved Date Elevated LFTs 03/11/2023 03/23/2023 Acute cholecystitis 03/10/2023 03/23/20 23 documented as of this encounter (statuses as of 02/22/2024) Social History Tobacco Use Types Packs/Day Years [...] Kirkland OSA - 02/22/2024 3:13 PM EST [facility]. They will have transportation call back on [...] - 02/19/2024 1:35 PM EST Spoke to [facility] to reschedule ERCP from 04/01/24 to 04/29/24. Person at [facility] states their doctor had wanted this pt in as soon as possible for the stent removal. He states pt was in the hospital at [place] from 01/30 to 02/12/24 with septic shock from UTI. I asked if pt was having any pain etc, he was unsure. I called for records from [place], which will be faxed to our office. FYI * Telephone Encounter - Nita Kirkland OSA - 01/23/2024 11:44 AM EDT Ercp 04/01 * Telephone Encounter - Belinda Pratt OSA - 01/23/2024 8:31 AM EDT Aruna called on patients behalf, Sole is now in the care of [facility], address and number updated on file. Patient [...] 04/29/2024 9:27 AM EST Hospital Encounter OR [facility], Operating Room, [facility] - 4th Floor [address] [place] [address] Hank Lopez MD [address] [place] [phone] 04/29/2024 9:27 AM EST - 04/29/2024 10:06 AM EST Surgery OR [facility], Operating Room, [facility] - 4th Floor [address] [place] [phone] Hank Lopez MD [address] [place] [address] ENDOSCOPIC RETROGRADE CHOLANGIOPANCREATOGRAPHY (ERCP) W/STENT REMOVAL AND EXCHANGE; INC DILATION, GUIDE WIRE AND SPHINCTEROTOMY Scheduled Procedures Name Priority Associated Diagnoses Date/Ti ak ENDOSCOPIC RETROGRADE CHOLANGIOPANCREATOGRAPHY (ERCP) W/STENT REMOVAL AND [...] this encounter Medical Devices Implanted Type Area Clearing Hand Device Identifier Shelf Expiration Date Model / Serial / Lot Balloon Rx Hurcan 6-4x5.8 4592 - [id number] Implanted:Qty: 1 on 03/14/2023 by Juan Nguyen DO at ENDOSCOPY [facility] [place] [employer] : ENDOSCOPY [id number] 01/11/2025 [id number] / / [id number] Cath Drainage 12fr [id number] - [id number] Implanted:Qty: 1 on 03/21/2023 at [employer] [facility] : INTRV RAD 12/26/2025 G11 975 / / [id number] Catheter 0.035in 5.2zrr400cn 9rbt8pi Balln Dilatation Rapid - [id number] Implanted:Qty: 1 on 04/26/2023 by Mark Morton MD at [place]OSCOPY [facility] [place] [employer] : ENDOSCOPY [id number] 10/22/2024 [id number] / / [id number] Stent Advanix Bili Db 7fr 12cm - [id number] Implanted:Qty: 1 on 09/20/2023 by Hank Lopez MD at OR [facility] [employer] : ENDOSCOPY [id number] 02/27/2025 [id number] / / [id number] Stent Advanix Bili Db 7fr 12cm - [id number] Implanted:Qty: 1 on 09/20/2023 by Hank Lopez MD at OR [facility] [employer] : ENDOSCOPY [id number] 10/08/2024 [id number] / / [id number] documented as of this encounter Advance Directives * Full Code (Latest Code Status on File) Date Activated Date Inactivated Comments 03/09/2023 11:44 PM 03/23/2023 6:37 PM This orde r reflects the patients wishes and were consensually agreed upon. Question Answer Comments Discussion of Advance Directives occurred with: Patient Care Teams Emts Relationship Specialty Start Date End Date Yessi Gray MD [address] [facility] [place] [address] PCP - General Internal Medicine 03/09/23 documented as of this encounter
[2024-03-09] MEDS: POTASSIUM CHLORIDE 40 MEQ in SODIUM CHLORIDE 0.45 % 1,000 ML IV SCH ×2 (13:11→18:21)
[2024-03-09 13:18] LABS: BUN Creatinine Ratio 29.2 (10-20); Calcium 9.8 mg/dl (8.6-10.3); Creatinine Clr Calc Pharmacy 27.3 ml/min; Phosphorus 2.3 mg/dl (2.5-4.9); Potassium 3.6 mmol/L (3.5-5.1)
[2024-03-09] MEDS: PENDING D5 1/2NS+40mEq KCL IVF SCH (13:25)
[2024-03-09] MEDS ORDERED: Nursing to Pharmacy Communication SCH ×2 (13:30→17:15)
--- NOTE | 2024-03-09 14:09 | Pharmacy Report ---
Pharmacy Glycemic Short Note 2 - Date of Service March 09, 2024 - Glycemic Short BSG Results (Last 24 hours): 03/09/24 03/09/24 03/09/24 09:10 09:15 10:28 Glucose 518 H* POC Glucose 349 H* POC Glucose (other) 518 H* 03/09/24 03/09/24 03/09/24 11:11 12:14 12:46 Glucose 204 H POC Glucose 338 H* 275 H POC Glucose (other) 03/09/24 13:15 Glucose POC Glucose 192 H POC Glucose (other) OUTPATIENT ANTIDIABETIC REGIMEN: * NovoLog TIDM (pre-meal BSG <250 --> 14 units, pre-meal BSG >250--> 18 units, hold if eating less than 25% of meal) * Lantus 16 units SQ BID * HbA1c 9.1% (01/12/24) ASSESSMENT: * Sole is a 73 YOF admitted with pneumonia/sepsis and a history of type 2 diabetes mellitus with hyperglycemia upon admission. Pharmacy has been consulted to assist with glycemic management. * Upon admission BSG 518, AG 16, CO2 23, lactic acid 5.7. Decision was made to begin an insulin infusion to correct hyperglycemia. BSGs trending down into goal range at this time and D51/2NS + 40KCl added to regimen. Plan to maintain insulin drip at this time due to ICU status and high risk of respiratory failure as well as beginning on stress dose IV steroids. PLAN FOR INPATIENT GLYCEMIC CONTROL: * Hold outpatient oral diabetes medications * Continue with insulin drip
[2024-03-09] MEDS: D5W 1/2NSS + KCL 40 mEq IV SCH (14:45)
[2024-03-09] MEDS: LANTUS PER UNIT CHARGE SQ SCH ×2 (16:27→21:45)
[2024-03-09] MEDS: PENDING 1/2NSS+40mEq KCL IVF SCH (16:28)
[2024-03-09 17:42] LABS: BUN Creatinine Ratio 29.4 (10-20); Calcium 9.9 mg/dl (8.6-10.3); Creatinine Clr Calc Pharmacy 27.4 ml/min; Magnesium 2.2 mg/dl (1.7-2.4); Phosphorus 3.3 mg/dl (2.5-4.9); Potassium 4.5 mmol/L (3.5-5.1)
[2024-03-09] MEDS ORDERED: DC IV INSULIN INFUSION 1 EA DEVI ONE (18:00)
[2024-03-09] MEDS: ACETAMINOPHEN 1,000 MG/100 ML VIAL IV PRN (19:30)
[2024-03-09 19:49] LABS: iSTAT Allen Test Pass; iSTAT Art Bld Gas pCO2 Correct 35 mmHg (35-46); iSTAT Art Bld Gas pH Corrected 7.378 (7.35-7.45); iSTAT Arterial Blood Gas HCO3 20 meg/L (19-24); iSTAT Arterial Blood Gas pCO2 32 mmHg (35-46); iSTAT Arterial Blood Gas pH 7.41 (7.35-7.45); iSTAT Arterial Blood Gas pO2 68 mmHg (80-95); iSTAT Arterial Blood Gas pO2 C 77; iSTAT Carbon Dioxide 21 mmol/L (24-31); iSTAT FiO2 40 %; iSTAT Hematocrit 31 % (37-47); iSTAT Hemoglobin 10.5 g/dl (12.0-16.0); iSTAT Potassium 4.6 mmol/L (3.3-5.0); iSTAT Sample Type Arterial; iSTAT Site L Radial; iSTAT Sodium 142 mmol/L (135-144); iSTAT SpO2 94
[2024-03-09] MEDS ORDERED: INSULIN ASPART PER UNIT CHARGE SC SCH (20:00)
[2024-03-09 22:07] LABS: BUN Creatinine Ratio 33.3 (10-20); Calcium 9.6 mg/dl (8.6-10.3); Creatinine Clr Calc Pharmacy 32.5 ml/min; Phosphorus 2.7 mg/dl (2.5-4.9); Potassium 4.5 mmol/L (3.5-5.1)
[2024-03-09] MEDS: CEFEPIME 1000MG 1,000 MG/10 ML SYR IV SCH (22:38)
[2024-03-10] MEDS ORDERED: CARBOHYDRATES FOR HYPOGLYCEMIA PO PRN ×2 (00:15→03:45)
[2024-03-10] MEDS ORDERED: GLUCOSE 40% GEL 15 GM TUBE PO PRN ×2 (00:15→03:45)
[2024-03-10] MEDS ORDERED: DEXTROSE 50% 50 ML SYRINGE IV PRN ×2 (00:15→03:45)
[2024-03-10] MEDS ORDERED: GLUCOSE 10 TAB/TUBE PO PRN ×2 (00:15→03:45)
[2024-03-10] MEDS ORDERED: GLUCAGON FOR INJ 1 MG VIAL SQ PRN ×2 (00:15→03:45)
[2024-03-10 01:19] LABS: BUN Creatinine Ratio 34.1 (10-20); Calcium 9.7 mg/dl (8.6-10.3); Creatinine Clr Calc Pharmacy 34.9 ml/min; Magnesium 1.8 mg/dl (1.7-2.4); Phosphorus 1.9 mg/dl (2.5-4.9); Potassium 4.2 mmol/L (3.5-5.1)
[2024-03-10] MEDS: INSULIN ASPART PER UNIT CHARGE SC SCH (04:11)
[2024-03-10] MEDS: LANTUS PER UNIT CHARGE SQ ONE (04:11)
[2024-03-10] MEDS: PLASMA-LYTE A 1,000 ML IV SCH (04:11)
[2024-03-10] MEDS: MAGNESIUM SULFATE / D5W 1 GM/100 ML BAG IV SCH (04:12)
[2024-03-10 05:42] LABS: BUN Creatinine Ratio 34.9 (10-20); Calcium 9.4 mg/dl (8.6-10.3); Creatinine Clr Calc Pharmacy 40.3 ml/min; Magnesium 1.9 mg/dl (1.7-2.4); Phosphorus 1.8 mg/dl (2.5-4.9); Potassium 4.2 mmol/L (3.5-5.1)
--- NOTE | 2024-03-10 06:09 | Electrocardiogram Report ---
Test Reason : Blood Pressure : */* mmHG Vent. Rate : 128 BPM Atrial Rate : 128 BPM P-R Int : 136 ms QRS Dur : 88 ms QT Int : 314 ms P-R-T Axes : -29 -29 60 degrees QTcB Int : 458 ms Sinus tachycardia Cannot rule out Anterior infarct , age undetermined Nonspecific T wave abnormality Abnormal ECG When compared with ECG of 07-Feb-2024 12:57, Vent. rate has increased by 48 bpm QRS duration has increased Confirmed by Shaq Sumner ([id number]) on 03/10/2024 6:09:24 AM Referred By: [facility] Confirmed By: Shaq Sumner
--- NOTE | 2024-03-10 06:12 | CT Scan Report ---
EXAM: CT head/brain wo con CLINICAL HISTORY: AMS. TECHNIQUE: Axial non-contrast CT scan of the brain was performed from the skull base to the high parietal region with multiple reformats. One of the following dose reduction techniques were utilized for this exam: Automated exposure control, adjustment of the mA and/or kV according to patient size, use of iterative reconstruction. COMPARISON: CT 02/07/2024 FINDINGS: Brain Parenchyma: Normal attenuation of the cerebral hemispheres, cerebellum, and brainstem. No evidence of acute infarct, hemorrhage, or mass effect. No abnormal areas of hypo- or hyperattenuation. Generalized cortical atrophy. Ventricular System: Age-related prominent ventricular system, cisterns and cortical sulci. Subarachnoid Spaces: Normal sulci and cisterns. No evidence of subarachnoid hemorrhage or extra-axial fluid collections. Cerebellum and Brainstem: Extensive artifacts from the cervical spine fixators and dental findings are obscuring the posterior fossa details. Orbits: Normal appearance of the globes, optic nerves, and extraocular muscles. Sinuses: Clear paranasal sinuses. No evidence of sinusitis or mucosal thickening. Mastoid Air Cells: Clear mastoid air cells. No evidence of mastoiditis. Skull: Normal skull morphology. IMPRESSION: 1. No acute abnormality seen. 2. Age-related involutional changes. 3. Extensive artifact from upper cervical spine fixators and dental fillings are obscuring the posterior fossa details. 4. No significant changes since prior examination. Electronically signed by Lisseth López 03-10-2024 06:12 AM
[2024-03-10] MEDS ORDERED: INSULIN ASPART PER UNIT CHARGE SC SCH (07:30)
[2024-03-10] MEDS ORDERED: POTASSIUM PHOS 3 MMOL/1 ML INFUSION IV STA (07:38)
[2024-03-10] MEDS: POTASSIUM PHOSPHATE 15 MMOL in SODIUM CHLORIDE 0.9% 250 ML IV ONE (08:08)
[2024-03-10] MEDS: HYDROCORTISONE SOD 50 MG in SYRINGE 0 ML IV SCH (08:10)
[2024-03-10 08:25] LABS: Hematocrit (blood only) 32.8 % (37.0-47.0); Hemoglobin 10.4 g/dl (12.0-16.0); Mean Corpuscular Hemoglobin 29.1 pg (25.0-34.0); Mean Corpuscular Hgb Conc 31.7 g/dL (32.0-36.0); Mean Corpuscular Volume 91.6 fL (80.0-100.0); Mean Platelet Volume 10.7 fL (9.4-12.4); Platelet Count 163 K/uL (130-400); RDW Coefficient of Variation 14.4 % (11.5-14.5); RDW Standard Deviation 48.9 fL (36.4-46.3); Red Blood Count 3.58 M/uL (4.20-5.40); White Blood Count 10.41 K/ul (4.8-10.8)
[2024-03-10 08:30] LABS: Troponin I High Sensitivity 40.1 pg/ml (0-14)
[2024-03-10 08:52] LABS: Basophils # (auto) 0.04 K/uL (0.00-0.20); Basophils % (auto) 0.4 %; Eosinophils # (auto) 0.11 K/uL (0.00-0.50); Eosinophils % (auto) 1.1 %; Immature Granulocytes # (auto) 0.02 K/uL (0.01-0.20); Immature Granulocytes % (auto) 0.2 %; Lymphocytes # (auto) 1.25 K/uL (1.20-3.40); Monocytes # (auto) 0.56 K/uL (0.11-0.59); Monocytes % (auto) 5.4 %; Neutrophils # (auto) 8.43 K/uL (1.40-6.50); Neutrophils % (auto) 80.9 %
[2024-03-10 09:24] LABS: iSTAT Arterial Blood Gas HCO3 22 meg/L (19-24); iSTAT Arterial Blood Gas pCO2 40 mmHg (35-46); iSTAT Arterial Blood Gas pH 7.35 (7.35-7.45); iSTAT Arterial Blood Gas pO2 333 mmHg (80-95); iSTAT Carbon Dioxide 23 mmol/L (24-31); iSTAT Hematocrit 35 % (37-47); iSTAT Hemoglobin 11.9 g/dl (12.0-16.0); iSTAT Potassium 4.2 mmol/L (3.3-5.0); iSTAT Sodium 141 mmol/L (135-144)
[2024-03-10] MEDS: CEFEPIME 2000MG 2,000 MG/20 ML SYR IV SCH (10:41)
--- NOTE | 2024-03-10 12:08 | Critical Care Progress Note ---
Date of Service March 10, 2024 Assessment & Plan (1) Acute UTI: (2) Acute hyperglycemia: (3) Tachypnea: (4) Adrenal insufficiency: Plan Impression: 73-year-old female from [facility] facility with 2 strains of Pseudomonas/UTI admitted with sepsis, encephalopathy, and lactic acidosis. 24-hour events: Patient was admitted to the ICU. She was volume resuscitated. Pressors were weaned off. She was placed on BiPAP for reasons are not entirely clear. BiPAP was discontinued this morning and the patient is doing reasonably well currently. Recommendations: 1. Neurologic: Encephalopathy: Unclear baseline although review of the patient's prior admissions indicate this may not be far off from her baseline. We discussed utility of performing a lumbar puncture as well as additional adjuncts including EEG and MRI of the brain however as the patient appears to be clinically responding and has had multiple similar presentations, continued conservative management will be undertaken. If she remains persistently febrile or if mental status fails to clear, additional evaluation including EEG, MRI, and LP might be appropriate. Unclear if the patient's prior spinal fusion would allow for MRI or not. 2. Cardiovascular: Severe sepsis with septic shock. Patient presented initially with lactic acidosis which has resolved. 3. Pulmonary: Patient demonstrated compensatory respiratory alkalosis and associated with her metabolic acidosis. No indication for BiPAP currently. Discontinued. Continue oxygen to keep saturations at or above 90%. 4. Renal: Patient presented with renal insufficiency which has improved. Acid- base status currently reassuring and electrolytes are appropriate. Volume status adequate. 5. GI: Prior history of cholecystectomy with biliary stent in place. She has a small amount of pneumobilia but exam reassuring and LFTs unremarkable without evidence of ascending cholangitis. Patient was evaluated by GI during her prior admission a few weeks ago and biliary source was felt to be unlikely. No indication for additional imaging in the absence of clinical symptoms currently. Will need to follow-up with GI in the outpatient setting for exchange of the stent. 6. Endocrine: Patient with a history of relative adrenal insufficiency. Currently on hydrocortisone. Continue for now. She continues to have hyperglycemia likely exacerbated by steroids for relative adrenal insufficiency. Continue insulin per pharmacy. 7. Heme-onc: Mild anemia: Leukocytosis improved. No indication for acute blood loss or transfusion currently. 8. ID: White blood cell count has decreased from 20,000 down to 10,000. Urine cultures growing 2 species of Pseudomonas with sensitivities pending. Will increase cefepime to appropriate antipseudomonal doses per pharmacy and follow. Patient's overall prognosis is guarded. She has multiorgan system dysfunction and is critically ill with significant possibility of clinical decline. DNR/DNI status confirmed. Given the patient's functional decline, would be reasonable to pursue palliative care options with the patient's mother should she fail to show significant clinical improvement. Admission and Anticipated Discharge Date Admission Date: March 09, 2024 Subjective Patient seen and examined. EMR reviewed. Discussed with off going paint spray inspector as well as with overnight critical care GELY. Patient was also discussed with bedside critical care nurse and multidisciplinary rounds. Patient remains with altered mental status although according to her family nicola johnson is that she is bedbound the majority of the time and occasionally nonverbal. She has been hemodynamically stable. Breathing is better once noninvasive positive pressure ventilation has been discontinued Review of Systems Review of Systems: Unobtainable due to cognitive status Physical Exam Constitutional: + ill appearing and + lethargic Neck: trachea midline, no thyromegaly Respiratory: + labored breathing and + tachypneic; no cough Auscultation: no crackles, no rhonchi and no wheezes Cardiovascular: Rate/Rhythm: + tachycardic Heart Sounds: normal S1 and normal S2; no murmur Extremities: no edema Gastrointestinal (Abdomen): normal bowel sounds, soft, nontender, no hepatosplenomegaly Musculoskeletal: Extremities: extremities normal to inspection Skin: no rashes, warm and dry Neurologic: Nonfocal exam Lymphatic: no cervical lymphadenopathy Results & Data Results & Data Vital Signs (Past 12 Hours) Vital Signs Temp Pulse Resp BP Pulse Ox O2 Del Method FiO2 03/10/24 10:00 134/81 03/10/24 10:00 38.4 C H 107 H 29 H 94 03/10/24 09:06 38.7 C H 112 H 28 H 95 03/10/24 09:00 141/89 H 03/10/24 08:51 38.7 C H 115 H 24 95 03/10/24 08:09 39.0 C H 118 H 34 H 93 03/10/24 08:00 BiPAP 40 03/10/24 07:44 114 H 33 H 93 40 03/10/24 07:06 38.7 C H 112 H 33 H 94 12/16/24 07:01 158/93 H 03/10/24 06:48 38.2 C H 108 H 28 H 94 03/10/24 06:24 151/85 H 03/10/24 06:24 38.0 C H 107 H 25 H 93 03/10/24 06:09 38.0 C H 107 H 22 93 03/10/24 05:33 37.9 C H 103 H 26 H 93 03/10/24 04:21 37.7 C H 100 H 23 95 03/10/24 04:00 124/73 03/10/24 03:51 37.7 C H 100 H 22 94 03/10/24 03:15 100 H 31 H 94 40 03/10/24 03:06 37.7 C H 100 H 23 94 03/10/24 03:00 126/70 03/10/24 03:00 126/70 03/10/24 03:00 126/70 03/10/24 02:51 37.8 C H 100 H 21 94 03/10/24 02:06 105 H 25 H 03/10/24 01:03 38.2 C H 105 H 23 94 03/10/24 01:00 131/78 03/10/24 01:00 131/78 03/10/24 00:54 38.2 C H 105 H 24 94 03/10/24 00:00 132/80 03/10/24 00:00 38.4 C H 106 H 24 95 03/10/24 00:00 106 H Critical Care Results & Data Vital Signs (Past 12 Hours) Vital Signs Temp Pulse Resp BP Pulse Ox O2 Del Method FiO2 03/10/24 10:00 134/81 03/10/24 10:00 38.4 C H 107 H 29 H 94 03/10/24 09:06 38.7 C H 112 H 28 H 95 03/10/24 09:00 141/89 H 03/10/24 08:51 38.7 C H 115 H 24 95 03/10/24 08:09 39.0 C H 118 H 34 H 93 03/10/24 08:00 BiPAP 40 03/10/24 07:44 114 H 33 H 93 40 03/10/24 07:06 38.7 C H 112 H 33 H 94 03/10/24 07:01 158/93 H 03/10/24 06:48 38.2 C H 108 H 28 H 94 03/10/24 06:24 151/85 H 03/10/24 06:24 38.0 C H 107 H 25 H 93 03/10/24 06:09 38.0 C H 107 H 22 93 03/10/24 05:33 37.9 C H 103 H 26 H 93 03/10/24 04:21 37.7 C H 100 H 23 95 03/10/24 04:00 124/73 03/10/24 03:51 37.7 C H 100 H 22 94 03/10/24 03:15 100 H 31 H 94 40 03/10/24 03:06 37.7 C H 100 H 23 94 03/10/24 03:00 126/70 03/10/24 03:00 126/70 03/10/24 03:00 126/70 03/10/24 02:51 37.8 C H 100 H 21 94 03/10/24 02:06 105 H 25 H 03/10/24 01:03 38.2 C H 105 H 23 94 03/10/24 01:00 131/78 03/10/24 01:00 131/78 03/10/24 00:54 38.2 C H 105 H 24 94 Lab & Micro Results (Past 24 Hours) RBC 3.58 M/uL (4.20-5.40) L 03/10/24 WBC 10.41 K/ul (4.8-10.8) 03/10/24 Hgb 10.4 g/dl (12.0-16.0) L 03/10/24 Hct 32.8 % (37.0-47.0) L 03/10/24 MCV 91.6 fL (80.0-100.0) 03/10/24 MCH 29.1 pg (25.0-34.0) 03/10/24 MCHC 31.7 g/dL (32.0-36.0) L 03/10/24 RDW Standard Deviation 48.9 fL (36.4-46.3) H 03/10/24 RDW Coefficient of Variation 14.4 % (11.5-14.5) 03/10/24 Plt Count 163 K/uL (130-400) 03/10/24 MPV 10.7 fL (9.4-12.4) 03/10/24 Neutrophils (%) (Auto) 80.9 % 03/10/24 Lymphocytes (%) (Auto) 12.0 % 03/10/24 Monocytes # (Auto) 0.56 K/uL (0.11-0.59) 03/10/24 Eosinophils # (Auto) 0.11 K/uL (0.00-0.50) 03/10/24 Immature Granulocyte % (Auto) 0.2 % 03/10/24 Neutrophils # (Auto) 8.43 K/uL (1.40-6.50) H 03/10/24 Lymphocytes # (Auto) 1.25 K/uL (1.20-3.40) 03/10/24 Monocytes # (Auto) 0.56 K/uL (0.11-0.59) 03/10/24 Eosinophils # (Auto) 0.11 K/uL (0.00-0.50) 03/10/24 Basophils # (Auto) 0.04 K/uL (0.00-0.20) 03/10/24 Immature Granulocyte # (Auto) 0.02 K/uL (0.01-0.20) 4 Na 143 mmol/L (136-145) 03/10/24 K 4.2 mmol/L (3.5-5.1) 03/10/24 Cl 112 mmol/L (98-107) H 03/10/24 CO2 25 mmol/L (21-32) 03/10/24 Anion Gap 6 (3-11) 03/10/24 BUN 38 mg/dl (6-23) H 03/10/24 Creatinine 1.09 mg/dl (0.6-1.2) 03/10/24 BUN/Creatinine Ratio 34.9 (10-20) H 03/10/24 Glu 148 mg/dl (70-99(Fasting)) H 03/10/24 Ca 9.4 mg/dl (8.6-10.3) 03/10/24 Phosphorus Level 1.8 mg/dl (2.5-4.9) L 03/10/24 Mg 1.9 mg/dl (1.7-2.4) 03/10/24 04:29 Calcium Level 9.4 mg/dl (8.6-10.3) 03/10/24 04:29 Venous Blood pH 7.42 (7.36-7.41) H 03/10/24 04:29 Miguel Test Pass 03/09/24 19:36 Microbiology 03/09/24 09:49 Aerobic Blood Culture - Preliminary Blood No growth in Aerobic bottle after 24 hours. Anaerobic Blood Culture - Preliminary No growth in Anaerobic bottle after 24 hours. 03/09/24 09:10 Aerobic Blood Culture - Preliminary Blood No growth in Aerobic bottle after 24 hours. Anaerobic Blood Culture - Preliminary No growth in Anaerobic bottle after 24 hours. 03/09/24 09:20 Urine Culture - Preliminary Urine,Straight Cath Pseudomonas aeruginosa Pseudomonas aeruginosa#2 Diagnostic Findings (Past 24 Hours) Head CT 03/10/24 02:57 EXAM: CT head/brain wo con CLINICAL HISTORY: AMS. TECHNIQUE: Axial non-contrast CT scan of the brain was performed from the skull base to the high parietal region with multiple reformats. One of the following dose reduction techniques were utilized for this exam: Automated exposure control, adjustment of the mA and/or kV according to patient size, use of iterative reconstruction. COMPARISON: CT 02/07/2024 FINDINGS: Brain Parenchyma: Normal attenuation of the cerebral hemispheres, cerebellum, and brainstem. No evidence of acute infarct, hemorrhage, or mass effect. No abnormal areas of hypo- or hyperattenuation. Generalized cortical atrophy. Ventricular System: Age-related prominent ventricular system, cisterns and cortical sulci. Subarachnoid Spaces: Normal sulci and cisterns. No evidence of subarachnoid hemorrhage or extra-axial fluid collections. Cerebellum and Brainstem: Extensive artifacts from the cervical spine fixators and dental findings are obscuring the posterior fossa details. Orbits: Normal appearance of the globes, optic nerves, and extraocular muscles. Sinuses: Clear paranasal sinuses. No evidence of sinusitis or mucosal thickening. Mastoid Air Cells: Clear mastoid air cells. No evidence of mastoiditis. Skull: Normal skull morphology. IMPRESSION: 1. No acute abnormality seen. 2. Age-related involutional changes. 3. Extensive artifact from upper cervical spine fixators and dental fillings are obscuring the posterior fossa details. 4. No significant changes since prior examination. Electronically signed by Lisseth López 03-10-2024 06:12 AM I & O Totals 24 Hours 03/09/24 03/10/24 03/11/24 06:59 06:59 06:59 Intake Total 4929.384 / 4929.384 440.833 / 440.833 Output Total 975 / 975 Balance 3954.384 / 3954.384 440.833 / 440.833 Cumulative 03/09/24 08:57 thru 03/10/24 10:53 Intake Total 5370.217 Output Total 975 Balance 4395.217 RT Ventilator Mngmt (Last Documented) Ventilator Ordered Settings Respiratory Rate 29 03/10/24 10:00 Fraction of Inspired Oxygen 40 03/10/24 08:00 Ventilator - PT Measurements Respiratory Rate 29 Coding Level of Care Code 82526 CRITICAL CARE 1ST 30-74M Diagnoses Acute UTI N39.0 Acute hyperglycemia R73.9 Tachypnea R06.82 Adrenal insufficiency E27.40
--- NOTE | 2024-03-10 13:30 | Hospitalist Progress Note ---
Date of Service March 10, 2024 Assessment & Plan (1) Sepsis: Plan: Patient is a 73-yo female with PMH of CKD, DM 2, gastroparesis, vitamin D deficiency, relative adrenal insufficiency, cervical spine fracture, asthma, GERD, depression/anxiety, and recent Takotsubo cardiomyopathy who presented with altered mental status, found to have sepsis, UTI, possible pneumonia, and hyperglycemia with acute kidney injury and acute respiratory failure with hypoxemia and acute respiratory distress On admission, she was tachycardic, hypotensive, tachypneic, and on BiPAP. With significant leukocytosis of 20, elevated lactate, and mildly elevated procalcitonin. BPs responded to volume resuscitation and stress dose steroids with IV hydrocortisone 100 Mg x 1 in ER-did not need vasopressors CXR w/ RLL PNA and with abnormal UA Blood cxs remain NGTD, urine cx now with 2 strains of Pseudomonas Does have a CBD stent in place but T. bili/AST/ALT normal, alkaline phosphatase elevated but much lower than previous; abdomen nontender and soft making GI source less likely Started on cefepime and daptomycin upon admission-MRSA nasal swab negative, can now discontinue daptomycin Increase cefepime to Pseudomonas dosing Resume IV hydrocortisone 50 Mg IV every 8 hours for stress dose steroids Continue to follow blood cultures, urine culture Follow CBC, CMP, magnesium, phosphorus APAP as needed for fever (2) Encephalopathy: Plan: Secondary to sepsis, relative adrenal insufficiency, hypoxemia, DKA, but given fevers and encephalopathy, could consider meningoencephalitis or seizures, neurological focal issue-defer to twitchell operator-given previous similar presentations of encephalopathy as per history--> hold off on LP or brain MRI or EEG at this time CT head negative for acute Continue to treat sepsis and adrenal insufficiency and DKA Continues on n.p.o. status as she is not mentating enough to tolerate a diet- Home p.o. medications on hold (3) UTI (urinary tract infection): Plan: Plan as noted above (4) DKA (diabetic ketoacidoses): Plan: BG 518 on admission, with pH 7.28, serum bicarbonate 21 with anion gap 16. Also with lactic acidosis contributing last A1c 01/12/24: 9.1% on Insulin therapy and Metformin outpatient Was on insulin drip and now weaned off to basal and bolus insulin Pharmacy glycemic consult is managing Continues with some hyperglycemia secondary to IV steroid use Keep electrolytes replete-give IV potassium phosphorus, received IV magnesium overnight (5) LUTHER (acute kidney injury): Plan: Creatine elevated on admission at 1.72, baseline ~0.8-likely prerenal and ATN secondary to DKA, sepsis s/p 2L NSS in ER and continues on IV fluids here while n.p.o. Creatinine now improved down to 1.09 Follow BMP Avoid nephrotoxins and renally dose medications when needed (6) Pneumonia: Plan: CXR + for RLL infiltrate. Respiratory viral biofire panel is negative Following blood cultures, continuing supplemental oxygen as needed Follow chest imaging to resolution (7) Adrenal insufficiency: Plan: Diagnosed on last hospital admission (01/31/24-02/12/24) On hydrocortisone outpatient - 20mg in AM and 10mg PM Giving stress dose steroids (8) Demand ischemia: Plan: Troponin mildly elevated at 28/39/40, ECG here with sinus tachycardia but no ischemic changes. Difficult to say clinically if having angina as she is encephalopathic With a recent history of Takotsubo cardiomyopathy last admission Plan to repeat echocardiogram this admission to reassess ejection fraction (9) Nonischemic cardiomyopathy: Plan: As noted above, plan to repeat echocardiogram once more stabilized Is not on heart failure medication on home medication list-it appears she was not placed on any guideline directed medical therapy on discharge from last admission due to ongoing issues with hypotension Follow and add guideline directed medical therapy as able to in the future Plan CAD-presumed based on severe calcifications of the coronary arteries seen on CT scan-holding home aspirin, statin Depression/anxiety-holding home bupropion and venlafaxine, BuSpar while n.p.o. with encephalopathy Neuropathy-holding home gabapentin GERD-holding home p.o. pantoprazole-add IV PPI once daily while n.p.o. DVT prophylaxis-add Lovenox SQ, add SCDs Disposition-continued stay in ICU Admission and Anticipated Discharge Date Admission Date: March 09, 2024 Subjective Patient very lethargic and would barely open her eyes in response to verbal command. She was weaned off BiPAP to facemask this morning. She was febrile through the night and morning Telemetry was sinus tachycardia Physical Exam Constitutional: + ill appearing Respiratory: + tachypneic; no cough Auscultation: + crackles (Right base); no rhonchi and no wheezes Cardiovascular: Rate/Rhythm: regular rhythm and + tachycardic Heart Sounds: no murmur Extremities: no edema Gastrointestinal (Abdomen): normal bowel sounds, soft, nontender, no hepatosplenomegaly Neurologic: + obtunded; + not awake Results & Data Results & Data Vital Signs (Past 12 Hours) Vital Signs Temp Pulse Resp BP Pulse Ox O2 Del Method FiO2 03/10/24 13:00 112/83 03/10/24 12:48 37.5 C 96 H 22 93 03/10/24 12:03 37.5 C 95 H 22 93 03/10/24 12:00 130/85 03/10/24 11:57 37.5 C 96 H 25 H 93 03/10/24 11:00 111/74 03/10/24 11:00 37.8 C H 98 H 25 H 92 03/10/24 10:00 134/81 03/10/24 10:00 38.4 C H 107 H 29 H 94 03/10/24 09:06 38.7 C H 112 H 28 H 95 03/10/24 09:00 141/89 H 03/10/24 08:51 38.7 C H 115 H 24 95 03/10/24 08:09 39.0 C H 118 H 34 H 93 03/10/24 08:00 BiPAP 40 03/10/24 07:44 114 H 33 H 93 40 03/10/24 07:06 38.7 C H 112 H 33 H 94 03/10/24 07:01 158/93 H 03/10/24 06:48 38.2 C H 108 H 28 H 94 03/10/24 06:24 151/85 H 03/10/24 06:24 38.0 C H 107 H 25 H 93 03/10/24 06:09 38.0 C H 107 H 22 93 03/10/24 05:33 37.9 C H 103 H 26 H 93 03/10/24 04:21 37.7 C H 100 H 23 95 03/10/24 04:00 124/73 03/10/24 03:51 37.7 C H 100 H 22 94 03/10/24 03:15 100 H 31 H 94 40 03/10/24 03:06 37.7 C H 100 H 23 94 03/10/24 03:00 126/70 03/10/24 03:00 126/70 03/10/24 03:00 126/70 03/10/24 02:51 37.8 C H 100 H 21 94 03/10/24 02:06 105 H 25 H Laboratory Results CBC, BMP, magnesium, phosphorus, troponin, VBG reviewed Blood cultures and urine culture reviewed PG Care Time/CCT Total # of Minutes Spent Total Time Spent with Patient: Total time spent is greater than 50% in coordination of care (as documented) at patient's floor/unit and/or counseling patient: Coding Level of Care Code 15960 SUB INP/OBS CARE 3/50MIN Diagnoses Sepsis A41.9 Sepsis acute organ dysfunction status: unspecified Sepsis type: sepsis due to unspecified organism Encephalopathy G93.40 UTI (urinary tract infection) N39.0 DKA (diabetic ketoacidoses) E13.10 LUTHER (acute kidney injury) N17.9 Pneumonia J18.9 Adrenal insufficiency E27.40 Demand ischemia I24.89 Nonischemic cardiomyopathy I42.8 (1) Sepsis Sepsis acute organ dysfunction status: unspecified Sepsis type: sepsis due to unspecified organism Qualified Code(s): A41.9 - Sepsis, unspecified organism
--- NOTE | 2024-03-10 13:31 | Pharmacy Report ---
Pharmacy Glycemic Short Note 2 - Date of Service March 10, 2024 - Glycemic Short BSG Results (Last 24 hours): 03/09/24 03/09/24 03/09/24 14:13 14:29 15:05 Glucose POC Glucose 112 H 96 101 H 03/09/24 03/09/24 03/09/24 16:03 16:55 17:03 Glucose 212 H POC Glucose 136 H 193 H 03/09/24 03/09/24 03/09/24 18:09 19:23 21:06 Glucose 369 H* POC Glucose 274 H 310 H* 03/09/24 03/09/24 03/09/24 21:43 22:39 23:51 Glucose POC Glucose 309 H* 281 H 248 H 03/10/24 03/10/24 03/10/24 00:42 00:49 01:50 Glucose 239 H POC Glucose 228 H 184 H 03/10/24 03/10/24 03/10/24 02:44 03:43 04:29 Glucose 148 H POC Glucose 148 H 133 H 03/10/24 03/10/24 03/10/24 08:01 08:02 11:57 Glucose POC Glucose 325 H* 289 H 225 H OUTPATIENT ANTIDIABETIC REGIMEN: * NovoLog TIDM (pre-meal BSG <250 --> 14 units, pre-meal BSG >250--> 18 units, hold if eating less than 25% of meal) * Lantus 16 units SQ BID * HbA1c 9.1% (01/12/24) ASSESSMENT: 03/10: * BSGs elevated the past 12h. Insulin drip was initiated and discontinued yesterday afternoon and then restarted last night (stopped ~ 0400 this AM). Received 20 units of basal yesterday and an additional 10 units so far this AM. * Continues on hydrocortisone 50mg IV q8h as well as IV antibiotics. NPO. * Continue Novolog q4 while NPO until BSGs consistently less than 200mg/dL. Plan for HS Lantus scale depending on BSG. Pt has historically required ~ 30 units of basal daily, however this is currently confounded by NPO status and IV steroids. 03/09: * Sole is a 73 YOF admitted with pneumonia/sepsis and a history of type 2 diabetes mellitus with hyperglycemia upon admission. Pharmacy has been consulted to assist with glycemic management. * Upon admission BSG 518, AG 16, CO2 23, lactic acid 5.7. Decision was made to begin an insulin infusion to correct hyperglycemia. BSGs trending down into goal range at this time and D51/2NS + 40KCl added to regimen. Plan to maintain insulin drip at this time due to ICU status and high risk of respiratory failure as well as beginning on stress dose IV steroids. PLAN FOR INPATIENT GLYCEMIC CONTROL: * Hold outpatient oral diabetes medications * Basal insulin * Lantus 10 units X 1 this AM + HS scale (10-15 units depending on BSG) * Bolus insulin * NovoLog per scale ACHS or Q4hrs while NPO * Goal Range: Low 110 mg/dL - High 140 mg/dL * Correction Factor: 20 mg/dL/unit * Nutritional / Prandial insulin per carb ratio of 1 unit per 9 grams CHO consumed
[2024-03-10] MEDS: ENOXAPARIN INJ 40 MG/0.4 ML SYR SQ SCH (18:39)
[2024-03-10] MEDS: LANTUS PER UNIT CHARGE SC SCH (20:45)
[2024-03-10] MEDS: PANTOprazole 40 MG/10 ML SYR IV SCH (20:46)
[2024-03-11 04:51] LABS: Hematocrit (blood only) 32.3 % (37.0-47.0); Hemoglobin 10.5 g/dl (12.0-16.0); Mean Corpuscular Hgb Conc 32.5 g/dL (32.0-36.0); Mean Corpuscular Volume 89.2 fL (80.0-100.0); Mean Platelet Volume 10.3 fL (9.4-12.4); Platelet Count 127 K/uL (130-400); RDW Coefficient of Variation 13.9 % (11.5-14.5); RDW Standard Deviation 45.8 fL (36.4-46.3); Red Blood Count 3.62 M/uL (4.20-5.40); White Blood Count 10.43 K/ul (4.8-10.8)
[2024-03-11 05:03] LABS: Albumin Level 3.1 gm/dl (3.4-5.0); Bilirubin Direct 0.1 mg/dl (0-0.2); Bilirubin,Total 0.4 mg/dl (0.2-1.0); Total Protein 5.9 gm/dl (6.0-8.3)
[2024-03-11 05:11] LABS: Basophils # (auto) 0.03 K/uL (0.00-0.20); Basophils % (auto) 0.3 %; Immature Granulocytes # (auto) 0.04 K/uL (0.01-0.20); Immature Granulocytes % (auto) 0.4 %; Lymphocytes # (auto) 0.54 K/uL (1.20-3.40); Lymphocytes % (auto) 5.2 %; Monocytes # (auto) 0.43 K/uL (0.11-0.59); Monocytes % (auto) 4.1 %; Neutrophils # (auto) 9.39 K/uL (1.40-6.50); Polychromasia 1+; Toxic Vacuolation 1+
[2024-03-11] MEDS: PLASMA-LYTE A 1,000 ML IV SCH (06:05)
[2024-03-11 07:01] LABS: Calcium 9.1 mg/dl (8.6-10.3); Creatinine Clr Calc Pharmacy 58.5 ml/min; Magnesium 1.7 mg/dl (1.7-2.4); Phosphorus 2.3 mg/dl (2.5-4.9); Potassium 3.6 mmol/L (3.5-5.1)
[2024-03-11] MEDS ORDERED: DAPTOmycin 250 MG in SYRINGE 0 ML IV SCH (10:00)
[2024-03-11] MEDS: LANTUS PER UNIT CHARGE SC SCH (10:36)
--- NOTE | 2024-03-11 11:02 | Hospitalist Progress Note ---
Date of Service March 11, 2024 Assessment & Plan (1) Sepsis: Plan: Patient is a 73-yo female with PMH of CKD, DM 2, gastroparesis, vitamin D deficiency, relative adrenal insufficiency, cervical spine fracture, asthma, GERD, depression/anxiety, choledocholithiasis with bile leak s/p cholecystectomy with biliary stents in place, and recent Takotsubo cardiomyopathy who presented with altered mental status, found to have sepsis, UTI, possible pneumonia, and hyperglycemia with acute kidney injury and acute respiratory failure with hypoxemia and acute respiratory distress Remains with severe acute encephalopathy-mostly obtunded. Also remains tachycardic, tachypneic, but now on 4 L facemask for oxygen and off BiPAP. Blood pressures have improved with IV fluids and stress dose steroids With significant leukocytosis of 20, elevated lactate, and mildly elevated procalcitonin on admission all of which are now improved CXR w/ RLL PNA and with abnormal UA Blood cxs remain NGTD, urine cx now with 2 strains of Pseudomonas which is pansensitive Does have a CBD stent in place but T. bili/AST/ALT normal, alkaline phosphatase elevated but much lower than previous; abdomen nontender and soft making GI source less likely Started on cefepime and daptomycin upon admission-MRSA nasal swab negative, discontinued daptomycin Based on HERMINIO, pharmacy recommends changing cefepime to Zosyn Continue stress dose steroids with IV hydrocortisone 50 Mg IV but wean to every 12 hours Continue to follow blood cultures Follow CBC, CMP, magnesium APAP as needed for fever (2) Encephalopathy: Plan: Secondary to sepsis, relative adrenal insufficiency, hypoxemia, DKA, but given fevers and encephalopathy, could consider meningoencephalitis or seizures, neurological focal issue-defer to concrete mixer operator-given previous similar presentations of encephalopathy as per history--> hold off on LP or brain MRI or EEG at this time CT head negative for acute Continue to treat sepsis and adrenal insufficiency and DKA Continues on n.p.o. status as she is not mentating enough to tolerate a diet- Home p.o. medications on hold If persists, could consider brain MRI with contrast to look for stroke or infection (3) UTI (urinary tract infection): Plan: Plan as noted above (4) DKA (diabetic ketoacidoses): Plan: BG 518 on admission, with pH 7.28, serum bicarbonate 21 with anion gap 16. Also with lactic acidosis contributing last A1c 10/19/24: 9.1% on Insulin therapy and Metformin outpatient Was on insulin drip and now weaned off to basal and bolus insulin, glucose much better controlled Pharmacy glycemic consult is managing Keep electrolytes replete, follow BMP, magnesium (5) LUTHER (acute kidney injury): Plan: Creatine elevated on admission at 1.72, baseline ~0.8-likely prerenal and ATN secondary to DKA, sepsis s/p 2L NSS in ER and continues on IV fluids here while n.p.o. Creatinine now improved down to 0.75 Follow BMP Avoid nephrotoxins and renally dose medications when needed Continue IV fluids while n.p.o. (6) Pneumonia: Plan: CXR + for RLL infiltrate. Respiratory viral biofire panel is negative Following blood cultures, continuing supplemental oxygen as needed-weaned to 4 L oxy mask Follow chest imaging to resolution (7) Adrenal insufficiency: Plan: Diagnosed on last hospital admission (01/31/24-02/12/24) based on response to IV hydrocortisone with refractory hypotension On hydrocortisone outpatient - 20mg in AM and 10mg PM Giving stress dose steroids with IV steroids here and weaned down to 50 mg IV every 12 hours (8) Demand ischemia: Plan: Troponin mildly elevated at 28/39/40, ECG here with sinus tachycardia but no ischemic changes. Difficult to say clinically if having angina as she is encephalopathic With a recent history of Takotsubo cardiomyopathy last admission Plan to repeat echocardiogram this admission to reassess ejection fraction (9) Nonischemic cardiomyopathy: Plan: As noted above, plan to repeat echocardiogram once more stabilized Is not on heart failure medication on home medication list-it appears she was not placed on any guideline directed medical therapy on discharge from last admission due to ongoing issues with hypotension Follow and add guideline directed medical therapy as able to in the future Plan CAD-presumed based on severe calcifications of the coronary arteries seen on CT scan-holding home aspirin, statin Depression/anxiety-holding home bupropion and venlafaxine, BuSpar while n.p.o. with encephalopathy Neuropathy-holding home gabapentin GERD-holding home p.o. pantoprazole-continue IV PPI once daily while n.p.o. DVT prophylaxis-Lovenox SQ, SCDs Disposition-continued stay but can downgrade to PCU. Prognosis guarded. Appreciate palliative medicine consultation-her mother is her decision-maker and knows that the patient would not want artificial feeds and would like to see how she does over the next 1 to 2 days before making decisions about pursuing comfort care if unable to eat and and if encephalopathy not improving Admission and Anticipated Discharge Date Admission Date: March 09, 2024 Subjective Patient remains obtunded. I lifted her eyelids for her and then she kept her eyes open and did look at me when I was speaking. She would not follow most commands but then did wiggle her right toes when I asked her to wiggle her toes left and then right. Remains tachycardic and tachypneic, sinus tachycardia I discussed her care with concrete mixer operator and palliative medicine Physical Exam Constitutional: + ill appearing Respiratory: + tachypneic; no cough Auscultation: + crackles (Right base); no rhonchi and no wheezes Cardiovascular: Rate/Rhythm: regular rhythm and + tachycardic Heart Sounds: no murmur Extremities: no edema Gastrointestinal (Abdomen): normal bowel sounds, soft, nontender, no hepatosplenomegaly Neurologic: + obtunded; + not awake All extremities seem to be rigid, does not follow any commands, pupils equally round and reactive to light, she does track me somewhat to my voice with her eyes Results & Data Results & Data Vital Signs (Past 12 Hours) Vital Signs Temp Pulse Resp BP Pulse Ox O2 Del Method O2 Flow Rate 03/11/24 08:36 Oxymask 4 03/11/24 08:00 37.2 C 98 H 29 H 95 Oxymask 4 03/11/24 08:00 141/88 H 03/11/24 08:00 141/88 H 03/11/24 08:00 141/88 H 03/11/24 07:03 37.1 C 97 H 28 H 97 03/11/24 07:00 136/85 03/11/24 07:00 136/85 03/11/24 06:00 37.0 C 100 H 27 H 94 03/11/24 06:00 154/87 H 03/11/24 06:00 154/87 H 03/11/24 05:03 36.9 C 96 H 26 H 93 03/11/24 05:00 134/81 03/11/24 04:51 36.9 C 94 H 27 H 93 03/11/24 04:09 37.1 C 94 H 25 H 93 03/11/24 03:27 37.0 C 88 24 92 03/11/24 03:00 149/89 H 03/11/24 03:00 149/89 H 03/11/24 02:39 37.1 C 93 H 23 92 03/11/24 02:00 146/78 H 03/11/24 02:00 37.1 C 91 H 24 90 03/11/24 01:21 37.1 C 93 H 23 94 03/11/24 01:00 128/81 03/11/24 00:57 37.1 C 92 H 25 H 93 03/11/24 00:00 37.1 C 92 H 22 89 L 03/11/24 00:00 143/74 H 03/11/24 00:00 143/74 H 03/11/24 00:00 143/74 H 03/11/24 00:00 96 H 03/10/24 23:09 37.2 C 95 H 26 H 90 Laboratory Results CBC, CMP, magnesium, phosphorus, blood cultures, urine culture reviewed PG Care Time/CCT Total # of Minutes Spent Total Time Spent with Patient: Total time spent is greater than 50% in coordination of care (as documented) at patient's floor/unit and/or counseling patient: Coding Level of Care Code 21030 SUB INP/OBS CARE 3/50MIN Diagnoses Sepsis A41.9 Sepsis acute organ dysfunction status: unspecified Sepsis type: sepsis due to unspecified organism Encephalopathy G93.40 UTI (urinary tract infection) N39.0 DKA (diabetic ketoacidoses) E13.10 LUTHER (acute kidney injury) N17.9 Pneumonia J18.9 Adrenal insufficiency E27.40 Demand ischemia I24.89 Nonischemic cardiomyopathy I42.8 (1) Sepsis Sepsis acute organ dysfunction status: unspecified Sepsis type: sepsis due to unspecified organism Qualified Code(s): A41.9 - Sepsis, unspecified organism
--- NOTE | 2024-03-11 11:07 | Critical Care Progress Note ---
Date of Service March 11, 2024 Assessment & Plan (1) Acute UTI: (2) Acute hyperglycemia: (3) Tachypnea: (4) Adrenal insufficiency: Plan Impression: 73-year-old female from care facility with Pseudomonas/UTI admitted with sepsis, encephalopathy, and lactic acidosis. 24-hour events: Patient's been hemodynamically stable with no need for vasopressor agents. She is been stable from a respiratory standpoint. Urine output is improving and clearing. Fever curve improved Recommendations: 1. Neurologic: Encephalopathy: Unclear baseline although review of the patient's prior admissions indicate this may not be far off from her baseline. Suspect this may be related to metabolic encephalopathy and should clear over time although it is unclear what kind of a baseline the patient had. Palliative care has been engaged to try and better define goals of therapy for this institutionalized patient. 2. Cardiovascular: Severe sepsis with septic shock. Patient presented initially with lactic acidosis which has resolved. Hemodynamically stable 3. Pulmonary: Patient demonstrated compensatory respiratory alkalosis and associated with her metabolic acidosis. Stable oxygenation. 4. Renal: Patient presented with renal insufficiency which has improved. Acid- base status currently reassuring and electrolytes are appropriate. Volume status adequate. 5. GI: Prior history of cholecystectomy with biliary stent in place. She has a small amount of pneumobilia but exam reassuring and LFTs unremarkable without evidence of ascending cholangitis. Patient was evaluated by GI during her prior admission a few weeks ago and biliary source was felt to be unlikely. No indication for additional imaging in the absence of clinical symptoms currently. Will need to follow-up with GI in the outpatient setting for exchange of the stent. 6. Endocrine: Patient with a history of relative adrenal insufficiency. Okay to discontinue hydrocortisone. Continue insulin per pharmacy. 7. Heme-onc: Mild anemia: Leukocytosis improved. No indication for acute blood loss or transfusion currently. 8. ID: White blood cell count has decreased from 20,000 down to 10,000. Urine cultures growing Pseudomonas pansensitive. Given HERMINIO values, will change from cefepime to Zosyn. Would complete 7-day course of antimicrobial therapy The patient's critical care issues have resolved. Her overall prognosis is guarded. At this point, I think she can transfer out of the intensive care unit. Critical care services will sign off. Feel free to contact us with questions or concerns Admission and Anticipated Discharge Date Admission Date: March 09, 2024 Subjective Patient seen and examined. EMR reviewed. Discussed with bedside critical care nurse and on multidisciplinary rounds. Patient is clinically about the same. She been hemodynamically stable and stable from respiratory standpoint but continues to exhibit altered mental status. Her fever curve is improved. Review of Systems Review of Systems: Unobtainable due to reduced consciousness Physical Exam Constitutional: + ill appearing and + lethargic Neck: trachea midline, no thyromegaly Respiratory: + labored breathing and + tachypneic; no cough Auscultation: no crackles, no rhonchi and no wheezes Cardiovascular: Rate/Rhythm: + tachycardic Heart Sounds: normal S1 and normal S2; no murmur Extremities: no edema Gastrointestinal (Abdomen): normal bowel sounds, soft, nontender, no hepatosplenomegaly Musculoskeletal: Extremities: extremities normal to inspection Skin: no rashes, warm and dry Lymphatic: no cervical lymphadenopathy Results & Data Results & Data Vital Signs (Past 12 Hours) Vital Signs Temp Pulse Resp BP Pulse Ox O2 Del Method O2 Flow Rate 03/11/24 08:36 Oxymask 4 03/11/24 08:00 37.2 C 98 H 29 H 95 Oxymask 4 03/11/24 08:00 141/88 H 03/11/24 08:00 141/88 H 03/11/24 08:00 141/88 H 03/11/24 07:03 37.1 C 97 H 28 H 97 03/11/24 07:00 136/85 03/11/24 07:00 136/85 03/11/24 06:00 37.0 C 100 H 27 H 94 03/11/24 06:00 154/87 H 03/11/24 06:00 154/87 H 03/11/24 05:03 36.9 C 96 H 26 H 93 03/11/24 05:00 134/81 03/11/24 04:51 36.9 C 94 H 27 H 93 03/11/24 04:09 37.1 C 94 H 25 H 93 03/11/24 03:27 37.0 C 88 24 92 03/11/24 03:00 149/89 H 03/11/24 03:00 149/89 H 03/11/24 02:39 37.1 C 93 H 23 92 03/11/24 02:00 146/78 H 03/11/24 02:00 37.1 C 91 H 24 90 03/11/24 01:21 37.1 C 93 H 23 94 03/11/24 01:00 128/81 03/11/24 00:57 37.1 C 92 H 25 H 93 03/11/24 00:00 37.1 C 92 H 22 89 L 03/11/24 00:00 143/74 H 03/11/24 00:00 143/74 H 03/11/24 00:00 143/74 H 03/11/24 00:00 96 H 03/10/24 23:09 37.2 C 95 H 26 H 90 Critical Care Results & Data Vital Signs (Past 12 Hours) Vital Signs Temp Pulse Resp BP Pulse Ox O2 Del Method O2 Flow Rate 03/11/24 08:36 Oxymask 4 03/11/24 08:00 37.2 C 98 H 29 H 95 Oxymask 4 03/11/24 08:00 141/88 H 03/11/24 08:00 141/88 H 03/11/24 08:00 141/88 H 03/11/24 07:03 37.1 C 97 H 28 H 97 03/11/24 07:00 136/85 03/11/24 07:00 136/85 03/11/24 06:00 37.0 C 100 H 27 H 94 03/11/24 06:00 154/87 H 03/11/24 06:00 154/87 H 03/11/24 05:03 36.9 C 96 H 26 H 93 03/11/24 05:00 134/81 03/11/24 04:51 36.9 C 94 H 27 H 93 03/11/24 04:09 37.1 C 94 H 25 H 93 03/11/24 03:27 37.0 C 88 24 92 03/11/24 03:00 149/89 H 03/11/24 03:00 149/89 H 03/11/24 02:39 37.1 C 93 H 23 92 03/11/24 02:00 146/78 H 03/11/24 02:00 37.1 C 91 H 24 90 03/11/24 01:21 37.1 C 93 H 23 94 03/11/24 01:00 128/81 03/11/24 00:57 37.1 C 92 H 25 H 93 03/11/24 00:00 37.1 C 92 H 22 89 L 03/11/24 00:00 143/74 H 03/11/24 00:00 143/74 H 03/11/24 00:00 143/74 H 03/11/24 00:00 96 H 03/10/24 23:09 37.2 C 95 H 26 H 90 Lab & Micro Results (Past 24 Hours) RBC 3.62 M/uL (4.20-5.40) L 03/11/24 WBC 10.43 K/ul (4.8-10.8) 03/11/24 Hgb 10.5 g/dl (12.0-16.0) L 03/11/24 Hct 32.3 % (37.0-47.0) L 03/11/24 MCV 89.2 fL (80.0-100.0) 03/11/24 MCH 29.0 pg (25.0-34.0) 03/11/24 MCHC 32.5 g/dL (32.0-36.0) 03/11/24 RDW Standard Deviation 45.8 fL (36.4-46.3) 03/11/24 RDW Coefficient of Variation 13.9 % (11.5-14.5) 03/11/24 Plt Count 127 K/uL (130-400) L 03/11/24 MPV 10.3 fL (9.4-12.4) 03/11/24 Neutrophils (%) (Auto) 90.0 % 03/11/24 Lymphocytes (%) (Auto) 5.2 % 03/11/24 Monocytes # (Auto) 0.43 K/uL (0.11-0.59) 03/11/24 Eosinophils # (Auto) 0.00 K/uL (0.00-0.50) 03/11/24 Immature Granulocyte % (Auto) 0.4 % 03/11/24 Neutrophils # (Auto) 9.39 K/uL (1.40-6.50) H 03/11/24 Lymphocytes # (Auto) 0.54 K/uL (1.20-3.40) L 03/11/24 Monocytes # (Auto) 0.43 K/uL (0.11-0.59) 03/11/24 Eosinophils # (Auto) 0.00 K/uL (0.00-0.50) 03/11/24 Basophils # (Auto) 0.03 K/uL (0.00-0.20) 03/11/24 Immature Granulocyte # (Auto) 0.04 K/uL (0.01-0.20) 4 Polychromasia 1+ 03/11/24 Toxic Vacuolation 1+ 03/11/24 Na 145 mmol/L (136-145) 03/11/24 K 3.6 mmol/L (3.5-5.1) 03/11/24 Cl 110 mmol/L (98-107) H 03/11/24 CO2 26 mmol/L (21-32) 03/11/24 Anion Gap 9 (3-11) 03/11/24 BUN 27 mg/dl (6-23) H 03/11/24 Creatinine 0.75 mg/dl (0.6-1.2) 03/11/24 BUN/Creatinine Ratio 36.0 (10-20) H 03/11/24 Glu 162 mg/dl (70-99(Fasting)) H 03/11/24 Ca 9.1 mg/dl (8.6-10.3) 03/11/24 Phosphorus Level 2.3 mg/dl (2.5-4.9) L 03/11/24 Total Bilirubin 0.4 mg/dl (0.2-1.0) 03/11/24 Direct Bilirubin 0.1 mg/dl (0-0.2) 03/11/24 AST 14 U/L (13-39) 03/11/24 ALT 11 U/L (7-52) 03/11/24 Alkaline Phosphatase 133 U/L (34-104) H 03/11/24 TP 5.9 gm/dl (6.0-8.3) L 03/11/24 Albumin 3.1 gm/dl (3.4-5.0) L 03/11/24 Mg 1.7 mg/dl (1.7-2.4) 03/11/24 04:32 Calcium Level 9.1 mg/dl (8.6-10.3) 03/11/24 04:32 Microbiology 03/09/24 09:49 Aerobic Blood Culture - Preliminary Blood No growth in Aerobic bottle after 48 hours. Anaerobic Blood Culture - Preliminary No growth in Anaerobic bottle after 48 hours. 03/09/24 09:20 Urine Culture - Final Urine,Straight Cath Pseudomonas aeruginosa Pseudomonas aeruginosa#2 03/09/24 09:10 Aerobic Blood Culture - Preliminary Blood No growth in Aerobic bottle after 48 hours. Anaerobic Blood Culture - Preliminary No growth in Anaerobic bottle after 48 hours. I & O Totals 24 Hours 03/10/24 03/11/24 03/12/24 06:59 06:59 06:59 Intake Total 4929.384 / 4929.384 2440.833 / 2440.833 Output Total 975 / 975 1450 / 1450 Balance 3954.384 / 3954.384 990.833 / 990.833 Cumulative 03/09/24 08:57 thru 03/11/24 06:05 Intake Total 7370.217 Output Total 2425 Balance 4945.217 RT Ventilator Mngmt (Last Documented) Ventilator Ordered Settings Respiratory Rate 29 03/11/24 08:00 Fraction of Inspired Oxygen 40 03/10/24 08:00 Ventilator - PT Measurements Respiratory Rate 29 Coding Level of Care Code 38634 SUB INP/OBS CARE 3/50MIN Diagnoses Acute UTI N39.0 Acute hyperglycemia R73.9 Tachypnea R06.82 Adrenal insufficiency E27.40
[2024-03-11] MEDS: 4.5GM X1 IV ONE (11:24)
--- NOTE | 2024-03-11 17:48 | Palliative Care Consultation ---
Date of Consultation March 11, 2024 Assessment & Plan (1) Palliative care by specialist: (2) Advance care planning: (3) Counseling regarding goals of care: Plan Summary of goals of care discussion: Pt does require a proxy for medical decisions. Patient has exhibited current lack of decisional capacity based on the inability to convey understanding of personal PMHx, current medical condition, treatment options nor the risks / benefits of those options, and lack of ability to make decisions based on such knowledge. Per pt's mother, patient does not have written documentation of wishes concerning her chosen proxy for medical decisions. Per PA [id number], in absence of written documentation of patient wishes, pt's proxy for medical decisions would be her mothe Prema Gooden ([phone]). met with pt's mother Prema Gooden at bedside. Prema shared that the patient had been completely independent with all iADLs and ADLs until September of this year. She shared that the pt had lived with her and was "pretty healthy" prior to requiring a cholecystectomy in February 2023. She shared that the pt suffered multiple complications from that surgery requiring multiple readmissions, but never seemed to get any better. In September of this year, pt suffered cervical spinal fractures 2/2 GLF. After neurosurgical repair of fractures she was discharged to [facility], but never regained her prior level of independence or mobility. During the past several months, Prema shared that pt has not had the quality of life she would have wanted and they had many discussions about "aggressive treatments". Prema shared that the patient has made it clear to her that she would not want to be dependent on machines nor artificial feeding for life. Prema reinforced that patient is to be DNR/DNI and confirmed that she should have no artificial feeding via tubes. Briefly introduced hospice as a consideration if patient continues to decline medically to the point of requiring interventions that are not fitting with her values and goals. Discussed pleasure feeds in conjunction with comfort driven care in event that future life prolonging treatments are incompatible with pt's expressed values. Prema expressed concern that her daughter may never be well enough to live independently again. Validated her concerns. At this time pt is to be DNR/DNI with NO artificial feeding. Prema would like to give pt a day or two for improvement and then revisit goals. She shared that if pt is determined to not be able to eat safely, she would want her "kept comfortable for what time she is given". History of Present Illness Reason for Consultation: goals of care Requesting Physician: Lu Herrera MD Attending Physician: Lu Herrera MD History of Present Illness 73-year-old female with past medical history of CKD, type 2 diabetes, gastroparesis, vitamin D deficiency, adrenal insufficiency who presented to the emergency department on 03/09/24 due to a decline in mental state over 24 hours. She has had multiple previous admissions for similar symptoms. She was admitted to ICU for medical management of metabolic encephalopathy, pna, and urosepsis, and acidosis. Allergies Allergy/AdvReac Type Severity Reaction Status Date / Time baclofen AdvReac Intermediate Hallucinati Verified 12/21/23 14:08 ng cyclobenzaprine AdvReac Intermediate Hallucinati Verified 12/21/23 14:08 ng Home Medications Medication Instructions Recorded Confirmed Type cholecalciferol (vitamin D3) 50 2,000 units PO DAILY 11/08/18 03/10/24 History mcg (2,000 unit) capsule cyanocobalamin (vitamin B-12) 1,000 mcg PO DAILY 11/08/18 03/10/24 History 1,000 mcg tablet aspirin 81 mg tablet,delayed 81 mg PO DAILY #90 tabs 06/23/19 03/10/24 Rx release venlafaxine 150 mg 150 mg PO BID 01/18/22 03/10/24 History capsule,extended release 24 hr metformin 1,000 mg tablet 1,000 mg PO BID #180 tabs 10/24/22 03/10/24 Rx rosuvastatin 20 mg tablet 20 mg PO QAM #90 tabs 10/24/22 03/10/24 Rx bupropion HCl 150 mg tablet,12 hr 300 mg PO DAILY 02/23/23 03/10/24 History sustained-release amoxicillin 500 mg capsule 2,000 mg PO DIRECTED PRN 1 HR 03/09/23 03/10/24 History PRIOR TO DENTAL PROCEDURES pen needle, diabetic 32 gauge x #400 ea 03/15/23 12/21/23 Rx 5/32" (BD Ultra-Fine Marleny Pen Needle) blood sugar diagnostic (OneTouch #600 ea 05/10/23 12/21/23 Rx Ultra Test strips) insulin lispro 100 unit/mL See Rx Instructions .Route .COMPLEX 05/09/24 12/16/24 History subcutaneous pen (Humalog KwikPen (U-100) Insulin) blood-glucose meter #1 ea 08/10/23 12/21/23 Rx albuterol sulfate 90 mcg/actuation 2 puff inhalation Q4H PRN 10/10/23 03/10/24 History aerosol inhaler Shortness Of Breath Or Wheezing gabapentin 300 mg capsule 300 mg PO TID 12/21/23 03/10/24 History hydrocortisone 10 mg tablet 10 mg PO QPM 1 month #30 tabs 02/12/24 03/10/24 Rx (Cortef) magnesium oxide 400 mg (241.3 mg 400 mg PO BID 1 month #60 tabs 02/12/24 03/10/24 Rx magnesium) tablet acetaminophen 500 mg tablet 1,000 mg PO Q8H PRN pain 03/10/24 03/10/24 History bisacodyl 10 mg rectal suppository 10 mg MO DAILY PRN Constipation 03/10/24 03/10/24 History (Dulcolax (bisacodyl)) buspirone 30 mg tablet 30 mg PO BID 03/10/24 03/10/24 History hydrocortisone 20 mg tablet 20 mg PO QAM 03/10/24 03/10/24 History insulin glargine 100 unit/mL (3 10 unit subcut BID 03/10/24 03/10/24 History mL) subcutaneous pen (Lantus Solostar U-100 Insulin) magnesium hydroxide 400 mg/5 mL See Rx Instructions .Route .COMPLEX 03/10/24 03/10/24 History oral suspension (Milk of Magnesia) pantoprazole 40 mg tablet,delayed 40 mg PO DAILY 03/10/24 03/10/24 History release sodium phosphates 19 gram-7 118 ml MO DAILY PRN Constipation 03/10/24 03/10/24 History gram/118 mL enema (Fleet Enema) Patient History Medical History Anterolisthesis of lumbar spine Elevated troponin Fall C6 cervical fracture Acute anterior epistaxis Perianal abscess Vitiligo Venous insufficiency (chronic) (peripheral) NSTEMI (non-ST elevated myocardial infarction) Mixed conductive and sensorineural hearing loss of both ears Frequent falls Cardiomyopathy Dyslipidemia Hypertension Hiatal hernia Small GERD (gastroesophageal reflux disease) Depression Surgical History Hx of cardiac cath Mar 2018. Normal coronary arteries. History of total knee replacement RT TKA APPROX 15 YEARS AGO L TKA 01/23/2018 Family History Mother Hypertension Cancer Melanoma Father Breast cancer Cancer Melanoma Family/Other Breast cancer Unknown Osteoarthritis Denies family history of Ovarian cancer Prostate cancer Heart disease Colorectal cancer Lung disease Stroke Asthma Social History Smoking Status: Never smoker Second Hand Exposure: No; Do You Dip or Chew Tobacco: No; Hx Alcohol Use: No Hx Substance Use: No Preferred Language: Latvian Communication Ability: Impaired Communication Ability Comment: D/t facial edema from fall pt cannot see well enough to sign documents now Visual Impairment: No Limitations Hearing Ability: Normal Quarter Lining Smoother Required: No Beliefs That Will Affect Care: None marital status: Current Living Situation: Snf Current Living Situation Comment: [facility] current occupational status: disabled Other Information That Helps Us Care for You: No Feels Safe at Home: Yes Childhood Exposure to Second-Hand Smoke: No Diet: regular caffeine: Yes Dental Care, Regularly: Yes Physical Activity Frequency: 3-4 Times per Week Physical Activity Frequency Comment: walk Seatbelt Use: always Sunscreen Use: No (not in the sun) Do you think of yourself as: straight/heterosexual Assistive Devices: Glasses Review of Systems Review of Systems: Unobtainable due to cognitive status Physical Exam Constitutional: + ill appearing and + lethargic Respiratory: + labored breathing and + tachypneic; no cough Auscultation: lungs clear to auscultation bilaterally and + diminished lung sounds Cardiovascular: Rate/Rhythm: + tachycardic Heart Sounds: normal S1 and normal S2; no murmur Extremities: no edema Gastrointestinal (Abdomen): normal bowel sounds, soft, nontender, no hepatosplenomegaly Musculoskeletal: Extremities: extremities normal to inspection Skin: no rashes, warm and dry Lymphatic: no cervical lymphadenopathy Results & Data Vital Signs (Past 12 Hours) Vital Signs Temp Pulse Resp BP Pulse Ox O2 Del Method O2 Flow Rate 03/11/24 16:09 37.4 C 106 H 30 H 93 Oxymask 3 03/11/24 16:00 148/93 H 03/11/24 15:57 37.7 C H 107 H 29 H 94 03/11/24 14:06 34.4 C L 103 H 28 H 95 03/11/24 13:00 37.8 C H 101 H 28 H 93 Oxymask 4 03/11/24 12:00 36.7 C 107 H 29 H 95 03/11/24 12:00 146/90 H 03/11/24 12:00 146/90 H 03/11/24 11:03 38.0 C H 107 H 31 H 93 03/11/24 11:00 145/91 H 03/11/24 11:00 145/91 H 03/11/24 11:00 145/91 H 03/11/24 11:00 145/91 H 03/11/24 10:42 38.0 C H 111 H 32 H 94 03/11/24 10:06 37.7 C H 108 H 33 H 95 03/11/24 09:12 37.5 C 107 H 32 H 95 03/11/24 08:36 Oxymask 4 03/11/24 08:00 37.2 C 98 H 29 H 95 Oxymask 4 03/11/24 08:00 141/88 H 03/11/24 08:00 141/88 H 03/11/24 08:00 141/88 H 03/11/24 07:03 37.1 C 97 H 28 H 97 03/11/24 07:00 136/85 03/11/24 07:00 136/85 03/11/24 06:00 37.0 C 100 H 27 H 94 03/11/24 06:00 154/87 H 03/11/24 06:00 154/87 H Laboratory Results Abnormal lab results 03/10/24 03/10/24 03/11/24 Range/Units 20:37 23:33 04:14 RBC (4.20-5.40) M/uL Hgb (12.0-16.0) g/dl Hct (37.0-47.0) % Plt Count (130-400) K/uL Neut # (Auto) (1.40-6.50) K/uL Lymph # (Auto) (1.20-3.40) K/uL Chloride (98-107) mmol/L BUN (6-23) mg/dl BUN/Creatinine Ratio (10-20) Glucose (70-99(Fasting)) mg/dl POC Glucose 153 H 155 H 147 H (70-99) mg/dl Phosphorus (2.5-4.9) mg/dl Alkaline Phosphatase (34-104) U/L Total Protein (6.0-8.3) gm/dl Albumin (3.4-5.0) gm/dl 03/11/24 03/11/24 03/11/24 Range/Units 04:32 08:10 12:07 RBC 3.62 L (4.20-5.40) M/uL Hgb 10.5 L (12.0-16.0) g/dl Hct 32.3 L (37.0-47.0) % Plt Count 127 L (130-400) K/uL Neut # (Auto) 9.39 H (1.40-6.50) K/uL Lymph # (Auto) 0.54 L (1.20-3.40) K/uL Chloride 110 H (98-107) mmol/L BUN 27 H (6-23) mg/dl BUN/Creatinine Ratio 36.0 H (10-20) Glucose 162 H (70-99(Fasting)) mg/dl POC Glucose 168 H 197 H (70-99) mg/dl Phosphorus 2.3 L (2.5-4.9) mg/dl Alkaline Phosphatase 133 H (34-104) U/L Total Protein 5.9 L (6.0-8.3) gm/dl Albumin 3.1 L (3.4-5.0) gm/dl 03/11/24 Range/Units 17:24 RBC (4.20-5.40) M/uL Hgb (12.0-16.0) g/dl Hct (37.0-47.0) % Plt Count (130-400) K/uL Neut # (Auto) (1.40-6.50) K/uL Lymph # (Auto) (1.20-3.40) K/uL Chloride (98-107) mmol/L BUN (6-23) mg/dl BUN/Creatinine Ratio (10-20) Glucose (70-99(Fasting)) mg/dl POC Glucose 107 H (70-99) mg/dl Phosphorus (2.5-4.9) mg/dl Alkaline Phosphatase (34-104) U/L Total Protein (6.0-8.3) gm/dl Albumin (3.4-5.0) gm/dl Diagnostic Findings Chest X-Ray 03/09/24 09:13 XR chest 1V portable CLINICAL HISTORY: Shortness of breath. COMPARISON STUDY: Chest radiograph January 31, 2024. Chest CT February 20, 2021. FINDINGS: Patchy right lower lung opacities have developed since prior exam. Left lung is clear. There is no pneumothorax or pleural effusion. Pulmonary vascularity is normal. Biliary stents are partially imaged. Gaseous distention of visualized portions of the colon is incidentally noted. IMPRESSION: Interval development of patchy right basilar opacities consistent with pneumonia. ACT 112: Negative or not required by law. Electronically signed by: Noel New M.D. 03/09/2024 9:[address] 03/10/24 02:57 EXAM: CT head/brain wo con CLINICAL HISTORY: AMS. TECHNIQUE: Axial non-contrast CT scan of the brain was performed from the skull base to the high parietal region with multiple reformats. One of the following dose reduction techniques were utilized for this exam: Automated exposure control, adjustment of the mA and/or kV according to patient size, use of iterative reconstruction. COMPARISON: CT 02/07/2024 FINDINGS: Brain Parenchyma: Normal attenuation of the cerebral hemispheres, cerebellum, and brainstem. No evidence of acute infarct, hemorrhage, or mass effect. No abnormal areas of hypo- or hyperattenuation. Generalized cortical atrophy. Ventricular System: Age-related prominent ventricular system, cisterns and cortical sulci. Subarachnoid Spaces: Normal sulci and cisterns. No evidence of subarachnoid hemorrhage or extra-axial fluid collections. Cerebellum and Brainstem: Extensive artifacts from the cervical spine fixators and dental findings are obscuring the posterior fossa details. Orbits: Normal appearance of the globes, optic nerves, and extraocular muscles. Sinuses: Clear paranasal sinuses. No evidence of sinusitis or mucosal thickening. Mastoid Air Cells: Clear mastoid air cells. No evidence of mastoiditis. Skull: Normal skull morphology. IMPRESSION: 1. No acute abnormality seen. 2. Age-related involutional changes. 3. Extensive artifact from upper cervical spine fixators and dental fillings are obscuring the posterior fossa details. 4. No significant changes since prior examination. Electronically signed by Lisseth López 03-10-2024 06:12 AM Medications Administered Current Inpatient Medications Dextrose (Dextrose 50% 50 Ml Syringe) 25 - 50 ml IV UD PRN; Protocol PRN Reason: Hypoglycemia Protocol Stop: 04/09/24 00:14 Enoxaparin Sodium (Enoxaparin Inj 40 Mg/0.4 Ml Syr) 40 mg SQ Q24H PETROS Stop: 04/09/24 17:59 Last Admin: 03/10/24 18:39 Dose: 40 mg Glucagon (Glucagon For Inj 1 Mg Vial) 1 mg SQ UD PRN; Protocol PRN Reason: Hypoglycemia Protocol Stop: 04/09/24 00:14 Glucose (Glucose 40% Gel 15 Gm Tube) 15 - 30 gm PO UD PRN; Protocol PRN Reason: Hypoglycemia Protocol Stop: 04/09/24 00:14 Glucose (Glucose 10 Tab/Tube) 4 - 8 tab PO UD PRN; Protocol PRN Reason: Hypoglycemia Protocol Stop: 04/09/24 00:14 Acetaminophen (Ofirmev) 1,000 mg in 100 mls @ 400 mls/hr IV Q8H PRN PRN Reason: Pain or Fever Stop: 03/12/24 19:21 Last Infusion: 03/10/24 08:28 Dose: Infused Pantoprazole Sodium (Protonix) 40 mg in 10 mls @ 5 mls/min IV QPM PETROS Stop: 04/09/24 20:59 Last Admin: 03/10/24 20:46 Dose: 5 mls/min Parenteral Electrolytes (Plasma-Lyte A Ph 7.4) 1,000 mls @ 80 mls/hr IV .[id number] [facility] Stop: 03/12/24 05:59 Last Admin: 03/11/24 06:05 Dose: 80 mls/hr Hydrocortisone Sodium (Succinate 50 mg/ Syringe) 1 mls @ 4 mls/min IV Q12H PETROS Stop: 04/10/24 19:59 Piperacillin Sod/Tazobactam Sod (Zosyn) 4.5 gm in 100 mls @ 25 mls/hr IV Q8H PETROS; Protocol Stop: 03/21/24 16:59 Insulin Aspart (Insulin Aspart Per Unit Charge) 0 units SC Q6 PETROS Stop: 04/09/24 03:59 Insulin Glargine (Lantus Per Unit Charge) 0 units SC HS PETROS; Protocol Stop: 04/09/24 20:59 Last Admin: 03/10/24 20:45 Dose: 10 units Insulin Glargine (Lantus Per Unit Charge) 10 units SC DAILY PETROS Stop: 04/10/24 08:59 Last Admin: 03/11/24 10:36 Dose: 10 units Miscellaneous (Carbohydrates For Hypoglycemia ) 15 - 30 gm PO UD PRN PRN Reason: Hypoglycemia Treatment Stop: 04/09/24 00:14 Miscellaneous Information (Pharmacy Glycemic Mgmt Consult) 1 each N/A UD PRN PRN Reason: Consult Stop: 04/08/24 10:04 PG Care Time/CCT Total # of Minutes Spent Total Time Spent with Patient: Total time spent is greater than 50% in coordination of care (as documented) at patient's floor/unit and/or counseling patient: Advanced Care Planning [id number] Advanced Care Planning 30 [place] [address] IN/OBS CONSULT LVL 4,60M Patient Type New Medical Decision Making Moderate Complexity Diagnoses Palliative care by specialist Z51.5 Advance care planning Z71.89 Counseling regarding goals of care Z71.89 Additional Codes Advanced Care Planning - 69172 Advanced Care Planning 30 Min: 49087 Advanced Care Planning 30 Min ([id number])
[2024-03-11] MEDS: INSULIN ASPART PER UNIT CHARGE SC SCH (18:40)
[2024-03-11] MEDS: 4.5GM EXT INFUSION IV SCH (18:44)
[2024-03-11] MEDS: HYDROCORTISONE SOD 50 MG in SYRINGE 0 ML IV SCH (21:06)
[2024-03-12 07:51] LABS: Hematocrit (blood only) 34.9 % (37.0-47.0); Hemoglobin 11.2 g/dl (12.0-16.0); Mean Corpuscular Hemoglobin 28.5 pg (25.0-34.0); Mean Corpuscular Hgb Conc 32.1 g/dL (32.0-36.0); Mean Corpuscular Volume 88.8 fL (80.0-100.0); Mean Platelet Volume 10.3 fL (9.4-12.4); Platelet Count 165 K/uL (130-400); RDW Coefficient of Variation 13.7 % (11.5-14.5); RDW Standard Deviation 44.9 fL (36.4-46.3); Red Blood Count 3.93 M/uL (4.20-5.40); White Blood Count 14.68 K/ul (4.8-10.8)
[2024-03-12 08:07] LABS: Basophils # (auto) 0.04 K/uL (0.00-0.20); Basophils % (auto) 0.3 %; Eosinophils # (auto) 0.05 K/uL (0.00-0.50); Eosinophils % (auto) 0.3 %; Immature Granulocytes # (auto) 0.05 K/uL (0.01-0.20); Immature Granulocytes % (auto) 0.3 %; Lymphocytes # (auto) 0.76 K/uL (1.20-3.40); Lymphocytes % (auto) 5.2 %; Monocytes # (auto) 0.49 K/uL (0.11-0.59); Monocytes % (auto) 3.3 %; Neutrophils # (auto) 13.29 K/uL (1.40-6.50); Neutrophils % (auto) 90.6 %
[2024-03-12 08:12] LABS: Albumin Globulin Ratio 0.9 (0.9-2); Albumin Level 2.8 gm/dl (3.4-5.0); BUN Creatinine Ratio 31.1 (10-20); Bilirubin,Total 0.5 mg/dl (0.2-1.0); Creatinine Clr Calc Pharmacy 59.3 ml/min; Magnesium 1.6 mg/dl (1.7-2.4); Potassium 2.7 mmol/L (3.5-5.1); Total Protein 5.8 gm/dl (6.0-8.3)
[2024-03-12] MEDS: MAGNESIUM SULFATE / D5W 1 GM/100 ML BAG IV SCH (09:29)
[2024-03-12] MEDS: POTASSIUM CHLORIDE / WTR 10 MEQ/100 ML PLCT IV SCH (09:31)
--- NOTE | 2024-03-12 14:13 | Hospitalist Progress Note ---
Date of Service March 12, 2024 Assessment & Plan (1) Sepsis: Plan: Patient is a 73-yo female with PMH of CKD, DM 2, gastroparesis, vitamin D deficiency, relative adrenal insufficiency, cervical spine fracture, asthma, GERD, depression/anxiety, choledocholithiasis with bile leak s/p cholecystectomy with biliary stents in place, and recent Takotsubo cardiomyopathy who presented with altered mental status, found to have sepsis, UTI, possible pneumonia, and hyperglycemia with LUTHER and acute respiratory failure with hypoxemia and acute respiratory distress Remains with severe acute encephalopathy-mostly obtunded, flaccid extremities except can wiggle toes bilat Tachycardia, tachypnea improved, remains on 4 L facemask O2 Blood pressures have improved with IV fluids and stress dose steroids With significant leukocytosis of 20, elevated lactate, and mildly elevated procalcitonin on admission all of which are now improved CXR w/ RLL PNA and with abnormal UA Blood cxs remain NGTD, urine cx now with 2 strains of Pseudomonas which is pansensitive Does have a CBD stent in place but T. bili/AST/ALT normal, alkaline phosphatase elevated but much lower than previous; abdomen nontender and soft making GI source less likely Started on cefepime and daptomycin upon admission-MRSA nasal swab negative, discontinued daptomycin Based on HERMINIO, pharmacy recommends changing cefepime to Zosyn on 03/11-will complete 7 day course on 03/17/24 Continue stress dose steroids with IV hydrocortisone 50 Mg IV every 12 hours while NPO Continue to follow blood cultures Follow CBC, CMP, magnesium-replace lytes as needed--> today with severe hypokalemia nad hypomagnesemia-gave 60 meq KCl IV and 2 grams IV mag APAP as needed for fever (2) Encephalopathy: Plan: CT head initially negative Initially thought to be 2/2 sepsis, relative adrenal insufficiency, hypoxemia, DKA, but given fevers and encephalopathy, considered meningoencephalitis or seizures, neurological focal issue--> highly suspect acute CVA at this point Check Brain MRI with contrast to assess for CVA Continue to treat sepsis and adrenal insufficiency and DKA Continues on n.p.o. status as she is not mentating enough to tolerate a diet- Home p.o. medications on hold As per d/w mom/POA, pt would NOT want artificial tube feeds (3) UTI (urinary tract infection): Plan: Plan as noted above (4) DKA (diabetic ketoacidoses): Plan: BG 518 on admission, with pH 7.28, serum bicarbonate 21 with anion gap 16. Also with lactic acidosis contributing last A1c 01/12/24: 9.1% on Insulin therapy and Metformin outpatient Was on insulin drip and now weaned off to basal and bolus insulin, glucose much better controlled Pharmacy glycemic consult is managing Keep electrolytes replete, follow BMP, magnesium-replacing today (5) LUTHER (acute kidney injury): Plan: Creatine elevated on admission at 1.72, baseline ~0.8-likely prerenal and ATN secondary to DKA, sepsis s/p 2L NSS in ER and continues on IV fluids here while n.p.o. Creatinine now improved down to 0.75 Follow BMP Avoid nephrotoxins and renally dose medications when needed Continue IV fluids while n.p.o.-change to D51/2 NS at 80mL/hr (6) Pneumonia: Plan: CXR + for RLL infiltrate. Respiratory viral biofire panel is negative Following blood cultures, continuing supplemental oxygen as needed-weaned to 4 L oxy mask Follow chest imaging to resolution (7) Adrenal insufficiency: Plan: Diagnosed on last hospital admission (01/31/24-02/12/24) based on response to IV hydrocortisone with refractory hypotension On hydrocortisone outpatient - 20mg in AM and 10mg PM Giving stress dose steroids with IV steroids here and weaned down to 50 mg IV every 12 hours (8) Demand ischemia: Plan: Troponin mildly elevated at 28/39/40, ECG here with sinus tachycardia but no ischemic changes. Difficult to say clinically if having angina as she is encephalopathic With a recent history of Takotsubo cardiomyopathy last admission Likely plan to repeat echocardiogram this admission to reassess ejection fraction (9) Nonischemic cardiomyopathy: Plan: As noted above, plan to repeat echocardiogram once more stabilized Is not on heart failure medication on home medication list-it appears she was not placed on any guideline directed medical therapy on discharge from last admission due to ongoing issues with hypotension Follow and add guideline directed medical therapy as able to in the future Plan CAD-presumed based on severe calcifications of the coronary arteries seen on CT scan-holding home aspirin, statin Depression/anxiety-holding home bupropion and venlafaxine, BuSpar while n.p.o. with encephalopathy Neuropathy-holding home gabapentin GERD-holding home p.o. pantoprazole-continue IV PPI once daily while n.p.o. DVT prophylaxis-Lovenox SQ, SCDs Disposition-continued stay on PCU. Prognosis very guarded. Appreciate palliative medicine consultation-her mother is her decision-maker and knows that the patient would not want artificial feeds and would like to see how she does over the next 1 to 2 days before making decisions about pursuing comfort care if unable to eat and and if encephalopathy not improving Discussed care with Mom/POA 03/12 and pursuing brain MRI to assess for stroke but told her I have great concerns about her daughter ever recovering function but will see how things go over next day or so and see what MRI shows Admission and Anticipated Discharge Date Admission Date: March 09, 2024 Subjective Pt remains mostly obtunded although today she did keep her eyes open for longer and seemed to be listening to me. She did wiggle her toes bilat on command, but could not move her arms or squeeze my fingers bilat. She did close her eyes on command but then would not reopen them. Less tachypneic today, tele with NSR, ST, PACs, rates 80-100s I had a long discussion with her mother/POA at the bedside about pursuing brain MRI to look for stroke as this seems to be the most likely cause of her current state as she is not really improving at all despite treatment with abx for sepsis. Also discussed that even if there is a CVA, not much to be done about it, but would give us answers and help guide future goals of care. If pt declines clinically, mom is ok with pursuing RESIDENTIAL PROGRAM COORDINATOR Physical Exam Constitutional: + ill appearing Eyes: PERRL, conjunctivae normal, anicteric sclerae ENMT: dry mucus membranes, buccal mucosa Respiratory: + tachypneic (but mild and improved toda y); no cough Auscultation: + crackles (Right base); no rhonchi and no wheezes Cardiovascular: Rate/Rhythm: regular rate and regular rhythm Heart Sounds: no murmur Extremities: no edema Gastrointestinal (Abdomen): normal bowel sounds, soft, nontender, no hepatosplenomegaly Neurologic: + focal motor deficit (flaccid bilat UEs ,does wiggle toes bilat,blinks eyes,grimaces), + confused and + obtunded; + does not move all extremities Speech / Cognition: + expressive aphasia and + abnormal cognition Motor/Sensory: no tremor and no sensory deficit (difficult to assess but does withdraw to painful stimuli of feet) Results & Data Results & Data Vital Signs (Past 12 Hours) Vital Signs Temp Pulse Resp BP BP Pulse Ox O2 Del Method 03/12/24 10:28 36.8 C 104 H 22 159/84 H 92 Oxymask 03/12/24 07:20 36.6 C 106 H 22 145/86 H 92 Oxymask 03/12/24 03:04 36.3 C L 94 H 28 H 142/74 H 95 Oxymask O2 Flow Rate 03/12/24 10:28 2 03/12/24 07:20 4 03/12/24 03:04 Laboratory Results CBC, CMP, magnesium reviewed PG Care Time/CCT Total # of Minutes Spent Total Time Spent with Patient: Total time spent is greater than 50% in coordination of care (as documented) at patient's floor/unit and/or counseling patient: Coding Level of Care Code 79434 SUB INP/OBS CARE 2/35MIN Diagnoses Sepsis A41.9 Sepsis acute organ dysfunction status: unspecified Sepsis type: sepsis due to unspecified organism Encephalopathy G93.40 UTI (urinary tract infection) N39.0 DKA (diabetic ketoacidoses) E13.10 LUTHER (acute kidney injury) N17.9 Pneumonia J18.9 Adrenal insufficiency E27.40 Demand ischemia I24.89 Nonischemic cardiomyopathy I42.8 (1) Sepsis Sepsis acute organ dysfunction status: unspecified Sepsis type: sepsis due to unspecified organism Qualified Code(s): A41.9 - Sepsis, unspecified organism
[2024-03-12] MEDS: D5W AND 1/2NSS 1,000 ML IV SCH (16:30)
[2024-03-12] MEDS: GADOBUTROL 65ML VIAL IV ONE (21:47)
--- NOTE | 2024-03-12 23:18 | Magnetic Resonance Report ---
Exam(s): MRI HEAD W/WO Contrast IV Amt: 6cc gadavist administered EXAM: MR Head Without and With Intravenous Contrast CLINICAL HISTORY: Reason for exam: obtunded,focal weakness,r/o CVA. TECHNIQUE: Magnetic resonance images of the head/brain without and with intravenous contrast in multiple planes. CONTRAST: Patient received 6cc gadavist administered of IV contrast COMPARISON: Prior head CT from January 11, 2024. FINDINGS: Brain: There are tiny acute/subacute ischemic injuries of the right frontal, left thalamus and left occipital lobe without evidence of hemorrhagic transformation. Remote ischemic injuries of the cerebellum. Mild nonspecific white matter changes. The flow voids at the base the brain are intact. No evidence of abnormal enhancement. The dural venous sinuses are patent. Ventricles: Advanced ventriculomegaly. Bones/joints: Remote odontoid fracture with posterior fusion.. No acute fracture. Sinuses: Unremarkable as visualized. No acute sinusitis. Mastoid air cells: There is a small amount of fluid in the mastoid air cells. No mastoid effusion. Orbits: Unremarkable as visualized. IMPRESSION: Findings concerning for tiny acute/subacute ischemic injuries of the right frontal and left occipital lobes in addition to the left thalamus concerning for embolic phenomenon. Recommend CT angiogram of the head and neck for further evaluation. Communications: Verify Receipt Electronically signed by: Ely Mehta MD 03/12/24 23:18 PM
--- NOTE | 2024-03-12 23:40 | Communication Note ---
Date of Service: March 12, 2024 Received findings of stat MRI overnight. Findings concerning for tiny acute/subacute ischemic injuries of the right frontal and left occipital lobes i n addition to the left thalamus concerning for embolic phenomenon. It was recommended a CT angio of the head and neck for further evaluation. Head CTA and neck CTA negative. May consider overread by day team radiology. Will put in a consult for neurology. Will discontinue anticoagulation and started on SCDs for DVT prophylaxis. Added on echo. Further workup by day team.
[2024-03-13] MEDS: OPTIRAY 320 125ml IV ONE (00:35)
--- NOTE | 2024-03-13 01:24 | CT Scan Report ---
EXAM: CT angio neck with con CLINICAL HISTORY: 118 ML OPTIRAY 320, NEURO TECHNIQUE: Contrast enhanced thin slice CT angiography scan of the carotid vessels was performed with intravenous contrast. Angiographic images were processed, 3D MIP images were acquired for interpretation.Contiguous axial images were obtained. Reformatted coronal and sagittal images were also reviewed. If IV contrast material had not been administered, the likelihood of detecting abnormalities relevant to the patients condition would have been substantially decreased. CT scan was performed according to ALARA (as low as reasonable achievable). COMPARISON: None. FINDINGS: Included great vessels of the aortic arch are grossly unremarkable. Common carotid artery, carotid Bulb, internal carotid artery , and origin of the external carotid artery are well opacified. Vertebral arteries are well opacified. Jugular veins are well opacified. Included lung apices are grossly unremarkable. Thyroid gland appears unremarkable. IMPRESSION: 1. No evidence of stenosis or aneurysm. No evidence of dissection. Electronically signed by Rod Coon 03-13-2024 01:24 AM
--- NOTE | 2024-03-13 01:32 | CT Scan Report ---
EXAM: CT angio head w con CLINICAL HISTORY: NEURO , 118 ML OPTIRAY 320, TECHNIQUE: Contrast enhanced thin slice CT angiography scan of the cerebral vessels was performed with intravenous contrast. Angiographic images were processed, 3D MIP images were acquired for interpretation. Contiguous axial images were obtained. Reformatted coronal and sagittal images were also reviewed. If IV contrast material had not been administered, the likelihood of detecting abnormalities relevant to the patients condition would have been substantially decreased. CT scan was performed according to ALARA (as low as reasonable achievable). COMPARISON: none. FINDINGS: Bilateral internal carotid arteries show normal course, calibre and opacification in the canalicular and cavernous part. Their division into the anterior cerebral artery and middle cerebral artery is defined. A1, A2 and M1, M2 segments are normal on both the sides. Bilateral vertebral arteries are seen to unite the form the basilar artery in a normal fashion. Basilar artery shows normal course, caliber and opacification. Its division into the posterior cerebral arteries is defined. Left P1 and bilateral P2 segments are normal. origin of right posterior cerebral artery seen. Visualized venous structures show normal opacification. No evidence of intracranial aneurysm or AV malformation is seen. IMPRESSION: 1. No evidence of stenosis or aneurysm. No evidence of dissection. Electronically signed by Rod Coon 03-13-2024 01:32 AM
[2024-03-13 07:24] LABS: Basophils # (auto) 0.01 K/uL (0.00-0.20); Basophils % (auto) 0.1 %; Eosinophils # (auto) 0.01 K/uL (0.00-0.50); Eosinophils % (auto) 0.1 %; Hematocrit (blood only) 32.7 % (37.0-47.0); Hemoglobin 10.7 g/dl (12.0-16.0); Immature Granulocytes # (auto) 0.05 K/uL (0.01-0.20); Immature Granulocytes % (auto) 0.4 %; Lymphocytes # (auto) 0.67 K/uL (1.20-3.40); Lymphocytes % (auto) 5.8 %; Mean Corpuscular Hemoglobin 28.8 pg (25.0-34.0); Mean Corpuscular Hgb Conc 32.7 g/dL (32.0-36.0); Mean Corpuscular Volume 88.1 fL (80.0-100.0); Mean Platelet Volume 10.3 fL (9.4-12.4); Monocytes # (auto) 0.51 K/uL (0.11-0.59); Monocytes % (auto) 4.4 %; Neutrophils # (auto) 10.26 K/uL (1.40-6.50); Neutrophils % (auto) 89.2 %; Platelet Count 178 K/uL (130-400); RDW Coefficient of Variation 13.6 % (11.5-14.5); RDW Standard Deviation 44.4 fL (36.4-46.3); Red Blood Count 3.71 M/uL (4.20-5.40); White Blood Count 11.51 K/ul (4.8-10.8)
[2024-03-13 07:58] LABS: Magnesium 1.7 mg/dl (1.7-2.4)
[2024-03-13 10:26] LABS: BUN Creatinine Ratio 27.4 (10-20); Calcium 8.6 mg/dl (8.6-10.3); Chol HDL Ratio 2.5 (0-5); Potassium 2.8 mmol/L (3.5-5.1)
[2024-03-13] MEDS: ENOXAPARIN INJ 40 MG/0.4 ML SYR SQ SCH (10:52)
[2024-03-13] MEDS: ASPIRIN 300 MG SUPP PR SCH (10:53)
[2024-03-13] MEDS: PLASMA-LYTE A 1,000 ML IV SCH (11:04)
--- NOTE | 2024-03-13 11:32 | Neurology Consultation ---
Date of Consultation March 13, 2024 Assessment & Plan (1) Embolic stroke: (2) Nonischemic cardiomyopathy: Plan Multiple small acute probable cardioembolic strokes within the right frontal and left occipital lobes as well as the left thalamus. Patient does have a history of nonischemic cardiomyopathy/Takotsubo cardiomyopathy identified on echocardiogram last month. She is currently obtunded, sonorous, in the context of sepsis, UTI, pneumonia, acute kidney injury. She also exhibits left hemineglect. Continue with aspirin per rectum. Would check an up-to-date transthoracic echocardiogram with bubble study. The patient is found to have left ventricular thrombus or atrial fibrillation, would consider anticoagulation. Would also rule out endocarditis. May resume Crestor when patient able to tolerate p.o. Consider ambulatory cardiac monitoring, MCOT. History of Present Illness Reason for Consultation: Stroke Requesting Physician: Bettye Attending Physician: Lu Herrera MD History of Present Illness The patient is a 73-year-old female who presented to the emergency department on March 09 with altered mental status. She has been admitted with sepsis, urinary tract infection, pneumonia, hyperglycemia, acute kidney injury. Past medical history is notable for nonischemic cardiomyopathy, type 2 diabetes mellitus, diabetic peripheral neuropathy, chronic kidney disease, odontoid fracture occurring this past September requiring posterior fusion. Due to persistent altered mental status, a brain MRI was completed yesterday which revealed small acute infarcts within the right frontal lobe, left occipital lobe, and left thalamus. I independently reviewed these images and was able to appreciate these findings. A CTA of the head and neck were unremarkable. An electrocardiogram is revealed sinus tachycardia. The patient is sonorous, obtunded, and unable to provide any history. See examination below. Allergies Allergy/AdvReac Type Severity Reaction Status Date / Time baclofen AdvReac Intermediate Hallucinati Verified 12/21/23 14:08 ng cyclobenzaprine AdvReac Intermediate Hallucinati Verified 12/21/23 14:08 ng Home Medications Medication Instructions Recorded Confirmed Type cholecalciferol (vitamin D3) 50 2,000 units PO DAILY 11/08/18 03/10/24 History mcg (2,000 unit) capsule cyanocobalamin (vitamin B-12) 1,000 mcg PO DAILY 11/08/18 03/10/24 History 1,000 mcg tablet aspirin 81 mg tablet,delayed 81 mg PO DAILY #90 tabs 06/23/19 03/10/24 Rx release venlafaxine 150 mg 150 mg PO BID 01/18/22 03/10/24 History capsule,extended release 24 hr metformin 1,000 mg tablet 1,000 mg PO BID #180 tabs 10/24/22 03/10/24 Rx rosuvastatin 20 mg tablet 20 mg PO QAM #90 tabs 10/24/22 03/10/24 Rx bupropion HCl 150 mg tablet,12 hr 300 mg PO DAILY 02/23/23 03/10/24 History sustained-release amoxicillin 500 mg capsule 2,000 mg PO DIRECTED PRN 1 HR 03/09/23 03/10/24 History PRIOR TO DENTAL PROCEDURES pen needle, diabetic 32 gauge x #400 ea 03/15/23 12/21/23 Rx 32" (BD Ultra-Fine Marleny Pen Needle) blood sugar diagnostic (OneTouch #600 ea 05/10/23 12/21/23 Rx Ultra Test strips) insulin lispro 100 unit/mL See Rx Instructions .Route .COMPLEX 08/02/23 03/10/24 History subcutaneous pen (Humalog KwikPen (U-100) Insulin) blood-glucose meter #1 ea 08/10/23 12/21/23 Rx albuterol sulfate 90 mcg/actuation 2 puff inhalation Q4H PRN 10/10/23 03/10/24 History aerosol inhaler Shortness Of Breath Or Wheezing gabapentin 300 mg capsule 300 mg PO TID 12/21/23 03/10/24 History hydrocortisone 10 mg tablet 10 mg PO QPM 1 month #30 tabs 02/12/24 03/10/24 Rx (Cortef) magnesium oxide 400 mg (241.3 mg 400 mg PO BID 1 month #60 tabs 02/12/24 03/10/24 Rx magnesium) tablet acetaminophen 500 mg tablet 1,000 mg PO Q8H PRN pain 03/10/24 03/10/24 History bisacodyl 10 mg rectal suppository 10 mg [place] DAILY PRN Constipation 03/10/24 03/10/24 History (Dulcolax (bisacodyl)) buspirone 30 mg tablet 30 mg PO BID 03/10/24 03/10/24 History hydrocortisone 20 mg tablet 20 mg PO QAM 03/10/24 03/10/24 History insulin glargine 100 unit/mL (3 10 unit subcut BID 03/10/24 03/10/24 History mL) subcutaneous pen (Lantus Solostar U-100 Insulin) magnesium hydroxide 400 mg/5 mL See Rx Instructions .Route .COMPLEX 03/10/24 03/10/24 History oral suspension (Milk of Magnesia) pantoprazole 40 mg tablet,delayed 40 mg PO DAILY 03/10/24 03/10/24 History release sodium phosphates 19 gram-7 118 ml [place] DAILY PRN Constipation 03/10/24 03/10/24 History gram/118 mL enema (Fleet Enema) Patient History Medical History Anterolisthesis of lumbar spine Elevated troponin Fall C6 cervical fracture Acute anterior epistaxis Perianal abscess Vitiligo Venous insufficiency (chronic) (peripheral) NSTEMI (non-ST elevated myocardial infarction) Mixed conductive and sensorineural hearing loss of both ears Frequent falls Cardiomyopathy Dyslipidemia Hypertension Hiatal hernia Small GERD (gastroesophageal reflux disease) Depression Surgical History Hx of cardiac cath Mar 2018. Normal coronary arteries. History of total knee replacement RT TKA APPROX 15 YEARS AGO L TKA 01/23/2018 Family History Mother Hypertension Cancer Melanoma Father Breast cancer Cancer Melanoma Family/Other Breast cancer Unknown Osteoarthritis Denies family history of Ovarian cancer Prostate cancer Heart disease Colorectal cancer Lung disease Stroke Asthma Social History Smoking Status: Never smoker Second Hand Exposure: No; Do You Dip or Chew Tobacco: No; Hx Alcohol Use: No Hx Substance Use: No Preferred Language: [place]an Communication Ability: Impaired Communication Ability Comment: D/t facial edema from fall pt cannot see well enough to sign documents now Visual Impairment: No Limitations Hearing Ability: Normal Line Department Supervisor Required: No Beliefs That Will Affect Care: None marital status: Current Living Situation: [facility] Current Living Situation Comment: [facility] current occupational status: disabled Other Information That Helps Us Care for You: No Feels Safe at Home: Yes Childhood Exposure to Second-Hand Smoke: No Diet: regular caffeine: Yes Dental Care, Regularly: Yes Physical Activity Frequency: 3-4 Times per Week Physical Activity Frequency Comment: walk Seatbelt Use: always Sunscreen Use: No (not in the sun) Do you think of yourself as: straight/heterosexual Assistive Devices: Glasses Review of Systems Review of Systems: Unobtainable due to reduced consciousness Exam (Neuro) Constitutional: well developed and + frail appearing Eyes: normal visual hernández by confrontation, PERRL and EOM intact bilaterally (Right gaze preference noted); no nystagmus Neurologic: Oriented to:: Other (Patient obtunded, sonorous) Cortical Function: Neglect of Body Part Laterality: Left Attention: negative Span Intact Speech Fluency: Other (Nonverbal) Cranial Nerves: Normal III, IV, , V, VII, IX, X and XII Hypertonicity: Arms and Legs Muscle Bulk/Involuntary Movements: No Involuntary Movements; negative Muscle Atrophy Deep Tendon Reflexes: Rt Triceps: 2+, Lt Triceps: 2+, Rt Biceps: 2+, Lt Biceps: 2+, Rt Brachioradialis: 2+, Lt Brachioradialis: 2+, Rt Patellar: 2+, Lt Patellar: 2+, Rt Ankle: 1+ and Lt Ankle: 1+ Special Tests: Babinski Present (left) Results & Data Vital Signs (Past 12 Hours) Vital Signs Temp Pulse Resp BP Pulse Ox O2 Del Method O2 Flow Rate 03/13/24 11:01 36.9 C 98 H 22 159/93 H 97 Oxymask 4 03/13/24 07:42 36.9 C 100 H 20 145/88 H 94 Oxymask 4 03/13/24 03:01 36.6 C 95 H 22 154/81 H 94 Oxymask Laboratory Results Hemoglobin A1c from this past December was 9.1. Lipid panel completed today reviewed. Triglycerides 131, cholesterol 84, 6, HDL 33. TSH from last month was 0.934. Diagnostic Findings An echocardiogram completed February 05, 2024 revealed hypokinetic basal septal segments, remainder of the mid to distal and apical segments severely hypokinetic to akinetic, pattern similar to Takotsubo cardiomyopathy. No significant valvular pathology, normal atrial sizes. An electrocardiogram completed on March 09 revealed sinus tachycardia. Coding Level of Care Code 94034 INT INP/OBS CARE 3/75MIN Diagnoses Embolic stroke I63.9 Nonischemic cardiomyopathy I42.8 Time Spent (min) 80 Comment Total time includes patient contact, chart review, counseling, note preparation
[2024-03-13] MEDS: INSULIN ASPART PER UNIT CHARGE SC SCH (11:58)
--- NOTE | 2024-03-13 13:15 | XCELERA ---
[id number]
--- NOTE | 2024-03-13 13:44 | Pharmacy Report ---
Pharmacy Glycemic Short Note 2 - Date of Service March 13, 2024 - Glycemic Short BSG Results (Last 24 hours): 03/12/24 03/12/24 03/13/24 17:53 23:34 05:35 Glucose POC Glucose 150 H 205 H 287 H 03/13/24 03/13/24 03/13/24 06:49 11:34 11:36 Glucose 308 H* POC Glucose 346 H* 332 H* OUTPATIENT ANTIDIABETIC REGIMEN: * NovoLog TIDM (pre-meal BSG <250 --> 14 units, pre-meal BSG >250--> 18 units, hold if eating less than 25% of meal) * Lantus 16 units SQ BID * HbA1c 9.1% (01/12/24) ASSESSMENT: 03/13 * BSGs had improved yesterday 151-158-150 mg/dL with 10 units of lantus * BSGs have trended upward after addition of D5 containing fluids yesterday in conjunction with q6H checks--the dextrose containing fluid was stopped this AM shortly before noon check. Therefore anticipate BSGs to trend back down- will go back to q4H checks for now and monitor 03/10: * BSGs elevated the past 12h. Insulin drip was initiated and discontinued yesterday afternoon and then restarted last night (stopped ~ 0400 this AM). Received 20 units of basal yesterday and an additional 10 units so far this AM. * Continues on hydrocortisone 50mg IV q8h as well as IV antibiotics. NPO. * Continue Novolog q4 while NPO until BSGs consistently less than 200mg/dL. Plan for HS Lantus scale depending on BSG. Pt has historically required ~ 30 units of basal daily, however this is currently confounded by NPO status and IV steroids. 03/09: * Sole is a 73 YOF admitted with pneumonia/sepsis and a history of type 2 diabetes mellitus with hyperglycemia upon admission. Pharmacy has been consulted to assist with glycemic management. * Upon admission BSG 518, AG 16, CO2 23, lactic acid 5.7. Decision was made to begin an insulin infusion to correct hyperglycemia. BSGs trending down into goal range at this time and D51/2NS + 40KCl added to regimen. Plan to maintain insulin drip at this time due to ICU status and high risk of respiratory failure as well as beginning on stress dose IV steroids. PLAN FOR INPATIENT GLYCEMIC CONTROL: * Hold outpatient oral diabetes medications * Basal insulin * Lantus 10 units qAM * Bolus insulin * NovoLog per scale ACHS or Q4hrs while NPO * Goal Range: Low 110 mg/dL - High 140 mg/dL * Correction Factor: 20 mg/dL/unit * Nutritional / Prandial insulin per carb ratio of 1 unit per 9 grams CHO consumed
--- NOTE | 2024-03-13 14:08 | Hospitalist Progress Note ---
Date of Service March 13, 2024 Assessment & Plan (1) Sepsis: Plan: Patient is a 73-yo female with PMH of CKD, DM 2, gastroparesis, vitamin D deficiency, relative adrenal insufficiency, cervical spine fracture, asthma, GERD, depression/anxiety, choledocholithiasis with bile leak s/p cholecystectomy with biliary stents in place, and recent Takotsubo cardiomyopathy who presented with altered mental status, found to have sepsis, UTI, possible pneumonia, and hyperglycemia with LUTHER and acute respiratory failure with hypoxemia and acute respiratory distress Remains with severe acute encephalopathy-mostly obtunded, flaccid extremities except can wiggle toes bilat. Did try to talk a little on 03/13--> with acute CVA Tachycardia, tachypnea improved, remains on 4 L facemask O2 Blood pressures have improved with IV fluids and stress dose steroids With significant leukocytosis of 20, elevated lactate, and mildly elevated procalcitonin on admission all of which are now improved CXR w/ RLL PNA and with abnormal UA Blood cxs remain NGTD, urine cx with 2 strains of Pseudomonas which is pansensitive Does have a CBD stent in place but T. bili/AST/ALT normal, alkaline phosphatase elevated but much lower than previous; abdomen nontender and soft making GI source less likely Started on cefepime and daptomycin upon admission-MRSA nasal swab negative, and subsequently discontinued daptomycin Based on HERMINIO, pharmacy recommended changing cefepime to Zosyn on 03/11-will complete 7 day course on 03/17/24 Continue steroids with IV hydrocortisone 50 Mg IV every 12 hours while NPO Continue to follow blood cultures-NGTD Follow CBC, CMP, magnesium-replace lytes as needed--> today again with severe hypokalemia and hypomagnesemia-give 80 meq KCl IV and 2 grams IV mag APAP as needed for fever (2) Embolic stroke: Plan: CT head initially negative Encephalopathy initially thought to be 2/2 sepsis, relative adrenal insufficiency, hypoxemia, DKA, but given fevers and encephalopathy, considered meningoencephalitis or seizures, neurological focal issue Brain MRI with contrast on 03/12 showed multiple tiny subacute to acute ischemic strokes in R frontal, left occipital, and left thalamus CTA head and neck negative Echocardiogram with bubble study shows now hyperdynamic EF greater than 70%, mild LVOT, no wall motion abnormalities, and negative interatrial septal shunt Likely embolic stroke but no thrombus seen on echo Telemetry has been with sinus rhythm this hospital stay and no mention of atrial fibrillation or flutter in previous hospital stays-if survives this hospital stay, would recommend long-term cardiac event monitoring after discharge Hold off on therapeutic anticoagulation at this point in time-she had a previous nonischemic cardiomyopathy which may have been the source of the thrombus Start aspirin 300 Mg HI once daily Start statin if able to take p.o. Continue supportive care It is okay to give Lovenox SQ for DVT prophylaxis in the setting of acute ischemic stroke-she is not high risk for hemorrhagic conversion given small size of strokes If not improving over the next few days, would transition to comfort measures only as discussed with the patient's mother/POA on 03/13 (3) Encephalopathy: Plan: Initially thought to be 2/2 sepsis, relative adrenal insufficiency, hypoxemia, DKA, but given fevers and encephalopathy, considered meningoencephalitis or seizures, neurological focal issue Brain MRI with contrast on 03/12 showed strokes as above Continue supportive care, IVFs for now, keep NPO until more alert Continues on n.p.o. status as she is not mentating enough to tolerate a diet- Home p.o. medications on hold As per d/w mom/POA, pt would NOT want artificial tube feeds May end up transitioning to comfort measures only if no improvement from stroke through the weekend (4) UTI (urinary tract infection): Plan: Plan as noted above (5) DKA (diabetic ketoacidoses): Plan: BG 518 on admission, with pH 7.28, serum bicarbonate 21 with anion gap 16. Also with lactic acidosis contributing last A1c 01/12/24: 9.1% on Insulin therapy and Metformin outpatient Was on insulin drip and now weaned off to basal and bolus insulin, with some hyperglycemia now on D5 half-normal saline-discontinue D5 and start Plasma-Lyte Pharmacy glycemic consult is managing Keep electrolytes replete, follow BMP, magnesium-replacing potassium and magnesium (6) LUTHER (acute kidney injury): Plan: Creatine elevated on admission at 1.72, baseline ~0.8-likely prerenal and ATN secondary to DKA, sepsis s/p 2L NSS in ER and continues on IV fluids here while n.p.o. Creatinine now normal Follow BMP Avoid nephrotoxins and renally dose medications when needed Continue IV fluids while n.p.o.-change to Plasma-Lyte at 70 mL/h (7) Pneumonia: Plan: CXR + for RLL infiltrate. Respiratory viral biofire panel is negative Following blood cultures, continuing supplemental oxygen as needed-weaned to 4 L oxy mask Follow chest imaging to resolution (8) Adrenal insufficiency: Plan: Diagnosed on last hospital admission (01/31/24-02/12/24) based on response to IV hydrocortisone with refractory hypotension On hydrocortisone outpatient - 20mg in AM and 10mg PM Giving stress dose steroids with IV steroids here and weaned down to 50 mg IV every 12 hours (9) Demand ischemia: Plan: Troponin mildly elevated at 28/39/40, ECG here with sinus tachycardia but no ischemic changes. Difficult to say clinically if having angina as she is encephalopathic With a recent history of Takotsubo cardiomyopathy last admission Echocardiogram now with hyperdynamic EF and resolution of wall motion abnormalities from previous (10) Nonischemic cardiomyopathy: Plan: As noted above, previous Takotsubo's cardiomyopathy is now resolved on echo from 03/12 Was not on heart failure medication on discharge from last admission due to ongoing issues with hypotension Plan CAD-presumed based on severe calcifications of the coronary arteries seen on CT scan-now giving HI aspirin, but home statin on hold while n.p.o. Depression/anxiety-holding home bupropion and venlafaxine, BuSpar while n.p.o. with encephalopathy Neuropathy-holding home gabapentin GERD-holding home p.o. pantoprazole-continue IV PPI once daily while n.p.o. DVT prophylaxis-Lovenox SQ, SCDs Disposition-continued stay on PCU. Prognosis very guarded. Appreciate palliative medicine consultation-her mother is her decision-maker and knows that the patient would not want artificial feeds and would like to see how she does over the next 1 to 2 days before making decisions about pursuing comfort care if unable to eat and and if encephalopathy from acute CVA not improving Admission and Anticipated Discharge Date Admission Date: March 09, 2024 Subjective Patient still fairly obtunded today but briefly did try to talk to me and I believe she said "I have to go to the bathroom." It was very garbled and she would not open her eyes. This is the most interaction of had with her now in 4 days. Telemetry with normal sinus rhythm, PVCs, rates 80s to 90s Physical Exam Constitutional: + ill appearing Eyes: PERRL, conjunctivae normal, anicteric sclerae Respiratory: + tachypneic (but mild and improved toda y); no cough Auscultation: + crackles (Right base) and + rhonchi; no wheezes Cardiovascular: Rate/Rhythm: regular rate and regular rhythm Heart Sounds: no murmur Extremities: no edema Gastrointestinal (Abdomen): normal bowel sounds, soft, nontender, no hepatosplenomegaly Neurologic: + focal motor deficit (flaccid bilat UEs ,does wiggle toes bilat,bl inks eyes,grimaces), + confused and + obtunded; + does not move all extremities and + not awake Speech / Cognition: + expressive aphasia and + abnormal cognition Motor/Sensory: no tremor and no sensory deficit (difficult to assess but does withdraw to painful stimuli of feet) Results & Data Results & Data Vital Signs (Past 12 Hours) Vital Signs Temp Pulse Pulse Resp BP Pulse Ox O2 Del Method 03/13/24 11:01 36.9 C 98 H 22 159/93 H 97 Oxymask 03/13/24 07:42 36.9 C 100 H 20 145/88 H 94 Oxymask 03/13/24 07:00 95 H 03/13/24 03:01 36.6 C 95 H 22 154/81 H 94 Oxymask O2 Flow Rate 03/13/24 11:01 4 03/13/24 07:42 4 03/13/24 07:00 03/13/24 03:01 Laboratory Results CBC, BMP, magnesium, lipid panel reviewed Diagnostic Findings MRI brain , CTA head and neck reviewed ECHO reviewed PG Care Time/CCT Total # of Minutes Spent Total Time Spent with Patient: Total time spent is greater than 50% in coordination of care (as documented) at patient's floor/unit and/or counseling patient: Coding Level of Care Code 98947 SUB INP/OBS CARE 3/50MIN Diagnoses Sepsis A41.9 Sepsis acute organ dysfunction status: unspecified Sepsis type: sepsis due to unspecified organism Embolic stroke I63.9 Encephalopathy G93.40 UTI (urinary tract infection) N39.0 DKA (diabetic ketoacidoses) E13.10 LUTHER (acute kidney injury) N17.9 Pneumonia J18.9 Adrenal insufficiency E27.40 Demand ischemia I24.89 Nonischemic cardiomyopathy I42.8 (1) Sepsis Sepsis acute organ dysfunction status: unspecified Sepsis type: sepsis due to unspecified organism Qualified Code(s): A41.9 - Sepsis, unspecified organism
[2024-03-13] MEDS: POTASSIUM CHLORIDE / WTR 10 MEQ/100 ML PLCT IV SCH (16:12)
[2024-03-13] MEDS: MAGNESIUM SULFATE / D5W 1 GM/100 ML BAG IV SCH (16:17)
[2024-03-14 06:24] LABS: Basophils # (auto) 0.02 K/uL (0.00-0.20); Basophils % (auto) 0.3 %; Eosinophils # (auto) 0.03 K/uL (0.00-0.50); Eosinophils % (auto) 0.4 %; Hematocrit (blood only) 31.6 % (37.0-47.0); Hemoglobin 10.3 g/dl (12.0-16.0); Immature Granulocytes # (auto) 0.09 K/uL (0.01-0.20); Immature Granulocytes % (auto) 1.3 %; Lymphocytes # (auto) 0.95 K/uL (1.20-3.40); Lymphocytes % (auto) 14.1 %; Mean Corpuscular Hemoglobin 28.6 pg (25.0-34.0); Mean Corpuscular Hgb Conc 32.6 g/dL (32.0-36.0); Mean Corpuscular Volume 87.8 fL (80.0-100.0); Mean Platelet Volume 10.3 fL (9.4-12.4); Monocytes # (auto) 0.41 K/uL (0.11-0.59); Monocytes % (auto) 6.1 %; Neutrophils # (auto) 5.25 K/uL (1.40-6.50); Neutrophils % (auto) 77.8 %; Platelet Count 159 K/uL (130-400); RDW Coefficient of Variation 13.6 % (11.5-14.5); White Blood Count 6.75 K/ul (4.8-10.8)
[2024-03-14 06:49] LABS: BUN Creatinine Ratio 31.7 (10-20); Calcium 8.2 mg/dl (8.6-10.3); Creatinine Clr Calc Pharmacy 75.3 ml/min; Magnesium 1.8 mg/dl (1.7-2.4); Potassium 3.3 mmol/L (3.5-5.1)
--- NOTE | 2024-03-14 08:40 | Hospitalist Progress Note ---
Date of Service March 14, 2024 Assessment & Plan (1) Counseling regarding goals of care: Plan: Discussed with palliative care: Planning on observing patient over the weekend to see if her responsiveness improves. Not for tube feeding. Possible comfort care on Sunday if no improvement. (2) Sepsis: Plan: Urinary/PNA source - Blood cxs remain NGTD, urine cx with 2 strains of Pseudomonas which is pansensitive Continue IV Zosyn - will complete 7 day course on 03/17/24 Reduce hydrocortisone 25mg IV BID (3) Embolic stroke: Plan: CT head initially negative Encephalopathy initially thought to be 2/2 sepsis, relative adrenal insufficiency, hypoxemia, DKA, but given fevers and encephalopathy, considered meningoencephalitis or seizures, neurological focal issue Brain MRI with contrast on 03/12 showed multiple tiny subacute to acute ischemic strokes in R frontal, left occipital, and left thalamus CTA head and neck negative Echocardiogram with bubble study shows now hyperdynamic EF greater than 70%, mild LVOT, no wall motion abnormalities, and negative interatrial septal shunt Likely embolic stroke but no thrombus seen on echo Telemetry has been with sinus rhythm this hospital stay and no mention of atrial fibrillation or flutter in previous hospital stays-if survives this hospital stay, would recommend long-term cardiac event monitoring after discharge Hold off on therapeutic anticoagulation at this point in time-she had a previous nonischemic cardiomyopathy which may have been the source of the thrombus Start aspirin 300 Mg VT once daily Start statin if able to take p.o. Continue supportive care (4) Encephalopathy: Plan: Initially thought to be 2/2 sepsis, relative adrenal insufficiency, hypoxemia, DKA, but given fevers and encephalopathy, considered meningoencephalitis or seizures, neurological focal issue Brain MRI with contrast on 03/12 showed strokes as above Slight opening of eyes to command and movement of right fingers today Continue supportive care, IVFs for now, keep NPO until more alert Continues on n.p.o. status as she is not mentating enough to tolerate a diet- Home p.o. medications on hold As per d/w mom/POA, pt would NOT want artificial tube feeds (5) Pneumonia: Plan: CXR + for RLL infiltrate. Respiratory viral biofire panel is negative Aim O2 sats > 90% (6) UTI (urinary tract infection): Plan: Plan as noted above (7) DKA (diabetic ketoacidoses): Plan: Now resolved Present on Admission?: Yes (8) LUTHER (acute kidney injury): Plan: Now resolved Present on Admission?: Yes (9) Adrenal insufficiency: Plan: Diagnosed on last hospital admission (01/31/24-02/12/24) based on response to IV hydrocortisone with refractory hypotension On hydrocortisone outpatient - 20mg in AM and 10mg PM Giving stress dose steroids with IV steroids here and weaned down to 25 mg IV every 12 hours (10) Demand ischemia: Plan: Troponin mildly elevated at 28/39/40, ECG here with sinus tachycardia but no ischemic changes. Difficult to say clinically if having angina as she is encephalopathic With a recent history of Takotsubo cardiomyopathy last admission Echocardiogram now with hyperdynamic EF and resolution of wall motion abnormalit ies from previous Plan CAD-presumed based on severe calcifications of the coronary arteries seen on CT scan-now giving VT aspirin, but home statin on hold while n.p.o. Depression/anxiety-holding home bupropion and venlafaxine, BuSpar while n.p.o. with encephalopathy Neuropathy-holding home gabapentin GERD-holding home p.o. pantoprazole-continue IV PPI once daily while n.p.o. VTE Prophylaxis - Lovenox 40mg SQ daily Diet - NPO Disposition-continued stay on PCU. Prognosis very guarded. Appreciate palliative medicine consultation-her mother is her decision-maker and knows that the patient would not want artificial feeds and would like to see how she does over the weekend before making decisions about pursuing comfort care if unable to eat and and if encephalopathy from acute CVA not improving Admission and Anticipated Discharge Date Admission Date: March 09, 2024 Subjective Patient minimally opens eyes to voice. Not talking so unable to get subjective. Review of Systems Review of Systems: Unobtainable due to cognitive status Physical Exam Constitutional: + not well nourished and no acute distre ss ENMT: Mouth: + dry oral mucous membranes Respiratory: normal respiratory effort, lungs clear to auscultation Cardiovascular: RRR, no murmur, no edema Gastrointestinal (Abdomen): normal bowel sounds, soft, nontender, no hepatosplenomegaly Neurologic: + does not move all extremities (moving right fingers and toes only) Psychiatric: Orientation: alert (to voice); + not oriented to person, + not oriented to place and + not oriented to time Results & Data Results & Data Vital Signs (Past 12 Hours) Vital Signs Temp Pulse Pulse Pulse Resp BP Pulse Ox 03/14/24 07:49 36.0 C L 75 20 162/81 H 92 03/14/24 07:02 68 03/14/24 02:29 36.8 C 72 16 137/77 93 03/13/24 23:11 36.4 C L 03/13/24 22:49 35.9 C L 74 18 130/79 98 O2 Del Method O2 Flow Rate 03/14/24 07:49 Oxymask 2 03/14/24 07:02 03/14/24 02:29 Oxymask 3 03/13/24 23:11 03/13/24 22:49 Oxymask 3 PG Care Time/CCT Total # of Minutes Spent Total Time Spent with Patient: Total time spent is greater than 50% in coordination of care (as documented) at patient's floor/unit and/or counseling patient: Coding Level of Care Code 75078 SUB INP/OBS CARE 2/35MIN Diagnoses Counseling regarding goals of care Z71.89 Sepsis A41.9 Sepsis acute organ dysfunction status: unspecified Sepsis type: sepsis due to unspecified organism Embolic stroke I63.9 Encephalopathy G93.40 Pneumonia J18.9 UTI (urinary tract infection) N39.0 DKA (diabetic ketoacidoses) E13.10 LUTHER (acute kidney injury) N17.9 Adrenal insufficiency E27.40 Demand ischemia I24.89 (2) Sepsis Sepsis acute organ dysfunction status: unspecified Sepsis type: sepsis due to unspecified organism Qualified Code(s): A41.9 - Sepsis, unspecified organism
[2024-03-14] MEDS: ACETAMINOPHEN 1,000 MG/100 ML VIAL IV PRN (12:34)
[2024-03-14] MEDS: SODIUM CHLOR 0.45% + 20MEQ KCL 20 MEQ/1,000 ML BAG IV SCH (13:37)
--- NOTE | 2024-03-14 15:09 | Pharmacy Report ---
Pharmacy Glycemic Short Note 2 - Date of Service March 14, 2024 - Glycemic Short BSG Results (Last 24 hours): 03/13/24 03/13/24 03/13/24 16:02 20:23 23:54 Glucose POC Glucose 180 H 193 H 188 H 03/14/24 03/14/24 03/14/24 04:22 05:50 07:13 Glucose 190 H POC Glucose 195 H 165 H 03/14/24 11:01 Glucose POC Glucose 185 H OUTPATIENT ANTIDIABETIC REGIMEN: * NovoLog TIDM (pre-meal BSG <250 --> 14 units, pre-meal BSG >250--> 18 units, hold if eating less than 25% of meal) * Lantus 16 units SQ BID * HbA1c 9.1% (01/12/24) ASSESSMENT: 03/14 * Sole received 34 units of insulin yesterday (10 were basal) * Fasting BSG this AM acceptable, continue current basal regimen * Increase goal range due to NPO status and decreasing steroids (down to HC 25mg Q12H), removed carbohydrate ratio per RN request, BSGs likely elevated yesterday due to dextrose containing fluids. Continue with Q4 checks for now. 03/13 * BSGs had improved yesterday 151-158-150 mg/dL with 10 units of lantus * BSGs have trended upward after addition of D5 containing fluids yesterday in conjunction with q6H checks--the dextrose containing fluid was stopped this AM shortly before noon check. Therefore anticipate BSGs to trend back down- will go back to q4H checks for now and monitor 03/10: * BSGs elevated the past 12h. Insulin drip was initiated and discontinued yesterday afternoon and then restarted last night (stopped ~ 0400 this AM). Received 20 units of basal yesterday and an additional 10 units so far this AM. * Continues on hydrocortisone 50mg IV q8h as well as IV antibiotics. NPO. * Continue Novolog q4 while NPO until BSGs consistently less than 200mg/dL. Plan for HS Lantus scale depending on BSG. Pt has historically required ~ 30 units of basal daily, however this is currently confounded by NPO status and IV steroids. 03/09: * Sole is a 73 YOF admitted with pneumonia/sepsis and a history of type 2 diabetes mellitus with hyperglycemia upon admission. Pharmacy has been consulted to assist with glycemic management. * Upon admission BSG 518, AG 16, CO2 23, lactic acid 5.7. Decision was made to begin an insulin infusion to correct hyperglycemia. BSGs trending down into goal range at this time and D51/2NS + 40KCl added to regimen. Plan to maintain insulin drip at this time due to ICU status and high risk of respiratory failure as well as beginning on stress dose IV steroids. PLAN FOR INPATIENT GLYCEMIC CONTROL: * Hold outpatient oral diabetes medications * Basal insulin * Lantus 10 units qAM * Bolus insulin * NovoLog per scale ACHS or Q4hrs while NPO * Goal Range: Low 140 mg/dL - High 180 mg/dL * Correction Factor: 20 mg/dL/unit * Nutritional / Prandial insulin per carb ratio of 1 unit per NONE grams CHO consumed
[2024-03-14] MEDS: HYDROCORTISONE SOD 25 MG in SYRINGE 0 ML IV SCH (20:40)
[2024-03-15 07:41] LABS: Calcium 8.1 mg/dl (8.6-10.3); Creatinine Clr Calc Pharmacy 79.1 ml/min; Potassium 3.1 mmol/L (3.5-5.1)
[2024-03-15 07:55] LABS: Magnesium 1.6 mg/dl (1.7-2.4); Phosphorus 1.5 mg/dl (2.5-4.9)
[2024-03-15] MEDS ORDERED: POTASSIUM PHOS 3 MMOL/1 ML INFUSION IV STA (07:58)
--- NOTE | 2024-03-15 08:21 | Hospitalist Progress Note ---
Date of Service March 15, 2024 Assessment & Plan (1) Counseling regarding goals of care: Plan: Discussed with palliative care: Planning on observing patient over the weekend to see if her responsiveness improves. Not for tube feeding. Possible comfort care on Sunday if no improvement although she appears more awake today and SLT advanced to clear liquid diet. (2) Sepsis: Plan: Urinary/PNA source - Blood cxs remain NGTD, urine cx with 2 strains of Pseudomonas which is pansensitive Continue IV Zosyn - will complete 7 day course on 03/17/24 Reduce hydrocortisone back to home dosing 20mg IV QAM and 10mg IV in afternoon (3) Embolic stroke: Plan: CT head initially negative Encephalopathy initially thought to be 2/2 sepsis, relative adrenal insufficiency, hypoxemia, DKA, but given fevers and encephalopathy, considered meningoencephalitis or seizures, neurological focal issue Brain MRI with contrast on 03/12 showed multiple tiny subacute to acute ischemic strokes in R frontal, left occipital, and left thalamus CTA head and neck negative Echocardiogram with bubble study shows now hyperdynamic EF greater than 70%, mild LVOT, no wall motion abnormalities, and negative interatrial septal shunt Likely embolic stroke but no thrombus seen on echo Telemetry has been with sinus rhythm this hospital stay and no mention of atrial fibrillation or flutter in previous hospital stays-if survives this hospital stay, would recommend long-term cardiac event monitoring after discharge Hold off on therapeutic anticoagulation at this point in time-she had a previous nonischemic cardiomyopathy which may have been the source of the thrombus Started aspirin 300 Mg MS once daily Start statin once reliably taking PO Continue supportive care (4) Encephalopathy: Plan: Initially thought to be 2/2 sepsis, relative adrenal insufficiency, hypoxemia, DKA, but given fevers and encephalopathy, considered meningoencephalitis or seizures, neurological focal issue Brain MRI with contrast on 03/12 showed strokes as above As per d/w mom/POA, pt would NOT want artificial tube feeds Improving today and advanced to clear liquids, can d/c fluids after current order (5) Pneumonia: Plan: CXR + for RLL infiltrate. Respiratory viral biofire panel is negative Aim O2 sats > 90% (6) UTI (urinary tract infection): Plan: Plan as noted above (7) DKA (diabetic ketoacidoses): Plan: Now resolved (8) LUTHER (acute kidney injury): Plan: Now resolved (9) Adrenal insufficiency: Plan: Diagnosed on last hospital admission (01/31/24-02/12/24) based on response to IV hydrocortisone with refractory hypotension On hydrocortisone outpatient - 20mg in AM and 10mg PM, now weaned back down to this (10) Demand ischemia: Plan: Troponin mildly elevated at 28/39/40, ECG here with sinus tachycardia but no ischemic changes. Difficult to say clinically if having angina as she is encephalopathic With a recent history of Takotsubo cardiomyopathy last admission Echocardiogram now with hyperdynamic EF and resolution of wall motion abnormalities from previous Plan CAD-presumed based on severe calcifications of the coronary arteries seen on CT scan-now giving MS aspirin, but home statin on hold while n.p.o. Depression/anxiety- restart bupropion and venlafaxine to avoid withdrawal Neuropathy - holding home gabapentin due to encephalopathy GERD - holding home p.o. pantoprazole-continue IV PPI once daily while n.p.o. VTE Prophylaxis - Lovenox 40mg SQ daily Diet - clear liquids Disposition-continued stay on PCU. Prognosis very guarded. Appreciate palliative medicine consultation-her mother is her decision-maker and knows that the patient would not want artificial feeds and would like to see how she does over the weekend before making decisions about pursuing comfort care if unable to eat and and if encephalopathy from acute CVA not improving Admission and Anticipated Discharge Date Admission Date: March 09, 2024 Subjective Patient minimally opens eyes to voice. Not talking so unable to get subjective. Physical Exam 2 Constitutional: + not well nourished and no acute distre ss ENMT: Mouth: + dry oral mucous membranes Respiratory: normal respiratory effort, lungs clear to auscultation Cardiovascular: Rate/Rhythm: regular rate and regular rhythm Extremities: + edema (especially right arm) Gastrointestinal (Abdomen): normal bowel sounds, soft, nontender, no hepatosplenomegaly Neurologic: + does not move all extremities (moving toes only) Psychiatric: Orientation: alert (to voice); + not oriented to person, + not oriented to place and + not oriented to time Results & Data Results & Data Vital Signs (Past 12 Hours) Vital Signs Temp Pulse Pulse Resp BP Pulse Ox O2 Del Method 03/15/24 07:53 36.8 C 70 18 173/88 H 93 Room Air 03/15/24 07:03 67 03/15/24 03:38 36.5 C 66 20 121/77 93 Room Air 03/14/24 22:49 36.5 C 70 20 115/75 93 Room Air PG Care Time/CCT Total # of Minutes Spent Total Time Spent with Patient: Total time spent is greater than 50% in coordination of care (as documented) at patient's floor/unit and/or counseling patient: Coding Level of Care Code 44005 SUB INP/OBS CARE 2/35MIN Diagnoses Counseling regarding goals of care Z71.89 Sepsis A41.9 Sepsis acute organ dysfunction status: unspecified Sepsis type: sepsis due to unspecified organism Embolic stroke I63.9 Encephalopathy G93.40 Pneumonia J18.9 UTI (urinary tract infection) N39.0 DKA (diabetic ketoacidoses) E13.10 LUTHER (acute kidney injury) N17.9 Adrenal insufficiency E27.40 Demand ischemia I24.89 (2) Sepsis Sepsis acute organ dysfunction status: unspecified Sepsis type: sepsis due to unspecified organism Qualified Code(s): A41.9 - Sepsis, unspecified organism
[2024-03-15] MEDS: MAGNESIUM SULFATE / D5W 1 GM/100 ML BAG IV SCH (08:48)
[2024-03-15] MEDS: POTASSIUM PHOSPHATE 21 MMOL in SODIUM CHLORIDE 0.9% 500 ML IV ONE (09:05)
[2024-03-15] MEDS: INSULIN ASPART PER UNIT CHARGE SC SCH (12:24)
[2024-03-15] MEDS: HYDROCORTISONE SOD 10 MG in SYRINGE 0 ML IV SCH (17:58)
[2024-03-15] MEDS: VENLAFAXINE HCL XR 150 MG CAPXR PO SCH (20:56)
[2024-03-16] MEDS ORDERED: Nursing to Pharmacy Communication SCH (07:30)
[2024-03-16] MEDS: buPROPion SR 150 MG TABCR PO SCH (08:32)
[2024-03-16] MEDS: ASPIRIN 81 MG ECTAB PO SCH (08:32)
[2024-03-16] MEDS: HYDROCORTISONE SOD 20 MG in SYRINGE 0 ML IV SCH (08:41)
[2024-03-16] MEDS: LANTUS PER UNIT CHARGE SC SCH (08:41)
[2024-03-16] MEDS: ACETAMINOPHEN 500 MG TAB PO SCH (11:50)
--- NOTE | 2024-03-16 11:57 | Hospitalist Progress Note ---
Date of Service March 16, 2024 Assessment & Plan (1) Counseling regarding goals of care: Plan: Discussed with palliative care: Planning on observing patient over the weekend to see if her responsiveness improves. Not for tube feeding. Possible comfort care on Sunday if no improvement although she appears more awake today and SLT advanced to full liquid diet. (2) Sepsis: Plan: Urinary/PNA source - Blood cxs remain NGTD, urine cx with 2 strains of Pseudomonas which is pansensitive Continue IV Zosyn - will complete 7 day course on 03/17/24 Switch hydrocortisone back to PO home dosing 20mg PO QAM and 10mg PO in afternoon (3) Embolic stroke: Plan: CT head initially negative Encephalopathy initially thought to be 2/2 sepsis, relative adrenal insufficiency, hypoxemia, DKA, but given fevers and encephalopathy, considered meningoencephalitis or seizures, neurological focal issue Brain MRI with contrast on 03/12 showed multiple tiny subacute to acute ischemic strokes in R frontal, left occipital, and left thalamus CTA head and neck negative Echocardiogram with bubble study shows now hyperdynamic EF greater than 70%, mil d LVOT, no wall motion abnormalities, and negative interatrial septal shunt Likely embolic stroke but no thrombus seen on echo Telemetry has been with sinus rhythm this hospital stay and no mention of atrial fibrillation or flutter in previous hospital stays-if survives this hospital stay, would recommend long-term cardiac event monitoring after discharge Hold off on therapeutic anticoagulation at this point in time-she had a previous nonischemic cardiomyopathy which may have been the source of the thrombus Aspirin 81mg PO daily I'm concerned about stating a statin given her profound weakness and inability to tell us if this makes her worse at this stage Continue supportive care (4) Encephalopathy: Plan: Initially thought to be 2/2 sepsis, relative adrenal insufficiency, hypoxemia, DKA, but given fevers and encephalopathy, considered meningoencephalitis or seizures, neurological focal issue Brain MRI with contrast on 03/12 showed strokes as above As per d/w mom/POA, pt would NOT want artificial tube feeds Improving today and advanced to full liquids but fluctuates much during the day (5) Pneumonia: Plan: CXR + for RLL infiltrate. Respiratory viral biofire panel is negative Aim O2 sats > 90% (6) UTI (urinary tract infection): Plan: Plan as noted above (7) DKA (diabetic ketoacidoses): Plan: Now resolved (8) LUTHER (acute kidney injury): Plan: Now resolved (9) Adrenal insufficiency: Plan: Diagnosed on last hospital admission (01/31/24-02/12/24) based on response to IV hydrocortisone with refractory hypotension On hydrocortisone outpatient - 20mg in AM and 10mg PM, now weaned back down to this (10) Demand ischemia: Plan: Troponin mildly elevated at 28/39/40, ECG here with sinus tachycardia but no ischemic changes. Difficult to say clinically if having angina as she is encephalopathic With a recent history of Takotsubo cardiomyopathy last admission Echocardiogram now with hyperdynamic EF and resolution of wall motion abnormalities from previous Plan CAD-presumed based on severe calcifications of the coronary arteries seen on CT scan-now giving [place] aspirin, but home statin on hold while n.p.o. Depression/anxiety- restarted bupropion and venlafaxine to avoid withdrawal Neuropathy - holding home gabapentin due to encephalopathy GERD - holding home p.o. pantoprazole-continue IV PPI once daily while n.p.o. VTE Prophylaxis - Lovenox 40mg SQ daily Diet - clear liquids Disposition- stable for downgrade to med/surg. Prognosis very guarded. Appreciate palliative medicine consultation-her mother is her decision-maker and knows that the patient would not want artificial feeds and would like to see how she does over the weekend before making decisions about pursuing comfort care if unable to eat and and if encephalopathy from acute CVA not improving Admission and Anticipated Discharge Date Admission Date: March 09, 2024 Subjective More awake today. Able to tell me she is having neck pain but otherwise not responding much. Moving her toes bilaterally and able to move her right hand and fingers but not really following commands. Review of Systems 2 Review of Systems: All systems reviewed & are unremarkable except as noted in HPI & below Physical Exam Constitutional: + not well nourished and no acute distre ss ENMT: Mouth: oral mucous membranes not dry Respiratory: normal respiratory effort, lungs clear to auscultation Cardiovascular: Rate/Rhythm: regular rate and regular rhythm Extremities: + edema (especially right arm) Gastrointestinal (Abdomen): normal bowel sounds, soft, nontender, no hepatosplenomegaly Neurologic: + does not move all extremities (moving toes and right upper extremity but not to command) Psychiatric: Orientation: alert (to voice); + not oriented to person, + not oriented to place and + not oriented to time Results & Data Results & Data Vital Signs (Past 12 Hours) Vital Signs Temp Pulse Pulse Resp BP BP Pulse Ox 03/16/24 10:45 36.8 C 91 H 17 113/79 91 03/16/24 08:00 03/16/24 07:30 36.7 C 94 H 21 118/77 90 03/16/24 03:28 36.3 C L 89 22 119/78 89 L O2 Del Method 03/16/24 10:45 Room Air 03/16/24 08:00 Room Air 03/16/24 07:30 Room Air 03/16/24 03:28 Room Air PG Care Time/CCT Total # of Minutes Spent Total Time Spent with Patient: Total time spent is greater than 50% in coordination of care (as documented) at patient's floor/unit and/or counseling patient: Coding Level of Care Code 64895 SUB INP/OBS CARE 2/35MIN Diagnoses Counseling regarding goals of care Z71.89 Sepsis A41.9 Sepsis acute organ dysfunction status: unspecified Sepsis type: sepsis due to unspecified organism Embolic stroke I63.9 Encephalopathy G93.40 Pneumonia J18.9 UTI (urinary tract infection) N39.0 DKA (diabetic ketoacidoses) E13.10 LUTHER (acute kidney injury) N17.9 Adrenal insufficiency E27.40 Demand ischemia I24.89 (2) Sepsis Sepsis acute organ dysfunction status: unspecified Sepsis type: sepsis due to unspecified organism Qualified Code(s): A41.9 - Sepsis, unspecified organism
[2024-03-16 14:48] LABS: Albumin Level 2.6 gm/dl (3.4-5.0); Bilirubin,Total 0.5 mg/dl (0.2-1.0); Calcium 8.1 mg/dl (8.6-10.3); Carbon Dioxide 27 mmol/L (21-32); Chloride 103 mmol/L (98-107)
[2024-03-16 15:00] LABS: Alanine Aminotransferase 20 U/L (7-52); Alkaline Phosphatase 380 U/L (34-104); BUN Creatinine Ratio 21.3 (10-20); Blood Urea Nitrogen 13 mg/dl (6-23); Creatinine Clr Calc Pharmacy 77.8 ml/min; Globulin 2.7 gm/dl (2.5-4.0); Glucose 196 mg/dl (70-99(Fasting)); Phosphorus 2.9 mg/dl (2.5-4.9); Total Protein 5.3 gm/dl (6.0-8.3)
[2024-03-16 15:44] LABS: Magnesium 1.6 mg/dl (1.7-2.4); Potassium 3.6 mmol/L (3.5-5.1)
[2024-03-16] MEDS: HYDROCORTISONE 10 MG TAB PO SCH (16:43)
[2024-03-16] MEDS: POTASSIUM CHLORIDE / WTR 10 MEQ/100 ML PLCT IV SCH (21:35)
[2024-03-16] MEDS: MAGNESIUM SULFATE / D5W 1 GM/100 ML BAG IV SCH (21:35)
[2024-03-17] MEDS: HYDROCORTISONE 10 MG TAB PO SCH (07:53)
--- NOTE | 2024-03-17 11:03 | Pharmacy Report ---
Pharmacy Glycemic Short Note 2 - Date of Service March 17, 2024 - Glycemic Short BSG Results (Last 24 hours): 03/16/24 03/16/24 03/16/24 11:23 14:14 16:36 Glucose 196 H POC Glucose 186 H 163 H 03/16/24 03/17/24 20:21 07:38 Glucose POC Glucose 182 H 162 H OUTPATIENT ANTIDIABETIC REGIMEN: * NovoLog TIDM (pre-meal BSG <250 --> 14 units, pre-meal BSG >250--> 18 units, hold if eating less than 25% of meal) * Lantus 16 units SQ BID * HbA1c 9.1% (01/12/24) ASSESSMENT: 03/17 * Patient received 18 units of insulin yesterday (12 were basal). * Fasting BSG this morning slightly over goal. However will leave basal insulin as is for now since steroid dose has been decreased some today. * CHO ratio was tightened yesterday with breakfast. However, all BSG readings have been above goal so the CHO ratio was tightened again starting with lunch today. * Patient remains on zosyn for a UTI and is ordered a full liquid diet. 03/14 * Sole received 34 units of insulin yesterday (10 were basal) * Fasting BSG this AM acceptable, continue current basal regimen * Increase goal range due to NPO status and decreasing steroids (down to HC 25mg Q12H), removed carbohydrate ratio per RN request, BSGs likely elevated yesterday due to dextrose containing fluids. Continue with Q4 checks for now. 03/13 * BSGs had improved yesterday 151-158-150 mg/dL with 10 units of lantus * BSGs have trended upward after addition of D5 containing fluids yesterday in conjunction with q6H checks--the dextrose containing fluid was stopped this AM shortly before noon check. Therefore anticipate BSGs to trend back down- will go back to q4H checks for now and monitor 03/10: * BSGs elevated the past 12h. Insulin drip was initiated and discontinued yesterday afternoon and then restarted last night (stopped ~ 0400 this AM). Received 20 units of basal yesterday and an additional 10 units so far this AM. * Continues on hydrocortisone 50mg IV q8h as well as IV antibiotics. NPO. * Continue Novolog q4 while NPO until BSGs consistently less than 200mg/dL. Plan for HS Lantus scale depending on BSG. Pt has historically required ~ 30 units of basal daily, however this is currently confounded by NPO status and IV steroids. 03/09: * Sole is a 73 YOF admitted with pneumonia/sepsis and a history of type 2 diabetes mellitus with hyperglycemia upon admission. Pharmacy has been consulted to assist with glycemic management. * Upon admission BSG 518, AG 16, CO2 23, lactic acid 5.7. Decision was made to begin an insulin infusion to correct hyperglycemia. BSGs trending down into goal range at this time and D51/2NS + 40KCl added to regimen. Plan to maintain insulin drip at this time due to ICU status and high risk of respiratory failure as well as beginning on stress dose IV steroids. PLAN FOR INPATIENT GLYCEMIC CONTROL: * Hold outpatient oral diabetes medications * Basal insulin * Lantus 10 units qAM * Bolus insulin * NovoLog per scale ACHS or Q4hrs while NPO * Goal Range: Low 140 mg/dL - High 180 mg/dL * Correction Factor: 20 mg/dL/unit * Nutritional / Prandial insulin per carb ratio of 1 unit per NONE grams CHO consumed
--- NOTE | 2024-03-17 14:38 | Hospitalist Progress Note ---
Date of Service March 17, 2024 Assessment & Plan (1) Embolic stroke: (2) Sepsis: Plan: Urinary/PNA source - (3) LUTHER (acute kidney injury): (4) Adrenal insufficiency: Plan 73-year-old female, with history of diabetes, cardiac disease, CKD 3, and adrenal insufficiency. initially admitted with concern for metabolic encephalopathy from infection (confirmed urinary infection and suspected pulmonary source additionally) found to have embolic stroke of undetermined source, (suspect to be ventricular) suspect ventricular thrombus as origin of embolic stroke, recommend long-term cardiac event monitoring after discharge Hold off on therapeutic anticoagulation at this point in time-she had a previous nonischemic cardiomyopathy which may have been the source of the thrombus Aspirin 81mg PO daily Brain MRI with contrast on 03/12 showed multiple tiny subacute to acute ischemic strokes in R frontal, left occipital, and left thalamus CTA head and neck negative Echocardiogram with bubble study shows now hyperdynamic EF greater than 70%, mild LVOT, no wall motion abnormalities, and negative interatrial septal shunt Encephalopathy initially thought to be 2/2 sepsis, relative adrenal insufficiency, hypoxemia, DKA, but given fevers and encephalopathy, she eventually did have a confirmed Pseudomonas urinary tract infection treated with 1 week of antibiotics last dose 03/17/2024 adrenal insufficiency, Diagnosed on last hospital admission (01/31/24-02/12/24), did have stress dosing now hydrocortisone back to PO home dosing 20mg PO QAM and 10mg PO in afternoon CAD-presumed based on severe calcifications of the coronary arteries seen on CT scan-now giving [place] aspirin, elevated troponon from demand ischemia LUTHER on CKD3, LUTHER resolved Depression/anxiety- restarted bupropion and venlafaxine to avoid withdrawal Neuropathy - holding home gabapentin due to encephalopathy GERD - holding home p.o. pantoprazole-continue IV PPI once daily while n.p.o. VTE Prophylaxis - Lovenox 40mg SQ daily Disposition- stable for downgrade to med/surg. Prognosis very guarded. Appreciate palliative medicine consultation-her mother is her decision-maker and knows that the patient would not want artificial feeds and would like to see how she does over the weekend before making decisions about pursuing comfort care if unable to eat and and if encephalopathy from acute CVA not improving Admission and Anticipated Discharge Date Admission Date: March 09, 2024 Subjective Patient is awake speaks in limited vocabulary is in no distress says she patient is awake she says she had breakfast speaks in limited vocabulary states she is in no distress. Physical Exam Physical Exam: pt does have some limited upper arm movements has cardiac murmur, lungs diminished likely from atelectasis from position 1-2+ edema on le Results & Data Results & Data Vital Signs (Past 12 Hours) Vital Signs Temp Pulse Resp BP Pulse Ox O2 Del Method 03/17/24 08:06 97.7 F 83 16 120/76 94 Room Air 03/17/24 07:45 Room Air Laboratory Results reviewed poc glucoses ordered labs from 03/18 PG Care Time/CCT Total # of Minutes Spent Total Time Spent with Patient: Total time spent is greater than 50% in coordination of care (as documented) at patient's floor/unit and/or counseling patient: Coding Level of Care Code 52016 SUB INP/OBS CARE 3/50MIN Diagnoses Embolic stroke I63.9 Sepsis A41.9 Sepsis acute organ dysfunction status: unspecified Sepsis type: sepsis due to unspecified organism LUTHER (acute kidney injury) N17.9 Adrenal insufficiency E27.40 (2) Sepsis Sepsis acute organ dysfunction status: unspecified Sepsis type: sepsis due to unspecified organism Qualified Code(s): A41.9 - Sepsis, unspecified organism
--- NOTE | 2024-03-17 17:25 | Palliative Care Progress Note ---
Date of Service March 17, 2024 Assessment & Plan (1) Palliative care by specialist: (2) Counseling regarding goals of care: (3) Advance care planning: Plan 73-year-old female, with history of diabetes, cardiac disease, CKD 3, and adrenal insufficiency. initially admitted with concern for metabolic encephalopathy 2/2 urosepsis (she had similar admission recently and recovered to baseline with few days of IV ABx). She did not have neuro recovery with antibiotics and an MRI revealed embolic stroke of undetermined source. Pt. has had modest neurologic recovery over weekend but is not at her baseline. Palliative care plan agreed upon with pt's mother/LNOK Prema was to readdress goals of care this week after speech therapy has weighed in on safety of oral feeding. Per notes, ST did work with pt today with recommendations for supervised/assisted feeding of pureed diet with thin liquids. No family present at bedside on 2 visits today. Did attempt to call pt's mother Prema, no answer and unable to leave VM. From previous conversations with Prema, feeding via either NGT or PEG are not consistent with pt's previously verbalized wishes/GOC. Goals are clearly established for DNR/DNI but continue life prolonging therapy at this time with intent to transition to CM with pleasure feeds if pt unable to eat safely OR unable to maintain enough oral intake to meet nutritional needs. Will continue to attempt contact with pt's mother on 03/18/24. Admission and Anticipated Discharge Date Admission Date: March 09, 2024 Subjective More awake today, but seems congruent wiuth trajectory per other provider notes. She does attest to neck pain and that she had eaten breakfast but unable to recall what she had eaten. She was oriented to person but not time or place. She did appear to follow simple, single step commands. No visitors present. Review of Systems Review of Systems: All systems reviewed & are unremarkable except as noted in HPI & below Physical Exam Constitutional: + ill appearing, + frail appearing and + lethargic Respiratory: no cough Auscultation: lungs clear to auscultation bilaterally and + diminished lung sounds Cardiovascular: Heart Sounds: normal S1 and normal S2; no murmur Extremities: no edema Gastrointestinal (Abdomen): normal bowel sounds, soft, nontender, no hepatosplenomegaly Skin: no rashes, warm and dry Lymphatic: no cervical lymphadenopathy Results & Data Vital Signs (Past 12 Hours) Vital Signs Temp Pulse Pulse Resp BP Pulse Ox O2 Del Method 03/17/24 15:37 36.3 C L 76 18 147/88 H 97 Room Air 03/17/24 08:06 36.5 C 83 16 120/76 94 Room Air 03/17/24 07:45 Room Air Laboratory Results Abnormal lab results 03/16/24 03/17/24 03/17/24 Range/Units 20:21 07:38 11:24 POC Glucose 182 H 162 H 247 H (70-99) mg/dl 03/17/24 Range/Units 17:04 POC Glucose 189 H (70-99) mg/dl Diagnostic Findings Chest X-Ray 03/09/24 09:13 XR chest 1V portable CLINICAL HISTORY: Shortness of breath. COMPARISON STUDY: Chest radiograph January 31, 2024. Chest CT February 20, 2021. FINDINGS: Patchy right lower lung opacities have developed since prior exam. Left lung is clear. There is no pneumothorax or pleural effusion. Pulmonary vascularity is normal. Biliary stents are partially imaged. Gaseous distention of visualized portions of the colon is incidentally noted. IMPRESSION: Interval development of patchy right basilar opacities consistent with pneumonia. ACT 112: Negative or not required by law. Electronically signed by: Noel New M.D. 03/09/2024 9:[address] 03/10/24 02:57 EXAM: CT head/brain wo con CLINICAL HISTORY: AMS. TECHNIQUE: Axial non-contrast CT scan of the brain was performed from the skull base to the high parietal region with multiple reformats. One of the following dose reduction techniques were utilized for this exam: Automated exposure control, adjustment of the mA and/or kV according to patient size, use of iterative reconstruction. COMPARISON: CT 02/07/2024 FINDINGS: Brain Parenchyma: Normal attenuation of the cerebral hemispheres, cerebellum, and brainstem. No evidence of acute infarct, hemorrhage, or mass effect. No abnormal areas of hypo- or hyperattenuation. Generalized cortical atrophy. Ventricular System: Age-related prominent ventricular system, cisterns and cortical sulci. Subarachnoid Spaces: Normal sulci and cisterns. No evidence of subarachnoid hemorrhage or extra-axial fluid collections. Cerebellum and Brainstem: Extensive artifacts from the cervical spine fixators and dental findings are obscuring the posterior fossa details. Orbits: Normal appearance of the globes, optic nerves, and extraocular muscles. Sinuses: Clear paranasal sinuses. No evidence of sinusitis or mucosal thickening. Mastoid Air Cells: Clear mastoid air cells. No evidence of mastoiditis. Skull: Normal skull morphology. IMPRESSION: 1. No acute abnormality seen. 2. Age-related involutional changes. 3. Extensive artifact from upper cervical spine fixators and dental fillings are obscuring the posterior fossa details. 4. No significant changes since prior examination. Electronically signed by Lisseth López 03-10-2024 06:12 AM Brain MRI 03/12/24 16:13 CR Exam(s): MRI HEAD W/WO Contrast IV Amt: 6cc gadavist administered EXAM: MR Head Without and With Intravenous Contrast CLINICAL HISTORY: Reason for exam: obtunded,focal weakness,r/o CVA. TECHNIQUE: Magnetic resonance images of the head/brain without and with intravenous contrast in multiple planes. CONTRAST: Patient received 6cc gadavist administered of IV contrast COMPARISON: Prior head CT from January 11, 2024. FINDINGS: Brain: There are tiny acute/subacute ischemic injuries of the right frontal, left thalamus and left occipital lobe without evidence of hemorrhagic transformation. Remote ischemic injuries of the cerebellum. Mild nonspecific white matter changes. The flow voids at the base the brain are intact. No evidence of abnormal enhancement. The dural venous sinuses are patent. Ventricles: Advanced ventriculomegaly. Bones/joints: Remote odontoid fracture with posterior fusion.. No acute fracture. Sinuses: Unremarkable as visualized. No acute sinusitis. Mastoid air cells: There is a small amount of fluid in the mastoid air cells. No mastoid effusion. Orbits: Unremarkable as visualized. IMPRESSION: Findings concerning for tiny acute/subacute ischemic injuries of the right frontal and left occipital lobes in addition to the left thalamus concerning for embolic phenomenon. Recommend CT angiogram of the head and neck for further evaluation. Communications: Verify Receipt Electronically signed by: Ely Mehta MD 03/12/24 23:18 PM Head CTA 03/12/24 23:36 EXAM: CT angio head w con CLINICAL HISTORY: NEURO , 118 ML OPTIRAY 320, TECHNIQUE: Contrast enhanced thin slice CT angiography scan of the cerebral vessels was performed with intravenous contrast. Angiographic images were processed, 3D MIP images were acquired for interpretation. Contiguous axial images were obtained. Reformatted coronal and sagittal images were also reviewed. If IV contrast material had not been administered, the likelihood of detecting abnormalities relevant to the patients condition would have been substantially decreased. CT scan was performed according to ALARA (as low as reasonable achievable). COMPARISON: none. FINDINGS: Bilateral internal carotid arteries show normal course, calibre and opacification in the canalicular and cavernous part. Their division into the anterior cerebral artery and middle cerebral artery is defined. A1, A2 and M1, M2 segments are normal on both the sides. Bilateral vertebral arteries are seen to unite the form the basilar artery in a normal fashion. Basilar artery shows normal course, caliber and opacification. Its division into the posterior cerebral arteries is defined. Left P1 and bilateral P2 segments are normal. origin of right posterior cerebral artery seen. Visualized venous structures show normal opacification. No evidence of intracranial aneurysm or AV malformation is seen. IMPRESSION: 1. No evidence of stenosis or aneurysm. No evidence of dissection. Electronically signed by Rod Coon 03-13-2024 01:32 AM Neck CTA 03/12/24 23:36 EXAM: CT angio neck with con CLINICAL HISTORY: 118 ML OPTIRAY 320, NEURO TECHNIQUE: Contrast enhanced thin slice CT angiography scan of the carotid vessels was performed with intravenous contrast. Angiographic images were processed, 3D MIP images were acquired for interpretation.Contiguous axial images were obtained. Reformatted coronal and sagittal images were also reviewed. If IV contrast material had not been administered, the likelihood of detecting abnormalities relevant to the patients condition would have been substantially decreased. CT scan was performed according to ALARA (as low as reasonable achievable). COMPARISON: None. FINDINGS: Included great vessels of the aortic arch are grossly unremarkable. Common carotid artery, carotid Bulb, internal carotid artery , and origin of the external carotid artery are well opacified. Vertebral arteries are well opacified. Jugular veins are well opacified. Included lung apices are grossly unremarkable. Thyroid gland appears unremarkable. IMPRESSION: 1. No evidence of stenosis or aneurysm. No evidence of dissection. Electronically signed by Rod Coon 03-13-2024 01:24 AM [id number] Medications Administered Current Inpatient Medications Aspirin (Aspirin 81 Mg Ectab) 81 mg PO DAILY PETROS Stop: 04/15/24 08:59 Last Admin: 03/17/24 12:05 Dose: 81 mg Bupropion HCl (Bupropion Sr 150 Mg Tabcr) 300 mg PO DAILY PETROS Stop: 04/15/24 08:59 Last Admin: 03/17/24 07:53 Dose: 300 mg Dextrose (Dextrose 50% 50 Ml Syringe) 25 - 50 ml IV UD PRN; Protocol PRN Reason: Hypoglycemia Protocol Stop: 04/09/24 00:14 Enoxaparin Sodium (Enoxaparin Inj 40 Mg/0.4 Ml Syr) 40 mg SQ Q24H PETROS Stop: 04/12/24 09:29 Last Admin: 03/17/24 07:53 Dose: 40 mg Glucagon (Glucagon For Inj 1 Mg Vial) 1 mg SQ UD PRN; Protocol PRN Reason: Hypoglycemia Protocol Stop: 04/09/24 00:14 Glucose (Glucose 40% Gel 15 Gm Tube) 15 - 30 gm PO UD PRN; Protocol PRN Reason: Hypoglycemia Protocol Stop: 04/09/24 00:14 Glucose (Glucose 10 Tab/Tube) 4 - 8 tab PO UD PRN; Protocol PRN Reason: Hypoglycemia Protocol Stop: 04/09/24 00:14 Hydrocortisone (Hydrocortisone 10 Mg Tab) 20 mg PO QAM PETROS Stop: 04/16/24 08:59 Last Admin: 03/17/24 07:53 Dose: 20 mg Hydrocortisone (Hydrocortisone 10 Mg Tab) 10 mg PO Q24H [facility] Stop: 04/15/24 16:59 Last Admin: 03/16/24 16:43 Dose: 10 mg Pantoprazole Sodium (Protonix) 40 mg in 10 mls @ 5 mls/min IV QPM PETROS Stop: 04/09/24 20:59 Last Admin: 03/16/24 21:35 Dose: 5 mls/min Piperacillin Sod/Tazobactam Sod (Zosyn) 4.5 gm in 100 mls @ 25 mls/hr IV Q8H [facility]; Protocol Stop: 03/17/24 23:59 Last Infusion: 03/17/24 12:27 Dose: Infused Insulin Aspart (Insulin Aspart Per Unit Charge) 0 units SC ACHS [facility] Stop: 04/14/24 11:44 Last Admin: 03/17/24 12:05 Dose: 8 units Insulin Glargine (Lantus Per Unit Charge) 12 units SC DAILY [facility] Stop: 04/15/24 08:59 Last Admin: 03/17/24 08:10 Dose: 12 units Miscellaneous (Carbohydrates For Hypoglycemia ) 15 - 30 gm PO UD PRN PRN Reason: Hypoglycemia Treatment Stop: 04/09/24 00:14 Miscellaneous Information (Pharmacy Glycemic Mgmt Consult) 1 each N/A UD PRN PRN Reason: Consult Stop: 04/08/24 10:04 Venlafaxine HCl (Venlafaxine Hcl Xr 150 Mg Capxr) 150 mg PO BID PETROS Stop: 04/14/24 20:59 Last Admin: 03/17/24 07:53 Dose: 150 mg PG Care Time/CCT Total # of Minutes Spent Total Time Spent with Patient: Total time spent is greater than 50% in coordination of care (as documented) at patient's floor/unit and/or counseling patient: Coding [place] [address] SUB INP/OBS CARE 04/19MIN Patient Type Established History Problem Focused Exam Problem Focused Medical Decision Making Low Complexity Diagnoses Palliative care by specialist Z51.5 Counseling regarding goals of care Z71.89 Advance care planning Z71.89
[2024-03-18 08:05] LABS: BUN Creatinine Ratio 11.9 (10-20); Blood Urea Nitrogen 7 mg/dl (6-23); Calcium 8.2 mg/dl (8.6-10.3); Carbon Dioxide 29 mmol/L (21-32); Chloride 101 mmol/L (98-107); Creatinine Clr Calc Pharmacy 80.4 ml/min; Glucose 157 mg/dl (70-99(Fasting))
[2024-03-18 09:32] LABS: Magnesium 1.6 mg/dl (1.7-2.4); Potassium 3.1 mmol/L (3.5-5.1)
[2024-03-18] MEDS: MAGNESIUM SULFATE / D5W 1 GM/100 ML BAG IV SCH (12:34)
[2024-03-18] MEDS: POTASSIUM CHLORIDE / WTR 10 MEQ/100 ML PLCT IV SCH (12:35)
--- NOTE | 2024-03-18 16:28 | Hospitalist Progress Note ---
Date of Service March 18, 2024 Assessment & Plan (1) Embolic stroke: Plan: Fortunately, she has no significant motor deficits. She is eating well at this point and is now alert and oriented. Continue current medical management (2) Sepsis: Plan: Suspected on admission. Now resolved (3) LUTHER (acute kidney injury): Plan: Acute on chronic kidney disease, stage III. Creatinine 1.7 on admission. Now 0.5, normal (4) Adrenal insufficiency: Plan: Stable. Continue oral hydrocortisone (5) Type 2 diabetes mellitus: Plan: Controlled. ADA diet. Sliding scale coverage as needed. Continue current medical management (6) Hypokalemia: Plan: Parenteral replacement. Serial labs (7) Hypomagnesemia: Plan: Parenteral replacement. Serial labs Plan Hopeful discharge back to [place] care tomorrow, March 19 Admission and Anticipated Discharge Date Admission Date: March 09, 2024 Subjective Alert and oriented. No new problems. She appears to be eating well. Parenteral potassium and magnesium replacement ordered to correct hypokalemia and hypomagnesemia. Hopefully she can return to [place] care tomorrow, March 19 Review of Systems 2 Review of Systems: Constitutionalno fever or chills ENTno blurred vision, no double vision, no epistaxis, no sore throat Respiratoryno cough, no wheezing, no shortness of breath Cardiacno palpitations, no chest pain, no syncope Jeffery nausea, vomiting, diarrhea, melena, hematochezia GUno urinary retention, no urinary incontinence, no dysuria, no hematuria Musculoskeletalno joint pain, no muscle tenderness Skinno bruising, no rashes, no pruritus Neurono isolated weakness, no paresthesia, no weakness Psychno depression, no anxiety Physical Exam 2 Physical Exam: General-alert and oriented x3, no fever, no chills HEENT-head atraumatic and normocephalic, pupils equal and reactive to light, extraocular muscles intact Neck-no lymphadenopathy or thyromegaly, trachea midline Chest-clear to auscultation. No rales, wheezing or rhonchi Cardiac-regular rate and rhythm, normal S1 and S2 Abdomen-normal bowel sounds, no hepatosplenomegaly Extremities-no cyanosis, clubbing, or edema Neuro-cranial nerves II through XII intact, motor and sensory function within normal limits, strength symmetrical with generalized weakness, no focal deficits Psych-normal affect, normal mood Results & Data Results & Data Vital Signs (Past 12 Hours) Vital Signs Temp Pulse Pulse Resp BP Pulse Ox O2 Del Method 03/18/24 15:12 36.5 C 81 16 126/75 97 Room Air 03/18/24 08:00 36.6 C 71 18 153/81 H 94 Room Air Laboratory Results 03/14/24 05:50 03/18/24 08:55 PG Care Time/CCT Total # of Minutes Spent Total Time Spent with Patient: Total time spent is greater than 50% in coordination of care (as documented) at patient's floor/unit and/or counseling patient: Coding Level of Care Code 32610 SUB INP/OBS CARE 3/50MIN Diagnoses Embolic stroke I63.9 Sepsis A41.9 Sepsis acute organ dysfunction status: unspecified Sepsis type: sepsis due to unspecified organism LUTHER (acute kidney injury) N17.9 Adrenal insufficiency E27.40 Type 2 diabetes mellitus E11.9 Hypokalemia E87.6 Hypomagnesemia E83.42 (2) Sepsis Sepsis acute organ dysfunction status: unspecified Sepsis type: sepsis due to unspecified organism Qualified Code(s): A41.9 - Sepsis, unspecified organism
[2024-03-18] MEDS: PANTOprazole 40 MG TAB PO SCH (21:41)
[2024-03-19 06:36] LABS: Basophils # (auto) 0.02 K/uL (0.00-0.20); Basophils % (auto) 0.2 %; Hematocrit (blood only) 30.1 % (37.0-47.0); Hemoglobin 10.1 g/dl (12.0-16.0); Immature Granulocytes # (auto) 0.17 K/uL (0.01-0.20); Immature Granulocytes % (auto) 1.7 %; Lymphocytes # (auto) 1.99 K/uL (1.20-3.40); Lymphocytes % (auto) 20.2 %; Mean Corpuscular Hemoglobin 28.6 pg (25.0-34.0); Mean Corpuscular Hgb Conc 33.6 g/dL (32.0-36.0); Mean Corpuscular Volume 85.3 fL (80.0-100.0); Mean Platelet Volume 9.5 fL (9.4-12.4); Monocytes # (auto) 0.28 K/uL (0.11-0.59); Monocytes % (auto) 2.8 %; Neutrophils # (auto) 7.09 K/uL (1.40-6.50); Neutrophils % (auto) 72.1 %; Platelet Count 217 K/uL (130-400); RDW Coefficient of Variation 13.2 % (11.5-14.5); RDW Standard Deviation 41.1 fL (36.4-46.3); Red Blood Count 3.53 M/uL (4.20-5.40); White Blood Count 9.85 K/ul (4.8-10.8)
[2024-03-19 07:02] LABS: BUN Creatinine Ratio 10.9 (10-20); Calcium 8.6 mg/dl (8.6-10.3); Creatinine Clr Calc Pharmacy 86.3 ml/min; Magnesium 1.7 mg/dl (1.7-2.4); Potassium 3.4 mmol/L (3.5-5.1)
[2024-03-19] MEDS: MAGNESIUM OXIDE 400 MG TAB PO SCH (10:26)
[2024-03-19] MEDS: POTASSIUM CHLORIDE 10 MEQ TABCR PO SCH (10:26)
--- NOTE | 2024-03-19 11:22 | Discharge Summary ---
Discharge Summary Date of Service March 19, 2024 Principal Dx & Hospital Course #1 = Principal Diagnosis (1) Embolic stroke: Fortunately, she has no significant motor deficits. She is eating well at this point and is now alert and oriented. Continue current medical management (2) Sepsis: Suspected on admission. Now resolved (3) LUTHER (acute kidney injury): Acute on chronic kidney disease, stage III. Creatinine 1.7 on admission. Now normalized to baseline (4) Adrenal insufficiency: Stable. Continue oral hydrocortisone maintenance therapy (5) Type 2 diabetes mellitus: Controlled. ADA diet. Sliding scale coverage as needed. Continue current medical management (6) Hypokalemia: Normalized with parenteral replacement. Oral replacement started. Serial labs (7) Hypomagnesemia: Normalized with parenteral replacement. Oral replacement started. Serial labs Plan Discharge back to [facility] today, March 19 Admission HPI Per Admitting Provider This is a 73-year-old female with past medical history of CKD, type 2 diabetes, gastroparesis, vitamin D deficiency, adrenal insufficiency who presented to the emergency department on 03/09/24 due to a decline in mental state over 24 hours. The patient was seen and examined at bedside. She appeared in moderate distress. She was hypotensive, tachycardic, and on BiPAP at time of encounter. She was unable to provide any meaningful history. She was unable to respond to verbal stimuli but did wince to pain. Nurse was at bedside at time of encounter. Following this encounter, patient's primary contact being her mother was notified by phone of her condition. Discussed CODE STATUS with the patient's mother who would like to keep the patient a DNR as this is her status during her last hospitalization. While in the emergency department patient did undergo a chest x-ray that was consistent with pneumonia. She was given daptomycin and cefepime. She was also found to be hyperglycemic and in DKA. Patient was started on an insulin drip. She was found to have a leukocytosis of 20.59 and a lactate of 5.2. Creatinine was elevated at 1.72. Tropes elevated at 28.5. Procalcitonin elevated at 0.90. Urinalysis positive for UTI as well. Blood cultures and urine culture are both pending. Discharge Exam General-alert and oriented x3, no fever, no chills HEENT-head atraumatic and normocephalic, pupils equal and reactive to light, extraocular muscles intact Neck-no lymphadenopathy or thyromegaly, trachea midline Chest-clear to auscultation. No rales, wheezing or rhonchi Cardiac-regular rate and rhythm, normal S1 and S2 Abdomen-normal bowel sounds, no hepatosplenomegaly Extremities-no cyanosis, clubbing, or edema Neuro-cranial nerves II through XII intact, motor and sensory function within normal limits, strength symmetrical with generalized weakness, no focal deficits Psych-normal affect, normal mood Discharge Plan Discharge Items Patient Disposition: Transfer [facility] Reason For Visit: AMS Discharge Diagnosis: Thromboembolic multiple CVA, acute on chronic kidney disease stage III, hypokalemia, hypomagnesemia Condition on Discharge: Fair Activity: Resume your previous activity Non-emergency contact: Primary Care Provider Call non-emergency contact if: your symptoms worsen Follow-up/Referrals: Yessi Howell MD [Primary Care Provider] - Diet: Carb Consistent or DM2 and Heart Healthy Addtl Attending Provider Instructions: Potassium and magnesium supplements have been added to your medication regimen to keep potassium and magnesium levels normal Pending Studies at Discharge: No Stand-Alone Forms: [facility] Skilled Items Patient informed of condition?: Yes DNR: Yes Discharge Level of Care: Skilled Communicable Disease: No Discharge Prognosis: Stable Lines: None Urinary Catheter: No Medications and DC Order Prescriptions: New magnesium oxide 400 mg (241.3 mg magnesium) Tablet 400 mg PO QAM Qty: 20 0RF potassium chloride 10 mEq Tablet,Er Particles/Crystals 10 meq PO DAILY Qty: 2 0RF Continued aspirin 81 mg tablet,delayed release (DR/EC) 81 mg PO DAILY Qty: 90 3RF metformin 1,000 mg tablet 1,000 mg PO BID Qty: 180 3RF rosuvastatin 20 mg tablet 20 mg PO QAM Qty: 90 3RF (DME) pen needle, diabetic [BD Ultra-Fine Marleny Pen Needle] 32 gauge x 5/32" needle See Dose Instructions .ROUTE .MEDSUPPLY Qty: 400 3RF Dose Instruction: As directed Rx Instructions: use to inject insulin 4 x daily (DME) OneTouch Ultra Test Strip See Rx Instructions .Route Qty: 600 1RF Rx Instructions: test 6 times a day (DME) blood-glucose meter Kit See Dose Instructions .ROUTE .MEDSUPPLY Qty: 1 0RF Rx Instructions: Test 6 times a day. OneTouch Ultra insulin lispro [Humalog KwikPen Insulin] 100 unit/mL insulin pen See Rx Instructions .ROUTE .COMPLEX Rx Instructions: Before meals and at bedtime: 351-400 = 8units; 401-450 = 12 units; 451-500 = 16units; 501-550 = 18 units; 551+ = 20 units. No sabrina MD if BSG <70 or BSG >550 bupropion HCl 150 mg tablet sustained-release 12 hr 300 mg PO DAILY cyanocobalamin (vitamin B-12) 1,000 mcg tablet 1,000 mcg PO DAILY cholecalciferol (vitamin D3) 2,000 unit capsule 2,000 units PO DAILY venlafaxine 150 mg capsule,extended release 24hr 150 mg PO BID gabapentin 300 mg capsule 300 mg PO TID amoxicillin 500 mg capsule 2,000 mg PO DIRECTED PRN (Reason: 1 HR PRIOR TO DENTAL PROCEDURES) Rx Instructions: TAKE 4 CAPSULES 1 HOUR PRIOR TO DENTAL APPOINTMENT albuterol sulfate 90 mcg/actuation Hfa Aerosol Inhaler 2 puff INHALATION Q4H PRN (Reason: Shortness Of Breath Or Wheezing) magnesium oxide 400 mg (241.3 mg magnesium) Tablet 400 mg PO BID 30 Days Qty: 60 0RF hydrocortisone [Cortef] 10 mg Tablet 10 mg PO QPM 30 Days Qty: 30 0RF magnesium hydroxide [Milk of Magnesia] 400 mg/5 mL Suspension See Rx Instructions .ROUTE .COMPLEX Rx Instructions: Milk of Magnesia 7.75% suspension: Give 30ml by mouth as needed for constipation after no BM for 3 days. Administer on 7-3 shift. bisacodyl [Dulcolax (bisacodyl)] 10 mg Suppository 10 mg NM DAILY PRN (Reason: Constipation) Rx Instructions: Give on day 3; 3-11 shift if no BM after MOM pantoprazole 40 mg Tablet,Delayed Release (Dr/Ec) 40 mg PO DAILY buspirone 30 mg tablet 30 mg PO BID hydrocortisone 20 mg tablet 20 mg PO QAM Fleet Enema 19-7 gram/118 mL Enema 118 ml NM DAILY PRN (Reason: Constipation) Rx Instructions: If no BM after dulcolax, administer on 7-3 shift on day 4 acetaminophen 500 mg tablet 1,000 mg PO Q8H PRN (Reason: pain) insulin glargine [Lantus Solostar U-100 Insulin] 100 unit/mL (3 mL) insulin pen 10 unit subcut BID Discharge Orders: Discharge Order (Routine); Ordered 03/19/24 Ordered By: Miguel Duckworth Admission Data Admit Date/Time: 03/09/24 10:10 Attending Provider: Miguel Duckworth Admit Provider: Scottie Swenson Primary Care Provider: Yessi Howell Other Providers: Gabriel Triana; [facility]; Scottie Swenson; Michelle Carlos; Bekah Devi; Gabriel Henriquez; Lyle Painter; Radha Swift; Joanna Carrillo; Rosario Kulkarni; Sean Jones Hospital Stay Data Consultations 03/09/24 09:51 Consult Agricultural Equipment Design Engineer Stat 03/09/24 09:54 ED Decision to Admit Stat 03/09/24 10:05 Consult Agricultural Equipment Design Engineer Routine 03/11/24 08:47 Consult Palliative Care Routine 03/12/24 23:41 Consult Neurology Routine Diagnostic Imagining Performed 03/10/24 02:57 CT head/brain wo con Routine 03/12/24 16:13 MR brain wo/w con Stat 03/12/24 23:36 CTA head w con [CT angio head w con] Stat CTA neck with con [CT angio neck with con] Stat Pending Results Patient Have Any Pending Studies at Discharge: No Discharge Instructions Given to Patient (Per Discharging Provider) Potassium and magnesium supplements have been added to your medication regimen to keep potassium and magnesium levels normal Total Time Total Time Spent Total Time Spent (In Minutes): 45 minutes Coding Level of Care Code 53243 INP/OBS DISCH >30 MIN Diagnoses Embolic stroke I63.9 Sepsis A41.9 Sepsis acute organ dysfunction status: unspecified Sepsis type: sepsis due to unspecified organism LUTHER (acute kidney injury) N17.9 Adrenal insufficiency E27.40 Type 2 diabetes mellitus E11.9 Hypokalemia E87.6 Hypomagnesemia E83.42
[2024-03-20 07:38] VITALS: BP 152/80; PULSE 75; RESP 16; TEMP 98.2; O2SAT 94
[2024-03-20 08:04] LABS: Basophils # (auto) 0.02 K/uL (0.00-0.20); Basophils % (auto) 0.2 %; Eosinophils % (auto) 3.2 %; Hematocrit (blood only) 29.6 % (37.0-47.0); Hemoglobin 9.8 g/dl (12.0-16.0); Immature Granulocytes # (auto) 0.16 K/uL (0.01-0.20); Immature Granulocytes % (auto) 1.7 %; Lymphocytes # (auto) 2.13 K/uL (1.20-3.40); Mean Corpuscular Hemoglobin 28.7 pg (25.0-34.0); Mean Corpuscular Hgb Conc 33.1 g/dL (32.0-36.0); Mean Corpuscular Volume 86.8 fL (80.0-100.0); Mean Platelet Volume 9.4 fL (9.4-12.4); Monocytes # (auto) 0.41 K/uL (0.11-0.59); Monocytes % (auto) 4.4 %; Neutrophils # (auto) 6.24 K/uL (1.40-6.50); Neutrophils % (auto) 67.5 %; Platelet Count 213 K/uL (130-400); RDW Coefficient of Variation 13.4 % (11.5-14.5); RDW Standard Deviation 41.7 fL (36.4-46.3); Red Blood Count 3.41 M/uL (4.20-5.40); White Blood Count 9.26 K/ul (4.8-10.8)
[2024-03-20 08:08] LABS: Calcium 8.5 mg/dl (8.6-10.3); Potassium 3.7 mmol/L (3.5-5.1)
[2024-03-20 08:13] LABS: BUN Creatinine Ratio 12.5 (10-20); Creatinine Clr Calc Pharmacy 74.1 ml/min
--- NOTE | 2024-03-20 10:35 | Communication Note ---
Date of Service: March 20, 2024 Transportation issues prevented the patient from returning to [facility] yesterday, March 19, as planned. She will be discharged today, March 20. Nothing has changed.
== END 2024-03-20 13:15 | DRG 871 ==
LOC: ED 09:05 → SUATTDRO 10:10 → 1E 10:10 → 2S 03-11 19:00 → 3W 03-16 16:33
DX: Z96.89 Presence of other specified functional implants; N39.0 Urinary tract infection, site not specified; I42.8 Other cardiomyopathies; E11.10 Type 2 diabetes mellitus with ketoacidosis without coma; I24.89 Other forms of acute ischemic heart disease; Z66 Do not resuscitate; R41.4 Neurologic neglect syndrome; N17.0 Acute kidney failure with tubular necrosis; J96.91 Respiratory failure, unspecified with hypoxia; Z79.4 Long term (current) use of insulin; E87.3 Alkalosis; G93.41 Metabolic encephalopathy; I25.10 Atherosclerotic heart disease of native coronary artery without angina pectoris; N18.30 Chronic kidney disease, stage 3 unspecified; E11.43 Type 2 diabetes mellitus with diabetic autonomic (poly)neuropathy; E55.9 Vitamin D deficiency, unspecified; E83.42 Hypomagnesemia; E27.40 Unspecified adrenocortical insufficiency; R65.21 Severe sepsis with septic shock; E87.6 Hypokalemia; N17.9 Acute kidney failure, unspecified; I25.2 Old myocardial infarction; J18.9 Pneumonia, unspecified organism; I63.40 Cerebral infarction due to embolism of unspecified cerebral artery; A41.52 Sepsis due to Pseudomonas; E86.0 Dehydration; I12.9 Hypertensive chronic kidney disease with stage 1 through stage 4 chronic kidney disease, or unspecified chronic kidney disease